=== PATIENT | male | born 1960 | race Caucasian/White ===

== ENCOUNTER 2020-08-18 09:16 | Inpatient (IN) | payer BC, SELFPAY ==
[2020-08-18] VITALS (8 sets, daily range): BP systolic 89–109; BP diastolic 46–62; PULSE 70–104; RESP 12–17; TEMP 35.4–36.6; O2SAT 98–100
--- NOTE | ~2020-08-18 | XR_ITS ---
EXAMINATION: XR foot LT min 3V DATE: 08/18/2020 10:21 INDICATION: Left foot pain. TECHNIQUE: 4 views of left foot were obtained. COMPARISON: None. FINDINGS: Pes planus is noted. No fracture. There is mild osteoarthritis of first metatarsophalangeal joint and some of the interphalangeal joints and midfoot joints. There is a suture anchor at fifth t arsometatarsal joint. There are enthesophytes at the posterior and plantar aspects of calcaneal tuber osity. IMPRESSION: 1. Pes planus. 2. Mild polyarticular osteoarthritis. Reviewed, dictated and finalized at location B. D EDUCATION DIRECTOR
--- NOTE | ~2020-08-18 | MR_ITS ---
EXAMINATION: MR foot LT wo/w con DATE: 08/19/2020 12:37 INDICATION: Left forefoot abscess TECHNIQUE: Magnetic resonance imaging (MRI) of the left fore/mid foot was performed without intraveno us contrast. Sequences included sagittal T1-weighted FSE, sagittal fluid sensitive FSE STIR, coronal PD-weighted FS FSE, coronal T1-weighted FSE, axial PD-weighted FS FSE, and axial PD-weighted FSE. COMPARISON: None FINDINGS: There is a large peripherally enhancing abscess in the superficial subcutaneous tissues over the dors um of the forefoot which extends at least 12 cm proximal to distal beginning distally but appears to be an open wound at the webspace between the second and third toes extensively proximal most margin o f imaging at the level of the cuneiforms. The abscess measures up to 10 cm medial to lateral and up t o 9 mm in maximal thickness. Distally at the base of the second and third toes there are contiguous geographic regions of nonenhan cing tissue with interspersed foci of T1 hyperintense fat with intervening retained fascial planes wh ich does not appear consistent with abscess and raises significant concern for necrotic soft tissue h istory of necrotizing fasciitis. The region of nonenhancing tissue extends beyond the plantar plate i nto the musculature and subcutaneous fat plantar to the distal diaphyses of the second-fourth metatar sals and plantar to the fifth proximal phalanx. There is significant enhancement and edema in the leticia rounding soft tissues consistent with cellulitis. No definitive gas identified within the soft tissue s. No fracture or osteomyelitis. Moderate osteoarthritis at the first metatarsophalangeal and mild os teoarthritis at multiple interphalangeal and tarsal metatarsal joints. IMPRESSION: 1. 12 x 10 x 9 mm peripherally enhancing subcutaneous abscess over the dorsum of the foot. 2. Region of nonenhancing soft tissue surrounding the base of the second and third proximal phalanges and extending into the soft tissues plantar to the distal second-fourth metatarsals which is concern ing for necrotizing fasciitis. Dr. Campa discussed these findings with Regine Deluna at 12:45 PM. 3. Mild to moderate polyarticular osteoarthritis in the forefoot. No evident osteomyelitis. Reviewed, dictated and finalized at location A. RN KEEPER IMPRESSION: 1. 12 x 10 x 9 mm peripherally enhancing subcutaneous abscess over the dorsum o f the foot. 2. Region of nonenhancing soft tissue surrounding the base of the second and th ird proximal phalanges and extending into the soft tissues plantar to the dista l second-fourth metatarsals which is concerning for necrotizing fasciitis. Dr. Campa discussed these findings with Regine Deluna at 12:45 PM. 3. Mild to moderate polyarticular osteoarthritis in the forefoot. No evident os teomyelitis.
--- NOTE | ~2020-08-18 | CT_ITS ---
EXAMINATION: CT LE LT w con DATE: 08/18/2020 22:48 INDICATION: Left foot infection. TECHNIQUE: Computed tomography (CT) of the left foot and ankle was performed without intravenous cont rast. Automated exposure control and iterative reconstruction technique were employed. The dose-lengt h product was 705.50 mGy-cm. COMPARISON: Left foot radiographs 08/18/2020 FINDINGS: Bone alignment is normal. No fracture. There is a suture anchor in base of fifth metatarsal . There is mild osteoarthritis of first metatarsophalangeal joint and many of the interphalangeal erin nts and midfoot joints. There is mild ankle joint osteoarthritis. There are enthesophytes at the post erior and plantar aspects of calcaneal tuberosity. There is widespread subcutaneous edema. IMPRESSION: 1. No evidence of osteomyelitis. 2. Mild polyarticular osteoarthritis. Reviewed, dictated and finalized at location D. LY LAWYER
[2020-08-18] MEDS: SODIUM CHLORIDE 0.9% IV 1,000 ML 999 ML IV CONT ×2 (09:30→10:57)
[2020-08-18 09:56] LABS: Hematocrit 41.5 % (42.0-52.0); Hemoglobin 14.6 g/dL (14.0-18.0); Immature Platelet Fraction Pct 5.4 % (0.9-11.2); Mean Corpuscular HGB Conc 35.2 g/dl (32-36); Mean Corpuscular Hemoglobin 35.4 pg (26-34); Mean Corpuscular Volume 100.5 fl (80-100); Mean Platelet Volume 10.4 fl (7.4-10.4); Platelet Count Result 109 k/mm3 (150-375); Red Blood Count 4.13 M/mm3 (4.6-6.20); White Blood Count 12.8 K/mm3 (4.5-10.0)
[2020-08-18 10:12] LABS: Albumin Level 3.2 g/dL (3.5-5.1); Alkaline Phosphatase 121 U/L (38-126); Anion Gap 9 mmol/L (8-16); Aspartate Amino Transferase 39 U/L (17-59); Bilirubin,Total 5.4 mg/dL (0.2-1.3); Blood Urea Nitrogen 24 mg/dL (9-20); Calcium 8.2 mg/dL (8.4-10.2); Carbon Dioxide 24 mmol/L (22-30); Chloride 90 mmol/L (98-107); Estimated Glomerular Filt Rate > 60; Glucose 103 mg/dL (75-110); Lactic Acid Reflex 5.4 mmol/L (0.7-2.1); Potassium 3.4 mmol/L (3.4-5.0); Sodium 123 mmol/L (137-145)
[2020-08-18 10:15] LABS: Band Neutrophils Percent 9 % (0-6); Lymphocytes Absolute Manual 0.38 K/mm3 (1.1-4.5); Monocytes Absolute Manual 0.25 K/mm3 (0.1-0.90); Monocytes Percent Manual 2 % (3-9); Neutrophils Absolute Manual 12.16 K/mm3 (1.3-6.7); Neutrophils Percent Manual 86 % (46-73); Platelet Estimate Adequate (Adequate); Total Cells Counted 100
[2020-08-18 10:23] LABS: Alanine Aminotransferase 21 U/L (4-50)
[2020-08-18 10:28] LABS: CRP 15.6 mg/dL (<1.0)
[2020-08-18 10:40] LABS: Erythrocyte Sedimentation Rate 28 mm/hr (0-20)
--- NOTE | 2020-08-18 11:24 | ED.GENADULT ---
HPI - General Adult General Chief complaint: Wound/Laceration Stated complaint: Left Foot Ulcer, PCP sent patient Time Seen by Provider: 08/18/20 09:23 History of Present Illness HPI narrative: Patient is a 60-year-old gentleman who presents the emergency department with chief complaint of wound to left foot. Patient was sent from his doctor's office after they have been managing a chronic wound to his left foot for some time. They have noticed that now his foot has become more reddened and the redness is tracking up his foot as well as he has areas of open draining to his toes. Patient reports he has history of liver disease and is cirrhotic. He reports he has been on antibiotics in the past for this without improvement. Related Data Home Medications Medication Instructions Recorded Confirmed aspirin 325 mg tablet 325 mg PO DAILY 08/19/19 03/01/20 furosemide 40 mg tablet 40 mg PO DAILY tablet 08/19/19 03/01/20 lactulose 10 gram/15 mL oral 5 ml PO DAILY ml 08/19/19 03/01/20 solution omeprazole 20 mg capsule,delayed 40 mg PO BID cap 08/19/19 03/01/20 release spironolactone 100 mg tablet 100 mg PO DAILY 08/19/19 03/01/20 thiamine HCl (vitamin B1) 250 mg 250 mg PO DAILY 08/19/19 03/01/20 tablet ciprofloxacin HCl 500 mg tablet 500 mg PO DAILY tablet 08/20/19 03/01/20 Allergies Allergy/AdvReac Type Severity Reaction Status Date / Time No Known Allergies Allergy Unknown Unverified 03/01/20 13:42 Review of Systems Review of Systems: Narrative: A 10 system review of systems was completed on the patient and is negative except for what is stated in the HPI. Nursing and ancillary documentation was reviewed. [facility] Past Medical History Medical History Alcohol abuse Alcoholic cirrhosis of liver with ascites Alcoholic cirrhosis of liver without ascites Atrial fibrillation with controlled ventricular rate Essential hypertension PAF (paroxysmal atrial fibrillation) Preop cardiovascular exam Surgical History Surgical History History of hernia repair History of surgery on wrist Family History Family History Mother Hypertension Family history of diabetes mellitus in first degree relative Diabetes mellitus Father Family history of pancreatic cancer Social History Social History Smoking status: Former smoker Alcohol intake: current Exam Narrative: Exam Narrative: GENERAL: Well-appearing, well-nourished, and in no acute distress. HEAD: Normocephalic, atraumatic. EYES: PERRLA and EOMI. ENT: Nares clear, no rhinorrhea or epistaxis. Mucous membranes moist. NECK: Supple. CHEST: Clear to auscultation. No respiratory distress. HEART: Regular rate and rhythm. No murmur heard. Normal peripheral pulses. ABDOMEN: Soft, nontender, nondistended, normal active bowel sounds. EXTREMITIES: Normal range of motion. No edema. Left foot there is erythema and swelling of the dorsum of the foot there is a wound in the third and fourth digits draining serosanguineous fluid. SKIN: Warm, dry, no rash. NEURO: No focal deficits. Alert and oriented x3. PSYCH: Normal mood and affect. Course Course Emergency Course: On initial evaluation fluid resuscitation was started on the patient he was also given a dose of vancomycin and Zosyn the patient's lactate was found to be elevated continuing resuscitation. Vital Signs Vital signs: Vital Signs Temperature 36.1 C L 08/18/20 10:35 Pulse Rate 70 08/18/20 10:35 Respiratory Rate 17 08/18/20 10:35 Blood Pressure 89/46 L 08/18/20 10:35 Pulse Oximetry 100 08/18/20 10:35 Temperature 36.1 C L 08/18/20 10:35 Pulse Rate 70 08/18/20 11:57 Respiratory Rate 15 08/18/20 11:57 Blood Pressure 92/54 L 08/18/20 11:57 Puls
[2020-08-18 12:08] LABS: Add Urine Microscopic? YES; Appearance Urine Clear (Clear); Bilirubin Urine Negative (Negative); Blood Urine Negative (Negative); Color Urine Yellow (Yellow); Glucose Urine UA Negative (Negative); Hyaline Casts Urine 20-29 /lpf; Ketones Urine Negative (Negative); Leukocyte Esterase Ur Negative LEU/UL (Negative); Mucus Urine Rare /lpf; Nitrate Urine Negative (Negative); Protein Urine Negative (Negative); Specific Grav Ur 1.013 (1.001-1.035); Squamous Epithelial Cell Urine Rare /hpf (Few); WBC Urine 0-3 /hpf
[2020-08-18 12:52] LABS: Reflex Lactic Acid Yes or No Add Lactic
[2020-08-18 13:29] LABS: Lactic Acid 1.6 mmol/L (0.7-2.1)
--- NOTE | 2020-08-18 13:30 | PM.IMHP ---
H&P: HPI History of Present Illness Date/Time: 08/18/20 13:30 Chief Complaint: Left foot wound. Narrative: This is a 60-year-old male with history of essential hypertension, paroxysmal atrial fibrillation, and alcoholic cirrhosis (patient longer drinking) who presented to the emergency department earlier today from his primary care provider's office for evaluation of a left foot wound. He has a chronic callus on his left foot which is being followed by local child and family services specialist. Several weeks ago ?after a long day on my feet? he noticed a large blister had developed near the callus and developed spreading erythema the following day. It got to the point where he could barely even put weight on his foot due to excruciating, sharp pain throughout the bottom of the foot which has began to extend up into the calf. The blister has since open and is draining serosanguineous fluid. He saw his child and family services specialist in follow-up this morning and was referred to the emergency department due to the development of infection. He has not been on antibiotics for this particular infection, but does take ciprofloxacin daily and has for the past 2 and half years after a hernia repair. In any regard, he reports intermittent numbness in the bottom of the left foot but with further questioning he has the same on the right foot and has been told that he likely has underlying neuropathy. Aside from the redness and bruising he has not noticed any color changes to the foot. The surrounding area has been hot to touch. Appetite has been decreased. He has not had fever, chills, or sweats. No nausea or vomiting. Review of Systems Review of Systems: Narrative: Twelve systems were reviewed with pertinent positives and negatives as per HPI. He denies fever, chills, and sweats. No sinus congestion, rhinorrhea, otalgia, or odynophagia. No known exposure to those positive for COVID-19. He denies chest pain shortness of breath. No nausea, vomiting, or diarrhea. No dysuria. No history of multidrug resistant organisms. Reports that he quit drinking alcohol about 2 years ago but did drink some over this summer 2019. No recent alcohol use. Previously on the liver transplant list but after he quit drinking his numbers drastically improved and he did not meet criteria for transplant thereafter. Except as documented, all other systems were reviewed and are negative. [facility] Past Medical History Medical History (Updated 08/18/20 @ 22:12 by Rosi Cheatham PA-C) Alcoholic cirrhosis of liver He has abstained from alcohol for at least 2 years as of July 2020. Essential hypertension Gastroesophageal reflux disease Paroxysmal atrial fibrillation Surgical History Surgical History (Updated 08/18/20 @ 13:59 by Rosi Cheatham PA-C) History of surgery on arm (~2012) ORIF right humerus fracture. History of surgery on wrist History of ventral hernia repair (~11/2013) Subsequent abdominal wall exploration with drainage of a seroma at the same site in 03/2014. Family History Family History Mother Hypertension Family history of diabetes mellitus in first degree relative Diabetes mellitus Father Family history of pancreatic cancer Social History Social History (Updated 08/18/20 @ 22:08 by Rosi Cheatham PA-C) Social History: The patient lives alone in [place]. Retired from [employer]. He has a longstanding history of alcohol abuse but has abstained from alcohol for nearly 2 years as of July 2020. A nonsmoker. No illicit substance use. He designates his daughter Shawna as his surrogate decision maker and wishes to be a full code. Smoking status: Never smoker Alcohol intake: former Substance use: never Spiritual care concerns: No Meds Home Medications and Allergies Home Medications Medication Instructions Recorded Confirmed Type furosemide 40 mg tablet 40 mg PO DAILY tablet 08/19/19
--- NOTE | 2020-08-18 14:36 | PC.NURSE ---
This patient, Rhett Garner, was admitted to IMU Room 214-01. Patient/family oriented to hospital policies and general routines including ID bracelet, bed and alarms, visiting hours, pain management, procedures, bathroom and other care routines, personal items, smoking policy, room service/diet, and visiting hours. Information on how to activate the Rapid Response Team has been discussed. Patient/Family are encouraged to report perceived risks to care and to ask questions if they do not understand what they are told or what they should do.
[2020-08-18] MEDS: SODIUM CHLORIDE 0.9% IV 1,000 ML 100 ML IV CONT (15:46)
[2020-08-18 15:52] LABS: INR 1.5; Prothrombin Time 19.1 Seconds (11.1-14.7)
[2020-08-18 15:53] LABS: Sodium 124 mmol/L (137-145)
[2020-08-18 17:00] LABS: Folic Acid 11.8 ng/mL (2.76->20)
[2020-08-18 20:10] LABS: Sodium 124 mmol/L (137-145)
[2020-08-18] MEDS: HYDROcodone/acetaminophen (*CRX) 5-325 MG TABLET 1 TAB PO (23:29)
[2020-08-18 23:46] LABS: Sodium Urine Random 13 meq/L
[2020-08-18 23:46] LABS: Sodium 124 mmol/L (137-145)
[2020-08-18 23:50] LABS: Creatinine Urine 85.6 mg/dL
[2020-08-19] VITALS (24 sets, daily range): BP systolic 90–117; BP diastolic 44–66; PULSE 66–95; RESP 10–20; TEMP 36–37.6; O2SAT 95–100; BMI 25.8
[2020-08-19] MEDS: SODIUM CHLORIDE 0.9% IV 1,000 ML 999 ML IV CONT (00:42)
[2020-08-19 04:10] LABS: Basophils Percent Auto 0.3 % (0.2-1.2); Eosinophils Percent Auto 0.1 % (0-4.4); Hematocrit 33.4 % (42.0-52.0); Hemoglobin 11.8 g/dL (14.0-18.0); Immature Granulocyte Absolute 0.13 K/mm3 (0.00-0.031); Immature Granulocyte Percent A 1.3 % (0-0.5); Lymphocytes Absolute Auto 0.26 K/mm3 (0.9-3.2); Lymphocytes Percent Auto 2.6 % (18.3-44.2); Mean Corpuscular HGB Conc 35.3 g/dl (32-36); Mean Corpuscular Hemoglobin 34.7 pg (26-34); Mean Corpuscular Volume 98.2 fl (80-100); Mean Platelet Volume 9.9 fl (7.4-10.4); Monocytes Absolute Auto 1.5 K/mm3 (0.1-0.6); Monocytes Percent Auto 14.3 % (2.6-8.5); Neutrophils Absolute Auto 8.3 K/mm3 (1.3-6.7); Neutrophils Percent Auto 81.4 % (45.5-73.1); Platelet Count Result 79 k/mm3 (150-375); Red Cell Distribution Width 12.9 % (11.5-14.5); White Blood Count 10.1 K/mm3 (4.5-10.0)
[2020-08-19 04:22] LABS: Alanine Aminotransferase 14 U/L (4-50); Albumin Level 2.1 g/dL (3.5-5.1); Alkaline Phosphatase 85 U/L (38-126); Anion Gap 2 mmol/L (8-16); Aspartate Amino Transferase 29 U/L (17-59); Bilirubin Direct 0.6 mg/dL (0-0.3); Bilirubin Indirect 1.3 mg/dL (0-1.1); Bilirubin,Total 2.9 mg/dL (0.2-1.3); Blood Urea Nitrogen 19 mg/dL (9-20); Calcium 7.1 mg/dL (8.4-10.2); Carbon Dioxide 25 mmol/L (22-30); Chloride 98 mmol/L (98-107); Estimated CRCL calculation 91 ml/min; Estimated Glomerular Filt Rate > 60; Glucose 100 mg/dL (75-110); Potassium 3.6 mmol/L (3.4-5.0); Sodium 125 mmol/L (137-145)
[2020-08-19] MEDS: SODIUM CHLORIDE 0.9% IV 1,000 ML 100 ML IV CONT (05:51)
[2020-08-19] MEDS: HYDROcodone/acetaminophen (*CRX) 5-325 MG TABLET 1 TAB PO (06:16)
[2020-08-19] MEDS: SODIUM CHLORIDE 0.9% IV 1,000 ML 500 ML IV CONT (06:57)
[2020-08-19 08:09] LABS: Sodium 126 mmol/L (137-145)
[2020-08-19] MEDS: LACTULOSE 20 GM/30 ML UDC 3.33333 GM PO (08:50)
[2020-08-19] MEDS: THIAMINE HCL 50 MG TABLET PO (08:51)
[2020-08-19] MEDS: THIAMINE HCL 100 MG TABLET 200 MG PO (08:51)
[2020-08-19] MEDS: PANTOPRAZOLE 40 MG TABLET PO (08:51)
--- NOTE | 2020-08-19 11:48 | PM.CNOR ---
Assessment and Plan Assessment and plan (1) Neuropathic ulcer of foot: Qualifiers: Laterality: left Non-pressure ulcer stage: with necrosis of muscle Qualified Code(s): L97.523 - Non-pressure chronic ulcer of other part of left foot with necrosis of muscle <Regine Maciel Deluna, [facility] - Last Filed: 08/19/20 12:58> Code(s): L97.509 - Non-pressure chronic ulcer of other part of unspecified foot with unspecified severity <Regine Maciel Deluna, INSTRUMENT ROOM TECHNICIAN - Last Filed: 08/19/20 12:58> Status: Acute <Regine Maciel Deluna, INSTRUMENT ROOM TECHNICIAN - Last Filed: 08/19/20 12:58> Assessment and Plan: History, exam and radiographs reviewed with the patient. CT scan of the lower extremity does not include the forefoot/area of immediate concern. We will obtain MRI of the left foot at this time for further evaluation and surgical planning purposes. Continue IV antibiotics per the hospitalist team. Left foot to be covered with dry gauze dressing, orders entered and nursing made aware. Elevate the left lower extremity on pillows. Nonweightbearing left lower extremity. Awaiting culture results of foot wound and blood cultures. Preliminary results both reveal Gram-positive cocci. Patient NPO at this time. We will determine surgical intervention pending MRI results. <Regine Deluna, INSTRUMENT ROOM TECHNICIAN - Last Filed: 08/19/20 12:58> (2) Left leg cellulitis: Code(s): L03.116 - Cellulitis of left lower limb <Regine Lawsmiky, [facility] - Last Filed: 08/19/20 12:58> Status: Acute <Regine Maciel Deluna, INSTRUMENT ROOM TECHNICIAN - Last Filed: 08/19/20 12:58> (3) Severe sepsis: Code(s): A41.9 - Sepsis, unspecified organism; R65.20 - Severe sepsis without septic shock <Regine Maciel Deluna, INSTRUMENT ROOM TECHNICIAN - Last Filed: 08/19/20 12:58> Status: Acute <Regine Maciel Deluna, INSTRUMENT ROOM TECHNICIAN - Last Filed: 08/19/20 12:58> Assessment and Plan: Preliminary blood cultures revealed gram positive cocci in clusters. Awaiting final cultures currently. Antibiotics per the hospitalist service in the interim, collaboration this AM via telephone. <KIRK ShahP - Last Filed: 08/19/20 12:58> (4) Cellulitis of foot, left: Code(s): L03.116 - Cellulitis of left lower limb <Regine Deluna, INSTRUMENT ROOM TECHNICIAN - Last Filed: 08/19/20 12:58> Status: Acute <KIRK ShahP - Last Filed: 08/19/20 12:58> Assessment and Plan: Continue IV antibiotics of vancomycin and Zosyn per the hospitalist service. <Regine Deluna, INSTRUMENT ROOM TECHNICIAN - Last Filed: 08/19/20 12:58> (5) Alcohol abuse: Code(s): F10.10 - Alcohol abuse, uncomplicated <Regine Deluna, INSTRUMENT ROOM TECHNICIAN - Last Filed: 08/19/20 12:58> Status: Acute <KIRK ShahP - Last Filed: 08/19/20 12:58> Assessment and Plan: Per patient, his most recent drink was approximately 2 weeks ago. Continue to monitor. <KIRK ShahP - Last Filed: 08/19/20 12:58> (6) Abscess of foot including toes: Qualifiers: Laterality: left Qualified Code(s): L02.612 - Cutaneous abscess of left foot <Regine Deluna, INSTRUMENT ROOM TECHNICIAN - Last Filed: 08/19/20 12:58> Code(s): L02.619 - Cutaneous abscess of unspecified foot <Regine Deluna, INSTRUMENT ROOM TECHNICIAN - Last Filed: 08/19/20 12:58> Status: Acute <Regine Deluna, INSTRUMENT ROOM TECHNICIAN - Last Filed: 08/19/20 12:58> Assessment and Plan: patient seen and examined 8:15 a.m. August 19, 2020. Medical record reviewed. History, physical exam reviewed with the patient. MRI reviewed which shows abscess of the dorsum of the left foot between the 2nd and 3rd toes. Still no evidence of osteomyelitis Or septic arthritis. Patient condition seems to be worsening despite intravenous antibiotics. Recommend debridement of the foot. Surgery discussed with patient including the risks, benefits and alternatives. Patient questions answered and he would like to proceed. Discussed possibility of amputation of 1 or more toes if determined to be nonviable at the time of surgical gaye
--- NOTE | 2020-08-19 14:13 | ECG_ITS ---
Measurements Intervals [place] Rate: 90 P: 48 NM: 172 QRS: -16 QRSD: 102 T: 47 QT: 365 QTc: 447 Interpretive Statements SINUS RHYTHM ATRIAL PREMATURE COMPLEX BASELINE ARTIFACT- I, II, III, AVL, AVF, V1-V3 BORDERLINE ECG Electronically Signed On 08-19-2020 15:00:34 VICE PRESIDENT COMPLIANCE by Jorge Limon D.O.
--- NOTE | 2020-08-19 14:57 | WPDINFPN2 ---
Progress Note: A&P Assessment and Plan (1) Cellulitis of foot, left: Code(s): L03.116 - Cellulitis of left lower limb Status: Acute Assessment and Plan: Cellulitis/abscess of L foot resulting in bacteremia REC Vanc and jordy, orthopedics to address the need for surgery Subjective Date/time seen: 08/19/20 14:57 Objective Data Vital Signs Vital Signs: Vital Signs - 24 hr 08/18/20 14:59 08/18/20 16:00 08/18/20 18:00 Temperature 35.4 C L 36.0 C L Pulse Rate 76 76 77 Respiratory Rate 12 12 Blood Pressure 99/62 L 99/62 L Pulse Oximetry 100 100 08/18/20 20:00 08/18/20 22:00 08/19/20 00:00 Temperature 36.6 C 37.5 C Pulse Rate 93 104 H 92 Respiratory Rate 16 14 Blood Pressure 109/58 L 96/46 L Pulse Oximetry 98 95 08/19/20 02:00 08/19/20 04:00 08/19/20 06:00 Temperature 36.6 C Pulse Rate 89 87 87 Respiratory Rate 15 Blood Pressure 96/48 L Pulse Oximetry 96 08/19/20 08:00 08/19/20 12:00 Temperature 36.4 C L 36.6 C Pulse Rate 83 86 Respiratory Rate 12 12 Blood Pressure 107/52 L 110/58 L Pulse Oximetry 98 100 Intake/Output Intake/Output: Intake & Output 08/16/20 08/17/20 08/18/20 08/19/20 23:59 23:59 23:59 23:59 Intake Total 2500 2800 Output Total 700 600 Balance 1800 2200 Meds/Results Medications: Active Medications Generic Name Dose Route Start Last Admin Trade Name Freq PRN Reason Stop Dose Admin Acetaminophen 650 mg 08/18/20 22:37 Acetaminophen 325 Mg Tablet PO Q6H PRN Mild Pain (1-3) or Fever Hydrocodone Bitart/Acetaminophen 1 tab 08/18/20 22:37 08/19/20 06:16 Hydrocodone/Acetaminophen (*Crx) 5-325 Mg Tablet PO 1 tab Q6H PRN Administration Pain Rated 4-6 Sodium Chloride 1,000 mls @ 100 mls/hr 08/18/20 12:10 08/19/20 05:51 Normal Saline Iv IV CONT 100 mls/hr .Q10H PAT Administration Vancomycin HCl 1,500 mg in 500 mls @ 333.333 mls/hr 08/19/20 08:00 08/19/20 10:54 Vancomycin 1,500 Mg/D5w 500 Ml IVPB Infused Q12H PAT Infusion Piperacillin/Tazobactam/Dextrose 3.375 gm in 50 mls @ 100 mls/hr 08/19/20 12:00 Zosyn 3.375 Gm/D5w 50ml Pm IVPB Q6H PAT Lactulose 3.85290 gm 08/19/20 09:00 08/19/20 08:50 Lactulose 20 Gm/30 Ml Udc PO 3.38504 gm QAM PAT Administration Morphine Sulfate 2 mg 08/18/20 22:37 Morphine Sulfate (*Crx) 2 Mg/Ml Inj IV PUSH Q4H PRN Pain Rated 7-10 Pantoprazole Sodium 40 mg 08/19/20 09:00 08/19/20 08:51 Pantoprazole 40 Mg Tablet PO 09/18/20 09:01 40 mg BID PAT Administration Thiamine HCl 200 mg 08/19/20 09:00 08/19/20 08:51 Thiamine Hcl 100 Mg Tablet PO 200 mg QAM PAT Administration Thiamine HCl 50 mg 08/19/20 09:00 08/19/20 08:51 Thiamine Hcl 50 Mg Tablet PO 50 mg QAM PAT Administration Radiology Results: ITS Impressions Foot X-Ray 08/18/20 10:25 IMPRESSION: 1. Pes planus. 2. Mild polyarticular osteoarthritis. Lower Extremity CT 08/19/20 08:12 IMPRESSION: 1. No evidence of osteomyelitis. 2. Mild polyarticular osteoarthritis. Foot MRI 08/19/20 12:46 IMPRESSION: 1. 12 x 10 x 9 mm peripherally enhancing subcutaneous abscess over the dorsum of the foot. 2. Region of nonenhancing soft tissue surrounding the base of the second and third proximal phalanges and extending into the soft tissues plantar to the distal second-fourth metatarsals which is concerning for necrotizing fasciitis. Dr. Campa discussed these findings with Regine Deluna at 12:45 PM. 3. Mild to moderate polyarticular osteoarthritis in the forefoot. No evident osteomyelitis. Labs Labs: Laboratory Results - last 24 hr 08/18/20 08/18/20 08/18/20 15:30 15:31 15:31 WBC RBC Hgb Hct MCV MCH MCHC RDW Plt Count MPV Immature Gran % (Auto) Neut % (Auto) Lymph % (Auto) [place] % (Auto) Eos % (Auto) Baso % (Auto) Lymph # (Auto) [place] # (Auto)
--- NOTE | 2020-08-19 15:19 | WPDHPUPDATE1 ---
History and Physical Update Update Date/Time: 08/19/20 15:19 History and Physical has been reviewed, including an updated exam of the patient. There are NO changes in the patient's condition. As per consult note, MRI reviewed and shows abscess of the left foot. Plan for debridement left foot with possible toe amputation. Risks, benefits, and alternatives have been discussed and questions answered. Patient agrees to proceed with procedure.
[2020-08-19 15:22] LABS: Sodium 123 mmol/L (137-145)
--- NOTE | 2020-08-19 16:36 | PM.IMPN ---
Progress Note: A&P Assessment and Plan (1) Abscess of foot including toes: Qualifiers: Laterality: left Qualified Code(s): L02.612 - Cutaneous abscess of left foot Code(s): L02.619 - Cutaneous abscess of unspecified foot Status: Acute Assessment and Plan: MRI reviewed Ortho consult appreciated Local care Vanc + Ancef Appreciate ID consult (2) Neuropathic ulcer of foot: Qualifiers: Laterality: left Non-pressure ulcer stage: with necrosis of muscle Qualified Code(s): L97.523 - Non-pressure chronic ulcer of other part of left foot with necrosis of muscle Code(s): L97.509 - Non-pressure chronic ulcer of other part of unspecified foot with unspecified severity Status: Acute Assessment and Plan: Local care Supportive care (3) Alcohol abuse: Code(s): F10.10 - Alcohol abuse, uncomplicated Status: Acute Assessment and Plan: Continue to monitor CIWA as needed (4) Left leg cellulitis: Code(s): L03.116 - Cellulitis of left lower limb Status: Acute Assessment and Plan: Vanc + Ancef. (5) Wound of left foot: Code(s): S91.302A - Unspecified open wound, left foot, initial encounter Status: Acute Assessment and Plan: Local care (6) Atrial fibrillation with controlled ventricular rate: Code(s): I48.91 - Unspecified atrial fibrillation Status: Acute Subjective Date/time seen: 08/19/20 16:36 Patient states that except for his foot he feels well. Review of Systems Review of Systems: Narrative: L foot swelling and pain Constitutional: Comments: no fevers, no chills. Cardiovascular: Comments: no chest pain, no pnd, no orhtopnea. Respiratory: Comments: no cough, no sob. Gastrointestinal: Comments: no n/v/abdominal pain. Musculoskeletal: Comments: L foot swelling. Integumentary/Breasts: Comments: Left foot redness, swelling, pain. Neurologic: Comments: no sensory motor deficit Exam Narrative: Exam Narrative: Lying in bed. Const: General: cooperative, comfortable, no acute distress, alert, awake, Physically active and other (Chronically ill looking.) Nutritional Appearance: thin Orientation/consciousness: patient oriented x3 HENMT: Head: normocephalic Face and sinus: normal facial exam Eyes: General: appearance normal, both eyes and all related structures Pupils: Equal, round and reactive pupils present EOM: EOMs intact bilaterally Neck: Neck: no lymphadenopathy, supple and no JVD Resp: Auscultation: clear to auscultation bilaterally Cardio: Jugular venous distension: no JVD Rate: regular rate Rhythm: regular rhythm GI: GI Palp: Yes Soft to palpation and Yes No hepatosplenomegaly present Skin: Wounds: wounds noted (L foot) Neuro: General: patient oriented x3 Cranial nerves: Yes CN's II-XII intact bilaterally and Yes Equal, round and reactive pupils present Cognition (Neuro): normal cognition Motor exam (neuro): 5/5 motor strength present throughout Extrem: General: pedal edema on the left (Dorsal edema ) Objective Data Vital Signs Vital Signs: Vital Signs - 24 hr 08/18/20 18:00 08/18/20 20:00 08/18/20 22:00 Temperature 97.8 F Pulse Rate 77 93 104 H Respiratory Rate 16 Blood Pressure 109/58 L Pulse Oximetry 98 08/19/20 00:00 08/19/20 02:00 08/19/20 04:00 Temperature 99.5 F 98 F Pulse Rate 92 89 87 Respiratory Rate 14 15 Blood Pressure 96/46 L 96/48 L Pulse Oximetry 95 96 08/19/20 06:00 08/19/20 08:00 08/19/20 10:00 Temperature 97.5 F L Pulse Rate 87 83 85 Respiratory Rate 12 Blood Pressure 107/52 L Pulse Oximetry 98 08/19/20 12:00 08/19/20 14:00 08/19/20 16:00 Temperature 97.9 F Pulse Rate 82 84 93 Respiratory Rate 12 Blood Pressure 110/58 L Pulse Oximetry 100 Intake/Output Intake/Output: Intake & Output 08/16/20 08/17/20 08/18/20 08/19/20 23:59 23:59 23:59 23:59 Intake Total 2500 2800 Out
--- NOTE | 2020-08-19 16:40 | PC.NURSE ---
Pt to surgery via stretcher, IV intact.
--- NOTE | 2020-08-19 16:55 | WPDANESEPPF ---
Anes - Initial Pre Proc Eval Procedure: Operation Date: 08/19/20 18:00 Proposed Procedures p Incision and Debridement Left Foot Ulcer, - Blair Negron MD s Possible Third Ray Amputation - Blair Negron MD Date/Time: 08/19/20 16:55 Surgeon: Glen Galicia MD Pre Op Diagnosis: left foot cellulitis Patient Data Age: 60 Gender: M Height: 6 ft 2 in Weight: 91.2 kg Last Vital Signs Temp 36.6 C 08/19/20 12:00 Pulse 93 08/19/20 16:00 Resp 12 08/19/20 12:00 BP 110/58 L 08/19/20 12:00 Pulse Ox 100 08/19/20 12:00 Allergies Allergy/AdvReac Type Severity Reaction Status Date / Time No Known Allergies Allergy Unknown Verified 08/18/20 14:53 Home Medications Medication Instructions Recorded Confirmed Type furosemide 40 mg tablet 40 mg PO DAILY tablet 08/19/19 08/18/20 History lactulose 10 gram/15 mL oral 5 ml PO DAILY ml 08/19/19 08/18/20 History solution omeprazole 20 mg capsule,delayed 40 mg PO BID cap 08/19/19 08/18/20 History release spironolactone 100 mg tablet 100 mg PO DAILY 08/19/19 08/18/20 History thiamine HCl (vitamin B1) 250 mg 250 mg PO DAILY 08/19/19 08/18/20 History tablet ciprofloxacin HCl 500 mg tablet 500 mg PO DAILY tablet 08/20/19 08/18/20 History metoprolol succinate 50 mg 50 mg PO DAILY #30 tablet 05/23/20 08/18/20 Rx tablet,extended release 24 hr Laboratory Tests 08/18/20 08/18/20 08/18/20 15:31 19:46 22:02 WBC RBC Hgb Hct MCV MCH MCHC RDW Plt Count MPV Immature Gran % (Auto) Neut % (Auto) Lymph % (Auto) [place] % (Auto) Eos % (Auto) Baso % (Auto) Lymph # (Auto) [place] # (Auto) Eos # (Auto) Baso # (Auto) Abs Immat Gran (auto) Absolute Neuts (auto) Absolute Nucleated RBC Nucleated RBC % Sodium 124 mmol/L L mmol/L (137-145) Potassium Chloride Carbon Dioxide Anion Gap BUN Creatinine Estim Creat Clear Calc Estimated GFR Glucose Calcium Total Bilirubin Direct Bilirubin Indirect Bilirubin AST ALT Alkaline Phosphatase Total Protein Albumin Vitamin B12 995.0 pg/mL H pg/mL (239-931) Folate 11.8 ng/mL ng/mL (2.76->20) Urine Osmolality Ur Random Sodium 13 meq/L meq/L Urine Creatinine 08/18/20 08/18/20 08/18/20 23:27 23:28 23:28 WBC RBC Hgb Hct MCV MCH MCHC RDW Plt Count MPV Immature Gran % (Auto) Neut % (Auto) Lymph % (Auto) [place] % (Auto) Eos % (Auto) Baso % (Auto) Lymph # (Auto) [place] # (Auto) Eos # (Auto) Baso # (Auto) Abs Immat Gran (auto) Absolute Neuts (auto) Absolute Nucleated RBC Nucleated RBC % Sodium 124 mmol/L L mmol/L (137-145) Potassium Chloride Carbon Dioxide Anion Gap BUN Creatinine Estim Creat Clear Calc Estimated GFR Glucose Calcium Total Bilirubin Direct Bilirubin Indirect Bilirubin AST ALT Alkaline Phosphatase Total Protein Albumin Vitamin B12 Folate Urine Osmolality Pending Ur Random
[2020-08-19] MEDS: SODIUM CHLORIDE 0.9% IV 500 ML 30 ML IV CONT (17:04)
[2020-08-19] MEDS: ceFAZolin 2 GM/D5W 50 ML 2 GM/50 ML BAG IVPB ×2 (17:05→23:16)
[2020-08-19] MEDS: BUPIVACAINE HCL 0.5% PF 30 ML VIAL INFILTRATE (19:13)
--- NOTE | 2020-08-19 19:30 | P.OP_ITS ---
Procedure Note - Detailed Date of procedure: 08/19/20 Pre-op diagnosis: left foot cellulitis Post-op diagnosis: other (Necrotizing fasciitis left foot) Procedure performed: Debridement of left diabetic foot ulcer, debridement necrotizing fasciitis left foot Description of procedure: Indications: Patient is a 60-year-old gentleman with bilateral lower extremity peripheral neuropathy and left plantar foot ulcer. MRI demonstrates abscess between the 2nd and 3rd toes as well as inflammation and edema in the fascia suspicious for necrotizing fasciitis. Patient presents for operative treatment. What was done: Patient identified in the preoperative holding. Informed consent given. Operative extremity marked. Patient received intravenous antibiotics. Patient brought to the operating room where underwent general anesthetic by anesthesia team. Positioned supine on operating room table. Time-out performed confirming the patient, site of the surgery and the plan. Left lower extremity prepped draped usual sterile surgical fashion using a Betadine prep solution. Local anesthetic done at the ankle level with 0.5% Marcaine plain. The small plantar ulcer at the 2nd metatarsal head level was probed and noted to have depth through the intermetatarsal space. Fifteen blade knife used to ellipse the ulcer and skin, subcutaneous tissue and muscle sharply debrided and excised. Wound thoroughly irrigated antibiotic solution. On the dorsum a wound which had developed in the 2nd wound webspace was extended proximally with a 15 blade knife to the talonavicular level. The skin had from the deeper tissue along the fascial plane. This extended over to the dorsomedial aspect of the 1st metatarsal and laterally to the dorsal lateral aspect of the 4th metatarsal. It did proceed down into the 2nd webspace as well as the 3rd webspace. Fifteen blade knife was used to debride devitalized tissue which contained contained mostly of fascia and the soft tissue adherent to the fascia. No bone or tendon or joint involvement noted. Fascia around 75% of the base of the 3rd toe was debrided. 50% of the 2nd toe in 25% of the 4th toe was involved. Wound thoroughly irrigated with antibiotic solution. Unable to penetrate any further medial, lateral or proximal along the fascial plane. Wound packed with Betadine soaked sterile gauze. Sterile dressing applied. The patient was then woken from anesthesia, extubated and taken to the recovery room in stable condition. All sponge, needle, instrument counts were correct at the end of the case. Implants: None Anesthesia: GLMA Surgeon: Blair Negron MD Software Sales: 1st certified medical technician assistant Estimated blood loss (mL): 25 Tourniquet time (min): 0 Drains: No Packing: Yes Pathology: other (G stain stat, aerobic and anaerobic culture) Complications: None Condition: stable Disposition: PACU
--- NOTE | 2020-08-19 19:33 | CONS_ITS ---
DATE OF CONSULTATION: 08/19/2020 REASON FOR CONSULTATION: Bacteremia. HISTORY OF PRESENT ILLNESS: The patient is a 60-year-old male with cirrhosis. His liver specialist apparently told him he needs to stay on the ciprofloxacin indefinitely and he takes 500 mg once daily. I presume that this is for an indication of SBP prevention. He is not on rifaximin. He reports several months of an ulcer over the plantar aspect of both feet, followed by Podiatry. Beginning 3 days before admission, he noted new onset of edema of the left foot and 2 days of increasing pain, swelling, and erythema. No fever, rigors or night sweats at home. No other recent antibiotics. He presented to the hospital yesterday, has been given vancomycin, Ancef, imipenem, and piperacillin at various times. Consultation requested. He denies any history of previous bloodstream infection. Has been on no immunosuppressants. HABITS: Alcohol to excess. Occasional marijuana. No tobacco. PRESENT MEDICATIONS: List reviewed. ALLERGIES: NONE KNOWN. PAST MEDICAL HISTORY: Alcoholic cirrhosis, hypertension, GERD, PAF. He has had plates and screws or pins placed in the right arm for a humerus fracture about 5 years ago. Also previous wrist surgery and ventral hernia repair. FAMILY HISTORY: Not pertinent to his present illness. SOCIAL HISTORY: He lives alone locally. Retired from [employer]. REVIEW OF SYSTEMS: Constitutional, GI, musculoskeletal, skin, respiratory otherwise negative. PHYSICAL EXAMINATION: GENERAL: This is a middle-aged male who appears older than his actual age. No acute distress. VITAL SIGNS: Since arrival yesterday afebrile, 110/58, 86, 12, 100% on room air. SKIN: Warm and dry. EENT: No icterus. The pupils are equal, round, and reactive to light. The oropharynx, oral mucosa normal. NECK: No masses or meningismus. LUNGS: Clear to auscultation. CARDIAC: Regular rate and rhythm. No murmurs or gallops. Pulses 1+. ABDOMEN: No evidence of ascites. No tenderness, mass, or organomegaly. EXTREMITIES: No clubbing, cyanosis, edema on the right nor in the upper extremities. On the left, he has erythema, edema of the entire left foot. Callus formation over the plantar aspect of both feet and warmth and tenderness over the distal right leg and distal left leg as well. LABORATORY DATA: Blood cultures 2/2 sets gram-positive cocci in clusters. Wound culture collected as a superficial swab shows moderate gram-positive cocci and a few white cells. Otherwise, his white count was 12.8, now 10.1, hemoglobin 11.8, platelets are 79,000 down from 109,000. Differential is reviewed. He has hyponatremia, albumin is 2.1. His bilirubin is 2.9 total, 1.3 indirect. His urinalysis, no evidence of infection. RADIOLOGY: Lower extremity CT showed osteoarthritis. Foot x-ray, same findings. Also pes planus. His foot MRI just completed shows a 12 cm abscess over the dorsum of the foot, nonenhancing soft tissue surrounding the 2nd and 3rd phalanges and possible necrotizing fasciitis. ASSESSMENT: 1. Foot cellulitis due to abscess, now resulting in bacteremia. Other causes of his bacteremia are unlikely. This could include coagulase-negative Staph, methicillin-resistant Staphylococcus aureus or oxacillin-sensitive Staphylococcus aureus. I doubt micrococcus or other gram-positive infections. 2. Alcoholism with immunocompromise. RECOMMENDATIONS: 1. Ancef and vancomycin. 2. Orthopedic Surgery following for any surgical intervention. 3. Length of antibiotics to be determined. Thank you very much for asking me to see him. HARINDER CROW M.D. [employer] :
[2020-08-19] MEDS: DOCUSATE SODIUM 100 MG CAPSULE PO (21:10)
[2020-08-19 21:17] LABS: Basophils Absolute Auto 0.1 K/mm3 (0.0-0.1); Basophils Percent Auto 0.5 % (0.2-1.2); Eosinophils Percent Auto 0.2 % (0-4.4); Hematocrit 36.8 % (42.0-52.0); Hemoglobin 12.9 g/dL (14.0-18.0); Immature Granulocyte Absolute 0.08 K/mm3 (0.00-0.031); Immature Granulocyte Percent A 0.9 % (0-0.5); Immature Platelet Fraction Pct 2.7 % (0.9-11.2); Lymphocytes Absolute Auto 0.25 K/mm3 (0.9-3.2); Lymphocytes Percent Auto 2.7 % (18.3-44.2); Mean Corpuscular HGB Conc 35.1 g/dl (32-36); Mean Corpuscular Volume 99.7 fl (80-100); Mean Platelet Volume 9.7 fl (7.4-10.4); Monocytes Absolute Auto 0.9 K/mm3 (0.1-0.6); Monocytes Percent Auto 9.8 % (2.6-8.5); Neutrophils Absolute Auto 8.1 K/mm3 (1.3-6.7); Neutrophils Percent Auto 85.9 % (45.5-73.1); Platelet Count Result 99 k/mm3 (150-375); Red Blood Count 3.69 M/mm3 (4.6-6.20); Red Cell Distribution Width 13.1 % (11.5-14.5); White Blood Count 9.4 K/mm3 (4.5-10.0)
[2020-08-19] MEDS: MORPHINE SULFATE (*CRX) 2 MG/ML INJ IV PUSH (21:18)
[2020-08-19 21:27] LABS: Anion Gap 4 mmol/L (8-16); Blood Urea Nitrogen 14 mg/dL (9-20); Calcium 7.7 mg/dL (8.4-10.2); Carbon Dioxide 24 mmol/L (22-30); Chloride 98 mmol/L (98-107); Estimated CRCL calculation 133 ml/min; Estimated Glomerular Filt Rate > 60; Glucose 106 mg/dL (75-110); Potassium 3.5 mmol/L (3.4-5.0); Sodium 126 mmol/L (137-145)
[2020-08-20] VITALS (10 sets, daily range): BP systolic 97–110; BP diastolic 56–67; PULSE 63–78; RESP 18–20; TEMP 35.7–36.2; O2SAT 98–100
[2020-08-20] MEDS: ceFAZolin 2 GM/D5W 50 ML 2 GM/50 ML BAG IVPB ×3 (06:31→22:03)
--- NOTE | 2020-08-20 07:40 | PM.PNORT ---
Progress Note: A&P Assessment and Plan (1) Necrotizing fasciitis of ankle and foot: Code(s): M72.6 - Necrotizing fasciitis Status: Acute Assessment and Plan: POD #1 Debridement left foot Dressing changed. Wound clean, no signs proximal extension of infection from wound. Cxs G+ cocci. Cont IV Abx until id'ed BID dressing changes. May move to med floor from Ortho view Subjective Subjective Date/Time Seen: 08/20/20 07:40 Pt awake, alert. Pain left foot overnight. Better now. Exam Const: General: comfortable and no acute distress Nutritional Appearance: well nourished Orientation/consciousness: patient oriented x3 Limitations: no limitations HENMT: Head: normocephalic and atraumatic Ears: external ears normal Face and sinus: face symmetric Mouth: Yes moist mucous membranes Eyes: General: appearance normal, both eyes and all related structures Eyelids: eyelids normal Conjunctivae: conjunctivae normal Sclera: sclerae normal Neck: Neck: supple and no JVD Resp: Effort & Inspection: normal respiratory effort Cardio: Jugular venous distension: no JVD Rate: regular rate Rhythm: regular rhythm GI: Inspection: non-distended GI Palp: Yes Soft to palpation and No Tenderness to palpation present (GI) Neuro: General: gait normal Cognition (Neuro): normal cognition Speech: normal speech Extrem: Left lower extremity: lower leg Details: erythema, tenderness and pitting edema Details: 2+, ankle (erythema ) Details: tenderness, swelling Details: diffusely, normal ROM and warmth and foot Details: tenderness (2nd/3rd Ray ), abnormal ROM of toe (2nd/3rd Ray ) Details: pain with active ROM Location: of the 2nd digit and of the 3rd digit, warmth, edema, ecchymosis, vascular exam (dopplered pedal pulse ) and motor-sensory exam (neuropathy ) two point discrimination abnormal and light-touch abnormal; abnormal capillary refill Other: Left foot dressing changed. Open wound clean. No signs of purulence. Tissue beefy red. swelling extending up the left leg- improved from yesterday. Minimal sensation to touch. Doppler pedal pulses. Unable to palpate pedal pulses. Erythema from forefoot to the midshaft of the proximal tibia-improved. Right foot with decreased sensation consistent with neuropathy. He also has a dried callus on the plantar aspect of the 2nd MTP joint which measures 0.2 x 0.2 x 0.0 cm. Psych: Mental Status: mental status grossly normal Affect: normal affect Objective Data Vital Signs Vital Signs: Vital Signs - 24 hr 08/19/20 08:00 08/19/20 10:00 08/19/20 12:00 Temperature 97.5 F L 97.9 F Pulse Rate 83 85 82 Respiratory Rate 12 12 Blood Pressure 107/52 L 110/58 L Pulse Oximetry 98 100 08/19/20 14:00 08/19/20 16:00 08/19/20 17:09 Temperature 99 F Pulse Rate 84 93 95 Respiratory Rate 18 Blood Pressure 109/59 L Pulse Oximetry 99 08/19/20 19:18 08/19/20 19:30 08/19/20 19:45 Temperature 99.6 F Pulse Rate 67 66 89 Respiratory Rate 10 L 18 17 Blood Pressure 90/49 L 95/56 L 111/44 L Pulse Oximetry 100 100 99 08/19/20 20:00 08/19/20 20:15 08/19/20 20:31 Temperature Pulse Rate 92 92 90 Respiratory Rate 20 20 19 Blood Pressure 114/66 109/65 113/62 Pulse Oximetry 99 98 99 08/19/20 20:36 08/19/20 20:51 08/19/20 20:55 Temperature 97.4 F L 97.6 F Pulse Rate 83 81 81 Respiratory Rate 20 20 20 Blood Pressure 117/56 L 113/57 L Pulse Oximetry 99 99 99 08/19/20 21:21 08/19/20 22:00 08/19/20 22:21 Temperature 97.3 F L 97.2 F L Pulse Rate 92 80 82 Respiratory Rate 20 20 Blood Pressure 105/58 L 107/60 Pulse Oximetry 99 99 08/19/20 23:19 08/19/20 23:25 08/20/20 00:00 Temperature 96.8 F L 96.8 F L Pulse Rate 74 74 74 Respiratory Rate 20 20 20 Blood Pressure 102/58 L 102/58 L Pulse Oximetry 100 100 100 08/20/20 02:00 08/20/20 04:00 08/20/20 06:00 Temperature 97.2 F L Pulse Rate 67 67 63 Respiratory Rate 20 Blood Pressure 110/56 L Pulse Oximet
[2020-08-20 08:17] LABS: Vancomycin Trough 12.4 ug/mL (10.0-20.0)
[2020-08-20] MEDS: MORPHINE SULFATE (*CRX) 2 MG/ML INJ IV PUSH ×2 (08:22→22:02)
[2020-08-20] MEDS: THIAMINE HCL 100 MG TABLET 200 MG PO (08:27)
[2020-08-20] MEDS: SOD HYPOCHLORITE 1/4 STRENGTH 473 ML 1 APPLIC TOPICAL ×2 (08:28→22:43)
[2020-08-20] MEDS: LACTULOSE 20 GM/30 ML UDC 3.33333 GM PO (08:28)
[2020-08-20] MEDS: METOPROLOL SUCCINATE EXT REL 50 MG TABCR PO (08:28)
[2020-08-20] MEDS: THIAMINE HCL 50 MG TABLET PO (08:28)
[2020-08-20] MEDS: SPIRONOLACTONE 50 MG TABLET 100 MG PO (08:28)
[2020-08-20] MEDS: PANTOPRAZOLE 40 MG TABLET PO ×2 (08:28→16:20)
[2020-08-20] MEDS: DOCUSATE SODIUM 100 MG CAPSULE PO ×2 (08:29→19:54)
[2020-08-20 08:43] LABS: Erythrocyte Sedimentation Rate 70 mm/hr (0-20)
[2020-08-20 09:22] LABS: CRP 16.9 mg/dL (<1.0)
--- NOTE | 2020-08-20 10:32 | WPDANESPN ---
Anes - Prog Note Post-Op Date/Time: 08/20/20 10:32 Cardiovascular status: normal Respiratory status: normal Airway patency: baseline Mental status: baseline Post-Op hydration status: normal Vital Signs: Last Vital Signs Temp 35.7 C L 08/20/20 08:00 Pulse 73 08/20/20 08:28 Resp 18 08/20/20 08:00 BP 106/61 08/20/20 08:00 Pulse Ox 100 08/20/20 08:00 Pain Score (VAS): 08/07 I/O: Intake & Output 08/19/20 08/20/20 08/20/20 23:59 07:59 15:59 Intake Total 600 50 Output Total 400 400 Balance 600 -350 -400 Laboratory Tests 08/19/20 20:52 08/19/20 20:52 08/19/20 08/19/20 08/19/20 15:07 20:52 20:52 WBC 9.4 RBC 3.69 L Hgb 12.9 L Hct 36.8 L MCV 99.7 MCH 35.0 H MCHC 35.1 RDW 13.1 Plt Count 99 L MPV 9.7 Immature Gran % (Auto) 0.9 H Neut % (Auto) 85.9 H Lymph % (Auto) 2.7 L [place] % (Auto) 9.8 H Eos % (Auto) 0.2 Baso % (Auto) 0.5 Lymph # (Auto) 0.25 L [place] # (Auto) 0.9 H Eos # (Auto) 0.0 Baso # (Auto) 0.1 Abs Immat Gran (auto) 0.08 H Absolute Neuts (auto) 8.1 H Absolute Nucleated RBC 0.0 Nucleated RBC % 0.0 % Immature Plt Fraction 2.7 ESR Sodium 123 L 126 L Potassium 3.5 Chloride 98 Carbon Dioxide 24 Anion Gap 4 L BUN 14 D Creatinine 0.60 L Estim Creat Clear Calc 133 Estimated GFR > 60 Glucose 106 Calcium 7.7 L C-Reactive Protein Vancomycin Trough 08/20/20 08/20/20 08/20/20 06:51 06:51 06:51 WBC RBC Hgb Hct MCV MCH MCHC RDW Plt Count MPV Immature Gran % (Auto) Neut % (Auto) Lymph % (Auto) [place] % (Auto) Eos % (Auto) Baso % (Auto) Lymph # (Auto) [place] # (Auto) Eos # (Auto) Baso # (Auto) Abs Immat Gran (auto) Absolute Neuts (auto) Absolute Nucleated RBC Nucleated RBC % % Immature Plt Fraction ESR 70 H Sodium Potassium Chloride Carbon Dioxide Anion Gap BUN Creatinine Estim Creat Clear Calc Estimated GFR Glucose Calcium C-Reactive Protein 16.9 H Vancomycin Trough 12.4 Microbiology 08/19/20 18:54 Toe Left Second Gram Stain - Final 08/18/20 23:28 Foot Left Wound Culture - Preliminary 08/18/20 09:38 Blood Blood Culture - Preliminary 08/18/20 10:01 Blood Blood Culture - Preliminary Post-procedural complaints: none Patient Feedback: Patient satisfied with anesthetic care.
--- NOTE | 2020-08-20 18:32 | PM.IMPN ---
Progress Note: A&P Assessment and Plan (1) Necrotizing fasciitis of ankle and foot: Code(s): M72.6 - Necrotizing fasciitis Status: Acute Assessment and Plan: S/p sharp debridement. Appreciate ortho note Cefazolin and Vanc Local care Follow Orhto recs (2) Abscess of foot including toes: Qualifiers: Laterality: left Qualified Code(s): L02.612 - Cutaneous abscess of left foot Code(s): L02.619 - Cutaneous abscess of unspecified foot Status: Acute (3) Neuropathic ulcer of foot: Qualifiers: Laterality: left Non-pressure ulcer stage: with necrosis of muscle Qualified Code(s): L97.523 - Non-pressure chronic ulcer of other part of left foot with necrosis of muscle Code(s): L97.509 - Non-pressure chronic ulcer of other part of unspecified foot with unspecified severity Status: Acute (4) Alcohol abuse: Code(s): F10.10 - Alcohol abuse, uncomplicated Status: Acute Assessment and Plan: Patient has been abstinent on/off Denies withdrawal in the past. (5) Left leg cellulitis: Code(s): L03.116 - Cellulitis of left lower limb Status: Acute (6) Atrial fibrillation with controlled ventricular rate: Code(s): I48.91 - Unspecified atrial fibrillation Status: Acute Assessment and Plan: Stable Continue to monitor. (7) Essential hypertension: Code(s): I10 - Essential (primary) hypertension Status: Acute Assessment and Plan: Stable Continue to monitor Continue home meds Subjective Date/time seen: 08/20/20 18:32 Patient states that has no complaints, feels fine. Review of Systems Review of Systems: Narrative: No new issues Constitutional: Comments: no fevers, no chills. Cardiovascular: Comments: no sob, no chest pain. Respiratory: Comments: no cough, no sputum production. Gastrointestinal: Comments: no n/v/abdominal pain. Musculoskeletal: Comments: L foot wound Exam Narrative: Exam Narrative: Patient is s/p sharp debridement of the L foot wound Const: General: comfortable, alert and awake Nutritional Appearance: thin Orientation/consciousness: patient oriented x3 HENMT: Head: normocephalic Face and sinus: normal facial exam Eyes: General: appearance normal, both eyes and all related structures Pupils: Equal, round and reactive pupils present EOM: EOMs intact bilaterally Neck: Neck: no lymphadenopathy, supple and no JVD Resp: Effort & Inspection: able to speak in complete sentences Auscultation: clear to auscultation bilaterally Cardio: Rate: regular rate Rhythm: regular rhythm GI: GI Palp: Yes Soft to palpation and Yes No hepatosplenomegaly present Skin: Wounds: wounds noted (L foot.) Neuro: General: patient oriented x3 and CN's II-XI intact bilaterally Cranial nerves: Yes CN's II-XII intact bilaterally and Yes Equal, round and reactive pupils present Cognition (Neuro): normal cognition Motor exam (neuro): 5/5 motor strength present throughout Extrem: General: pedal edema on the left 3+ Objective Data Vital Signs Vital Signs: Vital Signs - 24 hr 08/19/20 19:18 08/19/20 19:30 08/19/20 19:45 Temperature 99.6 F Pulse Rate 67 66 89 Respiratory Rate 10 L 18 17 Blood Pressure 90/49 L 95/56 L 111/44 L Pulse Oximetry 100 100 99 08/19/20 20:00 08/19/20 20:15 08/19/20 20:31 Temperature Pulse Rate 92 92 90 Respiratory Rate 20 20 19 Blood Pressure 114/66 109/65 113/62 Pulse Oximetry 99 98 99 08/19/20 20:36 08/19/20 20:51 08/19/20 20:55 Temperature 97.4 F L 97.6 F Pulse Rate 83 81 81 Respiratory Rate 20 20 20 Blood Pressure 117/56 L 113/57 L Pulse Oximetry 99 99 99 08/19/20 21:21 08/19/20 22:00 08/19/20 22:21 Temperature 97.3 F L 97.2 F L Pulse Rate 92 80 82 Respiratory Rate 20 20 Blood Pressure 105/58 L 107/60 Pulse Oximetry 99 99 08/19/20 23:19 08/19/20 23:25 08/20/20 00:00 Temperature 96.8 F L 96.8 F L Pulse Rate 74 74
[2020-08-21] VITALS (8 sets, daily range): BP systolic 97–114; BP diastolic 53–73; PULSE 61–80; RESP 16–20; TEMP 35.8–36.9; O2SAT 95–99
[2020-08-21 05:09] LABS: Osmolality, Urine 450 mOsm/kg (50-1200)
[2020-08-21] MEDS: ceFAZolin 2 GM/D5W 50 ML 2 GM/50 ML BAG IVPB ×3 (06:56→21:59)
[2020-08-21] MEDS: SPIRONOLACTONE 50 MG TABLET 100 MG PO (08:14)
[2020-08-21] MEDS: METOPROLOL SUCCINATE EXT REL 50 MG TABCR PO (08:14)
[2020-08-21] MEDS: LACTULOSE 20 GM/30 ML UDC 3.33333 GM PO (08:14)
[2020-08-21] MEDS: THIAMINE HCL 100 MG TABLET 200 MG PO (08:14)
[2020-08-21] MEDS: PANTOPRAZOLE 40 MG TABLET PO ×2 (08:14→17:21)
[2020-08-21] MEDS: THIAMINE HCL 50 MG TABLET PO (08:15)
[2020-08-21] MEDS: DOCUSATE SODIUM 100 MG CAPSULE PO ×2 (08:15→20:13)
--- NOTE | 2020-08-21 09:49 | PM.PNORT ---
Progress Note: A&P Assessment and Plan (1) Necrotizing fasciitis of ankle and foot: Code(s): M72.6 - Necrotizing fasciitis Status: Acute Assessment and Plan: POD #2 Debridement left foot Dressing changes BID with Dakins. Some early toe necrosis noted. Cxs: MRSA, continue IV antibiotics May move to med floor from Ortho view. will assess in a.m. at time of dressing change for definitive treatment and need for further surgery. Subjective Subjective Date/Time Seen: 08/21/20 09:50 Patient up in chair. Appears comfortable. Denies pain left foot. Exam Const: General: comfortable and no acute distress Nutritional Appearance: well nourished Orientation/consciousness: patient oriented x3 Limitations: no limitations HENMT: Head: normocephalic and atraumatic Ears: external ears normal Face and sinus: face symmetric Mouth: Yes moist mucous membranes Eyes: General: appearance normal, both eyes and all related structures Eyelids: eyelids normal Conjunctivae: conjunctivae normal Sclera: sclerae normal Neck: Neck: supple and no JVD Resp: Effort & Inspection: normal respiratory effort Cardio: Jugular venous distension: no JVD Rate: regular rate Rhythm: regular rhythm GI: Inspection: non-distended GI Palp: Yes Soft to palpation and No Tenderness to palpation present (GI) Neuro: General: gait normal Cognition (Neuro): normal cognition Speech: normal speech Extrem: Left lower extremity: lower leg Details: erythema, tenderness and pitting edema Details: 2+, ankle (erythema ) Details: tenderness, swelling Details: diffusely, normal ROM and warmth and foot Details: tenderness (2nd/3rd Ray ), abnormal ROM of toe (2nd/3rd Ray ) Details: pain with active ROM Location: of the 2nd digit and of the 3rd digit, warmth, edema, ecchymosis, vascular exam (dopplered pedal pulse ) and motor-sensory exam (neuropathy ) two point discrimination abnormal and light-touch abnormal; abnormal capillary refill Other: Left foot dressing in place. Decreased capillary refill 2nd and 3rd toe. Areas of early necrosis dorsum of the toes. Minimal sensation to touch. Doppler pedal pulses. Unable to palpate pedal pulses. Erythema from forefoot to the midshaft of the proximal tibia-improved. Right foot with decreased sensation consistent with neuropathy. He also has a dried callus on the plantar aspect of the 2nd MTP joint which measures 0.2 x 0.2 x 0.0 cm. Psych: Mental Status: mental status grossly normal Affect: normal affect Objective Data Vital Signs Vital Signs: Vital Signs - 24 hr 08/20/20 11:58 08/20/20 16:00 08/20/20 20:00 Temperature 96.9 F L 96.5 F L 97.2 F L Pulse Rate 73 74 68 Respiratory Rate 20 18 20 Blood Pressure 97/61 L 103/67 97/61 L Pulse Oximetry 98 100 99 08/20/20 23:48 08/21/20 00:00 08/21/20 04:00 Temperature 96.9 F L 97.5 F L Pulse Rate 63 63 70 Respiratory Rate 20 20 20 Blood Pressure 99/60 L 97/60 L Pulse Oximetry 99 99 99 08/21/20 08:00 08/21/20 08:14 08/21/20 08:18 Temperature 96.5 F L Pulse Rate 61 61 Respiratory Rate 18 Blood Pressure 98/56 L Pulse Oximetry 98 98 Intake/Output Intake/Output: Intake & Output 08/18/20 08/19/20 08/20/20 08/21/20 23:59 23:59 23:59 23:59 Intake Total 2500 3400 2350 550 Output Total 785 227 4577 1060 Balance 1800 2800 75 510 Meds/Results Medications: Active Medications Generic Name Dose Route Start Last Admin Trade Name Freq PRN Reason Stop Dose Admin Acetaminophen 650 mg 08/18/20 22:37 Acetaminophen 325 Mg Tablet PO Q6H PRN Mild Pain (1-3) or Fever Hydrocodone Bitart/Acetaminophen 1 tab 08/18/20 22:37 08/19/20 06:16 Hydrocodone/Acetaminophen (*Crx) 5-325 Mg Tablet PO 1 tab Q6H PRN Administration Pain Rated 4-6 Diazepam 5 mg 08/19/20 20:36 Diazepam (*Crx) 5 Mg Tablet PO Q8H PRN Muscle Spasm Docusate Sodium 100 mg 08/19/20 21:00 08/21/20 08:15 Docusate Sodium 100 M
--- NOTE | 2020-08-21 09:54 | PC.NURSE ---
This patient, Rhett Garner, was transferred to [facility] on 08/21/20 at 0954. Personal belongings sent with patient. Report given to Sherrie CANO. Appropriate documentation sent with patient.
--- NOTE | 2020-08-21 10:46 | PC.NURSE ---
This patient, Rhett Garner, was received from [[facility]] on 08/21/20 at 1000. Patient/family oriented to unit policies and routines
[2020-08-21] MEDS: MORPHINE SULFATE (*CRX) 2 MG/ML INJ IV PUSH ×3 (11:29→23:16)
[2020-08-21] MEDS: SOD HYPOCHLORITE 1/4 STRENGTH 473 ML 1 APPLIC TOPICAL ×2 (11:30→23:17)
--- NOTE | 2020-08-21 16:25 | PM.IMPN ---
Progress Note: A&P Assessment and Plan (1) Necrotizing fasciitis of ankle and foot: Code(s): M72.6 - Necrotizing fasciitis Status: Acute Assessment and Plan: S/p sharp debridement Local care Ortho following. (2) Abscess of foot including toes: Qualifiers: Laterality: left Qualified Code(s): L02.612 - Cutaneous abscess of left foot Code(s): L02.619 - Cutaneous abscess of unspecified foot Status: Acute Assessment and Plan: S/p I&D (3) Neuropathic ulcer of foot: Qualifiers: Laterality: left Non-pressure ulcer stage: with necrosis of muscle Qualified Code(s): L97.523 - Non-pressure chronic ulcer of other part of left foot with necrosis of muscle Code(s): L97.509 - Non-pressure chronic ulcer of other part of unspecified foot with unspecified severity Status: Acute Assessment and Plan: Local care. (4) Alcohol abuse: Code(s): F10.10 - Alcohol abuse, uncomplicated Status: Acute Assessment and Plan: CIWA as needed No signs of withdrawal. (5) Left leg cellulitis: Code(s): L03.116 - Cellulitis of left lower limb Status: Acute Assessment and Plan: Continue antibiotics. (6) Dehydration: Code(s): E86.0 - Dehydration Status: Acute Assessment and Plan: Resolved Tolerating po (7) Atrial fibrillation with controlled ventricular rate: Code(s): I48.91 - Unspecified atrial fibrillation Status: Acute Assessment and Plan: Stable Continue to monitor (8) Essential hypertension: Code(s): I10 - Essential (primary) hypertension Status: Acute Assessment and Plan: Stable Continue to monitor Subjective Date/time seen: 08/21/20 16:25 I feel well. Review of Systems Review of Systems: Narrative: No new issues overnight. Eyes: Comments: no fevers. Cardiovascular: Comments: no chest pain. Respiratory: Comments: no sob. Gastrointestinal: Comments: no n/v/abdominal pain. Musculoskeletal: Comments: L foot wound pain. Integumentary/Breasts: Comments: L foot wound. Neurologic: Comments: No sensory motor deficit. Exam Narrative: Exam Narrative: Lying in bed. Const: General: comfortable, no acute distress, alert, awake and Physically active Nutritional Appearance: thin Orientation/consciousness: patient oriented x3 HENMT: Head: normal to inspection and normocephalic Face and sinus: normal facial exam Neck: Neck: no lymphadenopathy, supple and no JVD Resp: Auscultation: clear to auscultation bilaterally Cardio: Rate: regular rate Rhythm: regular rhythm GI: GI Palp: Yes Soft to palpation and Yes No hepatosplenomegaly present Skin: Wounds: wounds noted (L foot dorsum wound s/p sharp debridement. Dressing in place.) Neuro: General: patient oriented x3 and CN's II-XI intact bilaterally Cranial nerves: Yes CN's II-XII intact bilaterally and Yes Equal, round and reactive pupils present Cognition (Neuro): normal cognition Speech: normal speech Motor exam (neuro): 5/5 motor strength present throughout Extrem: General: pedal edema on the left Objective Data Vital Signs Vital Signs: Vital Signs - 24 hr 08/20/20 20:00 08/20/20 23:48 08/21/20 00:00 Temperature 97.2 F L 96.9 F L Pulse Rate 68 63 63 Respiratory Rate 20 20 20 Blood Pressure 97/61 L 99/60 L Pulse Oximetry 99 99 99 08/21/20 04:00 08/21/20 08:00 08/21/20 08:14 Temperature 97.5 F L 96.5 F L Pulse Rate 70 61 61 Respiratory Rate 20 18 Blood Pressure 97/60 L 98/56 L Pulse Oximetry 99 98 08/21/20 08:18 Temperature Pulse Rate Respiratory Rate Blood Pressure Pulse Oximetry 98 Intake/Output Intake/Output: Intake & Output 08/18/20 08/19/20 08/20/20 08/21/20 23:59 23:59 23:59 23:59 Intake Total 2500 3400 2350 550 Output Total 575 608 7478 1060 Balance 1800 2800 -75 -510 Meds/Results Medications: Active Medications Generic Name Dose Rou
[2020-08-22] MEDS: ceFAZolin 2 GM/D5W 50 ML 2 GM/50 ML BAG IVPB (05:25)
[2020-08-22 06:00] VITALS: BP 92/50; PULSE 68; RESP 16; TEMP 36.6; O2SAT 94
[2020-08-22 06:27] LABS: Estimated CRCL calculation 133 ml/min; Estimated Glomerular Filt Rate > 60
--- NOTE | 2020-08-22 08:05 | PCOTNOTE ---
Awaiting orthopedic visit this A.M. to determine potential treatment course/surgery. Will complete OT treatment when appropriate.
[2020-08-22] MEDS: DOCUSATE SODIUM 100 MG CAPSULE PO ×2 (08:46→20:24)
[2020-08-22] MEDS: LACTULOSE 20 GM/30 ML UDC 3.33333 GM PO (08:46)
[2020-08-22 08:47] VITALS: PULSE 68
[2020-08-22] MEDS: METOPROLOL SUCCINATE EXT REL 50 MG TABCR PO (08:47)
[2020-08-22] MEDS: THIAMINE HCL 100 MG TABLET 200 MG PO (08:48)
[2020-08-22] MEDS: SPIRONOLACTONE 50 MG TABLET 100 MG PO (08:48)
[2020-08-22] MEDS: THIAMINE HCL 50 MG TABLET PO (08:48)
[2020-08-22] MEDS: PANTOPRAZOLE 40 MG TABLET PO ×2 (08:48→17:21)
[2020-08-22] MEDS: SOD HYPOCHLORITE 1/4 STRENGTH 473 ML 1 APPLIC TOPICAL (08:49)
[2020-08-22] MEDS: MORPHINE SULFATE (*CRX) 2 MG/ML INJ IV PUSH ×3 (08:54→20:29)
--- NOTE | 2020-08-22 11:23 | PM.PNORT ---
Progress Note: A&P Assessment and Plan (1) Necrotizing fasciitis of ankle and foot: Code(s): M72.6 - Necrotizing fasciitis Status: Acute Assessment and Plan: POD #3 debridement left foot Dressing changes BID with Dakins. Some early toe necrosis noted- Unchanged from yesterday. Cxs: MRSA, continue IV antibiotics, will require long-term antibiotic coverage dressing change with wound care team. Plan to start wound VAC dressing to improve granulation and control drainage. Will need further debridement and most likely grafting once stable from an infection standpoint. Continue to monitor toes for viability. Subjective Subjective Date/Time Seen: 08/22/20 11:23 Patient awake and alert. No new complaints. Left foot with minimal pain at rest. Pain with dressing changes but otherwise comfortable. Exam Const: General: comfortable and no acute distress Nutritional Appearance: well nourished Orientation/consciousness: patient oriented x3 Limitations: no limitations HENMT: Head: normocephalic and atraumatic Ears: external ears normal Face and sinus: face symmetric Mouth: Yes moist mucous membranes Eyes: General: appearance normal, both eyes and all related structures Eyelids: eyelids normal Conjunctivae: conjunctivae normal Sclera: sclerae normal Neck: Neck: supple and no JVD Resp: Effort & Inspection: normal respiratory effort Cardio: Jugular venous distension: no JVD Rate: regular rate Rhythm: regular rhythm GI: Inspection: non-distended GI Palp: Yes Soft to palpation and No Tenderness to palpation present (GI) Neuro: General: gait normal Cognition (Neuro): normal cognition Speech: normal speech Extrem: Left lower extremity: lower leg Details: erythema, tenderness and pitting edema Details: 2+, ankle (erythema ) Details: tenderness, swelling Details: diffusely, normal ROM and warmth and foot Details: tenderness (2nd/3rd Ray ), abnormal ROM of toe (2nd/3rd Ray ) Details: pain with active ROM Location: of the 2nd digit and of the 3rd digit, warmth, edema, ecchymosis, vascular exam (dopplered pedal pulse ) and motor-sensory exam (neuropathy ) two point discrimination abnormal and light-touch abnormal; abnormal capillary refill Other: Left foot dressing Changed. No new expansion of infection or purulence noted. Localized necrosis on the dorsum of the 2nd and 3rd toe proximal phalanx unchanged from yesterday. Good capillary refill in the toes. Minimal sensation to touch. Doppler pedal pulses. Unable to palpate pedal pulses. Erythema from forefoot to the midshaft of the proximal tibia-improved. Right foot with decreased sensation consistent with neuropathy. He also has a dried callus on the plantar aspect of the 2nd MTP joint which measures 0.2 x 0.2 x 0.0 cm. Psych: Mental Status: mental status grossly normal Affect: normal affect Objective Data Vital Signs Vital Signs: Vital Signs - 24 hr 08/21/20 14:00 08/21/20 20:00 08/21/20 22:00 Temperature 98.5 F 97.8 F Pulse Rate 80 80 70 Respiratory Rate 20 20 16 Blood Pressure 100/73 114/53 L Pulse Oximetry 98 98 95 08/22/20 06:00 08/22/20 08:47 Temperature 97.8 F Pulse Rate 68 68 Respiratory Rate 16 Blood Pressure 92/50 L Pulse Oximetry 94 Intake/Output Intake/Output: Intake & Output 08/19/20 08/20/20 08/21/20 08/22/20 23:59 23:59 23:59 23:59 Intake Total 3400 2350 1520 1740 Output Total 600 2425 1610 2700 Balance 2800 -75 -90 -960 Meds/Results Medications: Active Medications Generic Name Dose Route Start Last Admin Trade Name Freq PRN Reason Stop Dose Admin Acetaminophen 650 mg 08/18/20 22:37 Acetaminophen 325 Mg Tablet PO Q6H PRN Mild Pain (1-3) or Fever Hydrocodone Bitart/Acetaminophen 1 tab 08/18/20 22:37 08/19/20 06:16 Hydrocodone/Acetaminophen (*Crx) 5-325 Mg Tablet PO 1 tab Q6H PRN Administration Pain Rated 4-6 Diazepam 5 mg 08/19/20 20:36 Diazepam (*Crx) 5 Mg Tab
--- NOTE | 2020-08-22 11:50 | PCNFU ---
Nutrition Follow-Up Complete: Increased kcal/protein needs related to increased demands for healing as evidenced by left foot wound. Goal: Patient to consume 75% of meals/supplements or greater. Progressing towards goal. We will continue current goal. Pt current nutrition is Heart Healthy. Last recorded weight is 91.2 kg, same since admit. Bowel Motility:+BM reported 08/21 Labs Reviewed:Cr 0.6 Meds Noted:Vancomycin,Thiamine,[place], Lactulose, Protonix, Additional Notes: Nutrition follow up. Patient is eating 75-100% of a heart healthy diet. Diet supplements: Ensure compact BID providing an a additional 220 kcals and 9 gms protein. Agree with diet orders. POD #3 debridement left foot, possible more debridement in the future per MD notes. Monitoring: weight,labs, oral intake every 5 days.
[2020-08-22 14:00] VITALS: BP 100/56; PULSE 73; RESP 16; TEMP 36.4; O2SAT 99
--- NOTE | 2020-08-22 14:02 | WPDINFPN2 ---
Progress Note: A&P Assessment and Plan (1) Cellulitis of foot, left: Code(s): L03.116 - Cellulitis of left lower limb Status: Acute Assessment and Plan: 1. Cellulitis/abscess of L foot, POD # 3, drainage. 2. MRSA bacteremia with infection. L foot source. REC Vanc #5, through 09/15/20. PICC. He lives alone, but feels confident that he can manage 1-2 x per day IV infusions. He has someone close by that he can call on if immediate help required.. Ok discharge planning on that basis. Stop Ancef. Subjective Date/time seen: 08/22/20 14:02 Interval history: no diarrhea, no pain in foot Exam Narrative: Exam Narrative: afebrile Const: General: no acute distress Resp: Effort & Inspection: normal respiratory effort Auscultation: clear to auscultation bilaterally Cardio: Rate: regular rate Rhythm: regular rhythm Heart sounds: no murmurs GI: Inspection: non-distended GI Palp: Yes Soft to palpation and No Tenderness to palpation present (GI) Skin: General skin exam: normal color and no rashes or lesions noted Extrem: Other: foot dressed no proximal erythema Objective Data Vital Signs Vital Signs: Vital Signs - 24 hr 08/21/20 20:00 08/21/20 22:00 08/22/20 06:00 Temperature 36.6 C 36.6 C Pulse Rate 80 70 68 Respiratory Rate 20 16 16 Blood Pressure 114/53 L 92/50 L Pulse Oximetry 98 95 94 08/22/20 08:47 Temperature Pulse Rate 68 Respiratory Rate Blood Pressure Pulse Oximetry Intake/Output Intake/Output: Intake & Output 08/19/20 08/20/20 08/21/20 08/22/20 23:59 23:59 23:59 23:59 Intake Total 3400 2350 1520 1740 Output Total 600 2425 1610 2700 Balance 5065 -08 -90 -780 Meds/Results Medications: Active Medications Generic Name Dose Route Start Last Admin Trade Name Freq PRN Reason Stop Dose Admin Acetaminophen 650 mg 08/18/20 22:37 Acetaminophen 325 Mg Tablet PO Q6H PRN Mild Pain (1-3) or Fever Hydrocodone Bitart/Acetaminophen 1 tab 08/18/20 22:37 08/19/20 06:16 Hydrocodone/Acetaminophen (*Crx) 5-325 Mg Tablet PO 1 tab Q6H PRN Administration Pain Rated 4-6 Diazepam 5 mg 08/19/20 20:36 Diazepam (*Crx) 5 Mg Tablet PO Q8H PRN Muscle Spasm Docusate Sodium 100 mg 08/19/20 21:00 08/22/20 08:46 Docusate Sodium 100 Mg Capsule PO 100 mg Q12HR PAT Administration Vancomycin HCl 1,500 mg in 500 mls @ 333.333 mls/hr 08/19/20 08:00 08/22/20 09:34 Vancomycin 1,500 Mg/D5w 500 Ml IVPB Infused Q12H PAT Infusion Lactulose 3.16744 gm 08/19/20 09:00 08/22/20 08:46 Lactulose 20 Gm/30 Ml Udc PO 3.94541 gm QAM PAT Administration Magnesium Hydroxide 30 ml 08/19/20 20:36 Magnesium Hydroxide Susp 30 Ml Udc PO BID PRN Constipation Metoprolol Succinate 50 mg 08/20/20 09:00 08/22/20 08:47 Metoprolol Succinate Ext Rel 50 Mg Tabcr PO 50 mg DAILY [facility] Administration Morphine Sulfate 2 mg 08/18/20 22:37 08/22/20 08:54 Morphine Sulfate (*Crx) 2 Mg/Ml Inj IV PUSH 2 mg Q4H PRN Administration Pain Rated 7-10 Ondansetron HCl 4 mg 08/19/20 20:36 Ondansetron Inj 4 Mg/2 Ml Vial IV PUSH Q4H PRN Nausea And Vomiting Pantoprazole Sodium 40 mg 08/19/20 09:00 08/22/20 08:48 Pantoprazole 40 Mg Tablet PO 09/18/20 09:01 40 mg BID PAT Administration Sodium Hypochlorite 1 applic 08/20/20 09:00 08/22/20 08:49 Sod Hypochlorite 1/4 Strength 473 Ml TOPICAL 1 applic Q12HR PAT Administration Spironolactone 100 mg 08/20/20 09:00 08/22/20 08:48 Spironolactone 50 Mg Tablet PO 100 mg DAILY PAT Administration Thiamine HCl 200 mg 08/19/20 09:00 08/22/20 08:48 Thiamine Hcl 100 Mg Tablet PO 200 mg QAM PAT Administration Thiamine HCl 50 mg 08/19/20 09:00 08/22/20 08:48 Thiamine Hcl 50 Mg Tablet PO 50 mg QAM PAT Administration Radiology Results: ITS Impressions Foot X-Ray 08/18/20 10:25 IMPRESSION: 1. Pes planus. 2. Mild po
--- NOTE | 2020-08-22 14:50 | PM.IMPN ---
Progress Note: A&P Assessment and Plan (1) Necrotizing fasciitis of ankle and foot: Code(s): M72.6 - Necrotizing fasciitis Status: Acute Assessment and Plan: S/p sharp debridement Ortho following. (2) Left leg cellulitis: Code(s): L03.116 - Cellulitis of left lower limb Status: Acute Assessment and Plan: On Vancomycin Ancef has been discontinued (3) Wound of left foot: Code(s): S91.302A - Unspecified open wound, left foot, initial encounter Status: Acute Assessment and Plan: Local care Will need wound vac assisted antibiotics Will need PICC line (4) Abscess of foot including toes: Qualifiers: Laterality: left Qualified Code(s): L02.612 - Cutaneous abscess of left foot Code(s): L02.619 - Cutaneous abscess of unspecified foot Status: Acute Assessment and Plan: S/p sharp debridement (5) MRSA bacteremia: Code(s): R78.81 - Bacteremia; B95.62 - Methicillin resistant Staphylococcus aureus infection as the cause of diseases classified elsewhere Status: Acute Assessment and Plan: Will repeat blood cx Likely source is leg wound (6) Neuropathic ulcer of foot: Qualifiers: Laterality: left Non-pressure ulcer stage: with necrosis of muscle Qualified Code(s): L97.523 - Non-pressure chronic ulcer of other part of left foot with necrosis of muscle Code(s): L97.509 - Non-pressure chronic ulcer of other part of unspecified foot with unspecified severity Status: Acute Assessment and Plan: S/p sharp debridement (7) Essential hypertension: Code(s): I10 - Essential (primary) hypertension Status: Acute Assessment and Plan: Stable. (8) Alcohol abuse: Code(s): F10.10 - Alcohol abuse, uncomplicated Status: Acute Assessment and Plan: Follow up in the outpatient setting. (9) Atrial fibrillation with controlled ventricular rate: Code(s): I48.91 - Unspecified atrial fibrillation Status: Acute Assessment and Plan: Stable (10) EtOH dependence: Code(s): F10.20 - Alcohol dependence, uncomplicated Status: Acute Assessment and Plan: CIWA as needed Subjective Date/time seen: 08/22/20 14:50 I'm fine Review of Systems Review of Systems: Narrative: S/p L foot wound debridement. Constitutional: Comments: no fevers, no chills. Cardiovascular: Comments: no chest pain. Respiratory: Comments: no sob, no cough. Gastrointestinal: Comments: no n/v/abdominal pain. Musculoskeletal: Comments: L foot wound. Integumentary/Breasts: Comments: L foot cellulitis Neurologic: Comments: no focal sensory motor deficit. Exam Narrative: Exam Narrative: Lying in bed Const: General: no acute distress, alert, awake, Physically active and other (Chronically ill looking.) Nutritional Appearance: thin Orientation/consciousness: patient oriented x3 HENMT: Head: normal to inspection and normocephalic Face and sinus: normal facial exam Eyes: General: appearance normal, both eyes and all related structures Pupils: Equal, round and reactive pupils present EOM: EOMs intact bilaterally Neck: Neck: no lymphadenopathy, supple and no JVD Resp: Auscultation: clear to auscultation bilaterally Cardio: Jugular venous distension: no JVD Rate: regular rate Rhythm: regular rhythm GI: GI Palp: Yes Soft to palpation and Yes No hepatosplenomegaly present Skin: Rashes: no rashes Wounds: wounds noted (L foot wound) Neuro: General: patient oriented x3 Cranial nerves: Yes CN's II-XII intact bilaterally and Yes Equal, round and reactive pupils present Cognition (Neuro): normal cognition Speech: normal speech Gait exam (Neuro): Normal gait present Motor exam (neuro): 5/5 motor strength present throughout Extrem: General: other (LLE swelling.) Objective Data Vital Signs Vital Signs: Vital Signs - 24 hr 08/21/20 20:00 08/21/20 2
[2020-08-22 22:00] VITALS: BP 93/50; PULSE 75; RESP 18; TEMP 36.6; O2SAT 95
[2020-08-23 06:00] VITALS: BP 100/56; PULSE 72; RESP 18; TEMP 37; O2SAT 97
[2020-08-23 06:12] LABS: Basophils Absolute Auto 0.1 K/mm3 (0.0-0.1); Basophils Percent Auto 0.7 % (0.2-1.2); Eosinophils Absolute Auto 0.1 K/mm3 (0-0.3); Eosinophils Percent Auto 1.7 % (0-4.4); Hematocrit 33.2 % (42.0-52.0); Hemoglobin 11.4 g/dL (14.0-18.0); Immature Granulocyte Absolute 0.35 K/mm3 (0.00-0.031); Immature Granulocyte Percent A 4.9 % (0-0.5); Lymphocytes Absolute Auto 0.81 K/mm3 (0.9-3.2); Lymphocytes Percent Auto 11.3 % (18.3-44.2); Mean Corpuscular HGB Conc 34.3 g/dl (32-36); Mean Corpuscular Hemoglobin 34.9 pg (26-34); Mean Corpuscular Volume 101.5 fl (80-100); Mean Platelet Volume 9.4 fl (7.4-10.4); Monocytes Absolute Auto 0.8 K/mm3 (0.1-0.6); Monocytes Percent Auto 10.5 % (2.6-8.5); Neutrophils Absolute Auto 5.1 K/mm3 (1.3-6.7); Neutrophils Percent Auto 70.9 % (45.5-73.1); Platelet Count Result 90 k/mm3 (150-375); Red Blood Count 3.27 M/mm3 (4.6-6.20); Red Cell Distribution Width 13.1 % (11.5-14.5); White Blood Count 7.2 K/mm3 (4.5-10.0)
[2020-08-23 06:33] LABS: Anion Gap 1 mmol/L (8-16); Blood Urea Nitrogen 8 mg/dL (9-20); CRP 6.1 mg/dL (<1.0); Calcium 7.8 mg/dL (8.4-10.2); Carbon Dioxide 31 mmol/L (22-30); Chloride 96 mmol/L (98-107); Estimated CRCL calculation 156 ml/min; Estimated Glomerular Filt Rate > 60; Glucose 93 mg/dL (75-110); Potassium 3.7 mmol/L (3.4-5.0); Sodium 128 mmol/L (137-145)
[2020-08-23] MEDS: LACTULOSE 20 GM/30 ML UDC 3.33333 GM PO (08:13)
[2020-08-23] MEDS: SPIRONOLACTONE 50 MG TABLET 100 MG PO (08:14)
[2020-08-23 08:15] VITALS: PULSE 76
[2020-08-23] MEDS: METOPROLOL SUCCINATE EXT REL 50 MG TABCR PO (08:15)
[2020-08-23] MEDS: PANTOPRAZOLE 40 MG TABLET PO ×2 (08:15→17:19)
[2020-08-23] MEDS: THIAMINE HCL 100 MG TABLET 200 MG PO (08:15)
[2020-08-23] MEDS: THIAMINE HCL 50 MG TABLET PO (08:15)
[2020-08-23] MEDS: DOCUSATE SODIUM 100 MG CAPSULE PO ×2 (08:15→20:08)
[2020-08-23] MEDS: HYDROcodone/acetaminophen (*CRX) 5-325 MG TABLET 1 TAB PO ×2 (08:18→17:19)
[2020-08-23 10:00] LABS: Erythrocyte Sedimentation Rate 107 mm/hr (0-20)
--- NOTE | 2020-08-23 10:18 | PM.PNORT ---
Progress Note: A&P Assessment and Plan (1) Necrotizing fasciitis of ankle and foot: Code(s): M72.6 - Necrotizing fasciitis Status: Acute Assessment and Plan: POD #4 debridement left foot Wound VAC applied yesterday. Some moisture on the plantar aspect, wound VAC functioning well. Wound nurses consulted for further evaluation and need for possible early wound VAC change. Wound cultures with MRSA, continue IV antibiotics at discharge per ID. Will require PICC line, defer to hospitalist team. Continue wound VAC in the interim. Will need further surgical intervention with debridement and possible graft placement on pending control of infection. Risks of surgery including but not limited to neurovascular damage, wound complications, blood clot, pulmonary embolus, stroke, myocardial infarction, anesthetic risks up to and including were reviewed. Continued pain and possible dysfunction were explained. No guarantees were offered. The patient understands and wishes to proceed. Plan: Debridement and possible graft application of left foot ulcer and potential reapplication of wound graft by Dr. Negron. Subjective Subjective Date/Time Seen: 08/23/20 0945 Patient awake and alert. No new complaints. Wound VAC functioning well. Review of Systems Constitutional: Constitutional: Reports no additional constitutional complaints, Denies excessive sweating, Denies fever(s), Reports poor appetite and Denies weight gain Eyes: Eyes: Reports no additional eye complaints and Denies change in vision ENT: Reports system reviewed and no additional complaints, except as documented and Reports Normal hearing present Cardiovascular: Cardiovascular: Denies chest pain, Denies diaphoresis, Denies leg ulcers and Denies dyspnea on exertion Respiratory: Respiratory: Reports no additional respiratory complaints, Denies cough and Denies dyspnea on exertion Gastrointestinal: Gastrointestinal: Reports no additional gastrointestinal complaints, Denies abdominal pain, Denies constipation, Denies nausea and Denies vomiting Genitourinary: Genitourinary: Reports no additional male genitourinary complaints, Denies hematuria and Denies urinary frequency Musculoskeletal: Musculoskeletal: Reports no additional musculoskeletal complaints and Reports as per HPI Integumentary/Breasts: Skin/Breast: Reports as per HPI Neurologic: Reports Normal hearing present Psychiatric: Psychiatric: Reports no additional psychiatric complaints Endocrine: Endocrine: Reports no additional endocrine complaints, Denies change in body appearance, Denies excessive sweating, Denies polyphagia, Denies polydipsia and Denies polyuria Exam Const: General: comfortable and no acute distress Nutritional Appearance: well nourished Orientation/consciousness: patient oriented x3 Limitations: no limitations HENMT: Head: normocephalic and atraumatic Ears: external ears normal Face and sinus: face symmetric Mouth: Yes moist mucous membranes Eyes: General: appearance normal, both eyes and all related structures Eyelids: eyelids normal Conjunctivae: conjunctivae normal Sclera: sclerae normal Neck: Neck: supple and no JVD Resp: Effort & Inspection: normal respiratory effort Cardio: Jugular venous distension: no JVD Rate: regular rate Rhythm: regular rhythm GI: Inspection: non-distended GI Palp: Yes Soft to palpation and No Tenderness to palpation present (GI) Neuro: General: gait normal Cognition (Neuro): normal cognition Speech: normal speech Extrem: Left lower extremity: lower leg Details: erythema, tenderness and pitting edema Details: 2+, ankle (erythema ) Details: tenderness, swelling Details: diffusely, normal ROM and warmth and foot Details: tenderness (2nd/3rd Ray ), abnormal ROM of toe (2nd/3rd Ray ) Details: pain with active ROM Location: of the 2nd digit and of the 3rd digit, warmth, edema, ecchymosis, vascular exam (dopplered pedal pulse ) and
--- NOTE | 2020-08-23 12:00 | WPDINFPN2 ---
Progress Note: A&P Assessment and Plan (1) Cellulitis of foot, left: Code(s): L03.116 - Cellulitis of left lower limb Status: Acute Assessment and Plan: 1. Cellulitis/abscess of L foot, POD # 4, drainage. 2. MRSA bacteremia with infection. L foot source. REC Vanc #6, through 09/15/20. Await PICC. Subjective Date/time seen: 08/23/20 12:00 Interval history: no new complaints Exam Narrative: Exam Narrative: afebrile Skin: Other: erythema L saxena. Vac in place L foot. Looks comfortable Objective Data Vital Signs Vital Signs: Vital Signs - 24 hr 08/22/20 14:00 08/22/20 22:00 08/23/20 06:00 Temperature 36.4 C L 36.6 C 37.0 C Pulse Rate 73 75 72 Respiratory Rate 16 18 18 Blood Pressure 100/56 L 93/50 L 100/56 L Pulse Oximetry 99 95 97 08/23/20 08:15 Temperature Pulse Rate 76 Respiratory Rate Blood Pressure Pulse Oximetry Intake/Output Intake/Output: Intake & Output 08/20/20 08/21/20 08/22/20 08/23/20 23:59 23:59 23:59 23:59 Intake Total 2350 1520 3580 1100 Output Total 2425 1610 3200 1350 Balance -75 -90 380 -250 Meds/Results Medications: Active Medications Generic Name Dose Route Start Last Admin Trade Name Freq PRN Reason Stop Dose Admin Acetaminophen 650 mg 08/18/20 22:37 Acetaminophen 325 Mg Tablet PO Q6H PRN Mild Pain (1-3) or Fever Hydrocodone Bitart/Acetaminophen 1 tab 08/18/20 22:37 08/23/20 08:18 Hydrocodone/Acetaminophen (*Crx) 5-325 Mg Tablet PO 1 tab Q6H PRN Administration Pain Rated 4-6 Diazepam 5 mg 08/19/20 20:36 Diazepam (*Crx) 5 Mg Tablet PO Q8H PRN Muscle Spasm Docusate Sodium 100 mg 08/19/20 21:00 08/23/20 08:15 Docusate Sodium 100 Mg Capsule PO 100 mg Q12HR PAT Administration Vancomycin HCl 1,500 mg in 500 mls @ 333.333 mls/hr 08/19/20 08:00 08/23/20 09:47 Vancomycin 1,500 Mg/D5w 500 Ml IVPB Infused Q12H PAT Infusion Lactulose 3.29225 gm 08/19/20 09:00 08/23/20 08:13 Lactulose 20 Gm/30 Ml Udc PO 3.25066 gm QAM PAT Administration Magnesium Hydroxide 30 ml 08/19/20 20:36 Magnesium Hydroxide Susp 30 Ml Udc PO BID PRN Constipation Metoprolol Succinate 50 mg 08/20/20 09:00 08/23/20 08:15 Metoprolol Succinate Ext Rel 50 Mg Tabcr PO 50 mg DAILY PAT Administration Morphine Sulfate 2 mg 08/18/20 22:37 08/22/20 20:29 Morphine Sulfate (*Crx) 2 Mg/Ml Inj IV PUSH 2 mg Q4H PRN Administration Pain Rated 7-10 Ondansetron HCl 4 mg 08/19/20 20:36 Ondansetron Inj 4 Mg/2 Ml Vial IV PUSH Q4H PRN Nausea And Vomiting Pantoprazole Sodium 40 mg 08/19/20 09:00 08/23/20 08:15 Pantoprazole 40 Mg Tablet PO 09/18/20 09:01 40 mg BID PAT Administration Spironolactone 100 mg 08/20/20 09:00 08/23/20 08:14 Spironolactone 50 Mg Tablet PO 100 mg DAILY PAT Administration Thiamine HCl 200 mg 08/19/20 09:00 08/23/20 08:15 Thiamine Hcl 100 Mg Tablet PO 200 mg QAM PAT Administration Thiamine HCl 50 mg 08/19/20 09:00 08/23/20 08:15 Thiamine Hcl 50 Mg Tablet PO 50 mg QAM PAT Administration Radiology Results: ITS Impressions Foot X-Ray 08/18/20 10:25 IMPRESSION: 1. Pes planus. 2. Mild polyarticular osteoarthritis. Lower Extremity CT 08/19/20 08:12 IMPRESSION: 1. No evidence of osteomyelitis. 2. Mild polyarticular osteoarthritis. Foot MRI 08/19/20 12:46 IMPRESSION: 1. 12 x 10 x 9 mm peripherally enhancing subcutaneous abscess over the dorsum of the foot. 2. Region of nonenhancing soft tissue surrounding the base of the second and third proximal phalanges and extending into the soft tissues plantar to the distal second-fourth metatarsals which is concerning for necrotizing fasciitis. Dr. Campa discussed these findings with Regine Deluna at 12:45 PM. 3. Mild to moderate polyarticular osteoarthritis in the forefoot. No evident osteomyelitis. Labs Labs: Laborato
[2020-08-23] MEDS: MORPHINE SULFATE (*CRX) 2 MG/ML INJ IV PUSH (13:07)
[2020-08-23 14:00] VITALS: BP 96/56; PULSE 74; RESP 16; TEMP 36.2; O2SAT 98
--- NOTE | 2020-08-23 14:26 | PM.IMPN ---
Progress Note: A&P Assessment and Plan (1) Necrotizing fasciitis of ankle and foot: Code(s): M72.6 - Necrotizing fasciitis Status: Acute Assessment and Plan: S/p I and D Ortho following. (2) Left leg cellulitis: Code(s): L03.116 - Cellulitis of left lower limb Status: Acute Assessment and Plan: On Vancomycin (3) Wound of left foot: Code(s): S91.302A - Unspecified open wound, left foot, initial encounter Status: Acute Assessment and Plan: alf antibiotics Will need PICC line, hopeful dc stella Vac therapy in place (4) Abscess of foot including toes: Qualifiers: Laterality: left Qualified Code(s): L02.612 - Cutaneous abscess of left foot Code(s): L02.619 - Cutaneous abscess of unspecified foot Status: Acute Assessment and Plan: S/p Incision and drainage (5) MRSA bacteremia: Code(s): R78.81 - Bacteremia; B95.62 - Methicillin resistant Staphylococcus aureus infection as the cause of diseases classified elsewhere Status: Acute Assessment and Plan: In foot wound (6) Neuropathic ulcer of foot: Qualifiers: Laterality: left Non-pressure ulcer stage: with necrosis of muscle Qualified Code(s): L97.523 - Non-pressure chronic ulcer of other part of left foot with necrosis of muscle Code(s): L97.509 - Non-pressure chronic ulcer of other part of unspecified foot with unspecified severity Status: Acute Assessment and Plan: S/p incision and drainage (7) Essential hypertension: Code(s): I10 - Essential (primary) hypertension Status: Acute Assessment and Plan: Stable. (8) Alcohol abuse: Code(s): F10.10 - Alcohol abuse, uncomplicated Status: Acute Assessment and Plan: Follow up in the outpatient setting. (9) Atrial fibrillation with controlled ventricular rate: Code(s): I48.91 - Unspecified atrial fibrillation Status: Acute Assessment and Plan: Stable (10) EtOH dependence: Code(s): F10.20 - Alcohol dependence, uncomplicated Status: Acute Assessment and Plan: CIWA as needed Subjective Date/time seen: 08/23/20 14:26 Interval history: 60-year-old male with history of essential hypertension, paroxysmal atrial fibrillation, and alcoholic cirrhosis (patient longer drinking) who presented to the emergency department earlier today from his primary care provider's office for evaluation of a left foot wound. Pt has cellulitis of lower left limb, wound of left foot and MRSA bacteremia. Seen BY ID and wound team. Pt has vac therapy, started on iv vancomycin, picc line placement soon. Review of Systems Review of Systems: All systems reviewed & are unremarkable except as noted in HPI and below Exam Const: General: Physically active and other (Chronically ill looking.) Nutritional Appearance: thin Orientation/consciousness: patient oriented x3 Resp: Effort & Inspection: able to speak in complete sentences Auscultation: clear to auscultation bilaterally Cardio: Jugular venous distension: no JVD Rate: regular rate Rhythm: regular rhythm Skin: Rashes: no rashes Wounds: wounds noted (L foot wound) Neuro: General: patient oriented x3 and CN's II-XI intact bilaterally Cranial nerves: Yes CN's II-XII intact bilaterally and Yes Equal, round and reactive pupils present Cognition (Neuro): normal cognition Speech: normal speech Gait exam (Neuro): Normal gait present Motor exam (neuro): 5/5 motor strength present throughout Extrem: General: pedal edema on the left 3+ and other (LLE swelling.) Objective Data Vital Signs Vital Signs: Vital Signs - 24 hr 08/22/20 22:00 08/23/20 06:00 08/23/20 08:15 Temperature 36.6 C 37.0 C Pulse Rate 75 72 76 Respiratory Rate 18 18 Blood Pressure 93/50 L 100/56 L Pulse Oximetry 95 97 Intake/Output Intake/Output: Intake & Output 08/20/20 08/21/20
[2020-08-23 17:39] VITALS: O2SAT 96
[2020-08-23 20:00] VITALS: PULSE 74; RESP 16; O2SAT 96
[2020-08-23 21:24] VITALS: BP 101/60; PULSE 85; RESP 18; TEMP 36.2; O2SAT 96
[2020-08-24] MEDS: MORPHINE SULFATE (*CRX) 2 MG/ML INJ IV PUSH ×4 (05:31→20:42)
[2020-08-24 06:00] VITALS: BP 98/52; PULSE 65; RESP 18; TEMP 36.4; O2SAT 94
[2020-08-24 06:24] LABS: Hemoglobin 10.9 g/dL (14.0-18.0); Immature Platelet Fraction Pct 2.3 % (0.9-11.2); Mean Corpuscular HGB Conc 35.2 g/dl (32-36); Mean Corpuscular Hemoglobin 35.4 pg (26-34); Mean Corpuscular Volume 100.6 fl (80-100); Mean Platelet Volume 9.6 fl (7.4-10.4); Platelet Count Result 110 k/mm3 (150-375); Red Blood Count 3.08 M/mm3 (4.6-6.20); Red Cell Distribution Width 13.2 % (11.5-14.5); White Blood Count 5.6 K/mm3 (4.5-10.0)
[2020-08-24 06:47] LABS: Anion Gap 1 mmol/L (8-16); Blood Urea Nitrogen 7 mg/dL (9-20); Calcium 7.5 mg/dL (8.4-10.2); Carbon Dioxide 33 mmol/L (22-30); Chloride 94 mmol/L (98-107); Estimated CRCL calculation 156 ml/min; Estimated Glomerular Filt Rate > 60; Glucose 125 mg/dL (75-110); Potassium 3.7 mmol/L (3.4-5.0); Sodium 128 mmol/L (137-145)
--- NOTE | 2020-08-24 08:08 | PCOTNOTE ---
Attempted to see patient this am, however patient declined therapy at this time. Pt stated he already completed ADLs and was not ready to get up this am.
[2020-08-24] MEDS: LACTULOSE 20 GM/30 ML UDC 3.33333 GM PO (09:39)
[2020-08-24] MEDS: DOCUSATE SODIUM 100 MG CAPSULE PO ×2 (09:41→20:43)
[2020-08-24] MEDS: PANTOPRAZOLE 40 MG TABLET PO ×2 (09:41→16:27)
[2020-08-24] MEDS: THIAMINE HCL 50 MG TABLET PO (09:41)
[2020-08-24] MEDS: SPIRONOLACTONE 50 MG TABLET 100 MG PO (09:41)
[2020-08-24] MEDS: THIAMINE HCL 100 MG TABLET 200 MG PO (09:41)
[2020-08-24 09:42] VITALS: PULSE 75
[2020-08-24] MEDS: METOPROLOL SUCCINATE EXT REL 50 MG TABCR PO (09:42)
[2020-08-24 09:43] VITALS: BP 93/53; PULSE 75; RESP 16; O2SAT 93
[2020-08-24] MEDS: LIDOCAINE HCL 1% PF INJ 5 ML VIAL INFILTRATE (11:45)
--- NOTE | 2020-08-24 12:18 | PM.PNORT ---
Progress Note: A&P Assessment and Plan (1) Necrotizing fasciitis of ankle and foot: Code(s): M72.6 - Necrotizing fasciitis Status: Acute Assessment and Plan: POD #5 debridement left foot Wound VAC in place. Wound cultures with MRSA, continue IV antibiotics at discharge per ID. Will require PICC line, defer to hospitalist team. Continue wound VAC in the interim. Will need further surgical intervention with debridement and possible graft placement Tomorrow. Risks of surgery including but not limited to neurovascular damage, wound complications, blood clot, pulmonary embolus, stroke, myocardial infarction, anesthetic risks up to and including were reviewed. Continued pain and possible dysfunction were explained. No guarantees were offered. The patient understands and wishes to proceed. Plan: Debridement and possible graft application of left foot ulcer and potential reapplication of wound graft by Dr. Negron. Discussed nonoperative and operative treatment options with the patient. Risks and benefits of each as well as alternatives were reviewed. All of the patient's questions were answered. The risks of surgery reviewed including but not limited to: Neurovascular damage, wound complication, infection, blood clot, pulmonary embolus, stroke, myocardial infarction, and anesthetic risks up to and including . Continued pain and possible dysfunction were explained. Specific risks of the procedure including later recurrence of deformity. No guarantees were offered. If hardware used, discussed risk of failure/ breakage and possible need for removal. If complications occur, the patient understands the need for further treatment, possible further surgery. Patient verbalizes understanding and wishes to proceed. Subjective Subjective Date/Time Seen: 08/24/20 12:18 Patient awake and alert. No new complaints. Resting comfortably. Exam Const: General: comfortable and no acute distress Nutritional Appearance: well nourished Orientation/consciousness: patient oriented x3 Limitations: no limitations HENMT: Head: normocephalic and atraumatic Ears: external ears normal Face and sinus: face symmetric Mouth: Yes moist mucous membranes Eyes: General: appearance normal, both eyes and all related structures Eyelids: eyelids normal Conjunctivae: conjunctivae normal Sclera: sclerae normal Neck: Neck: supple and no JVD Resp: Effort & Inspection: normal respiratory effort Cardio: Jugular venous distension: no JVD Rate: regular rate Rhythm: regular rhythm GI: Inspection: non-distended GI Palp: Yes Soft to palpation and No Tenderness to palpation present (GI) Neuro: General: gait normal Cognition (Neuro): normal cognition Speech: normal speech Extrem: Left lower extremity: lower leg Details: erythema, tenderness and pitting edema Details: 2+, ankle (erythema ) Details: tenderness, swelling Details: diffusely, normal ROM and warmth and foot Details: tenderness (2nd/3rd Ray ), abnormal ROM of toe (2nd/3rd Ray ) Details: pain with active ROM Location: of the 2nd digit and of the 3rd digit, warmth, edema, ecchymosis, vascular exam (dopplered pedal pulse ) and motor-sensory exam (neuropathy ) two point discrimination abnormal and light-touch abnormal; abnormal capillary refill Other: Wound VAC dressing in place left foot. Swelling improved. Still with redness throughout the foot and ankle. No warmth. Good capillary refill in the toes. Minimal sensation to touch. Doppler pedal pulses. Unable to palpate pedal pulses. Erythema from forefoot to the midshaft of the proximal tibia-mildly improved. Right foot with decreased sensation consistent with neuropathy. Dried callus on the plantar aspect of the 2nd MTP joint with some drainage. Psych: Mental Status: mental status grossly normal Affect: normal affect Thought content: Yes Normal thought content present Objective Data Vital Signs Vital Signs: Vital Signs
--- NOTE | 2020-08-24 12:29 | WPDINFPN2 ---
Progress Note: A&P Assessment and Plan (1) Cellulitis of foot, left: Code(s): L03.116 - Cellulitis of left lower limb Status: Acute Assessment and Plan: 1. Cellulitis/abscess of L foot, POD # 5, drainage. Further OR tomorrow 2. MRSA bacteremia with infection. L foot source. REC Vanc #7, through 09/15/20. Paper orders completed. Subjective Date/time seen: 08/24/20 12:29 Interval history: no new complaints Exam Narrative: Exam Narrative: afebrile Const: General: no acute distress Skin: General skin exam: normal color and no rashes or lesions noted Other: new PICC LUE Objective Data Vital Signs Vital Signs: Vital Signs - 24 hr 08/23/20 14:00 08/23/20 17:39 08/23/20 20:00 Temperature 36.2 C L Pulse Rate 74 74 Respiratory Rate 16 16 Blood Pressure 96/56 L Pulse Oximetry 98 96 96 08/23/20 21:24 08/24/20 06:00 08/24/20 09:42 Temperature 36.2 C L 36.4 C L Pulse Rate 85 65 75 Respiratory Rate 18 18 Blood Pressure 101/60 98/52 L Pulse Oximetry 96 94 08/24/20 09:43 Temperature Pulse Rate 75 Respiratory Rate 16 Blood Pressure 93/53 L Pulse Oximetry 93 Intake/Output Intake/Output: Intake & Output 08/21/20 08/22/20 08/23/20 08/24/20 23:59 23:59 23:59 23:59 Intake Total 1520 3580 4040 850 Output Total 1610 3200 2950 2850 Balance -90 380 1090 -2000 Meds/Results Medications: Active Medications Generic Name Dose Route Start Last Admin Trade Name Freq PRN Reason Stop Dose Admin Acetaminophen 650 mg 08/18/20 22:37 Acetaminophen 325 Mg Tablet PO Q6H PRN Mild Pain (1-3) or Fever Hydrocodone Bitart/Acetaminophen 1 tab 08/18/20 22:37 08/23/20 17:19 Hydrocodone/Acetaminophen (*Crx) 5-325 Mg Tablet PO 1 tab Q6H PRN Administration Pain Rated 4-6 Diazepam 5 mg 08/19/20 20:36 Diazepam (*Crx) 5 Mg Tablet PO Q8H PRN Muscle Spasm Docusate Sodium 100 mg 08/19/20 21:00 08/24/20 09:41 Docusate Sodium 100 Mg Capsule PO 100 mg Q12HR PAT Administration Vancomycin HCl 1,500 mg in 500 mls @ 333.333 mls/hr 08/19/20 08:00 08/24/20 09:37 Vancomycin 1,500 Mg/D5w 500 Ml IVPB 333 mls/hr Q12H PAT Administration Lactulose 3.94105 gm 08/19/20 09:00 08/24/20 09:39 Lactulose 20 Gm/30 Ml Udc PO 3.92609 gm QAM PAT Administration Magnesium Hydroxide 30 ml 08/19/20 20:36 Magnesium Hydroxide Susp 30 Ml Udc PO BID PRN Constipation Metoprolol Succinate 50 mg 08/20/20 09:00 08/24/20 09:42 Metoprolol Succinate Ext Rel 50 Mg Tabcr PO 50 mg DAILY PAT Administration Morphine Sulfate 2 mg 08/18/20 22:37 08/24/20 10:01 Morphine Sulfate (*Crx) 2 Mg/Ml Inj IV PUSH 2 mg Q4H PRN Administration Pain Rated 7-10 Ondansetron HCl 4 mg 08/19/20 20:36 Ondansetron Inj 4 Mg/2 Ml Vial IV PUSH Q4H PRN Nausea And Vomiting Pantoprazole Sodium 40 mg 08/19/20 09:00 08/24/20 09:41 Pantoprazole 40 Mg Tablet PO 09/18/20 09:01 40 mg BID PAT Administration Spironolactone 100 mg 08/20/20 09:00 08/24/20 09:41 Spironolactone 50 Mg Tablet PO 100 mg DAILY [facility] Administration Thiamine HCl 200 mg 08/19/20 09:00 08/24/20 09:41 Thiamine Hcl 100 Mg Tablet PO 200 mg QAM [facility] Administration Thiamine HCl 50 mg 08/19/20 09:00 08/24/20 09:41 Thiamine Hcl 50 Mg Tablet PO 50 mg QAM [facility] Administration Radiology Results: ITS Impressions Foot X-Ray 08/18/20 10:25 IMPRESSION: 1. Pes planus. 2. Mild polyarticular osteoarthritis. Lower Extremity CT 08/19/20 08:12 IMPRESSION: 1. No evidence of osteomyelitis. 2. Mild polyarticular osteoarthritis. Foot MRI 08/19/20 12:46 IMPRESSION: 1. 12 x 10 x 9 mm peripherally enhancing subcutaneous abscess over the dorsum of the foot. 2. Region of nonenhancing soft tissue surrounding the base of the second and third proximal phalanges and extending into the soft tissues plantar to the distal second-four
--- NOTE | 2020-08-24 13:47 | WPDANESEPPF ---
Anes - Initial Pre Proc Eval Procedure: Operation Date: 08/19/20 18:00 Proposed Procedures p Incision and Debridement Left Foot Ulcer, - Blair Negron MD s Possible Third Ray Amputation - Blair Negron MD Operation Date: 08/25/20 12:30 Proposed Procedures p Left Foot Debridement,Possible Closure,Possible Wound Graft - Blair Negron MD Date/Time: 08/24/20 13:47 Surgeon: Glen Galicia MD Pre Op Diagnosis: left foot cellulitis Patient Data Age: 60 Gender: M Height: 1.88 m Weight: 91.2 kg Last Vital Signs Temp 36.4 C L 08/24/20 06:00 Pulse 75 08/24/20 09:43 Resp 16 08/24/20 09:43 BP 93/53 L 08/24/20 09:43 Pulse Ox 93 08/24/20 09:43 Allergies Allergy/AdvReac Type Severity Reaction Status Date / Time No Known Allergies Allergy Unknown Verified 08/18/20 14:53 Home Medications Medication Instructions Recorded Confirmed Type furosemide 40 mg tablet 40 mg PO DAILY tablet 08/19/19 08/18/20 History lactulose 10 gram/15 mL oral 5 ml PO DAILY ml 08/19/19 08/18/20 History solution omeprazole 20 mg capsule,delayed 40 mg PO BID cap 08/19/19 08/18/20 History release spironolactone 100 mg tablet 100 mg PO DAILY 08/19/19 08/18/20 History thiamine HCl (vitamin B1) 250 mg 250 mg PO DAILY 08/19/19 08/18/20 History tablet ciprofloxacin HCl 500 mg tablet 500 mg PO DAILY tablet 08/20/19 08/18/20 History metoprolol succinate 50 mg 50 mg PO DAILY #30 tablet 05/23/20 08/18/20 Rx tablet,extended release 24 hr Laboratory Tests 08/24/20 08/24/20 05:50 05:50 WBC 5.6 K/mm3 K/mm3 (4.5-10.0) RBC 3.08 M/mm3 L M/mm3 (4.6-6.20) Hgb 10.9 g/dL L g/dL (14.0-18.0) Hct 31.0 % L % (42.0-52.0) MCV 100.6 fl H fl (80-100) MCH 35.4 pg H pg (26-34) MCHC 35.2 g/dl g/dl (32-36) RDW 13.2 % % (11.5-14.5) Plt Count 110 k/mm3 L k/mm3 (150-375) MPV 9.6 fl fl (7.4-10.4) % Immature Plt Fraction 2.3 % % (0.9-11.2) Sodium 128 mmol/L L mmol/L (137-145) Potassium 3.7 mmol/L mmol/L (3.4-5.0) Chloride 94 mmol/L L mmol/L (98-107) Carbon Dioxide 33 mmol/L H mmol/L (22-30) Anion Gap 1 mmol/L L mmol/L (8-16) BUN 7 mg/dL L mg/dL (9-20) Creatinine 0.50 mg/dL L mg/dL (0.7-1.3) Estim Creat Clear Calc 156 ml/min ml/min Estimated GFR > 60 (59 - ) Glucose 125 mg/dL H mg/dL (75-110) Calcium 7.5 mg/dL L mg/dL (8.4-10.2) Patient hx anesthesia problems: none Family hx anesthesia problems: none [facility] Past Medical History Medical History (Updated 08/22/20 @ 15:16 by Glen Galicia MD) Abscess of foot including toes Alcoholic cirrhosis of liver He has abstained from alcohol for at least 2 years as of July 2020. Essential hypertension Gastroesophageal reflux disease Hyponatremia Necrotizing fasciitis of ankle and foot Paroxysmal atrial fibrillation Surgical History Surgical History History of surgery on arm (~2012) ORIF right humerus fracture. History of surgery on wrist History of ventral hernia repair (~11/2013) Subsequent abdominal wall exploration with drainage of a seroma at the same site in 03/2014. Family History Family History Mother Hypertension Family history of diabetes mellitus in first degree relative Diabetes mellitus Father Family history of pancreatic cancer Social History Social History Social History: The patient lives alone in [place]. Retired from [employer]. He has a longstanding history of alcohol abuse and reports on August 19, 2020 his most recent drink was 2 weeks ago. He also endorses marijuana use intermittently in a social setting. He designates his daughter Shawna as his surrogate nella
--- NOTE | 2020-08-24 13:48 | PM.IMPN ---
Progress Note: A&P Assessment and Plan (1) Necrotizing fasciitis of ankle and foot: Code(s): M72.6 - Necrotizing fasciitis Status: Acute Assessment and Plan: S/p I and D Ortho following. (2) Left leg cellulitis: Code(s): L03.116 - Cellulitis of left lower limb Status: Acute Assessment and Plan: On Vancomycin (3) Wound of left foot: Code(s): S91.302A - Unspecified open wound, left foot, initial encounter Status: Acute Assessment and Plan: long term care social worker antibiotics Will need PICC line, hopeful dc soon After debridement and possible graft placement (4) Abscess of foot including toes: Qualifiers: Laterality: left Qualified Code(s): L02.612 - Cutaneous abscess of left foot Code(s): L02.619 - Cutaneous abscess of unspecified foot Status: Acute Assessment and Plan: S/p Incision and drainage needs further debridement and possible graft placement (5) MRSA bacteremia: Code(s): R78.81 - Bacteremia; B95.62 - Methicillin resistant Staphylococcus aureus infection as the cause of diseases classified elsewhere Status: Acute Assessment and Plan: In foot wound (6) Neuropathic ulcer of foot: Qualifiers: Laterality: left Non-pressure ulcer stage: with necrosis of muscle Qualified Code(s): L97.523 - Non-pressure chronic ulcer of other part of left foot with necrosis of muscle Code(s): L97.509 - Non-pressure chronic ulcer of other part of unspecified foot with unspecified severity Status: Acute Assessment and Plan: S/p incision and drainage needs further debridement and possible graft placement (7) Essential hypertension: Code(s): I10 - Essential (primary) hypertension Status: Acute Assessment and Plan: Stable. (8) Alcohol abuse: Code(s): F10.10 - Alcohol abuse, uncomplicated Status: Acute Assessment and Plan: Follow up in the outpatient setting. (9) Atrial fibrillation with controlled ventricular rate: Code(s): I48.91 - Unspecified atrial fibrillation Status: Acute Assessment and Plan: Stable (10) EtOH dependence: Code(s): F10.20 - Alcohol dependence, uncomplicated Status: Acute Assessment and Plan: CIWA as needed Subjective Date/time seen: 08/24/20 13:49 Interval history: 60-year-old male with history of essential hypertension, paroxysmal atrial fibrillation, and alcoholic cirrhosis (patient longer drinking) who presented to the emergency department earlier today from his primary care provider's office for evaluation of a left foot wound. Pt has cellulitis of lower left limb, wound of left foot and MRSA bacteremia. Seen BY ID and wound team. Pt has vac therapy, started on iv vancomycin, picc line placement soon. Pt to have debridement and possible graft placement under orthopedics. Review of Systems Review of Systems: All systems reviewed & are unremarkable except as noted in HPI and below Exam Const: General: Physically active and other (Chronically ill looking.) Nutritional Appearance: thin Orientation/consciousness: patient oriented x3 Eyes: Pupils: Equal, round and reactive pupils present Resp: Effort & Inspection: able to speak in complete sentences Auscultation: clear to auscultation bilaterally Cardio: Jugular venous distension: no JVD Rate: regular rate Rhythm: regular rhythm Skin: Rashes: no rashes Wounds: wounds noted (L foot wound) Neuro: General: patient oriented x3 and CN's II-XI intact bilaterally Cranial nerves: Yes CN's II-XII intact bilaterally and Yes Equal, round and reactive pupils present Cognition (Neuro): normal cognition Speech: normal speech Gait exam (Neuro): Normal gait present Motor exam (neuro): 5/5 motor strength present throughout Extrem: General: pedal edema on the left 3+ and other (LLE swelling.) Objective Data Vital Signs Vital Signs: Vital Signs
[2020-08-24 14:00] VITALS: BP 102/51; PULSE 67; RESP 16; TEMP 36.7; O2SAT 99
[2020-08-24] MEDS: CENTRAL LINE FLUSH 10 ML IV PUSH ×2 (16:29→20:44)
[2020-08-24 22:00] VITALS: BP 102/51; PULSE 73; RESP 20; TEMP 36.3; O2SAT 97
[2020-08-25] VITALS (13 sets, daily range): BP systolic 91–129; BP diastolic 49–71; PULSE 59–77; RESP 14–20; TEMP 36.2–36.9; O2SAT 92–100
[2020-08-25] MEDS: MORPHINE SULFATE (*CRX) 2 MG/ML INJ IV PUSH ×3 (03:39→18:28)
[2020-08-25] MEDS: CENTRAL LINE FLUSH 10 ML IV PUSH ×3 (06:00→20:14)
[2020-08-25 06:21] LABS: Estimated CRCL calculation 133 ml/min; Estimated Glomerular Filt Rate > 60
--- NOTE | 2020-08-25 07:24 | WPDHPUPDATE1 ---
History and Physical Update Update Date/Time: 08/25/20 07:24 History and Physical has been reviewed, including an updated exam of the patient. There are NO changes in the patient's condition. Risks, benefits, and alternatives have been discussed and questions answered. Patient agrees to proceed with procedure.
[2020-08-25] MEDS: METOPROLOL SUCCINATE EXT REL 50 MG TABCR PO (08:30)
--- NOTE | 2020-08-25 10:05 | PC.NURSE ---
To OR per bed, IV antibiotic continues. Report given to - SBAR faxed to OR.
[2020-08-25] MEDS: LACTATED RINGERS 1,000 ML 30 ML IV CONT (11:21)
[2020-08-25] MEDS: BUPIVACAINE HCL 0.5% PF 30 ML VIAL INFILTRATE (12:26)
[2020-08-25] MEDS: VANCOMYCIN HCL 1,000 MG VIAL 1000 MG XX (13:10)
--- NOTE | 2020-08-25 13:26 | PCOTNOTE ---
Pt not seen this date due to having procedure.
--- NOTE | 2020-08-25 13:36 | PM.PROC ---
Procedure Note - Detailed Date of procedure: 08/25/20 Pre-op diagnosis: left foot cellulitis Left foot necrotizing fasciitis, abscess Post-op diagnosis: same Procedure performed: Debridement of left foot, debridement plantar foot abscess, application of graft 16 x 4 cm dorsum, 8 x 0.5 cm plantar Description of procedure: Indications: Patient is a 52-year-old gentleman with peripheral neuropathy and left foot necrotizing fasciitis infection with Staph aureus. Patient underwent initial debridement. He returns now for debridement and re-evaluation with possible closure or wound grafting. What was done: Patient identified in the preoperative holding. Informed consent given. Operative extremity marked. Patient received intravenous antibiotics. Patient brought to the operating room where underwent general anesthetic by anesthesia team. Positioned supine on operating room table. Time-out performed confirming the patient, site of the surgery and the plan. The wound VAC on the left foot was removed. Left foot prepped draped usual sterile surgical fashion using a Betadine prep solution. There is noted to be purulent drainage on the plantar aspect of the foot from the 2nd web space coming out of the plantar ulcer. Fifteen blade knife used to make a longitudinal skin incision from the ulcer proximal in the 2nd webspace. Collection of purulent fluid noted and evacuated. This was thoroughly irrigated. Soft tissue debrided with a rongeur and closed with 2 0 Prolene interrupted suture after application of vancomycin powder. Dorsum of the foot then addressed. Fifteen blade knife used to debride the skin subcutaneous tissue and muscle from the dorsum of the foot and the 2nd and 3rd toe. Devitalized tissue was sharply excised and passed off. The subcutaneous area medial lateral and proximal word debrided with a rongeur, a nonviable tissue excised and passed off. Wound then thoroughly irrigated with antibiotic solution. The final wound measured 16 cm in length by 4 cm in width by 1 cm depth at the intermetatarsal area. The wound was then covered with the Integra bilaminar skin allograft replacement and sutured in place with 3 Monocryl interrupted suture. Sterile dressing applied. The patient was then woken from anesthesia, extubated and taken to the recovery room in stable condition. All sponge, needle, instrument counts were correct at the end of the case. Anesthesia: GLMA Surgeon: Blair Negron MD [employer] Engineer: observation assistant Estimated blood loss (mL): 11 Drains: No Packing: No Pathology: none sent Complications: None Condition: stable Disposition: PACU Findings: Marie-incisional skin necrosis as well as necrosis dorsum of the 2nd and 3rd toe. Plantar aspect abscess in 2nd webspace with purulent drainage.
[2020-08-25] MEDS: fentaNYL CITRATE INJ (*CRX) 100 MCG/2 ML VIAL 25 MCG IV PUSH ×2 (13:52→13:55)
--- NOTE | 2020-08-25 14:10 | PC.NURSE ---
Returned from OR per bed. Report received from RN.
[2020-08-25] MEDS: LACTULOSE 20 GM/30 ML UDC 3.33333 GM PO (14:30)
[2020-08-25] MEDS: SPIRONOLACTONE 50 MG TABLET 100 MG PO (14:30)
[2020-08-25] MEDS: THIAMINE HCL 50 MG TABLET PO (14:31)
[2020-08-25] MEDS: THIAMINE HCL 100 MG TABLET 200 MG PO (14:31)
--- NOTE | 2020-08-25 15:10 | PM.IMPN ---
Progress Note: A&P Assessment and Plan (1) Necrotizing fasciitis of ankle and foot: Code(s): M72.6 - Necrotizing fasciitis Status: Acute Assessment and Plan: S/p I and D Ortho following. (2) Left leg cellulitis: Code(s): L03.116 - Cellulitis of left lower limb Status: Acute Assessment and Plan: On Vancomycin (3) Wound of left foot: Code(s): S91.302A - Unspecified open wound, left foot, initial encounter Status: Acute Assessment and Plan: nursing home antibiotics Will need PICC line, hopeful dc tomorrow Sp debridement and graft placement (4) Abscess of foot including toes: Qualifiers: Laterality: left Qualified Code(s): L02.612 - Cutaneous abscess of left foot Code(s): L02.619 - Cutaneous abscess of unspecified foot Status: Acute Assessment and Plan: S/p Incision and drainage needs further debridement and graft placement (5) MRSA bacteremia: Code(s): R78.81 - Bacteremia; B95.62 - Methicillin resistant Staphylococcus aureus infection as the cause of diseases classified elsewhere Status: Acute Assessment and Plan: In foot wound (6) Neuropathic ulcer of foot: Qualifiers: Laterality: left Non-pressure ulcer stage: with necrosis of muscle Qualified Code(s): L97.523 - Non-pressure chronic ulcer of other part of left foot with necrosis of muscle Code(s): L97.509 - Non-pressure chronic ulcer of other part of unspecified foot with unspecified severity Status: Acute Assessment and Plan: S/p incision and drainage needs further debridement and graft placement (7) Essential hypertension: Code(s): I10 - Essential (primary) hypertension Status: Acute Assessment and Plan: Stable. (8) Alcohol abuse: Code(s): F10.10 - Alcohol abuse, uncomplicated Status: Acute Assessment and Plan: Follow up in the outpatient setting. (9) Atrial fibrillation with controlled ventricular rate: Code(s): I48.91 - Unspecified atrial fibrillation Status: Acute Assessment and Plan: Stable (10) EtOH dependence: Code(s): F10.20 - Alcohol dependence, uncomplicated Status: Acute Assessment and Plan: CIWA as needed Subjective Date/time seen: 08/25/20 15:10 Interval history: 60-year-old male with history of essential hypertension, paroxysmal atrial fibrillation, and alcoholic cirrhosis (patient longer drinking) who presented to the emergency department earlier today from his primary care provider's office for evaluation of a left foot wound. Pt has cellulitis of lower left limb, wound of left foot and MRSA bacteremia. Seen BY ID and wound team. Pt has vac therapy, started on iv vancomycin, PICC inserted. Pt to have debridement and graft placement today. Hopeful Dc tomorrow. Review of Systems Review of Systems: All systems reviewed & are unremarkable except as noted in HPI and below Exam Const: General: Physically active and other (Chronically ill looking.) Nutritional Appearance: thin Orientation/consciousness: patient oriented x3 Eyes: Pupils: Equal, round and reactive pupils present Resp: Effort & Inspection: able to speak in complete sentences Auscultation: clear to auscultation bilaterally Cardio: Jugular venous distension: no JVD Rate: regular rate Rhythm: regular rhythm Skin: Rashes: no rashes Wounds: wounds noted (L foot wound) Neuro: General: patient oriented x3 and CN's II-XI intact bilaterally Cranial nerves: Yes CN's II-XII intact bilaterally and Yes Equal, round and reactive pupils present Cognition (Neuro): normal cognition Speech: normal speech Gait exam (Neuro): Normal gait present Motor exam (neuro): 5/5 motor strength present throughout Extrem: General: pedal edema on the left 3+ and other (LLE swelling.) Objective Data Vital Signs Vital Signs: Vital Signs - 24 hr 08/24/20 22:00 07/30
[2020-08-25] MEDS: PANTOPRAZOLE 40 MG TABLET PO (17:06)
[2020-08-25] MEDS: DOCUSATE SODIUM 100 MG CAPSULE PO (20:06)
[2020-08-26] VITALS: BP 124/97; PULSE 63; RESP 20; TEMP 36.4; O2SAT 94
[2020-08-26 04:00] VITALS: BP 90/51; PULSE 74; RESP 20; TEMP 36.8; O2SAT 94
[2020-08-26] MEDS: CENTRAL LINE FLUSH 10 ML IV PUSH ×2 (05:45→13:00)
[2020-08-26 08:00] VITALS: PULSE 75; RESP 20; O2SAT 94
[2020-08-26] MEDS: LACTULOSE 20 GM/30 ML UDC 3.33333 GM PO (08:28)
[2020-08-26] MEDS: DOCUSATE SODIUM 100 MG CAPSULE PO (08:29)
[2020-08-26 08:30] VITALS: PULSE 75
[2020-08-26] MEDS: METOPROLOL SUCCINATE EXT REL 50 MG TABCR PO (08:30)
[2020-08-26] MEDS: PANTOPRAZOLE 40 MG TABLET PO (08:30)
[2020-08-26] MEDS: SPIRONOLACTONE 50 MG TABLET 100 MG PO (08:30)
[2020-08-26] MEDS: THIAMINE HCL 100 MG TABLET 200 MG PO (08:30)
[2020-08-26] MEDS: THIAMINE HCL 50 MG TABLET PO (08:30)
[2020-08-26] MEDS: MORPHINE SULFATE (*CRX) 2 MG/ML INJ IV PUSH (08:36)
--- NOTE | 2020-08-26 09:18 | WPDANESPN ---
Anes - Prog Note Post-Op Date/Time: 08/26/20 09:18 Cardiovascular status: normal Respiratory status: normal Airway patency: baseline Mental status: baseline Post-Op hydration status: normal Vital Signs: Last Vital Signs Temp 36.8 C 08/26/20 04:00 Pulse 75 08/26/20 08:30 Resp 20 08/26/20 04:00 BP 90/51 L 08/26/20 04:00 Pulse Ox 94 08/26/20 04:00 Pain Score (VAS): 0 I/O: Intake & Output 08/25/20 08/26/20 08/26/20 23:59 07:59 15:59 Intake Total 1040 550 Output Total 200 1100 Balance 840 -550 Laboratory Tests 08/24/20 05:50 08/25/20 05:51 Microbiology 08/19/20 18:54 Toe Left Second Anaerobic Culture - Final 08/19/20 18:54 Toe Left Second Aerobic Culture - Final Methicillin Resis Staph Aureus Post-procedural complaints: none Patient Feedback: Patient satisfied with anesthetic care.
[2020-08-26 09:20] LABS: Basophils Absolute Auto 0.1 K/mm3 (0.0-0.1); Basophils Percent Auto 0.7 % (0.2-1.2); Eosinophils Absolute Auto 0.1 K/mm3 (0-0.3); Eosinophils Percent Auto 0.8 % (0-4.4); Hematocrit 31.6 % (42.0-52.0); Hemoglobin 10.8 g/dL (14.0-18.0); Immature Granulocyte Absolute 0.06 K/mm3 (0.00-0.031); Immature Granulocyte Percent A 0.8 % (0-0.5); Lymphocytes Absolute Auto 0.46 K/mm3 (0.9-3.2); Lymphocytes Percent Auto 6.5 % (18.3-44.2); Mean Corpuscular HGB Conc 34.2 g/dl (32-36); Mean Corpuscular Hemoglobin 34.4 pg (26-34); Mean Corpuscular Volume 100.6 fl (80-100); Monocytes Absolute Auto 0.6 K/mm3 (0.1-0.6); Monocytes Percent Auto 8.6 % (2.6-8.5); Neutrophils Absolute Auto 5.8 K/mm3 (1.3-6.7); Neutrophils Percent Auto 82.6 % (45.5-73.1); Platelet Count Result 96 k/mm3 (150-375); Red Blood Count 3.14 M/mm3 (4.6-6.20); Red Cell Distribution Width 13.3 % (11.5-14.5); White Blood Count 7.1 K/mm3 (4.5-10.0)
[2020-08-26 09:39] LABS: Anion Gap -1 mmol/L (8-16); Blood Urea Nitrogen 7 mg/dL (9-20); CRP 4.4 mg/dL (<1.0); Carbon Dioxide 31 mmol/L (22-30); Chloride 97 mmol/L (98-107); Estimated CRCL calculation 133 ml/min; Estimated Glomerular Filt Rate > 60; Glucose 156 mg/dL (75-110); Potassium 4.3 mmol/L (3.4-5.0); Sodium 127 mmol/L (137-145)
--- NOTE | 2020-08-26 11:12 | PM.PNORT ---
Progress Note: A&P Assessment and Plan (1) Necrotizing fasciitis of ankle and foot: Code(s): M72.6 - Necrotizing fasciitis Status: Acute Assessment and Plan: POD #6 debridement left foot POD #1 Status post 2nd debridement, debridement of abscess and graft placement. Dressing changed. Overall foot and leg appear improved. No new signs of infection or further spread. Erythema improved. Still with noted warmth of the foot and ankle. May be discharged home with dressing in place and postoperative shoe. No dressing changes until seen in wound clinic. Plan for follow-up in outpatient wound clinic August 29. IV antibiotics. Operative findings reviewed with patient. Full discussion of potential complications and failure of treatment necessitating further surgery or amputation. Patient verbalizes understanding. Subjective Subjective Date/Time Seen: 08/26/20 11:12 Patient awake and alert. States left foot feels better. No nausea or vomiting. Exam Const: General: comfortable and no acute distress Nutritional Appearance: well nourished Orientation/consciousness: patient oriented x3 Limitations: no limitations HENMT: Head: normocephalic and atraumatic Ears: external ears normal Face and sinus: face symmetric Mouth: Yes moist mucous membranes Eyes: General: appearance normal, both eyes and all related structures Eyelids: eyelids normal Conjunctivae: conjunctivae normal Sclera: sclerae normal Neck: Neck: supple and no JVD Resp: Effort & Inspection: normal respiratory effort Cardio: Jugular venous distension: no JVD Rate: regular rate Rhythm: regular rhythm GI: Inspection: non-distended GI Palp: Yes Soft to palpation and No Tenderness to palpation present (GI) Neuro: General: gait normal Cognition (Neuro): normal cognition Speech: normal speech Extrem: Left lower extremity: lower leg Details: erythema, tenderness and pitting edema Details: 2+, ankle (erythema ) Details: tenderness, swelling Details: diffusely, normal ROM and warmth and foot Details: tenderness (2nd/3rd Ray ), abnormal ROM of toe (2nd/3rd Ray ) Details: pain with active ROM Location: of the 2nd digit and of the 3rd digit, warmth, edema, ecchymosis, vascular exam (dopplered pedal pulse ) and motor-sensory exam (neuropathy ) two point discrimination abnormal and light-touch abnormal; abnormal capillary refill Other: Dressing left foot changed this morning. Graft on the dorsum of the foot intact. Incision on the plantar aspect clean and dry. No active purulent drainage or wound drainage. Decreased swelling through the foot ankle and leg. Decreased erythema foot ankle and leg. Negative Homans sign. warmth still present. Psych: Mental Status: mental status grossly normal Affect: normal affect Thought content: Yes Normal thought content present Objective Data Vital Signs Vital Signs: Vital Signs - 24 hr 08/25/20 13:16 08/25/20 13:30 08/25/20 13:45 Temperature 97.2 F L Pulse Rate 59 L 65 67 Respiratory Rate 14 14 16 Blood Pressure 129/71 102/62 102/59 L Pulse Oximetry 100 100 99 08/25/20 14:00 08/25/20 14:10 08/25/20 14:25 Temperature 97.6 F 97.6 F Pulse Rate 66 65 65 Respiratory Rate 16 18 18 Blood Pressure 95/66 L 91/56 L 92/54 L Pulse Oximetry 92 95 100 08/25/20 14:55 08/25/20 16:00 08/25/20 20:00 Temperature 97.6 F 98.1 F 98.5 F Pulse Rate 64 66 77 Respiratory Rate 18 16 20 Blood Pressure 98/62 L 96/58 L 91/49 L Pulse Oximetry 98 99 95 08/26/20 00:00 08/26/20 04:00 08/26/20 08:30 Temperature 97.6 F 98.3 F Pulse Rate 63 74 75 Respiratory Rate 20 20 Blood Pressure 124/97 H 90/51 L Pulse Oximetry 94 94 Intake/Output Intake/Output: Intake & Output 08/23/20 08/24/20 08/25/20 08/26/20 23:59 23:59 23:59 23:59 Intake Total 4040 3490 1840 550 Output Total 2950 3650 3100 1100 Balance 1090 -160 -1260 -550 Meds/Results Medications: Active Medications Generic Name Dose Route Start L
[2020-08-26 14:00] VITALS: BP 92/50; PULSE 78; RESP 16; TEMP 36.3; O2SAT 98
--- NOTE | 2020-08-26 14:31 | WPDINFPN2 ---
Progress Note: A&P Assessment and Plan (1) Cellulitis of foot, left: Code(s): L03.116 - Cellulitis of left lower limb Status: Acute Assessment and Plan: 1. Cellulitis/abscess of L foot, POD # 7 /1 2. MRSA bacteremia with infection. L foot source. REC Vanc #9, through 09/15/20. Paper orders completed. Ok dishcharge once all arranged, see me in office Subjective Date/time seen: 08/26/20 14:31 Interval history: no complaints Exam Narrative: Exam Narrative: afebrile Const: General: no acute distress Extrem: Other: L foot dressed, no proximal erythema nor warmth, PICC in place Objective Data Vital Signs Vital Signs: Vital Signs - 24 hr 08/25/20 14:55 08/25/20 16:00 08/25/20 20:00 Temperature 36.4 C 36.7 C 36.9 C Pulse Rate 64 66 77 Respiratory Rate 18 16 20 Blood Pressure 98/62 L 96/58 L 91/49 L Pulse Oximetry 98 99 95 08/26/20 00:00 08/26/20 04:00 08/26/20 08:00 Temperature 36.4 C 36.8 C Pulse Rate 63 74 75 Respiratory Rate 20 20 20 Blood Pressure 124/97 H 90/51 L Pulse Oximetry 94 94 94 08/26/20 08:30 Temperature Pulse Rate 75 Respiratory Rate Blood Pressure Pulse Oximetry Intake/Output Intake/Output: Intake & Output 08/23/20 08/24/20 08/25/20 08/26/20 23:59 23:59 23:59 23:59 Intake Total 4040 3490 1840 790 Output Total 2950 3650 3100 1100 Balance 1090 -160 -1260 -310 Meds/Results Medications: Active Medications Generic Name Dose Route Start Last Admin Trade Name Freq PRN Reason Stop Dose Admin Acetaminophen 650 mg 08/18/20 22:37 Acetaminophen 325 Mg Tablet PO Q6H PRN Mild Pain (1-3) or Fever Hydrocodone Bitart/Acetaminophen 1 tab 08/18/20 22:37 08/23/20 17:19 Hydrocodone/Acetaminophen (*Crx) 5-325 Mg Tablet PO 1 tab Q6H PRN Administration Pain Rated 4-6 Diazepam 5 mg 08/19/20 20:36 Diazepam (*Crx) 5 Mg Tablet PO Q8H PRN Muscle Spasm Docusate Sodium 100 mg 08/19/20 21:00 08/26/20 08:29 Docusate Sodium 100 Mg Capsule PO 100 mg Q12HR PAT Administration Vancomycin HCl 1,500 mg in 500 mls @ 333.333 mls/hr 08/19/20 08:00 08/26/20 08:37 Vancomycin 1,500 Mg/D5w 500 Ml IVPB 333 mls/hr Q12H PAT Administration Lactulose 3.89047 gm 08/19/20 09:00 08/26/20 08:28 Lactulose 20 Gm/30 Ml Udc PO 3.28304 gm QAM PAT Administration Magnesium Hydroxide 30 ml 08/19/20 20:36 Magnesium Hydroxide Susp 30 Ml Udc PO BID PRN Constipation Metoprolol Succinate 50 mg 08/20/20 09:00 08/26/20 08:30 Metoprolol Succinate Ext Rel 50 Mg Tabcr PO 50 mg DAILY PAT Administration Morphine Sulfate 2 mg 08/18/20 22:37 08/26/20 08:36 Morphine Sulfate (*Crx) 2 Mg/Ml Inj IV PUSH 2 mg Q4H PRN Administration Pain Rated 7-10 Ondansetron HCl 4 mg 08/19/20 20:36 Ondansetron Inj 4 Mg/2 Ml Vial IV PUSH Q4H PRN Nausea And Vomiting Pantoprazole Sodium 40 mg 08/19/20 09:00 08/26/20 08:30 Pantoprazole 40 Mg Tablet PO 09/18/20 09:01 40 mg BID PAT Administration Sodium Chloride 10 ml 08/24/20 14:00 08/26/20 13:00 Central Line Flush IV PUSH 10 ml Q8HR PAT Administration Sodium Chloride 10 ml 08/24/20 12:33 Central Line Flush IV PUSH PRN PRN with TPN bag changes Sodium Chloride 20 ml 08/24/20 12:33 Central Line Flush IV PUSH PRN PRN after blood draws Spironolactone 100 mg 08/20/20 09:00 08/26/20 08:30 Spironolactone 50 Mg Tablet PO 100 mg DAILY PAT Administration Thiamine HCl 200 mg 08/19/20 09:00 08/26/20 08:30 Thiamine Hcl 100 Mg Tablet PO 200 mg QAM PAT Administration Thiamine HCl 50 mg 08/19/20 09:00 08/26/20 08:30 Thiamine Hcl 50 Mg Tablet PO 50 mg QAM [facility] Administration Radiology Results: ITS Impressions Foot X-Ray 08/18/20 10:25 IMPRESSION: 1. Pes planus. 2. Mild polyarticular osteoarthritis. Lower Extremity CT 08/19/20 08:12 IMPRESSION: 1. No ev
--- NOTE | 2020-08-26 14:34 | PM.DS ---
DS: Admitting Diagnosis Admitting Diagnosis Admitting Diagnosis: Left foot wound DS: Discharge Diagnosis Discharge Diagnosis (1) Necrotizing fasciitis of ankle and foot: Code(s): M72.6 - Necrotizing fasciitis Status: Acute Assessment and Plan: S/p I and D sp further debridement of left foot, debridement plantar foot abscess, application of graft 16 x 4 cm dorsum, 8 x 0.5 cm plantar Ortho following. Pt to follow in orthopedic clinic and wound clinic (2) Left leg cellulitis: Code(s): L03.116 - Cellulitis of left lower limb Status: Acute Assessment and Plan: On Vancomycin until 09/15/2019 Seen by ID and orthopedics (3) Wound of left foot: Code(s): S91.302A - Unspecified open wound, left foot, initial encounter Status: Acute Assessment and Plan: [facility] antibiotics Pt has PICC line inserted Sp debridement and graft placement (4) Abscess of foot including toes: Qualifiers: Laterality: left Qualified Code(s): L02.612 - Cutaneous abscess of left foot Code(s): L02.619 - Cutaneous abscess of unspecified foot Status: Acute Assessment and Plan: S/p Incision and drainage had further debridement and graft placement (5) MRSA bacteremia: Code(s): R78.81 - Bacteremia; B95.62 - Methicillin resistant Staphylococcus aureus infection as the cause of diseases classified elsewhere Status: Acute Assessment and Plan: In foot wound on vancomycin ferry terminal agent, seen by ID (6) Neuropathic ulcer of foot: Qualifiers: Laterality: left Non-pressure ulcer stage: with necrosis of muscle Qualified Code(s): L97.523 - Non-pressure chronic ulcer of other part of left foot with necrosis of muscle Code(s): L97.509 - Non-pressure chronic ulcer of other part of unspecified foot with unspecified severity Status: Acute Assessment and Plan: S/p incision and drainage, sp further debridement and graft placement (7) Essential hypertension: Code(s): I10 - Essential (primary) hypertension Status: Acute Assessment and Plan: Stable. (8) Alcohol abuse: Code(s): F10.10 - Alcohol abuse, uncomplicated Status: Acute Assessment and Plan: Follow up in the outpatient setting. (9) Atrial fibrillation with controlled ventricular rate: Code(s): I48.91 - Unspecified atrial fibrillation Status: Acute Assessment and Plan: Stable (10) EtOH dependence: Code(s): F10.20 - Alcohol dependence, uncomplicated Status: Resolved Assessment and Plan: CIWA as needed initialy DS: Summary Hospital Course Hospital Course: 60-year-old male with history of essential hypertension, paroxysmal atrial fibrillation, and alcoholic cirrhosis (patient longer drinking) who presented to the emergency department earlier today from his primary care provider's office for evaluation of a left foot wound. Pt has cellulitis of lower left limb, wound of left foot and MRSA bacteremia. Seen BY ID and wound team. Pt started on iv vancomycin, PICC inserted. Pt had further debridement and graft placement yesterday, stable for discharge with follow up with orthopedics and wound clinic. Time Spent with Patient Time attestation: Total time spent providing and/or coordinating discharge services:40 minutes on day of discharge Exam Const: General: Physically active and other (Chronically ill looking.) Nutritional Appearance: thin Orientation/consciousness: patient oriented x3 HENMT: Head: normal to inspection and normocephalic Face and sinus: normal facial exam Eyes: General: appearance normal, both eyes and all related structures Pupils: Equal, round and reactive pupils present EOM: EOMs intact bilaterally Neck: Neck: no lymphadenopathy, supple and no JVD Resp: Effort & Inspection: able to speak in complete sentences Auscultation: clear to auscultation bilaterally Cardio:
== END 2020-08-26 16:00 | disposition home health service (06) | DRG 853 ==
LOC: ANHED 11:28 → ANHIMU 08-19 12:09 → ANH3MEDSUR 08-22 12:13 → ANHIMU 08-29 10:36
PROVIDERS: Nurse Practitioner Family; Orthopaedic Surgery; Physician Assistant; Admitting Provider Internal Medicine; Emergency Provider Emergency Medicine; PCP Internal Medicine; Visit Provider Family Medicine
PROC: 0KBW0ZZ Excision of Left Foot Muscle, Open Approach (ICD-10-PCS; principal; 2020-08-19 18:00)
DX: A41.02 Sepsis due to Methicillin resistant Staphylococcus aureus (principal); M72.6 Necrotizing fasciitis; L02.612 Cutaneous abscess of left foot; L03.116 Cellulitis of left lower limb; R65.20 Severe sepsis without septic shock; L97.523 Non-pressure chronic ulcer of other part of left foot with necrosis of muscle; I10 Essential (primary) hypertension; I48.91 Unspecified atrial fibrillation; F10.20 Alcohol dependence, uncomplicated; K70.30 Alcoholic cirrhosis of liver without ascites; I48.0 Paroxysmal atrial fibrillation; K21.9 Gastro-esophageal reflux disease without esophagitis; E86.0 Dehydration; E80.6 Other disorders of bilirubin metabolism; G62.9 Polyneuropathy, unspecified
CPT/HCPCS: 36415; 36569; 51701; 73630; 73701; 73720; 80048; 80053; 80076; 80202; 81001; 82565; 82570; 82607; 82746; 83605; 83735; 83930; 83935; 84295; 84300; 85025; 85027; 85055; 85610; 85652; 85730; 86140; 87040; 87070; 87075; 87077; 87147; 87186; 87205; 93005; 96361; 96365; 96375; 97110; 97116; 97161; 97166; 97530; 97535; 99285; A9270; A9577; C1751; C9363; J0690; J0743; J2250; J2270; J2405; J2543; J2704; J3010; J3370; J7030; J7040; J7120; Q9967

== ENCOUNTER 2020-08-30 11:34 | Outpatient (NON) | payer BC, SELFPAY ==
[2020-08-30 12:04] LABS: Basophils Absolute Auto 0.1 K/mm3 (0.0-0.1); Basophils Percent Auto 1.2 % (0.2-1.2); Eosinophils Absolute Auto 0.1 K/mm3 (0-0.3); Eosinophils Percent Auto 1.6 % (0-4.4); Hematocrit 32.5 % (42.0-52.0); Hemoglobin 11.1 g/dL (14.0-18.0); Immature Granulocyte Absolute 0.02 K/mm3 (0.00-0.031); Immature Granulocyte Percent A 0.3 % (0-0.5); Lymphocytes Absolute Auto 0.63 K/mm3 (0.9-3.2); Lymphocytes Percent Auto 9.2 % (18.3-44.2); Mean Corpuscular HGB Conc 34.2 g/dl (32-36); Mean Corpuscular Hemoglobin 34.6 pg (26-34); Mean Corpuscular Volume 101.2 fl (80-100); Mean Platelet Volume 8.9 fl (7.4-10.4); Monocytes Absolute Auto 0.8 K/mm3 (0.1-0.6); Monocytes Percent Auto 11.1 % (2.6-8.5); Neutrophils Absolute Auto 5.3 K/mm3 (1.3-6.7); Neutrophils Percent Auto 76.6 % (45.5-73.1); Platelet Count Result 136 k/mm3 (150-375); Red Blood Count 3.21 M/mm3 (4.6-6.20); Red Cell Distribution Width 13.4 % (11.5-14.5); White Blood Count 6.9 K/mm3 (4.5-10.0)
[2020-08-30 12:18] LABS: Anion Gap 3 mmol/L (8-16); Blood Urea Nitrogen 9 mg/dL (9-20); CRP 1.9 mg/dL (<1.0); Calcium 8.3 mg/dL (8.4-10.2); Carbon Dioxide 33 mmol/L (22-30); Chloride 97 mmol/L (98-107); Estimated Glomerular Filt Rate > 60; Glucose 87 mg/dL (75-110); Potassium 3.3 mmol/L (3.4-5.0); Sodium 133 mmol/L (137-145)
[2020-08-30 12:55] LABS: Vancomycin Trough 24.2 ug/mL (10.0-20.0)
== END 2020-08-30 11:35 ==
LOC: HOME HLTH 11:36
PROVIDERS: PCP Internal Medicine; Visit Provider Internal Medicine Infectious Disease
DX: L03.116 Cellulitis of left lower limb (principal); M72.6 Necrotizing fasciitis; S91.302D Unspecified open wound, left foot, subsequent encounter
CPT/HCPCS: 80048; 80202; 85025; 86140

== ENCOUNTER 2020-09-15 09:52 | Outpatient (RCR) | payer BC, SELFPAY ==
[2020-09-01 15:35] LABS: Basophils Absolute Auto 0.1 K/mm3 (0.0-0.1); Basophils Percent Auto 0.8 % (0.2-1.2); Eosinophils Absolute Auto 0.1 K/mm3 (0-0.3); Eosinophils Percent Auto 1.6 % (0-4.4); Hematocrit 27.9 % (42.0-52.0); Hemoglobin 9.4 g/dL (14.0-18.0); Immature Granulocyte Absolute 0.01 K/mm3 (0.00-0.031); Immature Granulocyte Percent A 0.2 % (0-0.5); Lymphocytes Absolute Auto 0.56 K/mm3 (0.9-3.2); Mean Corpuscular HGB Conc 33.7 g/dl (32-36); Mean Corpuscular Hemoglobin 34.1 pg (26-34); Mean Corpuscular Volume 101.1 fl (80-100); Mean Platelet Volume 10.1 fl (7.4-10.4); Monocytes Absolute Auto 0.8 K/mm3 (0.1-0.6); Monocytes Percent Auto 12.4 % (2.6-8.5); Neutrophils Absolute Auto 4.7 K/mm3 (1.3-6.7); Platelet Count Result 114 k/mm3 (150-375); Red Blood Count 2.76 M/mm3 (4.6-6.20); Red Cell Distribution Width 13.6 % (11.5-14.5); White Blood Count 6.2 K/mm3 (4.5-10.0)
[2020-09-01 16:01] LABS: CRP 1.7 mg/dL (<1.0)
[2020-09-01 16:16] LABS: Anion Gap 4 mmol/L (8-16); Blood Urea Nitrogen 11 mg/dL (9-20); Calcium 7.5 mg/dL (8.4-10.2); Carbon Dioxide 27 mmol/L (22-30); Chloride 101 mmol/L (98-107); Estimated Glomerular Filt Rate > 60; Glucose 104 mg/dL (75-110); Potassium 3.4 mmol/L (3.4-5.0); Sodium 132 mmol/L (137-145)
[2020-09-05 10:55] LABS: Hemoglobin 10.7 g/dL (14.0-18.0); Mean Corpuscular HGB Conc 34.5 g/dl (32-36); Mean Corpuscular Hemoglobin 34.7 pg (26-34); Mean Corpuscular Volume 100.6 fl (80-100); Mean Platelet Volume 9.4 fl (7.4-10.4); Platelet Count Result 94 k/mm3 (150-375); Red Blood Count 3.08 M/mm3 (4.6-6.20); Red Cell Distribution Width 13.8 % (11.5-14.5); White Blood Count 3.7 K/mm3 (4.5-10.0)
[2020-09-05 11:21] LABS: Anion Gap 3 mmol/L (8-16); Blood Urea Nitrogen 11 mg/dL (9-20); CRP 1.4 mg/dL (<1.0); Calcium 8.2 mg/dL (8.4-10.2); Carbon Dioxide 30 mmol/L (22-30); Chloride 98 mmol/L (98-107); Estimated Glomerular Filt Rate > 60; Glucose 108 mg/dL (75-110); Potassium 3.4 mmol/L (3.4-5.0); Sodium 131 mmol/L (137-145)
[2020-09-05 11:25] LABS: Vancomycin Trough 18.9 ug/mL (10.0-20.0)
[2020-09-08 11:45] LABS: Hematocrit 31.1 % (42.0-52.0); Hemoglobin 10.6 g/dL (14.0-18.0); Mean Corpuscular HGB Conc 34.1 g/dl (32-36); Mean Corpuscular Hemoglobin 34.5 pg (26-34); Mean Corpuscular Volume 101.3 fl (80-100); Mean Platelet Volume 9.8 fl (7.4-10.4); Platelet Count Result 88 k/mm3 (150-375); Red Blood Count 3.07 M/mm3 (4.6-6.20); White Blood Count 3.8 K/mm3 (4.5-10.0)
[2020-09-08 11:54] LABS: Eosinophils Absolute Manual 0.15 K/mm3 (0.02-0.5); Eosinophils Percent Manual 4 % (0-4); Lymphocytes Absolute Manual 0.38 K/mm3 (1.1-4.5); Monocytes Absolute Manual 0.49 K/mm3 (0.1-0.90); Monocytes Percent Manual 13 % (3-9); Neutrophils Percent Manual 73 % (46-73); Platelet Estimate Decreased (Adequate); Total Cells Counted 100
[2020-09-08 11:55] LABS: Anisocytosis 1+ (NORMAL); Microcytosis 1+ (NORMAL)
[2020-09-08 11:59] LABS: Anion Gap 1 mmol/L (8-16); Blood Urea Nitrogen 12 mg/dL (9-20); CRP 1.5 mg/dL (<1.0); Calcium 8.5 mg/dL (8.4-10.2); Carbon Dioxide 32 mmol/L (22-30); Chloride 101 mmol/L (98-107); Estimated Glomerular Filt Rate > 60; Glucose 98 mg/dL (75-110); Potassium 3.4 mmol/L (3.4-5.0); Sodium 134 mmol/L (137-145)
[2020-09-12 11:58] LABS: Basophils Percent Auto 0.8 % (0.2-1.2); Eosinophils Absolute Auto 0.2 K/mm3 (0-0.3); Eosinophils Percent Auto 3.8 % (0-4.4); Hematocrit 29.5 % (42.0-52.0); Hemoglobin 10.1 g/dL (14.0-18.0); Immature Granulocyte Absolute 0.01 K/mm3 (0.00-0.031); Immature Granulocyte Percent A 0.2 % (0-0.5); Lymphocytes Absolute Auto 0.48 K/mm3 (0.9-3.2); Lymphocytes Percent Auto 9.6 % (18.3-44.2); Mean Corpuscular HGB Conc 34.2 g/dl (32-36); Mean Corpuscular Hemoglobin 34.4 pg (26-34); Mean Corpuscular Volume 100.3 fl (80-100); Mean Platelet Volume 9.5 fl (7.4-10.4); Monocytes Absolute Auto 0.7 K/mm3 (0.1-0.6); Monocytes Percent Auto 14.5 % (2.6-8.5); Neutrophils Absolute Auto 3.5 K/mm3 (1.3-6.7); Neutrophils Percent Auto 71.1 % (45.5-73.1); Platelet Count Result 96 k/mm3 (150-375); Red Blood Count 2.94 M/mm3 (4.6-6.20)
[2020-09-12 12:12] LABS: Anion Gap 3 mmol/L (8-16); Blood Urea Nitrogen 16 mg/dL (9-20); CRP 2.8 mg/dL (<1.0); Calcium 8.6 mg/dL (8.4-10.2); Carbon Dioxide 27 mmol/L (22-30); Chloride 101 mmol/L (98-107); Estimated Glomerular Filt Rate > 60; Glucose 132 mg/dL (75-110); Sodium 131 mmol/L (137-145)
[2020-09-12 12:24] LABS: Vancomycin Trough 21.1 ug/mL (10.0-20.0)
[2020-09-15 10:08] LABS: Basophils Absolute Auto 0.1 K/mm3 (0.0-0.1); Basophils Percent Auto 1.8 % (0.2-1.2); Eosinophils Absolute Auto 0.2 K/mm3 (0-0.3); Hematocrit 30.1 % (42.0-52.0); Immature Granulocyte Absolute 0.01 K/mm3 (0.00-0.031); Immature Granulocyte Percent A 0.3 % (0-0.5); Lymphocytes Absolute Auto 0.44 K/mm3 (0.9-3.2); Mean Corpuscular HGB Conc 33.2 g/dl (32-36); Mean Corpuscular Hemoglobin 33.3 pg (26-34); Mean Corpuscular Volume 100.3 fl (80-100); Mean Platelet Volume 9.4 fl (7.4-10.4); Monocytes Absolute Auto 0.7 K/mm3 (0.1-0.6); Monocytes Percent Auto 17.3 % (2.6-8.5); Neutrophils Absolute Auto 2.6 K/mm3 (1.3-6.7); Neutrophils Percent Auto 64.6 % (45.5-73.1); Platelet Count Result 104 k/mm3 (150-375)
[2020-09-15 10:23] LABS: Anion Gap 5 mmol/L (8-16); Blood Urea Nitrogen 12 mg/dL (9-20); Calcium 8.3 mg/dL (8.4-10.2); Carbon Dioxide 26 mmol/L (22-30); Chloride 101 mmol/L (98-107); Estimated Glomerular Filt Rate > 60; Glucose 135 mg/dL (75-110); Potassium 3.3 mmol/L (3.4-5.0); Sodium 132 mmol/L (137-145)
== END 2020-11-30 23:59 | disposition home or self-care (01) ==
LOC: HOME HLTH 09:52
PROVIDERS: PCP Internal Medicine; Visit Provider Internal Medicine Infectious Disease
DX: M72.6 Necrotizing fasciitis (principal); L03.116 Cellulitis of left lower limb; S91.302D Unspecified open wound, left foot, subsequent encounter
CPT/HCPCS: 80048; 80202; 85025; 85027; 86140

== ENCOUNTER → 2020-09-16 02:42 | Outpatient (CLI) | payer BC, SELFPAY ==
[2020-09-16 21:58] LABS: SARS-CoV-2 RNA PCR Negative
== END ==
PROVIDERS: PCP Internal Medicine; Visit Provider Orthopaedic Surgery
DX: Z01.812 Encounter for preprocedural laboratory examination (principal); Z20.822 Contact with and (suspected) exposure to COVID-19
CPT/HCPCS: C9803; U0003; U0005

== ENCOUNTER 2020-09-19 01:14 | Day surgery (SDC) | payer BC, SELFPAY ==
[2020-09-15 13:05] VITALS: BMI 24.4
[2020-09-19] VITALS (10 sets, daily range): BP systolic 95–117; BP diastolic 59–73; PULSE 58–72; RESP 12–18; TEMP 36.1; O2SAT 97–100
--- NOTE | 2020-09-19 07:25 | WPDHPUPDATE1 ---
History and Physical Update Update Date/Time: 09/19/20 07:25 History and Physical has been reviewed, including an updated exam of the patient. There are NO changes in the patient's condition. Covid test negative. Risks, benefits, and alternatives have been discussed and questions answered. Patient agrees to proceed with procedure.
[2020-09-19] MEDS: ACETAMINOPHEN 500 MG TABLET 1000 MG PO (07:57)
[2020-09-19] MEDS: LACTATED RINGERS 1,000 ML 30 ML IV CONT (08:00)
[2020-09-19] MEDS: KETOROLAC 15 MG/ML VIAL (*BKC) IV PUSH (08:04)
--- NOTE | 2020-09-19 08:12 | WPDANESEPPF ---
Anes - Initial Pre Proc Eval Procedure: Operation Date: 09/19/20 09:30 Proposed Procedures p Left Foot Debridement, Application Of Graft - Blair Negron MD Date/Time: 09/19/20 08:12 Surgeon: Blair Negron MD Pre Op Diagnosis: Left Foot Necrotizing Fasciitis Patient Data Age: 60 Gender: M Height: 6 ft 2 in Weight: 86.2 kg Allergies Allergy/AdvReac Type Severity Reaction Status Date / Time No Known Allergies Allergy Unknown Verified 09/15/20 12:43 Home Medications Medication Instructions Recorded Confirmed Type furosemide 40 mg tablet 40 mg PO DAILY tablet 08/19/19 09/15/20 History lactulose 10 gram/15 mL oral 5 ml PO DAILY ml 08/19/19 09/15/20 History solution omeprazole 20 mg capsule,delayed 40 mg PO BID cap 08/19/19 09/15/20 History release spironolactone 100 mg tablet 100 mg PO DAILY 08/19/19 09/15/20 History thiamine HCl (vitamin B1) 250 mg 250 mg PO DAILY 08/19/19 09/15/20 History tablet metoprolol succinate 50 mg 50 mg PO DAILY #30 tablet 05/23/20 09/15/20 Rx tablet,extended release 24 hr hydrocodone 5 mg-acetaminophen 325 1 tablet PO Q6H PRN #20 tablet 09/07/20 09/15/20 Rx mg tablet Patient hx anesthesia problems: none Family hx anesthesia problems: none PMFSH Past Medical History Medical History Abscess of foot including toes Alcoholic cirrhosis of liver He has abstained from alcohol for at least 2 years as of July 2020. Essential hypertension Gastroesophageal reflux disease Hyponatremia Necrotizing fasciitis of ankle and foot Paroxysmal atrial fibrillation Surgical History Surgical History History of surgery on arm (~2012) ORIF right humerus fracture. History of surgery on wrist History of ventral hernia repair (~11/2013) Subsequent abdominal wall exploration with drainage of a seroma at the same site in 03/2014. Family History Family History Mother Hypertension Family history of diabetes mellitus in first degree relative Diabetes mellitus Father Family history of pancreatic cancer Social History Social History Social History: The patient lives alone in [place]. Retired from [employer]. He has a longstanding history of alcohol abuse and reports on August 19, 2020 his most recent drink was 2 weeks ago. He also endorses marijuana use intermittently in a social setting. He designates his daughter Shawna as his surrogate decision maker and wishes to be a full code. Smoking status: Never smoker Alcohol intake: former Alcohol use details: ALCOHOL ABUSE DRANK FOR 30-40 YEARS Substance use: current Substance use type: marijuana Other substance usage details: 08/15/20 Living arrangements: alone Gender identity (if verbalized by the patient): Male Spiritual care concerns: No Anes - Eval Final PreProcedure Day of Procedure 09/19/20 08:12 Patient weight: normal Heart: regular rate and rhythm Lungs: clear to auscultation Airway: Mallampati scale class 1 Neurological: other (alert) Last oral intake: >/= 8 hours ASA classification: IV Emergent: no Anesthetic plan: proceed Anesthesia type and monitoring: general and standard monitoring Informed Consent: The patient's anesthetic plan and its attendant risks and benefits were discussed with the patient/family/POA. Questions were solicited and answers provided to the satisfaction of the patient/family/POA.
--- NOTE | 2020-09-19 08:31 | SUR.PREOP ---
PT STATES HE HAS AN INCENTIVE SPIROMETER AT HOME. STATES HE REMEMBERS THE INSTRUCTIONS.
[2020-09-19] MEDS: ceFAZolin 2 GM/D5W 50 ML 2 GM/50 ML BAG IVPB (08:57)
--- NOTE | 2020-09-19 10:22 | P.OP_ITS ---
Procedure Note - Detailed Date of procedure: 09/19/20 Pre-op diagnosis: Left Foot Necrotizing Fasciitis Post-op diagnosis: same Procedure performed: Debridement left foot neuropathic ulcer 10 x 5 cm, application allograft and xenograft. Description of procedure: Indications: Patient is a 60-year-old gentleman with peripheral neuropathy and left foot necrotizing fasciitis infection with Staph aureus. Patient underwent initial debridement. He returns now for debridement and re-evaluation with wound grafting. What was done: Patient identified in the preoperative holding. Informed consent given. Operative extremity marked. Patient received intravenous antibiotics. Patient brought to the operating room where underwent general anesthetic by anesthesia team. Positioned supine on operating room table. Time-out performed confirming the patient, site of the surgery and the plan. Left foot prepped draped usual sterile surgical fashion using a Betadine prep solution. Dorsum of the foot then addressed. Fifteen blade knife used to debride the skin, subcutaneous tissue, and muscle from the dorsum of the foot and the 2nd and 3rd toe. Skin, subcutaneous tissue, muscle sharply excised and passed off. Devitalized tissue was sharply excised and passed off. The subcutaneous area medial lateral and proximal wound debrided with a rongeur, all nonviable tissue excised and passed off. Wound then thoroughly irrigated with antibiotic solution. The final wound measured 12 cm in length by 4 cm in width by 1 cm depth at the intermetatarsal area. The wound was then covered with the Integra 4 by 4 cm primatrix Ag xenograft replacement. Integra amnioexcell plus 2 x 2 cm and 6 x 8 cm utilized proximal and distal. Arthrex amnion cord 3 x 6 cm was then applied to the dorsum the mid portion of the wound and sutured into place with 3 0 Monocryl interrupted suture. Sterile dressing applied. The patient was then woken from anesthesia, extubated and taken to the recovery room in stable condition. All sponge, needle, instrument counts were correct at the end of the case. Anesthesia: GLMA Surgeon: Blair Negron MD Anesthesia: GLMA Surgeon: Blair Negron MD Light Rail Signal Technician: mail handler assistant Estimated blood loss (mL): 10 Tourniquet time (min): 0 Drains: No Packing: No Pathology: none sent Complications: None Condition: stable Disposition: PACU Findings: Ulcer dimensions 10 cm length by 5 cm with. Good incorporation and viability of the 2nd and 3rd toe. Undermining in the 2nd and 3rd webspace approximately 1 cm each. No purulence noted.
[2020-09-19] MEDS: fentaNYL CITRATE INJ (*CRX) 100 MCG/2 ML VIAL 25 MCG IV PUSH ×2 (10:26→10:32)
[2020-09-19] MEDS: oxyCODONE HCL (*CRX) 5 MG TAB IR PO (11:47)
== END 2020-09-19 12:00 | disposition home or self-care (01) ==
PROVIDERS: PCP Internal Medicine; Visit Provider Orthopaedic Surgery
PROC: (CPT 11043; principal; 2020-09-19 09:30)
DX: L98.493 Non-pressure chronic ulcer of skin of other sites with necrosis of muscle (principal); M72.6 Necrotizing fasciitis; I10 Essential (primary) hypertension; K21.9 Gastro-esophageal reflux disease without esophagitis; E87.1 Hypo-osmolality and hyponatremia; I48.0 Paroxysmal atrial fibrillation; K70.30 Alcoholic cirrhosis of liver without ascites; F12.90 Cannabis use, unspecified, uncomplicated
CPT/HCPCS: 11043; 15275; 15276; A9270; J0690; J1885; J2250; J2704; J3010; J7120; Q4110

== ENCOUNTER 2020-11-02 09:13 | Emergency (ER) | payer MEDICARE, SELFPAY ==
--- NOTE | ~2020-11-02 | US_ITS ---
EXAMINATION: US venous doppler [facility] EXAM DATE: 11/02/2020 10:10 INDICATION: Left leg swelling, tenderness, left foot wound. TECHNIQUE: Multiple grayscale, color flow and Doppler images of the left lower extremity deep venous system were obtained and reviewed. There is no prior study for comparison. FINDINGS: The left common femoral, femoral and profunda veins demonstrate normal color flow, respirat ory variation, augmentation and compressibility. Compressibility, color flow confirmed within the le ft popliteal, posterior tibial, peroneal, and greater saphenous veins. IMPRESSION: No left lower extremity deep venous thrombosis. Reviewed, dictated and finalized at location A.
[2020-11-02 09:31] VITALS: BP 105/78; PULSE 59; RESP 18; TEMP 36.6; O2SAT 100
[2020-11-02 11:25] VITALS: BP 114/78; PULSE 0; RESP 20; TEMP 36.7; O2SAT 100
--- NOTE | 2020-11-02 11:32 | ED.LOWEXIN ---
HPI - Extremity Injury (Lower) General Chief Complaint: Extremity Injury, Lower Stated Complaint: wound swelling, increased pain, sob Time Seen by Provider: 11/02/20 11:31 History of Present Illness HPI Narrative: Seen at wound clinic this morning for care of chronic left foot wound s/p debridement. He was noted to have worsening of the edema in the lower leg. He also told the wound nurse that he had some EUGENE. He says that this is fairly chronic and unchanged. He was sent here for further evaluation. It seems that the primary concern was possible DVT, although there is no note in the chart and when I called to the wound care clinic there was no answer. He denies any significant change in appearance of the skin. He does have moderate pain in the left lower leg. No CP, SOB, fever, fatigue. Related Data Home Medications Medication Instructions Recorded Confirmed lactulose 10 gram/15 mL oral 5 ml PO TID ml 08/19/19 10/25/20 solution omeprazole 20 mg capsule,delayed 40 mg PO BID cap 08/19/19 10/25/20 release spironolactone 100 mg tablet 100 mg PO DAILY 08/19/19 10/25/20 thiamine HCl (vitamin B1) 250 mg 250 mg PO DAILY 08/19/19 10/25/20 tablet lidocaine HCl [Lidocaine Viscous] 1 applic MUCOUS MEMBRANE BID PRN 10/10/20 10/25/20 nadolol 40 mg PO DAILY 10/10/20 10/25/20 ciprofloxacin HCl 500 mg tablet 500 mg PO Q12H 10/25/20 10/25/20 furosemide 40 mg tablet 40 mg PO BID tablet 10/25/20 10/25/20 Allergies Allergy/AdvReac Type Severity Reaction Status Date / Time No Known Allergies Allergy Unknown Verified 10/25/20 10:56 Review of Systems Review of Systems: All systems reviewed & are unremarkable except as noted in HPI and below Constitutional: Constitutional: Denies chills, Denies fatigue, Denies fever(s) and Denies weakness Eyes: Eyes: Reports no additional eye complaints ENT: Reports system reviewed and no additional complaints, except as documented Cardiovascular: Cardiovascular: Denies chest pain Respiratory: Respiratory: Reports dyspnea Gastrointestinal: Gastrointestinal: Denies abdominal pain, Denies nausea and Denies vomiting Musculoskeletal: Musculoskeletal: Denies back pain Neurologic: Reports system reviewed and no additional complaints, except as documented PMFSH Past Medical History Medical History Abscess of foot including toes Alcoholic cirrhosis of liver He has abstained from alcohol for at least 2 years as of July 2020. Essential hypertension Fall Gastroesophageal reflux disease Hyponatremia Left ankle pain Necrotizing fasciitis of ankle and foot Paroxysmal atrial fibrillation Surgical History Surgical History History of surgery on arm (~2012) ORIF right humerus fracture. History of surgery on wrist History of ventral hernia repair (~11/2013) Subsequent abdominal wall exploration with drainage of a seroma at the same site in 03/2014. Family History Family History Mother Hypertension Family history of diabetes mellitus in first degree relative Diabetes mellitus Father Family history of pancreatic cancer Social History Social History Social History: The patient lives alone in [place]. Retired from [employer]. He has a longstanding history of alcohol abuse and reports on August 19, 2020 his most recent drink was 2 weeks ago. He also endorses marijuana use intermittently in a social setting. He designates his daughter Shawna as his surrogate decision maker and wishes to be a full code. Smoking status: Never smoker Alcohol intake: former Substance use: current Substance use type: marijuana Other substance usage details: 08/15/20 Gender identity (if verbalized by the patient): Male Spiritual care concerns: No Exam Const:
--- NOTE | 2020-11-02 12:07 | ECG_ITS ---
Measurements Intervals [place] Rate: 44 P: 22 DC: 169 QRS: -5 QRSD: 101 T: 16 QT: 521 QTc: 448 Interpretive Statements SINUS BRADYCARDIA ABNORMAL ECG Electronically Signed On 11-02-2020 12:50:24 CDT by Jorge Limon D.O.
[2020-11-02 12:22] LABS: Basophils Absolute Auto 0.1 K/mm3 (0.0-0.1); Basophils Percent Auto 0.9 % (0.2-1.2); Eosinophils Absolute Auto 0.1 K/mm3 (0-0.3); Eosinophils Percent Auto 1.6 % (0-4.4); Hematocrit 30.8 % (42.0-52.0); Hemoglobin 10.4 g/dL (14.0-18.0); Immature Granulocyte Absolute 0.02 K/mm3 (0.00-0.031); Immature Granulocyte Percent A 0.4 % (0-0.5); Lymphocytes Absolute Auto 0.63 K/mm3 (0.9-3.2); Mean Corpuscular HGB Conc 33.8 g/dl (32-36); Mean Corpuscular Hemoglobin 32.9 pg (26-34); Mean Corpuscular Volume 97.5 fl (80-100); Mean Platelet Volume 8.6 fl (7.4-10.4); Monocytes Absolute Auto 0.7 K/mm3 (0.1-0.6); Neutrophils Absolute Auto 4.2 K/mm3 (1.3-6.7); Neutrophils Percent Auto 73.1 % (45.5-73.1); Platelet Count Result 98 k/mm3 (150-375); Red Blood Count 3.16 M/mm3 (4.6-6.20); Red Cell Distribution Width 14.1 % (11.5-14.5); White Blood Count 5.7 K/mm3 (4.5-10.0)
[2020-11-02 12:31] LABS: Partial Thromboplastin Time 36.3 SECONDS (22.3-36.8)
[2020-11-02 12:34] LABS: Alanine Aminotransferase 19 U/L (4-50); Albumin Level 3.1 g/dL (3.5-5.1); Alkaline Phosphatase 108 U/L (38-126); Anion Gap 5 mmol/L (8-16); Aspartate Amino Transferase 42 U/L (17-59); Bilirubin,Total 1.7 mg/dL (0.2-1.3); Blood Urea Nitrogen 15 mg/dL (9-20); Calcium 8.4 mg/dL (8.4-10.2); Carbon Dioxide 30 mmol/L (22-30); Chloride 96 mmol/L (98-107); Estimated CRCL calculation 65 ml/min; Estimated Glomerular Filt Rate 57; Glucose 107 mg/dL (75-110); Potassium 3.5 mmol/L (3.4-5.0); Sodium 131 mmol/L (137-145)
[2020-11-02 12:38] LABS: Prothrombin Time 16.1 Seconds (11.1-14.7)
[2020-11-02 12:39] LABS: INR 1.2
[2020-11-02 12:46] LABS: NT Pro B Type Natriuretic Pept 954 PG/ML (5-100); Troponin I < 0.012 ng/mL (0.000-0.034)
[2020-11-02 13:28] VITALS: BP 122/78; PULSE 56; RESP 18; O2SAT 97
[2020-11-02 14:23] VITALS: BP 127/64; PULSE 78; RESP 18; O2SAT 99
== END 2020-11-02 14:24 | disposition home or self-care (01) ==
PROVIDERS: Emergency Provider Emergency Medicine; PCP Internal Medicine
DX: R60.0 Localized edema (principal); R06.00 Dyspnea, unspecified; L98.8 Other specified disorders of the skin and subcutaneous tissue; I10 Essential (primary) hypertension; K21.9 Gastro-esophageal reflux disease without esophagitis; I48.0 Paroxysmal atrial fibrillation
CPT/HCPCS: 36415; 80053; 83880; 84484; 85025; 85610; 85730; 93005; 93971; 99212; 99284; G0463

== ENCOUNTER 2020-11-25 07:25 | Outpatient (RCR) | payer BC, MEDICARE, SELFPAY ==
--- NOTE | 2020-08-29 09:21 | PM.PNORT ---
Progress Note: A&P Assessment and Plan (1) Necrotizing fasciitis of ankle and foot: Code(s): M72.6 - Necrotizing fasciitis Status: Acute Assessment and Plan: POD #10 Debridement left foot POD #4 Status post 2nd debridement, debridement of abscess and graft placement. Dressing removed. Graft remains in place. 2nd/3rd ray with increased moisture on the plantar aspect. No purulence. Skin soft. No probing to bone. Plantar incision remains well-approximated. Lateral foot with erythema, some blistering. No fluctuance or signs of abscess. Distal leg with continued discoloration, unchanged from hospitalization. New dressing applied. Transfer to all skin surrounding graft and on the plantar aspect of the foot over incision line. 2x2 gauze between toes for moisture wicking as well. Xeroform gauze to the dorsal foot overlying the graft. Plan for dressing changes three times this week in the [facility] wound clinic due to excessive drainage and inability to case or wound VAC. Follow up with [facility] wound clinic nurses Saturday and orthopedic evaluation on Saturday. Patient educated on signs/symptoms of worsening infection to report to ED. Keep current dressing in place. Elevate foot on pillows. No weight bearing on the LLE. Continue IV antibiotics per ID. Continue home health for IV infusion. Subjective Subjective Date/Time Seen: 08/29/20 09:21 60 year old male presents to [facility] wound clinic for dressing change of the left foot today. Per patient report, no issues with IV antibiotics. His dressing remains in place from prior to his discharge from the hospital as ordered. Home health is coming out to help with IV antibiotics. He will be on antibiotics through 09/15. No new complaints. Denies fever, chills, night sweats, nausea, vomiting or diarrhea. Left Foot Debridement (08/19/20) Debridement/Graft Application (08/25/20) Review of Systems Constitutional: Constitutional: Reports no additional constitutional complaints, Denies excessive sweating and Denies fever(s) Eyes: Eyes: Reports no additional eye complaints and Denies change in vision ENT: Reports system reviewed and no additional complaints, except as documented and Reports Normal hearing present Cardiovascular: Cardiovascular: Denies chest pain, Denies diaphoresis, Denies leg ulcers and Denies dyspnea on exertion Respiratory: Respiratory: Reports no additional respiratory complaints, Denies cough and Denies dyspnea on exertion Gastrointestinal: Gastrointestinal: Reports no additional gastrointestinal complaints, Denies abdominal pain, Denies constipation, Denies nausea and Denies vomiting Genitourinary: Genitourinary: Reports no additional male genitourinary complaints, Denies hematuria and Denies urinary frequency Musculoskeletal: Musculoskeletal: Reports as per HPI Integumentary/Breasts: Skin/Breast: Reports as per HPI Neurologic: Reports Normal hearing present Psychiatric: Psychiatric: Reports no additional psychiatric complaints Endocrine: Endocrine: Reports no additional endocrine complaints, Denies change in body appearance, Denies excessive sweating, Denies polyphagia, Denies polydipsia and Denies polyuria Exam Const: General: comfortable and no acute distress Nutritional Appearance: well nourished Orientation/consciousness: patient oriented x3 Limitations: no limitations HENMT: Head: normocephalic and atraumatic Ears: external ears normal Face and sinus: face symmetric Mouth: Yes moist mucous membranes Eyes: General: appearance normal, both eyes and all related structures Eyelids: eyelids normal Conjunctivae: conjunctivae normal Sclera: sclerae normal Neck: Neck: supple and no JVD Resp: Effort & Inspection: normal respiratory effort Cardio: Jugular venous distension: no JVD Rate: regular rate Rhythm: regular rhythm GI: Inspection: non-distended GI Palp: Yes Soft to palpation and No Tenderness to palpation present (GI) Neuro: General: gait normal Cogn
[2020-08-29 13:42] VITALS: BMI 25.8
--- NOTE | 2020-09-02 09:49 | PM.PNORT ---
Progress Note: A&P Assessment and Plan (1) Necrotizing fasciitis of ankle and foot: Code(s): M72.6 - Necrotizing fasciitis Status: Acute Assessment and Plan: POD #14 Debridement left foot POD #8 Status post 2nd debridement, debridement of abscess and graft placement. Dressing removed. Graft remains in place. 2nd/3rd ray with increased moisture on the plantar aspect. No purulence. Skin soft. No probing to bone. Plantar incision remains well-approximated. Lateral foot with erythema, some blistering. No fluctuance or signs of abscess. Distal leg with continued discoloration, unchanged from hospitalization. New dressing applied. Transfer to all skin surrounding graft and on the plantar aspect of the foot over incision line. 2x2 gauze between toes for moisture wicking as well. Xeroform gauze to the dorsal foot overlying the graft. Plan for dressing changes three times this week in the [facility] wound clinic due to excessive drainage and inability to cast or wound VAC. Follow up with [facility] wound clinic nurses Saturday, Saturday and orthopedic evaluation on Saturday. Patient educated on signs/symptoms of worsening infection to report to ED. Keep current dressing in place. Elevate foot on pillows. No weight bearing on the LLE. Continue IV antibiotics per ID. Continue home health for IV infusion. Subjective Subjective Date/Time Seen: 09/02/20 09:49 postoperative visit [facility]. No new complaints. No fever or chills. No problems with antibiotics. Exam Const: General: comfortable and no acute distress Nutritional Appearance: well nourished Orientation/consciousness: patient oriented x3 Limitations: no limitations HENMT: Head: normocephalic and atraumatic Ears: external ears normal Face and sinus: face symmetric Mouth: Yes moist mucous membranes Eyes: General: appearance normal, both eyes and all related structures Eyelids: eyelids normal Conjunctivae: conjunctivae normal Sclera: sclerae normal Neck: Neck: supple and no JVD Resp: Effort & Inspection: normal respiratory effort Cardio: Jugular venous distension: no JVD Rate: regular rate Rhythm: regular rhythm GI: Inspection: non-distended GI Palp: Yes Soft to palpation and No Tenderness to palpation present (GI) Neuro: General: gait normal Cognition (Neuro): normal cognition Speech: normal speech Extrem: Left lower extremity: lower leg Details: erythema, tenderness and pitting edema Details: 2+, ankle (erythema ) Details: tenderness, swelling Details: diffusely, normal ROM and warmth and foot Details: tenderness (2nd/3rd Ray ), abnormal ROM of toe (2nd/3rd Ray ) Details: pain with active ROM Location: of the 2nd digit and of the 3rd digit, warmth, edema, ecchymosis, vascular exam (dopplered pedal pulse ) and motor-sensory exam (neuropathy ) two point discrimination abnormal and light-touch abnormal; abnormal capillary refill Other: Dressing left foot changed. Graft on the dorsum of the foot intact. Incision on the plantar aspect clean and dry. No active purulent drainage or wound drainage. Decreased swelling through the foot ankle and leg. Decreased erythema foot ankle and leg. Negative Homans sign. warmth still present. Erythema resolves with elevation. Psych: Mental Status: mental status grossly normal Affect: normal affect Thought content: Yes Normal thought content present Objective Data Meds/Results Medications: Active Medications Generic Name Dose Route Start Last Admin Trade Name Freq PRN Reason Stop Dose Admin Wound Care/Dressing Products 1 patch 08/29/20 13:55 Mepilex Transfer Drsg 6x8 TOPICAL 11/27/20 23:59 PRN PRN Wound Care
--- NOTE | 2020-09-05 14:48 | PM.PNORT ---
Progress Note: A&P Assessment and Plan (1) Necrotizing fasciitis of ankle and foot: Code(s): M72.6 - Necrotizing fasciitis Status: Acute Assessment and Plan: POD #17 Debridement left foot POD #11 Status post 2nd debridement, debridement of abscess and graft placement. Dressing removed. Graft remains in place. 2nd/3rd ray with improvement in moisture on the plantar aspect. No purulence. Skin soft. No probing to bone. Plantar incision remains well-approximated. Lateral foot with erythema, some blistering, improves with elevation. No fluctuance or signs of abscess. Distal leg with continued discoloration, unchanged from hospitalization. New dressing applied. Transfer to all skin surrounding graft and on the plantar aspect of the foot over incision line. 2x2 gauze between toes for moisture wicking as well. Xeroform gauze to the dorsal foot overlying the graft. Plan for dressing changes three times this week in the [facility] wound clinic due to excessive drainage and inability to cast or wound VAC. Follow up with [facility] wound clinic on Saturday and orthopedic evaluation on Saturday. Patient educated on signs/symptoms of worsening infection to report to ED. Keep current dressing in place. Elevate foot on pillows. No weight bearing on the LLE. Continue IV antibiotics per ID. Continue home health for IV infusion. Subjective Subjective Date/Time Seen: 09/05/20 14:48 Patient follows up in [place] wound clinic today for re-evaluation of the left foot wound. He denies fever, chills, night sweats, nausea vomiting or diarrhea. He continues IV antibiotics under the direction of Dr. wallis. He has a PICC line in place. Review of Systems Constitutional: Constitutional: Reports no additional constitutional complaints, Denies excessive sweating and Denies fever(s) Eyes: Eyes: Reports no additional eye complaints and Denies change in vision ENT: Reports system reviewed and no additional complaints, except as documented and Reports Normal hearing present Cardiovascular: Cardiovascular: Denies chest pain, Denies diaphoresis, Denies leg ulcers and Denies dyspnea on exertion Respiratory: Respiratory: Reports no additional respiratory complaints, Denies cough and Denies dyspnea on exertion Gastrointestinal: Gastrointestinal: Reports no additional gastrointestinal complaints, Denies abdominal pain, Denies constipation, Denies nausea and Denies vomiting Genitourinary: Genitourinary: Reports no additional male genitourinary complaints, Denies hematuria and Denies urinary frequency Musculoskeletal: Musculoskeletal: Reports as per HPI Integumentary/Breasts: Skin/Breast: Reports as per HPI Neurologic: Reports Normal hearing present Psychiatric: Psychiatric: Reports no additional psychiatric complaints Endocrine: Endocrine: Reports no additional endocrine complaints, Denies change in body appearance, Denies excessive sweating, Denies polyphagia, Denies polydipsia and Denies polyuria Exam Const: General: comfortable and no acute distress Nutritional Appearance: well nourished Orientation/consciousness: patient oriented x3 Limitations: no limitations HENMT: Head: normocephalic and atraumatic Ears: external ears normal Face and sinus: face symmetric Mouth: Yes moist mucous membranes Eyes: General: appearance normal, both eyes and all related structures Eyelids: eyelids normal Conjunctivae: conjunctivae normal Sclera: sclerae normal Neck: Neck: supple and no JVD Resp: Effort & Inspection: normal respiratory effort Cardio: Jugular venous distension: no JVD Rate: regular rate Rhythm: regular rhythm GI: Inspection: non-distended GI Palp: Yes Soft to palpation and No Tenderness to palpation present (GI) Neuro: General: gait normal Cognition (Neuro): normal cognition Speech: normal speech Extrem: Left lower extremity: lower leg Details: erythema, tenderness and pitting edema Details: 2+, ankle (erythema ) Details: tenderness, swe
--- NOTE | 2020-09-09 08:54 | PM.PNORT ---
Progress Note: A&P Assessment and Plan (1) Necrotizing fasciitis of ankle and foot: Code(s): M72.6 - Necrotizing fasciitis Status: Acute Assessment and Plan: 3 weeks status post 1st debridement of left foot 2 weeks, 1 day status post 2nd debridement of left foot, Debridement of abscess and graft application. Dressing removed today in the wound clinic. Graft remains in place on the dorsal forefoot to midfoot. Graft in the interspace between the 2nd and 3rd ray removed. Improvement in appearance of the 2nd and 3rd ray however still with concern for 3rd ray viability. No purulence. Skin is soft and no probing to bone. Plantar incision remains well approximated, no active drainage. Lateral hindfoot with improvement in erythema and blistering. Erythema completely resolved with elevation. No signs of active abscess. Transfer to all skin surrounding graft and on the plantar aspect of the foot over incision line. 2x2 gauze between toes for moisture wicking as well. Xeroform gauze to the dorsal foot overlying the graft. patient follow-up on Saturday for re-evaluation wound dressing change. Patient may benefit from return to operating room for repeat graft application expedite healing process of dorsal wound bed. Still with concern for viability of the 3rd ray of the left foot, patient verbalized understanding. Plan for definitive treatment planning next week after re-evaluation Subjective Subjective Date/Time Seen: 09/09/20 08:54 The patient follows up in [place] wound clinic for re-evaluation of left dorsal foot necrotizing fasciitis wound. He is now 2 weeks, 1 day status post 2nd debridement in graft application of the left foot. He continues IV antibiotics under the direction of Dr. wallis. He has a PICC line in place currently. He has been following in clinic for dressing changes 3 times a week. He denies fever, chills, night sweats, nausea, vomiting or diarrhea. He reports improvement in pain in the left foot. No new complaints. Review of Systems Constitutional: Constitutional: Reports no additional constitutional complaints, Denies excessive sweating and Denies fever(s) Eyes: Eyes: Reports no additional eye complaints and Denies change in vision ENT: Reports system reviewed and no additional complaints, except as documented and Reports Normal hearing present Cardiovascular: Cardiovascular: Denies chest pain, Denies diaphoresis, Denies leg ulcers and Denies dyspnea on exertion Respiratory: Respiratory: Reports no additional respiratory complaints, Denies cough and Denies dyspnea on exertion Gastrointestinal: Gastrointestinal: Reports no additional gastrointestinal complaints, Denies abdominal pain, Denies constipation, Denies nausea and Denies vomiting Genitourinary: Genitourinary: Reports no additional male genitourinary complaints, Denies hematuria and Denies urinary frequency Musculoskeletal: Musculoskeletal: Reports as per HPI Integumentary/Breasts: Skin/Breast: Reports as per HPI Neurologic: Reports Normal hearing present Psychiatric: Psychiatric: Reports no additional psychiatric complaints Endocrine: Endocrine: Reports no additional endocrine complaints, Denies change in body appearance, Denies excessive sweating, Denies polyphagia, Denies polydipsia and Denies polyuria Exam Const: General: comfortable and no acute distress Nutritional Appearance: well nourished Orientation/consciousness: patient oriented x3 Limitations: no limitations HENMT: Head: normocephalic and atraumatic Ears: external ears normal Face and sinus: face symmetric Mouth: Yes moist mucous membranes Eyes: General: appearance normal, both eyes and all related structures Eyelids: eyelids normal Conjunctivae: conjunctivae normal Sclera: sclerae normal Neck: Neck: supple and no JVD Resp: Effort & Inspection: normal respiratory effort Cardio: Jugular venous distension: no JVD Rate: regular rate Rhythm: regular
--- NOTE | 2020-09-13 08:04 | PCWOUND ---
WOCN NOTE appointment cancelled today due to Dr Negron's office being closed. Rescheduled for Saturday09/14/20 at 0830.
--- NOTE | 2020-09-14 11:14 | PM.PNORT ---
Progress Note: A&P Assessment and Plan (1) Necrotizing fasciitis of ankle and foot: Code(s): M72.6 - Necrotizing fasciitis Status: Acute Assessment and Plan: 4 weeks status post 1st debridement of left foot 3 weeks status post 2nd debridement of left foot, Debridement of abscess and graft application. Graft removed from the dorsal forefoot today. Sutures removed. Plantar sutures removed as well in the plantar incision remains well approximated, no protein in the the skin surface. No purulence. No malodor. Second and 3rd ray with tissue loss noted. No necrosis. No malodor. Erythema and swelling to the ankle and forefoot improved. No signs of an active abscess. Silver gel applied to the dorsal wound and covered with Mepitel ones. ABD pads applied as well as roll gauze. Discussed further nonoperative and operative treatment options with the patient. Patient would benefit from return to operating room I&D and repeat graft application to improve healing. The patients questions were answered. The patient desires operative treatment. Risks of surgery including but not limited to neurovascular damage, wound complications, blood clot, pulmonary embolus, stroke, myocardial infarction, anesthetic risks up to and including were reviewed. Continued pain and possible dysfunction were explained. No guarantees were offered. The patient understands and wishes to proceed. Plan: Debridement of left foot and application of graft by Dr. Negron Patient to return to you the [place] wound clinic on Saturday for dressing change. Will begin surgery scheduling process. Subjective Subjective Date/Time Seen: 09/14/20 11:14 60-year-old male follows up in the wound clinic today for re-evaluation of left dorsal foot necrotizing fasciitis wound. The patient is now 3 weeks status post 2nd debridement and graft application of the left foot. He continues IV antibiotics under the direction of Dr. wallis. He has a PICC line in place currently. He has been falling in the [facility] for dressing changes 3 times weekly. He denies fever, chills, night sweats, nausea, vomiting or diarrhea. He denies pain in the left foot today. No new complaints. Review of Systems Constitutional: Constitutional: Reports no additional constitutional complaints, Denies excessive sweating and Denies fever(s) Eyes: Eyes: Reports no additional eye complaints and Denies change in vision ENT: Reports system reviewed and no additional complaints, except as documented and Reports Normal hearing present Cardiovascular: Cardiovascular: Denies chest pain, Denies diaphoresis, Denies leg ulcers and Denies dyspnea on exertion Respiratory: Respiratory: Reports no additional respiratory complaints, Denies cough and Denies dyspnea on exertion Gastrointestinal: Gastrointestinal: Reports no additional gastrointestinal complaints, Denies abdominal pain, Denies constipation, Denies nausea and Denies vomiting Genitourinary: Genitourinary: Reports no additional male genitourinary complaints, Denies hematuria and Denies urinary frequency Musculoskeletal: Musculoskeletal: Reports as per HPI Integumentary/Breasts: Skin/Breast: Reports as per HPI Neurologic: Reports Normal hearing present Psychiatric: Psychiatric: Reports no additional psychiatric complaints Endocrine: Endocrine: Reports no additional endocrine complaints, Denies change in body appearance, Denies excessive sweating, Denies polyphagia, Denies polydipsia and Denies polyuria Exam Const: General: comfortable and no acute distress Nutritional Appearance: well nourished Orientation/consciousness: patient oriented x3 Limitations: no limitations HENMT: Head: normocephalic and atraumatic Ears: external ears normal Face and sinus: face symmetric Mouth: Yes moist mucous membranes Eyes: General: appearance normal, both eyes and all related structures Eyelids: eyelids normal Conjunctivae: conjunctivae no
--- NOTE | 2020-09-16 08:53 | PM.PNORT ---
Progress Note: A&P Assessment and Plan (1) Necrotizing fasciitis of ankle and foot: Code(s): M72.6 - Necrotizing fasciitis Status: Acute Assessment and Plan: 4 weeks status post 1st debridement of left foot 3 weeks status post 2nd debridement of left foot, Debridement of abscess and graft application. devitalized skin and subcutaneous tissue around the left foot and left foot wound. Treatment options reviewed. This was debrided today without difficulty down to the subcutaneous level. We have him scheduled for application of graft in the operating after debridement September 19. Silver gel applied to the dorsal wound and covered with Mepitel ones. ABD pads applied as well as roll gauze. Discussed further nonoperative and operative treatment options with the patient. Patient would benefit from return to operating room I&D and repeat graft application to improve healing. The patients questions were answered. The patient desires operative treatment. Risks of surgery including but not limited to neurovascular damage, wound complications, blood clot, pulmonary embolus, stroke, myocardial infarction, anesthetic risks up to and including were reviewed. Continued pain and possible dysfunction were explained. No guarantees were offered. The patient understands and wishes to proceed. Plan: Debridement of left foot and application of graft by Dr. Negron Patient to return to you the [place] wound clinic on Thursday 09/21 for dressing change. (2) Neuropathic ulcer of foot: Qualifiers: Laterality: right Non-pressure ulcer stage: with fat layer exposed Qualified Code(s): L97.512 - Non-pressure chronic ulcer of other part of right foot with fat layer exposed Code(s): L97.509 - Non-pressure chronic ulcer of other part of unspecified foot with unspecified severity Status: Acute Assessment and Plan: Neuropathic ulcer right foot under the 2nd metatarsal head. No signs of infection. Debrided today with 15 blade knife. Discussed options of excision of exostosis versus non operative treatment with custom inserts. Were going to pad with mepitel at this time. continue observation until able to obtain inserts. Subjective Subjective Date/Time Seen: 09/16/20 08:53 Patient returns to [facility] outpatient wound clinic follow-up foot new complaint diabetic foot ulcer right foot. Patient on intravenous antibiotics. Has continued with dressing changes 3 times a week tear at the wound clinic. No changes left foot his report. Some pain us and skin changes on plantar aspect of the right foot over the past month. Exam Const: General: comfortable and no acute distress Nutritional Appearance: well nourished Orientation/consciousness: patient oriented x3 Limitations: no limitations HENMT: Head: normocephalic and atraumatic Ears: external ears normal Face and sinus: face symmetric Mouth: Yes moist mucous membranes Eyes: General: appearance normal, both eyes and all related structures Eyelids: eyelids normal Conjunctivae: conjunctivae normal Sclera: sclerae normal Neck: Neck: supple and no JVD Resp: Effort & Inspection: normal respiratory effort Cardio: Jugular venous distension: no JVD Rate: regular rate Rhythm: regular rhythm GI: Inspection: non-distended GI Palp: Yes Soft to palpation and No Tenderness to palpation present (GI) Neuro: General: gait normal Cognition (Neuro): normal cognition Speech: normal speech Extrem: Left lower extremity: lower leg Details: erythema, tenderness and pitting edema Details: 2+, ankle (erythema ) Details: tenderness, swelling Details: diffusely, normal ROM and warmth and foot Details: tenderness (2nd/3rd Ray ), abnormal ROM of toe (2nd/3rd Ray ) Details: pain with active ROM Location: of the 2nd digit and of the 3rd digit, warmth, edema, ecchymosis, vascular exam (dopplered pedal pulse ) and motor-sensory exam (neuropathy ) two point discriminatio
--- NOTE | 2020-09-16 09:08 | PM.PROC ---
Procedure Note - Detailed Date of procedure: 09/16/20 Pre-op diagnosis: neuropathic ulcer left foot Neuropathic ulcer right foot Post-op diagnosis: same Procedure performed: excisional debridement down to subcutaneous layer left and right foot. Left foot 2 x 2 cm. Right foot 1.5 x 1.5 cm. Description of procedure: Patient identified and informed consent given. Left and right foot sterilized with alcohol prep solution. Fifteen blade knife used to sharply excise devitalized tissue from the left and right foot ulcer areas. Viable tissue left in place. Skin and subcutaneous tissue layers debrided. Bleeding controlled with local pressure. Sterile dressing applied. Patient tolerated without incident. Anesthesia: none Surgeon: Blair Negron MD Manager Of Learning: JAVAN Deluna Estimated blood loss (mL): 1 Drains: No Packing: Yes Pathology: none sent Complications: None Condition: stable Disposition: other ( Home with home health)
--- NOTE | 2020-09-23 08:50 | PM.PNORT ---
Progress Note: A&P Assessment and Plan (1) Necrotizing fasciitis of ankle and foot: Code(s): M72.6 - Necrotizing fasciitis Status: Acute Assessment and Plan: Four days status post debridement of left foot with application of graft. Dressing changed today. Graft appears to be taking well. Toes appear viable. No signs of infection. New sterile dressing applied. Continue with offloading with postop shoe weight-bearing on the heel only. Continue planned for Saturday dressing change here in the wound clinic. (2) Neuropathic ulcer of foot: Qualifiers: Laterality: right Non-pressure ulcer stage: with fat layer exposed Qualified Code(s): L97.512 - Non-pressure chronic ulcer of other part of right foot with fat layer exposed Code(s): L97.509 - Non-pressure chronic ulcer of other part of unspecified foot with unspecified severity Status: Acute Subjective Subjective Date/Time Seen: 09/23/20 08:50 patient returns [facility] outpatient wound clinic. Status post debridement and application graft left foot. No interval complaints. Exam Const: General: comfortable and no acute distress Nutritional Appearance: well nourished Orientation/consciousness: patient oriented x3 Limitations: no limitations HENMT: Head: normocephalic and atraumatic Ears: external ears normal Face and sinus: face symmetric Mouth: Yes moist mucous membranes Eyes: General: appearance normal, both eyes and all related structures Eyelids: eyelids normal Conjunctivae: conjunctivae normal Sclera: sclerae normal Neck: Neck: supple and no JVD Resp: Effort & Inspection: normal respiratory effort Cardio: Jugular venous distension: no JVD Rate: regular rate Rhythm: regular rhythm GI: Inspection: non-distended GI Palp: Yes Soft to palpation and No Tenderness to palpation present (GI) Neuro: General: gait normal Cognition (Neuro): normal cognition Speech: normal speech Extrem: Left lower extremity: lower leg Details: erythema, tenderness and pitting edema Details: 2+, ankle (erythema ) Details: tenderness, swelling Details: diffusely, normal ROM and warmth and foot Details: tenderness (2nd/3rd Ray ), abnormal ROM of toe (2nd/3rd Ray ) Details: pain with active ROM Location: of the 2nd digit and of the 3rd digit, warmth, edema, ecchymosis, vascular exam (dopplered pedal pulse ) and motor-sensory exam (neuropathy ) two point discrimination abnormal and light-touch abnormal; abnormal capillary refill Other: Dressing on the left dorsal foot changed today. wound bed with graft like appearance in place. No drainage noted. Decreased swelling throughout the foot and ankle and no notable erythema. Negative Homans sign. Wound length 12 cm, width 4 cm. 1 cm probing in the 2nd and 3rd Webspace . Improved. Improved viability 2nd, 3rd and 4th toe with good capillary refill. Psych: Mental Status: mental status grossly normal Affect: normal affect Thought content: Yes Normal thought content present Objective Data Meds/Results Medications: Active Medications Generic Name Dose Route Start Last Admin Trade Name Freq PRN Reason Stop Dose Admin Silver Nitrate 1 applic 09/14/20 12:50 Silvergel (Elta) 45 Ml TOPICAL 12/12/20 23:55 PRN PRN Wound Care Wound Care/Dressing Products 1 patch 08/29/20 13:55 Mepilex Transfer Drsg 6x8 TOPICAL 11/27/20 23:59 PRN PRN Wound Care Wound Care/Dressing Products 1 each 09/16/20 12:03 Foam Bandage (Mepilex 4x4) Bandage TOPICAL 12/14/20 23:59 PRN PRN Wound Care
--- NOTE | 2020-09-23 08:55 | PM.PNORT ---
Progress Note: A&P Assessment and Plan (1) Necrotizing fasciitis of ankle and foot: Code(s): M72.6 - Necrotizing fasciitis Status: Acute Assessment and Plan: 2 days status post debridement of left foot with application of graft. Dressing changed today. Graft appears to be taking well. Toes appear viable. No signs of infection. New sterile dressing applied. Continue with offloading with postop shoe weight-bearing on the heel only. follow-up in 2 days for dressing change and decision on casting left foot. Continue plan for Saturday dressing change here in the wound clinic. (2) Neuropathic ulcer of foot: Qualifiers: Laterality: right Non-pressure ulcer stage: with fat layer exposed Qualified Code(s): L97.512 - Non-pressure chronic ulcer of other part of right foot with fat layer exposed Code(s): L97.509 - Non-pressure chronic ulcer of other part of unspecified foot with unspecified severity Status: Acute Subjective Subjective Date/Time Seen: 09/21/20 08:15 Postoperative visit left foot. Status post debridement and graft application 2 days ago. No interval complaints. Patient states doing well. Has splint in place. Exam Const: General: comfortable and no acute distress Nutritional Appearance: well nourished Orientation/consciousness: patient oriented x3 Limitations: no limitations HENMT: Head: normocephalic and atraumatic Ears: external ears normal Face and sinus: face symmetric Mouth: Yes moist mucous membranes Eyes: General: appearance normal, both eyes and all related structures Eyelids: eyelids normal Conjunctivae: conjunctivae normal Sclera: sclerae normal Neck: Neck: supple and no JVD Resp: Effort & Inspection: normal respiratory effort Cardio: Jugular venous distension: no JVD Rate: regular rate Rhythm: regular rhythm GI: Inspection: non-distended GI Palp: Yes Soft to palpation and No Tenderness to palpation present (GI) Neuro: General: gait normal Cognition (Neuro): normal cognition Speech: normal speech Extrem: Left lower extremity: lower leg Details: erythema, tenderness and pitting edema Details: 2+, ankle (erythema ) Details: tenderness, swelling Details: diffusely, normal ROM and warmth and foot Details: tenderness (2nd/3rd Ray ), abnormal ROM of toe (2nd/3rd Ray ) Details: pain with active ROM Location: of the 2nd digit and of the 3rd digit, warmth, edema, ecchymosis, vascular exam (dopplered pedal pulse ) and motor-sensory exam (neuropathy ) two point discrimination abnormal and light-touch abnormal; abnormal capillary refill Other: Left foot splint removed. Mepilex 1 removed.. wound bed with graft like appearance in place. Mild drainage noted. Decreased swelling throughout the foot and ankle and no notable erythema. Negative Homans sign. Wound length 12 cm, width 4 cm. 1 cm probing in the 2nd and 3rd Webspace . Improved. Improved viability 2nd, 3rd and 4th toe with good capillary refill. Psych: Mental Status: mental status grossly normal Affect: normal affect Thought content: Yes Normal thought content present Objective Data Meds/Results Medications: Active Medications Generic Name Dose Route Start Last Admin Trade Name Freq PRN Reason Stop Dose Admin Silver Nitrate 1 applic 09/14/20 12:50 Silvergel (Elta) 45 Ml TOPICAL 12/12/20 23:55 PRN PRN Wound Care Wound Care/Dressing Products 1 patch 08/29/20 13:55 Mepilex Transfer Drsg 6x8 TOPICAL 11/27/20 23:59 PRN PRN Wound Care Wound Care/Dressing Products 1 each 09/16/20 12:03 Foam Bandage (Mepilex 4x4) Bandage TOPICAL 12/14/20 23:59 PRN PRN Wound Care
--- NOTE | 2020-09-30 08:40 | PM.PNORT ---
Progress Note: A&P Assessment and Plan (1) Necrotizing fasciitis of ankle and foot: Code(s): M72.6 - Necrotizing fasciitis Status: Acute Assessment and Plan: 11 days status post debridement of left foot with application of graft. Dressing changed today. Graft appears to be taking well. Toes appear viable. No signs of infection. New sterile dressing applied. Continue with offloading with postop shoe weight-bearing on the heel only. follow-up in Wound clinic 3 times per week for dressing change.. Continue plan for Saturday dressing change here in the wound clinic. Patient has EGD scheduled in 1 week. Pain medication refill to be used as needed. Discussed weaning off with patient. Finish out oral antibiotics as scheduled. No new antibiotics unless indicated at that time. (2) Neuropathic ulcer of foot: Qualifiers: Laterality: right Non-pressure ulcer stage: with fat layer exposed Qualified Code(s): L97.512 - Non-pressure chronic ulcer of other part of right foot with fat layer exposed Code(s): L97.509 - Non-pressure chronic ulcer of other part of unspecified foot with unspecified severity Status: Acute (3) Atrial fibrillation with controlled ventricular rate: Code(s): I48.91 - Unspecified atrial fibrillation Status: Acute Assessment and Plan: Decreased blood flow to the toes and diminished pulses bilaterally. Recommend NAY/TBI to evaluate for lower extremity arterial blood flow. Subjective Subjective Date/Time Seen: 09/30/20 08:40 Follow-up [facility] wound clinic for left foot necrotizing fasciitis. Eleven days status post debridement with application graft. Patient reports no interval complaints. He is on oral antibiotics. Exam Const: General: comfortable and no acute distress Nutritional Appearance: well nourished Orientation/consciousness: patient oriented x3 Limitations: no limitations HENMT: Head: normocephalic and atraumatic Ears: external ears normal Face and sinus: face symmetric Mouth: Yes moist mucous membranes Eyes: General: appearance normal, both eyes and all related structures Eyelids: eyelids normal Conjunctivae: conjunctivae normal Sclera: sclerae normal Neck: Neck: supple and no JVD Resp: Effort & Inspection: normal respiratory effort Cardio: Jugular venous distension: no JVD Rate: regular rate Rhythm: regular rhythm GI: Inspection: non-distended GI Palp: Yes Soft to palpation and No Tenderness to palpation present (GI) Neuro: General: gait normal Cognition (Neuro): normal cognition Speech: normal speech Extrem: Left lower extremity: lower leg Details: erythema, tenderness and pitting edema Details: 2+, ankle (erythema ) Details: tenderness, swelling Details: diffusely, normal ROM and warmth and foot Details: tenderness (2nd/3rd Ray ), abnormal ROM of toe (2nd/3rd Ray ) Details: pain with active ROM Location: of the 2nd digit and of the 3rd digit, warmth, edema, ecchymosis, vascular exam (dopplered pedal pulse ) and motor-sensory exam (neuropathy ) two point discrimination abnormal and light-touch abnormal; abnormal capillary refill Other: Left foot splint removed. Mepilex 1 removed. Wound bed with graft in place, Incorporating nicely. No drainage noted. Decreased swelling throughout the foot and ankle, erythema improved. Negative Homans sign. Wound length 14 cm, width 4.5 cm. 2nd and 3rd Webspace improved healing with no depth. Improved viability 2nd, 3rd and 4th toe with good capillary refill. Psych: Mental Status: mental status grossly normal Affect: normal affect Thought content: Yes Normal thought content present Objective Data Meds/Results Medications: Active Medications Generic Name Dose Route Start Last Admin Trade Name Freq PRN Reason Stop Dose Admin Silver Nitrate 1 applic 09/14/20 12:50 Silvergel (Elta) 45 Ml TOPICAL 12/12/20 23:55 PRN PRN Wound Care Wound Care/Ced
--- NOTE | 2020-10-14 12:54 | PM.PNORT ---
Progress Note: A&P Assessment and Plan (1) Fall: Qualifiers: Encounter type: initial encounter Qualified Code(s): W19.XXXA - Unspecified fall, initial encounter Code(s): W19.XXXA - Unspecified fall, initial encounter Status: Acute Assessment and Plan: patient had an acute fall outside of the hospital today under the car port. He fell over his rolling scooter and has an abrasion on the left forehead, left elbow and left medial ankle. Discussed importance of safe with his rolling scooter in the future. All wounds were dressed today with silver gel and covered. Patient denies loss of consciousness. He denies joint pain. He has good range of motion of the elbow and of the ankle without pain. We will obtain radiographs of the left ankle in our outpatient clinic to insure no fracture is evident. (2) Necrotizing fasciitis of ankle and foot: Code(s): M72.6 - Necrotizing fasciitis Status: Acute Assessment and Plan: Patient is 3 weeks, 4 days status post debridement of left foot with application of graft. Dressing changed today. Wound with improvement in dimensions. Toes all appear viable at this time. New dressing placed. Wound dressed with silver gel, Marlen, Mepitel 1 in x-rays are. ABD and gauze roll then applied. Patient to continue with dressing changes 3 times weekly in the wound clinic. We will re-evaluate patient in approximately 1 week. Recommended continuation of nonweightbearing of the left lower extremity. Discussed safety precautions with knee scooter. (3) Neuropathic ulcer of foot: Qualifiers: Laterality: right Non-pressure ulcer stage: with fat layer exposed Qualified Code(s): L97.512 - Non-pressure chronic ulcer of other part of right foot with fat layer exposed Code(s): L97.509 - Non-pressure chronic ulcer of other part of unspecified foot with unspecified severity Status: Acute (4) Atrial fibrillation with controlled ventricular rate: Code(s): I48.91 - Unspecified atrial fibrillation Status: Acute Assessment and Plan: Decreased blood flow to the toes and diminished pulses bilaterally. Recommend NAY/TBI to evaluate for lower extremity arterial blood flow. (5) Left ankle pain: Qualifiers: Chronicity: acute Qualified Code(s): M25.572 - Pain in left ankle and joints of left foot Code(s): M25.572 - Pain in left ankle and joints of left foot Status: Inactive Assessment and Plan: Patient reports mild left ankle pain status post fall. Radiographs obtained in outpatient orthopedic clinic reveal no evidence of fracture, dislocation or acute abnormalities. Patient does have a medial ankle abrasion status post fall which was dressed with silver dome cover dry. Will continue to monitor. Reviewed signs and symptoms of worsening pain to report to the emergency room immediately. Patient verbalized understanding agrees with plan of care. Subjective Subjective Date/Time Seen: 10/14/20 12:54 60-year-old male follows up at the [facility] wound clinic for left foot necrotizing fasciitis. The patient is now 3 weeks, 4 days status post debridement with graft application. No new complaints however patient did have a fall under the car port on the way into the hospital this morning. He fell over his knee scooter and caused an abrasion to his head and inner ankle. He denies loss of consciousness. He denies ankle pain with inversion, eversion, dorsiflexion and plantar flexion. He is able to bear weight on the left lower extremity without pain. He denies no left elbow pain despite abrasion on the lateral aspect of the elbow as well. Review of Systems Constitutional: Constitutional: Reports no additional constitutional complaints, Denies excessive sweating and Denies fever(s) Eyes: Eyes: Reports no additional eye complaints and Denies change in vision ENT: Reports system reviewed and no additional complain
--- NOTE | 2020-10-17 08:03 | PCWOUND ---
Wocn NOte Patient called to cancel appointment for today due to emergency with daughter.
--- NOTE | 2020-10-21 12:02 | PM.IMHP ---
H&P: HPI History of Present Illness Date/Time: 10/21/20 12:02 follow-up visit [facility] outpatient in clinic left foot necrotizing fasciitis 3 months from original debridement 5 weeks application graft. Patient with intermittent swelling noted. He had follow-up with his hepatology physicians. Ultrasound show cirrhosis but new masses. They were concerned about his fluid. They restarted his diuretics placed Cipro Chief Complaint: Left foot necrotizing fasciitis Review of Systems Constitutional: Constitutional: Reports no additional constitutional complaints, Denies excessive sweating and Denies fever(s) Eyes: Eyes: Reports no additional eye complaints and Denies change in vision ENT: Reports system reviewed and no additional complaints, except as documented and Reports Normal hearing present Cardiovascular: Cardiovascular: Denies chest pain, Denies diaphoresis, Denies leg ulcers and Denies dyspnea on exertion Respiratory: Respiratory: Reports no additional respiratory complaints, Denies cough and Denies dyspnea on exertion Gastrointestinal: Gastrointestinal: Reports no additional gastrointestinal complaints, Denies abdominal pain, Denies constipation, Denies nausea and Denies vomiting Genitourinary: Genitourinary: Reports no additional male genitourinary complaints, Denies hematuria and Denies urinary frequency Musculoskeletal: Musculoskeletal: Reports as per HPI Integumentary/Breasts: Skin/Breast: Reports as per HPI Neurologic: Reports Normal hearing present Psychiatric: Psychiatric: Reports no additional psychiatric complaints Endocrine: Endocrine: Reports no additional endocrine complaints, Denies change in body appearance, Denies excessive sweating, Denies polyphagia, Denies polydipsia and Denies polyuria PMFSH Past Medical History Medical History Abscess of foot including toes Alcoholic cirrhosis of liver He has abstained from alcohol for at least 2 years as of July 2020. Essential hypertension Fall Gastroesophageal reflux disease Hyponatremia Left ankle pain Necrotizing fasciitis of ankle and foot Paroxysmal atrial fibrillation Surgical History Surgical History History of surgery on arm (~2012) ORIF right humerus fracture. History of surgery on wrist History of ventral hernia repair (~11/2013) Subsequent abdominal wall exploration with drainage of a seroma at the same site in 03/2014. Family History Family History Mother Hypertension Family history of diabetes mellitus in first degree relative Diabetes mellitus Father Family history of pancreatic cancer Social History Social History Social History: The patient lives alone in [place]. Retired from [employer]. He has a longstanding history of alcohol abuse and reports on August 19, 2020 his most recent drink was 2 weeks ago. He also endorses marijuana use intermittently in a social setting. He designates his daughter Shawna as his surrogate decision maker and wishes to be a full code. Smoking status: Never smoker Alcohol intake: former Substance use: current Substance use type: marijuana Other substance usage details: 08/15/20 Gender identity (if verbalized by the patient): Male Spiritual care concerns: No Meds Home Medications and Allergies Home Medications Medication Instructions Recorded Confirmed Type furosemide 40 mg tablet 40 mg PO DAILY tablet 08/19/19 10/19/20 History lactulose 10 gram/15 mL oral 5 ml PO TID ml 08/19/19 10/10/20 History solution omeprazole 20 mg capsule,delayed 40 mg PO BID cap 08/19/19 09/19/20 History release spironolactone 100 mg tablet 100 mg PO DAILY 08/19/19 10/19/20 History thiamine HCl (vitamin B1) 250 mg 250 mg PO DAILY 08/19/19 09/19/20 Histor
--- NOTE | 2020-10-28 10:41 | PM.PNORT ---
Progress Note: A&P Assessment and Plan (1) Necrotizing fasciitis of ankle and foot: Code(s): M72.6 - Necrotizing fasciitis Status: Acute Assessment and Plan: Patient follows up in [facility] wound clinic today 9 weeks, 1 day status post I&D of left foot necrotizing fasciitis and 5 weeks, 4 days status post graft application. Patient within prove min and lower extremity edema over the last 1 week. No signs of acute infection. Wound with continued improvement in dimensions. Wound redressed today. Silver gel and Marlen applied to dorsal forefoot wound covered with Mepitel One and an ABD pad. Antifungal surrounding. Medial ankle wound dressed with silver gel and Marlen and a Mepilex foam for pressure offloading. Patient to continue protected weight-bearing with a postop shoe. Patient follow-up in 1 week for re-evaluation. He will continue with dressing changes by the wound Clinic 3 times per week. (2) Abscess of foot including toes: Qualifiers: Laterality: left Qualified Code(s): L02.612 - Cutaneous abscess of left foot Code(s): L02.619 - Cutaneous abscess of unspecified foot Status: Acute (3) Neuropathic ulcer of foot: Qualifiers: Laterality: right Non-pressure ulcer stage: with fat layer exposed Qualified Code(s): L97.512 - Non-pressure chronic ulcer of other part of right foot with fat layer exposed Code(s): L97.509 - Non-pressure chronic ulcer of other part of unspecified foot with unspecified severity Status: Acute Subjective Subjective Date/Time Seen: 10/28/20 10:41 Interval history: Patient presents in [facility] wound clinic today 9 weeks, 1 day status post debridement of necrotizing fasciitis in 5 weeks, 4 days status post application of graft. Patient denies fever, chills, night sweats, nausea, vomiting or diarrhea. Pain well controlled. Patient is noticing marked improvement in lower extremity edema. He has been restarted on diuretics. No new concerns. Review of Systems Constitutional: Constitutional: Reports no additional constitutional complaints, Denies excessive sweating and Denies fever(s) Eyes: Eyes: Reports no additional eye complaints and Denies change in vision ENT: Reports system reviewed and no additional complaints, except as documented and Reports Normal hearing present Cardiovascular: Cardiovascular: Denies chest pain, Denies diaphoresis, Denies leg ulcers and Denies dyspnea on exertion Respiratory: Respiratory: Reports no additional respiratory complaints, Denies cough and Denies dyspnea on exertion Gastrointestinal: Gastrointestinal: Reports no additional gastrointestinal complaints, Denies abdominal pain, Denies constipation, Denies nausea and Denies vomiting Genitourinary: Genitourinary: Reports no additional male genitourinary complaints, Denies hematuria and Denies urinary frequency Musculoskeletal: Musculoskeletal: Reports as per HPI Integumentary/Breasts: Skin/Breast: Reports as per HPI Neurologic: Reports Normal hearing present Psychiatric: Psychiatric: Reports no additional psychiatric complaints Endocrine: Endocrine: Reports no additional endocrine complaints, Denies change in body appearance, Denies excessive sweating, Denies polyphagia, Denies polydipsia and Denies polyuria Exam Const: General: comfortable and no acute distress Nutritional Appearance: well nourished Orientation/consciousness: patient oriented x3 Limitations: no limitations HENMT: Head: normocephalic and atraumatic Ears: external ears normal Face and sinus: face symmetric Mouth: Yes moist mucous membranes Eyes: General: appearance normal, both eyes and all related structures Eyelids: eyelids normal Conjunctivae: conjunctivae normal Sclera: sclerae normal Neck: Neck: supple and no JVD Resp: Effort & Inspection: normal respiratory effort Cardio: Jugular venous distension: no JVD Rate: regular rate Rhythm: regular rhythm GI: Inspecti
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
--- NOTE | 2020-11-18 08:15 | PM.IMHP ---
H&P: HPI History of Present Illness Date/Time: 11/18/20 08:15 Chief Complaint: Left foot necrotizing fasciitis Narrative: returns for re-evaluation [facility] outpatient wound clinic. Two months status post application of graft. Three months status post original debridement. No interim complaints. We switched from the mepitel one to transfer at last visit. Review of Systems Constitutional: Constitutional: Reports no additional constitutional complaints, Denies excessive sweating and Denies fever(s) Eyes: Eyes: Reports no additional eye complaints and Denies change in vision ENT: Reports system reviewed and no additional complaints, except as documented and Reports Normal hearing present Cardiovascular: Cardiovascular: Denies chest pain, Denies diaphoresis, Denies leg ulcers and Denies dyspnea on exertion Respiratory: Respiratory: Reports no additional respiratory complaints, Denies cough and Denies dyspnea on exertion Gastrointestinal: Gastrointestinal: Reports no additional gastrointestinal complaints, Denies abdominal pain, Denies constipation, Denies nausea and Denies vomiting Genitourinary: Genitourinary: Reports no additional male genitourinary complaints, Denies hematuria and Denies urinary frequency Musculoskeletal: Musculoskeletal: Reports as per HPI Integumentary/Breasts: Skin/Breast: Reports as per HPI Neurologic: Reports Normal hearing present Psychiatric: Psychiatric: Reports no additional psychiatric complaints Endocrine: Endocrine: Reports no additional endocrine complaints, Denies change in body appearance, Denies excessive sweating, Denies polyphagia, Denies polydipsia and Denies polyuria [facility] Past Medical History Medical History Abscess of foot including toes Alcoholic cirrhosis of liver He has abstained from alcohol for at least 2 years as of July 2020. Essential hypertension Fall Gastroesophageal reflux disease Hyponatremia Left ankle pain Necrotizing fasciitis of ankle and foot Paroxysmal atrial fibrillation Surgical History Surgical History History of surgery on arm (~2012) ORIF right humerus fracture. History of surgery on wrist History of ventral hernia repair (~11/2013) Subsequent abdominal wall exploration with drainage of a seroma at the same site in 03/2014. Family History Family History Mother Hypertension Family history of diabetes mellitus in first degree relative Diabetes mellitus Father Family history of pancreatic cancer Social History Social History Social History: The patient lives alone in [place]. Retired from [employer]. He has a longstanding history of alcohol abuse and reports on August 19, 2020 his most recent drink was 2 weeks ago. He also endorses marijuana use intermittently in a social setting. He designates his daughter Shawna as his surrogate decision maker and wishes to be a full code. Smoking status: Never smoker Alcohol intake: former Substance use: current Substance use type: marijuana Other substance usage details: 08/15/20 Gender identity (if verbalized by the patient): Male Spiritual care concerns: No Meds Home Medications and Allergies Home Medications Medication Instructions Recorded Confirmed Type lactulose 10 gram/15 mL oral 5 ml PO TID ml 08/19/19 10/25/20 History solution omeprazole 20 mg capsule,delayed 40 mg PO BID cap 08/19/19 10/25/20 History release spironolactone 100 mg tablet 100 mg PO DAILY 08/19/19 10/25/20 History thiamine HCl (vitamin B1) 250 mg 250 mg PO DAILY 08/19/19 10/25/20 History tablet lidocaine HCl [Lidocaine Viscous] 1 applic MUCOUS MEMBRANE BID PRN 10/10/20 10/25/20 History nadolol 40 mg PO DAILY 10/10/20 10/25/20 History ciprofloxacin HCl 500
--- NOTE | 2020-11-25 08:59 | PM.IMHP ---
H&P: HPI History of Present Illness Date/Time: 11/25/20 08:59 60 year old male returns for re-evaluation to the [facility] outpatient wound clinic. Two months status post application of graft. Three months status post original debridement. No interim complaints. Patient has been performing daily dressing changes at home independently without problems. He denies fever, chills, night sweats, nausea, vomiting or diarrhea. Chief Complaint: Left foot wound. Review of Systems Constitutional: Constitutional: Reports no additional constitutional complaints, Denies excessive sweating and Denies fever(s) Eyes: Eyes: Reports no additional eye complaints and Denies change in vision ENT: Reports system reviewed and no additional complaints, except as documented and Reports Normal hearing present Cardiovascular: Cardiovascular: Denies chest pain, Denies diaphoresis, Denies leg ulcers and Denies dyspnea on exertion Respiratory: Respiratory: Reports no additional respiratory complaints, Denies cough and Denies dyspnea on exertion Gastrointestinal: Gastrointestinal: Reports no additional gastrointestinal complaints, Denies abdominal pain, Denies constipation, Denies nausea and Denies vomiting Genitourinary: Genitourinary: Reports no additional male genitourinary complaints, Denies hematuria and Denies urinary frequency Musculoskeletal: Musculoskeletal: Reports as per HPI Integumentary/Breasts: Skin/Breast: Reports as per HPI Neurologic: Reports Normal hearing present Psychiatric: Psychiatric: Reports no additional psychiatric complaints Endocrine: Endocrine: Reports no additional endocrine complaints, Denies change in body appearance, Denies excessive sweating, Denies polyphagia, Denies polydipsia and Denies polyuria PMFSH Past Medical History Medical History Abscess of foot including toes Alcoholic cirrhosis of liver He has abstained from alcohol for at least 2 years as of July 2020. Essential hypertension Fall Gastroesophageal reflux disease Hyponatremia Left ankle pain Necrotizing fasciitis of ankle and foot Paroxysmal atrial fibrillation Surgical History Surgical History History of surgery on arm (~2012) ORIF right humerus fracture. History of surgery on wrist History of ventral hernia repair (~11/2013) Subsequent abdominal wall exploration with drainage of a seroma at the same site in 03/2014. Family History Family History Mother Hypertension Family history of diabetes mellitus in first degree relative Diabetes mellitus Father Family history of pancreatic cancer Social History Social History (Updated 11/25/20 @ 09:01 by JAVAN Shah) Social History: The patient lives alone in [place]. Retired from [employer]. He has a longstanding history of alcohol abuse. He also endorses marijuana use intermittently in a social setting. He designates his daughter Shawna as his surrogate decision maker and wishes to be a full code. Smoking status: Never smoker Alcohol intake: former Substance use: current Substance use type: marijuana Other substance usage details: 08/15/20 Gender identity (if verbalized by the patient): Male Spiritual care concerns: No Meds Home Medications and Allergies Home Medications Medication Instructions Recorded Confirmed Type lactulose 10 gram/15 mL oral 5 ml PO TID ml 08/19/19 10/25/20 History solution omeprazole 20 mg capsule,delayed 40 mg PO BID cap 08/19/19 10/25/20 History release spironolactone 100 mg tablet 100 mg PO DAILY 08/19/19 10/25/20 History thiamine HCl (vitamin B1) 250 mg 250 mg PO DAILY 08/19/19 10/25/20 History tablet lidocaine HCl [Lidocaine Viscous] 1 applic MUCOUS MEMBRANE BID PRN 10/10/20 10/25/20 History nadolol 40 mg PO DAILY 10/10/20 10/25/20 History
== END 2020-11-27 23:59 | disposition home or self-care (01) ==
LOC: ANHWOC 07:25
PROVIDERS: Family Provider Internal Medicine; PCP Internal Medicine; Referring Provider Orthopaedic Surgery; Visit Provider Nurse Practitioner Family
DX: L97.529 Non-pressure chronic ulcer of other part of left foot with unspecified severity (principal)
CPT/HCPCS: 11042; 99212; 99213; A9270; G0463

== ENCOUNTER → 2020-12-05 02:20 | Outpatient (CLI) | payer MEDICARE, SELFPAY ==
[2020-12-05 19:19] LABS: SARS-CoV-2 RNA PCR Negative
== END ==
PROVIDERS: PCP Internal Medicine; Visit Provider Orthopaedic Surgery
DX: Z01.812 Encounter for preprocedural laboratory examination (principal); Z20.822 Contact with and (suspected) exposure to COVID-19
CPT/HCPCS: C9803; U0003; U0005

== ENCOUNTER 2020-12-08 00:48 | Day surgery (SDC) | payer MEDICARE, SELFPAY ==
[2020-12-05 10:21] VITALS: BMI 23.7
[2020-12-08] VITALS (7 sets, daily range): BP systolic 89–120; BP diastolic 61–85; PULSE 50–60; RESP 10–18; TEMP 36–36.2; O2SAT 99–100; BMI 23.8
--- NOTE | 2020-12-08 07:21 | WPDHPUPDATE1 ---
History and Physical Update Update Date/Time: 12/08/20 07:21 History and Physical has been reviewed, including an updated exam of the patient. There are NO changes in the patient's condition. Covid test negative. Risks, benefits, and alternatives have been discussed and questions answered. Patient agrees to proceed with procedure.
[2020-12-08] MEDS: LACTATED RINGERS 1,000 ML 30 ML IV CONT (07:42)
[2020-12-08] MEDS: ACETAMINOPHEN 500 MG TABLET 1000 MG PO (07:43)
[2020-12-08] MEDS: KETOROLAC 15 MG/ML VIAL (*BKC) IV PUSH (07:43)
[2020-12-08 07:52] LABS: Sodium 135 mmol/L (137-145)
--- NOTE | 2020-12-08 07:55 | WPDANESEPPF ---
Anes - Initial Pre Proc Eval Procedure: Operation Date: 12/08/20 08:30 Proposed Procedures p Left Foot Dorsal Necrotizing Fasciitis Wound Debridement with Graft Application - Blair Negron MD Date/Time: 12/08/20 07:55 Surgeon: Blair Negron MD Pre Op Diagnosis: left foot dorsal wound,s/p fascitis Patient Data Age: 60 Gender: M Height: 6 ft 2 in Weight: 84.1 kg Last Vital Signs Temp 96.8 F L 12/08/20 07:49 Pulse 60 12/08/20 07:49 Resp 18 12/08/20 07:49 BP 89/61 L 12/08/20 07:49 Pulse Ox 100 12/08/20 07:49 Allergies Allergy/AdvReac Type Severity Reaction Status Date / Time No Known Allergies Allergy Unknown Verified 12/08/20 07:23 Home Medications Medication Instructions Recorded Confirmed Type lactulose 10 gram/15 mL oral 5 ml PO DAILY ml 08/19/19 12/08/20 History solution omeprazole 20 mg capsule,delayed 40 mg PO BID cap 08/19/19 12/08/20 History release spironolactone 100 mg tablet 100 mg PO DAILY 08/19/19 12/08/20 History thiamine HCl (vitamin B1) 250 mg 250 mg PO DAILY 08/19/19 12/08/20 History tablet nadolol 40 mg PO DAILY 10/10/20 12/08/20 History furosemide 40 mg tablet 40 mg PO BID tablet 10/25/20 12/08/20 History ciprofloxacin HCl 500 mg tablet 500 mg PO Q12H #10 tablet 12/02/20 12/08/20 Rx oxycodone 5 mg capsule 5 mg PO Q8H PRN #20 cap 12/02/20 12/08/20 Rx Laboratory Tests 12/08/20 07:41 Sodium 135 mmol/L L mmol/L (137-145) Patient hx anesthesia problems: none Family hx anesthesia problems: none PMFSH Past Medical History Medical History Abscess of foot including toes Alcoholic cirrhosis of liver He has abstained from alcohol for at least 2 years as of July 2020. Essential hypertension Fall Gastroesophageal reflux disease Hyponatremia Left ankle pain Necrotizing fasciitis of ankle and foot Paroxysmal atrial fibrillation Surgical History Surgical History History of surgery on arm (~2012) ORIF right humerus fracture. History of surgery on wrist History of ventral hernia repair (~11/2013) Subsequent abdominal wall exploration with drainage of a seroma at the same site in 03/2014. Family History Family History Mother Hypertension Family history of diabetes mellitus in first degree relative Diabetes mellitus Father Family history of pancreatic cancer Social History Social History Social History: The patient lives alone in [place]. Retired from [employer]. He has a longstanding history of alcohol abuse. He also endorses marijuana use intermittently in a social setting. He designates his daughter Shawna as his surrogate decision maker and wishes to be a full code. Smoking status: Never smoker Alcohol intake: former Alcohol use details: QUIT EXCESSIVE ALCOHOL 03/2018, QUIT ALL TOGETHER ABOUT 6 WEEKS AGO. Substance use: current Substance use type: marijuana Other substance usage details: SMOKE, EDIBLE Last use: 11/14/20 Living arrangements: alone Gender identity (if verbalized by the patient): Male Spiritual care concerns: No Anes - Eval Final PreProcedure Day of Procedure 12/08/20 07:55 Patient weight: normal Heart: regular rate and rhythm Lungs: clear to auscultation Airway: Mallampati scale class II Neurological: alert and oriented Last oral intake: >/= 8 hours ASA classification: IV Emergent: no Anesthetic plan: proceed Anesthesia type and monitoring: general LMA and standard monitoring Informed Consent: The patient's anesthetic plan and its attendant risks and benefits were discussed with the patient/family/POA. Questions were solicited and answers provided to the satisfaction of the patient/family/POA.
--- NOTE | 2020-12-08 07:57 | SUR.PREOP ---
0710; DR SOTO STATES DO NOT SHAVE LT FOOT AND LEAVE DRESSING INTACT.
--- NOTE | 2020-12-08 08:13 | SUR.PREOP ---
DR CHURCH NOTIFIED OF LOW BP.
[2020-12-08] MEDS: ceFAZolin 2 GM/D5W 50 ML 2 GM/50 ML BAG IVPB (08:17)
[2020-12-08] MEDS: BUPIVACAINE HCL 0.5% PF 30 ML VIAL INFILTRATE (08:59)
[2020-12-08] MEDS: VANCOMYCIN HCL 1,000 MG VIAL 1000 MG TOPICAL (09:00)
--- NOTE | 2020-12-08 09:36 | P.OP_ITS ---
Procedure Note - Detailed Date of procedure: 12/08/20 Pre-op diagnosis: left foot dorsal wound,s/p fascitis Post-op diagnosis: same Procedure performed: Excisional debridement of left foot ulcer including muscle with application of graft, wound measures 11.2 x 2.5 cm Description of procedure: Indications: Patient is a 60-year-old gentleman with diabetes, neuropathy and cirrhosis who is status post necrotizing fasciitis of the left dorsal foot. Patient with poor wound healing. Presents now for debridement with graft application. What was done: Patient identified in the preoperative holding. Informed consent given. Operative extremity marked. Patient received intravenous antibiotics. Patient brought to the operating room where underwent general anesthetic by anesthesia team. Positioned supine on operating room table. Time-out performed confirming the patient, site of the surgery and the plan. Left foot prepped draped usual sterile surgical fashion using a Betadine prep solution. The previous ankle ulcer was noted to be well healed at this time. No further debridement was necessary for the ankle. The left foot was then addressed. Fifteen blade knife used to sharply excise devitalized tissue from the wound including skin, subcutaneous tissue and muscle. Nonviable tissue excised and passed off. Good viable tissue left in place. Wound thoroughly irrigated antibiotic solution. Graft application then performed. 3 cc of amniotic allograft suspension injected into the wound and surrounding tissue. 500 mg of micro matrix granulated is in a graft then applied to the wound bed. This was then covered with the Integra bilayer allograft which was sutured into place with 3 0 Monocryl interrupted suture. Sterile dressing applied. The patient was then woken from anesthesia, extubated and taken to the recovery room in stable condition. All sponge, needle, instrument counts were correct at the end of the case. Implants: Amnion matrix 3 cc amniotic allograft suspension, micro matrix 500 mg xenograft, 5.5 cm Integra bilayer xenograft. Anesthesia: GLMA Surgeon: Blair Negron MD Planer Feeder: pharmacy sales assistant Estimated blood loss (mL): 5 Tourniquet time (min): 0 Drains: No Packing: No Pathology: none sent Complications: None Condition: stable Disposition: PACU Findings: Left dorsal foot wound measures 11.2 cm length by 2.5 cm width by 0.2 cm depth
[2020-12-08] MEDS: fentaNYL CITRATE INJ (*CRX) 100 MCG/2 ML VIAL 25 MCG IV PUSH ×4 (09:58→10:06)
== END 2020-12-08 11:06 | disposition home or self-care (01) ==
PROVIDERS: Anesthesiology; PCP Internal Medicine; Visit Provider Orthopaedic Surgery
PROC: (CPT 11043; principal; 2020-12-08 08:30)
DX: E11.621 Type 2 diabetes mellitus with foot ulcer (principal); L97.512 Non-pressure chronic ulcer of other part of right foot with fat layer exposed; K70.30 Alcoholic cirrhosis of liver without ascites; I10 Essential (primary) hypertension; K21.9 Gastro-esophageal reflux disease without esophagitis; I48.0 Paroxysmal atrial fibrillation; Z79.02 Long term (current) use of antithrombotics/antiplatelets; Z79.891 Long term (current) use of opiate analgesic; F12.90 Cannabis use, unspecified, uncomplicated
CPT/HCPCS: 11043; 11046; 15275; 15276; 36415; 84295; A9270; C9803; J0690; J1885; J2405; J2704; J3010; J3370; J7120; Q4139; U0003; U0005

== ENCOUNTER → 2020-12-31 01:45 | Outpatient (CLI) | payer MEDICARE, SELFPAY ==
[2020-12-31 19:37] LABS: SARS-CoV-2 RNA PCR Negative
== END ==
PROVIDERS: PCP Internal Medicine; Visit Provider Orthopaedic Surgery
DX: Z01.812 Encounter for preprocedural laboratory examination (principal); Z20.822 Contact with and (suspected) exposure to COVID-19
CPT/HCPCS: C9803; U0003; U0005

== ENCOUNTER 2021-01-02 01:52 | Day surgery (SDC) | payer MEDICARE, SELFPAY ==
[2020-12-30 10:35] VITALS: BMI 23.8
[2021-01-02] VITALS (9 sets, daily range): BP systolic 90–129; BP diastolic 52–80; PULSE 56–69; RESP 10–20; TEMP 36.3–36.7; O2SAT 100
[2021-01-02] MEDS: ACETAMINOPHEN 500 MG TABLET 1000 MG PO (12:10)
[2021-01-02] MEDS: LACTATED RINGERS 1,000 ML 30 ML IV CONT ×2 (12:19→14:38)
--- NOTE | 2021-01-02 12:25 | WPDANESEPPF ---
Anes - Initial Pre Proc Eval Procedure: Operation Date: 01/02/21 13:30 Proposed Procedures p Debridement Left Foot Ulcer, - Blair Negron MD s Possible Second and Third Toe Ray Amputation - Blair Negron MD Date/Time: 01/02/21 12:25 Surgeon: Blair Negron MD Pre Op Diagnosis: necrotizing fasciitis left foot Patient Data Age: 60 Gender: M Height: 6 ft 2 in Weight: 79 kg Last Vital Signs Temp 97.4 F L 01/02/21 12:22 Pulse 59 L 01/02/21 12:22 BP 90/54 L 01/02/21 12:22 Pulse Ox 100 01/02/21 12:22 Allergies Allergy/AdvReac Type Severity Reaction Status Date / Time No Known Allergies Allergy Unknown Verified 01/02/21 11:57 Home Medications Medication Instructions Recorded Confirmed Type lactulose 10 gram/15 mL oral 5 ml PO DAILY ml 08/19/19 01/02/21 History solution omeprazole 20 mg capsule,delayed 40 mg PO BID cap 08/19/19 01/02/21 History release spironolactone 100 mg tablet 100 mg PO DAILY 08/19/19 01/02/21 History thiamine HCl (vitamin B1) 250 mg 250 mg PO DAILY 08/19/19 01/02/21 History tablet nadolol 40 mg PO DAILY 10/10/20 01/02/21 History furosemide 40 mg tablet 40 mg PO BID tablet 10/25/20 01/02/21 History ciprofloxacin HCl 500 mg tablet 500 mg PO Q12H #10 tablet 12/02/20 01/02/21 Rx oxycodone 5 mg capsule 5 mg PO Q8H PRN #20 cap 12/27/20 01/02/21 Rx Patient hx anesthesia problems: none Family hx anesthesia problems: none PMFSH Past Medical History Medical History Abscess of foot including toes Alcoholic cirrhosis of liver He has abstained from alcohol for at least 2 years as of July 2020. Essential hypertension Fall Gastroesophageal reflux disease Hyponatremia Left ankle pain Necrotizing fasciitis of ankle and foot Paroxysmal atrial fibrillation Surgical History Surgical History History of surgery on arm (~2012) ORIF right humerus fracture. History of surgery on wrist History of ventral hernia repair (~11/2013) Subsequent abdominal wall exploration with drainage of a seroma at the same site in 03/2014. Family History Family History Mother Hypertension Family history of diabetes mellitus in first degree relative Diabetes mellitus Father Family history of pancreatic cancer Social History Social History Social History: The patient lives alone in [place]. Retired from [employer]. He has a longstanding history of alcohol abuse. He also endorses marijuana use intermittently in a social setting. He designates his daughter Shawna as his surrogate decision maker and wishes to be a full code. Smoking status: Never smoker Alcohol intake: former Alcohol use details: QUIT EXCESSIVE ALCOHOL 03/2018, QUIT ALL ALCOHOL ABOUT END September Substance use: current Substance use type: marijuana Other substance usage details: SMOKE, EDIBLE Last use: 11/30/20 Living arrangements: alone Spiritual care concerns: No Anes - Eval Final PreProcedure Day of Procedure 01/02/21 12:25 Patient weight: normal Heart: regular rate and rhythm Lungs: clear to auscultation Airway: Mallampati scale class II Neurological: alert and oriented Last oral intake: >/= 8 hours ASA classification: IV Emergent: no Anesthetic plan: proceed Anesthesia type and monitoring: general LMA and standard monitoring Informed Consent: The patient's anesthetic plan and its attendant risks and benefits were discussed with the patient/family/POA. Questions were solicited and answers provided to the satisfaction of the patient/family/POA.
[2021-01-02] MEDS: KETOROLAC 15 MG/ML VIAL (*BKC) IV PUSH (13:09)
--- NOTE | 2021-01-02 13:18 | WPDHPUPDATE1 ---
History and Physical Update Update Date/Time: 01/02/21 13:18 History and Physical has been reviewed, including an updated exam of the patient. There are NO changes in the patient's condition. Covid test negative. Risks, benefits, and alternatives have been discussed and questions answered. Patient agrees to proceed with procedure.
[2021-01-02] MEDS: ceFAZolin 2 GM/D5W 50 ML 2 GM/50 ML BAG IVPB (13:24)
[2021-01-02] MEDS: BUPIVACAINE HCL 0.5% PF 30 ML VIAL INFILTRATE (13:51)
--- NOTE | 2021-01-02 14:55 | W.PM.PROC2 ---
Procedure Note - Detailed Date of Procedure 01/02/21 Pre-op Diagnosis necrotizing fasciitis left foot Gangrene left 2nd and 3rd toe with diabetic foot ulcer Post-op Diagnosis same Procedure Performed amputation left 2nd and 3rd toe, debridement diabetic foot ulcer 8 x 3 cm, application of synthetic skin graft 5 x 5 cm. Surgeon Blair Negron MD [employer] 1st seismic survey assistant Anesthesia general Indications 60-year-old gentleman with peripheral neuropathy and liver failure with previous necrotizing fasciitis of the left foot. Has undergone several debridements and graft applications. Now with gangrene of the 2nd and 3rd toe of the left foot as well as persistent neuropathic ulcer. Presents for operative treatment. Findings Exposed proximal phalanx and proximal interphalangeal joint of the 2nd and 3rd toe with gangrene. Description of Procedure What was done: Patient identified in the preoperative holding. Informed consent given. Operative extremity marked. Patient received intravenous antibiotics. Patient brought to the operating room where underwent general anesthetic by anesthesia team. Positioned supine on operating room table. Time-out performed confirming the patient, site of the surgery and the plan. Left foot prepped draped usual sterile surgical fashion using a Betadine prep solution. Second and 3rd toes were examined and there was noted to be exposed proximal phalanx bone and proximal interphalangeal joint with necrosis of the bone and the distal aspect of both 2nd and 3rd toes. Neuropathic ulcer from the previous necrotizing fasciitis on the dorsum of the left foot measured 8 x 3 cm with 1 mm depth. The toes were not felt to be salvageable. There is moderate edema and swelling of the lower leg and foot compared to the right side. No evidence of infection. Esmarch bandage was secured at the leg as a tourniquet. Fifteen blade knife used to ellipse out the plantar skin from the 2nd toe. We then transected the metatarsophalangeal joint soft tissue and ligaments and removed the 2nd toe. Cartilage surface from the metatarsal was removed. Plantar condyle was removed. Wound was thoroughly irrigated antibiotic solution. The plantar skin was then brought up and closed over the distal aspect of the wound with 3 O nylon interrupted suture. Fifteen blade knife used to ellipse out the plantar skin from the 3rd toe. We then transected the metatarsophalangeal joint soft tissue and ligaments and removed the 3rd toe. Cartilage surface from the metatarsal was removed. Plantar condyle was removed. Wound was thoroughly irrigated antibiotic solution. The plantar skin was then brought up and closed over the distal aspect of the wound with 3 O nylon interrupted suture. Fifteen blade knife he used to debride the skin, subcutaneous tissue and muscle from the neuropathic ulcer. Any devitalized or nonviable tissue was sharply excised and passed off. Wound thoroughly irrigated antibiotic solution. Micronized skin and soft tissue replacement was then prepared on the back table using sailing. This was then applied to the wound bed. This was covered with the bilayer wound matrix synthetic skin graft, 5 x 5 cm which was sutured into place with 3 0 Monocryl interrupted suture. Sterile dressing applied. The patient was then woken from anesthesia, extubated and taken to the recovery room in stable condition. All sponge, needle, instrument counts were correct at the end of the case. Implants Integra meshed bilayer wound matrix 5 cm x 5 cm, powder skin and soft tissue replacement. Estimated Blood Loss -5.0 Tourniquet Time 40 Drains No Packing No Pathology yes ( Second and 3rd toe specimen) Complications None Condition stable Disposition PACU
--- NOTE | 2021-01-02 15:08 | SUR.PHASEI ---
O2 removed at 1505.
[2021-01-02] MEDS: oxyCODONE HCL (*CRX) 5 MG TAB IR PO (16:24)
== END 2021-01-02 16:45 | disposition home or self-care (01) ==
PROVIDERS: PCP Internal Medicine; Visit Provider Orthopaedic Surgery
PROC: (CPT 28820; principal; 2021-01-02 13:30)
PROC: (CPT 28820; 2021-01-02 13:30)
DX: M72.6 Necrotizing fasciitis (principal); E11.52 Type 2 diabetes mellitus with diabetic peripheral angiopathy with gangrene; L03.032 Cellulitis of left toe; E11.69 Type 2 diabetes mellitus with other specified complication; M86.172 Other acute osteomyelitis, left ankle and foot; E11.621 Type 2 diabetes mellitus with foot ulcer; E11.42 Type 2 diabetes mellitus with diabetic polyneuropathy; I10 Essential (primary) hypertension; K21.9 Gastro-esophageal reflux disease without esophagitis; E87.1 Hypo-osmolality and hyponatremia; F12.90 Cannabis use, unspecified, uncomplicated; I48.0 Paroxysmal atrial fibrillation; K70.30 Alcoholic cirrhosis of liver without ascites
CPT/HCPCS: 28820 ×2; 15275; 15004; 88305; 88311; A9270; C9803; J0690; J1100; J1885; J2250; J2370; J2405; J2704; J3010; J7120; U0003; U0005

== ENCOUNTER 2021-02-02 02:02 | Day surgery (SDC) | payer MEDICARE, SELFPAY ==
[2021-02-01 08:16] VITALS: BMI 22.4
--- NOTE | 2021-02-01 10:29 | WPDANESEPPF ---
Anes - Initial Pre Proc Eval Procedure: Operation Date: 02/02/21 12:00 Proposed Procedures p Debridement Left Foot, Application of Graft - Blair Negron MD Date/Time: 02/01/21 10:29 Surgeon: Blair Negron MD Pre Op Diagnosis: left foot necrotizing facsiitis Patient Data Age: 60 Gender: M Height: 1.88 m Weight: 79 kg Allergies Allergy/AdvReac Type Severity Reaction Status Date / Time No Known Allergies Allergy Unknown Verified 02/02/21 10:52 Home Medications Medication Instructions Recorded Confirmed Type lactulose 10 gram/15 mL oral 5 ml PO DAILY ml 08/19/19 02/01/21 History solution omeprazole 20 mg capsule,delayed 40 mg PO BID cap 08/19/19 02/01/21 History release spironolactone 100 mg tablet 100 mg PO DAILY 08/19/19 02/01/21 History thiamine HCl (vitamin B1) 250 mg 250 mg PO DAILY 08/19/19 02/01/21 History tablet nadolol 40 mg PO DAILY 10/10/20 02/02/21 History furosemide 40 mg tablet 40 mg PO BID tablet 10/25/20 02/01/21 History ciprofloxacin HCl 500 mg tablet 500 mg PO Q12H #10 tablet 12/02/20 02/02/21 Rx gabapentin 600 mg PO HS 01/24/21 02/01/21 History gabapentin 300 mg PO BID #20 cap 02/02/21 Rx oxycodone 5 mg PO Q8H PRN #20 cap 02/02/21 Rx Patient hx anesthesia problems: none Family hx anesthesia problems: none PMFSH Past Medical History Medical History Abscess of foot including toes Alcoholic cirrhosis of liver He has abstained from alcohol for at least 2 years as of July 2020. Essential hypertension Fall Gastroesophageal reflux disease Hyponatremia Left ankle pain Necrotizing fasciitis of ankle and foot Paroxysmal atrial fibrillation Surgical History Surgical History History of surgery on arm (~2012) ORIF right humerus fracture. History of surgery on wrist History of ventral hernia repair (~11/2013) Subsequent abdominal wall exploration with drainage of a seroma at the same site in 03/2014. Family History Family History Mother Hypertension Family history of diabetes mellitus in first degree relative Diabetes mellitus Father Family history of pancreatic cancer Social History Social History Social History: The patient lives alone in [place]. Retired from [employer]. He has a longstanding history of alcohol abuse. He also endorses marijuana use intermittently in a social setting. He designates his daughter Shawna as his surrogate decision maker and wishes to be a full code. Smoking status: Never smoker Alcohol intake: former Drinks per week: 1 Alcohol use details: QUIT EXCESSIVE ETOH 2018 Substance use: current Substance use type: marijuana Other substance usage details: EDIBLES, SMOKES MARIJUANA Last use: 12/27/20 Gender identity (if verbalized by the patient): Male Spiritual care concerns: No Anes - Eval Final PreProcedure Day of Procedure 02/01/21 10:29 Patient weight: normal Heart: regular rate and rhythm Lungs: clear to auscultation and normal air movement Airway: Mallampati scale class II Neurological: alert and oriented Last oral intake: >/= 8 hours ASA classification: IV Emergent: no Anesthetic plan: proceed Anesthesia type and monitoring: general LMA and standard monitoring Informed Consent: The patient's anesthetic plan and its attendant risks and benefits were discussed with the patient/family/POA. Questions were solicited and answers provided to the satisfaction of the patient/family/POA.
--- NOTE | 2021-02-01 16:12 | PM.IMHP ---
H&P: HPI History of Present Illness Date/Time: 02/01/21 16:12 Chief Complaint: left foot necrotizing fasciitis, neuropathy Narrative: 60-year-old gentleman with a history of necrotizing fasciitis of the left foot treated with previous debridements and graft application. Underwent amputation of the 2nd and 3rd toe. Now with loose skin flap which has become necrotic over the distal aspect of the foot as well as nonhealing ulcer. Presents for operative treatment. Review of Systems Constitutional: Constitutional: Reports no additional constitutional complaints, Denies excessive sweating and Denies fever(s) Eyes: Eyes: Reports no additional eye complaints and Denies change in vision ENT: Reports system reviewed and no additional complaints, except as documented and Reports Normal hearing present Cardiovascular: Cardiovascular: Denies chest pain, Denies diaphoresis, Denies leg ulcers and Denies dyspnea on exertion Respiratory: Respiratory: Reports no additional respiratory complaints, Denies cough and Denies dyspnea on exertion Gastrointestinal: Gastrointestinal: Reports no additional gastrointestinal complaints, Denies abdominal pain, Denies constipation, Denies nausea and Denies vomiting Genitourinary: Genitourinary: Reports no additional male genitourinary complaints, Denies hematuria and Denies urinary frequency Musculoskeletal: Musculoskeletal: Reports as per HPI Integumentary/Breasts: Skin/Breast: Reports as per HPI Neurologic: Reports Normal hearing present Psychiatric: Psychiatric: Reports no additional psychiatric complaints Endocrine: Endocrine: Reports no additional endocrine complaints, Denies change in body appearance, Denies excessive sweating, Denies polyphagia, Denies polydipsia and Denies polyuria PMFSH Past Medical History Medical History Abscess of foot including toes Alcoholic cirrhosis of liver He has abstained from alcohol for at least 2 years as of July 2020. Essential hypertension Fall Gastroesophageal reflux disease Hyponatremia Left ankle pain Necrotizing fasciitis of ankle and foot Paroxysmal atrial fibrillation Surgical History Surgical History History of surgery on arm (~2012) ORIF right humerus fracture. History of surgery on wrist History of ventral hernia repair (~11/2013) Subsequent abdominal wall exploration with drainage of a seroma at the same site in 03/2014. Family History Family History Mother Hypertension Family history of diabetes mellitus in first degree relative Diabetes mellitus Father Family history of pancreatic cancer Social History Social History Social History: The patient lives alone in [place]. Retired from [employer]. He has a longstanding history of alcohol abuse. He also endorses marijuana use intermittently in a social setting. He designates his daughter Shawna as his surrogate decision maker and wishes to be a full code. Smoking status: Never smoker Alcohol intake: former Drinks per week: 1 Alcohol use details: QUIT EXCESSIVE ETOH 2017 Substance use: current Substance use type: marijuana Other substance usage details: EDIBLES, SMOKES MARIJUANA Last use: 12/27/20 Living arrangements: alone Gender identity (if verbalized by the patient): Male Sexual Orientation (if Verbalized by the Patient): Straight or Heterosexual Spiritual care concerns: No Meds Home Medications and Allergies Home Medications Medication Instructions Recorded Confirmed Type lactulose 10 gram/15 mL oral 5 ml PO DAILY ml 08/19/19 02/01/21 History solution omeprazole 20 mg capsule,delayed 40 mg PO BID cap 08/19/19 02/01/21 History release spironolactone 100 mg tablet 100 mg PO DAILY 08/19/19 02/01/21 History thi
[2021-02-02] VITALS (9 sets, daily range): BP systolic 94–143; BP diastolic 58–73; PULSE 46–60; RESP 10–16; TEMP 36.2–36.6; O2SAT 99–100
--- NOTE | 2021-02-02 06:59 | WPDHPUPDATE1 ---
History and Physical Update Update Date/Time: 02/02/21 06:59 History and Physical has been reviewed, including an updated exam of the patient. There are NO changes in the patient's condition. Risks, benefits, and alternatives have been discussed and questions answered. Patient agrees to proceed with procedure.
[2021-02-02] MEDS: LACTATED RINGERS 1,000 ML 30 ML IV CONT (10:35)
[2021-02-02] MEDS: KETOROLAC 15 MG/ML VIAL (*BKC) IV PUSH (10:36)
[2021-02-02] MEDS: ACETAMINOPHEN 500 MG TABLET 1000 MG PO (10:36)
[2021-02-02 11:03] LABS: Anion Gap 5 mmol/L (8-16); Blood Urea Nitrogen 13 mg/dL (9-20); Calcium 8.7 mg/dL (8.4-10.2); Carbon Dioxide 26 mmol/L (22-30); Chloride 102 mmol/L (98-107); Estimated CRCL calculation 76 ml/min; Estimated Glomerular Filt Rate > 60; Glucose 102 mg/dL (75-110); INR 1.4; Potassium 3.8 mmol/L (3.4-5.0); Sodium 133 mmol/L (137-145)
[2021-02-02 11:04] LABS: Partial Thromboplastin Time 38.3 SECONDS (22.3-36.8)
[2021-02-02] MEDS: ceFAZolin 2 GM/D5W 50 ML 2 GM/50 ML BAG IVPB (11:34)
[2021-02-02] MEDS: BUPIVACAINE HCL 0.5% PF 30 ML VIAL INFILTRATE (12:30)
--- NOTE | 2021-02-02 13:04 | W.PM.PROC2 ---
Procedure Note - Detailed Date of Procedure 02/02/21 Pre-op Diagnosis left foot necrotizing facsiitis Post-op Diagnosis same Procedure Performed Excisional debridement left foot ulcer, application of synthetic skin graft Surgeon Blair Negron MD Skin Therapist 1st assist Anesthesia general Indications 60-year-old gentleman with hepatic failure developed necrotizing fasciitis of the left foot. Has had multiple debridements in graft applications. He now has soft tissue which is devitalized and nonviable. He has an open wound which requires assistance with healing with synthetic skin graft. Findings 9 cm x 2.5 cm x 0.7 cm wound dorsum left foot Description of Procedure What was done: Patient identified in the preoperative holding. Informed consent given. Operative extremity marked. Patient received intravenous antibiotics. Patient brought to the operating room where underwent general anesthetic by anesthesia team. Positioned supine on operating room table. Time-out performed confirming the patient, site of the surgery and the plan. left foot prepped draped usual sterile surgical fashion using a Betadine prep solution. There is a piece of nonviable tissue 2 x 2 cm on the distal aspect of the ulcer dorsum left foot. The nonviable portion of this was sharply excised with a 15 blade knife. Fifteen blade knife used to sharply excise and passed off nonviable tissue from the wound left foot. Skin, subcutaneous tissue, muscle was debrided, excised and passed off. Final wound dimensions 9 x 2.5 cm with 0.7 cm depth at the distal aspect. 2 cm diameter ulcer at the end of the hallux also debrided with a rongeur skin and subcutaneous tissue. Wounds thoroughly irrigated with solution. Portion of the distal wound was able to be closed with 3 O nylon interrupted suture. The remaining open wound was had covered with graft. 3 x 3 cm amniotic allograft applied to the wound. 500 mg of micro matrix xenograft was reconstituted on the back table and then applied to the wound in a paced form. Wound was then covered with the by layer xenograft which was sutured into place with 4 O Monocryl interrupted suture. Sterile dressing applied. The patient was then woken from anesthesia, extubated and taken to the recovery room in stable condition. All sponge, needle, instrument counts were correct at the end of the case. Implants amniotic cell plus 3 x 3 cm tissue ID [id number] expiration date December 23, 2024. Micro matrix particulate 500 mg lot [id number] expiration July 28, 2022. Integra bilayer wound matrix 5 x 5 cm xenograft lot [id number] June 27, 2022 Estimated Blood Loss 5 Tourniquet Time 0 Drains No Packing Yes Pathology none sent Complications None Condition stable Disposition PACU
--- NOTE | 2021-02-02 15:30 | SUR.PHASEII ---
RN called Dr. Negron to clarify the dosing for gabapentin. All home meds are to be continued without changes.
== END 2021-02-02 15:05 | disposition home or self-care (01) ==
PROVIDERS: Anesthesiology; PCP Internal Medicine; Visit Provider Orthopaedic Surgery
PROC: (CPT 15275; principal; 2021-02-02 12:00)
DX: M72.6 Necrotizing fasciitis (principal); L97.529 Non-pressure chronic ulcer of other part of left foot with unspecified severity; K70.30 Alcoholic cirrhosis of liver without ascites; I10 Essential (primary) hypertension; K21.9 Gastro-esophageal reflux disease without esophagitis; I48.0 Paroxysmal atrial fibrillation; F10.21 Alcohol dependence, in remission; Z79.891 Long term (current) use of opiate analgesic; F12.90 Cannabis use, unspecified, uncomplicated
CPT/HCPCS: 15275; 15004; 36415; 80048; 85610; 85730; A9270; C9363; J0690; J1885; J2250; J3010; J7120; Q4137

== ENCOUNTER 2021-02-28 07:09 | Outpatient (RCR) | payer MEDICARE, SELFPAY ==
[2020-11-28 00:03] VITALS: BMI 25.8
--- NOTE | 2020-12-02 08:46 | PM.IMHP ---
H&P: HPI History of Present Illness Date/Time: 12/02/20 08:46 Chief Complaint: left foot necrotizing fasciitis Narrative: patient returns for follow-up [facility] orthopedic outpatient wound clinic. Complains of increased pain, redness and swelling left foot. Deny fever or chills, nausea or vomiting. Review of Systems Constitutional: Constitutional: Reports no additional constitutional complaints, Denies excessive sweating and Denies fever(s) Eyes: Eyes: Reports no additional eye complaints and Denies change in vision ENT: Reports system reviewed and no additional complaints, except as documented and Reports Normal hearing present Cardiovascular: Cardiovascular: Denies chest pain, Denies diaphoresis, Denies leg ulcers and Denies dyspnea on exertion Respiratory: Respiratory: Reports no additional respiratory complaints, Denies cough and Denies dyspnea on exertion Gastrointestinal: Gastrointestinal: Reports no additional gastrointestinal complaints, Denies abdominal pain, Denies constipation, Denies nausea and Denies vomiting Genitourinary: Genitourinary: Reports no additional male genitourinary complaints, Denies hematuria and Denies urinary frequency Musculoskeletal: Musculoskeletal: Reports as per HPI Integumentary/Breasts: Skin/Breast: Reports as per HPI Neurologic: Reports Normal hearing present Psychiatric: Psychiatric: Reports no additional psychiatric complaints Endocrine: Endocrine: Reports no additional endocrine complaints, Denies change in body appearance, Denies excessive sweating, Denies polyphagia, Denies polydipsia and Denies polyuria PMF Past Medical History Medical History Abscess of foot including toes Alcoholic cirrhosis of liver He has abstained from alcohol for at least 2 years as of July 2020. Essential hypertension Fall Gastroesophageal reflux disease Hyponatremia Left ankle pain Necrotizing fasciitis of ankle and foot Paroxysmal atrial fibrillation Surgical History Surgical History History of surgery on arm (~2012) ORIF right humerus fracture. History of surgery on wrist History of ventral hernia repair (~11/2013) Subsequent abdominal wall exploration with drainage of a seroma at the same site in 03/2014. Family History Family History Mother Hypertension Family history of diabetes mellitus in first degree relative Diabetes mellitus Father Family history of pancreatic cancer Social History Social History Social History: The patient lives alone in [place]. Retired from [employer]. He has a longstanding history of alcohol abuse. He also endorses marijuana use intermittently in a social setting. He designates his daughter Shawna as his surrogate decision maker and wishes to be a full code. Smoking status: Never smoker Alcohol intake: former Substance use: current Substance use type: marijuana Other substance usage details: 08/15/20 Gender identity (if verbalized by the patient): Male Spiritual care concerns: No Meds Home Medications and Allergies Home Medications Medication Instructions Recorded Confirmed Type lactulose 10 gram/15 mL oral 5 ml PO TID ml 08/19/19 10/25/20 History solution omeprazole 20 mg capsule,delayed 40 mg PO BID cap 08/19/19 10/25/20 History release spironolactone 100 mg tablet 100 mg PO DAILY 08/19/19 10/25/20 History thiamine HCl (vitamin B1) 250 mg 250 mg PO DAILY 08/19/19 10/25/20 History tablet lidocaine HCl [Lidocaine Viscous] 1 applic MUCOUS MEMBRANE BID PRN 10/10/20 10/25/20 History nadolol 40 mg PO DAILY 10/10/20 10/25/20 History ciprofloxacin HCl 500 mg tablet 500 mg PO Q12H 10/25/20 10/25/20 History furosemide 40 mg tablet 40 mg PO BID tablet 10/25/20 10/25/20 History oxycodo
--- NOTE | 2020-12-13 08:39 | PM.PNORT ---
Progress Note: A&P Assessment and Plan (1) Necrotizing fasciitis of ankle and foot: Code(s): M72.6 - Necrotizing fasciitis Status: Acute Assessment and Plan: Patient presents [place] wound clinic 5 days status post debridement and graft application the left forefoot and midfoot ulceration. Graft in place. Sutures intact. Graft incorporating well. No signs of infection at this time. Recommended continuation of dressing changes twice weekly. Method tell 1 applied over graft for graft protection, ABD pad and Kerlix and Coban applied. Patient to follow-up since Saturday for dressing change. Patient to maintain nonweightbearing status of the left lower extremity. Recommended elevation for swelling control. Follow up Saturday. Subjective Subjective Date/Time Seen: 12/13/20 08:39 60-year-old male follows up today and [place] wound clinic 5 days status post debridement and graft application to the left dorsal midfoot and forefoot wound. Patient denies fever, chills, night sweats, nausea, vomiting or diarrhea. He has had no complications status post surgical intervention. His dressing has remained in place since that day. Review of Systems Constitutional: Constitutional: Reports no additional constitutional complaints, Denies excessive sweating and Denies fever(s) Eyes: Eyes: Reports no additional eye complaints and Denies change in vision ENT: Reports system reviewed and no additional complaints, except as documented and Reports Normal hearing present Cardiovascular: Cardiovascular: Denies chest pain, Denies diaphoresis, Denies leg ulcers and Denies dyspnea on exertion Respiratory: Respiratory: Reports no additional respiratory complaints, Denies cough and Denies dyspnea on exertion Gastrointestinal: Gastrointestinal: Reports no additional gastrointestinal complaints, Denies abdominal pain, Denies constipation, Denies nausea and Denies vomiting Genitourinary: Genitourinary: Reports no additional male genitourinary complaints, Denies hematuria and Denies urinary frequency Musculoskeletal: Musculoskeletal: Reports as per HPI Integumentary/Breasts: Skin/Breast: Reports as per HPI Neurologic: Reports Normal hearing present Psychiatric: Psychiatric: Reports no additional psychiatric complaints Endocrine: Endocrine: Reports no additional endocrine complaints, Denies change in body appearance, Denies excessive sweating, Denies polyphagia, Denies polydipsia and Denies polyuria Exam Const: General: comfortable and no acute distress Nutritional Appearance: well nourished Orientation/consciousness: patient oriented x3 Limitations: no limitations HENMT: Head: normocephalic and atraumatic Ears: external ears normal Face and sinus: face symmetric Mouth: Yes moist mucous membranes Eyes: General: appearance normal, both eyes and all related structures Eyelids: eyelids normal Conjunctivae: conjunctivae normal Sclera: sclerae normal Neck: Neck: supple and no JVD Resp: Effort & Inspection: normal respiratory effort Cardio: Jugular venous distension: no JVD Rate: regular rate Rhythm: regular rhythm GI: Inspection: non-distended GI Palp: Yes Soft to palpation and No Tenderness to palpation present (GI) Neuro: General: gait normal Cognition (Neuro): normal cognition Speech: normal speech Extrem: Left lower extremity: lower leg, ankle (erythema ) and foot Other: Left foot dressing removed. Wound remains covered with graft. Graft incorporating well. Surrounding tissue without redness, warmth or swelling. No tenderness. No signs of active infection at this time. Good capillary refill. Psych: Mental Status: mental status grossly normal Affect: normal affect Thought content: Yes Normal thought content present Objective Data Meds/Results Medications: Active Medications Generic Name Dose Route Start Last Admin Trade Name Freq PRN Reason Stop Dose Admin Silver Nitrate 1 applic 12/02/20 12:22
--- NOTE | 2020-12-16 09:18 | PM.PNORT ---
Progress Note: A&P Assessment and Plan (1) Necrotizing fasciitis of ankle and foot: Code(s): M72.6 - Necrotizing fasciitis <JAVAN Shah - Last Filed: 12/16/20 09:22> Status: Acute <RegineJAVAN Mclean - Last Filed: 12/16/20 09:22> Assessment and Plan: Patient presents [place] wound clinic 1 week, 1 day status post debridement and graft application the left forefoot and midfoot ulceration. Graft in place. Sutures intact. Graft incorporating well. No signs of infection at this time. Surrounding tissue with maceration consistent with yeast. Initiation of antifungal powder in addition to daily dressing changes. Recommended continuation of dressing changes twice weekly. Mepitel ONE applied over graft for graft protection, ABD pad and Kerlix and Coban applied. Patient to follow-up on Saturday for dressing change. Patient to maintain nonweightbearing of the left lower extremity. Recommended elevation for swelling control. <JAVAN Shah - Last Filed: 12/16/20 09:22> Subjective Subjective Date/Time Seen: 12/16/20 09:18 60-year-old male follows up today and [place] wound clinic 1 week, 1 day status post debridement and graft application to the left dorsal midfoot and forefoot wound. Patient denies fever, chills, night sweats, nausea, vomiting or diarrhea. He has had no complications status post surgical intervention. <JAVAN Shah - Last Filed: 12/16/20 09:22> Review of Systems Constitutional: Constitutional: Reports no additional constitutional complaints, Denies excessive sweating and Denies fever(s) <JAVAN Shah - Last Filed: 12/16/20 09:22> Eyes: Eyes: Reports no additional eye complaints and Denies change in vision <JAVAN Shah - Last Filed: 12/16/20 09:22> ENT: Reports system reviewed and no additional complaints, except as documented and Reports Normal hearing present <JAVAN Shah - Last Filed: 12/16/20 09:22> Cardiovascular: Cardiovascular: Denies chest pain, Denies diaphoresis, Denies leg ulcers and Denies dyspnea on exertion <Regine Deluna [facility] Last Filed: 12/16/20 09:22> Respiratory: Respiratory: Reports no additional respiratory complaints, Denies cough and Denies dyspnea on exertion <Regine Deluna [facility] Last Filed: 12/16/20 09:22> Gastrointestinal: Gastrointestinal: Reports no additional gastrointestinal complaints, Denies abdominal pain, Denies constipation, Denies nausea and Denies vomiting <Regine Deluna [facility] - Last Filed: 12/16/20 09:22> Genitourinary: Genitourinary: Reports no additional male genitourinary complaints, Denies hematuria and Denies urinary frequency <Regine Deluna [facility] Last Filed: 12/16/20 09:22> Musculoskeletal: Musculoskeletal: Reports as per HPI <Regine Deluna [facility] - Last Filed: 12/16/20 09:22> Integumentary/Breasts: Skin/Breast: Reports as per HPI <Regine Deluna [facility] Last Filed: 12/16/20 09:22> Neurologic: Reports Normal hearing present <Regine Deluna [facility] Last Filed: 12/16/20 09:22> Psychiatric: Psychiatric: Reports no additional psychiatric complaints <Regine Deluna [facility] Last Filed: 12/16/20 09:22> Endocrine: Endocrine: Reports no additional endocrine complaints, Denies change in body appearance, Denies excessive sweating, Denies polyphagia, Denies polydipsia and Denies polyuria <Regine Deluna [facility] Last Filed: 12/16/20 09:22> Exam Const: General: comfortable and no acute distress <Regine Deluna [facility] - Last Filed: 12/16/20 09:22> Nutritional Appearance: well nourished <Regine Deluna [facility] Last Filed: 12/16/20 09:22> Orientation/consciousness: patient oriented x3 <Regine Deluna [facility] Last Filed: 12/16/20 09:22> Limitations: no limitations <Regine Deluna [facility] - Last Filed: 12/16/20 09:22> HENMT: Head: normocephalic and atraumatic <JAVAN Shah - Last Filed: 12/16/20 09:22> Ears: external ears normal <JAVAN Shah - Last Filed: 12/16/20 09:22>
--- NOTE | 2020-12-20 08:52 | PM.IMHP ---
H&P: HPI History of Present Illness Date/Time: 12/20/20 08:52 Chief Complaint: left foot ulcer Narrative: Patient is 1 week, 5 days status post debridement and graft application to the left dorsal foot wound status post left foot necrotizing fasciitis which was 3 months ago. The patient denies fever, chills, night sweats, nausea, vomiting or diarrhea. He has been presenting to the Wound Clinic 2 times weekly for dressing changes. Graft remains in place at this time. Review of Systems Constitutional: Constitutional: Reports no additional constitutional complaints, Denies excessive sweating and Denies fever(s) Eyes: Eyes: Reports no additional eye complaints and Denies change in vision ENT: Reports system reviewed and no additional complaints, except as documented and Reports Normal hearing present Cardiovascular: Cardiovascular: Denies chest pain, Denies diaphoresis, Denies leg ulcers and Denies dyspnea on exertion Respiratory: Respiratory: Reports no additional respiratory complaints, Denies cough and Denies dyspnea on exertion Gastrointestinal: Gastrointestinal: Reports no additional gastrointestinal complaints, Denies abdominal pain, Denies constipation, Denies nausea and Denies vomiting Genitourinary: Genitourinary: Reports no additional male genitourinary complaints, Denies hematuria and Denies urinary frequency Musculoskeletal: Musculoskeletal: Reports as per HPI Integumentary/Breasts: Skin/Breast: Reports as per HPI Neurologic: Reports Normal hearing present Psychiatric: Psychiatric: Reports no additional psychiatric complaints Endocrine: Endocrine: Reports no additional endocrine complaints, Denies change in body appearance, Denies excessive sweating, Denies polyphagia, Denies polydipsia and Denies polyuria [facility] Past Medical History Medical History Abscess of foot including toes Alcoholic cirrhosis of liver He has abstained from alcohol for at least 2 years as of July 2020. Essential hypertension Fall Gastroesophageal reflux disease Hyponatremia Left ankle pain Necrotizing fasciitis of ankle and foot Paroxysmal atrial fibrillation Surgical History Surgical History History of surgery on arm (~2012) ORIF right humerus fracture. History of surgery on wrist History of ventral hernia repair (~11/2013) Subsequent abdominal wall exploration with drainage of a seroma at the same site in 03/2014. Family History Family History Mother Hypertension Family history of diabetes mellitus in first degree relative Diabetes mellitus Father Family history of pancreatic cancer Social History Social History Social History: The patient lives alone in [place]. Retired from [employer]. He has a longstanding history of alcohol abuse. He also endorses marijuana use intermittently in a social setting. He designates his daughter Shawna as his surrogate decision maker and wishes to be a full code. Smoking status: Never smoker Alcohol intake: former Substance use: current Substance use type: marijuana Other substance usage details: SMOKE, EDIBLE Last use: 11/14/20 Gender identity (if verbalized by the patient): Male Spiritual care concerns: No Meds Home Medications and Allergies Home Medications Medication Instructions Recorded Confirmed Type lactulose 10 gram/15 mL oral 5 ml PO DAILY ml 08/19/19 12/08/20 History solution omeprazole 20 mg capsule,delayed 40 mg PO BID cap 08/19/19 12/08/20 History release spironolactone 100 mg tablet 100 mg PO DAILY 08/19/19 12/08/20 History thiamine HCl (vitamin B1) 250 mg 250 mg PO DAILY 08/19/19 12/08/20 History tablet nadolol 40 mg PO DAILY 10/10/20 12/08/20 History furosemide 40 mg tablet 40 mg PO BID tablet 10/25/2011/26
--- NOTE | 2020-12-23 08:49 | PM.IMHP ---
H&P: HPI History of Present Illness Date/Time: 12/23/20 08:49 Patient is 2 weeks, 1 day status post debridement and graft application to the left dorsal foot wound status post left foot necrotizing fasciitis which was 3 months ago. The patient denies fever, chills, night sweats, nausea, vomiting or diarrhea. He has been presenting to the Wound Clinic 2 times weekly for dressing changes. Mild increase in drainage over the last 2 days. Chief Complaint: right dorsal foot ulcer s/p necrotizing fasciitis. Review of Systems Constitutional: Constitutional: Reports no additional constitutional complaints, Denies excessive sweating and Denies fever(s) Eyes: Eyes: Reports no additional eye complaints and Denies change in vision ENT: Reports system reviewed and no additional complaints, except as documented and Reports Normal hearing present Cardiovascular: Cardiovascular: Denies chest pain, Denies diaphoresis, Denies leg ulcers and Denies dyspnea on exertion Respiratory: Respiratory: Reports no additional respiratory complaints, Denies cough and Denies dyspnea on exertion Gastrointestinal: Gastrointestinal: Reports no additional gastrointestinal complaints, Denies abdominal pain, Denies constipation, Denies nausea and Denies vomiting Genitourinary: Genitourinary: Reports no additional male genitourinary complaints, Denies hematuria and Denies urinary frequency Musculoskeletal: Musculoskeletal: Reports as per HPI Integumentary/Breasts: Skin/Breast: Reports as per HPI Neurologic: Reports Normal hearing present Psychiatric: Psychiatric: Reports no additional psychiatric complaints Endocrine: Endocrine: Reports no additional endocrine complaints, Denies change in body appearance, Denies excessive sweating, Denies polyphagia, Denies polydipsia and Denies polyuria [facility] Past Medical History Medical History Abscess of foot including toes Alcoholic cirrhosis of liver He has abstained from alcohol for at least 2 years as of July 2020. Essential hypertension Fall Gastroesophageal reflux disease Hyponatremia Left ankle pain Necrotizing fasciitis of ankle and foot Paroxysmal atrial fibrillation Surgical History Surgical History History of surgery on arm (~2012) ORIF right humerus fracture. History of surgery on wrist History of ventral hernia repair (~11/2013) Subsequent abdominal wall exploration with drainage of a seroma at the same site in 03/2014. Family History Family History Mother Hypertension Family history of diabetes mellitus in first degree relative Diabetes mellitus Father Family history of pancreatic cancer Social History Social History Social History: The patient lives alone in [place]. Retired from [employer]. He has a longstanding history of alcohol abuse. He also endorses marijuana use intermittently in a social setting. He designates his daughter Shawna as his surrogate decision maker and wishes to be a full code. Smoking status: Never smoker Alcohol intake: former Substance use: current Substance use type: marijuana Other substance usage details: SMOKE, EDIBLE Last use: 11/14/20 Gender identity (if verbalized by the patient): Male Spiritual care concerns: No Meds Home Medications and Allergies Home Medications Medication Instructions Recorded Confirmed Type lactulose 10 gram/15 mL oral 5 ml PO DAILY ml 08/19/19 12/08/20 History solution omeprazole 20 mg capsule,delayed 40 mg PO BID cap 08/19/19 12/08/20 History release spironolactone 100 mg tablet 100 mg PO DAILY 08/19/19 12/08/20 History thiamine HCl (vitamin B1) 250 mg 250 mg PO DAILY 08/19/19 12/08/20 History tablet nadolol 40 mg PO DAILY 10/10/20 12/08/20 History furosemide 40 mg table
--- NOTE | 2020-12-30 12:25 | PM.IMHP ---
H&P: HPI History of Present Illness Date/Time: 12/30/20 12:25 Chief Complaint: Left foot wound status post necrotizing fasciitis Narrative: Patient is 3 weeks, 1 day status post debridement and graft application to the left dorsal foot wound status post left foot necrotizing fasciitis which was 3 months ago. The patient denies fever, chills, night sweats, nausea, vomiting or diarrhea. He has been presenting to the Wound Clinic 2 times weekly for dressing changes. he reports maybe having hit his 2nd toe on something. He notes increased necrotic tissue. Review of Systems Constitutional: Constitutional: Reports no additional constitutional complaints, Denies excessive sweating and Denies fever(s) Eyes: Eyes: Reports no additional eye complaints and Denies change in vision ENT: Reports system reviewed and no additional complaints, except as documented and Reports Normal hearing present Cardiovascular: Cardiovascular: Denies chest pain, Denies diaphoresis, Denies leg ulcers and Denies dyspnea on exertion Respiratory: Respiratory: Reports no additional respiratory complaints, Denies cough and Denies dyspnea on exertion Gastrointestinal: Gastrointestinal: Reports no additional gastrointestinal complaints, Denies abdominal pain, Denies constipation, Denies nausea and Denies vomiting Genitourinary: Genitourinary: Reports no additional male genitourinary complaints, Denies hematuria and Denies urinary frequency Musculoskeletal: Musculoskeletal: Reports as per HPI Integumentary/Breasts: Skin/Breast: Reports as per HPI Neurologic: Reports Normal hearing present Psychiatric: Psychiatric: Reports no additional psychiatric complaints Endocrine: Endocrine: Reports no additional endocrine complaints, Denies change in body appearance, Denies excessive sweating, Denies polyphagia, Denies polydipsia and Denies polyuria [facility] Past Medical History Medical History Abscess of foot including toes Alcoholic cirrhosis of liver He has abstained from alcohol for at least 2 years as of July 2020. Essential hypertension Fall Gastroesophageal reflux disease Hyponatremia Left ankle pain Necrotizing fasciitis of ankle and foot Paroxysmal atrial fibrillation Surgical History Surgical History History of surgery on arm (~2012) ORIF right humerus fracture. History of surgery on wrist History of ventral hernia repair (~11/2013) Subsequent abdominal wall exploration with drainage of a seroma at the same site in 03/2014. Family History Family History Mother Hypertension Family history of diabetes mellitus in first degree relative Diabetes mellitus Father Family history of pancreatic cancer Social History Social History Social History: The patient lives alone in [place]. Retired from [employer]. He has a longstanding history of alcohol abuse. He also endorses marijuana use intermittently in a social setting. He designates his daughter Shawna as his surrogate decision maker and wishes to be a full code. Smoking status: Never smoker Alcohol intake: former Substance use: current Substance use type: marijuana Other substance usage details: SMOKE, EDIBLE Last use: 11/30/20 Spiritual care concerns: No Meds Home Medications and Allergies Home Medications Medication Instructions Recorded Confirmed Type lactulose 10 gram/15 mL oral 5 ml PO DAILY ml 08/19/19 12/30/20 History solution omeprazole 20 mg capsule,delayed 40 mg PO BID cap 08/19/19 12/30/20 History release spironolactone 100 mg tablet 100 mg PO DAILY 08/19/19 12/30/20 History thiamine HCl (vitamin B1) 250 mg 250 mg PO DAILY 08/19/19 12/30/20 History tablet nadolol 40 mg PO DAILY 10/10/20 12/30/20 History furosemide 40 mg tablet 40
--- NOTE | 2021-01-06 08:57 | PM.PNORT ---
Progress Note: A&P Assessment and Plan (1) Necrotizing fasciitis of ankle and foot: Code(s): M72.6 - Necrotizing fasciitis Status: Acute Assessment and Plan: POD 4: 2nd/3rd ray amp, debridement neuropathic foot ulcer and graft application Dressing changed today. No signs of acute infection. Continue oral antibiotics. New dressing applied. Silver gel over incision line at site of 2nd/3rd ray amp, cover with transfer. Mepitel ONE over graft. Cover all with gauze, ABD pad, kerlex, coband. Will change dressing on Saturday in [facility] wound clinic. Continue NWB LLE. Scoot/post op shoe. Monitor for symptoms of infection, reviewed today. Follow up Saturday. Subjective Subjective Date/Time Seen: 01/06/21 08:57 Post Op day: 4 Interval history: 4 days s/p 2nd/3rd Ray amputation and debridement of neuropathic foot ulcer and graft application. No new complaints. Continued on oral antibiotics, no complications. No fever, chills, night sweats, nausea, vomiting or diarrhea. Graft in place, incorporating well. Review of Systems Constitutional: Constitutional: Reports no additional constitutional complaints, Denies excessive sweating and Denies fever(s) Eyes: Eyes: Reports no additional eye complaints and Denies change in vision ENT: Reports system reviewed and no additional complaints, except as documented and Reports Normal hearing present Cardiovascular: Cardiovascular: Denies chest pain, Denies diaphoresis, Denies leg ulcers and Denies dyspnea on exertion Respiratory: Respiratory: Reports no additional respiratory complaints, Denies cough and Denies dyspnea on exertion Gastrointestinal: Gastrointestinal: Reports no additional gastrointestinal complaints, Denies abdominal pain, Denies constipation, Denies nausea and Denies vomiting Genitourinary: Genitourinary: Reports no additional male genitourinary complaints, Denies hematuria and Denies urinary frequency Musculoskeletal: Musculoskeletal: Reports as per HPI Integumentary/Breasts: Skin/Breast: Reports as per HPI Neurologic: Reports Normal hearing present Psychiatric: Psychiatric: Reports no additional psychiatric complaints Endocrine: Endocrine: Reports no additional endocrine complaints, Denies change in body appearance, Denies excessive sweating, Denies polyphagia, Denies polydipsia and Denies polyuria Exam Const: General: comfortable and no acute distress Nutritional Appearance: well nourished Orientation/consciousness: patient oriented x3 Limitations: no limitations HENMT: Head: normocephalic and atraumatic Ears: external ears normal Face and sinus: face symmetric Mouth: Yes moist mucous membranes Eyes: General: appearance normal, both eyes and all related structures Eyelids: eyelids normal Conjunctivae: conjunctivae normal Sclera: sclerae normal Neck: Neck: supple and no JVD Resp: Effort & Inspection: normal respiratory effort Cardio: Jugular venous distension: no JVD Rate: regular rate Rhythm: regular rhythm GI: Inspection: non-distended GI Palp: Yes Soft to palpation and No Tenderness to palpation present (GI) Neuro: General: gait normal Cognition (Neuro): normal cognition Speech: normal speech Extrem: Left lower extremity: lower leg Details: pitting edema Details: 1+, ankle ( ) Details: normal to inspection and pitting edema Details: 1+; no tenderness, no ecchymosis and no crepitus and foot ( Dorsal foot wound, see below) Details: abnormal ROM of toe Details: pain with active ROM Location: of the 2nd digit, of the 3rd digit and of the 4th digit, vascular exam Details: dorsalis pedis pulse present and motor-sensory exam two point discrimination abnormal and light-touch abnormal 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 Incision well approximated. Graft on the dorsal wound incorporating well. Surrounding tissue without redness, warmth or swelling. Mild malodor consistent with graft and old/dried blood. Psych: Mental Status: mental status grossly normal Affe
--- NOTE | 2021-01-10 09:26 | PM.PNORT ---
Progress Note: A&P Assessment and Plan (1) Necrotizing fasciitis of ankle and foot: Code(s): M72.6 - Necrotizing fasciitis Status: Acute Assessment and Plan: 1 week. 1 day s/p 2nd/3rd ray amp, debridement neuropathic foot ulcer and graft application Dressing changed today. Graft covering no longer in place, removed. No signs of acute infection. Continue oral antibiotics. New dressing applied. Silver gel over incision line at site of 2nd/3rd ray amp, cover with transfer. Mepitel ONE over graft. Surrounging tissue with antifungal powder. Cover all with gauze, ABD pad, kerlex, coband. Patient to begin daily dressing changes but keep Mepitel ONE in place. Continue NWB LLE. Scooter/post op shoe. Monitor for symptoms of infection, reviewed today. Follow up Saturday. Subjective Subjective Date/Time Seen: 01/10/21 09:26 Interval history: 60-year-old male presents today 1 week 1 day status post amputation of the 2nd 3rd ray from the left foot, debridement of diabetic foot ulcer and graft application. The patient denies fever, chills, night sweats, nausea, vomiting or diarrhea. His dressing remains in place status post evaluation last week. He does note increased phantom pain and pain at night. No other new concerns. Review of Systems Constitutional: Constitutional: Reports no additional constitutional complaints, Denies excessive sweating and Denies fever(s) Eyes: Eyes: Reports no additional eye complaints and Denies change in vision ENT: Reports system reviewed and no additional complaints, except as documented and Reports Normal hearing present Cardiovascular: Cardiovascular: Denies chest pain, Denies diaphoresis, Denies leg ulcers and Denies dyspnea on exertion Respiratory: Respiratory: Reports no additional respiratory complaints, Denies cough and Denies dyspnea on exertion Gastrointestinal: Gastrointestinal: Reports no additional gastrointestinal complaints, Denies abdominal pain, Denies constipation, Denies nausea and Denies vomiting Genitourinary: Genitourinary: Reports no additional male genitourinary complaints, Denies hematuria and Denies urinary frequency Musculoskeletal: Musculoskeletal: Reports as per HPI Integumentary/Breasts: Skin/Breast: Reports as per HPI Neurologic: Reports Normal hearing present Psychiatric: Psychiatric: Reports no additional psychiatric complaints Endocrine: Endocrine: Reports no additional endocrine complaints, Denies change in body appearance, Denies excessive sweating, Denies polyphagia, Denies polydipsia and Denies polyuria Exam Const: General: comfortable and no acute distress Nutritional Appearance: well nourished Orientation/consciousness: patient oriented x3 Limitations: no limitations HENMT: Head: normocephalic and atraumatic Ears: external ears normal Face and sinus: face symmetric Mouth: Yes moist mucous membranes Eyes: General: appearance normal, both eyes and all related structures Eyelids: eyelids normal Conjunctivae: conjunctivae normal Sclera: sclerae normal Neck: Neck: supple and no JVD Resp: Effort & Inspection: normal respiratory effort Cardio: Jugular venous distension: no JVD Rate: regular rate Rhythm: regular rhythm GI: Inspection: non-distended GI Palp: Yes Soft to palpation and No Tenderness to palpation present (GI) Neuro: General: gait normal Cognition (Neuro): normal cognition Speech: normal speech Extrem: Left lower extremity: lower leg Details: pitting edema Details: 1+, ankle ( ) Details: normal to inspection and pitting edema Details: 1+; no tenderness, no ecchymosis and no crepitus and foot ( Dorsal foot wound, see below) Details: abnormal ROM of toe Details: pain with active ROM Location: of the 2nd digit, of the 3rd digit and of the 4th digit, vascular exam Details: dorsalis pedis pulse present and motor-sensory exam two point discrimination abnormal and light-touch abnormal 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 Incision well approxim
--- NOTE | 2021-01-13 08:44 | PM.PNORT ---
Progress Note: A&P Assessment and Plan (1) Necrotizing fasciitis of ankle and foot: Code(s): M72.6 - Necrotizing fasciitis Status: Acute Assessment and Plan: 1 week, 4 days s/p 2nd/3rd ray amp, debridement neuropathic foot ulcer and graft application Dressing changed today. No signs of acute infection. Continue oral antibiotics. New dressing applied. Silver gel, Marlen over incision line at site of 2nd/3rd ray amp, cover with transfer. Surrounding tissue with antifungal powder. Cover all with gauze, ABD pad, kerlex, coband. Patient may wash now. Daily dressing changes. Continue NWB LLE. Scooter/post op shoe. Monitor for symptoms of infection, reviewed today. Follow up next week. Subjective Subjective Date/Time Seen: 01/13/21 08:44 60-year-old male presents today 1 week 4 days status post amputation of the 2nd, 3rd ray from the left foot, debridement of diabetic foot ulcer and graft application. The patient denies fever, chills, night sweats, nausea, vomiting or diarrhea. His dressing remains in place status post evaluation earlier this week- Mepitel ONE has not been removed per orders. Improvement in pain. No other new concerns. Review of Systems Constitutional: Constitutional: Reports no additional constitutional complaints, Denies excessive sweating and Denies fever(s) Eyes: Eyes: Reports no additional eye complaints and Denies change in vision ENT: Reports system reviewed and no additional complaints, except as documented and Reports Normal hearing present Cardiovascular: Cardiovascular: Denies chest pain, Denies diaphoresis, Denies leg ulcers and Denies dyspnea on exertion Respiratory: Respiratory: Reports no additional respiratory complaints, Denies cough and Denies dyspnea on exertion Gastrointestinal: Gastrointestinal: Reports no additional gastrointestinal complaints, Denies abdominal pain, Denies constipation, Denies nausea and Denies vomiting Genitourinary: Genitourinary: Reports no additional male genitourinary complaints, Denies hematuria and Denies urinary frequency Musculoskeletal: Musculoskeletal: Reports as per HPI Integumentary/Breasts: Skin/Breast: Reports as per HPI Neurologic: Reports Normal hearing present Psychiatric: Psychiatric: Reports no additional psychiatric complaints Endocrine: Endocrine: Reports no additional endocrine complaints, Denies change in body appearance, Denies excessive sweating, Denies polyphagia, Denies polydipsia and Denies polyuria Exam Const: General: comfortable and no acute distress Nutritional Appearance: well nourished Orientation/consciousness: patient oriented x3 Limitations: no limitations HENMT: Head: normocephalic and atraumatic Ears: external ears normal Face and sinus: face symmetric Mouth: Yes moist mucous membranes Eyes: General: appearance normal, both eyes and all related structures Eyelids: eyelids normal Conjunctivae: conjunctivae normal Sclera: sclerae normal Neck: Neck: supple and no JVD Resp: Effort & Inspection: normal respiratory effort Cardio: Jugular venous distension: no JVD Rate: regular rate Rhythm: regular rhythm GI: Inspection: non-distended GI Palp: Yes Soft to palpation and No Tenderness to palpation present (GI) Neuro: General: gait normal Cognition (Neuro): normal cognition Speech: normal speech Extrem: Left lower extremity: lower leg Details: pitting edema Details: 1+, ankle ( ) Details: normal to inspection and pitting edema Details: 1+; no tenderness, no ecchymosis and no crepitus and foot ( Dorsal foot wound, see below) Details: abnormal ROM of toe Details: pain with active ROM Location: of the 2nd digit, of the 3rd digit and of the 4th digit, vascular exam Details: dorsalis pedis pulse present and motor-sensory exam two point discrimination abnormal and light-touch abnormal 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 Incision well approximated. Graft on the dorsal wound incorporating well, graft covering no longer in
--- NOTE | 2021-01-17 09:07 | PM.PNORT ---
Progress Note: A&P Assessment and Plan (1) Necrotizing fasciitis of ankle and foot: Code(s): M72.6 - Necrotizing fasciitis Status: Acute Assessment and Plan: 2 weeks, 1 day s/p 2nd/3rd ray amp, debridement neuropathic foot ulcer and graft application Dressing changed today. No signs of acute infection. Continue oral antibiotics. New dressing applied. Silver gel, Marlen over incision line at site of 2nd/3rd ray amp, cover with transfer. Surrounding tissue with antifungal powder. Cover all with gauze, ABD pad, kerlex, coband. Daily dressing changes, wash foot. Continue NWB LLE. Scooter/post op shoe. Monitor for symptoms of infection, reviewed today. Follow up next week. Subjective Subjective Date/Time Seen: 01/17/21 09:07 Interval history: 60-year-old male presents today 2 weeks 1 day status post amputation of the 2nd, 3rd ray from the left foot, debridement of diabetic foot ulcer and graft application. The patient denies fever, chills, night sweats, nausea, vomiting or diarrhea. Improvement in pain with initiation of Gabapentin by PCP. No new concerns. Review of Systems Constitutional: Constitutional: Reports no additional constitutional complaints, Denies excessive sweating and Denies fever(s) Eyes: Eyes: Reports no additional eye complaints and Denies change in vision ENT: Reports system reviewed and no additional complaints, except as documented and Reports Normal hearing present Cardiovascular: Cardiovascular: Denies chest pain, Denies diaphoresis, Denies leg ulcers and Denies dyspnea on exertion Respiratory: Respiratory: Reports no additional respiratory complaints, Denies cough and Denies dyspnea on exertion Gastrointestinal: Gastrointestinal: Reports no additional gastrointestinal complaints, Denies abdominal pain, Denies constipation, Denies nausea and Denies vomiting Genitourinary: Genitourinary: Reports no additional male genitourinary complaints, Denies hematuria and Denies urinary frequency Musculoskeletal: Musculoskeletal: Reports as per HPI Integumentary/Breasts: Skin/Breast: Reports as per HPI Neurologic: Reports Normal hearing present Psychiatric: Psychiatric: Reports no additional psychiatric complaints Endocrine: Endocrine: Reports no additional endocrine complaints, Denies change in body appearance, Denies excessive sweating, Denies polyphagia, Denies polydipsia and Denies polyuria Exam Const: General: comfortable and no acute distress Nutritional Appearance: well nourished Orientation/consciousness: patient oriented x3 Limitations: no limitations HENMT: Head: normocephalic and atraumatic Ears: external ears normal Face and sinus: face symmetric Mouth: Yes moist mucous membranes Eyes: General: appearance normal, both eyes and all related structures Eyelids: eyelids normal Conjunctivae: conjunctivae normal Sclera: sclerae normal Neck: Neck: supple and no JVD Resp: Effort & Inspection: normal respiratory effort Cardio: Jugular venous distension: no JVD Rate: regular rate Rhythm: regular rhythm GI: Inspection: non-distended GI Palp: Yes Soft to palpation and No Tenderness to palpation present (GI) Neuro: General: gait normal Cognition (Neuro): normal cognition Speech: normal speech Extrem: Left lower extremity: lower leg Details: pitting edema Details: 1+, ankle ( ) Details: normal to inspection and pitting edema Details: 1+; no tenderness, no ecchymosis and no crepitus and foot ( Dorsal foot wound, see below) Details: abnormal ROM of toe Details: pain with active ROM Location: of the 2nd digit, of the 3rd digit and of the 4th digit, vascular exam Details: dorsalis pedis pulse present and motor-sensory exam two point discrimination abnormal and light-touch abnormal 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 Incision well approximated. Sutures removed last week. Graft on the dorsal wound incorporating well, improvement in dimensions. Remaining ulcer measures 8.5x2.6x1.5 cm, 100% red/pink
--- NOTE | 2021-01-24 08:42 | PM.PNORT ---
Progress Note: A&P Assessment and Plan (1) Necrotizing fasciitis of ankle and foot: Code(s): M72.6 - Necrotizing fasciitis Status: Acute Assessment and Plan: 3 weeks, 1 day s/p 2nd/3rd ray amp, debridement neuropathic foot ulcer and graft application Dressing change today. Left lower extremity with increased swelling. Mild erythema which is 100% relieved with elevation. Wound measurements are 8.5 x 2.8 x 1.9 cm. New ulcer over the distal aspect of the hallux measures 1.8 x 1.2 x 0.1 cm. Serous drainage noted. No malodor. Patient is chronically on oral antibiotics. Continue daily dressing changes with antifungal powder to the surrounding tissue, silver gel to the wound bed, covered with gauze, ABD pad, Kerlix and a Coband. Daily dressing changes. Continue nonweightbearing left lower extremity. Scooter and postop shoe. Reinforce need for elevation. Monitor for symptoms of infection, reviewed today. Discussed signs and symptoms of worsening infection and require more immediate intervention in the emergency room. Follow up 1 week. Subjective Subjective Date/Time Seen: 01/24/21 08:42 Interval history: 60-year-old male presents today 3 weeks 1 day status post amputation of the 2nd, 3rd ray from the left foot, debridement of diabetic foot ulcer and graft application. The patient denies fever, chills, night sweats, nausea, vomiting or diarrhea. Improvement in pain with initiation of Gabapentin by PCP. Increased per patient. No new concerns. Review of Systems Constitutional: Constitutional: Reports no additional constitutional complaints, Denies excessive sweating and Denies fever(s) Eyes: Eyes: Reports no additional eye complaints and Denies change in vision ENT: Reports system reviewed and no additional complaints, except as documented and Reports Normal hearing present Cardiovascular: Cardiovascular: Denies chest pain, Denies diaphoresis, Denies leg ulcers and Denies dyspnea on exertion Respiratory: Respiratory: Reports no additional respiratory complaints, Denies cough and Denies dyspnea on exertion Gastrointestinal: Gastrointestinal: Reports no additional gastrointestinal complaints, Denies abdominal pain, Denies constipation, Denies nausea and Denies vomiting Genitourinary: Genitourinary: Reports no additional male genitourinary complaints, Denies hematuria and Denies urinary frequency Musculoskeletal: Musculoskeletal: Reports as per HPI Integumentary/Breasts: Skin/Breast: Reports as per HPI Neurologic: Reports Normal hearing present Psychiatric: Psychiatric: Reports no additional psychiatric complaints Endocrine: Endocrine: Reports no additional endocrine complaints, Denies change in body appearance, Denies excessive sweating, Denies polyphagia, Denies polydipsia and Denies polyuria Exam Const: General: comfortable and no acute distress Nutritional Appearance: well nourished Orientation/consciousness: patient oriented x3 Limitations: no limitations HENMT: Head: normocephalic and atraumatic Ears: external ears normal Face and sinus: face symmetric Mouth: Yes moist mucous membranes Eyes: General: appearance normal, both eyes and all related structures Eyelids: eyelids normal Conjunctivae: conjunctivae normal Sclera: sclerae normal Neck: Neck: supple and no JVD Resp: Effort & Inspection: normal respiratory effort Cardio: Jugular venous distension: no JVD Rate: regular rate Rhythm: regular rhythm GI: Inspection: non-distended GI Palp: Yes Soft to palpation and No Tenderness to palpation present (GI) Neuro: General: gait normal Cognition (Neuro): normal cognition Speech: normal speech Extrem: Left lower extremity: lower leg Details: pitting edema Details: 1+, ankle ( ) Details: normal to inspection and pitting edema Details: 1+; no tenderness, no ecchymosis and no crepitus and foot ( Dorsal foot wound, see below) Details: abnormal ROM of toe Details: pain with active ROM Location: of t
--- NOTE | 2021-01-31 08:35 | PM.PNORT ---
Progress Note: A&P Assessment and Plan (1) Necrotizing fasciitis of ankle and foot: Code(s): M72.6 - Necrotizing fasciitis Status: Acute Assessment and Plan: 4 weeks, 1 day s/p 2nd/3rd ray amp, debridement neuropathic foot ulcer and graft application Dressing change today. Left lower extremity with improvement in swelling. Mild erythema which is 100% relieved with elevation. Dorsal forefoot wound measures are 10.0x3.0x1.5 cm. New ulcer over the distal aspect of the hallux measures 1.2x1.4x0.1 cm. Serous drainage noted. No malodor. Patient does have a flap overlying the wound bed at the site of the 2nd/3rd ray which does not seem to be incorporating into the wound bed. Patient may benefit from return to OR for excision of skin flap and graft application. Will review with attending MD, Dr. Negron. Patient is chronically on oral antibiotics. Continue daily dressing changes with antifungal powder to the surrounding tissue, silver gel to the wound bed, covered with gauze, ABD pad, Kerlix and a Coband. Daily dressing changes. Continue nonweightbearing left lower extremity. Scooter and fracture boot. Reinforce need for elevation. Monitor for symptoms of infection, reviewed today. Discussed signs and symptoms of worsening infection and require more immediate intervention in the emergency room. Follow up 1 week. Subjective Subjective Date/Time Seen: 01/31/21 08:35 Interval history: 60-year-old male presents today 4 weeks 1 day status post amputation of the 2nd, 3rd ray from the left foot, debridement of diabetic foot ulcer and graft application. The patient denies fever, chills, night sweats, nausea, vomiting or diarrhea. Improvement in pain with initiation of Gabapentin by PCP. Increased per patient. No new concerns. Review of Systems Constitutional: Constitutional: Reports no additional constitutional complaints, Denies excessive sweating and Denies fever(s) Eyes: Eyes: Reports no additional eye complaints and Denies change in vision ENT: Reports system reviewed and no additional complaints, except as documented and Reports Normal hearing present Cardiovascular: Cardiovascular: Denies chest pain, Denies diaphoresis, Denies leg ulcers and Denies dyspnea on exertion Respiratory: Respiratory: Reports no additional respiratory complaints, Denies cough and Denies dyspnea on exertion Gastrointestinal: Gastrointestinal: Reports no additional gastrointestinal complaints, Denies abdominal pain, Denies constipation, Denies nausea and Denies vomiting Genitourinary: Genitourinary: Reports no additional male genitourinary complaints, Denies hematuria and Denies urinary frequency Musculoskeletal: Musculoskeletal: Reports as per HPI Integumentary/Breasts: Skin/Breast: Reports as per HPI Neurologic: Reports Normal hearing present Psychiatric: Psychiatric: Reports no additional psychiatric complaints Endocrine: Endocrine: Reports no additional endocrine complaints, Denies change in body appearance, Denies excessive sweating, Denies polyphagia, Denies polydipsia and Denies polyuria Exam Const: General: comfortable and no acute distress Nutritional Appearance: well nourished Orientation/consciousness: patient oriented x3 Limitations: no limitations HENMT: Head: normocephalic and atraumatic Ears: external ears normal Face and sinus: face symmetric Mouth: Yes moist mucous membranes Eyes: General: appearance normal, both eyes and all related structures Eyelids: eyelids normal Conjunctivae: conjunctivae normal Sclera: sclerae normal Neck: Neck: supple and no JVD Resp: Effort & Inspection: normal respiratory effort Cardio: Jugular venous distension: no JVD Rate: regular rate Rhythm: regular rhythm GI: Inspection: non-distended GI Palp: Yes Soft to palpation and No Tenderness to palpation present (GI) Neuro: General: gait normal Cognition (Neuro): normal cognition Speech: normal speech Extrem: Left lower ex
--- NOTE | 2021-02-07 08:40 | PM.PNORT ---
Progress Note: A&P Assessment and Plan (1) Necrotizing fasciitis of ankle and foot: Code(s): M72.6 - Necrotizing fasciitis Status: Acute Assessment and Plan: 5 days s/p debride and graft application. Graft incorporating. Dressing changed. Fx boot. Edema control. F/U 3 days for dressing changes. Subjective Subjective Date/Time Seen: 02/07/21 08:40 Post Op day: 5 Principal diagnosis: LT foot nec fasc Interval history: Lt foot debridement and graft. 1st f/u visit. No c/o. Exam Const: General: comfortable and no acute distress Nutritional Appearance: well nourished Orientation/consciousness: patient oriented x3 Limitations: no limitations HENMT: Head: normocephalic and atraumatic Ears: external ears normal Face and sinus: face symmetric Mouth: Yes moist mucous membranes Eyes: General: appearance normal, both eyes and all related structures Eyelids: eyelids normal Conjunctivae: conjunctivae normal Sclera: sclerae normal Neck: Neck: supple and no JVD Resp: Effort & Inspection: normal respiratory effort Cardio: Jugular venous distension: no JVD Rate: regular rate Rhythm: regular rhythm GI: Inspection: non-distended GI Palp: Yes Soft to palpation and No Tenderness to palpation present (GI) Neuro: General: gait normal Cognition (Neuro): normal cognition Speech: normal speech Extrem: Left lower extremity: lower leg Details: pitting edema Details: 1+, ankle ( ) Details: normal to inspection and pitting edema Details: 1+; no tenderness, no ecchymosis and no crepitus and foot ( Dorsal foot wound, see below) Details: abnormal ROM of toe Details: pain with active ROM Location: of the 2nd digit, of the 3rd digit and of the 4th digit, vascular exam Details: dorsalis pedis pulse present and motor-sensory exam two point discrimination abnormal and light-touch abnormal 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 Dorsal foot ulcer measures 8.0x3.0x0.2 cm, 100% red/pink wound bed. ulcer on the distal aspect of the hallux measures 1.2x1.4x0.1 cm. No signs of infection. Moderate swelling. Mild erythema which is 100% relieved with elevation. Graft in place. Swelling/ erythema improved. No purulence. No malodor. Serous drainage. Psych: Mental Status: mental status grossly normal Affect: normal affect Thought content: Yes Normal thought content present Objective Data Meds/Results Medications: Active Medications Generic Name Dose Route Start Last Admin Trade Name Freq PRN Reason Stop Dose Admin Silver Nitrate 1 applic 12/02/20 12:22 Silvergel (Elta) 45 Ml TOPICAL 03/04/21 23:59 PRN PRN Wound Care Tolnaftate 1 applic 12/02/20 12:22 Tolnaftate 1% Powder 45 Gm Btl TOPICAL 03/04/21 23:59 PRN PRN Wound Care Wound Care/Dressing Products 1 patch 12/02/20 12:23 Mepilex Transfer Drsg 6x8 TOPICAL 03/04/21 23:59 PRN PRN Wound Care Wound Care/Dressing Products 1 each 12/02/20 12:23 Foam Bandage (Mepilex 4x4) Bandage TOPICAL 03/04/21 23:59 PRN PRN Wound Care
--- NOTE | 2021-02-10 09:17 | PM.PNORT ---
Progress Note: A&P Assessment and Plan (1) Necrotizing fasciitis of ankle and foot: Code(s): M72.6 - Necrotizing fasciitis Status: Acute Assessment and Plan: Eight days status post debridement of left foot with application of graft. Graft itself appears to be incorporating well. He does have some more swelling in the foot which may be related to increased activity and having the foot down. We discussed edema control as well as activity modifications in keeping the foot elevated. Pain medication refilled. New dressing applied. Keep dressing in place until follow-up visit in 4 days. Subjective Subjective Date/Time Seen: 02/10/21 09:17 Post Op day: 8 Principal diagnosis: Left foot necrotizing fasciitis Interval history: 1 week status post left foot debridement and application of graft. Patient states little bit more pain and swelling over the past couple days. He has been more active and has had the foot in a more dependent position. Exam Const: General: comfortable and no acute distress Nutritional Appearance: well nourished Orientation/consciousness: patient oriented x3 Limitations: no limitations HENMT: Head: normocephalic and atraumatic Ears: external ears normal Face and sinus: face symmetric Mouth: Yes moist mucous membranes Eyes: General: appearance normal, both eyes and all related structures Eyelids: eyelids normal Conjunctivae: conjunctivae normal Sclera: sclerae normal Neck: Neck: supple and no JVD Resp: Effort & Inspection: normal respiratory effort Cardio: Jugular venous distension: no JVD Rate: regular rate Rhythm: regular rhythm GI: Inspection: non-distended GI Palp: Yes Soft to palpation and No Tenderness to palpation present (GI) Neuro: General: gait normal Cognition (Neuro): normal cognition Speech: normal speech Extrem: Left lower extremity: lower leg Details: pitting edema Details: 1+, ankle ( ) Details: normal to inspection and pitting edema Details: 1+; no tenderness, no ecchymosis and no crepitus and foot ( Dorsal foot wound, see below) Details: abnormal ROM of toe Details: pain with active ROM Location: of the 2nd digit, of the 3rd digit and of the 4th digit, vascular exam Details: dorsalis pedis pulse present and motor-sensory exam two point discrimination abnormal and light-touch abnormal 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 Dorsal foot ulcer measures 8.2x3.0x0.2 cm, 100% red/pink wound bed. ulcer on the distal aspect of the hallux measures 0.9x0.6x0.2 cm. No signs of infection. Moderate swelling. Mild erythema which is 100% relieved with elevation. Graft in place. Swelling/ erythema improved. No purulence. No malodor. Serous drainage. Psych: Mental Status: mental status grossly normal Affect: normal affect Thought content: Yes Normal thought content present Objective Data Meds/Results Medications: Active Medications Generic Name Dose Route Start Last Admin Trade Name Freq PRN Reason Stop Dose Admin Silver Nitrate 1 applic 12/02/20 12:22 Silvergel (Elta) 45 Ml TOPICAL 03/04/21 23:59 PRN PRN Wound Care Tolnaftate 1 applic 12/02/20 12:22 Tolnaftate 1% Powder 45 Gm Btl TOPICAL 03/04/21 23:59 PRN PRN Wound Care Wound Care/Dressing Products 1 patch 12/02/20 12:23 Mepilex Transfer Drsg 6x8 TOPICAL 03/04/21 23:59 PRN PRN Wound Care Wound Care/Dressing Products 1 each 12/02/20 12:23 Foam Bandage (Mepilex 4x4) Bandage TOPICAL 03/04/21 23:59 PRN PRN Wound Care
--- NOTE | 2021-02-14 12:33 | PM.PNORT ---
Progress Note: A&P Assessment and Plan (1) Necrotizing fasciitis of ankle and foot: Code(s): M72.6 - Necrotizing fasciitis Status: Acute Assessment and Plan: 60-year-old male follows up today [facility] today 2 weeks status post graft application to the left dorsal foot wound. Patient reports having spent some time outside over the weekend. He does have increased drainage to the left foot and malodorous dressing. Upon removal of dressing, maggots were found on the wound bed. Wound bed was thoroughly cleansed. Graft covering was removed. Underlying skin was macerated due to abundance of moisture and drainage. Remaining sutures removed. Swelling noted. No purulence, no necrotic tissue. patient to begin dressing changes b.i.d.. Recommend antifungal powder to the entire dorsum of the foot as well as silver gel and transfer. Patient to continue his oral antibiotics. Patient to continue fracture boot and nonweightbearing in the left lower extremity. Recommend elevation. Patient to follow up on Saturday for re-evaluation of wound bed. We will re-evaluate patient on Saturday of next week. Subjective Subjective Date/Time Seen: 02/14/21 12:33 Patient follows up in the [facility] 2 weeks status post debridement and graft application of the left diabetic foot ulcer. Patient notes increased in drainage of the left foot. he also notes followed her coming from the wound bed. He reports having spent some time outside over the last several days. Review of Systems Constitutional: Constitutional: Reports no additional constitutional complaints, Denies excessive sweating and Denies fever(s) Eyes: Eyes: Reports no additional eye complaints and Denies change in vision ENT: Reports system reviewed and no additional complaints, except as documented and Reports Normal hearing present Cardiovascular: Cardiovascular: Denies chest pain, Denies diaphoresis, Denies leg ulcers and Denies dyspnea on exertion Respiratory: Respiratory: Reports no additional respiratory complaints, Denies cough and Denies dyspnea on exertion Gastrointestinal: Gastrointestinal: Reports no additional gastrointestinal complaints, Denies abdominal pain, Denies constipation, Denies nausea and Denies vomiting Genitourinary: Genitourinary: Reports no additional male genitourinary complaints, Denies hematuria and Denies urinary frequency Musculoskeletal: Musculoskeletal: Reports as per HPI Integumentary/Breasts: Skin/Breast: Reports as per HPI Neurologic: Reports Normal hearing present Psychiatric: Psychiatric: Reports no additional psychiatric complaints Endocrine: Endocrine: Reports no additional endocrine complaints, Denies change in body appearance, Denies excessive sweating, Denies polyphagia, Denies polydipsia and Denies polyuria Exam Const: General: comfortable and no acute distress Nutritional Appearance: well nourished Orientation/consciousness: patient oriented x3 Limitations: no limitations HENMT: Head: normocephalic and atraumatic Ears: external ears normal Face and sinus: face symmetric Mouth: Yes moist mucous membranes Eyes: General: appearance normal, both eyes and all related structures Eyelids: eyelids normal Conjunctivae: conjunctivae normal Sclera: sclerae normal Neck: Neck: supple and no JVD Resp: Effort & Inspection: normal respiratory effort Cardio: Jugular venous distension: no JVD Rate: regular rate Rhythm: regular rhythm GI: Inspection: non-distended GI Palp: Yes Soft to palpation and No Tenderness to palpation present (GI) Neuro: General: gait normal Cognition (Neuro): normal cognition Speech: normal speech Extrem: Left lower extremity: lower leg Details: pitting edema Details: 1+, ankle ( ) Details: normal to inspection and pitting edema Details: 1+; no tenderness, no ecchymosis and no crepitus and foot ( Dorsal foot wound, see below) Details: abnormal ROM of toe Details: pain with active ROM
--- NOTE | 2021-02-17 09:08 | PM.IMHP ---
H&P: HPI History of Present Illness Date/Time: 02/17/21 09:08 Chief Complaint: Left foot wound with necrotizing fasciitis. Narrative: Patient presents to [facility] outpatient wound clinic for follow-up of left foot. He has been doing dressing changes daily in the interim. He notes no new complaints. He has seen an improvement in the swelling and redness. Review of Systems Constitutional: Constitutional: Reports no additional constitutional complaints, Denies excessive sweating and Denies fever(s) Eyes: Eyes: Reports no additional eye complaints and Denies change in vision ENT: Reports system reviewed and no additional complaints, except as documented and Reports Normal hearing present Cardiovascular: Cardiovascular: Denies chest pain, Denies diaphoresis, Denies leg ulcers and Denies dyspnea on exertion Respiratory: Respiratory: Reports no additional respiratory complaints, Denies cough and Denies dyspnea on exertion Gastrointestinal: Gastrointestinal: Reports no additional gastrointestinal complaints, Denies abdominal pain, Denies constipation, Denies nausea and Denies vomiting Genitourinary: Genitourinary: Reports no additional male genitourinary complaints, Denies hematuria and Denies urinary frequency Musculoskeletal: Musculoskeletal: Reports as per HPI Integumentary/Breasts: Skin/Breast: Reports as per HPI Neurologic: Reports Normal hearing present Psychiatric: Psychiatric: Reports no additional psychiatric complaints Endocrine: Endocrine: Reports no additional endocrine complaints, Denies change in body appearance, Denies excessive sweating, Denies polyphagia, Denies polydipsia and Denies polyuria [facility] Past Medical History Medical History Abscess of foot including toes Alcoholic cirrhosis of liver He has abstained from alcohol for at least 2 years as of July 2020. Essential hypertension Fall Gastroesophageal reflux disease Hyponatremia Left ankle pain Necrotizing fasciitis of ankle and foot Paroxysmal atrial fibrillation Surgical History Surgical History History of surgery on arm (~2012) ORIF right humerus fracture. History of surgery on wrist History of ventral hernia repair (~11/2013) Subsequent abdominal wall exploration with drainage of a seroma at the same site in 03/2014. Family History Family History Mother Hypertension Family history of diabetes mellitus in first degree relative Diabetes mellitus Father Family history of pancreatic cancer Social History Social History Social History: The patient lives alone in [place]. Retired from [employer]. He has a longstanding history of alcohol abuse. He also endorses marijuana use intermittently in a social setting. He designates his daughter Shawna as his surrogate decision maker and wishes to be a full code. Smoking status: Never smoker Alcohol intake: former Drinks per week: 1 Alcohol use details: QUIT EXCESSIVE ETOH 2017 Substance use: current Substance use type: marijuana Other substance usage details: EDIBLES, SMOKES MARIJUANA Last use: 12/27/20 Gender identity (if verbalized by the patient): Male Spiritual care concerns: No Meds Home Medications and Allergies Home Medications Medication Instructions Recorded Confirmed Type lactulose 10 gram/15 mL oral 5 ml PO DAILY ml 08/19/19 02/01/21 History solution omeprazole 20 mg capsule,delayed 40 mg PO BID cap 08/19/19 02/01/21 History release spironolactone 100 mg tablet 100 mg PO DAILY 08/19/19 02/01/21 History thiamine HCl (vitamin B1) 250 mg 250 mg PO DAILY 08/19/19 02/01/21 History tablet nadolol 40 mg PO DAILY 10/10/20 02/02/21 History furosemide 40 mg tablet 40 mg PO BID tablet 10/25/20 02/01/21 History ci
--- NOTE | 2021-02-21 08:45 | PM.PNORT ---
Progress Note: A&P Assessment and Plan (1) Necrotizing fasciitis of ankle and foot: Code(s): M72.6 - Necrotizing fasciitis Status: Acute Assessment and Plan: 2 weeks, 5 days status post debridement application graft left foot. Clinical course complicated by insect infestation noted 1 week ago. Patient increased dressing changes to BID. Improvement in wound bed noted. No new concerns. No necrosis or malodor today. No purulence. Continue with daily dressing changes. Encouraged washing/showering. Continue PWB with fracture boot. Follow up Saturday. Reviewed signs/symptoms of infection to report to ED immediately. (2) Neuropathic ulcer of foot: Qualifiers: Laterality: right Non-pressure ulcer stage: with fat layer exposed Qualified Code(s): L97.512 - Non-pressure chronic ulcer of other part of right foot with fat layer exposed Code(s): L97.509 - Non-pressure chronic ulcer of other part of unspecified foot with unspecified severity Status: Acute Subjective Subjective Date/Time Seen: 02/21/21 08:45 Interval history: Patient follows up in the [facility] 2 weeks, 5 days status post debridement and graft application of the left diabetic foot ulcer. Patient has increased dressing changes to BID. No new concerns. Notes improvement in wound bed. Review of Systems Constitutional: Constitutional: Reports no additional constitutional complaints, Denies excessive sweating and Denies fever(s) Eyes: Eyes: Reports no additional eye complaints and Denies change in vision ENT: Reports system reviewed and no additional complaints, except as documented and Reports Normal hearing present Cardiovascular: Cardiovascular: Denies chest pain, Denies diaphoresis, Denies leg ulcers and Denies dyspnea on exertion Respiratory: Respiratory: Reports no additional respiratory complaints, Denies cough and Denies dyspnea on exertion Gastrointestinal: Gastrointestinal: Reports no additional gastrointestinal complaints, Denies abdominal pain, Denies constipation, Denies nausea and Denies vomiting Genitourinary: Genitourinary: Reports no additional male genitourinary complaints, Denies hematuria and Denies urinary frequency Musculoskeletal: Musculoskeletal: Reports as per HPI Integumentary/Breasts: Skin/Breast: Reports as per HPI Neurologic: Reports Normal hearing present Psychiatric: Psychiatric: Reports no additional psychiatric complaints Endocrine: Endocrine: Reports no additional endocrine complaints, Denies change in body appearance, Denies excessive sweating, Denies polyphagia, Denies polydipsia and Denies polyuria Exam Const: General: comfortable and no acute distress Nutritional Appearance: well nourished Orientation/consciousness: patient oriented x3 Limitations: no limitations HENMT: Head: normocephalic and atraumatic Ears: external ears normal Face and sinus: face symmetric Mouth: Yes moist mucous membranes Eyes: General: appearance normal, both eyes and all related structures Eyelids: eyelids normal Conjunctivae: conjunctivae normal Sclera: sclerae normal Neck: Neck: supple and no JVD Resp: Effort & Inspection: normal respiratory effort Cardio: Jugular venous distension: no JVD Rate: regular rate Rhythm: regular rhythm GI: Inspection: non-distended GI Palp: Yes Soft to palpation and No Tenderness to palpation present (GI) Neuro: General: gait normal Cognition (Neuro): normal cognition Speech: normal speech Extrem: Left lower extremity: lower leg Details: pitting edema Details: 1+, ankle ( ) Details: normal to inspection and pitting edema Details: 1+; no tenderness, no ecchymosis and no crepitus and foot ( Dorsal foot wound, see below) Details: abnormal ROM of toe Details: pain with active ROM Location: of the 2nd digit, of the 3rd digit and of the 4th digit, vascular exam Details: dorsalis pedis pulse present and motor-sensory exam two point discrimination abnormal and light-touch
--- NOTE | 2021-02-28 09:19 | PM.PNORT ---
Progress Note: A&P Assessment and Plan (1) Necrotizing fasciitis of ankle and foot: Code(s): M72.6 - Necrotizing fasciitis Status: Acute Assessment and Plan: 3 weeks, 5 days status post debridement application graft left foot. Clinical course complicated by insect infestation noted 2 weeks ago. Patient now with dressing changes 1 time per day. Improvement in wound bed noted. No new concerns. Wound measures 9.5x3.0x0.3cm. No necrosis or malodor today. No purulence. Continue with daily dressing changes. Encouraged washing/showering. Continue PWB with fracture boot. Follow up in 1 week for reevaluation. May consider repeat grafting in future to expedite wound healing process. Reviewed signs/symptoms of infection to report to ED immediately. (2) Neuropathic ulcer of foot: Qualifiers: Laterality: right Non-pressure ulcer stage: with fat layer exposed Qualified Code(s): L97.512 - Non-pressure chronic ulcer of other part of right foot with fat layer exposed Code(s): L97.509 - Non-pressure chronic ulcer of other part of unspecified foot with unspecified severity Status: Acute Subjective Subjective Date/Time Seen: 02/28/21 09:19 Patient follows up in the [place] wound clinic 3 weeks, 5 days status post debridement and graft application of the left diabetic foot ulcer. He has been performing daily dressing changes. No new concerns. Notes improvement in wound bed. Review of Systems Constitutional: Constitutional: Reports no additional constitutional complaints, Denies excessive sweating and Denies fever(s) Eyes: Eyes: Reports no additional eye complaints and Denies change in vision ENT: Reports system reviewed and no additional complaints, except as documented and Reports Normal hearing present Cardiovascular: Cardiovascular: Denies chest pain, Denies diaphoresis, Denies leg ulcers and Denies dyspnea on exertion Respiratory: Respiratory: Reports no additional respiratory complaints, Denies cough and Denies dyspnea on exertion Gastrointestinal: Gastrointestinal: Reports no additional gastrointestinal complaints, Denies abdominal pain, Denies constipation, Denies nausea and Denies vomiting Genitourinary: Genitourinary: Reports no additional male genitourinary complaints, Denies hematuria and Denies urinary frequency Musculoskeletal: Musculoskeletal: Reports as per HPI Integumentary/Breasts: Skin/Breast: Reports as per HPI Neurologic: Reports Normal hearing present Psychiatric: Psychiatric: Reports no additional psychiatric complaints Endocrine: Endocrine: Reports no additional endocrine complaints, Denies change in body appearance, Denies excessive sweating, Denies polyphagia, Denies polydipsia and Denies polyuria Exam Const: General: comfortable and no acute distress Nutritional Appearance: well nourished Orientation/consciousness: patient oriented x3 Limitations: no limitations HENMT: Head: normocephalic and atraumatic Ears: external ears normal Face and sinus: face symmetric Mouth: Yes moist mucous membranes Eyes: General: appearance normal, both eyes and all related structures Eyelids: eyelids normal Conjunctivae: conjunctivae normal Sclera: sclerae normal Neck: Neck: supple and no JVD Resp: Effort & Inspection: normal respiratory effort Cardio: Jugular venous distension: no JVD Rate: regular rate Rhythm: regular rhythm GI: Inspection: non-distended GI Palp: Yes Soft to palpation and No Tenderness to palpation present (GI) Neuro: General: gait normal Cognition (Neuro): normal cognition Speech: normal speech Extrem: Left lower extremity: lower leg Details: pitting edema Details: 1+, ankle ( ) Details: normal to inspection and pitting edema Details: 1+; no tenderness, no ecchymosis and no crepitus and foot ( Dorsal foot wound, see below) Details: abnormal ROM of toe Details: pain with active ROM Location: of the 2nd digit, of the 3rd digit and of the 4th digit, vascular e
== END 2021-03-02 23:59 | disposition home or self-care (01) ==
LOC: ANHWOC 07:09
PROVIDERS: Family Provider Internal Medicine; PCP Internal Medicine; Referring Provider Orthopaedic Surgery; Visit Provider Nurse Practitioner Family
DX: L97.529 Non-pressure chronic ulcer of other part of left foot with unspecified severity (principal)
CPT/HCPCS: 99212; 99213; A9270; G0463; L2116

== ENCOUNTER 2021-05-30 07:19 | Outpatient (RCR) | payer MEDICARE, SELFPAY ==
[2021-03-03 00:03] VITALS: BMI 25.8
--- NOTE | 2021-03-07 08:28 | PM.PNORT ---
Progress Note: A&P Assessment and Plan (1) Necrotizing fasciitis of ankle and foot: Code(s): M72.6 - Necrotizing fasciitis Status: Acute Assessment and Plan: 4 weeks, 5 days status post debridement application graft left foot. Clinical course complicated by insect infestation noted 3 weeks ago. Patient now with dressing changes 1 time per day. Improvement in wound bed noted. No new concerns. Wound measures 9.5x3.0x0.3cm. No necrosis or malodor today. No purulence. Wound shows good granulation. No signs of infection. Continue with daily dressing changes. Encouraged washing/showering. Continue PWB with fracture boot. Follow up in 1 week for reevaluation With wound care team. follow-up in 2 weeks for re-evaluation with orthopedic team. May consider repeat grafting in future to expedite wound healing process. Reviewed signs/symptoms of infection to report to ED immediately. 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 Patient states he has been working on edema control in the interim. No new complaints. Review of Systems Constitutional: Constitutional: Reports no additional constitutional complaints, Denies excessive sweating and Denies fever(s) Eyes: Eyes: Reports no additional eye complaints and Denies change in vision ENT: Reports system reviewed and no additional complaints, except as documented and Reports Normal hearing present Cardiovascular: Cardiovascular: Denies chest pain, Denies diaphoresis, Denies leg ulcers and Denies dyspnea on exertion Respiratory: Respiratory: Reports no additional respiratory complaints, Denies cough and Denies dyspnea on exertion Gastrointestinal: Gastrointestinal: Reports no additional gastrointestinal complaints, Denies abdominal pain, Denies constipation, Denies nausea and Denies vomiting Genitourinary: Genitourinary: Reports no additional male genitourinary complaints, Denies hematuria and Denies urinary frequency Musculoskeletal: Musculoskeletal: Reports as per HPI Integumentary/Breasts: Skin/Breast: Reports as per HPI Neurologic: Reports Normal hearing present Psychiatric: Psychiatric: Reports no additional psychiatric complaints Endocrine: Endocrine: Reports no additional endocrine complaints, Denies change in body appearance, Denies excessive sweating, Denies polyphagia, Denies polydipsia and Denies polyuria Exam Const: General: comfortable and no acute distress Nutritional Appearance: well nourished Orientation/consciousness: patient oriented x3 Limitations: no limitations HENMT: Head: normocephalic and atraumatic Ears: external ears normal Face and sinus: face symmetric Mouth: Yes moist mucous membranes Eyes: General: appearance normal, both eyes and all related structures Eyelids: eyelids normal Conjunctivae: conjunctivae normal Sclera: sclerae normal Neck: Neck: supple and no JVD Resp: Effort & Inspection: normal respiratory effort Cardio: Jugular venous distension: no JVD Rate: regular rate Rhythm: regular rhythm GI: Inspection: non-distended GI Palp: Yes Soft to palpation and No Tenderness to palpation present (GI) Neuro: General: gait normal Cognition (Neuro): normal cognition Speech: normal speech Extrem: Left lower extremity: lower leg Details: pitting edema Details: 1+, ankle ( ) Details: normal to inspection and pitting edema Details: 1+; no tenderness, no ecchymosis and no cr
--- NOTE | 2021-03-21 08:28 | PM.PNORT ---
Progress Note: A&P Assessment and Plan (1) Necrotizing fasciitis of ankle and foot: Code(s): M72.6 - Necrotizing fasciitis Status: Acute Assessment and Plan: 6 weeks, 5 days status post debridement application graft left foot. Clinical course complicated by insect infestation noted several weeks ago. Patient now with dressing changes 1 time per day. Improvement in wound bed noted. No new concerns. Wound measures 9..5x2.8x0.3 cm. No necrosis or malodor today. No purulence. Wound shows good granulation. No signs of infection. Continue with daily dressing changes. Encouraged washing/showering. Continue PWB with fracture boot. Follow up in 1 week for reevaluation. Reviewed signs/symptoms of infection to report to ED immediately. (2) Neuropathic ulcer of foot: Qualifiers: Laterality: right Non-pressure ulcer stage: with fat layer exposed Qualified Code(s): L97.512 - Non-pressure chronic ulcer of other part of right foot with fat layer exposed Code(s): L97.509 - Non-pressure chronic ulcer of other part of unspecified foot with unspecified severity Status: Acute Subjective Subjective Date/Time Seen: 03/21/21 08:28 Interval history: Patient returns to [facility] outpatient wound clinic for re-evaluation of left foot necrotizing fasciitis. He is now 11 weeks, 1 day s/p 2nd/3rd ray amp and 6 weeks, 5 days s/p debridement and graft application. No new complaints. Review of Systems Constitutional: Constitutional: Reports no additional constitutional complaints, Denies excessive sweating and Denies fever(s) Eyes: Eyes: Reports no additional eye complaints and Denies change in vision ENT: Reports system reviewed and no additional complaints, except as documented and Reports Normal hearing present Cardiovascular: Cardiovascular: Denies chest pain, Denies diaphoresis, Denies leg ulcers and Denies dyspnea on exertion Respiratory: Respiratory: Reports no additional respiratory complaints, Denies cough and Denies dyspnea on exertion Gastrointestinal: Gastrointestinal: Reports no additional gastrointestinal complaints, Denies abdominal pain, Denies constipation, Denies nausea and Denies vomiting Genitourinary: Genitourinary: Reports no additional male genitourinary complaints, Denies hematuria and Denies urinary frequency Musculoskeletal: Musculoskeletal: Reports as per HPI Integumentary/Breasts: Skin/Breast: Reports as per HPI Neurologic: Reports Normal hearing present Psychiatric: Psychiatric: Reports no additional psychiatric complaints Endocrine: Endocrine: Reports no additional endocrine complaints, Denies change in body appearance, Denies excessive sweating, Denies polyphagia, Denies polydipsia and Denies polyuria Exam Const: General: comfortable and no acute distress Nutritional Appearance: well nourished Orientation/consciousness: patient oriented x3 Limitations: no limitations HENMT: Head: normocephalic and atraumatic Ears: external ears normal Face and sinus: face symmetric Mouth: Yes moist mucous membranes Eyes: General: appearance normal, both eyes and all related structures Eyelids: eyelids normal Conjunctivae: conjunctivae normal Sclera: sclerae normal Neck: Neck: supple and no JVD Resp: Effort & Inspection: normal respiratory effort Cardio: Jugular venous distension: no JVD Rate: regular rate Rhythm: regular rhythm GI: Inspection: non-distended GI Palp: Yes Soft to palpation and No Tenderness to palpation present (GI) Neuro: General: gait normal Cognition (Neuro): normal cognition Speech: normal speech Extrem: Left lower extremity: lower leg Details: pitting edema Details: 1+, ankle ( ) Details: normal to inspection and pitting edema Details: 1+; no tenderness, no ecchymosis and no crepitus and foot ( Dorsal foot wound, see below) Details: abnormal ROM of toe Details: pain with active ROM Location: of the 2nd digit, of the 3rd digit and of the 4th digit, v
--- NOTE | 2021-04-04 09:36 | PM.IMHP ---
H&P: HPI History of Present Illness Date/Time: 04/04/21 09:36 Chief Complaint: Left foot wound Narrative: 60-year-old male returns [facility] outpatient wound clinic for re-evaluation of left foot necrotizing fasciitis. He is 13 weeks status post 2nd 3rd ray amputation and 8 weeks, 5 days status post debridement in graft application of the left dorsal foot. No new complaints at this time. Patient does report a fall on 03/22 which resulted in a left pre patella knee wound. No fever, chills, night sweats, nausea, vomiting or diarrhea. No pain with ambulation. No difficulty with flexion extension of the left knee. Review of Systems Constitutional: Constitutional: Reports no additional constitutional complaints, Denies excessive sweating and Denies fever(s) Eyes: Eyes: Reports no additional eye complaints and Denies change in vision ENT: Reports system reviewed and no additional complaints, except as documented and Reports Normal hearing present Cardiovascular: Cardiovascular: Denies chest pain, Denies diaphoresis, Denies leg ulcers and Denies dyspnea on exertion Respiratory: Respiratory: Reports no additional respiratory complaints, Denies cough and Denies dyspnea on exertion Gastrointestinal: Gastrointestinal: Reports no additional gastrointestinal complaints, Denies abdominal pain, Denies constipation, Denies nausea and Denies vomiting Genitourinary: Genitourinary: Reports no additional male genitourinary complaints, Denies hematuria and Denies urinary frequency Musculoskeletal: Musculoskeletal: Reports as per HPI Integumentary/Breasts: Skin/Breast: Reports as per HPI Neurologic: Reports Normal hearing present Psychiatric: Psychiatric: Reports no additional psychiatric complaints Endocrine: Endocrine: Reports no additional endocrine complaints, Denies change in body appearance, Denies excessive sweating, Denies polyphagia, Denies polydipsia and Denies polyuria [facility] Past Medical History Medical History (Updated 04/04/21 @ 09:44 by JAVAN Shah) Abrasion, knee Abscess of foot including toes Alcoholic cirrhosis of liver He has abstained from alcohol for at least 2 years as of July 2020. Essential hypertension Fall Gastroesophageal reflux disease Hyponatremia Left ankle pain Necrotizing fasciitis of ankle and foot Paroxysmal atrial fibrillation Surgical History Surgical History History of surgery on arm (~2012) ORIF right humerus fracture. History of surgery on wrist History of ventral hernia repair (~11/2013) Subsequent abdominal wall exploration with drainage of a seroma at the same site in 03/2014. Family History Family History Mother Hypertension Family history of diabetes mellitus in first degree relative Diabetes mellitus Father Family history of pancreatic cancer Social History Social History Social History: The patient lives alone in [place]. Retired from [employer]. He has a longstanding history of alcohol abuse. He also endorses marijuana use intermittently in a social setting. He designates his daughter Shawna as his surrogate decision maker and wishes to be a full code. Smoking status: Never smoker Alcohol intake: former Drinks per week: 1 Alcohol use details: QUIT EXCESSIVE ETOH 2017 Substance use: current Substance use type: marijuana Other substance usage details: EDIBLES, SMOKES MARIJUANA Last use: 12/27/20 Gender identity (if verbalized by the patient): Male Sexual Orientation (if Verbalized by the Patient): Straight or Heterosexual Spiritual care concerns: No Meds Home Medications and Allergies Home Medications Medication Instructions Recorded Confirmed Type lactulose 10 gram/15 mL oral 5 ml PO DAILY ml 08/19/19 03/07/21 History solution omeprazole 20 mg caps
--- NOTE | 2021-04-11 08:50 | PM.IMHP ---
H&P: HPI History of Present Illness Date/Time: 04/11/21 08:50 Chief Complaint: Left foot necrotizing fasciitis, left knee abrasion Narrative: 52-year-old gentleman returns to the [facility] for re-evaluation of the left foot and left knee. Silver gel and Marlen to the left foot daily. He has noted mild fluctuations and swelling but no drainage. Left knee with increased swelling and redness over the anterior and inferior aspects just below the abrasion. He is applying silver gel and a Band-Aid daily. He states there is no drainage. Review of Systems Constitutional: Constitutional: Reports no additional constitutional complaints, Denies excessive sweating and Denies fever(s) Eyes: Eyes: Reports no additional eye complaints and Denies change in vision ENT: Reports system reviewed and no additional complaints, except as documented and Reports Normal hearing present Cardiovascular: Cardiovascular: Denies chest pain, Denies diaphoresis, Denies leg ulcers and Denies dyspnea on exertion Respiratory: Respiratory: Reports no additional respiratory complaints, Denies cough and Denies dyspnea on exertion Gastrointestinal: Gastrointestinal: Reports no additional gastrointestinal complaints, Denies abdominal pain, Denies constipation, Denies nausea and Denies vomiting Genitourinary: Genitourinary: Reports no additional male genitourinary complaints, Denies hematuria and Denies urinary frequency Musculoskeletal: Musculoskeletal: Reports as per HPI Integumentary/Breasts: Skin/Breast: Reports as per HPI Neurologic: Reports Normal hearing present Psychiatric: Psychiatric: Reports no additional psychiatric complaints Endocrine: Endocrine: Reports no additional endocrine complaints, Denies change in body appearance, Denies excessive sweating, Denies polyphagia, Denies polydipsia and Denies polyuria [facility] Past Medical History Medical History Abrasion, knee Abscess of foot including toes Alcoholic cirrhosis of liver He has abstained from alcohol for at least 2 years as of July 2020. Essential hypertension Fall Gastroesophageal reflux disease Hyponatremia Left ankle pain Necrotizing fasciitis of ankle and foot Paroxysmal atrial fibrillation Surgical History Surgical History History of surgery on arm (~2012) ORIF right humerus fracture. History of surgery on wrist History of ventral hernia repair (~11/2013) Subsequent abdominal wall exploration with drainage of a seroma at the same site in 03/2014. Family History Family History Mother Hypertension Family history of diabetes mellitus in first degree relative Diabetes mellitus Father Family history of pancreatic cancer Social History Social History Social History: The patient lives alone in [place]. Retired from [employer]. He has a longstanding history of alcohol abuse. He also endorses marijuana use intermittently in a social setting. He designates his daughter Shawna as his surrogate decision maker and wishes to be a full code. Smoking status: Never smoker Alcohol intake: former Drinks per week: 1 Alcohol use details: QUIT EXCESSIVE ETOH 2017 Substance use: current Substance use type: marijuana Other substance usage details: EDIBLES, SMOKES MARIJUANA Last use: 12/27/20 Gender identity (if verbalized by the patient): Male Sexual Orientation (if Verbalized by the Patient): Straight or Heterosexual Spiritual care concerns: No Meds Home Medications and Allergies Home Medications Medication Instructions Recorded Confirmed Type lactulose 10 gram/15 mL oral 5 ml PO DAILY ml 08/19/19 03/07/21 History solution omeprazole 20 mg capsule,delayed 40 mg PO BID cap 08/19/19 03/07/21 History
--- NOTE | 2021-04-18 08:55 | PM.IMHP ---
H&P: HPI History of Present Illness Date/Time: 04/18/21 08:55 Chief Complaint: Chronic left dorsal foot ulcer Narrative: 52-year-old gentleman returns to the [facility] for re-evaluation of the left foot and left knee. Silver gel and Marlne to the left foot daily. He has noted mild improvement in swelling and less drainage. Left knee with decreased in swelling and redness over the anterior and inferior aspects as previously noted below the abrasion. He is applying silver gel and a Band-Aid daily. Review of Systems Constitutional: Constitutional: Reports no additional constitutional complaints, Denies excessive sweating and Denies fever(s) Eyes: Eyes: Reports no additional eye complaints and Denies change in vision ENT: Reports system reviewed and no additional complaints, except as documented and Reports Normal hearing present Cardiovascular: Cardiovascular: Denies chest pain, Denies diaphoresis, Denies leg ulcers and Denies dyspnea on exertion Respiratory: Respiratory: Reports no additional respiratory complaints, Denies cough and Denies dyspnea on exertion Gastrointestinal: Gastrointestinal: Reports no additional gastrointestinal complaints, Denies abdominal pain, Denies constipation, Denies nausea and Denies vomiting Genitourinary: Genitourinary: Reports no additional male genitourinary complaints, Denies hematuria and Denies urinary frequency Musculoskeletal: Musculoskeletal: Reports as per HPI Integumentary/Breasts: Skin/Breast: Reports as per HPI Neurologic: Reports Normal hearing present Psychiatric: Psychiatric: Reports no additional psychiatric complaints Endocrine: Endocrine: Reports no additional endocrine complaints, Denies change in body appearance, Denies excessive sweating, Denies polyphagia, Denies polydipsia and Denies polyuria [facility] Past Medical History Medical History Abrasion, knee Abscess of foot including toes Alcoholic cirrhosis of liver He has abstained from alcohol for at least 2 years as of July 2020. Essential hypertension Fall Gastroesophageal reflux disease Hyponatremia Left ankle pain Necrotizing fasciitis of ankle and foot Paroxysmal atrial fibrillation Surgical History Surgical History History of surgery on arm (~2012) ORIF right humerus fracture. History of surgery on wrist History of ventral hernia repair (~11/2013) Subsequent abdominal wall exploration with drainage of a seroma at the same site in 03/2014. Family History Family History Mother Hypertension Family history of diabetes mellitus in first degree relative Diabetes mellitus Father Family history of pancreatic cancer Social History Social History Social History: The patient lives alone in [place]. Retired from [employer]. He has a longstanding history of alcohol abuse. He also endorses marijuana use intermittently in a social setting. He designates his daughter Shawna as his surrogate decision maker and wishes to be a full code. Smoking status: Never smoker Alcohol intake: former Drinks per week: 1 Alcohol use details: QUIT EXCESSIVE ETOH 2018 Substance use: current Substance use type: marijuana Other substance usage details: EDIBLES, SMOKES MARIJUANA Last use: 12/27/20 Gender identity (if verbalized by the patient): Male Sexual Orientation (if Verbalized by the Patient): Straight or Heterosexual Spiritual care concerns: No Meds Home Medications and Allergies Home Medications Medication Instructions Recorded Confirmed Type lactulose 10 gram/15 mL oral 5 ml PO DAILY ml 08/19/19 03/07/21 History solution omeprazole 20 mg capsule,delayed 40 mg PO BID cap 08/19/19 03/07/21 History release spironolactone 100 mg tabl
--- NOTE | 2021-05-02 08:57 | PM.IMHP ---
H&P: HPI History of Present Illness Date/Time: 05/02/21 08:57 Chief Complaint: Left knee and left foot wounds Narrative: 60-year-old gentleman returns to the [facility] for re-evaluation of the left foot and left knee wounds. Silver gel and Marlen to the left foot daily. He has noted continued improvement in swelling and less drainage. Left knee without swelling, erythema. He is applying silver gel and a Band-Aid daily. Review of Systems Constitutional: Constitutional: Reports no additional constitutional complaints, Denies excessive sweating and Denies fever(s) Eyes: Eyes: Reports no additional eye complaints and Denies change in vision ENT: Reports system reviewed and no additional complaints, except as documented and Reports Normal hearing present Cardiovascular: Cardiovascular: Denies chest pain, Denies diaphoresis, Denies leg ulcers and Denies dyspnea on exertion Respiratory: Respiratory: Reports no additional respiratory complaints, Denies cough and Denies dyspnea on exertion Gastrointestinal: Gastrointestinal: Reports no additional gastrointestinal complaints, Denies abdominal pain, Denies constipation, Denies nausea and Denies vomiting Genitourinary: Genitourinary: Reports no additional male genitourinary complaints, Denies hematuria and Denies urinary frequency Musculoskeletal: Musculoskeletal: Reports as per HPI Integumentary/Breasts: Skin/Breast: Reports as per HPI Neurologic: Reports Normal hearing present Psychiatric: Psychiatric: Reports no additional psychiatric complaints Endocrine: Endocrine: Reports no additional endocrine complaints, Denies change in body appearance, Denies excessive sweating, Denies polyphagia, Denies polydipsia and Denies polyuria [facility] Past Medical History Medical History Abrasion, knee Abscess of foot including toes Alcoholic cirrhosis of liver He has abstained from alcohol for at least 2 years as of July 2020. Essential hypertension Fall Gastroesophageal reflux disease Hyponatremia Left ankle pain Necrotizing fasciitis of ankle and foot Paroxysmal atrial fibrillation Surgical History Surgical History History of surgery on arm (~2012) ORIF right humerus fracture. History of surgery on wrist History of ventral hernia repair (~11/2013) Subsequent abdominal wall exploration with drainage of a seroma at the same site in 03/2014. Family History Family History Mother Hypertension Family history of diabetes mellitus in first degree relative Diabetes mellitus Father Family history of pancreatic cancer Social History Social History Social History: The patient lives alone in [place]. Retired from [employer]. He has a longstanding history of alcohol abuse. He also endorses marijuana use intermittently in a social setting. He designates his daughter Shawna as his surrogate decision maker and wishes to be a full code. Smoking status: Never smoker Alcohol intake: former Drinks per week: 1 Alcohol use details: QUIT EXCESSIVE ETOH 2017 Substance use: current Substance use type: marijuana Other substance usage details: EDIBLES, SMOKES MARIJUANA Last use: 12/27/20 Gender identity (if verbalized by the patient): Male Sexual Orientation (if Verbalized by the Patient): Straight or Heterosexual Spiritual care concerns: No Meds Home Medications and Allergies Home Medications Medication Instructions Recorded Confirmed Type omeprazole 20 mg capsule,delayed 40 mg PO BID cap 08/19/19 04/25/21 History release spironolactone 100 mg tablet 100 mg PO DAILY 08/19/19 04/25/21 History thiamine HCl (vitamin B1) 250 mg 250 mg PO DAILY 08/19/19 04/25/21 History tablet nadolol 40 mg PO DAILY 10/10/20 09
--- NOTE | 2021-05-09 09:47 | PM.IMHP ---
H&P: HPI History of Present Illness Date/Time: 05/09/21 09:47 Chief Complaint: Left diabetic foot ulcer /necrotizing fasciitis. Left knee wound Narrative: return for re-evaluation at the [facility]. Patient notes no interim problems. No drainage from the knee. He has been doing dressing changes for the foot. Three months status post debridement , application of graft of left foot. Review of Systems Constitutional: Constitutional: Reports no additional constitutional complaints, Denies excessive sweating and Denies fever(s) Eyes: Eyes: Reports no additional eye complaints and Denies change in vision ENT: Reports system reviewed and no additional complaints, except as documented and Reports Normal hearing present Cardiovascular: Cardiovascular: Denies chest pain, Denies diaphoresis, Denies leg ulcers and Denies dyspnea on exertion Respiratory: Respiratory: Reports no additional respiratory complaints, Denies cough and Denies dyspnea on exertion Gastrointestinal: Gastrointestinal: Reports no additional gastrointestinal complaints, Denies abdominal pain, Denies constipation, Denies nausea and Denies vomiting Genitourinary: Genitourinary: Reports no additional male genitourinary complaints, Denies hematuria and Denies urinary frequency Musculoskeletal: Musculoskeletal: Reports as per HPI Integumentary/Breasts: Skin/Breast: Reports as per HPI Neurologic: Reports Normal hearing present Psychiatric: Psychiatric: Reports no additional psychiatric complaints Endocrine: Endocrine: Reports no additional endocrine complaints, Denies change in body appearance, Denies excessive sweating, Denies polyphagia, Denies polydipsia and Denies polyuria [facility] Past Medical History Medical History Abrasion, knee Abscess of foot including toes Alcoholic cirrhosis of liver He has abstained from alcohol for at least 2 years as of July 2020. Essential hypertension Fall Gastroesophageal reflux disease Hyponatremia Left ankle pain Necrotizing fasciitis of ankle and foot Paroxysmal atrial fibrillation Surgical History Surgical History History of surgery on arm (~2012) ORIF right humerus fracture. History of surgery on wrist History of ventral hernia repair (~11/2013) Subsequent abdominal wall exploration with drainage of a seroma at the same site in 03/2014. Family History Family History Mother Hypertension Family history of diabetes mellitus in first degree relative Diabetes mellitus Father Family history of pancreatic cancer Social History Social History Social History: The patient lives alone in [place]. Retired from [employer]. He has a longstanding history of alcohol abuse. He also endorses marijuana use intermittently in a social setting. He designates his daughter Shawna as his surrogate decision maker and wishes to be a full code. Smoking status: Never smoker Alcohol intake: former Drinks per week: 1 Alcohol use details: QUIT EXCESSIVE ETOH 2017 Substance use: current Substance use type: marijuana Other substance usage details: EDIBLES, SMOKES MARIJUANA Last use: 12/27/20 Gender identity (if verbalized by the patient): Male Sexual Orientation (if Verbalized by the Patient): Straight or Heterosexual Spiritual care concerns: No Meds Home Medications and Allergies Home Medications Medication Instructions Recorded Confirmed Type omeprazole 20 mg capsule,delayed 40 mg PO BID cap 08/19/19 04/25/21 History release spironolactone 100 mg tablet 100 mg PO DAILY 08/19/19 04/25/21 History thiamine HCl (vitamin B1) 250 mg 250 mg PO DAILY 08/19/19 04/25/21 History tablet nadolol 40 mg PO DAILY 10/10/20 04/25/21 History gabapentin 600
--- NOTE | 2021-05-23 08:41 | PM.IMHP ---
H&P: HPI History of Present Illness Date/Time: 05/23/21 08:41 Chief Complaint: Left Foot Wound Narrative: 60 year old male presents today for re-evaluation of his left dorsal foot wound at the [facility]. No new complaints. Knee wound continues to be well healed. Tolerating daily dressing changes at home without concern. Review of Systems Constitutional: Constitutional: Reports no additional constitutional complaints, Denies excessive sweating and Denies fever(s) Eyes: Eyes: Reports no additional eye complaints and Denies change in vision ENT: Reports system reviewed and no additional complaints, except as documented and Reports Normal hearing present Cardiovascular: Cardiovascular: Denies chest pain, Denies diaphoresis, Denies leg ulcers and Denies dyspnea on exertion Respiratory: Respiratory: Reports no additional respiratory complaints, Denies cough and Denies dyspnea on exertion Gastrointestinal: Gastrointestinal: Reports no additional gastrointestinal complaints, Denies abdominal pain, Denies constipation, Denies nausea and Denies vomiting Genitourinary: Genitourinary: Reports no additional male genitourinary complaints, Denies hematuria and Denies urinary frequency Musculoskeletal: Musculoskeletal: Reports as per HPI Integumentary/Breasts: Skin/Breast: Reports as per HPI Neurologic: Reports Normal hearing present Psychiatric: Psychiatric: Reports no additional psychiatric complaints Endocrine: Endocrine: Reports no additional endocrine complaints, Denies change in body appearance, Denies excessive sweating, Denies polyphagia, Denies polydipsia and Denies polyuria [facility] Past Medical History Medical History Abrasion, knee Abscess of foot including toes Alcoholic cirrhosis of liver He has abstained from alcohol for at least 2 years as of July 2020. Essential hypertension Fall Gastroesophageal reflux disease Hyponatremia Left ankle pain Necrotizing fasciitis of ankle and foot Paroxysmal atrial fibrillation Surgical History Surgical History History of surgery on arm (~2012) ORIF right humerus fracture. History of surgery on wrist History of ventral hernia repair (~11/2013) Subsequent abdominal wall exploration with drainage of a seroma at the same site in 03/2014. Family History Family History Mother Hypertension Family history of diabetes mellitus in first degree relative Diabetes mellitus Father Family history of pancreatic cancer Social History Social History Social History: The patient lives alone in [place]. Retired from [employer]. He has a longstanding history of alcohol abuse. He also endorses marijuana use intermittently in a social setting. He designates his daughter Shawna as his surrogate decision maker and wishes to be a full code. Smoking status: Never smoker Alcohol intake: former Drinks per week: 1 Alcohol use details: QUIT EXCESSIVE ETOH 2017 Substance use: current Substance use type: marijuana Other substance usage details: EDIBLES, SMOKES MARIJUANA Last use: 12/27/20 Gender identity (if verbalized by the patient): Male Sexual Orientation (if Verbalized by the Patient): Straight or Heterosexual Spiritual care concerns: No Meds Home Medications and Allergies Home Medications Medication Instructions Recorded Confirmed Type omeprazole 20 mg capsule,delayed 40 mg PO BID cap 08/19/19 04/25/21 History release spironolactone 100 mg tablet 100 mg PO DAILY 08/19/19 04/25/21 History thiamine HCl (vitamin B1) 250 mg 250 mg PO DAILY 08/19/19 04/25/21 History tablet nadolol 40 mg PO DAILY 10/10/20 04/25/21 History gabapentin 600 mg PO TID 01/24/21 04/25/21 History oxycodone 5 mg capsule 5 mg PO
== END 2021-06-05 23:59 | disposition home or self-care (01) ==
LOC: ANHWOC 07:19
PROVIDERS: Family Provider Internal Medicine; PCP Internal Medicine; Referring Provider Orthopaedic Surgery; Visit Provider Nurse Practitioner Family
DX: L97.529 Non-pressure chronic ulcer of other part of left foot with unspecified severity (principal)
CPT/HCPCS: 99212; 99213; G0463

== ENCOUNTER 2021-07-25 07:22 | Outpatient (RCR) | payer MEDICARE, SELFPAY ==
[2021-06-06 00:13] VITALS: BMI 25.8
--- NOTE | 2021-06-06 08:37 | PM.IMHP ---
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 He is now 5 months s/p amputation of the 2nd/3rd ray and 4 months s/p debridement and graft application. He continues with daily dressing changes and follows in the wound clinic weekly with orthopedic evaluations every 2 weeks. He has shown improvement in lower extremity edema over the last several weeks. Denies new complaints today. Review of Systems Constitutional: Constitutional: Reports no additional constitutional complaints, Denies excessive sweating and Denies fever(s) Eyes: Eyes: Reports no additional eye complaints and Denies change in vision ENT: Reports system reviewed and no additional complaints, except as documented and Reports Normal hearing present Cardiovascular: Cardiovascular: Denies chest pain, Denies diaphoresis, Denies leg ulcers and Denies dyspnea on exertion Respiratory: Respiratory: Reports no additional respiratory complaints, Denies cough and Denies dyspnea on exertion Gastrointestinal: Gastrointestinal: Reports no additional gastrointestinal complaints, Denies abdominal pain, Denies constipation, Denies nausea and Denies vomiting Genitourinary: Genitourinary: Reports no additional male genitourinary complaints, Denies hematuria and Denies urinary frequency Musculoskeletal: Musculoskeletal: Reports as per HPI Integumentary/Breasts: Skin/Breast: Reports as per HPI Neurologic: Reports Normal hearing present Psychiatric: Psychiatric: Reports no additional psychiatric complaints Endocrine: Endocrine: Reports no additional endocrine complaints, Denies change in body appearance, Denies excessive sweating, Denies polyphagia, Denies polydipsia and Denies polyuria [facility] Past Medical History Medical History Abrasion, knee Abscess of foot including toes Alcoholic cirrhosis of liver He has abstained from alcohol for at least 2 years as of July 2020. Essential hypertension Fall Gastroesophageal reflux disease Hyponatremia Left ankle pain Necrotizing fasciitis of ankle and foot Paroxysmal atrial fibrillation Surgical History Surgical History History of surgery on arm (~2012) ORIF right humerus fracture. History of surgery on wrist History of ventral hernia repair (~11/2013) Subsequent abdominal wall exploration with drainage of a seroma at the same site in 03/2014. Family History Family History Mother Hypertension Family history of diabetes mellitus in first degree relative Diabetes mellitus Father Family history of pancreatic cancer Social History Social History Social History: The patient lives alone in [place]. Retired from [employer]. He has a longstanding history of alcohol abuse. He also endorses marijuana use intermittently in a social setting. He designates his daughter Shawna as his surrogate decision maker and wishes to be a full code. Smoking status: Never smoker Alcohol intake: former Drinks per week: 1 Alcohol use details: QUIT EXCESSIVE ETOH 2017 Substance use: current Substance use type: marijuana Other substance usage details: EDIBLES, SMOKES MARIJUANA Last use: 12/27/20 Gender identity (if verbalized by the patient): Male Sexual Orientation (if Verbalized by the Patient): Straight or Heterosexual Spiritual care concerns: No Meds Home Medications and Allergies Home Medications Medication Instructions Recorded Confirmed Type omeprazole 20 mg capsule,delayed 40 mg PO BID cap 08/19/19 04/25/21 History release spironolactone 100 mg tablet 100 mg
--- NOTE | 2021-06-20 08:31 | PM.IMHP ---
H&P: HPI History of Present Illness Date/Time: 06/20/21 08:31 Chief Complaint: left foot wound status post necrotizing fasciitis. Narrative: 60 year old male presents to [facility] wound clinic for reevaluation of the left dorsal foot wound. He is now 5 months s/p amputation of the 2nd/3rd ray and 4 months s/p debridement and graft application. He continues with daily dressing changes and follows in the wound clinic weekly with orthopedic evaluations every 2 weeks. No new complaints at this time Review of Systems Constitutional: Constitutional: Reports no additional constitutional complaints, Denies excessive sweating and Denies fever(s) Eyes: Eyes: Reports no additional eye complaints and Denies change in vision ENT: Reports system reviewed and no additional complaints, except as documented and Reports Normal hearing present Cardiovascular: Cardiovascular: Denies chest pain, Denies diaphoresis, Denies leg ulcers and Denies dyspnea on exertion Respiratory: Respiratory: Reports no additional respiratory complaints, Denies cough and Denies dyspnea on exertion Gastrointestinal: Gastrointestinal: Reports no additional gastrointestinal complaints, Denies abdominal pain, Denies constipation, Denies nausea and Denies vomiting Genitourinary: Genitourinary: Reports no additional male genitourinary complaints, Denies hematuria and Denies urinary frequency Musculoskeletal: Musculoskeletal: Reports as per HPI Integumentary/Breasts: Skin/Breast: Reports as per HPI Neurologic: Reports Normal hearing present Psychiatric: Psychiatric: Reports no additional psychiatric complaints Endocrine: Endocrine: Reports no additional endocrine complaints, Denies change in body appearance, Denies excessive sweating, Denies polyphagia, Denies polydipsia and Denies polyuria [facility] Past Medical History Medical History Abrasion, knee Abscess of foot including toes Alcoholic cirrhosis of liver He has abstained from alcohol for at least 2 years as of July 2020. Essential hypertension Fall Gastroesophageal reflux disease Hyponatremia Left ankle pain Necrotizing fasciitis of ankle and foot Paroxysmal atrial fibrillation Surgical History Surgical History History of surgery on arm (~2012) ORIF right humerus fracture. History of surgery on wrist History of ventral hernia repair (~11/2013) Subsequent abdominal wall exploration with drainage of a seroma at the same site in 03/2014. Family History Family History Mother Hypertension Family history of diabetes mellitus in first degree relative Diabetes mellitus Father Family history of pancreatic cancer Social History Social History Social History: The patient lives alone in [place]. Retired from [employer]. He has a longstanding history of alcohol abuse. He also endorses marijuana use intermittently in a social setting. He designates his daughter Shawna as his surrogate decision maker and wishes to be a full code. Smoking status: Never smoker Alcohol intake: former Drinks per week: 1 Alcohol use details: QUIT EXCESSIVE ETOH 2017 Substance use: current Substance use type: marijuana Other substance usage details: EDIBLES, SMOKES MARIJUANA Last use: 12/27/20 Gender identity (if verbalized by the patient): Male Sexual Orientation (if Verbalized by the Patient): Straight or Heterosexual Spiritual care concerns: No Meds Home Medications and Allergies Home Medications Medication Instructions Recorded Confirmed Type omeprazole 20 mg capsule,delayed 40 mg PO BID cap 08/19/19 04/25/21 History release spironolactone 100 mg tablet 100 mg PO DAILY 08/19/19 04/25/21 History thiamine HCl (vitamin B1) 250 mg 250 mg PO DAILY 08/19/19 04/25/21 History tablet
--- NOTE | 2021-07-11 08:43 | PM.IMHP ---
H&P: HPI History of Present Illness Date/Time: 07/11/21 08:43 Chief Complaint: left foot necrotizing fasciitis ulcer Narrative: returns for re-evaluation [facility]. Continues with silver gel and Marlen dressing changes. No interval complaints. Review of Systems Constitutional: Constitutional: Reports no additional constitutional complaints, Denies excessive sweating and Denies fever(s) Eyes: Eyes: Reports no additional eye complaints and Denies change in vision ENT: Reports system reviewed and no additional complaints, except as documented and Reports Normal hearing present Cardiovascular: Cardiovascular: Denies chest pain, Denies diaphoresis, Denies leg ulcers and Denies dyspnea on exertion Respiratory: Respiratory: Reports no additional respiratory complaints, Denies cough and Denies dyspnea on exertion Gastrointestinal: Gastrointestinal: Reports no additional gastrointestinal complaints, Denies abdominal pain, Denies constipation, Denies nausea and Denies vomiting Genitourinary: Genitourinary: Reports no additional male genitourinary complaints, Denies hematuria and Denies urinary frequency Musculoskeletal: Musculoskeletal: Reports as per HPI Integumentary/Breasts: Skin/Breast: Reports as per HPI Neurologic: Reports Normal hearing present Psychiatric: Psychiatric: Reports no additional psychiatric complaints Endocrine: Endocrine: Reports no additional endocrine complaints, Denies change in body appearance, Denies excessive sweating, Denies polyphagia, Denies polydipsia and Denies polyuria PMF Past Medical History Medical History Abrasion, knee Abscess of foot including toes Alcoholic cirrhosis of liver He has abstained from alcohol for at least 2 years as of July 2020. Essential hypertension Fall Gastroesophageal reflux disease Hyponatremia Left ankle pain Necrotizing fasciitis of ankle and foot Paroxysmal atrial fibrillation Surgical History Surgical History History of surgery on arm (~2012) ORIF right humerus fracture. History of surgery on wrist History of ventral hernia repair (~11/2013) Subsequent abdominal wall exploration with drainage of a seroma at the same site in 03/2014. Family History Family History Mother Hypertension Family history of diabetes mellitus in first degree relative Diabetes mellitus Father Family history of pancreatic cancer Social History Social History Social History: The patient lives alone in [place]. Retired from [employer]. He has a longstanding history of alcohol abuse. He also endorses marijuana use intermittently in a social setting. He designates his daughter Shawna as his surrogate decision maker and wishes to be a full code. Smoking status: Never smoker Alcohol intake: former Drinks per week: 1 Alcohol use details: QUIT EXCESSIVE ETOH 2017 Substance use: current Substance use type: marijuana Other substance usage details: EDIBLES, SMOKES MARIJUANA Last use: 12/27/20 Gender identity (if verbalized by the patient): Male Sexual Orientation (if Verbalized by the Patient): Straight or Heterosexual Spiritual care concerns: No Meds Home Medications and Allergies Home Medications Medication Instructions Recorded Confirmed Type omeprazole 20 mg capsule,delayed 40 mg PO BID cap 08/19/19 04/25/21 History release spironolactone 100 mg tablet 100 mg PO DAILY 08/19/19 04/25/21 History thiamine HCl (vitamin B1) 250 mg 250 mg PO DAILY 08/19/19 04/25/21 History tablet nadolol 40 mg PO DAILY 10/10/20 04/25/21 History gabapentin 600 mg PO TID 01/24/21 04/25/21 History oxycodone 5 mg capsule 5 mg PO Q8H PRN #20 cap 02/24/21 04/25/21 Rx cyclobenzaprine 5 mg PO TID PRN
--- NOTE | 2021-07-25 08:35 | PM.IMHP ---
H&P: HPI History of Present Illness Date/Time: 07/25/21 08:35 Chief Complaint: left foot wound Narrative: patient is 6 months status post amputation of the 2nd and 3rd ray and 5 months status post debridement and graft application. He returns to the [place] wound clinic today for re-evaluation of the left dorsal foot wound. No new concerns today. Denies signs or symptoms of infection. Tolerating custom orthotics and shoes well. Review of Systems Constitutional: Constitutional: Reports no additional constitutional complaints, Denies excessive sweating and Denies fever(s) Eyes: Eyes: Reports no additional eye complaints and Denies change in vision ENT: Reports system reviewed and no additional complaints, except as documented and Reports Normal hearing present Cardiovascular: Cardiovascular: Denies chest pain, Denies diaphoresis, Denies leg ulcers and Denies dyspnea on exertion Respiratory: Respiratory: Reports no additional respiratory complaints, Denies cough and Denies dyspnea on exertion Gastrointestinal: Gastrointestinal: Reports no additional gastrointestinal complaints, Denies abdominal pain, Denies constipation, Denies nausea and Denies vomiting Genitourinary: Genitourinary: Reports no additional male genitourinary complaints, Denies hematuria and Denies urinary frequency Musculoskeletal: Musculoskeletal: Reports as per HPI Integumentary/Breasts: Skin/Breast: Reports as per HPI Neurologic: Reports Normal hearing present Psychiatric: Psychiatric: Reports no additional psychiatric complaints Endocrine: Endocrine: Reports no additional endocrine complaints, Denies change in body appearance, Denies excessive sweating, Denies polyphagia, Denies polydipsia and Denies polyuria [facility] Past Medical History Medical History Abrasion, knee Abscess of foot including toes Alcoholic cirrhosis of liver He has abstained from alcohol for at least 2 years as of July 2020. Essential hypertension Fall Gastroesophageal reflux disease Hyponatremia Left ankle pain Necrotizing fasciitis of ankle and foot Paroxysmal atrial fibrillation Surgical History Surgical History History of surgery on arm (~2012) ORIF right humerus fracture. History of surgery on wrist History of ventral hernia repair (~11/2013) Subsequent abdominal wall exploration with drainage of a seroma at the same site in 03/2014. Family History Family History Mother Hypertension Family history of diabetes mellitus in first degree relative Diabetes mellitus Father Family history of pancreatic cancer Social History Social History Social History: The patient lives alone in [place]. Retired from [employer]. He has a longstanding history of alcohol abuse. He also endorses marijuana use intermittently in a social setting. He designates his daughter Shawna as his surrogate decision maker and wishes to be a full code. Smoking status: Never smoker Alcohol intake: former Drinks per week: 1 Alcohol use details: QUIT EXCESSIVE ETOH 2017 Substance use: current Substance use type: marijuana Other substance usage details: EDIBLES, SMOKES MARIJUANA Last use: 12/27/20 Gender identity (if verbalized by the patient): Male Sexual Orientation (if Verbalized by the Patient): Straight or Heterosexual Spiritual care concerns: No Meds Home Medications and Allergies Home Medications Medication Instructions Recorded Confirmed Type omeprazole 20 mg capsule,delayed 40 mg PO BID cap 08/19/19 04/25/21 History release spironolactone 100 mg tablet 100 mg PO DAILY 08/19/19 04/25/21 History thiamine HCl (vitamin B1) 250 mg 250 mg PO DAILY 08/19/19 04/25/21 History tablet nadolol 40 mg PO DAILY 10/10/20 04/25/21 History ga
== END 2021-08-21 08:11 | disposition home or self-care (01) ==
LOC: ANHWOC 07:22
PROVIDERS: Family Provider Internal Medicine; PCP Internal Medicine; Visit Provider Nurse Practitioner Family
DX: L97.529 Non-pressure chronic ulcer of other part of left foot with unspecified severity (principal)
CPT/HCPCS: 99212; A9270; G0463; L2116

== ENCOUNTER 2021-12-07 13:19 | Emergency (ER) | payer OTHER, SELFPAY ==
--- NOTE | ~2021-12-07 | XR_ITS ---
EXAMINATION: [id number] INDICATION: Left rib pain, initial encounter TECHNIQUE: A frontal view of the chest and 3 views of the left ribs were obtained. COMPARISON: None. FINDINGS: There are acute fractures of the left fourth through eighth ribs. There appears to be overl dorian soft tissue swelling in the left chest wall. The lungs are free of acute opacities. There is no pleural effusion or pneumothorax. The cardiomediastinal silhouette is normal. Partially imaged orthop edic hardware is noted in the right humeral head. IMPRESSION: 1. Acute fractures of the left fourth through eighth ribs. 2. No acute cardiopulmonary abnormality. Reviewed, dictated and finalized at location A.
--- NOTE | ~2021-12-07 | XR_ITS ---
EXAMINATION: XR ankle LT min 3V, XR foot LT min 3V DATE: 12/07/2021 14:02 INDICATION: Left foot and ankle pain post fall TECHNIQUE: 1. Anteroposterior, mortise, additional oblique and lateral view of the left ankle were obtained. 2. Dorsoplantar, two oblique and lateral views of the left foot were obtained. COMPARISON: None. FINDINGS: Amputation of the left second and third toes at the level of the metatarsophalangeal joint. Bone alig nment is otherwise normal. Suture anchor at the lateral base of the fifth metatarsal. No fracture. Po lyarticular osteoarthritis, moderate at the medial naviculocuneiform articulation and mild at many ad ditional joints throughout the left foot. Moderate-sized plantar calcaneal spur and small Achilles ca lcaneal spur. Diffuse soft tissue swelling about the distal lower leg and hindfoot, both medially and laterally. IMPRESSION: 1. Mild to moderate polyarticular osteoarthritis in the left foot. No acute osseous abnormality at th e left foot or ankle. 2. Postoperative change including amputation of the left second and third toes and placement of a sut ure anchor at the base of the fifth metatarsal. Reviewed, dictated and finalized at location A. IMPRESSION: 1. Mild to moderate polyarticular osteoarthritis in the left foot. No acute oss eous abnormality at the left foot or ankle. 2. Postoperative change including amputation of the left second and third toes and placement of a suture anchor at the base of the fifth metatarsal.
--- NOTE | ~2021-12-07 | XR_ITS ---
EXAMINATION: XR foot RT min 3V DATE: 12/07/2021 14:02 INDICATION: Right foot pain post fall TECHNIQUE: Dorsoplantar, two oblique and lateral views of the right foot were obtained. COMPARISON: None. FINDINGS: Nondisplaced extra articular fracture at the distal necks of the right second and third metatarsals. Alignment remains near anatomic. No other fractures identified. Mild polyarticular osteoarthritis at the first metatarsophalangeal and multiple tarsometatarsal and interphalangeal joints. Suggestion of subarticular cystic change at the head of the first metatarsal. Small Achilles calcaneal and moderate -sized plantar calcaneal spurs. Mild soft tissue swelling at the dorsum of the distal forefoot. IMPRESSION: 1. Nondisplaced extra articular fracture at the distal necks of the right second and third metatarsal s. Reviewed, dictated and finalized at location A. IMPRESSION: 1. Nondisplaced extra articular fracture at the distal necks of the right secon d and third metatarsals.
[2021-12-07 13:24] VITALS: BP 137/89; PULSE 70; RESP 18; TEMP 36.9; O2SAT 98
--- NOTE | 2021-12-07 15:19 | ECG_ITS ---
Measurements Intervals [place] Rate: 57 P: 39 VT: 187 QRS: 2 QRSD: 103 T: 12 QT: 460 QTc: 450 Interpretive Statements SINUS BRADYCARDIA ATRIAL PREMATURE COMPLEXES INCOMPLETE RIGHT BUNDLE BRANCH BLOCK BASELINE ARTIFACT- I, III, AVL, V2 BORDERLINE ECG Electronically Signed On 12-07-2021 16:06:31 CDT by Jorge Limon D.O.
[2021-12-07 15:30] VITALS: BP 134/80; PULSE 80; RESP 16; TEMP 36.9; O2SAT 97
[2021-12-07 15:35] LABS: Basophils Percent Auto 0.4 % (0.2-1.2); Eosinophils Percent Auto 0.8 % (0-4.4); Hematocrit 34.7 % (42.0-52.0); Hemoglobin 11.5 g/dL (14.0-18.0); Immature Granulocyte Absolute 0.01 K/mm3 (0.00-0.031); Immature Granulocyte Percent A 0.2 % (0-0.5); Lymphocytes Absolute Auto 0.37 K/mm3 (0.9-3.2); Lymphocytes Percent Auto 7.5 % (18.3-44.2); Mean Corpuscular HGB Conc 33.1 g/dl (32-36); Mean Corpuscular Hemoglobin 31.9 pg (26-34); Mean Corpuscular Volume 96.1 fl (80-100); Monocytes Absolute Auto 0.7 K/mm3 (0.1-0.6); Monocytes Percent Auto 14.4 % (2.6-8.5); Neutrophils Absolute Auto 3.8 K/mm3 (1.3-6.7); Neutrophils Percent Auto 76.7 % (45.5-73.1); Platelet Count Result 76 k/mm3 (150-375); Red Blood Count 3.61 M/mm3 (4.6-6.20); White Blood Count 4.9 K/mm3 (4.5-10.0)
[2021-12-07 15:46] LABS: Alanine Aminotransferase 16 U/L (6-50); Albumin Level 3.7 g/dL (3.5-5.1); Alkaline Phosphatase 128 U/L (38-126); Anion Gap 8 mmol/L (8-16); Aspartate Amino Transferase 46 U/L (17-59); Bilirubin,Total 4.8 mg/dL (0.2-1.3); Blood Urea Nitrogen 17 mg/dL (9-20); Calcium 8.6 mg/dL (8.4-10.2); Carbon Dioxide 28 mmol/L (22-30); Chloride 96 mmol/L (98-107); Estimated CRCL calculation 52 ml/min; Estimated Glomerular Filt Rate 44; Glucose 101 mg/dL (65-110); Potassium 3.8 mmol/L (3.4-5.0); Sodium 132 mmol/L (137-145)
--- NOTE | 2021-12-07 16:23 | ED.FALL ---
HPI - Fall General Chief Complaint: Fall Stated Complaint: fall Time Seen by Provider: 12/07/21 15:27 Source: patient Limitations: no limitations History of Present Illness HPI Narrative: 61-year-old male presents with bilateral foot pain and left rib pain since last night. Patient states he was getting out of his car in his garage and tripped and fell landing on his left ribs last night. Patient sustained a left forearm laceration. Patient denies hitting head or LOC. Patient states he just went inside and went to bed. Patient woke up with increased pain today. Patient denies any other times. MD complaint: fall Onset (ago): day(s) (Last night) Fall from: standing Fall witnessed: no Place fall occurred: home Loss of consciousness: none Prolonged down time: no Symptoms prior to fall: none Context: tripped/slipped Location of injury - extremities: Left: elbow and Right: foot Associated symptoms (after fall): denies Related Data Home Medications Medication Instructions Recorded Confirmed omeprazole 20 mg capsule,delayed 40 mg PO BID cap 08/19/19 10/24/21 release thiamine HCl (vitamin B1) 250 mg 250 mg PO DAILY 08/19/19 10/24/21 tablet meloxicam 15 mg PO DAILY 03/21/21 10/24/21 ciprofloxacin HCl 500 mg tablet 500 mg PO DAILY tablet 08/09/21 10/24/21 furosemide 40 mg tablet 20 mg PO DAILY tablet 08/09/21 10/24/21 nadolol 20 mg tablet 20 mg PO DAILY tablet 08/09/21 10/24/21 spironolactone 100 mg tablet 50 mg PO DAILY tablet 08/09/21 10/24/21 Allergies Allergy/AdvReac Type Severity Reaction Status Date / Time No Known Allergies Allergy Unknown Verified 12/07/21 13:28 Review of Systems Review of Systems: All systems reviewed & are unremarkable except as noted in HPI and below Eyes: Eyes: Reports no additional eye complaints ENT: Reports system reviewed and no additional complaints, except as documented Cardiovascular: Cardiovascular: Reports no additional cardiovascular complaints Respiratory: Respiratory: Reports no additional respiratory complaints Gastrointestinal: Gastrointestinal: Reports no additional gastrointestinal complaints Genitourinary: Genitourinary: Reports no additional male genitourinary complaints Musculoskeletal: Comments: Bilateral foot pain and left rib pain Integumentary/Breasts: Comments: Left elbow laceration Neurologic: Reports system reviewed and no additional complaints, except as documented Psychiatric: Psychiatric: Reports no additional psychiatric complaints Endocrine: Endocrine: Reports no additional endocrine complaints Hematologic/Lymphatic: Hematologic/Lymphatic: Reports no additional hematologic/lymphatic complaints Allergic/Immunologic: Allergic/Immunologic: Reports no additional allergic/immunologic complaints COUNTS INCLUDE 234 BEDS AT THE [facility] Past Medical History Medical History Abrasion, knee Abscess of foot including toes Alcoholic cirrhosis of liver He has abstained from alcohol for at least 2 years as of July 2020. Cirrhosis Essential hypertension Fall Gastroesophageal reflux disease Hyponatremia Left ankle pain Necrotizing fasciitis of ankle and foot Neuropathy Paroxysmal atrial fibrillation Surgical History Surgical History History of surgery on arm (~2012) ORIF right humerus fracture. History of surgery on wrist History of ventral hernia repair (~11/2013) Subsequent abdominal wall exploration with drainage of a seroma at the same site in 03/2014. Family History Family History Mother Hypertension Family history of diabetes mellitus in first degree relative Diabetes mellitus Father Family history of pancreatic cancer Social History Social History Social History: The patient lives alone in [place]. Retired from [employer].
[2021-12-07 16:30] VITALS: BP 128/80; PULSE 78; RESP 16; TEMP 37; O2SAT 96
[2021-12-07] MEDS: LIDOCAINE HCL 1% LOCAL INJ 20 ML VIAL 10 ML INFILTRATE (16:37)
[2021-12-07 18:11] VITALS: BP 132/80; PULSE 70; RESP 16; TEMP 37; O2SAT 98
== END 2021-12-07 18:13 | disposition home or self-care (01) ==
PROVIDERS: Emergency Medicine; Emergency Provider Nurse Practitioner Family; PCP Physician Assistant
DX: S22.42XA Multiple fractures of ribs, left side, initial encounter for closed fracture (principal); S92.324A Nondisplaced fracture of second metatarsal bone, right foot, initial encounter for closed fracture; S92.334A Nondisplaced fracture of third metatarsal bone, right foot, initial encounter for closed fracture; S51.012A Laceration without foreign body of left elbow, initial encounter; W01.0XXA Fall on same level from slipping, tripping and stumbling without subsequent striking against object, initial encounter; Y92.008 Other place in unspecified non-institutional (private) residence as the place of occurrence of the external cause
CPT/HCPCS: 12004; 36415; 71101; 73610; 73630; 80053; 85025; 93005; 99284

== ENCOUNTER 2022-03-16 07:15 | Outpatient (RCR) | payer OTHER, SELFPAY ==
[2021-12-20 09:13] VITALS: BMI 26.0
--- NOTE | 2022-02-13 09:17 | PM.CNOR ---
Assessment and Plan Assessment and plan (1) Foot ulcer, left: Qualifiers: Non-pressure ulcer stage: unspecified non-pressure ulcer stage Qualified Code(s): L97.529 - Non-pressure chronic ulcer of other part of left foot with unspecified severity Code(s): L97.529 - Non-pressure chronic ulcer of other part of left foot with unspecified severity Status: Acute Assessment and Plan: Updated history, physical exam and radiographs reviewed with the patient. Interval changes reviewed. Ulcer plantar left hallux x2 months. Recent radiographs negative. Some improvement with total contact casting but difficulty due to drainage. Discussed the condition, nature, etiology and course of natural history with the patient. Treatment options including surgical and nonoperative treatment were reviewed. Risks and benefits of each as well as alternatives reviewed. The patient's questions were answered. Conservative treatment ice, compression and elevation. Switched to gentamicin ointment with Marlen and daily dressing changes. Fracture Boot for offloading. Follow-up with wound clinic in 1 week. Follow up with Orthopedics in wound clinic in 2 weeks. May need to restart total contact casting if drainage improved. Discussed surgical treatment for failed conservative treatment. (2) Wound of left foot: Code(s): S91.302A - Unspecified open wound, left foot, initial encounter Status: Acute History of Present Illness HPI Consult date: 02/13/22 Requesting physician: Mau Simms DO Chief complaint: L97.529 non-pressure ulcer left foot Narrative: Patient known previously for necrotizing fasciitis of the left foot. Had an injury approximately 2 months ago home. Sustained right foot fractures left elbow laceration and a abrasion to the left hallux. Hallux wound with difficulty healing. We have been asked to see him in the wound clinic here at [facility] for evaluation and treatment he was in a total contact cast for 2 weeks. He has been a postoperative dressing changes for past week Review of Systems Review of Systems: All systems reviewed & are unremarkable except as noted in HPI and below Eyes: Eyes: Reports no additional eye complaints ENT: Reports system reviewed and no additional complaints, except as documented Cardiovascular: Cardiovascular: Reports no additional cardiovascular complaints Respiratory: Respiratory: Reports no additional respiratory complaints Gastrointestinal: Gastrointestinal: Reports no additional gastrointestinal complaints Genitourinary: Genitourinary: Reports no additional male genitourinary complaints Musculoskeletal: Comments: Bilateral foot pain and left rib pain Integumentary/Breasts: Comments: Left elbow laceration Neurologic: Reports system reviewed and no additional complaints, except as documented Psychiatric: Psychiatric: Reports no additional psychiatric complaints Endocrine: Endocrine: Reports no additional endocrine complaints Hematologic/Lymphatic: Hematologic/Lymphatic: Reports no additional hematologic/lymphatic complaints Allergic/Immunologic: Allergic/Immunologic: Reports no additional allergic/immunologic complaints PMFSH Past Medical History Medical History Abrasion, knee Abscess of foot including toes Alcoholic cirrhosis of liver He has abstained from alcohol for at least 2 years as of July 2020. Cirrhosis Essential hypertension Fall Gastroesophageal reflux disease Hyponatremia Left ankle pain Necrotizing fasciitis of ankle and foot Neuropathy Paroxysmal atrial fibrillation Surgical History Surgical History History of surgery on arm (~2012) ORIF right humerus fracture. History of surgery on wrist History of ventral hernia repair (~11/2013) Subsequent abdominal wall exploration with drainage of a seroma at the [facility]
--- NOTE | 2022-02-27 08:55 | PM.IMHP ---
H&P: HPI History of Present Illness Date/Time: 02/27/22 08:55 Chief Complaint: left foot wound Narrative: Patient follows up in [place] wound clinic today for re-evaluation of left hallux wound. The patient is 6 months status post amputation of the 2nd and 3rd ray and 5 months status post debridement and graft application. No new concerns. Review of Systems Review of Systems: All systems reviewed & are unremarkable except as noted in HPI and below Eyes: Eyes: Reports no additional eye complaints ENT: Reports system reviewed and no additional complaints, except as documented Cardiovascular: Cardiovascular: Reports no additional cardiovascular complaints Respiratory: Respiratory: Reports no additional respiratory complaints Gastrointestinal: Gastrointestinal: Reports no additional gastrointestinal complaints Genitourinary: Genitourinary: Reports no additional male genitourinary complaints Neurologic: Reports system reviewed and no additional complaints, except as documented Psychiatric: Psychiatric: Reports no additional psychiatric complaints Endocrine: Endocrine: Reports no additional endocrine complaints Hematologic/Lymphatic: Hematologic/Lymphatic: Reports no additional hematologic/lymphatic complaints Allergic/Immunologic: Allergic/Immunologic: Reports no additional allergic/immunologic complaints [facility] Past Medical History Medical History Abrasion, knee Abscess of foot including toes Alcoholic cirrhosis of liver He has abstained from alcohol for at least 2 years as of July 2020. Cirrhosis Essential hypertension Fall Gastroesophageal reflux disease Hyponatremia Left ankle pain Necrotizing fasciitis of ankle and foot Neuropathy Paroxysmal atrial fibrillation Surgical History Surgical History History of surgery on arm (~2012) ORIF right humerus fracture. History of surgery on wrist History of ventral hernia repair (~11/2013) Subsequent abdominal wall exploration with drainage of a seroma at the same site in 03/2014. Family History Family History Mother Hypertension Family history of diabetes mellitus in first degree relative Diabetes mellitus Father Family history of pancreatic cancer Social History Social History Social History: The patient lives alone in [place]. Retired from [employer]. He has a longstanding history of alcohol abuse. He also endorses marijuana use intermittently in a social setting. He designates his daughter Shawna as his surrogate decision maker and wishes to be a full code. Smoking status: Never smoker Alcohol intake: former Drinks per week: 1 Alcohol use details: QUIT EXCESSIVE ETOH 2017 Substance use: current Substance use type: marijuana Other substance usage details: EDIBLES, SMOKES MARIJUANA Last use: 12/27/20 Gender identity (if verbalized by the patient): Male Sexual Orientation (if Verbalized by the Patient): Straight or Heterosexual Spiritual care concerns: No Meds Home Medications and Allergies Home Medications Medication Instructions Recorded Confirmed Type omeprazole 20 mg capsule,delayed 40 mg PO BID 08/19/19 02/14/22 History release thiamine HCl (vitamin B1) 250 mg 250 mg PO DAILY 08/19/19 02/14/22 History tablet meloxicam 15 mg tablet 15 mg PO DAILY 03/21/21 02/14/22 History ciprofloxacin HCl 500 mg tablet 500 mg PO DAILY 08/09/21 02/14/22 History furosemide 40 mg tablet 20 mg PO DAILY 08/09/21 02/14/22 History nadolol 20 mg tablet 20 mg PO DAILY 08/09/21 02/14/22 History spironolactone 100 mg tablet 50 mg PO DAILY 08/09/21 02/14/22 History gabapentin 600 mg tablet 600 mg PO TID #270 tabs 09/25/21 02/14/22 Rx cephalexin 500 mg tablet 500 mg PO Q12H 12/20/21 02/14/22 History hydrocodone 5 mg-
--- NOTE | ~2022-03-16 | XR_ITS ---
XR toe 1st LT min 2V DATE: 02/09/2022 09:36 INDICATION: Left first toe ulcer osteomyelitis TECHNIQUE: 3V COMPARISON: 12/07/2021 left foot FINDINGS: There is amputation of the second and third digits. No fracture or dislocation, periosteal reaction or bone destruction of the first digit is evident. First and second metatarsal artery calcifications are noted, suggesting diabetes. Osteoarthritis is noted at the tarsal, tarsometatarsal area and interphalangeal joint of the great to e. IMPRESSION: No radiographic evidence of ostial myelitis of the first digit Reviewed, dictated and finalized at location A.
--- NOTE | 2022-03-16 13:21 | PM.PNORT ---
Progress Note: A&P Assessment and Plan (1) Foot ulcer, left: Qualifiers: Non-pressure ulcer stage: unspecified non-pressure ulcer stage Qualified Code(s): L97.529 - Non-pressure chronic ulcer of other part of left foot with unspecified severity Code(s): L97.529 - Non-pressure chronic ulcer of other part of left foot with unspecified severity Status: Acute Assessment and Plan: Ulcer on the plantar aspect of the left hallux measures 1.5 x 1.8 x 0.5 cm. Mild serous drainage noted. Mild improvement in dimensions. Plan to continue gentamicin daily with Marlen and add Mepilex foam. Continue fracture boot for offloading. patient requires debridement at this time. Performed today without difficulty. Follow up in 2 weeks for re-evaluation. (2) Wound of left foot: Code(s): S91.302A - Unspecified open wound, left foot, initial encounter Status: Acute Subjective Subjective Date/Time Seen: 03/16/22 13:21 Interval history: Patient returns for follow-up [facility] for left hallux plantar ulceration/ Alcoholic neuropathic foot. Patient doing dressing changes with foam. Reports no interim complaints. Using fracture boot for ambulation. Review of Systems Review of Systems: All systems reviewed & are unremarkable except as noted in HPI and below Eyes: Eyes: Reports no additional eye complaints ENT: Reports system reviewed and no additional complaints, except as documented Cardiovascular: Cardiovascular: Reports no additional cardiovascular complaints Respiratory: Respiratory: Reports no additional respiratory complaints Gastrointestinal: Gastrointestinal: Reports no additional gastrointestinal complaints Genitourinary: Genitourinary: Reports no additional male genitourinary complaints Neurologic: Reports system reviewed and no additional complaints, except as documented and Denies confusion Psychiatric: Psychiatric: Reports no additional psychiatric complaints and Denies confusion Endocrine: Endocrine: Reports no additional endocrine complaints Hematologic/Lymphatic: Hematologic/Lymphatic: Reports no additional hematologic/lymphatic complaints Allergic/Immunologic: Allergic/Immunologic: Reports no additional allergic/immunologic complaints Exam Const: General: No confusion Orientation/consciousness: No confusion HENMT: Head: normal to inspection, normocephalic and atraumatic Eyes: Conjunctivae: conjunctivae normal Sclera: sclerae normal Neck: Neck: supple and nontender Chest: Chest palpation & inspection: normal inspection of the chest Resp: Effort & Inspection: normal respiratory effort and no audible wheezes Cardio: Rate: regular rate Rhythm: regular rhythm : General: Yes deferred Skin: General skin exam: no rashes or lesions noted Neuro: General: No confusion Extrem: General: capillary refill normal Right upper extremity: normal to inspection Left upper extremity: normal to inspection Right lower extremity: normal to inspection, hip/thigh Details: normal to inspection, knee Details: normal to inspection and knee ligament exam normal, lower leg Details: pitting edema Details: 2+ and foot Details: vascular exam Details: dorsalis pedis pulse present and normal capillary refill and motor-sensory exam Details: light-touch abnormal Location: in all toes Left lower extremity: hip/thigh Details: normal to inspection, knee Details: normal to inspection and knee ligament exam normal Details: anterior drawer test normal, valgus stress test normal, varus stress test normal and Justin's test normal, ankle (no calf tenderness) Details: normal to inspection, pitting edema Details: pitting and 2+ and normal ROM and foot Details: normal capillary refill, toes with normal ROM, vascular exam Details: dorsalis pedis pulse present and normal capillary refill and motor-sensory exam light-touch abnormal in all toes Other: Full-thickness skin ulceratio
== END 2022-03-20 23:59 | disposition home or self-care (01) ==
LOC: ANHWOC 07:15
PROVIDERS: PCP Physician Assistant; Referring Provider Nurse Practitioner Family; Visit Provider Orthopaedic Surgery
DX: L97.529 Non-pressure chronic ulcer of other part of left foot with unspecified severity (principal); S91.302D Unspecified open wound, left foot, subsequent encounter
CPT/HCPCS: 11042; 29445; 73660; 99212; 99213; A9270; G0463; L2116

== ENCOUNTER 2022-04-12 09:04 | Outpatient (CLI) | payer OTHER, SELFPAY ==
--- NOTE | 2022-04-12 11:00 | NEURO_ITS ---
Impression: # Complains of numbness of lower extremities. # No electrical responses obtained from motor or sensory nerves. # Needle/EMG exam abnormal with decreased motor unit potentials in all muscles more pronounced distally than proximally but no fibs or myotonia noted. # Findings compatible with severe neuropathy. Nerve Conduction Studies Anti Sensory Summary Table Stim Site NR Peak (ms) P-T Amp (?V) Site1 Site2 Delta-P (ms) Dist (cm) Sandeep (m/s) Left Sup Fibular Anti Sensory (Ant Lat Mall) NO RESPONSE 14 cm NR 14 cm Ant Lat Mall 16.0 Right Sup Fibular Anti Sensory (Ant Lat Mall) NO RESPONSE 14 cm NR 14 cm Ant Lat Mall 16.0 Left Sural Anti Sensory (Lat Mall) NO RESPONSE Calf NR Calf Lat Mall 16.0 Right Sural Anti Sensory (Lat Mall) NO RESPONSE Calf NR Calf Lat Mall 16.0 Motor Summary Table Stim Site NR Onset (ms) O-P Amp (mV) Site1 Site2 Delta-0 (ms) Dist (cm) Sandeep (m/s) Left Peroneal Motor (Vastus Med) NO RESPONSE Ankle NR Popit NR Right Peroneal Motor (Vastus Med) NO RESPONSE Ankle NR Popit NR Left Tibial Motor (Abd Shea Brev) NO RESPONSE Ankle NR Knee NR Right Tibial Motor (Abd Shea Brev) NO RESPONSE Ankle NR Knee NR F Wave Studies NR F-Lat (ms) L-R F-Lat (ms) Left Peroneal (Mrkrs) (EDB) NO RESPONSE NR Right Peroneal (Mrkrs) (EDB) NO RESPONSE NR Left Tibial (Mrkrs) (Abd Hallucis) NO RESPONSE NR Right Tibial (Mrkrs) (Abd Hallucis) NO RESPONSE NR EMG Side Muscle Nerve Root Ins Act Fibs Amp Dur Recrt Comment Right AntTibialis Dp Br Fibular L4-5 Nml Nml Nml Nml Reduced Right Gastroc Tibial S1-2 Nml Nml Nml Nml Reduced Right Fibularis Long Sup Br Fibular L5-S1 Nml Nml Nml Nml Reduced Right Flex Dig Long Tibial L5-S2 Nml Nml Nml Nml Reduced Right Ext Dig Brev Dp Br Fibular L5, S1 Nml Nml Nml Nml Reduced Left AntTibialis Dp Br Fibular L4-5 Nml Nml Nml Nml Reduced Left Gastroc Tibial S1-2 Nml Nml Nml Nml Reduced Left Fibularis Long Sup Br Fibular L5-S1 Nml Nml Nml Nml Reduced Left Flex Dig Long Tibial L5-S2 Nml Nml Nml Nml Reduced Left Ext Dig Brev Dp Br Fibular L5, S1 Nml Nml Nml Nml Reduced MTDD
== END 2022-04-12 09:05 | disposition home or self-care (01) ==
PROVIDERS: PCP Physician Assistant; Visit Provider Physician Assistant
DX: R20.0 Anesthesia of skin (principal); R94.131 Abnormal electromyogram [EMG]
CPT/HCPCS: 95886; 95910

== ENCOUNTER 2022-06-26 07:24 | Outpatient (RCR) | payer OTHER, SELFPAY ==
[2022-03-21 00:05] VITALS: BMI 26.0
--- NOTE | 2022-04-03 09:20 | PM.IMHP ---
H&P: HPI History of Present Illness Date/Time: 04/03/22 09:20 Chief Complaint: Left foot wound Narrative: Patient follows up in [facility] today for re-evaluation of left hallux wound. The patient is 6 months status post amputation of the 2nd and 3rd ray and 5 months status post debridement and graft application. No new concerns. Review of Systems Review of Systems: All systems reviewed & are unremarkable except as noted in HPI and below Eyes: Eyes: Reports no additional eye complaints ENT: Reports system reviewed and no additional complaints, except as documented Cardiovascular: Cardiovascular: Reports no additional cardiovascular complaints Respiratory: Respiratory: Reports no additional respiratory complaints Gastrointestinal: Gastrointestinal: Reports no additional gastrointestinal complaints Genitourinary: Genitourinary: Reports no additional male genitourinary complaints Neurologic: Reports system reviewed and no additional complaints, except as documented and Denies confusion Psychiatric: Psychiatric: Reports no additional psychiatric complaints and Denies confusion Endocrine: Endocrine: Reports no additional endocrine complaints Hematologic/Lymphatic: Hematologic/Lymphatic: Reports no additional hematologic/lymphatic complaints Allergic/Immunologic: Allergic/Immunologic: Reports no additional allergic/immunologic complaints [facility] Past Medical History Medical History Abrasion, knee Abscess of foot including toes Alcoholic cirrhosis of liver He has abstained from alcohol for at least 2 years as of July 2020. Cirrhosis Essential hypertension Fall Gastroesophageal reflux disease Hyponatremia Left ankle pain Necrotizing fasciitis of ankle and foot Neuropathy Paroxysmal atrial fibrillation Surgical History Surgical History History of surgery on arm (~2012) ORIF right humerus fracture. History of surgery on wrist History of ventral hernia repair (~11/2013) Subsequent abdominal wall exploration with drainage of a seroma at the same site in 03/2014. Family History Family History Mother Hypertension Family history of diabetes mellitus in first degree relative Diabetes mellitus Father Family history of pancreatic cancer Social History Social History Social History: The patient lives alone in [place]. Retired from [employer]. He has a longstanding history of alcohol abuse. He also endorses marijuana use intermittently in a social setting. He designates his daughter Shawna as his surrogate decision maker and wishes to be a full code. Smoking status: Never smoker Alcohol intake: former Drinks per week: 1 Alcohol use details: QUIT EXCESSIVE ETOH 2017 Substance use: current Substance use type: marijuana Other substance usage details: EDIBLES, SMOKES MARIJUANA Last use: 12/27/20 Gender identity (if verbalized by the patient): Male Sexual Orientation (if Verbalized by the Patient): Straight or Heterosexual Spiritual care concerns: No Meds Home Medications and Allergies Home Medications Medication Instructions Recorded Confirmed Type omeprazole 20 mg capsule,delayed 40 mg PO BID 08/19/19 02/14/22 History release thiamine HCl (vitamin B1) 250 mg 250 mg PO DAILY 08/19/19 02/14/22 History tablet ciprofloxacin HCl 500 mg tablet 500 mg PO DAILY 08/09/21 02/14/22 History furosemide 40 mg tablet 20 mg PO DAILY 08/09/21 02/14/22 History nadolol 20 mg tablet 20 mg PO DAILY 08/09/21 02/14/22 History spironolactone 100 mg tablet 50 mg PO DAILY 08/09/21 02/14/22 History cephalexin 500 mg tablet 500 mg PO Q12H 12/20/21 02/14/22 History hydrocodone 5 mg-acetaminophen 325 1 tablet PO Q8H PRN Pain 12/20/21 02/14/22 History mg tablet sildena
--- NOTE | 2022-04-17 08:42 | PM.IMHP ---
H&P: HPI History of Present Illness Date/Time: 04/17/22 08:42 Chief Complaint: Left foot wound Narrative: Patient follows up in [facility] today for re-evaluation of left hallux wound. The patient is 6 months status post amputation of the 2nd and 3rd ray and 5 months status post debridement and graft application. No new concerns. Review of Systems Review of Systems: All systems reviewed & are unremarkable except as noted in HPI and below Eyes: Eyes: Reports no additional eye complaints ENT: Reports system reviewed and no additional complaints, except as documented Cardiovascular: Cardiovascular: Reports no additional cardiovascular complaints Respiratory: Respiratory: Reports no additional respiratory complaints Gastrointestinal: Gastrointestinal: Reports no additional gastrointestinal complaints Genitourinary: Genitourinary: Reports no additional male genitourinary complaints Neurologic: Reports system reviewed and no additional complaints, except as documented and Denies confusion Psychiatric: Psychiatric: Reports no additional psychiatric complaints and Denies confusion Endocrine: Endocrine: Reports no additional endocrine complaints Hematologic/Lymphatic: Hematologic/Lymphatic: Reports no additional hematologic/lymphatic complaints Allergic/Immunologic: Allergic/Immunologic: Reports no additional allergic/immunologic complaints [facility] Past Medical History Medical History Abrasion, knee Abscess of foot including toes Alcoholic cirrhosis of liver He has abstained from alcohol for at least 2 years as of July 2020. Cirrhosis Essential hypertension Fall Gastroesophageal reflux disease Hyponatremia Left ankle pain Necrotizing fasciitis of ankle and foot Neuropathy Paroxysmal atrial fibrillation Surgical History Surgical History History of surgery on arm (~2012) ORIF right humerus fracture. History of surgery on wrist History of ventral hernia repair (~11/2013) Subsequent abdominal wall exploration with drainage of a seroma at the same site in 03/2014. Family History Family History Mother Hypertension Family history of diabetes mellitus in first degree relative Diabetes mellitus Father Family history of pancreatic cancer Social History Social History Social History: The patient lives alone in [place]. Retired from [employer]. He has a longstanding history of alcohol abuse. He also endorses marijuana use intermittently in a social setting. He designates his daughter Shawna as his surrogate decision maker and wishes to be a full code. Smoking status: Never smoker Alcohol intake: former Drinks per week: 1 Alcohol use details: QUIT EXCESSIVE ETOH 2017 Substance use: current Substance use type: marijuana Other substance usage details: EDIBLES, SMOKES MARIJUANA Last use: 12/27/20 Gender identity (if verbalized by the patient): Male Sexual Orientation (if Verbalized by the Patient): Straight or Heterosexual Spiritual care concerns: No Meds Home Medications and Allergies Home Medications Medication Instructions Recorded Confirmed Type omeprazole 20 mg capsule,delayed 40 mg PO BID 08/19/19 02/14/22 History release thiamine HCl (vitamin B1) 250 mg 250 mg PO DAILY 08/19/19 02/14/22 History tablet ciprofloxacin HCl 500 mg tablet 500 mg PO DAILY 08/09/21 02/14/22 History furosemide 40 mg tablet 20 mg PO DAILY 08/09/21 02/14/22 History nadolol 20 mg tablet 20 mg PO DAILY 08/09/21 02/14/22 History spironolactone 100 mg tablet 50 mg PO DAILY 08/09/21 02/14/22 History cephalexin 500 mg tablet 500 mg PO Q12H 12/20/21 02/14/22 History hydrocodone 5 mg-acetaminophen 325 1 tablet PO Q8H PRN Pain 12/20/21 02/14/22 History mg tablet sildena
--- NOTE | 2022-04-24 09:07 | PM.IMHP ---
H&P: HPI History of Present Illness Date/Time: 04/24/22 09:07 Chief Complaint: Left foot wound Narrative: Patient follows up in [facility] today for re-evaluation of left hallux wound. The patient is 6 months status post amputation of the 2nd and 3rd ray and 5 months status post debridement and graft application. No new concerns. Review of Systems Review of Systems: All systems reviewed & are unremarkable except as noted in HPI and below Eyes: Eyes: Reports no additional eye complaints ENT: Reports system reviewed and no additional complaints, except as documented Cardiovascular: Cardiovascular: Reports no additional cardiovascular complaints Respiratory: Respiratory: Reports no additional respiratory complaints Gastrointestinal: Gastrointestinal: Reports no additional gastrointestinal complaints Genitourinary: Genitourinary: Reports no additional male genitourinary complaints Neurologic: Reports system reviewed and no additional complaints, except as documented and Denies confusion Psychiatric: Psychiatric: Reports no additional psychiatric complaints and Denies confusion Endocrine: Endocrine: Reports no additional endocrine complaints Hematologic/Lymphatic: Hematologic/Lymphatic: Reports no additional hematologic/lymphatic complaints Allergic/Immunologic: Allergic/Immunologic: Reports no additional allergic/immunologic complaints [facility] Past Medical History Medical History Abrasion, knee Abscess of foot including toes Alcoholic cirrhosis of liver He has abstained from alcohol for at least 2 years as of July 2020. Cirrhosis Essential hypertension Fall Gastroesophageal reflux disease Hyponatremia Left ankle pain Necrotizing fasciitis of ankle and foot Neuropathy Paroxysmal atrial fibrillation Surgical History Surgical History History of surgery on arm (~2012) ORIF right humerus fracture. History of surgery on wrist History of ventral hernia repair (~11/2013) Subsequent abdominal wall exploration with drainage of a seroma at the same site in 03/2014. Family History Family History Mother Hypertension Family history of diabetes mellitus in first degree relative Diabetes mellitus Father Family history of pancreatic cancer Social History Social History Social History: The patient lives alone in [place]. Retired from [employer]. He has a longstanding history of alcohol abuse. He also endorses marijuana use intermittently in a social setting. He designates his daughter Shawna as his surrogate decision maker and wishes to be a full code. Smoking status: Never smoker Alcohol intake: former Drinks per week: 1 Alcohol use details: QUIT EXCESSIVE ETOH 2017 Substance use: current Substance use type: marijuana Other substance usage details: EDIBLES, SMOKES MARIJUANA Last use: 12/27/20 Gender identity (if verbalized by the patient): Male Sexual Orientation (if Verbalized by the Patient): Straight or Heterosexual Spiritual care concerns: No Meds Home Medications and Allergies Home Medications Medication Instructions Recorded Confirmed Type omeprazole 20 mg capsule,delayed 40 mg PO BID 08/19/19 02/14/22 History release thiamine HCl (vitamin B1) 250 mg 250 mg PO DAILY 08/19/19 02/14/22 History tablet ciprofloxacin HCl 500 mg tablet 500 mg PO DAILY 08/09/21 02/14/22 History furosemide 40 mg tablet 20 mg PO DAILY 08/09/21 02/14/22 History nadolol 20 mg tablet 20 mg PO DAILY 08/09/21 02/14/22 History spironolactone 100 mg tablet 50 mg PO DAILY 08/09/21 02/14/22 History cephalexin 500 mg tablet 500 mg PO Q12H 12/20/21 02/14/22 History hydrocodone 5 mg-acetaminophen 325 1 tablet PO Q8H PRN Pain 12/20/21 02/14/22 History mg tablet sildena
--- NOTE | 2022-05-01 08:52 | PM.IMHP ---
H&P: HPI History of Present Illness Date/Time: 05/01/22 08:52 Chief Complaint: Left foot wound Narrative: Patient follows up in [facility] today for re-evaluation of left hallux wound. The patient is 6 months status post amputation of the 2nd and 3rd ray and 5 months status post debridement and graft application. No new concerns. Tolerating TCC well. Review of Systems Review of Systems: All systems reviewed & are unremarkable except as noted in HPI and below Eyes: Eyes: Reports no additional eye complaints ENT: Reports system reviewed and no additional complaints, except as documented Cardiovascular: Cardiovascular: Reports no additional cardiovascular complaints Respiratory: Respiratory: Reports no additional respiratory complaints Gastrointestinal: Gastrointestinal: Reports no additional gastrointestinal complaints Genitourinary: Genitourinary: Reports no additional male genitourinary complaints Neurologic: Reports system reviewed and no additional complaints, except as documented and Denies confusion Psychiatric: Psychiatric: Reports no additional psychiatric complaints and Denies confusion Endocrine: Endocrine: Reports no additional endocrine complaints Hematologic/Lymphatic: Hematologic/Lymphatic: Reports no additional hematologic/lymphatic complaints Allergic/Immunologic: Allergic/Immunologic: Reports no additional allergic/immunologic complaints [facility] Past Medical History Medical History Abrasion, knee Abscess of foot including toes Alcoholic cirrhosis of liver He has abstained from alcohol for at least 2 years as of July 2020. Cirrhosis Essential hypertension Fall Gastroesophageal reflux disease Hyponatremia Left ankle pain Necrotizing fasciitis of ankle and foot Neuropathy Paroxysmal atrial fibrillation Surgical History Surgical History History of surgery on arm (~2012) ORIF right humerus fracture. History of surgery on wrist History of ventral hernia repair (~11/2013) Subsequent abdominal wall exploration with drainage of a seroma at the same site in 03/2014. Family History Family History Mother Hypertension Family history of diabetes mellitus in first degree relative Diabetes mellitus Father Family history of pancreatic cancer Social History Social History Social History: The patient lives alone in [place]. Retired from [employer]. He has a longstanding history of alcohol abuse. He also endorses marijuana use intermittently in a social setting. He designates his daughter Shawna as his surrogate decision maker and wishes to be a full code. Smoking status: Never smoker Alcohol intake: former Drinks per week: 1 Alcohol use details: QUIT EXCESSIVE ETOH 2018 Substance use: current Substance use type: marijuana Other substance usage details: EDIBLES, SMOKES MARIJUANA Last use: 12/27/20 Gender identity (if verbalized by the patient): Male Sexual Orientation (if Verbalized by the Patient): Straight or Heterosexual Spiritual care concerns: No Meds Home Medications and Allergies Home Medications Medication Instructions Recorded Confirmed Type omeprazole 20 mg capsule,delayed 40 mg PO BID 08/19/19 02/14/22 History release thiamine HCl (vitamin B1) 250 mg 250 mg PO DAILY 08/19/19 02/14/22 History tablet ciprofloxacin HCl 500 mg tablet 500 mg PO DAILY 08/09/21 02/14/22 History furosemide 40 mg tablet 20 mg PO DAILY 08/09/21 02/14/22 History nadolol 20 mg tablet 20 mg PO DAILY 08/09/21 02/14/22 History spironolactone 100 mg tablet 50 mg PO DAILY 08/09/21 02/14/22 History cephalexin 500 mg tablet 500 mg PO Q12H 12/20/21 02/14/22 History hydrocodone 5 mg-acetaminophen 325 1 tablet PO Q8H PRN Pain 12/20/21 02/14/22 History
--- NOTE | 2022-05-08 09:00 | PM.IMHP ---
H&P: HPI History of Present Illness Date/Time: 05/08/22 09:00 Chief Complaint: Left foot wound Narrative: Patient follows up in [facility] today for re-evaluation of left hallux wound. The patient is 6 months status post amputation of the 2nd and 3rd ray and 5 months status post debridement and graft application. No new concerns. Tolerating TCC well. Review of Systems Review of Systems: All systems reviewed & are unremarkable except as noted in HPI and below Eyes: Eyes: Reports no additional eye complaints ENT: Reports system reviewed and no additional complaints, except as documented Cardiovascular: Cardiovascular: Reports no additional cardiovascular complaints Respiratory: Respiratory: Reports no additional respiratory complaints Gastrointestinal: Gastrointestinal: Reports no additional gastrointestinal complaints Genitourinary: Genitourinary: Reports no additional male genitourinary complaints Neurologic: Reports system reviewed and no additional complaints, except as documented and Denies confusion Psychiatric: Psychiatric: Reports no additional psychiatric complaints and Denies confusion Endocrine: Endocrine: Reports no additional endocrine complaints Hematologic/Lymphatic: Hematologic/Lymphatic: Reports no additional hematologic/lymphatic complaints Allergic/Immunologic: Allergic/Immunologic: Reports no additional allergic/immunologic complaints [facility] Past Medical History Medical History Abrasion, knee Abscess of foot including toes Alcoholic cirrhosis of liver He has abstained from alcohol for at least 2 years as of July 2020. Cirrhosis Essential hypertension Fall Gastroesophageal reflux disease Hyponatremia Left ankle pain Necrotizing fasciitis of ankle and foot Neuropathy Paroxysmal atrial fibrillation Surgical History Surgical History History of surgery on arm (~2012) ORIF right humerus fracture. History of surgery on wrist History of ventral hernia repair (~11/2013) Subsequent abdominal wall exploration with drainage of a seroma at the same site in 03/2014. Family History Family History Mother Hypertension Family history of diabetes mellitus in first degree relative Diabetes mellitus Father Family history of pancreatic cancer Social History Social History Social History: The patient lives alone in [place]. Retired from [employer]. He has a longstanding history of alcohol abuse. He also endorses marijuana use intermittently in a social setting. He designates his daughter Shawna as his surrogate decision maker and wishes to be a full code. Smoking status: Never smoker Alcohol intake: former Drinks per week: 1 Alcohol use details: QUIT EXCESSIVE ETOH 2018 Substance use: current Substance use type: marijuana Other substance usage details: EDIBLES, SMOKES MARIJUANA Last use: 12/27/20 Gender identity (if verbalized by the patient): Male Sexual Orientation (if Verbalized by the Patient): Straight or Heterosexual Spiritual care concerns: No Meds Home Medications and Allergies Home Medications Medication Instructions Recorded Confirmed Type omeprazole 20 mg capsule,delayed 40 mg PO BID 08/19/19 02/14/22 History release thiamine HCl (vitamin B1) 250 mg 250 mg PO DAILY 08/19/19 02/14/22 History tablet ciprofloxacin HCl 500 mg tablet 500 mg PO DAILY 08/09/21 02/14/22 History furosemide 40 mg tablet 20 mg PO DAILY 08/09/21 02/14/22 History nadolol 20 mg tablet 20 mg PO DAILY 08/09/21 02/14/22 History spironolactone 100 mg tablet 50 mg PO DAILY 08/09/21 02/14/22 History cephalexin 500 mg tablet 500 mg PO Q12H 12/20/21 02/14/22 History hydrocodone 5 mg-acetaminophen 325 1 tablet PO Q8H PRN Pain 12/20/21 02/14/22 History
--- NOTE | 2022-05-18 09:08 | PCWOUND ---
wocn note Patient did not show up for appointment
--- NOTE | 2022-05-22 08:40 | PM.IMHP ---
H&P: HPI History of Present Illness Date/Time: 05/22/22 08:40 Chief Complaint: Left foot wound Narrative: Patient follows up in [facility] today for re-evaluation of left hallux wound. The patient is 7 months status post amputation of the 2nd and 3rd ray and 5 months status post debridement and graft application. No new concerns. Tolerating TCC well. Review of Systems Review of Systems: All systems reviewed & are unremarkable except as noted in HPI and below Eyes: Eyes: Reports no additional eye complaints ENT: Reports system reviewed and no additional complaints, except as documented Cardiovascular: Cardiovascular: Reports no additional cardiovascular complaints Respiratory: Respiratory: Reports no additional respiratory complaints Gastrointestinal: Gastrointestinal: Reports no additional gastrointestinal complaints Genitourinary: Genitourinary: Reports no additional male genitourinary complaints Neurologic: Reports system reviewed and no additional complaints, except as documented and Denies confusion Psychiatric: Psychiatric: Reports no additional psychiatric complaints and Denies confusion Endocrine: Endocrine: Reports no additional endocrine complaints Hematologic/Lymphatic: Hematologic/Lymphatic: Reports no additional hematologic/lymphatic complaints Allergic/Immunologic: Allergic/Immunologic: Reports no additional allergic/immunologic complaints [facility] Past Medical History Medical History Abrasion, knee Abscess of foot including toes Alcoholic cirrhosis of liver He has abstained from alcohol for at least 2 years as of July 2020. Cirrhosis Essential hypertension Fall Gastroesophageal reflux disease Hyponatremia Left ankle pain Necrotizing fasciitis of ankle and foot Neuropathy Paroxysmal atrial fibrillation Surgical History Surgical History History of surgery on arm (~2012) ORIF right humerus fracture. History of surgery on wrist History of ventral hernia repair (~11/2013) Subsequent abdominal wall exploration with drainage of a seroma at the same site in 03/2014. Family History Family History Mother Hypertension Family history of diabetes mellitus in first degree relative Diabetes mellitus Father Family history of pancreatic cancer Social History Social History Social History: The patient lives alone in [place]. Retired from [employer]. He has a longstanding history of alcohol abuse. He also endorses marijuana use intermittently in a social setting. He designates his daughter Shawna as his surrogate decision maker and wishes to be a full code. Smoking status: Never smoker Alcohol intake: former Drinks per week: 1 Alcohol use details: QUIT EXCESSIVE ETOH 2018 Substance use: current Substance use type: marijuana Other substance usage details: EDIBLES, SMOKES MARIJUANA Last use: 12/27/20 Gender identity (if verbalized by the patient): Male Sexual Orientation (if Verbalized by the Patient): Straight or Heterosexual Spiritual care concerns: No Meds Home Medications and Allergies Home Medications Medication Instructions Recorded Confirmed Type omeprazole 20 mg capsule,delayed 40 mg PO BID 08/19/19 02/14/22 History release thiamine HCl (vitamin B1) 250 mg 250 mg PO DAILY 08/19/19 02/14/22 History tablet ciprofloxacin HCl 500 mg tablet 500 mg PO DAILY 08/09/21 02/14/22 History furosemide 40 mg tablet 20 mg PO DAILY 08/09/21 02/14/22 History nadolol 20 mg tablet 20 mg PO DAILY 08/09/21 02/14/22 History spironolactone 100 mg tablet 50 mg PO DAILY 08/09/21 02/14/22 History cephalexin 500 mg tablet 500 mg PO Q12H 12/20/21 02/14/22 History hydrocodone 5 mg-acetaminophen 325 1 tablet PO Q8H PRN Pain 12/20/21 02/14/22 History
--- NOTE | 2022-05-29 08:44 | PM.PNORT ---
Subjective Subjective Date/Time Seen: 05/29/22 08:44 Objective Data Meds/Results Medications: Active Medications Generic Name Dose Route Start Last Admin Trade Name Freq PRN Reason Stop Dose Admin Gentamicin Sulfate 1 applic 04/03/22 08:52 Gentamicin Sulfate 0.1% Oint 15 Gm Tube TOPICAL 07/03/22 23:55 PRN PRN Wound Care Wound Care/Dressing Products 1 each 04/03/22 08:51 Foam Bandage (Mepilex 4x4) Bandage TOPICAL 07/03/22 23:55 PRN PRN Wound Care
--- NOTE | 2022-05-29 09:01 | PM.IMHP ---
H&P: HPI History of Present Illness Date/Time: 05/29/22 09:01 Chief Complaint: Left foot wound Narrative: Patient follows up in [facility] today for re-evaluation of left hallux wound. The patient is 7 months status post amputation of the 2nd and 3rd ray and 5 months status post debridement and graft application. No new concerns. Transitioned back into his regular shoes independently. Review of Systems Review of Systems: All systems reviewed & are unremarkable except as noted in HPI and below Eyes: Eyes: Reports no additional eye complaints ENT: Reports system reviewed and no additional complaints, except as documented Cardiovascular: Cardiovascular: Reports no additional cardiovascular complaints Respiratory: Respiratory: Reports no additional respiratory complaints Gastrointestinal: Gastrointestinal: Reports no additional gastrointestinal complaints Genitourinary: Genitourinary: Reports no additional male genitourinary complaints Neurologic: Reports system reviewed and no additional complaints, except as documented and Denies confusion Psychiatric: Psychiatric: Reports no additional psychiatric complaints and Denies confusion Endocrine: Endocrine: Reports no additional endocrine complaints Hematologic/Lymphatic: Hematologic/Lymphatic: Reports no additional hematologic/lymphatic complaints Allergic/Immunologic: Allergic/Immunologic: Reports no additional allergic/immunologic complaints [facility] Past Medical History Medical History Abrasion, knee Abscess of foot including toes Alcoholic cirrhosis of liver He has abstained from alcohol for at least 2 years as of July 2020. Cirrhosis Essential hypertension Fall Gastroesophageal reflux disease Hyponatremia Left ankle pain Necrotizing fasciitis of ankle and foot Neuropathy Paroxysmal atrial fibrillation Surgical History Surgical History History of surgery on arm (~2012) ORIF right humerus fracture. History of surgery on wrist History of ventral hernia repair (~11/2013) Subsequent abdominal wall exploration with drainage of a seroma at the same site in 03/2014. Family History Family History Mother Hypertension Family history of diabetes mellitus in first degree relative Diabetes mellitus Father Family history of pancreatic cancer Social History Social History Social History: The patient lives alone in [place]. Retired from [employer]. He has a longstanding history of alcohol abuse. He also endorses marijuana use intermittently in a social setting. He designates his daughter Shawna as his surrogate decision maker and wishes to be a full code. Smoking status: Never smoker Alcohol intake: former Drinks per week: 1 Alcohol use details: QUIT EXCESSIVE ETOH 2017 Substance use: current Substance use type: marijuana Other substance usage details: EDIBLES, SMOKES MARIJUANA Last use: 12/27/20 Gender identity (if verbalized by the patient): Male Sexual Orientation (if Verbalized by the Patient): Straight or Heterosexual Spiritual care concerns: No Meds Home Medications and Allergies Home Medications Medication Instructions Recorded Confirmed Type omeprazole 20 mg capsule,delayed 40 mg PO BID 08/19/19 02/14/22 History release thiamine HCl (vitamin B1) 250 mg 250 mg PO DAILY 08/19/19 02/14/22 History tablet ciprofloxacin HCl 500 mg tablet 500 mg PO DAILY 08/09/21 02/14/22 History furosemide 40 mg tablet 20 mg PO DAILY 08/09/21 02/14/22 History nadolol 20 mg tablet 20 mg PO DAILY 08/09/21 02/14/22 History spironolactone 100 mg tablet 50 mg PO DAILY 08/09/21 02/14/22 History cephalexin 500 mg tablet 500 mg PO Q12H 12/20/21 02/14/22 History hydrocodone 5 mg-acetaminophen 325 1 tablet PO Q8H
--- NOTE | 2022-06-05 09:48 | PM.PNORT ---
Subjective Subjective Date/Time Seen: 06/05/22 09:48 Objective Data Meds/Results Medications: Active Medications Generic Name Dose Route Start Last Admin Trade Name Freq PRN Reason Stop Dose Admin Gentamicin Sulfate 1 applic 04/03/22 08:52 Gentamicin Sulfate 0.1% Oint 15 Gm Tube TOPICAL 07/03/22 23:55 PRN PRN Wound Care Wound Care/Dressing Products 1 each 04/03/22 08:51 Foam Bandage (Mepilex 4x4) Bandage TOPICAL 07/03/22 23:55 PRN PRN Wound Care
--- NOTE | 2022-06-05 10:18 | PM.IMHP ---
H&P: HPI History of Present Illness Date/Time: 06/05/22 10:18 Chief Complaint: Left foot wound Narrative: Patient follows up in [place] wound clinic today for re-evaluation of left hallux wound. The patient is 7 months status post amputation of the 2nd and 3rd ray and 5 months status post debridement and graft application. No new concerns. Transitioned back into his regular shoes independently. Review of Systems Review of Systems: All systems reviewed & are unremarkable except as noted in HPI and below Eyes: Eyes: Reports no additional eye complaints ENT: Reports system reviewed and no additional complaints, except as documented Cardiovascular: Cardiovascular: Reports no additional cardiovascular complaints Respiratory: Respiratory: Reports no additional respiratory complaints Gastrointestinal: Gastrointestinal: Reports no additional gastrointestinal complaints Genitourinary: Genitourinary: Reports no additional male genitourinary complaints Neurologic: Reports system reviewed and no additional complaints, except as documented and Denies confusion Psychiatric: Psychiatric: Reports no additional psychiatric complaints and Denies confusion Endocrine: Endocrine: Reports no additional endocrine complaints Hematologic/Lymphatic: Hematologic/Lymphatic: Reports no additional hematologic/lymphatic complaints Allergic/Immunologic: Allergic/Immunologic: Reports no additional allergic/immunologic complaints [facility] Past Medical History Medical History Abrasion, knee Abscess of foot including toes Alcoholic cirrhosis of liver He has abstained from alcohol for at least 2 years as of July 2020. Cirrhosis Essential hypertension Fall Gastroesophageal reflux disease Hyponatremia Left ankle pain Necrotizing fasciitis of ankle and foot Neuropathy Paroxysmal atrial fibrillation Surgical History Surgical History History of surgery on arm (~2012) ORIF right humerus fracture. History of surgery on wrist History of ventral hernia repair (~11/2013) Subsequent abdominal wall exploration with drainage of a seroma at the same site in 03/2014. Family History Family History Mother Hypertension Family history of diabetes mellitus in first degree relative Diabetes mellitus Father Family history of pancreatic cancer Social History Social History Social History: The patient lives alone in [place]. Retired from [employer]. He has a longstanding history of alcohol abuse. He also endorses marijuana use intermittently in a social setting. He designates his daughter Shawna as his surrogate decision maker and wishes to be a full code. Smoking status: Never smoker Alcohol intake: former Drinks per week: 1 Alcohol use details: QUIT EXCESSIVE ETOH 2017 Substance use: current Substance use type: marijuana Other substance usage details: EDIBLES, SMOKES MARIJUANA Last use: 12/27/20 Gender identity (if verbalized by the patient): Male Sexual Orientation (if Verbalized by the Patient): Straight or Heterosexual Spiritual care concerns: No Meds Home Medications and Allergies Home Medications Medication Instructions Recorded Confirmed Type omeprazole 20 mg capsule,delayed 40 mg PO BID 08/19/19 02/14/22 History release thiamine HCl (vitamin B1) 250 mg 250 mg PO DAILY 08/19/19 02/14/22 History tablet ciprofloxacin HCl 500 mg tablet 500 mg PO DAILY 08/09/21 02/14/22 History furosemide 40 mg tablet 20 mg PO DAILY 08/09/21 02/14/22 History nadolol 20 mg tablet 20 mg PO DAILY 08/09/21 02/14/22 History spironolactone 100 mg tablet 50 mg PO DAILY 08/09/21 02/14/22 History cephalexin 500 mg tablet 500 mg PO Q12H 12/20/21 02/14/22 History hydrocodone 5 mg-acetaminophen 325 1 tablet PO Q8H
--- NOTE | 2022-06-12 09:20 | PM.IMHP ---
H&P: HPI History of Present Illness Date/Time: 06/12/22 09:20 Chief Complaint: Left foot wound Narrative: Patient follows up in [place] wound clinic today for re-evaluation of left hallux wound. Reports recent fatigue and forgetfulness. No signs of infection. Review of Systems Review of Systems: All systems reviewed & are unremarkable except as noted in HPI and below Eyes: Eyes: Reports no additional eye complaints ENT: Reports system reviewed and no additional complaints, except as documented Cardiovascular: Cardiovascular: Reports no additional cardiovascular complaints Respiratory: Respiratory: Reports no additional respiratory complaints Gastrointestinal: Gastrointestinal: Reports no additional gastrointestinal complaints Genitourinary: Genitourinary: Reports no additional male genitourinary complaints Neurologic: Reports system reviewed and no additional complaints, except as documented and Denies confusion Psychiatric: Psychiatric: Reports no additional psychiatric complaints and Denies confusion Endocrine: Endocrine: Reports no additional endocrine complaints Hematologic/Lymphatic: Hematologic/Lymphatic: Reports no additional hematologic/lymphatic complaints Allergic/Immunologic: Allergic/Immunologic: Reports no additional allergic/immunologic complaints [facility] Past Medical History Medical History Abrasion, knee Abscess of foot including toes Alcoholic cirrhosis of liver He has abstained from alcohol for at least 2 years as of July 2020. Cirrhosis Essential hypertension Fall Gastroesophageal reflux disease Hyponatremia Left ankle pain Necrotizing fasciitis of ankle and foot Neuropathy Paroxysmal atrial fibrillation Surgical History Surgical History History of surgery on arm (~2012) ORIF right humerus fracture. History of surgery on wrist History of ventral hernia repair (~11/2013) Subsequent abdominal wall exploration with drainage of a seroma at the same site in 03/2014. Family History Family History Mother Hypertension Family history of diabetes mellitus in first degree relative Diabetes mellitus Father Family history of pancreatic cancer Social History Social History Social History: The patient lives alone in [place]. Retired from [employer]. He has a longstanding history of alcohol abuse. He also endorses marijuana use intermittently in a social setting. He designates his daughter Shawna as his surrogate decision maker and wishes to be a full code. Smoking status: Never smoker Alcohol intake: former Drinks per week: 1 Alcohol use details: QUIT EXCESSIVE ETOH 2017 Substance use: current Substance use type: marijuana Other substance usage details: EDIBLES, SMOKES MARIJUANA Last use: 12/27/20 Gender identity (if verbalized by the patient): Male Sexual Orientation (if Verbalized by the Patient): Straight or Heterosexual Spiritual care concerns: No Meds Home Medications and Allergies Home Medications Medication Instructions Recorded Confirmed Type omeprazole 20 mg capsule,delayed 40 mg PO BID 08/19/19 02/14/22 History release thiamine HCl (vitamin B1) 250 mg 250 mg PO DAILY 08/19/19 02/14/22 History tablet ciprofloxacin HCl 500 mg tablet 500 mg PO DAILY 08/09/21 02/14/22 History furosemide 40 mg tablet 20 mg PO DAILY 08/09/21 02/14/22 History nadolol 20 mg tablet 20 mg PO DAILY 08/09/21 02/14/22 History spironolactone 100 mg tablet 50 mg PO DAILY 08/09/21 02/14/22 History cephalexin 500 mg tablet 500 mg PO Q12H 12/20/21 02/14/22 History hydrocodone 5 mg-acetaminophen 325 1 tablet PO Q8H PRN Pain 12/20/21 02/14/22 History mg tablet sildenafil 100 mg tablet 100 mg PO DAILY PRN sexual 02/13/22 02/13/22 Rx activity #8 ta
--- NOTE | 2022-06-19 09:00 | PM.IMHP ---
H&P: HPI History of Present Illness Date/Time: 06/19/22 09:00 Chief Complaint: Left foot wound Narrative: Patient follows up in [facility] wound clinic today for re-evaluation of left hallux wound. No new complaints. Review of Systems Review of Systems: All systems reviewed & are unremarkable except as noted in HPI and below Eyes: Eyes: Reports no additional eye complaints ENT: Reports system reviewed and no additional complaints, except as documented Cardiovascular: Cardiovascular: Reports no additional cardiovascular complaints Respiratory: Respiratory: Reports no additional respiratory complaints Gastrointestinal: Gastrointestinal: Reports no additional gastrointestinal complaints Genitourinary: Genitourinary: Reports no additional male genitourinary complaints Neurologic: Reports system reviewed and no additional complaints, except as documented and Denies confusion Psychiatric: Psychiatric: Reports no additional psychiatric complaints and Denies confusion Endocrine: Endocrine: Reports no additional endocrine complaints Hematologic/Lymphatic: Hematologic/Lymphatic: Reports no additional hematologic/lymphatic complaints Allergic/Immunologic: Allergic/Immunologic: Reports no additional allergic/immunologic complaints [facility] Past Medical History Medical History Abrasion, knee Abscess of foot including toes Alcoholic cirrhosis of liver He has abstained from alcohol for at least 2 years as of July 2020. Cirrhosis Essential hypertension Fall Gastroesophageal reflux disease Hyponatremia Left ankle pain Necrotizing fasciitis of ankle and foot Neuropathy Paroxysmal atrial fibrillation Surgical History Surgical History History of surgery on arm (~2012) ORIF right humerus fracture. History of surgery on wrist History of ventral hernia repair (~11/2013) Subsequent abdominal wall exploration with drainage of a seroma at the same site in 03/2014. Family History Family History Mother Hypertension Family history of diabetes mellitus in first degree relative Diabetes mellitus Father Family history of pancreatic cancer Social History Social History Social History: The patient lives alone in [place]. Retired from [employer]. He has a longstanding history of alcohol abuse. He also endorses marijuana use intermittently in a social setting. He designates his daughter Shawna as his surrogate decision maker and wishes to be a full code. Smoking status: Never smoker Alcohol intake: former Drinks per week: 1 Alcohol use details: QUIT EXCESSIVE ETOH 2017 Substance use: current Substance use type: marijuana Other substance usage details: EDIBLES, SMOKES MARIJUANA Last use: 12/27/20 Gender identity (if verbalized by the patient): Male Sexual Orientation (if Verbalized by the Patient): Straight or Heterosexual Spiritual care concerns: No Meds Home Medications and Allergies Home Medications Medication Instructions Recorded Confirmed Type omeprazole 20 mg capsule,delayed 40 mg PO BID 08/19/19 02/14/22 History release thiamine HCl (vitamin B1) 250 mg 250 mg PO DAILY 08/19/19 02/14/22 History tablet ciprofloxacin HCl 500 mg tablet 500 mg PO DAILY 08/09/21 02/14/22 History furosemide 40 mg tablet 20 mg PO DAILY 08/09/21 02/14/22 History nadolol 20 mg tablet 20 mg PO DAILY 08/09/21 02/14/22 History spironolactone 100 mg tablet 50 mg PO DAILY 08/09/21 02/14/22 History cephalexin 500 mg tablet 500 mg PO Q12H 12/20/21 02/14/22 History hydrocodone 5 mg-acetaminophen 325 1 tablet PO Q8H PRN Pain 12/20/21 02/14/22 History mg tablet sildenafil 100 mg tablet 100 mg PO DAILY PRN sexual 02/13/22 02/13/22 Rx activity #8 tabs meloxicam 15 mg tablet 15 mg PO DAILY
--- NOTE | 2022-06-26 09:03 | PM.IMHP ---
H&P: HPI History of Present Illness Date/Time: 06/26/22 09:03 Chief Complaint: Left foot wound Narrative: Patient follows up in [facility] clinic today for re-evaluation of left hallux wound. No new complaints. Ready for cast application for expedited healing today. No concerns for new infection. Review of Systems Review of Systems: All systems reviewed & are unremarkable except as noted in HPI and below Eyes: Eyes: Reports no additional eye complaints ENT: Reports system reviewed and no additional complaints, except as documented Cardiovascular: Cardiovascular: Reports no additional cardiovascular complaints Respiratory: Respiratory: Reports no additional respiratory complaints Gastrointestinal: Gastrointestinal: Reports no additional gastrointestinal complaints Genitourinary: Genitourinary: Reports no additional male genitourinary complaints Neurologic: Reports system reviewed and no additional complaints, except as documented and Denies confusion Psychiatric: Psychiatric: Reports no additional psychiatric complaints and Denies confusion Endocrine: Endocrine: Reports no additional endocrine complaints Hematologic/Lymphatic: Hematologic/Lymphatic: Reports no additional hematologic/lymphatic complaints Allergic/Immunologic: Allergic/Immunologic: Reports no additional allergic/immunologic complaints [facility] Past Medical History Medical History Abrasion, knee Abscess of foot including toes Alcoholic cirrhosis of liver He has abstained from alcohol for at least 2 years as of July 2020. Cirrhosis Essential hypertension Fall Gastroesophageal reflux disease Hyponatremia Left ankle pain Necrotizing fasciitis of ankle and foot Neuropathy Paroxysmal atrial fibrillation Surgical History Surgical History History of surgery on arm (~2012) ORIF right humerus fracture. History of surgery on wrist History of ventral hernia repair (~11/2013) Subsequent abdominal wall exploration with drainage of a seroma at the same site in 03/2014. Family History Family History Mother Hypertension Family history of diabetes mellitus in first degree relative Diabetes mellitus Father Family history of pancreatic cancer Social History Social History Social History: The patient lives alone in [place]. Retired from [employer]. He has a longstanding history of alcohol abuse. He also endorses marijuana use intermittently in a social setting. He designates his daughter Shawna as his surrogate decision maker and wishes to be a full code. Smoking status: Never smoker Alcohol intake: former Drinks per week: 1 Alcohol use details: QUIT EXCESSIVE ETOH 2017 Substance use: current Substance use type: marijuana Other substance usage details: EDIBLES, SMOKES MARIJUANA Last use: 12/27/20 Gender identity (if verbalized by the patient): Male Sexual Orientation (if Verbalized by the Patient): Straight or Heterosexual Spiritual care concerns: No Meds Home Medications and Allergies Home Medications Medication Instructions Recorded Confirmed Type omeprazole 20 mg capsule,delayed 40 mg PO BID 08/19/19 02/14/22 History release thiamine HCl (vitamin B1) 250 mg 250 mg PO DAILY 08/19/19 02/14/22 History tablet ciprofloxacin HCl 500 mg tablet 500 mg PO DAILY 08/09/21 02/14/22 History furosemide 40 mg tablet 20 mg PO DAILY 08/09/21 02/14/22 History nadolol 20 mg tablet 20 mg PO DAILY 08/09/21 02/14/22 History spironolactone 100 mg tablet 50 mg PO DAILY 08/09/21 02/14/22 History cephalexin 500 mg tablet 500 mg PO Q12H 12/20/21 02/14/22 History hydrocodone 5 mg-acetaminophen 325 1 tablet PO Q8H PRN Pain 12/20/21 02/14/22 History mg tablet sildenafil 100 mg tablet 100 mg PO DAILY PRN se
== END 2022-07-02 23:59 | disposition home or self-care (01) ==
LOC: ANHWOC 07:24
PROVIDERS: PCP Physician Assistant; Referring Provider Nurse Practitioner Family; Visit Provider Orthopaedic Surgery
DX: L97.529 Non-pressure chronic ulcer of other part of left foot with unspecified severity (principal); S91.302D Unspecified open wound, left foot, subsequent encounter
CPT/HCPCS: 11042; 29445; 99213; A9270; G0463

== ENCOUNTER 2022-09-25 08:37 | Outpatient (RCR) | payer OTHER, SELFPAY ==
[2022-07-03 00:05] VITALS: BMI 26.0
--- NOTE | 2022-07-03 08:32 | PM.IMHP ---
H&P: HPI History of Present Illness Date/Time: 07/03/22 08:32 Chief Complaint: Left foot wound Narrative: Patient follows up in [place] wound clinic today for re-evaluation of left hallux wound. No new complaints. No complaints of difficulties with the TCC. Review of Systems Review of Systems: All systems reviewed & are unremarkable except as noted in HPI and below Eyes: Eyes: Reports no additional eye complaints ENT: Reports system reviewed and no additional complaints, except as documented Cardiovascular: Cardiovascular: Reports no additional cardiovascular complaints Respiratory: Respiratory: Reports no additional respiratory complaints Gastrointestinal: Gastrointestinal: Reports no additional gastrointestinal complaints Genitourinary: Genitourinary: Reports no additional male genitourinary complaints Neurologic: Reports system reviewed and no additional complaints, except as documented and Denies confusion Psychiatric: Psychiatric: Reports no additional psychiatric complaints and Denies confusion Endocrine: Endocrine: Reports no additional endocrine complaints Hematologic/Lymphatic: Hematologic/Lymphatic: Reports no additional hematologic/lymphatic complaints Allergic/Immunologic: Allergic/Immunologic: Reports no additional allergic/immunologic complaints [facility] Past Medical History Medical History Abrasion, knee Abscess of foot including toes Alcoholic cirrhosis of liver He has abstained from alcohol for at least 2 years as of July 2020. Cirrhosis Essential hypertension Fall Gastroesophageal reflux disease Hyponatremia Left ankle pain Necrotizing fasciitis of ankle and foot Neuropathy Paroxysmal atrial fibrillation Surgical History Surgical History History of surgery on arm (~2012) ORIF right humerus fracture. History of surgery on wrist History of ventral hernia repair (~11/2013) Subsequent abdominal wall exploration with drainage of a seroma at the same site in 03/2014. Family History Family History Mother Hypertension Family history of diabetes mellitus in first degree relative Diabetes mellitus Father Family history of pancreatic cancer Social History Social History Social History: The patient lives alone in [place]. Retired from [employer]. He has a longstanding history of alcohol abuse. He also endorses marijuana use intermittently in a social setting. He designates his daughter Shawna as his surrogate decision maker and wishes to be a full code. Smoking status: Never smoker Alcohol intake: former Drinks per week: 1 Alcohol use details: QUIT EXCESSIVE ETOH 2017 Substance use: current Substance use type: marijuana Other substance usage details: EDIBLES, SMOKES MARIJUANA Last use: 12/27/20 Gender identity (if verbalized by the patient): Male Sexual Orientation (if Verbalized by the Patient): Straight or Heterosexual Spiritual care concerns: No Meds Home Medications and Allergies Home Medications Medication Instructions Recorded Confirmed Type omeprazole 20 mg capsule,delayed 40 mg PO BID 08/19/19 02/14/22 History release thiamine HCl (vitamin B1) 250 mg 250 mg PO DAILY 08/19/19 02/14/22 History tablet ciprofloxacin HCl 500 mg tablet 500 mg PO DAILY 08/09/21 02/14/22 History furosemide 40 mg tablet 20 mg PO DAILY 08/09/21 02/14/22 History nadolol 20 mg tablet 20 mg PO DAILY 08/09/21 02/14/22 History spironolactone 100 mg tablet 50 mg PO DAILY 08/09/21 02/14/22 History cephalexin 500 mg tablet 500 mg PO Q12H 12/20/21 02/14/22 History hydrocodone 5 mg-acetaminophen 325 1 tablet PO Q8H PRN Pain 12/20/21 02/14/22 History mg tablet sildenafil 100 mg tablet 100 mg PO DAILY PRN sexual 02/13/22 02/13/22 Rx activity #8 tabs
--- NOTE | 2022-07-10 08:52 | PM.IMHP ---
H&P: HPI History of Present Illness Date/Time: 07/10/22 08:52 Chief Complaint: Left foot wound Narrative: Patient follows up in [place] wound clinic today for re-evaluation of left hallux wound. No new complaints. No complaints of difficulties with the TCC. Review of Systems Review of Systems: All systems reviewed & are unremarkable except as noted in HPI and below Eyes: Eyes: Reports no additional eye complaints ENT: Reports system reviewed and no additional complaints, except as documented Cardiovascular: Cardiovascular: Reports no additional cardiovascular complaints Respiratory: Respiratory: Reports no additional respiratory complaints Gastrointestinal: Gastrointestinal: Reports no additional gastrointestinal complaints Genitourinary: Genitourinary: Reports no additional male genitourinary complaints Neurologic: Reports system reviewed and no additional complaints, except as documented and Denies confusion Psychiatric: Psychiatric: Reports no additional psychiatric complaints and Denies confusion Endocrine: Endocrine: Reports no additional endocrine complaints Hematologic/Lymphatic: Hematologic/Lymphatic: Reports no additional hematologic/lymphatic complaints Allergic/Immunologic: Allergic/Immunologic: Reports no additional allergic/immunologic complaints [facility] Past Medical History Medical History Abrasion, knee Abscess of foot including toes Alcoholic cirrhosis of liver He has abstained from alcohol for at least 2 years as of July 2020. Cirrhosis Essential hypertension Fall Gastroesophageal reflux disease Hyponatremia Left ankle pain Necrotizing fasciitis of ankle and foot Neuropathy Paroxysmal atrial fibrillation Surgical History Surgical History History of surgery on arm (~2012) ORIF right humerus fracture. History of surgery on wrist History of ventral hernia repair (~11/2013) Subsequent abdominal wall exploration with drainage of a seroma at the same site in 03/2014. Family History Family History Mother Hypertension Family history of diabetes mellitus in first degree relative Diabetes mellitus Father Family history of pancreatic cancer Social History Social History Social History: The patient lives alone in [place]. Retired from [employer]. He has a longstanding history of alcohol abuse. He also endorses marijuana use intermittently in a social setting. He designates his daughter Shawna as his surrogate decision maker and wishes to be a full code. Smoking status: Never smoker Alcohol intake: former Drinks per week: 1 Alcohol use details: QUIT EXCESSIVE ETOH 2017 Substance use: current Substance use type: marijuana Other substance usage details: EDIBLES, SMOKES MARIJUANA Last use: 12/27/20 Gender identity (if verbalized by the patient): Male Sexual Orientation (if Verbalized by the Patient): Straight or Heterosexual Spiritual care concerns: No Meds Home Medications and Allergies Home Medications Medication Instructions Recorded Confirmed Type omeprazole 20 mg capsule,delayed 40 mg PO BID 08/19/19 02/14/22 History release thiamine HCl (vitamin B1) 250 mg 250 mg PO DAILY 08/19/19 02/14/22 History tablet ciprofloxacin HCl 500 mg tablet 500 mg PO DAILY 08/09/21 02/14/22 History furosemide 40 mg tablet 20 mg PO DAILY 08/09/21 02/14/22 History nadolol 20 mg tablet 20 mg PO DAILY 08/09/21 02/14/22 History spironolactone 100 mg tablet 50 mg PO DAILY 08/09/21 02/14/22 History cephalexin 500 mg tablet 500 mg PO Q12H 12/20/21 02/14/22 History hydrocodone 5 mg-acetaminophen 325 1 tablet PO Q8H PRN Pain 12/20/21 02/14/22 History mg tablet sildenafil 100 mg tablet 100 mg PO DAILY PRN sexual 02/13/22 02/13/22 Rx activity #8 tabs
--- NOTE | 2022-07-17 08:31 | PM.IMHP ---
H&P: HPI History of Present Illness Date/Time: 07/17/22 08:31 Chief Complaint: Left foot wound Narrative: Patient follows up in [place] wound clinic today for re-evaluation of left hallux wound. No new complaints. No complaints of difficulties with the TCC. Review of Systems Review of Systems: All systems reviewed & are unremarkable except as noted in HPI and below Eyes: Eyes: Reports no additional eye complaints ENT: Reports system reviewed and no additional complaints, except as documented Cardiovascular: Cardiovascular: Reports no additional cardiovascular complaints Respiratory: Respiratory: Reports no additional respiratory complaints Gastrointestinal: Gastrointestinal: Reports no additional gastrointestinal complaints Genitourinary: Genitourinary: Reports no additional male genitourinary complaints Neurologic: Reports system reviewed and no additional complaints, except as documented and Denies confusion Psychiatric: Psychiatric: Reports no additional psychiatric complaints and Denies confusion Endocrine: Endocrine: Reports no additional endocrine complaints Hematologic/Lymphatic: Hematologic/Lymphatic: Reports no additional hematologic/lymphatic complaints Allergic/Immunologic: Allergic/Immunologic: Reports no additional allergic/immunologic complaints [facility] Past Medical History Medical History Abrasion, knee Abscess of foot including toes Alcoholic cirrhosis of liver He has abstained from alcohol for at least 2 years as of July 2020. Cirrhosis Essential hypertension Fall Gastroesophageal reflux disease Hyponatremia Left ankle pain Necrotizing fasciitis of ankle and foot Neuropathy Paroxysmal atrial fibrillation Surgical History Surgical History History of surgery on arm (~2012) ORIF right humerus fracture. History of surgery on wrist History of ventral hernia repair (~11/2013) Subsequent abdominal wall exploration with drainage of a seroma at the same site in 03/2014. Family History Family History Mother Hypertension Family history of diabetes mellitus in first degree relative Diabetes mellitus Father Family history of pancreatic cancer Social History Social History Social History: The patient lives alone in [place]. Retired from [employer]. He has a longstanding history of alcohol abuse. He also endorses marijuana use intermittently in a social setting. He designates his daughter Shawna as his surrogate decision maker and wishes to be a full code. Smoking status: Never smoker Alcohol intake: former Drinks per week: 1 Alcohol use details: QUIT EXCESSIVE ETOH 2017 Substance use: current Substance use type: marijuana Other substance usage details: EDIBLES, SMOKES MARIJUANA Last use: 12/27/20 Gender identity (if verbalized by the patient): Male Sexual Orientation (if Verbalized by the Patient): Straight or Heterosexual Spiritual care concerns: No Meds Home Medications and Allergies Home Medications Medication Instructions Recorded Confirmed Type omeprazole 20 mg capsule,delayed 40 mg PO BID 08/19/19 02/14/22 History release thiamine HCl (vitamin B1) 250 mg 250 mg PO DAILY 08/19/19 02/14/22 History tablet ciprofloxacin HCl 500 mg tablet 500 mg PO DAILY 08/09/21 02/14/22 History furosemide 40 mg tablet 20 mg PO DAILY 08/09/21 02/14/22 History nadolol 20 mg tablet 20 mg PO DAILY 08/09/21 02/14/22 History spironolactone 100 mg tablet 50 mg PO DAILY 08/09/21 02/14/22 History cephalexin 500 mg tablet 500 mg PO Q12H 12/20/21 02/14/22 History hydrocodone 5 mg-acetaminophen 325 1 tablet PO Q8H PRN Pain 12/20/21 02/14/22 History mg tablet sildenafil 100 mg tablet 100 mg PO DAILY PRN sexual 02/13/22 02/13/22 Rx activity #8
--- NOTE | 2022-08-07 09:03 | PM.IMHP ---
H&P: [facility] History of Present Illness Date/Time: 08/07/22 09:03 Chief Complaint: Left foot wound Narrative: Patient follows up in [place] wound clinic today for re-evaluation of left hallux wound. Wound reopened after stopping TCC. No signs of infection. Review of Systems Review of Systems: All systems reviewed & are unremarkable except as noted in HPI and below Eyes: Eyes: Reports no additional eye complaints ENT: Reports system reviewed and no additional complaints, except as documented Cardiovascular: Cardiovascular: Reports no additional cardiovascular complaints Respiratory: Respiratory: Reports no additional respiratory complaints Gastrointestinal: Gastrointestinal: Reports no additional gastrointestinal complaints Genitourinary: Genitourinary: Reports no additional male genitourinary complaints Neurologic: Reports system reviewed and no additional complaints, except as documented and Denies confusion Psychiatric: Psychiatric: Reports no additional psychiatric complaints and Denies confusion Endocrine: Endocrine: Reports no additional endocrine complaints Hematologic/Lymphatic: Hematologic/Lymphatic: Reports no additional hematologic/lymphatic complaints Allergic/Immunologic: Allergic/Immunologic: Reports no additional allergic/immunologic complaints [facility] Past Medical History Medical History Abrasion, knee Abscess of foot including toes Alcoholic cirrhosis of liver He has abstained from alcohol for at least 2 years as of July 2020. Cirrhosis Essential hypertension Fall Gastroesophageal reflux disease Hyponatremia Left ankle pain Necrotizing fasciitis of ankle and foot Neuropathy Paroxysmal atrial fibrillation Surgical History Surgical History History of surgery on arm (~2012) ORIF right humerus fracture. History of surgery on wrist History of ventral hernia repair (~11/2013) Subsequent abdominal wall exploration with drainage of a seroma at the same site in 03/2014. Family History Family History Mother Hypertension Family history of diabetes mellitus in first degree relative Diabetes mellitus Father Family history of pancreatic cancer Social History Social History Social History: The patient lives alone in [place]. Retired from [employer]. He has a longstanding history of alcohol abuse. He also endorses marijuana use intermittently in a social setting. He designates his daughter Shawna as his surrogate decision maker and wishes to be a full code. Smoking status: Never smoker Alcohol intake: former Drinks per week: 1 Alcohol use details: QUIT EXCESSIVE ETOH 2017 Substance use: current Substance use type: marijuana Other substance usage details: EDIBLES, SMOKES MARIJUANA Last use: 12/27/20 Gender identity (if verbalized by the patient): Male Sexual Orientation (if Verbalized by the Patient): Straight or Heterosexual Spiritual care concerns: No Meds Home Medications and Allergies Home Medications Medication Instructions Recorded Confirmed Type omeprazole 20 mg capsule,delayed 40 mg PO BID 08/19/19 08/03/22 History release thiamine HCl (vitamin B1) 250 mg 250 mg PO DAILY 08/19/19 08/03/22 History tablet ciprofloxacin HCl 500 mg tablet 500 mg PO DAILY 08/09/21 08/03/22 History furosemide 40 mg tablet 20 mg PO DAILY 08/09/21 08/03/22 History nadolol 20 mg tablet 20 mg PO DAILY 08/09/21 08/03/22 History spironolactone 100 mg tablet 50 mg PO DAILY 08/09/21 08/03/22 History sildenafil 100 mg tablet 100 mg PO DAILY PRN sexual 02/13/22 08/03/22 Rx activity #8 tabs meloxicam 15 mg tablet 15 mg PO DAILY #90 tabs 03/05/22 08/03/22 Rx gabapentin 600 mg tablet 600 mg PO TID #270 tabs 04/03/22 08/03/22 Rx cyclobenzaprine 5
--- NOTE | 2022-08-14 09:02 | PM.IMHP ---
H&P: HPI History of Present Illness Date/Time: 08/14/22 09:02 Chief Complaint: Left hallux ulcer Narrative: returns for follow-up [facility] for left plantar hallux ulcer. Patient had been in cast with improvement and healing of ulcer. Since out of the cast has had reopening of the ulcer. Using foam to protect. No other complaints. Review of Systems Review of Systems: All systems reviewed & are unremarkable except as noted in HPI and below Eyes: Eyes: Reports no additional eye complaints ENT: Reports system reviewed and no additional complaints, except as documented Cardiovascular: Cardiovascular: Reports no additional cardiovascular complaints Respiratory: Respiratory: Reports no additional respiratory complaints Gastrointestinal: Gastrointestinal: Reports no additional gastrointestinal complaints Genitourinary: Genitourinary: Reports no additional male genitourinary complaints Neurologic: Reports system reviewed and no additional complaints, except as documented and Denies confusion Psychiatric: Psychiatric: Reports no additional psychiatric complaints and Denies confusion Endocrine: Endocrine: Reports no additional endocrine complaints Hematologic/Lymphatic: Hematologic/Lymphatic: Reports no additional hematologic/lymphatic complaints Allergic/Immunologic: Allergic/Immunologic: Reports no additional allergic/immunologic complaints [facility] Past Medical History Medical History Abrasion, knee Abscess of foot including toes Alcoholic cirrhosis of liver He has abstained from alcohol for at least 2 years as of July 2020. Cirrhosis Essential hypertension Fall Gastroesophageal reflux disease Hyponatremia Left ankle pain Necrotizing fasciitis of ankle and foot Neuropathy Paroxysmal atrial fibrillation Surgical History Surgical History History of surgery on arm (~2012) ORIF right humerus fracture. History of surgery on wrist History of ventral hernia repair (~11/2013) Subsequent abdominal wall exploration with drainage of a seroma at the same site in 03/2014. Family History Family History Mother Hypertension Family history of diabetes mellitus in first degree relative Diabetes mellitus Father Family history of pancreatic cancer Social History Social History Social History: The patient lives alone in [place]. Retired from [employer]. He has a longstanding history of alcohol abuse. He also endorses marijuana use intermittently in a social setting. He designates his daughter Shawna as his surrogate decision maker and wishes to be a full code. Smoking status: Never smoker Alcohol intake: former Drinks per week: 1 Alcohol use details: QUIT EXCESSIVE ETOH 2017 Substance use: current Substance use type: marijuana Other substance usage details: EDIBLES, SMOKES MARIJUANA Last use: 12/27/20 Gender identity (if verbalized by the patient): Male Sexual Orientation (if Verbalized by the Patient): Straight or Heterosexual Spiritual care concerns: No Meds Home Medications and Allergies Home Medications Medication Instructions Recorded Confirmed Type omeprazole 20 mg capsule,delayed 40 mg PO BID 08/19/19 08/03/22 History release thiamine HCl (vitamin B1) 250 mg 250 mg PO DAILY 08/19/19 08/03/22 History tablet ciprofloxacin HCl 500 mg tablet 500 mg PO DAILY 08/09/21 08/03/22 History furosemide 40 mg tablet 20 mg PO DAILY 08/09/21 08/03/22 History nadolol 20 mg tablet 20 mg PO DAILY 08/09/21 08/03/22 History spironolactone 100 mg tablet 50 mg PO DAILY 08/09/21 08/03/22 History sildenafil 100 mg tablet 100 mg PO DAILY PRN sexual 02/13/22 08/03/22 Rx activity #8 tabs meloxicam 15 mg tablet 15 mg PO DAILY #90 tabs 08
--- NOTE | 2022-08-21 09:01 | PM.IMHP ---
H&P: HPI History of Present Illness Date/Time: 08/21/22 09:01 Chief Complaint: Left Foot Wound Narrative: Patient returns for follow-up [facility] for left plantar hallux ulcer. No new concerns. Awaiting orthotic modifications by [facility]. Review of Systems Review of Systems: All systems reviewed & are unremarkable except as noted in HPI and below Eyes: Eyes: Reports no additional eye complaints ENT: Reports system reviewed and no additional complaints, except as documented Cardiovascular: Cardiovascular: Reports no additional cardiovascular complaints Respiratory: Respiratory: Reports no additional respiratory complaints Gastrointestinal: Gastrointestinal: Reports no additional gastrointestinal complaints Genitourinary: Genitourinary: Reports no additional male genitourinary complaints Neurologic: Reports system reviewed and no additional complaints, except as documented and Denies confusion Psychiatric: Psychiatric: Reports no additional psychiatric complaints and Denies confusion Endocrine: Endocrine: Reports no additional endocrine complaints Hematologic/Lymphatic: Hematologic/Lymphatic: Reports no additional hematologic/lymphatic complaints Allergic/Immunologic: Allergic/Immunologic: Reports no additional allergic/immunologic complaints [facility] Past Medical History Medical History Abrasion, knee Abscess of foot including toes Alcoholic cirrhosis of liver He has abstained from alcohol for at least 2 years as of July 2020. Cirrhosis Essential hypertension Fall Gastroesophageal reflux disease Hyponatremia Left ankle pain Necrotizing fasciitis of ankle and foot Neuropathy Paroxysmal atrial fibrillation Surgical History Surgical History History of surgery on arm (~2012) ORIF right humerus fracture. History of surgery on wrist History of ventral hernia repair (~11/2013) Subsequent abdominal wall exploration with drainage of a seroma at the same site in 03/2014. Family History Family History Mother Hypertension Family history of diabetes mellitus in first degree relative Diabetes mellitus Father Family history of pancreatic cancer Social History Social History Social History: The patient lives alone in [place]. Retired from [employer]. He has a longstanding history of alcohol abuse. He also endorses marijuana use intermittently in a social setting. He designates his daughter Shawna as his surrogate decision maker and wishes to be a full code. Smoking status: Never smoker Alcohol intake: former Drinks per week: 1 Alcohol use details: QUIT EXCESSIVE ETOH 2017 Substance use: current Substance use type: marijuana Other substance usage details: EDIBLES, SMOKES MARIJUANA Last use: 12/27/20 Living arrangements: alone Occupation/Education: retired Gender identity (if verbalized by the patient): Male Sexual Orientation (if Verbalized by the Patient): Straight or Heterosexual Spiritual care concerns: No Meds Home Medications and Allergies Home Medications Medication Instructions Recorded Confirmed Type omeprazole 20 mg capsule,delayed 40 mg PO BID 08/19/19 08/03/22 History release thiamine HCl (vitamin B1) 250 mg 250 mg PO DAILY 08/19/19 08/03/22 History tablet ciprofloxacin HCl 500 mg tablet 500 mg PO DAILY 08/09/21 08/03/22 History furosemide 40 mg tablet 20 mg PO DAILY 08/09/21 08/03/22 History nadolol 20 mg tablet 20 mg PO DAILY 08/09/21 08/03/22 History spironolactone 100 mg tablet 50 mg PO DAILY 08/09/21 08/03/22 History sildenafil 100 mg tablet 100 mg PO DAILY PRN sexual 02/13/22 08/03/22 Rx activity #8 tabs meloxicam 15 mg tablet 15 mg PO DAILY #90 tabs 03/05/22 08/03/22 Rx gabapentin 600 mg tablet 6
--- NOTE | 2022-09-04 09:15 | PM.IMHP ---
H&P: HPI History of Present Illness Date/Time: 09/04/22 09:15 Chief Complaint: Left Foot Wound Narrative: Patient returns for follow-up [facility] for left plantar hallux ulcer. Concerns regarding new ulcer. Awaiting orthotic modifications by [facility]. Plan for modifications today. Review of Systems Review of Systems: All systems reviewed & are unremarkable except as noted in HPI and below Eyes: Eyes: Reports no additional eye complaints ENT: Reports system reviewed and no additional complaints, except as documented Cardiovascular: Cardiovascular: Reports no additional cardiovascular complaints Respiratory: Respiratory: Reports no additional respiratory complaints Gastrointestinal: Gastrointestinal: Reports no additional gastrointestinal complaints Genitourinary: Genitourinary: Reports no additional male genitourinary complaints Neurologic: Reports system reviewed and no additional complaints, except as documented and Denies confusion Psychiatric: Psychiatric: Reports no additional psychiatric complaints and Denies confusion Endocrine: Endocrine: Reports no additional endocrine complaints Hematologic/Lymphatic: Hematologic/Lymphatic: Reports no additional hematologic/lymphatic complaints Allergic/Immunologic: Allergic/Immunologic: Reports no additional allergic/immunologic complaints [facility] Past Medical History Medical History Abrasion, knee Abscess of foot including toes Alcoholic cirrhosis of liver He has abstained from alcohol for at least 2 years as of July 2020. Cirrhosis Essential hypertension Fall Gastroesophageal reflux disease Hyponatremia Left ankle pain Necrotizing fasciitis of ankle and foot Neuropathy Paroxysmal atrial fibrillation Surgical History Surgical History History of surgery on arm (~2012) ORIF right humerus fracture. History of surgery on wrist History of ventral hernia repair (~11/2013) Subsequent abdominal wall exploration with drainage of a seroma at the same site in 03/2014. Family History Family History Mother Hypertension Family history of diabetes mellitus in first degree relative Diabetes mellitus Father Family history of pancreatic cancer Social History Social History Social History: The patient lives alone in [place]. Retired from [email or web address]. He has a longstanding history of alcohol abuse. He also endorses marijuana use intermittently in a social setting. He designates his daughter Shawna as his surrogate decision maker and wishes to be a full code. Smoking status: Never smoker Alcohol intake: former Drinks per week: 1 Alcohol use details: QUIT EXCESSIVE ETOH 2017 Substance use: current Substance use type: marijuana Other substance usage details: EDIBLES, SMOKES MARIJUANA Last use: 12/27/20 Lack of Transportation: No Lack of Food: Never True Current Housing: I Have Housing Concerned About Future Housing: No Difficulty Paying Gas/Electric Bills: No Difficulty Paying for Meds: No Currently Unemployed: No Education: High School Diploma/GED Difficulty w/ Childcare or Family Care: No Living arrangements: alone Occupation/Education: retired Gender identity (if verbalized by the patient): Male Sexual Orientation (if Verbalized by the Patient): Straight or Heterosexual Spiritual care concerns: No Meds Home Medications and Allergies Home Medications Medication Instructions Recorded Confirmed Type omeprazole 20 mg capsule,delayed 40 mg PO BID 08/19/19 08/31/22 History release thiamine HCl (vitamin B1) 250 mg 250 mg PO DAILY 08/19/19 08/31/22 History tablet ciprofloxacin HCl 500 mg tablet 500 mg PO DAILY 08/09/21 08/31/22 History nadolol 20 mg tablet 20 mg P
--- NOTE | 2022-09-11 09:09 | PM.IMHP ---
H&P: HPI History of Present Illness Date/Time: 09/11/22 09:09 Chief Complaint: Left Foot Wound Narrative: Patient returns for follow-up [facility] for left plantar hallux ulcer. TCC applied by the [facility] wound nurses last week s/p fitting for custom orthotics. Review of Systems Review of Systems: All systems reviewed & are unremarkable except as noted in HPI and below Eyes: Eyes: Reports no additional eye complaints ENT: Reports system reviewed and no additional complaints, except as documented Cardiovascular: Cardiovascular: Reports no additional cardiovascular complaints Respiratory: Respiratory: Reports no additional respiratory complaints Gastrointestinal: Gastrointestinal: Reports no additional gastrointestinal complaints Genitourinary: Genitourinary: Reports no additional male genitourinary complaints Neurologic: Reports system reviewed and no additional complaints, except as documented and Denies confusion Psychiatric: Psychiatric: Reports no additional psychiatric complaints and Denies confusion Endocrine: Endocrine: Reports no additional endocrine complaints Hematologic/Lymphatic: Hematologic/Lymphatic: Reports no additional hematologic/lymphatic complaints Allergic/Immunologic: Allergic/Immunologic: Reports no additional allergic/immunologic complaints [facility] Past Medical History Medical History Abrasion, knee Abscess of foot including toes Alcoholic cirrhosis of liver He has abstained from alcohol for at least 2 years as of July 2020. Cirrhosis Essential hypertension Fall Gastroesophageal reflux disease Hyponatremia Left ankle pain Necrotizing fasciitis of ankle and foot Neuropathy Paroxysmal atrial fibrillation Surgical History Surgical History History of surgery on arm (~2012) ORIF right humerus fracture. History of surgery on wrist History of ventral hernia repair (~11/2013) Subsequent abdominal wall exploration with drainage of a seroma at the same site in 03/2014. Family History Family History Mother Hypertension Family history of diabetes mellitus in first degree relative Diabetes mellitus Father Family history of pancreatic cancer Social History Social History Social History: The patient lives alone in [place]. Retired from [email or web address]. He has a longstanding history of alcohol abuse. He also endorses marijuana use intermittently in a social setting. He designates his daughter Shawna as his surrogate decision maker and wishes to be a full code. Smoking status: Never smoker Alcohol intake: former Drinks per week: 1 Alcohol use details: QUIT EXCESSIVE ETOH 2017 Substance use: current Substance use type: marijuana Other substance usage details: EDIBLES, SMOKES MARIJUANA Last use: 12/27/20 Lack of Transportation: No Lack of Food: Never True Current Housing: I Have Housing Concerned About Future Housing: No Difficulty Paying Gas/Electric Bills: No Difficulty Paying for Meds: No Currently Unemployed: No Education: High School Diploma/GED Difficulty w/ Childcare or Family Care: No Living arrangements: alone Occupation/Education: retired Gender identity (if verbalized by the patient): Male Sexual Orientation (if Verbalized by the Patient): Straight or Heterosexual Spiritual care concerns: No Meds Home Medications and Allergies Home Medications Medication Instructions Recorded Confirmed Type omeprazole 20 mg capsule,delayed 40 mg PO BID 08/19/19 08/31/22 History release thiamine HCl (vitamin B1) 250 mg 250 mg PO DAILY 08/19/19 08/31/22 History tablet ciprofloxacin HCl 500 mg tablet 500 mg PO DAILY 08/09/21 08/31/22 History nadolol 20 mg tablet 20 mg PO DAILY 08/09/21
--- NOTE | 2022-09-18 09:05 | PM.IMHP ---
H&P: HPI History of Present Illness Date/Time: 09/18/22 09:05 Chief Complaint: Left Foot Wound Narrative: Patient returns for follow-up [facility] for left plantar hallux ulcer and left 4th met head ulcer. TCC applied last week. No new concerns today. Review of Systems Review of Systems: All systems reviewed & are unremarkable except as noted in HPI and below Eyes: Eyes: Reports no additional eye complaints ENT: Reports system reviewed and no additional complaints, except as documented Cardiovascular: Cardiovascular: Reports no additional cardiovascular complaints Respiratory: Respiratory: Reports no additional respiratory complaints Gastrointestinal: Gastrointestinal: Reports no additional gastrointestinal complaints Genitourinary: Genitourinary: Reports no additional male genitourinary complaints Neurologic: Reports system reviewed and no additional complaints, except as documented and Denies confusion Psychiatric: Psychiatric: Reports no additional psychiatric complaints and Denies confusion Endocrine: Endocrine: Reports no additional endocrine complaints Hematologic/Lymphatic: Hematologic/Lymphatic: Reports no additional hematologic/lymphatic complaints Allergic/Immunologic: Allergic/Immunologic: Reports no additional allergic/immunologic complaints [facility] Past Medical History Medical History Abrasion, knee Abscess of foot including toes Alcoholic cirrhosis of liver He has abstained from alcohol for at least 2 years as of July 2020. Cirrhosis Essential hypertension Fall Gastroesophageal reflux disease Hyponatremia Left ankle pain Necrotizing fasciitis of ankle and foot Neuropathy Paroxysmal atrial fibrillation Surgical History Surgical History History of surgery on arm (~2012) ORIF right humerus fracture. History of surgery on wrist History of ventral hernia repair (~11/2013) Subsequent abdominal wall exploration with drainage of a seroma at the same site in 03/2014. Family History Family History Mother Hypertension Family history of diabetes mellitus in first degree relative Diabetes mellitus Father Family history of pancreatic cancer Social History Social History Social History: The patient lives alone in [place]. Retired from [employer]. He has a longstanding history of alcohol abuse. He also endorses marijuana use intermittently in a social setting. He designates his daughter Shawna as his surrogate decision maker and wishes to be a full code. Smoking status: Never smoker Alcohol intake: former Drinks per week: 1 Alcohol use details: QUIT EXCESSIVE ETOH 2017 Substance use: current Substance use type: marijuana Other substance usage details: EDIBLES, SMOKES MARIJUANA Last use: 12/27/20 Lack of Transportation: No Lack of Food: Never True Current Housing: I Have Housing Concerned About Future Housing: No Difficulty Paying Gas/Electric Bills: No Difficulty Paying for Meds: No Currently Unemployed: No Education: High School Diploma/GED Difficulty w/ Childcare or Family Care: No Living arrangements: alone Occupation/Education: retired Gender identity (if verbalized by the patient): Male Sexual Orientation (if Verbalized by the Patient): Straight or Heterosexual Spiritual care concerns: No Meds Home Medications and Allergies Home Medications Medication Instructions Recorded Confirmed Type omeprazole 20 mg capsule,delayed 40 mg PO BID 08/19/19 08/31/22 History release thiamine HCl (vitamin B1) 250 mg 250 mg PO DAILY 08/19/19 08/31/22 History tablet ciprofloxacin HCl 500 mg tablet 500 mg PO DAILY 08/09/21 08/31/22 History nadolol 20 mg tablet 20 mg PO DAILY 08/09/21 08/31/22
--- NOTE | 2022-09-25 08:59 | PM.IMHP ---
H&P: HPI History of Present Illness Date/Time: 09/25/22 08:59 Chief Complaint: Left Foot Wound Narrative: Patient returns for follow-up [facility] for left plantar hallux ulcer and left 4th met head ulcer. No new concerns today. Patient has scheduled orthotic appt next Saturday after wound clinic appt to receive his new orthotics. Review of Systems Review of Systems: All systems reviewed & are unremarkable except as noted in HPI and below Eyes: Eyes: Reports no additional eye complaints ENT: Reports system reviewed and no additional complaints, except as documented Cardiovascular: Cardiovascular: Reports no additional cardiovascular complaints Respiratory: Respiratory: Reports no additional respiratory complaints Gastrointestinal: Gastrointestinal: Reports no additional gastrointestinal complaints Genitourinary: Genitourinary: Reports no additional male genitourinary complaints Neurologic: Reports system reviewed and no additional complaints, except as documented and Denies confusion Psychiatric: Psychiatric: Reports no additional psychiatric complaints and Denies confusion Endocrine: Endocrine: Reports no additional endocrine complaints Hematologic/Lymphatic: Hematologic/Lymphatic: Reports no additional hematologic/lymphatic complaints Allergic/Immunologic: Allergic/Immunologic: Reports no additional allergic/immunologic complaints [facility] Past Medical History Medical History Abrasion, knee Abscess of foot including toes Alcoholic cirrhosis of liver He has abstained from alcohol for at least 2 years as of July 2020. Cirrhosis Essential hypertension Fall Gastroesophageal reflux disease Hyponatremia Left ankle pain Necrotizing fasciitis of ankle and foot Neuropathy Paroxysmal atrial fibrillation Surgical History Surgical History History of surgery on arm (~2012) ORIF right humerus fracture. History of surgery on wrist History of ventral hernia repair (~11/2013) Subsequent abdominal wall exploration with drainage of a seroma at the same site in 03/2014. Family History Family History Mother Hypertension Family history of diabetes mellitus in first degree relative Diabetes mellitus Father Family history of pancreatic cancer Social History Social History Social History: The patient lives alone in [place]. Retired from [employer]. He has a longstanding history of alcohol abuse. He also endorses marijuana use intermittently in a social setting. He designates his daughter Shawna as his surrogate decision maker and wishes to be a full code. Smoking status: Never smoker Alcohol intake: former Drinks per week: 1 Alcohol use details: QUIT EXCESSIVE ETOH 2018 Substance use: current Substance use type: marijuana Other substance usage details: EDIBLES, SMOKES MARIJUANA Last use: 12/27/20 Lack of Transportation: No Lack of Food: Never True Current Housing: I Have Housing Concerned About Future Housing: No Difficulty Paying Gas/Electric Bills: No Difficulty Paying for Meds: No Currently Unemployed: No Education: High School Diploma/GED Difficulty w/ Childcare or Family Care: No Living arrangements: alone Occupation/Education: retired Gender identity (if verbalized by the patient): Male Sexual Orientation (if Verbalized by the Patient): Straight or Heterosexual Spiritual care concerns: No Meds Home Medications and Allergies Home Medications Medication Instructions Recorded Confirmed Type omeprazole 20 mg capsule,delayed 40 mg PO BID 08/19/19 08/31/22 History release thiamine HCl (vitamin B1) 250 mg 250 mg PO DAILY 08/19/19 08/31/22 History tablet ciprofloxacin HCl 500 mg tablet 500 mg PO DAILY
== END 2022-10-01 23:59 | disposition home or self-care (01) ==
LOC: ANHWOC 08:37
PROVIDERS: PCP Physician Assistant; Referring Provider Nurse Practitioner Family; Visit Provider Orthopaedic Surgery
DX: L97.529 Non-pressure chronic ulcer of other part of left foot with unspecified severity (principal); S91.302D Unspecified open wound, left foot, subsequent encounter
CPT/HCPCS: 29445; 99212; 99213; G0463; L2116

== ENCOUNTER 2022-12-25 07:24 | Outpatient (RCR) | payer OTHER, SELFPAY ==
[2022-10-02 00:04] VITALS: BMI 26.0
--- NOTE | 2022-10-02 08:42 | PM.IMHP ---
H&P: HPI History of Present Illness Date/Time: 10/02/22 08:42 Chief Complaint: Left Foot Wound Narrative: Patient returns for follow-up [facility] for left plantar hallux ulcer and left 4th met head ulcer. No new concerns today. Patient has scheduled orthotic appt next Saturday after wound clinic appt to receive his new orthotics. Review of Systems Review of Systems: All systems reviewed & are unremarkable except as noted in HPI and below Eyes: Eyes: Reports no additional eye complaints ENT: Reports system reviewed and no additional complaints, except as documented Cardiovascular: Cardiovascular: Reports no additional cardiovascular complaints Respiratory: Respiratory: Reports no additional respiratory complaints Gastrointestinal: Gastrointestinal: Reports no additional gastrointestinal complaints Genitourinary: Genitourinary: Reports no additional male genitourinary complaints Neurologic: Reports system reviewed and no additional complaints, except as documented and Denies confusion Psychiatric: Psychiatric: Reports no additional psychiatric complaints and Denies confusion Endocrine: Endocrine: Reports no additional endocrine complaints Hematologic/Lymphatic: Hematologic/Lymphatic: Reports no additional hematologic/lymphatic complaints Allergic/Immunologic: Allergic/Immunologic: Reports no additional allergic/immunologic complaints [facility] Past Medical History Medical History Abrasion, knee Abscess of foot including toes Alcoholic cirrhosis of liver He has abstained from alcohol for at least 2 years as of July 2020. Cirrhosis Essential hypertension Fall Gastroesophageal reflux disease Hyponatremia Left ankle pain Necrotizing fasciitis of ankle and foot Neuropathy Paroxysmal atrial fibrillation Surgical History Surgical History History of surgery on arm (~2012) ORIF right humerus fracture. History of surgery on wrist History of ventral hernia repair (~11/2013) Subsequent abdominal wall exploration with drainage of a seroma at the same site in 03/2014. Family History Family History Mother Hypertension Family history of diabetes mellitus in first degree relative Diabetes mellitus Father Family history of pancreatic cancer Social History Social History Social History: The patient lives alone in [place]. Retired from [employer]. He has a longstanding history of alcohol abuse. He also endorses marijuana use intermittently in a social setting. He designates his daughter Shawna as his surrogate decision maker and wishes to be a full code. Smoking status: Never smoker Alcohol intake: former Drinks per week: 1 Alcohol use details: QUIT EXCESSIVE ETOH 2018 Substance use: current Substance use type: marijuana Other substance usage details: EDIBLES, SMOKES MARIJUANA Last use: 12/27/20 Lack of Transportation: No Lack of Food: Never True Current Housing: I Have Housing Concerned About Future Housing: No Difficulty Paying Gas/Electric Bills: No Difficulty Paying for Meds: No Currently Unemployed: No Education: High School Diploma/GED Difficulty w/ Childcare or Family Care: No Living arrangements: alone Occupation/Education: retired Gender identity (if verbalized by the patient): Male Sexual Orientation (if Verbalized by the Patient): Straight or Heterosexual Spiritual care concerns: No Meds Home Medications and Allergies Home Medications Medication Instructions Recorded Confirmed Type omeprazole 20 mg capsule,delayed 40 mg PO BID 08/19/19 08/31/22 History release thiamine HCl (vitamin B1) 250 mg 250 mg PO DAILY 08/19/19 08/31/22 History tablet ciprofloxacin HCl 500 mg tablet 500 mg PO DAILY
--- NOTE | 2022-10-09 08:25 | PM.IMHP ---
H&P: HPI History of Present Illness Date/Time: 10/09/22 08:25 Chief Complaint: Left Foot Wound Narrative: Patient returns for follow-up [facility] for left plantar hallux ulcer and left 4th met head ulcer. No new concerns today. Patient had his TCC reapplied last week s/p orthotic fitting last week. Review of Systems Review of Systems: All systems reviewed & are unremarkable except as noted in HPI and below Eyes: Eyes: Reports no additional eye complaints ENT: Reports system reviewed and no additional complaints, except as documented Cardiovascular: Cardiovascular: Reports no additional cardiovascular complaints Respiratory: Respiratory: Reports no additional respiratory complaints Gastrointestinal: Gastrointestinal: Reports no additional gastrointestinal complaints Genitourinary: Genitourinary: Reports no additional male genitourinary complaints Neurologic: Reports system reviewed and no additional complaints, except as documented and Denies confusion Psychiatric: Psychiatric: Reports no additional psychiatric complaints and Denies confusion Endocrine: Endocrine: Reports no additional endocrine complaints Hematologic/Lymphatic: Hematologic/Lymphatic: Reports no additional hematologic/lymphatic complaints Allergic/Immunologic: Allergic/Immunologic: Reports no additional allergic/immunologic complaints [facility] Past Medical History Medical History Abrasion, knee Abscess of foot including toes Alcoholic cirrhosis of liver He has abstained from alcohol for at least 2 years as of July 2020. Cirrhosis Essential hypertension Fall Gastroesophageal reflux disease Hyponatremia Left ankle pain Necrotizing fasciitis of ankle and foot Neuropathy Paroxysmal atrial fibrillation Surgical History Surgical History History of surgery on arm (~2012) ORIF right humerus fracture. History of surgery on wrist History of ventral hernia repair (~11/2013) Subsequent abdominal wall exploration with drainage of a seroma at the same site in 03/2014. Family History Family History Mother Hypertension Family history of diabetes mellitus in first degree relative Diabetes mellitus Father Family history of pancreatic cancer Social History Social History Social History: The patient lives alone in [place]. Retired from [employer]. He has a longstanding history of alcohol abuse. He also endorses marijuana use intermittently in a social setting. He designates his daughter Shawna as his surrogate decision maker and wishes to be a full code. Smoking status: Never smoker Alcohol intake: former Drinks per week: 1 Alcohol use details: QUIT EXCESSIVE ETOH 2017 Substance use: current Substance use type: marijuana Other substance usage details: EDIBLES, SMOKES MARIJUANA Last use: 12/27/20 Lack of Transportation: No Lack of Food: Never True Current Housing: I Have Housing Concerned About Future Housing: No Difficulty Paying Gas/Electric Bills: No Difficulty Paying for Meds: No Currently Unemployed: No Education: High School Diploma/GED Difficulty w/ Childcare or Family Care: No Living arrangements: alone Occupation/Education: retired Gender identity (if verbalized by the patient): Male Sexual Orientation (if Verbalized by the Patient): Straight or Heterosexual Spiritual care concerns: No Meds Home Medications and Allergies Home Medications Medication Instructions Recorded Confirmed Type omeprazole 20 mg capsule,delayed 40 mg PO BID 08/19/19 08/31/22 History release thiamine HCl (vitamin B1) 250 mg 250 mg PO DAILY 08/19/19 08/31/22 History tablet ciprofloxacin HCl 500 mg tablet 500 mg PO DAILY 08/09/21 08/31/22 History malena
--- NOTE | 2022-10-16 09:08 | PM.IMHP ---
H&P: HPI History of Present Illness Date/Time: 10/16/22 09:08 Chief Complaint: Left Foot Wound Narrative: Patient returns for follow-up [facility] for left plantar hallux ulcer and left 4th met head ulcer. No new concerns today. Patient had his TCC reapplied last week. Review of Systems Review of Systems: All systems reviewed & are unremarkable except as noted in HPI and below Eyes: Eyes: Reports no additional eye complaints ENT: Reports system reviewed and no additional complaints, except as documented Cardiovascular: Cardiovascular: Reports no additional cardiovascular complaints Respiratory: Respiratory: Reports no additional respiratory complaints Gastrointestinal: Gastrointestinal: Reports no additional gastrointestinal complaints Genitourinary: Genitourinary: Reports no additional male genitourinary complaints Neurologic: Reports system reviewed and no additional complaints, except as documented and Denies confusion Psychiatric: Psychiatric: Reports no additional psychiatric complaints and Denies confusion Endocrine: Endocrine: Reports no additional endocrine complaints Hematologic/Lymphatic: Hematologic/Lymphatic: Reports no additional hematologic/lymphatic complaints Allergic/Immunologic: Allergic/Immunologic: Reports no additional allergic/immunologic complaints [facility] Past Medical History Medical History Abrasion, knee Abscess of foot including toes Alcoholic cirrhosis of liver He has abstained from alcohol for at least 2 years as of July 2020. Cirrhosis Essential hypertension Fall Gastroesophageal reflux disease Hyponatremia Left ankle pain Necrotizing fasciitis of ankle and foot Neuropathy Paroxysmal atrial fibrillation Surgical History Surgical History History of surgery on arm (~2012) ORIF right humerus fracture. History of surgery on wrist History of ventral hernia repair (~11/2013) Subsequent abdominal wall exploration with drainage of a seroma at the same site in 03/2014. Family History Family History Mother Hypertension Family history of diabetes mellitus in first degree relative Diabetes mellitus Father Family history of pancreatic cancer Social History Social History Social History: The patient lives alone in [place]. Retired from [employer]. He has a longstanding history of alcohol abuse. He also endorses marijuana use intermittently in a social setting. He designates his daughter Shawna as his surrogate decision maker and wishes to be a full code. Smoking status: Never smoker Alcohol intake: former Drinks per week: 1 Alcohol use details: QUIT EXCESSIVE ETOH 2017 Substance use: current Substance use type: marijuana Other substance usage details: EDIBLES, SMOKES MARIJUANA Last use: 12/27/20 Lack of Transportation: No Lack of Food: Never True Current Housing: I Have Housing Concerned About Future Housing: No Difficulty Paying Gas/Electric Bills: No Difficulty Paying for Meds: No Currently Unemployed: No Education: High School Diploma/GED Difficulty w/ Childcare or Family Care: No Living arrangements: alone Occupation/Education: retired Gender identity (if verbalized by the patient): Male Sexual Orientation (if Verbalized by the Patient): Straight or Heterosexual Spiritual care concerns: No Meds Home Medications and Allergies Home Medications Medication Instructions Recorded Confirmed Type omeprazole 20 mg capsule,delayed 40 mg PO BID 08/19/19 08/31/22 History release thiamine HCl (vitamin B1) 250 mg 250 mg PO DAILY 08/19/19 08/31/22 History tablet ciprofloxacin HCl 500 mg tablet 500 mg PO DAILY 08/09/21 08/31/22 History nadolol 20 mg tablet 20 mg PO DAILY
--- NOTE | 2022-10-30 08:35 | PM.IMHP ---
H&P: HPI History of Present Illness Date/Time: 10/30/22 08:35 Chief Complaint: Left Foot Wound Narrative: Patient returns for follow-up [facility] for left plantar hallux ulcer and left 4th met head ulcer. No new concerns today. Patient had his orthotics modified once again by [facility]PERATOR. Review of Systems Review of Systems: All systems reviewed & are unremarkable except as noted in HPI and below Eyes: Eyes: Reports no additional eye complaints ENT: Reports system reviewed and no additional complaints, except as documented Cardiovascular: Cardiovascular: Reports no additional cardiovascular complaints Respiratory: Respiratory: Reports no additional respiratory complaints Gastrointestinal: Gastrointestinal: Reports no additional gastrointestinal complaints Genitourinary: Genitourinary: Reports no additional male genitourinary complaints Neurologic: Reports system reviewed and no additional complaints, except as documented and Denies confusion Psychiatric: Psychiatric: Reports no additional psychiatric complaints and Denies confusion Endocrine: Endocrine: Reports no additional endocrine complaints Hematologic/Lymphatic: Hematologic/Lymphatic: Reports no additional hematologic/lymphatic complaints Allergic/Immunologic: Allergic/Immunologic: Reports no additional allergic/immunologic complaints [facility] Past Medical History Medical History Abrasion, knee Abscess of foot including toes Alcoholic cirrhosis of liver He has abstained from alcohol for at least 2 years as of July 2020. Cirrhosis Essential hypertension Fall Gastroesophageal reflux disease Hyponatremia Left ankle pain Necrotizing fasciitis of ankle and foot Neuropathy Paroxysmal atrial fibrillation Surgical History Surgical History History of surgery on arm (~2012) ORIF right humerus fracture. History of surgery on wrist History of ventral hernia repair (~11/2013) Subsequent abdominal wall exploration with drainage of a seroma at the same site in 03/2014. Family History Family History Mother Hypertension Family history of diabetes mellitus in first degree relative Diabetes mellitus Father Family history of pancreatic cancer Social History Social History Social History: The patient lives alone in [place]. Retired from [employer]. He has a longstanding history of alcohol abuse. He also endorses marijuana use intermittently in a social setting. He designates his daughter Shawna as his surrogate decision maker and wishes to be a full code. Smoking status: Never smoker Alcohol intake: former Drinks per week: 1 Alcohol use details: QUIT EXCESSIVE ETOH 2017 Substance use: current Substance use type: marijuana Other substance usage details: EDIBLES, SMOKES MARIJUANA Last use: 12/27/20 Lack of Transportation: No Lack of Food: Never True Current Housing: I Have Housing Concerned About Future Housing: No Difficulty Paying Gas/Electric Bills: No Difficulty Paying for Meds: No Currently Unemployed: No Education: High School Diploma/GED Difficulty w/ Childcare or Family Care: No Living arrangements: alone Occupation/Education: retired Gender identity (if verbalized by the patient): Male Sexual Orientation (if Verbalized by the Patient): Straight or Heterosexual Spiritual care concerns: No Meds Home Medications and Allergies Home Medications Medication Instructions Recorded Confirmed Type omeprazole 20 mg capsule,delayed 40 mg PO BID 08/19/19 08/31/22 History release thiamine HCl (vitamin B1) 250 mg 250 mg PO DAILY 08/19/19 08/31/22 History tablet ciprofloxacin HCl 500 mg tablet 500 mg PO DAILY 08/09/21 08/31/22 History nadolol 20 mg tablet 20
--- NOTE | 2022-11-27 08:38 | PM.IMHP ---
H&P: [facility] History of Present Illness Date/Time: 11/27/22 08:38 Chief Complaint: Left Hallux Ulcer Review of Systems Review of Systems: All systems reviewed & are unremarkable except as noted in HPI and below Eyes: Eyes: Reports no additional eye complaints ENT: Reports system reviewed and no additional complaints, except as documented Cardiovascular: Cardiovascular: Reports no additional cardiovascular complaints Respiratory: Respiratory: Reports no additional respiratory complaints Gastrointestinal: Gastrointestinal: Reports no additional gastrointestinal complaints Genitourinary: Genitourinary: Reports no additional male genitourinary complaints Neurologic: Reports system reviewed and no additional complaints, except as documented and Denies confusion Psychiatric: Psychiatric: Reports no additional psychiatric complaints and Denies confusion Endocrine: Endocrine: Reports no additional endocrine complaints Hematologic/Lymphatic: Hematologic/Lymphatic: Reports no additional hematologic/lymphatic complaints Allergic/Immunologic: Allergic/Immunologic: Reports no additional allergic/immunologic complaints [facility] Past Medical History Medical History Abrasion, knee Abscess of foot including toes Alcoholic cirrhosis of liver He has abstained from alcohol for at least 2 years as of July 2020. Cirrhosis Essential hypertension Fall Gastroesophageal reflux disease Hyponatremia Left ankle pain Necrotizing fasciitis of ankle and foot Neuropathy Paroxysmal atrial fibrillation Surgical History Surgical History History of surgery on arm (~2012) ORIF right humerus fracture. History of surgery on wrist History of ventral hernia repair (~11/2013) Subsequent abdominal wall exploration with drainage of a seroma at the same site in 03/2014. Family History Family History Mother Hypertension Family history of diabetes mellitus in first degree relative Diabetes mellitus Father Family history of pancreatic cancer Social History Social History Social History: The patient lives alone in [place]. Retired from [employer]. He has a longstanding history of alcohol abuse. He also endorses marijuana use intermittently in a social setting. He designates his daughter Shawna as his surrogate decision maker and wishes to be a full code. Smoking status: Never smoker Alcohol intake: former Drinks per week: 1 Alcohol use details: QUIT EXCESSIVE ETOH 2018 Substance use: current Substance use type: marijuana Other substance usage details: EDIBLES, SMOKES MARIJUANA Last use: 12/27/20 Lack of Transportation: No Lack of Food: Never True Current Housing: I Have Housing Concerned About Future Housing: No Difficulty Paying Gas/Electric Bills: No Difficulty Paying for Meds: No Currently Unemployed: No Education: High School Diploma/GED Difficulty w/ Childcare or Family Care: No Living arrangements: alone Occupation/Education: retired Gender identity (if verbalized by the patient): Male Sexual Orientation (if Verbalized by the Patient): Straight or Heterosexual Spiritual care concerns: No Meds Home Medications and Allergies Home Medications Medication Instructions Recorded Confirmed Type omeprazole 20 mg capsule,delayed 40 mg PO BID 08/19/19 08/31/22 History release thiamine HCl (vitamin B1) 250 mg 250 mg PO DAILY 08/19/19 08/31/22 History tablet ciprofloxacin HCl 500 mg tablet 500 mg PO DAILY 08/09/21 08/31/22 History nadolol 20 mg tablet 20 mg PO DAILY 08/09/21 08/31/22 History sildenafil 100 mg tablet 100 mg PO DAILY PRN sexual 02/13/22 08/31/22 Rx activity #8 tabs meloxicam 15 mg tablet 15 mg PO DAILY #90 tabs 08/28/22 08/31/22 Rx furosemide 40 mg
--- NOTE | 2022-12-18 08:41 | PM.IMHP ---
H&P: HPI History of Present Illness Date/Time: 12/18/22 08:41 Chief Complaint: Left Hallux Ulcer Narrative: 62 year old male returns to the [facility] wound clinic today for reevaluation due to recurrent left hallux ulcer. He was last seen on 11/27/22 at which point his wound was closed and he transitioned to custom orthotics/depth shoes. He reports an opening of the wound over the last couple of weeks. No fever, chills, night sweats, nausea, vomiting or diarrhea. Review of Systems Review of Systems: All systems reviewed & are unremarkable except as noted in HPI and below Eyes: Eyes: Reports no additional eye complaints ENT: Reports system reviewed and no additional complaints, except as documented Cardiovascular: Cardiovascular: Reports no additional cardiovascular complaints Respiratory: Respiratory: Reports no additional respiratory complaints Gastrointestinal: Gastrointestinal: Reports no additional gastrointestinal complaints Genitourinary: Genitourinary: Reports no additional male genitourinary complaints Neurologic: Reports system reviewed and no additional complaints, except as documented and Denies confusion Psychiatric: Psychiatric: Reports no additional psychiatric complaints and Denies confusion Endocrine: Endocrine: Reports no additional endocrine complaints Hematologic/Lymphatic: Hematologic/Lymphatic: Reports no additional hematologic/lymphatic complaints Allergic/Immunologic: Allergic/Immunologic: Reports no additional allergic/immunologic complaints [facility] Past Medical History Medical History Abrasion, knee Abscess of foot including toes Alcoholic cirrhosis of liver He has abstained from alcohol for at least 2 years as of July 2020. Cirrhosis Essential hypertension Fall Gastroesophageal reflux disease Hyponatremia Left ankle pain Necrotizing fasciitis of ankle and foot Neuropathy Paroxysmal atrial fibrillation Surgical History Surgical History History of surgery on arm (~2012) ORIF right humerus fracture. History of surgery on wrist History of ventral hernia repair (~11/2013) Subsequent abdominal wall exploration with drainage of a seroma at the same site in 03/2014. Family History Family History Mother Hypertension Family history of diabetes mellitus in first degree relative Diabetes mellitus Father Family history of pancreatic cancer Social History Social History Social History: The patient lives alone in [place]. Retired from [employer]. He has a longstanding history of alcohol abuse. He also endorses marijuana use intermittently in a social setting. He designates his daughter Shawna as his surrogate decision maker and wishes to be a full code. Smoking status: Never smoker Alcohol intake: former Drinks per week: 1 Alcohol use details: QUIT EXCESSIVE ETOH 2017 Substance use: current Substance use type: marijuana Other substance usage details: EDIBLES, SMOKES MARIJUANA Last use: 12/27/20 Lack of Transportation: No Lack of Food: Never True Current Housing: I Have Housing Concerned About Future Housing: No Difficulty Paying Gas/Electric Bills: No Difficulty Paying for Meds: No Currently Unemployed: No Education: High School Diploma/GED Difficulty w/ Childcare or Family Care: No Living arrangements: alone Occupation/Education: retired Gender identity (if verbalized by the patient): Male Sexual Orientation (if Verbalized by the Patient): Straight or Heterosexual Spiritual care concerns: No Meds Home Medications and Allergies Home Medications Medication Instructions Recorded Confirmed Type omeprazole 20 mg capsule,delayed 40 mg PO BID 08/19/19 08/31/22 History release thiamine HCl (vitamin B1) 250 mg 250 mg
--- NOTE | 2022-12-25 09:41 | PM.IMHP ---
H&P: HPI History of Present Illness Date/Time: 12/25/22 09:41 Chief Complaint: Left Hallux Ulcer Narrative: 62 year old male returns to the [facility] wound clinic today for reevaluation due to recurrent left hallux ulcer. The patient was seen last week and started on daily dressing changes once again with silver gel and silver foam. He was sent to the outpatient orthopedic clinic where he had radiographs obtained of the left lower extremity foot and ankle. Radiographs at that time reveal no evidence of fracture, dislocation or acute abnormalities. Degenerative changes at the ankle noted as well as internal rotation of the distal phalanx of the hallux which could be causing pressure on the medial aspect of the hallux. Patient reports increasing lower extremity edema as well as distention of his abdomen. He has a history of liver failure. He has had ascites in the past and had his abdomen tapped. He also notes intermittent dizziness. Review of Systems Review of Systems: All systems reviewed & are unremarkable except as noted in HPI and below PMFSH Past Medical History Medical History (Updated 12/25/22 @ 12:59 by JAVAN Shah) Abrasion, knee Abscess of foot including toes Alcoholic cirrhosis of liver He has abstained from alcohol for at least 2 years as of July 2020. Cirrhosis Essential hypertension Fall Gastroesophageal reflux disease Hyponatremia Left ankle pain Necrotizing fasciitis of ankle and foot Neuropathy Paroxysmal atrial fibrillation Surgical History Surgical History History of surgery on arm (~2012) ORIF right humerus fracture. History of surgery on wrist History of ventral hernia repair (~11/2013) Subsequent abdominal wall exploration with drainage of a seroma at the same site in 03/2014. Family History Family History Mother Hypertension Family history of diabetes mellitus in first degree relative Diabetes mellitus Father Family history of pancreatic cancer Social History Social History Social History: The patient lives alone in [place]. Retired from [employer]. He has a longstanding history of alcohol abuse. He also endorses marijuana use intermittently in a social setting. He designates his daughter Shawna as his surrogate decision maker and wishes to be a full code. Smoking status: Never smoker Alcohol intake: former Drinks per week: 1 Alcohol use details: QUIT EXCESSIVE ETOH 2017 Substance use: current Substance use type: marijuana Other substance usage details: EDIBLES, SMOKES MARIJUANA Last use: 12/27/20 Lack of Transportation: No Lack of Food: Never True Current Housing: I Have Housing Concerned About Future Housing: No Difficulty Paying Gas/Electric Bills: No Difficulty Paying for Meds: No Currently Unemployed: No Education: High School Diploma/GED Difficulty w/ Childcare or Family Care: No Living arrangements: alone Occupation/Education: retired Gender identity (if verbalized by the patient): Male Sexual Orientation (if Verbalized by the Patient): Straight or Heterosexual Spiritual care concerns: No Meds Home Medications and Allergies Home Medications Medication Instructions Recorded Confirmed Type omeprazole 20 mg capsule,delayed 40 mg PO BID 08/19/19 08/31/22 History release thiamine HCl (vitamin B1) 250 mg 250 mg PO DAILY 08/19/19 08/31/22 History tablet ciprofloxacin HCl 500 mg tablet 500 mg PO DAILY 08/09/21 08/31/22 History nadolol 20 mg tablet 20 mg PO DAILY 08/09/21 08/31/22 History sildenafil 100 mg tablet 100 mg PO DAILY PRN sexual 02/13/22 08/31/22 Rx activity #8 tabs meloxicam 15 mg tablet 15 mg PO DAILY #90 tabs 08/28/22 08/31/22 Rx furosemide 40 mg tablet 40 mg PO DAILY 08/29/22 08/31/22 History spironolactone 100 mg tablet 100 mg
== END 2022-12-31 23:59 | disposition home or self-care (01) ==
LOC: ANHWOC 07:24
PROVIDERS: PCP Physician Assistant; Referring Provider Nurse Practitioner Family; Visit Provider Nurse Practitioner Family
DX: L97.529 Non-pressure chronic ulcer of other part of left foot with unspecified severity (principal); S91.302D Unspecified open wound, left foot, subsequent encounter
CPT/HCPCS: 11042; 29445; 99213; 99214; G0463; L2116

== ENCOUNTER 2022-12-26 13:37 | Outpatient (CLI) | payer OTHER, SELFPAY ==
--- NOTE | ~2022-12-26 | US_ITS ---
Duplex Sonography of the left extremity: Indication: Swelling, thrombosis Findings: Sagittal and transverse B-mode images as well as color-flow imaging were performed on the l eft femoral and popliteal veins. B-mode examination was done without and with compression in the tra nsverse plane. There is good visualization of the common femoral, proximal profunda femoral, superfi cial femoral, greater saphenous, and popliteal veins. Normal flow was seen on color-flow imaging. No rmal compressibility was demonstrated. Left posterior tibial and peroneal veins are also patent. Impression: No evidence of deep vein thrombosis involving the left lower extremity. Reviewed, dictated and finalized at location M. Impression: No evidence of deep vein thrombosis involving the left lower extremity.
== END 2022-12-26 13:38 | disposition home or self-care (01) ==
PROVIDERS: PCP Physician Assistant; Visit Provider Nurse Practitioner Family
DX: M79.89 Other specified soft tissue disorders (principal); M79.662 Pain in left lower leg
CPT/HCPCS: 93971

== ENCOUNTER 2023-01-30 08:53 | Outpatient (CLI) | payer OTHER, SELFPAY ==
--- NOTE | 2023-01-30 09:03 | ECG_ITS ---
Measurements Intervals [place] Rate: 64 P: 23 DC: 185 QRS: -17 QRSD: 105 T: 11 QT: 433 QTc: 450 Interpretive Statements SINUS RHYTHM NORMAL ECG COMPARED TO ECG 12/07/2021 15:27:58 SINUS RHYTHM NOW PRESENT Electronically Signed On 01-30-2023 9:49:51 CDT by Jorge Limon D.O.
[2023-01-30 09:30] LABS: Anion Gap 4 mmol/L (8-16); Blood Urea Nitrogen 14 mg/dL (9-20); Calcium 8.7 mg/dL (8.4-10.2); Carbon Dioxide 31 mmol/L (22-30); Chloride 102 mmol/L (98-107); Estimated Glomerular Filt Rate 48; Glucose 104 mg/dL (65-110); Potassium 4.3 mmol/L (3.4-5.0); Sodium 137 mmol/L (137-145)
[2023-01-30 09:49] LABS: INR 1.2
[2023-01-30 09:50] LABS: Partial Thromboplastin Time 36.1 SECONDS (22.3-36.8)
== END 2023-01-30 08:54 | disposition home or self-care (01) ==
PROVIDERS: Anesthesiology; PCP Physician Assistant; Visit Provider Orthopaedic Surgery
DX: K70.30 Alcoholic cirrhosis of liver without ascites (principal); I10 Essential (primary) hypertension; Z01.818 Encounter for other preprocedural examination
CPT/HCPCS: 36415; 80048; 85610; 85730; 93005

== ENCOUNTER 2023-02-04 00:49 | Day surgery (SDC) | payer OTHER, SELFPAY ==
[2023-01-25 15:11] VITALS: BMI 28.9
--- NOTE | 2023-01-25 15:21 | PC.NURSE ---
Report to the Outpatient Waiting Room, entrance under the green pavilion located off [facility], at time 6:00 on date 02/04/23. Planned Procedure Time: 7:30. Time changes happen often and if your time is changed the preop area will call you the afternoon before. - You and your visitor will be asked to self-screen and do not enter if you have any COVID symptoms. - A mask is optional within the hospital at this time. Patients may have clear liquids (water, carbonated beverages, clear teas, apple juice) until 3 hours prior to surgery (4:30) with a maximum of 20 ounces. - No food from midnight until time of surgery Take the following medications with a SIP of water the morning of surgery: CIPRO, GABAPENTIN, NADOLOL DO NOT STOP ANY OF YOUR OTHER PRESCRIPTION MEDICATIONS PRIOR TO SURGERY ?EXCEPT THE FOLLOWING Medications to discontinue per physician: VITAMINS/SUPPLEMENTS Date to take last dose: 01/31/23 Please no make-up, nail irish, hairspray, perfume, deodorant, or body powder the day of surgery. No jewelry (including any body piercings) or valuables the day of surgery, leave them at home. Please take a shower or bath the night before, or the morning of, surgery with an antibacterial soap. Wear comfortable, loose fitting clothing. - Jewelry must be removed prior to entering the operating room. Rings and piercings that are not removed may be cut off. - The hospital will not accept responsibility for valuables. - Please leave all valuables, including medications, at home the day of surgery. If you are going home after surgery, a licensed goat driver must drive you home. - NO public transportation without another adult if you receive anesthesia. - We recommend that an adult stay with you for 24 hours following discharge. - We also recommend that you do not drive, make important decision, drink alcoholic beverages, or take any drugs that were not prescribed by your health care provider for at least 24 hours after your discharge time. Follow any additional instructions given to you from your surgeon. If you or anyone in your household have experienced Covid symptoms in the past week, please notify your surgeon or the nurse liaison at the phone number below for possible testing. Telephone instructions given to PT - OWEN HAYNES and asked if any additional questions and then verbalized understanding. Patient advised to call surgeon office or pre surgery nurse liaison [phone] if any additional questions.
[2023-02-04] VITALS (9 sets, daily range): BP systolic 98–130; BP diastolic 58–81; PULSE 59–80; RESP 10–16; TEMP 36.2–36.3; O2SAT 94–100
--- NOTE | ~2023-02-04 | XR_ITS ---
EXAMINATION: XR surgery orthopedic DATE: 02/04/2023 08:58 INDICATION: Left hallux valgus correction TECHNIQUE: 3 fluoroscopic images of the forefoot were obtained during procedure performed by Dr. Devon greene. Radiologist was not present for the imaging or procedure. The amount of fluoroscopy time used du ring this procedure was 0.2 minutes. COMPARISON: 12/18/2022 FINDINGS: Bunionectomy at the medial head of the first metatarsal. Realignment osteotomy at the base of the fir st proximal phalanx which is fixed with a compression screw and medial sided staple. There is reducti on in the degree of prior hallux valgus. Small amount of expected soft tissue gas at the operative be d. 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 Mild osteoarthritis at the visualized metatarsophalangeal and interphalangeal joints. IMPRESSION: 1. Fluoroscopy utilized during bunionectomy and realignment osteotomy at the base of the first proxim al phalanx. See procedure note for further detail. Reviewed, dictated and finalized at location A. IMPRESSION: 1. Fluoroscopy utilized during bunionectomy and realignment osteotomy at the ba se of the first proximal phalanx. See procedure note for further detail.
[2023-02-04] MEDS: LACTATED RINGERS 1,000 ML 30 ML IV CONT (06:39)
[2023-02-04] MEDS: ACETAMINOPHEN 500 MG TABLET 1000 MG PO (06:40)
[2023-02-04] MEDS: KETOROLAC 15 MG/ML VIAL (*BKC) IV PUSH (06:43)
--- NOTE | 2023-02-04 07:07 | WPDANESEPPF ---
Anes - Initial Pre Proc Eval Procedure: Operation Date: 02/04/23 07:30 Proposed Procedures p Left Hallux Valgus Correction, Excision Metatarsal Exostosis, Debridement of Foot Ulcer - Blair Negron MD Date/Time: 02/04/23 07:07 Surgeon: Blair Negron MD Pre Op Diagnosis: lft hallux valgus, diabetic foot ulcer, exostosis Patient Data Age: 62 Gender: M Height: 1.88 m Weight: 104.4 kg Last Vital Signs Temp 97.3 F L 02/04/23 06:02 Pulse 66 02/04/23 06:02 Resp 16 02/04/23 06:02 BP 98/61 L 02/04/23 06:02 Pulse Ox 98 02/04/23 06:02 O2 Del Method Room Air 02/04/23 06:02 Allergies Allergy/AdvReac Type Severity Reaction Status Date / Time No Known Allergies Allergy Unknown Verified 02/04/23 06:23 Home Medications Medication Instructions Recorded Confirmed Type omeprazole 20 mg capsule,delayed 40 mg PO BID 08/19/19 02/04/23 History release thiamine HCl (vitamin B1) 250 mg 250 mg PO DAILY 08/19/19 02/04/23 History tablet ciprofloxacin HCl 500 mg tablet 500 mg PO DAILY 08/09/21 02/04/23 History nadolol 20 mg tablet 20 mg PO DAILY 08/09/21 02/04/23 History furosemide 40 mg tablet 40 mg PO DAILY 08/29/22 02/04/23 History spironolactone 100 mg tablet 100 mg PO DAILY 08/29/22 02/04/23 History gabapentin 600 mg tablet 600 mg PO TID #270 tabs 10/02/22 02/04/23 Rx cyclobenzaprine 5 mg tablet 5 mg PO QHS PRN Muscle Spasm #30 12/28/22 02/04/23 Rx tabs Laboratory Tests 02/04/23 06:16 PT Pending INR Pending Patient hx anesthesia problems: none Family hx anesthesia problems: none Results Review: All pre-operative results and documents have been reviewed as part of the pre-operative evaluation. [facility] Past Medical History Medical History (Updated 01/15/23 @ 13:24 by Blair Negron MD) Abrasion, knee Abscess of foot including toes Acquired hallux valgus of left foot Alcoholic cirrhosis of liver He has abstained from alcohol for at least 2 years as of July 2020. Cirrhosis Essential hypertension Exostosis of left foot Fall Gastroesophageal reflux disease Hyponatremia Left ankle pain Left leg swelling Necrotizing fasciitis of ankle and foot Neuropathy Pain in left lower leg Paroxysmal atrial fibrillation Surgical History Surgical History History of surgery on arm (~2012) ORIF right humerus fracture. History of surgery on wrist History of ventral hernia repair (~11/2013) Subsequent abdominal wall exploration with drainage of a seroma at the same site in 03/2014. Family History Family History Mother Hypertension Family history of diabetes mellitus in first degree relative Diabetes mellitus Father Family history of pancreatic cancer Social History Social History Social History: The patient lives alone in [place]. Retired from [employer]. He has a longstanding history of alcohol abuse. He also endorses marijuana use intermittently in a social setting. He designates his daughter Shawna as his surrogate decision maker and wishes to be a full code. Smoking status: Never smoker Alcohol intake: former Drinks per week: 1 Alcohol use details: NO ALCOHOL IN 2 MONTHS Substance use: current Substance use type: marijuana Other substance usage details: EDIBLES, SMOKES MARIJUANA Last use: 12/27/20 Lack of Transportation: No Lack of Food: Never True Current Housing: I Have Housing Concerned About Future Housing: No Difficulty Paying Gas/Electric Bills: No Difficulty Paying for Meds: No Currently Unemployed: No Education: High School Diploma/GED Difficulty w/ Childcare or Family Care: No Living arrangements: alone Occupation/Education: retired Gender identity (if verbalized by the patient): Male Sexual Orientation (if Verbalized by the Elisa
--- NOTE | 2023-02-04 07:15 | WPDHPUPDATE1 ---
History and Physical Update Update Date/Time: 02/04/23 07:15 History and Physical has been reviewed, including an updated exam of the patient. There are NO changes in the patient's condition. Risks, benefits, and alternatives have been discussed and questions answered. Patient agrees to proceed with procedure.
--- NOTE | 2023-02-04 07:22 | PM.IMHP ---
H&P: HPI History of Present Illness Date/Time: 02/04/23 07:22 Chief Complaint: Left foot hallux valgus, left hallux ulcer left foot exostosis. Narrative: 62-year-old gentleman with peripheral neuropathy persistent left hallux ulcer with deformity. Unrelieved with wound care. Presents for operative treatment. Review of Systems Review of Systems: All systems reviewed & are unremarkable except as noted in HPI and below Eyes: Eyes: Reports no additional eye complaints ENT: Reports system reviewed and no additional complaints, except as documented Cardiovascular: Cardiovascular: Reports no additional cardiovascular complaints Respiratory: Respiratory: Reports no additional respiratory complaints Gastrointestinal: Gastrointestinal: Reports no additional gastrointestinal complaints Genitourinary: Genitourinary: Reports no additional male genitourinary complaints Neurologic: Reports system reviewed and no additional complaints, except as documented and Denies confusion Psychiatric: Psychiatric: Reports no additional psychiatric complaints and Denies confusion Endocrine: Endocrine: Reports no additional endocrine complaints Hematologic/Lymphatic: Hematologic/Lymphatic: Reports no additional hematologic/lymphatic complaints Allergic/Immunologic: Allergic/Immunologic: Reports no additional allergic/immunologic complaints [facility] Past Medical History Medical History Abrasion, knee Abscess of foot including toes Acquired hallux valgus of left foot Alcoholic cirrhosis of liver He has abstained from alcohol for at least 2 years as of July 2020. Cirrhosis Essential hypertension Exostosis of left foot Fall Gastroesophageal reflux disease Hyponatremia Left ankle pain Left leg swelling Necrotizing fasciitis of ankle and foot Neuropathy Pain in left lower leg Paroxysmal atrial fibrillation Surgical History Surgical History History of surgery on arm (~2012) ORIF right humerus fracture. History of surgery on wrist History of ventral hernia repair (~11/2013) Subsequent abdominal wall exploration with drainage of a seroma at the same site in 03/2014. Family History Family History Mother Hypertension Family history of diabetes mellitus in first degree relative Diabetes mellitus Father Family history of pancreatic cancer Social History Social History Social History: The patient lives alone in [place]. Retired from [employer]. He has a longstanding history of alcohol abuse. He also endorses marijuana use intermittently in a social setting. He designates his daughter Shawna as his surrogate decision maker and wishes to be a full code. Smoking status: Never smoker Alcohol intake: former Drinks per week: 1 Alcohol use details: NO ALCOHOL IN 2 MONTHS Substance use: current Substance use type: marijuana Other substance usage details: EDIBLES, SMOKES MARIJUANA Last use: 12/27/20 Lack of Transportation: No Lack of Food: Never True Current Housing: I Have Housing Concerned About Future Housing: No Difficulty Paying Gas/Electric Bills: No Difficulty Paying for Meds: No Currently Unemployed: No Education: High School Diploma/GED Difficulty w/ Childcare or Family Care: No Living arrangements: alone Occupation/Education: retired Gender identity (if verbalized by the patient): Male Sexual Orientation (if Verbalized by the Patient): Straight or Heterosexual Spiritual care concerns: No Meds Home Medications and Allergies Home Medications Medication Instructions Recorded Confirmed Type omeprazole 20 mg capsule,delayed 40 mg PO BID 08/19/19 02/04/23 History release thiamine HCl (vitamin B1) 250 mg 250 mg PO DAILY 08/19/19 02/04/23 History tablet
[2023-02-04 07:25] LABS: INR 1.2; Prothrombin Time 16.1 Seconds (11.1-14.7)
[2023-02-04] MEDS: ceFAZolin 2 GM/D5W 50 ML 2 GM/50 ML BAG IVPB (07:25)
[2023-02-04] MEDS: BUPivacaine HCL 0.5% 10 ML AMP 20 ML INFILTRATE (07:52)
[2023-02-04] MEDS: fentaNYL CITRATE INJ (*CRX) 100 MCG/2 ML VIAL 25 MCG IV PUSH ×2 (09:24→09:27)
--- NOTE | 2023-02-04 09:24 | W.PM.PROC2 ---
Procedure Note - Detailed Date of Procedure 02/04/23 Pre-op Diagnosis lft hallux valgus, neuropathic foot ulcer, exostosis Post-op Diagnosis Same Procedure Performed Left hallux valgus correction with proximal phalangeal osteotomy, excision left 4th metatarsal exostosis, excisional debridement left foot ulcer Surgeon Blair Negron MD Mechanical Manufacturing Technician 1st assistant press operator offset Anesthesia General Indications 62-year-old with peripheral neuropathy previous history left foot infections, osteomyelitis and amputation of toes. Has a nonhealing ulcer of the hallux with deformity. Also plantar callus 4th metatarsal head. At risk for infection and further loss of tissue. Presents for operative treatment. Findings 3 cm ulcer plantar hallux to the muscle layer. Adequate blood flow to the tissues. Description of Procedure After informed consent was given, the operative extremity was marked in the preoperative holding area. The patient received intravenous antibiotics. The patient was brought to the operating room where they underwent a general anesthetic by the anesthesia team. The patient was positioned supine on the operating room table. A time-out was performed confirming the patient, site of the surgery, and the plan for surgery. The left lower extremity was then prepped and draped in the usual sterile surgical fashion using Betadine skin solution. Foot and ankle were exsanguinated and a calf tourniquet was inflated to 225 mmHg pressure. A longitudinal incision was then made along the medial border of the 1st ray centered over the medial eminence with a #15 blade knife. Hemostasis was controlled with electric cautery. The dorsal and plantar sensory nerves were identified and retracted bluntly. A medial capsulotomy was then performed. This was reflected off the medial eminence. The joint was inspected for evaluation of degenerative changes. A lateral release was then performed through the joint with a #15 blade knife. The medial eminence was then resected with a sagittal saw in line with the medial border of the foot. The wound was then thoroughly irrigated with antibiotic solution. The capsule was repaired through a drill hole in the distal 1st metatarsal with 0 Vicryl interrupted suture. The dorsal limb of the capsule was repaired with 00 Vicryl interrupted suture. Subcutaneous tissue was repaired with 000 Monocryl interrupted suture and the skin approximated with 0000 nylon running suture. Local anesthetic with 0.5% Marcaine plain was injected in the soft tissue. Clinically and fluoroscopically there was still hallux valgus present. Proximal phalanx osteotomy was indicated. Medial incision made along the proximal phalanx with 15 blade knife. Hemostasis controlled electrocautery. Dissection down to the medial aspect of the proximal phalanx. Retractors placed. Sagittal saw used to make a medial closing wedge osteotomy transversely across the proximal phalanx. We also perform rotation through the osteotomy to correct pronation. Image intensification confirmed placement of the osteotomy. Fixation was achieved with the Arthrex 11 millimeter x 10 millimeter staple. cannulated 2.5 mm headless screw used for additional fixation. Good stability and fixation were noted. Image intensification confirmed final alignment of the osteotomy and placement of the hardware. Overall alignment of the 1st ray was verified. Wound was thoroughly irrigated with solution. Soft tissue closed with 000 Monocryl interrupted suture. Skin approximately 4 O nylon running suture. 4Th metatarsal exostosis then addressed. Dorsal longitudinal incision made over the 4th metatarsophalangeal joint 15 blade knife. Hemostasis controlled electrocautery. Dorsal capsulotomy performed. Soft tissue release of the metatarsal head. Rongeur then used to remove the plantar exostosis from the 4th metatarsal head. Wound irrigated. Joint reduced and capsule closed with 3-0 Monocryl interrupted suture. Ski
[2023-02-04] MEDS: oxyCODONE HCL (*CRX) 5 MG TAB IR PO (10:05)
== END 2023-02-04 11:10 | disposition home or self-care (01) ==
PROVIDERS: Anesthesiology; PCP Physician Assistant; Visit Provider Orthopaedic Surgery
PROC: (CPT 28299; principal; 2023-02-04 07:30)
DX: M20.12 Hallux valgus (acquired), left foot (principal); L97.529 Non-pressure chronic ulcer of other part of left foot with unspecified severity; M89.8X7 Other specified disorders of bone, ankle and foot; G62.9 Polyneuropathy, unspecified; I10 Essential (primary) hypertension; I48.0 Paroxysmal atrial fibrillation; K70.30 Alcoholic cirrhosis of liver without ascites; K21.9 Gastro-esophageal reflux disease without esophagitis; F12.90 Cannabis use, unspecified, uncomplicated; E80.6 Other disorders of bilirubin metabolism
CPT/HCPCS: 28310; 28104; 11043; 36415; 80048; 85610; 85730; 93005; 99199; A9270; J0690; J1100; J1170; J1885; J2250; J2371; J2405; J2704; J3010; J7120

== ENCOUNTER 2023-02-15 08:24 | Inpatient (IN) | payer OTHER, SELFPAY ==
[2023-02-15] VITALS (25 sets, daily range): BP systolic 103–130; BP diastolic 62–89; PULSE 60–81; RESP 12–22; TEMP 36.2–36.9; O2SAT 95–100; BMI 27.7
--- NOTE | ~2023-02-15 | XR_ITS ---
EXAMINATION: XR foot LT min 3V DATE: 02/15/2023 09:37 INDICATION: Left foot pain. TECHNIQUE: 4 views of left foot were obtained. COMPARISON: Left foot radiographs 12/18/2022, 05/29/22, 12/07/21 FINDINGS: There is amputation of the second and third rays at the metatarsophalangeal joints. There a re chronic erosions of the heads of the second and third metatarsals, stable from 12/07/21. There are changes of resection of a portion of the head of fourth metatarsal. Hallux valgus is noted. There are changes of resection of medial aspect of head of first metatarsal. There is an osteotomy of first pr oximal phalanx with fixation with staple and screw. There is mild to moderate midfoot osteoarthritis. There is mild osteoarthritis of some of the interphalangeal joints. There are enthesophytes at the p osterior and plantar aspects of calcaneal tuberosity. There is a suture anchor in cuboid. There is so ft tissue swelling of the great toe. IMPRESSION: 1. No specific evidence of acute osteomyelitis. Reviewed, dictated and finalized at location A.
--- NOTE | ~2023-02-15 | XR_ITS ---
EXAMINATION: XR tibia fibula LT 2V DATE: 02/15/2023 09:37 INDICATION: Left lower leg pain. TECHNIQUE: 2 views of left tibia and fibula on 4 radiographs were obtained. COMPARISON: None. FINDINGS: Bone alignment is normal. No fracture. There is mild left knee osteoarthritis. No knee join t effusion. There is moderate midfoot osteoarthritis. There is ankle soft tissue swelling. IMPRESSION: 1. Polyarticular osteoarthritis. Reviewed, dictated and finalized at location A.
--- NOTE | ~2023-02-15 | XR_ITS ---
EXAMINATION: XR surgery orthopedic DATE: 02/18/2023 11:17 INDICATION: Left foot transmetatarsal amputation TECHNIQUE: 3 fluoroscopic images of the left forefoot were obtained during procedure performed by Dr. Negron. Radiologist was not present for the imaging or procedure. The amount of fluoroscopy time us ed during this procedure was 0.1 minutes. COMPARISON: 02/15/2023 FINDINGS: Transmetatarsal osteotomies of the first-fifth metatarsal at the level of the distal diaphyses. No fr actures identified of the remaining bones. Mild osteoarthritis at the tarsal metatarsal joints. IMPRESSION: 1. Fluoroscopy utilized during distal transmetatarsal amputations of the left first second fifth meta tarsals. See procedure note for further detail. Reviewed, dictated and finalized at location A. IMPRESSION: 1. Fluoroscopy utilized during distal transmetatarsal amputations of the left f irst second fifth metatarsals. See procedure note for further detail.
--- NOTE | 2023-02-15 09:46 | ED.GENADULT ---
HPI - General Adult General Chief complaint: Extremity Injury, Lower Stated complaint: Post surgery left foot pain and drainage Time Seen by Provider: 02/15/23 08:58 Source: patient Mode of arrival: ambulatory Limitations: no limitations History of Present Illness HPI narrative: This is a 62-year-old male who presents to the ED with chief complaint of left foot pain and drainage x5 days. He is postop day 11 from left hallux valgus surgery with Dr. Negron. Patient reports that for the past few days the drainage has increased and pain has increased. Pain is not controlled by oxycodone. He reports he has some pain in the foot and ankle as well. Denies fevers, chills, nausea, vomiting. He states that he has been doing his dressing changes daily. Related Data Home Medications Medication Instructions Recorded Confirmed omeprazole 20 mg capsule,delayed 40 mg PO BID 08/19/19 02/15/23 release thiamine HCl (vitamin B1) 250 mg 250 mg PO DAILY 08/19/19 02/15/23 tablet ciprofloxacin HCl 500 mg tablet 500 mg PO 1700 08/09/21 02/15/23 nadolol 20 mg tablet 40 mg PO DAILY 08/09/21 02/15/23 furosemide 40 mg tablet 40 mg PO DAILY 08/29/22 02/15/23 spironolactone 100 mg tablet 100 mg PO DAILY 08/29/22 02/15/23 Allergies Allergy/AdvReac Type Severity Reaction Status Date / Time No Known Allergies Allergy Unknown Verified 02/15/23 09:00 [facility] Past Medical History Medical History Abrasion, knee Abscess of foot including toes Acquired hallux valgus of left foot Alcoholic cirrhosis of liver He has abstained from alcohol for at least 2 years as of July 2020. Cirrhosis Essential hypertension Exostosis of left foot Fall Gastroesophageal reflux disease Hyponatremia Left ankle pain Left leg swelling Necrotizing fasciitis of ankle and foot Neuropathy Pain in left lower leg Paroxysmal atrial fibrillation Surgical History Surgical History History of surgery on arm (~2012) ORIF right humerus fracture. History of surgery on wrist History of ventral hernia repair (~11/2013) Subsequent abdominal wall exploration with drainage of a seroma at the same site in 03/2014. Family History Family History Mother Hypertension Family history of diabetes mellitus in first degree relative Diabetes mellitus Father Family history of pancreatic cancer Social History Social History Social History: The patient lives alone in [place]. Retired from [employer]. He has a longstanding history of alcohol abuse. He also endorses marijuana use intermittently in a social setting. He designates his daughter Shawna as his surrogate decision maker and wishes to be a full code. Smoking status: Never smoker Alcohol intake: current Drinks per week: 5 Alcohol use details: NO ALCOHOL IN 2 MONTHS Substance use: current Substance use type: marijuana Other substance usage details: EDIBLES, SMOKES MARIJUANA Last use: 02/14/23 Lack of Transportation: No Lack of Food: Never True Current Housing: I Have Housing Concerned About Future Housing: No Difficulty Paying Gas/Electric Bills: No Difficulty Paying for Meds: No Currently Unemployed: No Education: High School Diploma/GED Difficulty w/ Childcare or Family Care: No Living arrangements: alone Occupation/Education: retired Gender identity (if verbalized by the patient): Male Sexual Orientation (if Verbalized by the Patient): Straight or Heterosexual Spiritual care concerns: No Exam Narrative: GENERAL: Well-appearing, well-nourished, and in no acute distress. HEAD: Normocephalic, atraumatic. EYES: PERRLA and EOMI. ENT: Nares clear, no rhinorrhea or epistaxis. Mucous membranes moist. Oropharynx without tonsillar hypertrophy exudate or o
[2023-02-15] MEDS: HYDROmorphone HCL INJ (*CRX) 1 MG/ML SYR 0.5 MG IV PUSH (09:49)
[2023-02-15] MEDS: SODIUM CHLORIDE 0.9% IV 1,000 ML 999 ML IV CONT (09:50)
[2023-02-15 10:06] LABS: Basophils Percent Auto 0.4 % (0.2-1.2); Eosinophils Percent Auto 0.3 % (0-4.4); Hematocrit 36.1 % (42.0-52.0); Hemoglobin 11.9 g/dL (14.0-18.0); Immature Granulocyte Absolute 0.03 K/mm3 (0.00-0.031); Immature Granulocyte Percent A 0.4 % (0-0.5); Lymphocytes Absolute Auto 0.58 K/mm3 (0.9-3.2); Lymphocytes Percent Auto 7.6 % (18.3-44.2); Mean Corpuscular Hemoglobin 30.2 pg (26-34); Mean Corpuscular Volume 91.6 fl (80-100); Mean Platelet Volume 9.5 fl (7.4-10.4); Monocytes Percent Auto 13.6 % (2.6-8.5); Neutrophils Absolute Auto 5.9 K/mm3 (1.3-6.7); Neutrophils Percent Auto 77.7 % (45.5-73.1); Platelet Count Result 133 k/mm3 (150-375); Red Blood Count 3.94 M/mm3 (4.6-6.20); Red Cell Distribution Width 15.6 % (11.5-14.5); White Blood Count 7.6 K/mm3 (4.5-10.0)
[2023-02-15 10:17] LABS: Alanine Aminotransferase 22 U/L (6-50); Albumin Level 3.7 g/dL (3.5-5.1); Alkaline Phosphatase 144 U/L (38-126); Anion Gap 8 mmol/L (8-16); Aspartate Amino Transferase 40 U/L (17-59); Blood Urea Nitrogen 14 mg/dL (9-20); Calcium 8.4 mg/dL (8.4-10.2); Carbon Dioxide 29 mmol/L (22-30); Chloride 93 mmol/L (98-107); Estimated CRCL calculation 52 ml/min; Estimated Glomerular Filt Rate 44; Glucose 123 mg/dL (65-110); Potassium 3.7 mmol/L (3.4-5.0); Sodium 130 mmol/L (137-145)
[2023-02-15 10:24] LABS: Appearance Urine Clear (Clear); Bacteria Urine None Seen /hpf; Bilirubin Urine Negative (Negative); Blood Urine 1+ (Negative); Color Urine Yellow (Yellow); Glucose Urine UA Negative (Negative); Ketones Urine Negative (Negative); Leukocyte Esterase Ur Negative LEU/UL (Negative); Nitrate Urine Negative (Negative); Non Pathogenic Casts 0-2; Protein Urine Negative (Negative); Specific Grav Ur 1.007 (1.001-1.035); Squamous Epithelial Cell Urine None seen /hpf (Few); WBC Urine 0-5 /hpf; pH Urine 7.5 (5.0-9.0)
[2023-02-15 10:27] LABS: Add Urine Microscopic? YES
[2023-02-15 10:47] LABS: CRP 11.1 mg/dL (<1.0)
[2023-02-15 11:11] LABS: Erythrocyte Sedimentation Rate 109 mm/hr (0-20)
[2023-02-15] MEDS: CEFEPIME 2 GM/NS 50 ML 2 GM/50 ML BAG IVPB (11:35)
[2023-02-15 11:58] LABS: Lactic Acid Reflex 1.3 mmol/L (0.7-2.0)
--- NOTE | 2023-02-15 12:27 | PM.CNOR ---
Assessment and Plan Assessment and plan (1) Post op infection: Qualifiers: Encounter type: initial encounter Postoperative infection type: deep incisional surgical site Qualified Code(s): T81.42XA - Infection following a procedure, deep incisional surgical site, initial encounter Code(s): T81.40XA - Infection following a procedure, unspecified, initial encounter Status: Acute Assessment and Plan: 11 days status post left forefoot reconstruction. Patient presented to the emergency room with 2-3 days of increasing swelling, pain and purulent drainage from the incisions. Patient seen and examined. Agree with admit and IV antibiotics with broad-spectrum coverage. Cultures done in the emergency room. Will follow results. Edema control. Wound care consult for recommendations for dressings to absorb drainage and antibacterial. Discussed with patient depending on response to antibiotics may require operative debridement verses further surgery. (2) Acquired hallux valgus of left foot: Code(s): M20.12 - Hallux valgus (acquired), left foot Status: Acute (3) Alcoholic cirrhosis of liver: Qualifiers: Ascites presence: with ascites Qualified Code(s): K70.31 - Alcoholic cirrhosis of liver with ascites Code(s): K70.30 - Alcoholic cirrhosis of liver without ascites Status: Acute (4) Foot ulcer, left: Qualifiers: Non-pressure ulcer stage: unspecified non-pressure ulcer stage Qualified Code(s): L97.529 - Non-pressure chronic ulcer of other part of left foot with unspecified severity Code(s): L97.529 - Non-pressure chronic ulcer of other part of left foot with unspecified severity Status: Acute (5) Abscess of foot including toes: Qualifiers: Laterality: left Qualified Code(s): L02.612 - Cutaneous abscess of left foot Code(s): L02.619 - Cutaneous abscess of unspecified foot Status: Acute History of Present Illness HPI Consult date: 02/15/23 Requesting physician: Lane Carroll PA-C Chief complaint: Cellulitis/ Post Op Infection Narrative: Patient known to the Orthopedic Service for left foot surgery. Previous necrotizing fasciitis of the left foot which resulted in amputation at the 2nd and 3rd toes. More recently, 11 days status post hallux reconstruction and removal of exostosis from the left forefoot. Presented to the emergency room today increased swelling, pain and drainage from the incision sites. Patient did not notice any fever, chills or other systemic complaints. Does complain of increased swelling to the left leg and foot and increased pain unrelieved with oxycodone. Review of Systems Review of Systems: All systems reviewed & are unremarkable except as noted in HPI and below Eyes: Eyes: Reports no additional eye complaints ENT: Reports system reviewed and no additional complaints, except as documented Cardiovascular: Cardiovascular: Reports no additional cardiovascular complaints Respiratory: Respiratory: Reports no additional respiratory complaints Gastrointestinal: Gastrointestinal: Reports no additional gastrointestinal complaints Genitourinary: Genitourinary: Reports no additional male genitourinary complaints Neurologic: Reports system reviewed and no additional complaints, except as documented and Denies confusion Psychiatric: Psychiatric: Reports no additional psychiatric complaints and Denies confusion Endocrine: Endocrine: Reports no additional endocrine complaints Hematologic/Lymphatic: Hematologic/Lymphatic: Reports no additional hematologic/lymphatic complaints Allergic/Immunologic: Allergic/Immunologic: Reports no additional allergic/immunologic complaints PMFSH Past Medical History Medical History Abrasion, knee Abscess of foot including toes Acquired hallux valgus of left foot Alcoholic cirrhosis of liver He has abstained from alco
[2023-02-15] MEDS: VANCOMYCIN 1,250 MG/NS 250 ML 1,250 MG/250 ML BAG 166.67 MG IVPB ×2 (12:34→15:02)
[2023-02-15] MEDS: SODIUM CHLORIDE 0.9% IV 1,000 ML 125 ML IV CONT ×2 (12:35→21:05)
[2023-02-15] MEDS: ONDANSETRON INJ 4 MG/2 ML VIAL IV PUSH (12:38)
[2023-02-15] MEDS: MORPHINE SULFATE (*CRX) 4 MG/ML INJ IV PUSH ×3 (12:38→23:11)
--- NOTE | 2023-02-15 13:22 | ADMGEN ---
This patient, Rhett Garner, was admitted to Medical Room 249-01. Patient/family oriented to hospital policies and general routines including ID bracelet, bed and alarms, visiting hours, pain management, procedures, bathroom and other care routines, personal items, smoking policy, room service/diet, and visiting hours. Information on how to activate the Rapid Response Team has been discussed. Patient/Family are encouraged to report perceived risks to care and to ask questions if they do not understand what they are told or what they should do.
--- NOTE | 2023-02-15 13:59 | PM.IMHP ---
H&P: HPI History of Present Illness Date/Time: 02/15/23 14:15 Chief Complaint: Swelling and drainage from recent operative site on left foot. Narrative: This is a 62-year-old male with history of MRSA infection, hypertension, paroxysmal atrial fibrillation, chronic kidney disease, gastroesophageal reflux disease, and alcoholic cirrhosis of liver (abstained from alcohol since July 2020) who presented to the emergency department via private vehicle for evaluation of swelling and drainage from recent operative site on left foot. He has a history of previous necrotizing fasciitis of the left foot resulting in amputation of the 2nd and 3rd toes and 11 days ago he underwent hallux reconstruction and removal of exostosis from the left forefoot. The last 3 days he has had increasing pain and swelling in the foot and ankle and he now has drainage coming from the incision site. He denies fever, chills, sweats, nausea, and vomiting. Review of Systems Review of Systems: Twelve systems were reviewed and are negative except for as per HPI. [facility] Past Medical History Medical History (Updated 02/15/23 @ 23:28 by Rosi Cheatham PA-C) Alcoholic cirrhosis of liver He has abstained from alcohol since July 2020. Chronic anemia Chronic hyponatremia Chronic kidney disease, stage 3 Essential hypertension Gastroesophageal reflux disease Necrotizing fasciitis of ankle and foot Neuropathy Paroxysmal atrial fibrillation Thrombocytopenia Surgical History Surgical History (Updated 02/15/23 @ 14:08 by Rosi Cheatham PA-C) Amputation of toe of left foot History of surgery on arm (2012) ORIF right humerus fracture. History of surgery on wrist History of ventral hernia repair (11/2013) Subsequent abdominal wall exploration with drainage of a seroma at the same site in 03/2014. Family History Family History Mother Hypertension Family history of diabetes mellitus in first degree relative Diabetes mellitus Father Family history of pancreatic cancer Social History Social History (Updated 02/15/23 @ 23:25 by Rosi Cheatham PA-C) Social History: Surrogate medical decision maker: Shawna Garner, daughter. Code status: Full code. Smoking status: Never smoker Alcohol intake: current Drinks per week: 5 Alcohol use details: History of heavy alcohol use, now rare alcohol use in moderation. Substance use: current Substance use type: marijuana Other substance usage details: EDIBLES, SMOKES MARIJUANA Last use: 02/14/23 Lack of Transportation: No Lack of Food: Never True Current Housing: I Have Housing Concerned About Future Housing: No Difficulty Paying Gas/Electric Bills: No Difficulty Paying for Meds: No Currently Unemployed: No Education: High School Diploma/GED Difficulty w/ Childcare or Family Care: No Living arrangements: alone Additional living arrangements comments: Lives alone in [place]. Occupation/Education: retired Additional occupation/education comments: [employer]. Spiritual care concerns: No Meds Home Medications and Allergies Home Medications Medication Instructions Recorded Confirmed Type omeprazole 20 mg capsule,delayed 40 mg PO BID 08/19/19 02/15/23 History release thiamine HCl (vitamin B1) 250 mg 250 mg PO DAILY 08/19/19 02/15/23 History tablet ciprofloxacin HCl 500 mg tablet 500 mg PO 1700 08/09/21 02/15/23 History nadolol 20 mg tablet 40 mg PO DAILY 08/09/21 02/15/23 History furosemide 40 mg tablet 40 mg PO DAILY 08/29/22 02/15/23 History spironolactone 100 mg tablet 100 mg PO DAILY 08/29/22 02/15/23 History gabapentin 600 mg tablet 600 mg PO TID #270 tabs 10/02/22 02/15/23 Rx cyclobenzaprine 5 mg tablet 5 mg PO QHS PRN Muscle Spasm #30 12/28/22 02/15/23 Rx tabs Allergies Allergy/AdvReac Type Severity Reaction Status Date / Time No Known Allergies Allergy Unknown
[2023-02-15] MEDS: SILVERGEL (ELTA) 45 ML 1 APPLIC TOPICAL (15:03)
[2023-02-15] MEDS: PANTOPRAZOLE 40 MG TABLET PO (16:24)
[2023-02-15] MEDS: GABAPENTIN 300 MG CAPSULE 600 MG PO (16:24)
[2023-02-16] MEDS: CEFEPIME 2 GM/NS 50 ML 2 GM/50 ML BAG IVPB ×3 (00:16→23:18)
[2023-02-16 05:08] VITALS: BP 114/65; PULSE 68; RESP 20; TEMP 36.6; O2SAT 100
[2023-02-16 05:41] LABS: Hematocrit 35.5 % (42.0-52.0); Hemoglobin 11.5 g/dL (14.0-18.0); Mean Corpuscular HGB Conc 32.4 g/dl (32-36); Mean Corpuscular Hemoglobin 30.2 pg (26-34); Mean Corpuscular Volume 93.2 fl (80-100); Platelet Count Result 105 k/mm3 (150-375); Red Blood Count 3.81 M/mm3 (4.6-6.20); Red Cell Distribution Width 15.9 % (11.5-14.5); White Blood Count 5.5 K/mm3 (4.5-10.0)
[2023-02-16 05:54] LABS: Alanine Aminotransferase 18 U/L (6-50); Albumin Level 3.2 g/dL (3.5-5.1); Alkaline Phosphatase 115 U/L (38-126); Anion Gap 9 mmol/L (8-16); Aspartate Amino Transferase 32 U/L (17-59); Bilirubin,Total 3.5 mg/dL (0.2-1.3); Blood Urea Nitrogen 15 mg/dL (9-20); Calcium 7.5 mg/dL (8.4-10.2); Carbon Dioxide 22 mmol/L (22-30); Chloride 100 mmol/L (98-107); Estimated CRCL calculation 78 ml/min; Estimated Glomerular Filt Rate > 60; Glucose 96 mg/dL (65-110); Potassium 3.4 mmol/L (3.4-5.0); Sodium 131 mmol/L (137-145)
[2023-02-16] MEDS: GABAPENTIN 300 MG CAPSULE 600 MG PO ×3 (09:02→17:34)
[2023-02-16] MEDS: FUROSEMIDE 40 MG TABLET PO (09:02)
[2023-02-16 09:03] VITALS: PULSE 78
[2023-02-16] MEDS: nadoloL 20 MG TABLET 40 MG PO (09:03)
[2023-02-16] MEDS: PANTOPRAZOLE 40 MG TABLET PO ×2 (09:05→17:34)
[2023-02-16] MEDS: THIAMINE HCL 100 MG TABLET 200 MG PO (09:05)
[2023-02-16] MEDS: SPIRONOLACTONE 50 MG TABLET 100 MG PO (09:05)
[2023-02-16] MEDS: MORPHINE SULFATE (*CRX) 2 MG/ML INJ IV PUSH (09:14)
[2023-02-16] MEDS: SILVERGEL (ELTA) 45 ML 1 APPLIC TOPICAL (12:40)
[2023-02-16 14:00] VITALS: BP 116/66; PULSE 70; RESP 16; TEMP 36.6; O2SAT 98
--- NOTE | 2023-02-16 14:48 | WPDPN ---
Progress Note: A&P Assessment and Plan (1) Post op infection: Qualifiers: Encounter type: initial encounter Postoperative infection type: deep incisional surgical site Qualified Code(s): T81.42XA - Infection following a procedure, deep incisional surgical site, initial encounter Code(s): T81.40XA - Infection following a procedure, unspecified, initial encounter Status: Acute (2) Chronic kidney disease, stage 3: Code(s): N18.30 - Chronic kidney disease, stage 3 unspecified Status: Acute (3) Chronic anemia: Code(s): D64.9 - Anemia, unspecified Status: Acute (4) Thrombocytopenia: Code(s): D69.6 - Thrombocytopenia, unspecified Status: Acute (5) Chronic hyponatremia: Code(s): E87.1 - Hypo-osmolality and hyponatremia Status: Acute (6) Alcoholic cirrhosis of liver: Qualifiers: Ascites presence: with ascites Qualified Code(s): K70.31 - Alcoholic cirrhosis of liver with ascites Code(s): K70.30 - Alcoholic cirrhosis of liver without ascites Status: Acute Plan The patient presented to the emergency department today for evaluation of redness, swelling, and drainage at the site of a recent left foot operation as per HPI. Labs, imaging, EKG, and all reports were personally reviewed. He has been started on vancomycin given history of MRSA, pending wound culture. Dr. Negron was consulted and he recommends wound care consult and close monitoring as he may require operative debridement or further surgery. Analgesics are available as needed. He has chronic thrombocytopenia and anemia, likely related to his chronic diseases, and his numbers look stable. He also has chronic hyponatremia which is stable. Total bilirubin is a bit elevated though he has chronic cirrhosis and this appears unchanged from previous labs. Abdominal exam is benign without evidence of ascites or acute decompensation. His home medications will be reviewed and resumed as appropriate. 02/16/2023 interval history: patient with surgical wound s/p amputation of 2nd and 3rd Lt toes 11 days, was seen by his surgeon recommended conservative management with IV abx, and if there is no improvement, may need surgical debriedment or surgical intervention, patient stats pain is little better, will continue to monitor and further recommendation to follow, Subjective Date/time seen: 02/16/23 14:48 Interval history: Swelling and drainage from recent operative site on left foot. HPI-Narrative: This is a 62-year-old male with history of MRSA infection, hypertension, paroxysmal atrial fibrillation, chronic kidney disease, gastroesophageal reflux disease, and alcoholic cirrhosis of liver (abstained from alcohol since July 2020) who presented to the emergency department via private vehicle for evaluation of swelling and drainage from recent operative site on left foot. He has a history of previous necrotizing fasciitis of the left foot resulting in amputation of the 2nd and 3rd toes and 11 days ago he underwent hallux reconstruction and removal of exostosis from the left forefoot. The last 3 days he has had increasing pain and swelling in the foot and ankle and he now has drainage coming from the incision site. He denies fever, chills, sweats, nausea, and vomiting. 02/16/2023 interval history: patient with surgical wound s/p amputation of 2nd and 3rd Lt toes 11 days, was seen by his surgeon recommended conservative management with IV abx, and if there is no improvement, may need surgical debriedment or surgical intervention, patient stats pain is little better, will continue to monitor and further recommendation to follow, Review of Systems Review of Systems: Twelve systems were reviewed and are negative except for as per HPI. Exam Narrative: Patient is comfortable, NAD HEENT: eyes are clear and none icteric LUNGS: Normal respiratory effort ABD: Distended Lower extremities: n
[2023-02-16] MEDS: HYDROcodone/acetaminophen (*CRX) 5-325 MG TABLET 1 TAB PO (17:41)
[2023-02-16 22:00] VITALS: BP 102/62; PULSE 63; RESP 18; TEMP 36.5; O2SAT 98
[2023-02-17 02:21] LABS: Hematocrit 33.5 % (42.0-52.0); Hemoglobin 10.8 g/dL (14.0-18.0); Mean Corpuscular HGB Conc 32.2 g/dl (32-36); Mean Corpuscular Volume 93.1 fl (80-100); Mean Platelet Volume 9.4 fl (7.4-10.4); Platelet Count Result 112 k/mm3 (150-375); Red Cell Distribution Width 15.7 % (11.5-14.5); White Blood Count 5.6 K/mm3 (4.5-10.0)
[2023-02-17 02:35] LABS: Anion Gap 8 mmol/L (8-16); Blood Urea Nitrogen 16 mg/dL (9-20); Calcium 8.1 mg/dL (8.4-10.2); Carbon Dioxide 25 mmol/L (22-30); Chloride 98 mmol/L (98-107); Estimated CRCL calculation 72 ml/min; Estimated Glomerular Filt Rate 56; Glucose 126 mg/dL (65-110); Magnesium 2.1 mg/dL (1.6-2.3); Potassium 3.3 mmol/L (3.4-5.0); Sodium 131 mmol/L (137-145)
[2023-02-17 03:21] LABS: Vancomycin Trough 16.3 ug/mL (10.0-20.0)
[2023-02-17 06:00] VITALS: BP 105/66; PULSE 67; RESP 18; TEMP 36.6; O2SAT 99
--- NOTE | 2023-02-17 08:21 | PM.PNORT ---
Progress Note: A&P Assessment and Plan (1) Post op infection: Qualifiers: Encounter type: subsequent encounter Postoperative infection type: deep incisional surgical site Qualified Code(s): T81.42XD - Infection following a procedure, deep incisional surgical site, subsequent encounter Code(s): T81.40XA - Infection following a procedure, unspecified, initial encounter Status: Acute Assessment and Plan: 2 weeks status post left foot surgery. Now with postoperative wound infection, cultures showing Staph aureus. Swelling, erythema and drainage slightly improved. Discussed with patient. Treatment options reviewed including operative and non operative treatment. Recommend debridement of left foot wounds. Questions answered. Discussed nonoperative and operative treatment options with the patient. Risks and benefits of each as well as alternatives were reviewed. All of the patient's questions were answered. The risks of surgery reviewed including but not limited to: Neurovascular damage, wound complication, infection, blood clot, pulmonary embolus, stroke, myocardial infarction, and anesthetic risks up to and including . Continued pain and possible dysfunction were explained. Specific risks of the procedure including later recurrence of deformity. No guarantees were offered. If hardware used, discussed risk of failure/ breakage and possible need for removal. If complications occur, the patient understands the need for further treatment, possible further surgery. Patient verbalizes understanding and wishes to proceed. PLAN: Left foot excisional debridement, possible amputation toes. Continue with IV antibiotics. Await culture sensitivities. (2) Abscess of foot including toes: Qualifiers: Laterality: left Qualified Code(s): L02.612 - Cutaneous abscess of left foot Code(s): L02.619 - Cutaneous abscess of unspecified foot Status: Acute Subjective Subjective Date/Time Seen: 02/17/23 08:21 Principal diagnosis: Left foot postoperative wound infection Interval history: patient awake and alert. States pain a little bit better. Still sensitive to touch. Exam Const: General: well developed, alert and awake; No confusion Orientation/consciousness: No confusion Neck: Neck: supple and nontender Chest: Chest palpation & inspection: normal inspection of the chest Resp: Effort & Inspection: normal respiratory effort and no audible wheezes Cardio: Rate: regular rate Rhythm: regular rhythm Neuro: General: No confusion Extrem: General: capillary refill normal Right upper extremity: normal to inspection Left upper extremity: normal to inspection Right lower extremity: normal to inspection, hip/thigh Details: normal to inspection, knee Details: normal to inspection and knee ligament exam normal, lower leg Details: pitting edema Details: 2+ and ecchymosis, ankle Details: normal ROM and ecchymosis (improved ) and foot Details: toes with normal ROM, ecchymosis (improved ), vascular exam Details: dorsalis pedis pulse present and normal capillary refill and motor-sensory exam Details: light-touch abnormal Location: in all toes Left lower extremity: hip/thigh Details: normal to inspection, knee Details: normal to inspection and knee ligament exam normal Details: anterior drawer test normal, valgus stress test normal, varus stress test normal and Justin's test normal, lower leg Details: no localized swelling, ankle (no calf tenderness) Details: normal to inspection and normal ROM; no tenderness and no swelling and foot Details: normal capillary refill, tenderness, toes with normal ROM, vascular exam Details: dorsalis pedis pulse present and normal capillary refill and motor-sensory exam light-touch abnormal in all toes Other: Ulcer on the plantar aspect of the left hallux. Ulcer on the plantar aspect of the 4th MTP joint closed. Left foot medial hallux incision with puru
[2023-02-17] MEDS: FUROSEMIDE 40 MG TABLET PO (09:26)
[2023-02-17 09:28] VITALS: PULSE 67
[2023-02-17] MEDS: PANTOPRAZOLE 40 MG TABLET PO ×2 (09:28→17:23)
[2023-02-17] MEDS: GABAPENTIN 300 MG CAPSULE 600 MG PO ×3 (09:28→17:23)
[2023-02-17] MEDS: nadoloL 20 MG TABLET 40 MG PO (09:28)
[2023-02-17] MEDS: HYDROcodone/acetaminophen (*CRX) 5-325 MG TABLET 1 TAB PO ×2 (09:29→17:23)
[2023-02-17] MEDS: THIAMINE HCL 100 MG TABLET 200 MG PO (09:29)
[2023-02-17] MEDS: SPIRONOLACTONE 50 MG TABLET 100 MG PO (09:29)
[2023-02-17] MEDS: SILVERGEL (ELTA) 45 ML 1 APPLIC TOPICAL (09:30)
[2023-02-17] MEDS: POTASSIUM CHLORIDE 20 MEQ ER TABLET PO (10:10)
--- NOTE | 2023-02-17 11:39 | WPDPN ---
Progress Note: A&P Assessment and Plan (1) Post op infection: Qualifiers: Encounter type: subsequent encounter Postoperative infection type: deep incisional surgical site Qualified Code(s): T81.42XD - Infection following a procedure, deep incisional surgical site, subsequent encounter Code(s): T81.40XA - Infection following a procedure, unspecified, initial encounter Status: Acute (2) Chronic kidney disease, stage 3: Code(s): N18.30 - Chronic kidney disease, stage 3 unspecified Status: Acute (3) Chronic anemia: Code(s): D64.9 - Anemia, unspecified Status: Acute (4) Thrombocytopenia: Code(s): D69.6 - Thrombocytopenia, unspecified Status: Acute (5) Chronic hyponatremia: Code(s): E87.1 - Hypo-osmolality and hyponatremia Status: Acute (6) Alcoholic cirrhosis of liver: Qualifiers: Ascites presence: with ascites Qualified Code(s): K70.31 - Alcoholic cirrhosis of liver with ascites Code(s): K70.30 - Alcoholic cirrhosis of liver without ascites Status: Acute Plan The patient presented to the emergency department today for evaluation of redness, swelling, and drainage at the site of a recent left foot operation as per HPI. Labs, imaging, EKG, and all reports were personally reviewed. He has been started on vancomycin given history of MRSA, pending wound culture. Dr. Negron was consulted and he recommends wound care consult and close monitoring as he may require operative debridement or further surgery. Analgesics are available as needed. He has chronic thrombocytopenia and anemia, likely related to his chronic diseases, and his numbers look stable. He also has chronic hyponatremia which is stable. Total bilirubin is a bit elevated though he has chronic cirrhosis and this appears unchanged from previous labs. Abdominal exam is benign without evidence of ascites or acute decompensation. His home medications will be reviewed and resumed as appropriate. 02/17/2023 interval history: patient with surgical wound s/p amputation of 2nd and 3rd Lt toes 11 days, on 02/16 was seen by his surgeon recommended conservative management with IV abx, and if there is no improvement, today surgeon recommended need for surgical debriedment or surgical intervention, and patient is agreeable, possibly tomorrow, patient stats pain is little better, will continue to monitor and further recommendation to follow, Subjective Date/time seen: 02/17/23 11:39 Interval history: The patient presented to the emergency department today for evaluation of redness, swelling, and drainage at the site of a recent left foot operation as per HPI. Labs, imaging, EKG, and all reports were personally reviewed. He has been started on vancomycin given history of MRSA, pending wound culture. Dr. Negron was consulted and he recommends wound care consult and close monitoring as he may require operative debridement or further surgery. Analgesics are available as needed. He has chronic thrombocytopenia and anemia, likely related to his chronic diseases, and his numbers look stable. He also has chronic hyponatremia which is stable. Total bilirubin is a bit elevated though he has chronic cirrhosis and this appears unchanged from previous labs. Abdominal exam is benign without evidence of ascites or acute decompensation. His home medications will be reviewed and resumed as appropriate. 02/17/2023 interval history: patient with surgical wound s/p amputation of 2nd and 3rd Lt toes 11 days, on 02/16 was seen by his surgeon recommended conservative management with IV abx, and if there is no improvement, today surgeon recommended need for surgical debriedment or surgical intervention, and patient is agreeable, possibly tomorrow, patient stats pain is little better, will continue to monitor and further recommendation to follow, Review of Systems Review of Systems: Twelve systems were reviewed and are negative
[2023-02-17] MEDS: CEFEPIME 2 GM/NS 50 ML 2 GM/50 ML BAG IVPB ×2 (12:40→23:10)
[2023-02-17 14:14] VITALS: BP 122/74; PULSE 64; RESP 18; TEMP 36.4; O2SAT 100
[2023-02-17] MEDS: MORPHINE SULFATE (*CRX) 2 MG/ML INJ IV PUSH (20:14)
[2023-02-17 20:35] VITALS: BP 137/71; PULSE 62; RESP 18; TEMP 36.5; O2SAT 100
[2023-02-18] VITALS (14 sets, daily range): BP systolic 99–132; BP diastolic 56–77; PULSE 56–105; RESP 12–20; TEMP 35.7–36.8; O2SAT 95–100
[2023-02-18] MEDS: MORPHINE SULFATE (*CRX) 2 MG/ML INJ IV PUSH ×4 (03:18→23:08)
[2023-02-18 05:25] LABS: Hematocrit 33.6 % (42.0-52.0); Hemoglobin 11.1 g/dL (14.0-18.0); Mean Corpuscular Hemoglobin 30.2 pg (26-34); Mean Corpuscular Volume 91.6 fl (80-100); Platelet Count Result 119 k/mm3 (150-375); Red Blood Count 3.67 M/mm3 (4.6-6.20); Red Cell Distribution Width 15.7 % (11.5-14.5); White Blood Count 5.4 K/mm3 (4.5-10.0)
[2023-02-18 05:39] LABS: Anion Gap 8 mmol/L (8-16); Blood Urea Nitrogen 14 mg/dL (9-20); Calcium 8.3 mg/dL (8.4-10.2); Carbon Dioxide 28 mmol/L (22-30); Chloride 96 mmol/L (98-107); Estimated CRCL calculation 79 ml/min; Estimated Glomerular Filt Rate > 60; Glucose 110 mg/dL (65-110); Potassium 3.1 mmol/L (3.4-5.0); Sodium 132 mmol/L (137-145)
--- NOTE | 2023-02-18 07:32 | WPDHPUPDATE1 ---
History and Physical Update Update Date/Time: 02/18/23 07:32 History and Physical has been reviewed, including an updated exam of the patient. There are NO changes in the patient's condition. Risks, benefits, and alternatives have been discussed and questions answered. Patient agrees to proceed with procedure.
--- NOTE | 2023-02-18 10:19 | WPDANESEPPF ---
Anes - Initial Pre Proc Eval Procedure: Operation Date: 02/18/23 10:15 Proposed Procedures p Left Foot Debridement, Possible Transmetatarsal Amputation Left Foot - Blair Negron MD Date/Time: 02/18/23 10:19 Surgeon: Rohan Huynh MD Pre Op Diagnosis: Cellulitis/ Post Op Infection Patient Data Age: 62 Gender: M Height: 1.88 m Weight: 115.2 kg Last Vital Signs Temp 36.8 C 02/18/23 06:00 Pulse 64 02/18/23 06:00 Resp 20 02/18/23 06:00 BP 99/56 L 02/18/23 06:00 Pulse Ox 98 02/18/23 06:00 O2 Del Method Room Air 02/15/23 21:05 Allergies Allergy/AdvReac Type Severity Reaction Status Date / Time No Known Allergies Allergy Unknown Verified 02/18/23 10:10 Home Medications Medication Instructions Recorded Confirmed Type omeprazole 20 mg capsule,delayed 40 mg PO BID 08/19/19 02/15/23 History release thiamine HCl (vitamin B1) 250 mg 250 mg PO DAILY 08/19/19 02/15/23 History tablet ciprofloxacin HCl 500 mg tablet 500 mg PO 1700 08/09/21 02/15/23 History nadolol 20 mg tablet 40 mg PO DAILY 08/09/21 02/15/23 History furosemide 40 mg tablet 40 mg PO DAILY 08/29/22 02/15/23 History spironolactone 100 mg tablet 100 mg PO DAILY 08/29/22 02/15/23 History gabapentin 600 mg tablet 600 mg PO TID #270 tabs 10/02/22 02/15/23 Rx cyclobenzaprine 5 mg tablet 5 mg PO QHS PRN Muscle Spasm #30 12/28/22 02/15/23 Rx tabs Laboratory Tests 02/18/23 05:05 WBC 5.4 K/mm3 (4.5-10.0) RBC 3.67 L M/mm3 (4.6-6.20) Hgb 11.1 L g/dL (14.0-18.0) Hct 33.6 L % (42.0-52.0) MCV 91.6 fl (80-100) MCH 30.2 pg (26-34) MCHC 33.0 g/dl (32-36) RDW 15.7 H % (11.5-14.5) Plt Count 119 L k/mm3 (150-375) MPV 9.0 fl (7.4-10.4) Sodium 132 L mmol/L (137-145) Potassium 3.1 L mmol/L (3.4-5.0) Chloride 96 L mmol/L (98-107) Carbon Dioxide 28 mmol/L (22-30) Anion Gap 8 mmol/L (8-16) BUN 14 mg/dL (9-20) Creatinine 1.20 mg/dL (0.7-1.3) Estim Creat Clear Calc 79 ml/min Estimated GFR > 60 (59 - ) Glucose 110 mg/dL (65-110) Calcium 8.3 L mg/dL (8.4-10.2) Magnesium 2.0 mg/dL (1.6-2.3) Patient hx anesthesia problems: none Family hx anesthesia problems: none Results Review: All pre-operative results and documents have been reviewed as part of the pre-operative evaluation. [facility] Past Medical History Medical History Alcoholic cirrhosis of liver He has abstained from alcohol since July 2020. Chronic anemia Chronic hyponatremia Chronic kidney disease, stage 3 Essential hypertension Gastroesophageal reflux disease Necrotizing fasciitis of ankle and foot Neuropathy Paroxysmal atrial fibrillation Thrombocytopenia Surgical History Surgical History Amputation of toe of left foot History of surgery on arm (2012) ORIF right humerus fracture. History of surgery on wrist History of ventral hernia repair (11/2013) Subsequent abdominal wall exploration with drainage of a seroma at the same site in 03/2014. Family History Family History Mother Hypertension Family history of diabetes mellitus in first degree relative Diabetes mellitus Father Family history of pancreatic cancer Social History Social History Social History: Surrogate medical decision maker: Shawna Garner, daughter. Code status: Full code. Smoking status: Never smoker Alcohol intake: current Drinks per week: 5 Alcohol use details: History of heavy alcohol use, now rare alcohol use in moderation. Substance use: current Substance use type: marijuana Other substance usage details: EDIBLES, SMOKES MARIJUANA Last use: 02/14/23 Lack of Transportation: No Lack of Food: Never True Cu
[2023-02-18] MEDS: BUPivacaine HCL 0.5% 10 ML AMP 20 ML INFILTRATE (10:59)
[2023-02-18] MEDS: LACTATED RINGERS 1,000 ML 30 ML IV CONT (11:41)
[2023-02-18] MEDS: fentaNYL CITRATE INJ (*CRX) 100 MCG/2 ML VIAL 25 MCG IV PUSH ×4 (12:13→12:19)
--- NOTE | 2023-02-18 12:32 | W.PM.PROC2 ---
Procedure Note - Detailed Date of Procedure 02/18/23 Pre-op Diagnosis Cellulitis/ Post Op Infection Post-op Diagnosis Same Procedure Performed left foot transmetatarsal amputation Surgeon Blair Negron MD [employer] Anesthesia General Indications 62-year-old gentleman with liver failure and peripheral neuropathy who is 2 weeks status post left forefoot surgery. This was complicated by wound infection with Staph aureus. He has lost correction of the hallux alignment and now has significant deformity along with the infection. Treatment options were reviewed. He has opted for amputation. Findings Deep wound infection of the medial left foot as well as the dorsum. Incompetence of the medial capsule of the hallux with recurrence of hallux valgus deformity. Loss of alignment of the osteotomy of the hallux with failure of hardware. Description of Procedure Patient identified in the preoperative holding. Informed consent given. Operative extremity marked. Patient received intravenous antibiotics. Patient brought to the operating room where underwent general anesthetic by anesthesia team. Positioned supine on operating room table. Time-out performed confirming the patient, site of the surgery and the plan. Left foot prepped and draped usual sterile surgical fashion using a Betadine prep solution. The foot was exsanguinated and a calf tourniquet inflated to 225 mmHg. The findings were noted with deep wound infection times to the left foot as well as loss of correction and incompetence of the medial capsule of the hallux. Patient indicated for transmetatarsal amputation. 15 blade knife used to make an elliptical wound at the base of the toes. Hemostasis controlled electrocautery. With soft tissue protected a sagittal saw was used to transect through the neck of the metatarsal of each toe. The toes were then removed as 1 unit and passed off as specimen. Wound was thoroughly irrigated with solution. Any rough bone ends were smoothed with a rongeur. The tourniquet was then released and bleeding points were coagulated. Closure was then performed in layers with 2 Vicryl interrupted suture for the fascia and 3 0 nylon and 2 0 Prolene for the skin. Sterile dressing applied. The patient was then woken from anesthesia, extubated and taken to the recovery room in stable condition. All sponge, needle, instrument counts were correct at the end of the case. Estimated Blood Loss -30.0 Tourniquet Time 21 Urine Output 450 Drains No Packing No Pathology Yes ( Transmetatarsal amputation) Complications None Condition Stable Disposition PACU [facility] Billing Surgery - Charge Forward: Surgery Billing ([id number])
[2023-02-18] MEDS: CEFEPIME 2 GM/NS 50 ML 2 GM/50 ML BAG IVPB ×2 (13:19→23:05)
[2023-02-18] MEDS: oxyCODONE HCL (*CRX) 5 MG TAB IR PO (13:19)
[2023-02-18] MEDS: GABAPENTIN 300 MG CAPSULE 600 MG PO ×2 (13:19→16:59)
--- NOTE | 2023-02-18 14:50 | WPDPN ---
Progress Note: A&P Assessment and Plan (1) Post op infection: Qualifiers: Encounter type: subsequent encounter Postoperative infection type: deep incisional surgical site Qualified Code(s): T81.42XD - Infection following a procedure, deep incisional surgical site, subsequent encounter Code(s): T81.40XA - Infection following a procedure, unspecified, initial encounter Status: Acute (2) Chronic kidney disease, stage 3: Code(s): N18.30 - Chronic kidney disease, stage 3 unspecified Status: Acute (3) Chronic anemia: Code(s): D64.9 - Anemia, unspecified Status: Acute (4) Thrombocytopenia: Code(s): D69.6 - Thrombocytopenia, unspecified Status: Acute (5) Chronic hyponatremia: Code(s): E87.1 - Hypo-osmolality and hyponatremia Status: Acute (6) Alcoholic cirrhosis of liver: Qualifiers: Ascites presence: with ascites Qualified Code(s): K70.31 - Alcoholic cirrhosis of liver with ascites Code(s): K70.30 - Alcoholic cirrhosis of liver without ascites Status: Acute Plan The patient presented to the emergency department today for evaluation of redness, swelling, and drainage at the site of a recent left foot operation as per HPI. Labs, imaging, EKG, and all reports were personally reviewed. He has been started on vancomycin given history of MRSA, pending wound culture. Dr. Negron was consulted and he recommends wound care consult and close monitoring as he may require operative debridement or further surgery. Analgesics are available as needed. He has chronic thrombocytopenia and anemia, likely related to his chronic diseases, and his numbers look stable. He also has chronic hyponatremia which is stable. Total bilirubin is a bit elevated though he has chronic cirrhosis and this appears unchanged from previous labs. Abdominal exam is benign without evidence of ascites or acute decompensation. His home medications will be reviewed and resumed as appropriate. 02/18/2023 interval history: patient with surgical wound s/p amputation of 2nd and 3rd Lt toes 11 days, on 02/16 was seen by his surgeon recommended conservative management with IV abx, and if there is no improvement, 0n 02/17 surgeon recommended need for surgical debriedment or surgical intervention, and patient is agreeable, today patient was taken to OR and left foot transmetatarsal amputation, patient stats pain is little better, Patient will need PT and will benefit from rehab, will continue to monitor and further recommendation to follow, Subjective Date/time seen: 02/18/23 14:50 Interval history: The patient presented to the emergency department today for evaluation of redness, swelling, and drainage at the site of a recent left foot operation as per HPI. Labs, imaging, EKG, and all reports were personally reviewed. He has been started on vancomycin given history of MRSA, pending wound culture. Dr. Negron was consulted and he recommends wound care consult and close monitoring as he may require operative debridement or further surgery. Analgesics are available as needed. He has chronic thrombocytopenia and anemia, likely related to his chronic diseases, and his numbers look stable. He also has chronic hyponatremia which is stable. Total bilirubin is a bit elevated though he has chronic cirrhosis and this appears unchanged from previous labs. Abdominal exam is benign without evidence of ascites or acute decompensation. His home medications will be reviewed and resumed as appropriate. 02/18/2023 interval history: patient with surgical wound s/p amputation of 2nd and 3rd Lt toes 11 days, on 02/16 was seen by his surgeon recommended conservative management with IV abx, and if there is no improvement, 0n 02/17 surgeon recommended need for surgical debriedment or surgical intervention, and patient is agreeable, today patient was taken to OR and left foot transmetatarsal amputation, patient stats pain is little
--- NOTE | 2023-02-18 15:07 | PC.NURSE ---
1500 dose of Vancomycin given in surgery 02/18
[2023-02-18] MEDS: PANTOPRAZOLE 40 MG TABLET PO (16:59)
[2023-02-18] MEDS: SENNA/DOCUSATE SODIUM TABLET 2 TAB PO (16:59)
[2023-02-18] MEDS: oxyCODONE HCL (*CRX) 5 MG TAB IR 10 MG PO (20:23)
[2023-02-19] VITALS (7 sets, daily range): BP systolic 104–150; BP diastolic 58–80; PULSE 66–77; RESP 16–18; TEMP 35.6–36.8; O2SAT 97–99
[2023-02-19 05:37] LABS: Hematocrit 33.1 % (42.0-52.0); Hemoglobin 10.7 g/dL (14.0-18.0); Mean Corpuscular HGB Conc 32.3 g/dl (32-36); Mean Corpuscular Volume 92.7 fl (80-100); Mean Platelet Volume 9.3 fl (7.4-10.4); Platelet Count Result 103 k/mm3 (150-375); Red Blood Count 3.57 M/mm3 (4.6-6.20); White Blood Count 8.9 K/mm3 (4.5-10.0)
[2023-02-19 05:46] LABS: Anion Gap 6 mmol/L (8-16); Blood Urea Nitrogen 14 mg/dL (9-20); Calcium 8.6 mg/dL (8.4-10.2); Carbon Dioxide 29 mmol/L (22-30); Chloride 97 mmol/L (98-107); Estimated CRCL calculation 84 ml/min; Estimated Glomerular Filt Rate > 60; Glucose 152 mg/dL (65-110); Magnesium 2.1 mg/dL (1.6-2.3); Potassium 3.8 mmol/L (3.4-5.0); Sodium 132 mmol/L (137-145)
[2023-02-19] MEDS: SPIRONOLACTONE 50 MG TABLET 100 MG PO (08:06)
[2023-02-19] MEDS: PANTOPRAZOLE 40 MG TABLET PO ×2 (08:06→16:41)
[2023-02-19] MEDS: SENNA/DOCUSATE SODIUM TABLET 2 TAB PO ×2 (08:06→16:42)
[2023-02-19] MEDS: THIAMINE HCL 100 MG TABLET 200 MG PO (08:06)
[2023-02-19] MEDS: FUROSEMIDE 40 MG TABLET PO (08:06)
[2023-02-19] MEDS: nadoloL 20 MG TABLET 40 MG PO (08:06)
[2023-02-19] MEDS: polyethylene glycoL 3350 17 GM POWD.PACK PO (08:07)
--- NOTE | 2023-02-19 08:08 | PM.PNORT ---
Progress Note: A&P Assessment and Plan (1) Post op infection: Qualifiers: Encounter type: subsequent encounter Postoperative infection type: deep incisional surgical site Qualified Code(s): T81.42XD - Infection following a procedure, deep incisional surgical site, subsequent encounter Code(s): T81.40XA - Infection following a procedure, unspecified, initial encounter Status: Acute Assessment and Plan: Postoperative day 1 left transmetatarsal amputation. Operative findings and treatment reviewed with the patient. Questions answered. Dressing changed. May start daily dressing changes. non weight-bearing restrictions. Await culture sensitivities. Subjective Subjective Date/Time Seen: 02/19/23 08:08 Post Op day: 1 Principal diagnosis: Left foot infection Interval history: patient awake and alert. Pain controlled. Exam Const: General: healthy appearing; No in distress or confusion Orientation/consciousness: patient oriented x3 and No confusion HENMT: Head: normal to inspection, normocephalic and atraumatic Eyes: Conjunctivae: conjunctivae normal Sclera: sclerae normal Resp: Effort & Inspection: normal respiratory effort and no audible wheezes Neuro: General: patient oriented x3 and No confusion Extrem: Other: Left foot dressing changed. Incision clean dry and intact. Sanguinous drainage noted on the dressing but no active drainage at this time. Swelling improved. Negative Homans sign. Psych: Affect: normal affect Objective Data Vital Signs Vital Signs: Vital Signs - 24 hr 02/18/23 10:18 02/18/23 11:41 02/18/23 11:45 Temperature 98.1 F 97 F L Pulse Rate 66 59 L 59 L Respiratory Rate 16 12 12 Blood Pressure 102/62 122/65 114/66 Pulse Oximetry 100 100 100 Oxygen Delivery Room Air Simple Face Mask Simple Face Mask Oxygen Flow Rate 10 8 02/18/23 12:00 02/18/23 12:15 02/18/23 12:30 Temperature Pulse Rate 56 L 57 L 60 Respiratory Rate 12 12 15 Blood Pressure 102/63 111/72 106/68 Pulse Oximetry 100 95 99 Oxygen Delivery Room Air Room Air Room Air Oxygen Flow Rate 02/18/23 12:34 02/18/23 12:49 02/18/23 13:43 Temperature 97 F L 97.1 F L 97.1 F L Pulse Rate 105 H 67 69 Respiratory Rate 12 14 14 Blood Pressure 132/68 103/75 112/66 Pulse Oximetry 100 97 99 Oxygen Delivery Oxygen Flow Rate 02/18/23 14:45 02/18/23 18:48 02/18/23 20:10 Temperature 97.1 F L 97 F L 96.2 F L Pulse Rate 62 66 74 Respiratory Rate 16 16 18 Blood Pressure 116/77 116/71 104/67 Pulse Oximetry 100 100 97 Oxygen Delivery Oxygen Flow Rate 02/18/23 20:13 02/19/23 00:05 02/19/23 05:22 Temperature 96.2 F L 96.3 F L 96.0 F L Pulse Rate 74 77 66 Respiratory Rate 18 18 18 Blood Pressure 104/67 110/58 L 104/64 Pulse Oximetry 97 98 97 Oxygen Delivery Oxygen Flow Rate 02/19/23 05:25 Temperature 96.0 F L Pulse Rate 66 Respiratory Rate 18 Blood Pressure 104/67 Pulse Oximetry 97 Oxygen Delivery Oxygen Flow Rate Intake/Output Intake/Output: Intake & Output 02/16/23 02/17/23 02/18/23 02/19/23 23:59 23:59 23:59 23:59 Intake Total 1970 3095 540 490 Output Total 450 450 Balance 1520 3095 90 490 Meds/Results Medications: Active Medications Generic Name Dose Route Start Last Admin Trade Name Freq PRN Reason Stop Dose Admin Cyclobenzaprine HCl 5 mg 02/15/23 14:13 Cyclobenzaprine Hcl 5 Mg Tablet PO QHS PRN Muscle Spasm Furosemide 40 mg 02/16/23 09:00 02/18/23 09:20 Furosemide 40 Mg Tablet PO Not Given DAILY PAT Gabapentin 600 mg 02/15/23 17:00 02/18/23 16:59 Gabapentin 300 Mg Capsule PO 600 mg TID PAT Administration Cefepime HCl 2 gm in 50 mls @ 100 mls/hr 02/16/23 00:00 02/18/23 23:35 Maxipime 2 Gm/Ns 50 Ml IVPB Infused Q12H PAT Infusion Vancomycin HCl 1,500 mg in 500 mls @ 250 mls/hr 02/16/23 09:00 02/18/23 15:07 Vancomycin 1,500 Mg/D5w 500 Ml IVPB Not Given
[2023-02-19] MEDS: MORPHINE SULFATE (*CRX) 2 MG/ML INJ IV PUSH ×4 (08:14→20:52)
[2023-02-19] MEDS: GABAPENTIN 300 MG CAPSULE 600 MG PO ×3 (09:31→16:41)
--- NOTE | 2023-02-19 11:46 | WPDPN ---
Progress Note: A&P Assessment and Plan (1) Post op infection: Qualifiers: Encounter type: subsequent encounter Postoperative infection type: deep incisional surgical site Qualified Code(s): T81.42XD - Infection following a procedure, deep incisional surgical site, subsequent encounter Code(s): T81.40XA - Infection following a procedure, unspecified, initial encounter Status: Acute (2) Chronic kidney disease, stage 3: Code(s): N18.30 - Chronic kidney disease, stage 3 unspecified Status: Acute (3) Chronic anemia: Code(s): D64.9 - Anemia, unspecified Status: Acute (4) Thrombocytopenia: Code(s): D69.6 - Thrombocytopenia, unspecified Status: Acute (5) Chronic hyponatremia: Code(s): E87.1 - Hypo-osmolality and hyponatremia Status: Acute (6) Alcoholic cirrhosis of liver: Qualifiers: Ascites presence: with ascites Qualified Code(s): K70.31 - Alcoholic cirrhosis of liver with ascites Code(s): K70.30 - Alcoholic cirrhosis of liver without ascites Status: Acute Plan The patient presented to the emergency department today for evaluation of redness, swelling, and drainage at the site of a recent left foot operation as per HPI. Labs, imaging, EKG, and all reports were personally reviewed. He has been started on vancomycin given history of MRSA, pending wound culture. Dr. Negron was consulted and he recommends wound care consult and close monitoring as he may require operative debridement or further surgery. Analgesics are available as needed. He has chronic thrombocytopenia and anemia, likely related to his chronic diseases, and his numbers look stable. He also has chronic hyponatremia which is stable. Total bilirubin is a bit elevated though he has chronic cirrhosis and this appears unchanged from previous labs. Abdominal exam is benign without evidence of ascites or acute decompensation. His home medications will be reviewed and resumed as appropriate. 02/19/2023 interval history:?patient with surgical wound s/p amputation of 2nd and 3rd Lt toes 11 days, on 02/16 was seen by his surgeon recommended conservative management with IV abx, and if there is no improvement, 0n 02/17? surgeon recommended need for? surgical debriedment or surgical intervention, and patient is agreeable, on 02/18 patient was taken to OR and had left foot transmetatarsal amputation, POD #1,wound culture is growing staph, being treated with Cefepime and vancomycin, pending identification and sensitive, patient stats pain is little better, Patient will need PT and will benefit from rehab, will continue to monitor and further recommendation to follow, Subjective Date/time seen: 02/19/23 11:46 Interval history: 02/19/2023 interval history:?patient with surgical wound s/p amputation of 2nd and 3rd Lt toes 11 days, on 02/16 was seen by his surgeon recommended conservative management with IV abx, and if there is no improvement, 0n 02/17? surgeon recommended need for? surgical debriedment or surgical intervention, and patient is agreeable, on 02/18 patient was taken to OR and had left foot transmetatarsal amputation, POD #1,wound culture is growing staph, being treated with Cefepime and vancomycin, pending identification and sensitive, patient stats pain is little better, Patient will need PT and will benefit from rehab, will continue to monitor and further recommendation to follow, Review of Systems Review of Systems: Twelve systems were reviewed and are negative except for as per HPI. Exam Narrative: Patient is comfortable, NAD HEENT: eyes are clear and none icteric LUNGS: Normal respiratory effort ABD: Distended Lower extremities: no edema SKIN: nonjaundiced, left foot s/p amputation of 2nd and 3rd toes erythema induration along distal metacarpal, no drainage Neuro: grossly intact. Objective Data Vital Signs Vital Signs: Vital Signs - 24 hr 02/18/23 12:00
[2023-02-19] MEDS: CEFEPIME 2 GM/NS 50 ML 2 GM/50 ML BAG IVPB (12:17)
[2023-02-20] MEDS: MORPHINE SULFATE (*CRX) 2 MG/ML INJ IV PUSH (00:19)
[2023-02-20] MEDS: CEFEPIME 2 GM/NS 50 ML 2 GM/50 ML BAG IVPB ×2 (00:19→12:19)
[2023-02-20 02:00] LABS: Hematocrit 30.4 % (42.0-52.0); Immature Platelet Fraction Pct 2.1 % (0.9-11.2); Mean Corpuscular HGB Conc 32.9 g/dl (32-36); Mean Corpuscular Hemoglobin 30.5 pg (26-34); Mean Corpuscular Volume 92.7 fl (80-100); Mean Platelet Volume 9.3 fl (7.4-10.4); Platelet Count Result 109 k/mm3 (150-375); Red Blood Count 3.28 M/mm3 (4.6-6.20); Red Cell Distribution Width 15.7 % (11.5-14.5)
[2023-02-20 02:11] LABS: Anion Gap 3 mmol/L (8-16); Blood Urea Nitrogen 16 mg/dL (9-20); Calcium 8.2 mg/dL (8.4-10.2); Carbon Dioxide 31 mmol/L (22-30); Chloride 99 mmol/L (98-107); Estimated CRCL calculation 84 ml/min; Estimated Glomerular Filt Rate > 60; Glucose 120 mg/dL (65-110); Magnesium 2.2 mg/dL (1.6-2.3); Potassium 3.7 mmol/L (3.4-5.0); Sodium 133 mmol/L (137-145)
[2023-02-20 02:35] LABS: Vancomycin Trough 18.6 ug/mL (10.0-20.0)
[2023-02-20 04:51] VITALS: BP 110/57; PULSE 60; RESP 20; TEMP 35.9; O2SAT 96
[2023-02-20 08:00] VITALS: PULSE 80; RESP 20; O2SAT 96
[2023-02-20 08:23] VITALS: PULSE 80
[2023-02-20] MEDS: GABAPENTIN 300 MG CAPSULE 600 MG PO ×2 (08:23→12:19)
[2023-02-20] MEDS: SENNA/DOCUSATE SODIUM TABLET 2 TAB PO (08:23)
[2023-02-20] MEDS: FUROSEMIDE 40 MG TABLET PO (08:23)
[2023-02-20] MEDS: THIAMINE HCL 100 MG TABLET 200 MG PO (08:23)
[2023-02-20] MEDS: nadoloL 20 MG TABLET 40 MG PO (08:23)
[2023-02-20] MEDS: PANTOPRAZOLE 40 MG TABLET PO (08:23)
[2023-02-20] MEDS: SPIRONOLACTONE 50 MG TABLET 100 MG PO (08:24)
[2023-02-20 13:58] VITALS: BP 106/61; PULSE 65; RESP 18; TEMP 36.5; O2SAT 100
--- NOTE | 2023-02-20 14:14 | PM.PNORT ---
Progress Note: A&P Assessment and Plan (1) Post op infection: Qualifiers: Encounter type: subsequent encounter Postoperative infection type: deep incisional surgical site Qualified Code(s): T81.42XD - Infection following a procedure, deep incisional surgical site, subsequent encounter Code(s): T81.40XA - Infection following a procedure, unspecified, initial encounter Status: Acute Assessment and Plan: Postoperative day 2 left transmetatarsal amputation. Operative findings and treatment reviewed with the patient. Questions answered. Dressing changed. May start daily dressing changes. non weight-bearing restrictions unable to be complied with. Foot with fracture boot. May place partial weight on the heel. culture sensitivities show MRSA. blood cultures remain negative. Subjective Subjective Date/Time Seen: 02/20/23 14:14 Post Op day: 2 Principal diagnosis: Left foot infection Interval history: Patient awake and alert. Pain controlled. working with therapy. Exam Const: General: healthy appearing, well developed, alert and awake; No in distress or confusion Orientation/consciousness: patient oriented x3 and No confusion HENMT: Head: normal to inspection, normocephalic and atraumatic Eyes: Conjunctivae: conjunctivae normal Sclera: sclerae normal Neck: Neck: supple and nontender Chest: Chest palpation & inspection: normal inspection of the chest Resp: Effort & Inspection: normal respiratory effort and no audible wheezes Cardio: Rate: regular rate Rhythm: regular rhythm Neuro: General: patient oriented x3 and No confusion Extrem: General: capillary refill normal Right upper extremity: normal to inspection Left upper extremity: normal to inspection Right lower extremity: normal to inspection, hip/thigh Details: normal to inspection, knee Details: normal to inspection and knee ligament exam normal, lower leg Details: pitting edema Details: 2+ and ecchymosis, ankle Details: normal ROM and ecchymosis (improved ) and foot Details: toes with normal ROM, ecchymosis (improved ), vascular exam Details: dorsalis pedis pulse present and normal capillary refill and motor-sensory exam Details: light-touch abnormal Location: in all toes Left lower extremity: hip/thigh Details: normal to inspection, knee Details: normal to inspection and knee ligament exam normal Details: anterior drawer test normal, valgus stress test normal, varus stress test normal and Justin's test normal, lower leg Details: no localized swelling, ankle (no calf tenderness) Details: normal to inspection and normal ROM; no tenderness and no swelling and foot Details: normal capillary refill, tenderness, toes with normal ROM, vascular exam Details: dorsalis pedis pulse present and normal capillary refill and motor-sensory exam light-touch abnormal in all toes Other: Left foot dressing changed. Incision clean dry and intact. Sanguinous drainage noted on the dressing but no active drainage. Swelling Left foot. Negative Homans sign. Objective Data Vital Signs Vital Signs: Vital Signs - 24 hr 02/19/23 19:51 02/19/23 20:00 02/20/23 04:51 Temperature 97.1 F L 96.6 F L Pulse Rate 69 69 60 Respiratory Rate 18 18 20 Blood Pressure 122/63 110/57 L Pulse Oximetry 99 99 96 Oxygen Delivery Room Air 02/20/23 08:23 02/20/23 08:00 02/20/23 13:58 Temperature 97.7 F Pulse Rate 80 80 65 Respiratory Rate 20 18 Blood Pressure 106/61 Pulse Oximetry 96 100 Oxygen Delivery Room Air Intake/Output Intake/Output: Intake & Output 02/17/23 02/18/23 02/19/23 02/20/23 23:59 23:59 23:59 23:59 Intake Total 3095 540 2960 1420 Output Total 450 Balance 3095 90 2960 1420 Meds/Results Medications: Active Medications Generic Name Dose Route Start Last Admin Trade Name Freq PRN Reason Stop Dose Admin Cyclobenzaprine HCl 5 mg 02/15/23 14:13 Cyclobenzaprine Hcl 5 Mg Tablet PO QHS PRN Mus
--- NOTE | 2023-02-20 15:31 | PM.DS ---
DS: Admitting Diagnosis Discharge Date 02/20/2023 Admitting Diagnosis Swelling and drainage from recent operative site on left foot. DS: Discharge Diagnosis Discharge Diagnosis (1) Post op infection: Qualifiers: Encounter type: subsequent encounter Postoperative infection type: deep incisional surgical site Qualified Code(s): T81.42XD - Infection following a procedure, deep incisional surgical site, subsequent encounter Code(s): T81.40XA - Infection following a procedure, unspecified, initial encounter Status: Acute (2) Chronic kidney disease, stage 3: Code(s): N18.30 - Chronic kidney disease, stage 3 unspecified Status: Acute (3) Chronic anemia: Code(s): D64.9 - Anemia, unspecified Status: Acute (4) Thrombocytopenia: Code(s): D69.6 - Thrombocytopenia, unspecified Status: Acute (5) Chronic hyponatremia: Code(s): E87.1 - Hypo-osmolality and hyponatremia Status: Acute (6) Alcoholic cirrhosis of liver: Qualifiers: Ascites presence: with ascites Qualified Code(s): K70.31 - Alcoholic cirrhosis of liver with ascites Code(s): K70.30 - Alcoholic cirrhosis of liver without ascites Status: Acute Plan The patient presented to the emergency department today for evaluation of redness, swelling, and drainage at the site of a recent left foot operation as per HPI. Labs, imaging, EKG, and all reports were personally reviewed. He has been started on vancomycin given history of MRSA, pending wound culture. Dr. Negron was consulted and he recommends wound care consult and close monitoring as he may require operative debridement or further surgery. Analgesics are available as needed. He has chronic thrombocytopenia and anemia, likely related to his chronic diseases, and his numbers look stable. He also has chronic hyponatremia which is stable. Total bilirubin is a bit elevated though he has chronic cirrhosis and this appears unchanged from previous labs. Abdominal exam is benign without evidence of ascites or acute decompensation. His home medications will be reviewed and resumed as appropriate. 02/19/2023 interval history:?patient with surgical wound s/p amputation of 2nd and 3rd Lt toes 11 days, on 02/16 was seen by his surgeon recommended conservative management with IV abx, and if there is no improvement, 0n 02/17? surgeon recommended need for? surgical debriedment or surgical intervention, and patient is agreeable, on 02/18 patient was taken to OR and had left foot transmetatarsal amputation, POD #1,wound culture is growing staph, being treated with Cefepime and vancomycin, pending identification and sensitive, patient stats pain is little better, Patient will need PT and will benefit from rehab, will continue to monitor and further recommendation to follow, DS: Summary Hospital Course Reason for hospitalization: Chief Complaint: Swelling and drainage from recent operative site on left foot. Narrative: This is a 62-year-old male with history of MRSA infection, hypertension, paroxysmal atrial fibrillation, chronic kidney disease, gastroesophageal reflux disease, and alcoholic cirrhosis of liver (abstained from alcohol since July 2020) who presented to the emergency department via private vehicle for evaluation of swelling and drainage from recent operative site on left foot. He has a history of previous necrotizing fasciitis of the left foot resulting in amputation of the 2nd and 3rd toes and 11 days ago he underwent hallux reconstruction and removal of exostosis from the left forefoot. The last 3 days he has had increasing pain and swelling in the foot and ankle and he now has drainage coming from the incision site. He denies fever, chills, sweats, nausea, and vomiting. Hospital Course: ?patient with surgical wound s/p amputation of 2nd and 3rd Lt toes 11 days, on 02/16 was seen by his surgeon recommended conservative management with IV abx, and if there is
== END 2023-02-20 17:25 | disposition home or self-care (01) | DRG 857 ==
LOC: ANHED 11:26 → ANH3MEDSUR 12:09 → ANH2MED 12:40
PROVIDERS: Orthopaedic Surgery; Physician Assistant; Admitting Provider Internal Medicine; Emergency Provider Physician Assistant; PCP Physician Assistant; Visit Provider Family Medicine
PROC: 0Y6N0Z9 Detachment at Left Foot, Partial 1st Ray, Open Approach (ICD-10-PCS; CPT 28805; principal; 2023-02-18 10:15)
DX: T81.42XA Infection following a procedure, deep incisional surgical site, initial encounter (principal); E87.1 Hypo-osmolality and hyponatremia; L02.612 Cutaneous abscess of left foot; B95.61 Methicillin susceptible Staphylococcus aureus infection as the cause of diseases classified elsewhere; M20.12 Hallux valgus (acquired), left foot; L97.529 Non-pressure chronic ulcer of other part of left foot with unspecified severity; I12.9 Hypertensive chronic kidney disease with stage 1 through stage 4 chronic kidney disease, or unspecified chronic kidney disease; N18.30 Chronic kidney disease, stage 3 unspecified; D69.6 Thrombocytopenia, unspecified; K70.31 Alcoholic cirrhosis of liver with ascites; D63.8 Anemia in other chronic diseases classified elsewhere; K21.9 Gastro-esophageal reflux disease without esophagitis; I48.0 Paroxysmal atrial fibrillation; G62.9 Polyneuropathy, unspecified; E66.9 Obesity, unspecified; Z68.30 Body mass index [BMI] 30.0-30.9, adult
CPT/HCPCS: 36415; 73590; 73630; 80048; 80053; 80202; 81001; 83605; 83735; 85025; 85027; 85055; 85652; 86140; 87040; 87070; 87147; 87181; 87186; 87205; 88305; 88311; 96361; 96365; 96366; 96375; 97116; 97161; 97165; 97535; 99199; 99285; A9270; G0378; J0692; J1100; J1170; J2250; J2270; J2371; J2405; J2704; J3010; J3370; J7030; J7120

== ENCOUNTER 2023-03-26 07:16 | Outpatient (RCR) | payer OTHER, SELFPAY ==
[2023-01-01 00:04] VITALS: BMI 26.0
--- NOTE | 2023-01-01 08:39 | P.PNOP_ITS ---
Subjective Subjective Date/Time Seen: 01/01/23 08:39
--- NOTE | 2023-01-01 08:39 | PM.PNORT ---
Subjective Subjective Date/Time Seen: 01/01/23 08:39
--- NOTE | 2023-01-01 09:08 | PM.IMHP ---
H&P: HPI History of Present Illness Date/Time: 01/01/23 09:08 Chief Complaint: Left Hallux Ulcer Narrative: 62 year old male returns to the [facility] wound clinic today for reevaluation due to recurrent left hallux ulcer. Patient has been started on daily dressing changes once again with silver gel and silver foam. Patient was instructed to go to [facility] ER last week due to concerns of worsening liver failure. He contacted his liver specialist after his [facility] wound clinic appt who sent him for labs. He was not admitted to the hospital or evaluated in the ED. He was instructed to follow up with them as an outpatient as well as a kidney doctor. We do not have these labs for review today, will request. We contacted the patient the day following his appointment to check on him at which point we ordered a LLE doppler for further evaluation of his ankle swelling. LLE Doppler negative. Patient follows up today for reevaluation. Review of Systems Review of Systems: All systems reviewed & are unremarkable except as noted in HPI and below PMFSH Past Medical History Medical History Abrasion, knee Abscess of foot including toes Alcoholic cirrhosis of liver He has abstained from alcohol for at least 2 years as of July 2020. Cirrhosis Essential hypertension Fall Gastroesophageal reflux disease Hyponatremia Left ankle pain Left leg swelling Necrotizing fasciitis of ankle and foot Neuropathy Pain in left lower leg Paroxysmal atrial fibrillation Surgical History Surgical History History of surgery on arm (~2012) ORIF right humerus fracture. History of surgery on wrist History of ventral hernia repair (~11/2013) Subsequent abdominal wall exploration with drainage of a seroma at the same site in 03/2014. Family History Family History Mother Hypertension Family history of diabetes mellitus in first degree relative Diabetes mellitus Father Family history of pancreatic cancer Social History Social History Social History: The patient lives alone in [place]. Retired from [employer]. He has a longstanding history of alcohol abuse. He also endorses marijuana use intermittently in a social setting. He designates his daughter Shawna as his surrogate decision maker and wishes to be a full code. Smoking status: Never smoker Alcohol intake: former Drinks per week: 1 Alcohol use details: QUIT EXCESSIVE ETOH 2017 Substance use: current Substance use type: marijuana Other substance usage details: EDIBLES, SMOKES MARIJUANA Last use: 12/27/20 Lack of Transportation: No Lack of Food: Never True Current Housing: I Have Housing Concerned About Future Housing: No Difficulty Paying Gas/Electric Bills: No Difficulty Paying for Meds: No Currently Unemployed: No Education: High School Diploma/GED Difficulty w/ Childcare or Family Care: No Living arrangements: alone Occupation/Education: retired Gender identity (if verbalized by the patient): Male Sexual Orientation (if Verbalized by the Patient): Straight or Heterosexual Spiritual care concerns: No Meds Home Medications and Allergies Home Medications Medication Instructions Recorded Confirmed Type omeprazole 20 mg capsule,delayed 40 mg PO BID 08/19/19 08/31/22 History release thiamine HCl (vitamin B1) 250 mg 250 mg PO DAILY 08/19/19 08/31/22 History tablet ciprofloxacin HCl 500 mg tablet 500 mg PO DAILY 08/09/21 08/31/22 History nadolol 20 mg tablet 20 mg PO DAILY 08/09/21 08/31/22 History sildenafil 100 mg tablet 100 mg PO DAILY PRN sexual 02/13/22 08/31/22 Rx activity #8 tabs meloxicam 15 mg tablet 15 mg PO DAILY #90 tabs 08/28/22 08/31/22 Rx furosemide 40 mg tablet 40 mg PO DAILY 08/29/22 08/31/22 History spironolactone
--- NOTE | 2023-01-15 13:22 | PM.IMHP ---
H&P: HPI History of Present Illness Date/Time: 01/15/23 13:22 Chief Complaint: Left Hallux Ulcer Narrative: 62 year old male returns to the [facility] wound clinic today for reevaluation due to recurrent left hallux ulcer. Patient has been started on daily dressing changes once again with silver gel and silver foam. LLE doppler for further evaluation of his ankle swelling. LLE Doppler negative. Patient follows up today for reevaluation. States no new complaints. Denies fever or chills. Review of Systems Review of Systems: All systems reviewed & are unremarkable except as noted in HPI and below Neurologic: Denies confusion Psychiatric: Psychiatric: Denies confusion [facility] Past Medical History Medical History (Updated 01/15/23 @ 13:24 by Blair Negron MD) Abrasion, knee Abscess of foot including toes Acquired hallux valgus of left foot Alcoholic cirrhosis of liver He has abstained from alcohol for at least 2 years as of July 2020. Cirrhosis Essential hypertension Exostosis of left foot Fall Gastroesophageal reflux disease Hyponatremia Left ankle pain Left leg swelling Necrotizing fasciitis of ankle and foot Neuropathy Pain in left lower leg Paroxysmal atrial fibrillation Surgical History Surgical History History of surgery on arm (~2012) ORIF right humerus fracture. History of surgery on wrist History of ventral hernia repair (~11/2013) Subsequent abdominal wall exploration with drainage of a seroma at the same site in 03/2014. Family History Family History Mother Hypertension Family history of diabetes mellitus in first degree relative Diabetes mellitus Father Family history of pancreatic cancer Social History Social History Social History: The patient lives alone in [place]. Retired from [employer]. He has a longstanding history of alcohol abuse. He also endorses marijuana use intermittently in a social setting. He designates his daughter Shawna as his surrogate decision maker and wishes to be a full code. Smoking status: Never smoker Alcohol intake: former Drinks per week: 1 Alcohol use details: QUIT EXCESSIVE ETOH 2017 Substance use: current Substance use type: marijuana Other substance usage details: EDIBLES, SMOKES MARIJUANA Last use: 12/27/20 Lack of Transportation: No Lack of Food: Never True Current Housing: I Have Housing Concerned About Future Housing: No Difficulty Paying Gas/Electric Bills: No Difficulty Paying for Meds: No Currently Unemployed: No Education: High School Diploma/GED Difficulty w/ Childcare or Family Care: No Living arrangements: alone Occupation/Education: retired Gender identity (if verbalized by the patient): Male Sexual Orientation (if Verbalized by the Patient): Straight or Heterosexual Spiritual care concerns: No Meds Home Medications and Allergies Home Medications Medication Instructions Recorded Confirmed Type omeprazole 20 mg capsule,delayed 40 mg PO BID 08/19/19 08/31/22 History release thiamine HCl (vitamin B1) 250 mg 250 mg PO DAILY 08/19/19 08/31/22 History tablet ciprofloxacin HCl 500 mg tablet 500 mg PO DAILY 08/09/21 08/31/22 History nadolol 20 mg tablet 20 mg PO DAILY 08/09/21 08/31/22 History sildenafil 100 mg tablet 100 mg PO DAILY PRN sexual 02/13/22 08/31/22 Rx activity #8 tabs meloxicam 15 mg tablet 15 mg PO DAILY #90 tabs 08/28/22 08/31/22 Rx furosemide 40 mg tablet 40 mg PO DAILY 08/29/22 08/31/22 History spironolactone 100 mg tablet 100 mg PO DAILY 08/29/22 08/31/22 History gabapentin 600 mg tablet 600 mg PO TID #270 tabs 10/02/22 Rx cyclobenzaprine 5 mg tablet 5 mg PO QHS PRN Muscle Spasm #30 12/28/22 Rx tabs Allergies Allergy/AdvReac Type Severity Reaction Status Date / Time No Known Allergies Al
--- NOTE | 2023-01-15 13:26 | P.OP_ITS ---
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 Devitalized tissue noted. Indicated for debridement. Findings ulcer 2 cm total in length with 6 mm with and 5 mm depth. lateral foot 8 mm diameter Description of Procedure After informed consent the left foot was prepped with a alcohol prep solution. 15 blade knife used to sharply excise skin, subcutaneous tissue and muscle from the plantar aspect of the foot And hallux. Devitalized tissue sharply excised and passed off. Bleeding controlled with pressure. Irrigated after debridement. Sterile dressing applied. Estimated Blood Loss 2 Tourniquet Time 0 Drains No Packing Yes Pathology None sent Complications None Condition Stable Disposition Other G Billing Surgery - Charge Forward: Surgery Billing ([id number]- Left)
--- NOTE | 2023-02-08 09:00 | PM.PNORT ---
Progress Note: A&P Assessment and Plan (1) Acquired hallux valgus of left foot: Code(s): M20.12 - Hallux valgus (acquired), left foot Status: Acute Assessment and Plan: Postoperative day 4. Cast removed. Start dressing changes with Mepilex foam. Fracture boot for protected weight-bearing. May wash. Work on edema control with elevation and compression. Follow-up in 2 weeks for re-evaluation. (2) Exostosis of left foot: Code(s): M89.8X7 - Other specified disorders of bone, ankle and foot Status: Acute Subjective Subjective Date/Time Seen: 02/08/23 09:00 Post Op day: 4 ( Left hallux and forefoot reconstruction) Principal diagnosis: neuropathic ulcer Interval history: 4 days status post left hallux and forefoot surgery. Total contact cast. Denies any new complaints. Exam Const: General: well developed, alert and awake; No confusion Orientation/consciousness: No confusion Neck: Neck: supple and nontender Chest: Chest palpation & inspection: normal inspection of the chest Resp: Effort & Inspection: normal respiratory effort and no audible wheezes Cardio: Rate: regular rate Rhythm: regular rhythm Neuro: General: No confusion Extrem: General: capillary refill normal Right upper extremity: normal to inspection Left upper extremity: normal to inspection Right lower extremity: normal to inspection, hip/thigh Details: normal to inspection, knee Details: normal to inspection and knee ligament exam normal, lower leg Details: pitting edema Details: 2+ and ecchymosis, ankle Details: normal ROM and ecchymosis (improved ) and foot Details: toes with normal ROM, ecchymosis (improved ), vascular exam Details: dorsalis pedis pulse present and normal capillary refill and motor-sensory exam Details: light-touch abnormal Location: in all toes Left lower extremity: hip/thigh Details: normal to inspection, knee Details: normal to inspection and knee ligament exam normal Details: anterior drawer test normal, valgus stress test normal, varus stress test normal and Justin's test normal, lower leg Details: no localized swelling, ankle (no calf tenderness) Details: normal to inspection and normal ROM; no tenderness and no swelling and foot Details: normal capillary refill, tenderness, toes with normal ROM, vascular exam Details: dorsalis pedis pulse present and normal capillary refill and motor-sensory exam light-touch abnormal in all toes Other: Cast removed. Ulcer on the plantar aspect of the left hallux Measures 1.0x0.4x0.2 cm, 100% red/pink wound bed. No malodor. No signs of infection. Ulcer on the plantar aspect of the 4th MTP joint closed. Incision on the hallux clean dry and intact. Incision over the dorsum of the forefoot clean dry and intact. Small abrasion on the posterior upper thigh where the cast rubbed with the knee flexed. No signs of infection. Psych: Affect: normal affect Objective Data Meds/Results Medications: Active Medications Generic Name Dose Route Start Last Admin Trade Name Freq PRN Reason Stop Dose Admin Silver 1 each 01/01/23 12:55 Silver Foam Band (Mepilex Ag 4x4) Bandage TOPICAL 04/03/23 23:55 PRN PRN Wound Care [facility] Follow-up Billing Hospital Follow-up Hospital Follow-up: [id number] Post-op Follow Up
--- NOTE | 2023-02-15 07:59 | PCWOUND ---
[facility] called [facility] at 0741 this morning. Patient states his post-op wound to left foot is very swollen and there is increased drainage coming from his incisions. Per conversation with technical data analyst, patient was instructed to go to the ED to be assessed. Patient verbalized understanding and agreeable. Called Dr. Negron's office to inform them. Dr. Negron not in the building. Made them aware that patient was instructed to go to ED.
--- NOTE | 2023-03-12 09:01 | PM.PNORT ---
Progress Note: A&P Assessment and Plan (1) Status post transmetatarsal amputation of left foot: Code(s): Z89.432 - Acquired absence of left foot Status: Acute Assessment and Plan: 3 weeks left foot transmetatarsal amputation. Sutures removed today. No signs of infection. He has completed his course of antibiotics. Continue with daily dressing change with transfer. Continue hand washing until next week then may start to shower. Continue fracture boot for offloading. Follow up with wound clinic in 1 week, Orthopedic Clinic in 4 weeks. Subjective Subjective Date/Time Seen: 03/12/23 09:01 Post Op day: 22 days Principal diagnosis: Left transmetatarsal amputation Interval history: 3 weeks status post left transmetatarsal amputation. Daily dressing changes with transfer. No interim complaints. Exam Extrem: Right lower extremity: normal to inspection, hip/thigh Details: normal to inspection, knee Details: normal to inspection and knee ligament exam normal, lower leg Details: pitting edema Details: 2+ and ecchymosis, ankle Details: normal ROM and ecchymosis (improved ) and foot Details: toes with normal ROM, ecchymosis (improved ), vascular exam Details: dorsalis pedis pulse present and normal capillary refill and motor-sensory exam Details: light-touch abnormal Location: in all toes Left lower extremity: hip/thigh Details: normal to inspection, knee Details: normal to inspection and knee ligament exam normal Details: anterior drawer test normal, valgus stress test normal, varus stress test normal and Justin's test normal, lower leg Details: no localized swelling, ankle (no calf tenderness) Details: normal to inspection and normal ROM; no tenderness and no swelling and foot Details: normal capillary refill, tenderness, toes with normal ROM, vascular exam Details: dorsalis pedis pulse present and normal capillary refill and motor-sensory exam light-touch abnormal in all toes Other: Left foot dressing removed. some drainage from the incision noted. Sutures intact. Wound measures 13X1X0.5cm Ulcer on the plantar aspect of the 4th MTP joint closed. swelling of the foot but overall swelling of the leg improved. No erythema. Objective Data Meds/Results Medications: Active Medications Generic Name Dose Route Start Last Admin Trade Name Freq PRN Reason Stop Dose Admin Silver 1 each 01/01/23 12:55 Silver Foam Band (Mepilex Ag 4x4) Bandage TOPICAL 04/03/23 23:55 PRN PRN Wound Care [facility] Follow-up Hospital Follow-up: [id number] Post-op Follow Up
== END 2023-04-01 23:59 | disposition home or self-care (01) ==
LOC: ANHWOC 07:16
PROVIDERS: PCP Physician Assistant; Referring Provider Nurse Practitioner Family; Visit Provider Orthopaedic Surgery
DX: L97.529 Non-pressure chronic ulcer of other part of left foot with unspecified severity (principal); S91.302D Unspecified open wound, left foot, subsequent encounter
CPT/HCPCS: 99213; G0463; L2116

== ENCOUNTER 2023-06-04 07:15 | Outpatient (RCR) | payer OTHER, SELFPAY ==
[2023-04-02 00:03] VITALS: BMI 26.0
--- NOTE | 2023-04-16 08:42 | PM.PNORT ---
Progress Note: A&P Assessment and Plan (1) Status post transmetatarsal amputation of left foot: Code(s): Z89.432 - Acquired absence of left foot Status: Acute Assessment and Plan: 8 weeks left foot transmetatarsal amputation. Wound significantly improved. Small central area with good granulation remains. Continue with daily dressing changes. Continue with offloading. Follow up with wound clinic weekly. Follow up with Orthopedics in 1 month. Subjective Subjective Date/Time Seen: 04/16/23 08:42 Post Op day: 8 weeks Principal diagnosis: left transmetatarsal amputation Interval history: 2 months status post left transmetatarsal amputation with wound dehiscence. Continue dressing changes. No interim complaints. Exam Extrem: Right lower extremity: normal to inspection, hip/thigh Details: normal to inspection, knee Details: normal to inspection and knee ligament exam normal, lower leg Details: pitting edema Details: 2+ and ecchymosis, ankle Details: normal ROM and ecchymosis (improved ) and foot Details: toes with normal ROM, ecchymosis (improved ), vascular exam Details: dorsalis pedis pulse present and normal capillary refill and motor-sensory exam Details: light-touch abnormal Location: in all toes Left lower extremity: hip/thigh Details: normal to inspection, knee Details: normal to inspection and knee ligament exam normal Details: anterior drawer test normal, valgus stress test normal, varus stress test normal and Justin's test normal, lower leg Details: no localized swelling, ankle (no calf tenderness) Details: normal to inspection and normal ROM; no tenderness and no swelling and foot Details: normal capillary refill, tenderness, toes with normal ROM, vascular exam Details: dorsalis pedis pulse present and normal capillary refill and motor-sensory exam light-touch abnormal in all toes Other: Left foot dressing removed. Wound improved. Small open area in the central measures 1 by 0.2 x 0.2 cm. No active drainage or erythema. Objective Data Meds/Results Medications: Active Medications Generic Name Dose Route Start Last Admin Trade Name Freq PRN Reason Stop Dose Admin Clotrimazole 1 applic 04/09/23 09:08 Betamethasone/Clotrimazole Cr 15 Gm Tube TOPICAL 07/09/23 23:55 PRN PRN Wound Care Silver Nitrate 1 applic 04/02/23 13:58 Silvergel (Elta) 45 Ml TOPICAL 07/02/23 23:55 PRN PRN Wound Care Wound Care/Dressing Products 1 patch 04/02/23 13:59 Mepilex Transfer Drsg 6x8 TOPICAL 07/02/23 23:55 PRN PRN Wound Care
--- NOTE | 2023-04-23 09:06 | P.PNOP_ITS ---
Progress Note: A&P Assessment and Plan (1) Status post transmetatarsal amputation of left foot: Code(s): Z89.432 - Acquired absence of left foot Status: Acute Assessment and Plan: 9 weeks s/p left foot transmetatarsal amputation. Wound significantly improved. Small central area with good granulation remains. Continue with daily dressing changes. Continue with offloading. Follow up with wound clinic weekly. Follow up in 2 weeks. Patient requires custom fabricated orthosis. The patient is unable to be fit with a pre fabricated orthosis. Patient's condition is expected duration of greater than 1 year. Due to the patients orthopedic status with bone and soft tissue deformity, weakness, neurologic involvement custom fabricating is necessary to prevent tissue injury. The patient requires a custom orthosis for the above condition. Prescription to [facility] given today. Subjective Subjective Date/Time Seen: 04/23/23 09:06 Post Op day: 9 weeks Principal diagnosis: left transmetatarsal amputation Interval history: 2 months status post left transmetatarsal amputation with wound dehiscence. Continue dressing changes. No interim complaints. Review of Systems Review of Systems: All systems reviewed & are unremarkable except as noted in HPI and below Neurologic: Denies confusion Psychiatric: Psychiatric: Denies confusion Exam Extrem: Right lower extremity: normal to inspection, hip/thigh Details: normal to inspection, knee Details: normal to inspection and knee ligament exam normal, lower leg Details: pitting edema Details: 2+ and ecchymosis, ankle Details: normal ROM and ecchymosis (improved ) and foot Details: toes with normal ROM, ecchymosis (improved ), vascular exam Details: dorsalis pedis pulse present and normal capillary refill and motor-sensory exam Details: light-touch abnormal Location: in all toes Left lower extremity: hip/thigh Details: normal to inspection, knee Details: normal to inspection and knee ligament exam normal Details: anterior drawer test normal, valgus stress test normal, varus stress test normal and Justin's test normal, lower leg Details: no localized swelling, ankle (no calf tenderness) Details: normal to inspection and normal ROM; no tenderness and no swelling and foot Details: normal capillary refill, tenderness, toes with normal ROM, vascular exam Details: dorsalis pedis pulse present and normal capillary refill and motor-sensory exam light-touch abnormal in all toes Other: Left foot dressing removed. Wound improved. Small open area in the central measures 0.3x1.8x0.2cm cm. No active drainage or erythema. Objective Data Meds/Results Medications: Active Medications Generic Name Dose Route Start Last Admin Trade Name Freq PRN Reason Stop Dose Admin Clotrimazole 1 applic 04/09/23 09:08 Betamethasone/Clotrimazole Cr 15 Gm Tube TOPICAL 07/09/23 23:55 PRN PRN Wound Care Silver Nitrate 1 applic 04/02/23 13:58 Silvergel (Elta) 45 Ml TOPICAL 07/02/23 23:55 PRN PRN Wound Care Wound Care/Dressing Products 1 patch 04/02/23 13:59 Mepilex Transfer Drsg 6x8 TOPICAL 07/02/23 23:55 PRN PRN Wound Care
--- NOTE | 2023-05-07 09:16 | P.PNOP_ITS ---
Progress Note: A&P Assessment and Plan (1) Status post transmetatarsal amputation of left foot: Code(s): Z89.432 - Acquired absence of left foot Status: Acute Assessment and Plan: 11 weeks s/p left foot transmetatarsal amputation. Wound closed. Maceration on the dorsum of the midfoot, continue Lotrisone. Awaiting custom inserts. Fabrication to begin Saturday. Follow up in 1 month. Subjective Subjective Date/Time Seen: 05/07/23 09:16 Post Op day: 11 weeks Principal diagnosis: left transmetatarsal amputation Interval history: 11 weeks status post left transmetatarsal amputation with wound dehiscence. Con tinue dressing changes. No interim complaints. Review of Systems Review of Systems: All systems reviewed & are unremarkable except as noted in HPI and below Neurologic: Denies confusion Psychiatric: Psychiatric: Denies confusion Exam Extrem: Right lower extremity: normal to inspection, hip/thigh Details: normal to inspection, knee Details: normal to inspection and knee ligament exam normal, lower leg Details: pitting edema Details: 2+ and ecchymosis, ankle Details: normal ROM and ecchymosis (improved ) and foot Details: toes with normal ROM, ecchymosis (improved ), vascular exam Details: dorsalis pedis pulse present and normal capillary refill and motor-sensory exam Details: light-touch abnormal Location: in all toes Left lower extremity: hip/thigh Details: normal to inspection, knee Details: normal to inspection and knee ligament exam normal Details: anterior drawer test normal, valgus stress test normal, varus stress test normal and Justin's test normal, lower leg Details: no localized swelling, ankle (no calf tenderness) Details: normal to inspection and normal ROM; no tenderness and no swelling and foot Details: normal capillary refill, tenderness, toes with normal ROM, vascular exam Details: dorsalis pedis pulse present and normal capillary refill and motor-sensory exam light-touch abnormal in all toes Other: Left foot dressing removed. Wound closed. No signs of infection. Maceration on the dorsum of the midfoot consistent with yeast. Objective Data Meds/Results Medications: Active Medications Generic Name Dose Route Start Last Admin Trade Name Freq PRN Reason Stop Dose Admin Clotrimazole 1 applic 04/09/23 09:08 Betamethasone/Clotrimazole Cr 15 Gm Tube TOPICAL 07/09/23 23:55 PRN PRN Wound Care Silver Nitrate 1 applic 04/02/23 13:58 Silvergel (Elta) 45 Ml TOPICAL 07/02/23 23:55 PRN PRN Wound Care Wound Care/Dressing Products 1 patch 04/02/23 13:59 Mepilex Transfer Drsg 6x8 TOPICAL 07/02/23 23:55 PRN PRN Wound Care
--- NOTE | 2023-06-04 08:46 | PM.IMHP ---
H&P: HPI History of Present Illness Date/Time: 06/04/23 08:46 Chief Complaint: Left TMA Narrative: 62-year-old male returns to the [facility] wound clinic today for re-evaluation of left TMA wound. Patient is 3 months status post left TMA. He denies fever, chills, night sweats, nausea, vomiting or diarrhea. No new concerns. Awaiting a shoe filler for the TMA at this time. He is supposed to pick this up on Saturday from [facility]. Review of Systems Review of Systems: All systems reviewed & are unremarkable except as noted in HPI and below PMFSH Past Medical History Medical History Alcoholic cirrhosis of liver He has abstained from alcohol since July 2020. Chronic anemia Chronic hyponatremia Chronic kidney disease, stage 3 Essential hypertension Gastroesophageal reflux disease Necrotizing fasciitis of ankle and foot Neuropathy Paroxysmal atrial fibrillation Thrombocytopenia Surgical History Surgical History Amputation of toe of left foot History of surgery on arm (2012) ORIF right humerus fracture. History of surgery on wrist History of ventral hernia repair (11/2013) Subsequent abdominal wall exploration with drainage of a seroma at the same site in 03/2014. Status post transmetatarsal amputation of left foot Family History Family History Mother Hypertension Family history of diabetes mellitus in first degree relative Diabetes mellitus Father Family history of pancreatic cancer Social History Social History Social History: Surrogate medical decision maker: Shawna Garner, daughter. Code status: Full code. Smoking status: Never smoker Alcohol intake: current Drinks per week: 5 Alcohol use details: History of heavy alcohol use, now rare alcohol use in moderation. Substance use: current Substance use type: marijuana Other substance usage details: EDIBLES, SMOKES MARIJUANA Last use: 02/14/23 Lack of Transportation: No Lack of Food: Never True Current Housing: I Have Housing Concerned About Future Housing: No Difficulty Paying Gas/Electric Bills: No Difficulty Paying for Meds: No Currently Unemployed: No Education: High School Diploma/GED Difficulty w/ Childcare or Family Care: No Living arrangements: alone Additional living arrangements comments: Lives alone in [place]. Occupation/Education: retired Additional occupation/education comments: [employer]. Spiritual care concerns: No Meds Home Medications and Allergies Home Medications Medication Instructions Recorded Confirmed Type omeprazole 20 mg capsule,delayed 40 mg PO BID 08/19/19 02/27/23 History release thiamine HCl (vitamin B1) 250 mg 250 mg PO DAILY 08/19/19 02/27/23 History tablet nadolol 20 mg tablet 40 mg PO DAILY 08/09/21 02/27/23 History furosemide 40 mg tablet 40 mg PO DAILY 08/29/22 02/27/23 History spironolactone 100 mg tablet 100 mg PO DAILY 08/29/22 02/27/23 History amoxicillin 500 mg-potassium 1 tablet PO Q8H #33 tabs 02/20/23 02/27/23 Rx clavulanate 125 mg tablet (Augmentin) doxycycline hyclate 100 mg tablet 100 mg PO Q12HR #23 tabs 02/20/23 02/27/23 Rx polyethylene glycol 3350 17 gram 17 g PO QAM #14 ea 02/20/23 02/27/23 Rx oral powder packet (Miralax) sennosides 8.6 mg-docusate sodium 2 tab PO BID #60 tabs 02/20/23 02/27/23 Rx 50 mg tablet (Senokot-S) oxycodone 5 mg tablet 5 mg PO Q6H PRN pain #28 tabs 02/21/23 02/27/23 Rx gabapentin 600 mg tablet 600 mg PO TID #270 tabs 05/17/23 Rx cyclobenzaprine 5 mg tablet 5 mg PO QHS PRN Muscle Spasm #30 06/03/23 Rx tabs Allergies Allergy/AdvReac Type Severity Reaction Status Date / Time No Known Allergies Allergy Unknown Verified 02/26/23 11:36 Exam Extrem: Right lower
== END 2023-07-01 23:59 | disposition home or self-care (01) ==
LOC: ANHWOC 07:15
PROVIDERS: PCP Physician Assistant; Referring Provider Nurse Practitioner Family; Visit Provider Nurse Practitioner Family
DX: L97.529 Non-pressure chronic ulcer of other part of left foot with unspecified severity (principal); S91.302D Unspecified open wound, left foot, subsequent encounter
CPT/HCPCS: 99212; 99213; A9270; G0463

== ENCOUNTER 2024-02-14 14:34 | Outpatient (CLI) | payer OTHER, SELFPAY ==
--- NOTE | ~2024-02-14 | XR_ITS ---
XR foot RT min 3V 02/14/2024 15:10 Indication: Callus. Ulcer lateral aspect of the foot. Procedure: 4 views right foot Comparison: 12/07/2021 Findings: Moderate osteoarthritis of the first MTP joint. Lisfranc joint intact. Osteopenia. No fract ure or traumatic malalignment. There is soft tissue swelling lateral to the mid and hindfoot. No acut e fracture. There are degenerative calcaneal enthesophytes. Impression: 1: No acute fracture. Reviewed, dictated and finalized at location B. Impression: 1: No acute fracture.
== END 2024-02-14 14:35 | disposition home or self-care (01) ==
PROVIDERS: PCP Physician Assistant; Visit Provider Nurse Practitioner
DX: M79.671 Pain in right foot (principal)
CPT/HCPCS: 73630

== ENCOUNTER 2024-10-10 15:13 | Emergency (ER) | payer OTHER, SELFPAY ==
--- NOTE | ~2024-10-10 | XR_ITS ---
EXAM: XR hand LT min 3V DATE: 10/10/2024 16:33 HISTORY: FALL, HAND INJURY . COMPARISON: 07/30/2007. FINDINGS: Normal mineralization. Mildly displaced comminuted fracture of the proximal aspect of the left fifth proximal phalanx, with slight posterior angulation and minimal impaction, with intra-artic ular extension. No lytic or blastic lesion. Mild scattered degenerative change. Chondrocalcinosis. Celestin ture anchors in the distal pole of the left scaphoid. No erosion or periosteal change. Soft tissue sw elling over the fracture. IMPRESSION: Minimally displaced, mildly impacted and angulated, intra-articular fracture of the proxi mal aspect of left fifth proximal phalanx. Reviewed, dictated and finalized at location K. IMPRESSION: Minimally displaced, mildly impacted and angulated, intra-articular fracture of the proximal aspect of left fifth proximal phalanx.
--- OUTSIDE RECORDS SUMMARY | 2024-10-10 15:15 | XMS_ITS | Referral Summary ---
Author Organization [facility] Address [address] [address] Care Team Providers Care Hims Clerk Name Role Phone Jt Collins APRN-[facility] Unavailable [phone] Barron Adan MD Primary Care Provider [phone] Source Comments [facility],non-owned Affiliates and Associated Physician Practices is amultiple site organization consisting of ambulatory clinics and hospital sitesin [place], [place], [place] and [place]. This disclosure is being madepursuant to the Care Everywhere program and may not contain all information available regarding this patient. Last updated 18.[facility] Encounters Date Type Department Care Team Description 09/30/2024 9:30 AM CARTON STAMPER - 09/30/2024 11:59 PM [facility] Hospital Encounter [facility] OT [address] [place] [address] Florian Barlow MD Pisciotto, Erica D, OT Discharge Disposition: Home or Self Care 09/16/2024 9:15 AM CARTON STAMPER - 09/16/2024 11:59 PM [facility] Hospital Encounter [facility] OT [address] [place] [address] Florian Barlow MD Pisciotto, Erica D, OT Discharge Disposition: Home or Self Care 08/31/2024 4:00 PM CARTON STAMPER - 08/31/2024 11:59 PM CARTON STAMPER Hospital Encounter [facility] OT [address] [place] [phone] Florian Barlow MD Pisciotto, Erica D, OT Discharge Disposition: Home or Self Care 08/31/2024 2:17 PM CARTON STAMPER - 08/31/2024 3:59 PM CARTON STAMPER Hospital Encounter [facility] DIAGNOSTIC RAD OP [address] [place] [phone] Florian Barlow MD Discharge Disposition: Home or Self Care 08/31/2024 Travel 08/31/2024 Orders Only [facility] - General Surgery [address] [place] [phone] Floiran Barlow MD Laceration of left index finger without foreign body without damage to nail, subsequent encounter ; Left hand pain 08/31/2024 2:00 PM CARTON STAMPER Office Visit [facility] - Plastic Surgery [address] [place] [phone] Devon Payne MD Mailey, Brian A, MD Closed dislocation finger, proximal interphalangeal joint, traumatic (Primary Dx); Laceration of left index finger without foreign body without damage to nail, subsequent encounter 08/21/2024 Telephone [facility] - Internal Medicine [address] [facility] [place] [address] Mariel Alcocer Referral Consult Request 08/20/2024 Patient Outreach [facility] - Care Coordination [address] [place] [address] Melba Monsalve, FREEZER PERSON [facility] Follow-up 08/20/2024 Patient Outreach [facility] [place] [facility] - Care Coordination [address] [place] [address] Rama London, FREEZER PERSON [facility] Follow-up 08/20/2024 Telephone [facility] - Internal Medicine [address] [phone] Devon Payne MD Appointment; Reminder Call 08/19/2024 Travel 08/19/2024 1:36 PM CARTON STAMPER - 08/19/2024 6:04 PM [facility] Emergency [facility] EMERGENCY DEPARTMENT [address] [place] [address] Laceration of left index finger without foreign body without damage to nail, initial encounter (Primary Dx); Pain of left hand; Dislocation of finger, initial encounter; Open nondisplaced fracture of middle phalanx of left index finger, initial encounter Discharge Disposition: Home or Self Care from Last 3 Months Allergies No known active allergies Medications * Be aware that medications may not be up to date on this document. Alwaysverify current medications with the patient. Medication Sig Dispensed Refills Start Date End Date Status cyclobenzaprine (FLEXERIL) 5 MG tablet nightly as needed 05/01/2021 Active thiamine (Vitamin B-1) 250 MG tablet Take 1 (one) tablet by mouth once daily Active omeprazole (PriLOSEC) 20 MG capsuleIndications: Alcoholic cirrhosis of liver with ascites (HCC) TAKE 1 CAPSULE BY MOUTH TWICE A DAY BREAKFAST AND DINNER 180 capsule 7 07/08/2023 Active ciprofloxacin (Cipro) 500 MG tabletIndications:S BP (spontaneous bacterial peritonitis) (HCC) TAKE 1 TABLET BY MOUTH EVERY DAY 90 tablet 3 12/09/2023 Active spironolactone (Aldactone) 50 MG tabletIndications:A lcoholic cirrhosis of liver without ascites (HCC) TAKE 2 TABLETS BY MOUTH ONCE DAILY 180 tablet 3 02/07/2024 Active furosemide (Lasix) 20 MG tabletIndications:A lcoholic cirrhosis of liver without ascites (HCC) TAKE 2 TABLETS BY MOUTH ONCE DAILY 180 tablet 3 02/07/2024 Active nadolol (Corgard) 40 MG tablet TAKE 1 TABLET BY MOUTH EVERY DAY 90 tablet 3 03/23/2024 Active HYDROcodone-acetami nophen (Naper) 5-325 MG tabletIndications:P ain of left hand Take 1 (one) tablet by mouth every 6 hours as needed for Pain 12 tablet 08/19/2024 Active gabapentin (Neurontin) 600 MG tablet Take 1.5 (one and one-half) tablets by mouth 3 times daily 135 tablet 08/31/2024 Active Active Problems Problem Noted Date Diagnosed Date Laceration of left index fin armando without foreign body without damage to nail 08/19/2024 Pre-transplant evaluation for liver transplant 0 10/24/2018 Overview (12/02/2018): Images from the original note were not included. Rhett Garner 58y : 62 Dx: ETOH MELD: 11 (12/01/18) Referring: Horacio (last seen on 10/28/18) Txp Surg: Daysi & Dr. Awad (last seen on 12/01/18) Hx: 58M with ETOH cirrhosis complicated by large volume ascites and hepatic encephalopathy controlled with lactulose. Also has esophageal varices that were banded. Last MELD a week ago was 16. Had recent admission x 2 in 08/2018 for SBO unrelated to his known recurrent umbilical hernia. Presented to clinic 10/14/18 for regular follow-up but had small amount leakage of ascites from umbilical hernia which is fully reducible. Denies fever/chills. Tolerating diet and passing BM/flatus. Last ETOH was 03/2018. Completed relapse prevention, forms to [facility]. Possible TIPS candidate He has been diagnosed with alcoholic cirrhosis for 4 years when he developed ascites. He has an extensive h/o alcohol abuse and He was instructed to stop consuming alcohol but he refused over the last 4 years. He was seen at both the GI and hepatology clinic here at [facility]. He was recently at a local ER where he was sent for an emergent paracentesis due to leaking umbilcus. He never had HE, he had EGD showing esophageal varices. Viral Hepatitis B/C were both negative. Today patient comes back after he completely quit Alcohol for 4 1/2 month, and actually started counseling and relapse prevention for alcohol abuse. He also has been recommended to go for follow up on monthly basis which is what he is planning to do. I had started him on Lasix and aldactone, and stopped his benazepril , and he checks his bp daily, and has been running in 100-130's, also his weight has dropped from 247 to 193 with significant improvement of his ascites. No HE, or LL edema or Jaundice. His energy levels are better now. 10/14/2018 18:05 10/18/2018 10:43 10/22/2018 08:21 ABO Rh A POS A POS A POS 10/22/2018 05:59 Iron 32 (L) Transferrin 120 (L) Transferrin Saturation % 21 10/22/2018 05:59 Total Cholesterol (NMR) 69 Triglycerides 66 HDL 15 (L) LDL Calculated 41 10/22/2018 05:59 Hemoglobin A1c 4.4 Estimated Average Glucose 80 10/07/2018 09:45 10/22/2018 05:59 Alpha-Fetoprotein Tumor Marker 3.250 PSA Free <0.10 03/14/2015 10:30 Nylqp-6-Kownvzujcmo 162 10/22/2018 06:01 DELPHINE Negative 03/14/2015 10:30 Ceruloplasmin 31 08/18/2018 08:50 10/07/2018 09:45 Alcohol Ethyl None Detected Interpretation Ethanol None Detected 09/08/2018 11:34 Hepatitis C Antibody Non-reactive 10/22/2018 05:59 Treponema pallidum Antibody Non-reactive Cytomegalovirus Antibody IgG <0.60 Farzad-Bennett Virus Early Antigen Antibody <9.0 Measles (Rubeola) Antibody IgG >300.0 Varicella zoster Virus Antibody IgG 3858 Toxoplasma gondii Antibody IgG Quantitative <3.0 CXR: (10/22/18) There is a small left pleural effusion, new. The right lung is clear. There is no focal consolidation or pneumothorax. The cardiomediastinal silhouette is normal. The visible bony thorax is intact. Small left pleural effusion. Pano: (10/22/18) Multiple teeth are missing. There are multiple dental restorations. There is no periodontal disease or periapical abscess. The mandible and temporomandibular joints are intact. There is no evidence of periodontal disease or periapical abscess. DEXA: (11/10/18) CT abd w/ contrast: (09/16/18) 1. Dilated loops of small bowel in the midabdomen with a point of transition in the right lower quadrant with fecalization is indicative of a high-grade obstruction, nearly identical in appearance to 09/08/2018. Moderate volume ascites is unchanged No evidence of pneumoperitoneum or pneumatosis. 2. Large paraumbilical hernia containing loculated ascites and a portion of a single loop of small bowel without evidence of strangulation, minimally decreased from the previous exam. 3. Hepatic cirrhosis with sequela of portal hypertension including moderate volume ascites, splenomegaly, and numerous perigastric and paraesophageal varices. MRI abd: (09/22/18) 1. No arterially-enhancing hepatic lesions concerning for hepatocellular carcinoma. 2. Hepatic cirrhosis with sequela of portal hypertension including large volume ascites, splenomegaly, and numerous upper abdominal varices. DSE: (11/04/18) TTE Echo w/ bubble study: (10/24/18) EGD: (10/03/18) Colonoscopy: (01/25/2015) 1) Non-thrombosed external and internal hemorrhoids. 2) One 3 mm polyp in the transverse colon. Resected and retrieved. 3) One 3 mm polyp in the sigmoid colon. Resected and retrieved. Clip was placed over polypectomy site given mild oozing. 4) One column of non-bleeding rectal varices. Pathology: (01/25/15) SW: (11/01/18) Clinical Social Work Impression: It is the impression of this social and political studies professor that Rhett Garner has several positive factors for Liver transplant candidacy including knowledge of illness, sufficient insurance coverage, stable financial situation for post transplant needs, no concerns regarding current substance abuse, adequate support system, and appropriate discharge plan. Plan: mesh worker to provide supportive services as needed. Patient appears to be a reasonable candidate for transplant from a psychosocial perspective, pending: -Random ETOH/nicotine/drug screens until time of transplant. -Patient must complete 8 weeks of documented relapse prevention with monthly attendance until time of transplant. Psychiatric Consult Recommended: No Transplant [facility] Director: Hilary Yoder LMSW PT: (11/04/18) Assessment: Pt with postural dysfunction and decreased endurance, decreased overall strength but is not a fall risk as per ABC scale. Pt would benefit from home walking and HEP, which he was able to demonstrate independence with both. DC pt from PT due to goals met, and pt independent with HEP and walking program. Problems include: see clinical diagnosis above Short Term Goals: MET Independent with home exercise program ABC: Activities Specific Balance Confidence Scale: 100/100% (higher score= increased confidence) Cut off Score indicates increased fall risk : MS: < 63.92 fallers PD: < 69 % fallers General < 67% fallers Plan: Discharge pt from PT due to goals met, and pt independent with walking and HEP program. Teresa Echeverria, PT RD: (11/04/18) BMI= 24.18, normal weight. Pt is considered to be a good candidate for a Liver Transplant from a Nutrition standpoint. Pt has lost a significant amount of weight 28% in past year. As of recent, pt has not lost wt., wt. has stabilized. Will f/u with pt per [place] Nutrition Frailty Free score of 2. Does the patient have acute hepatitis or are they being tube fed?: No (11/10/18 1000) Does the patient have fluid overload? i.e. ascites or peripheral edema: No (11/10/18 1000) BMI kg/m2?: Greater than 20 (11/10/18 1000) Unplanned weight loss in past 3-6 months?: Greater than 10% (11/10/18999) Is the patient acutely ill and has there not been or is there not likely to be any nutritional intake for more than 5 days?: Yes (Eating more since paracentesis & stopped drinking 04/17/18 ) (11/10/18 1000) Liver Frailty Nutritional Assessment Score: 2 (11/10/18999) For Reference: 0 = Low Risk 1 = Moderate Risk 2-7 = High Risk Recommendations/Interventions: 1. Encouraged pt to use exercises and bands from PT for strength. 2. Reinforced Low Sodium diet, HBV PRO at meals and HS (1-1.5 g/kg PRO/d, 85 - 130 grams of PRO/d) STILL NEEDS: Ventral hernia, recurrent 10/14/2018 Hepatic encephalopathy 09/10/2018 Overview (09/10/2018): New confusion/asterixis when admitted 09/09/18 with partial SBO. Ascites 09/10/2018 Overview (12/01/2018): MELD-Na score: 11 at 12/01/2018 12:56 PM MELD score: 11 at 12/01/2018 12:56 PM Calculated from: Serum Creatinine: 1.0 mg/dL at 12/01/2018 12:56 PM Serum Sodium: 136 mmol/L at 12/01/2018 12:56 PM Total Bilirubin: 1.7 mg/dL at 12/01/2018 12:56 PM INR(ratio): 1.3 at 12/01/2018 12:56 PM Age: 58 years Abdominal pain, right upper quadrant 09/08/2018 Liver lesion 09/05/2018 HTN (hypertension) 04/23/2018 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 Overview (09/10/2018): Overview: Possible short segment not biopsied Esophageal varices 08/29/2015 Overview (09/10/2018): Overview: Small in December 2014 Tubular adenoma of colon 08/29/2015 Overview (09/10/2018): Overview: 2x small in 2014, repeat recommended in 2019 Umbilical hernia 08/29/2015 Overview (09/10/2018): Overview: Repaired before and recurred Alcoholic cirrhosis 01/03/2015 Alcoholic cirrhosis of liver with ascites Secondary esophageal varices without bleeding Resolved Problems Problem Noted Date Diagnosed Date Resolved Date Small bowel obstruction 09/16/201809/26 Encounter for nasogastric (NG) tube placement 09/16/19 19 10/07/2020 Partial intestinal obstruction 10/07/2020 Immunizations Name Administration Dates Next Due COVID - 19, HISTORIC VACCINE 05/06/2024 Covid Pfizer primary monoval ent 12+ yr 0.3mL Purple cap 10/18/2020,09/27/2020 INFLUENZA VACCINE, CELL CULT URE, TRIV. (FLUCELVAX TRIVALENT; 6MO+), 0.5 ML (CCIIV3) 05/06/2024 TDAP (7yrs+) 08/19/2024 Social History Tobacco Use Types Packs/Day Years Used Date Smoking Tobacco: Former Cigarettes 0.3 1 0 01/03/1989 - 01/03/1990 Smokeless Tobacco: Never Tobacco Cessation:Counseling Given: Not Answered Comments:Tried smoking in high school Alcohol Use Standard Drinks/Week Comments Yes 5 (1 standard drink = 0.6 oz pur e alcohol) 2 WEEKS AGO PHQ-2 Answer Date Recorded Patient Health Questionnaire-2 Score 0 08/20/2024 Sex and Gender Information Value Date Recorded Sex Assigned at Male 12/13/2020 8:55 PM CDT Gender Identity Male 12/13/2020 8:55 PM CDT Sexual Orientation Straight 12/13/2020 8: 55 PM CDT Last Filed Vital Signs Vital Sign Reading Time Taken Comments Blood Pressure 104/67 08/31/2024 2:36 PM CARTON STAMPER Pulse 87 08/31/2024 2:36 PM CARTON STAMPER Temperature 36.2 C (97.2 F) 08/31/2024 2:36 PM CARTON STAMPER Respiratory Rate 18 08/19/2024 5:58 PM CARTON STAMPER Oxygen Saturation 96% 08/31/2024 2:36 PM CARTON STAMPER Inhaled Oxygen Concentration - - Weight 118.9 kg (262 lb 3.2 oz) 08/31/2024 2:36 PM CARTON STAMPER Height 188 cm (6' 2 ) 08/31/2024 2:36 PM CARTON STAMPER Body Mass Index 33.66 08/31/2024 2:36 PM CARTON STAMPER Functional Status Functional Status Response Date of Assess ment Is person deaf or have serious hearing difficult y? No 10/20/2018 Is person blind or have serious difficulty seein g? No 10/20/2018 Does person have serious dif ficulty walking/climbing stairs? No 10/20/2018 Does person have difficulty dressing/bathing? No 10/20/2018 Does person have difficulty doing errands alone? No 10/20/2018 Cognitive Status Response Date of Assessm ent Does person have difficulty concentrating/remembering/making decisions? No 10/20/2018 Plan of Treatment Upcoming Encounters Date Type Department Care Team (Late st Contact Info) Description 10/15/2024 9:30 AM CDT Appointment [facility] OT [address] [place] [address] Estee Jordan, OT 12/07/2024 11:00 AM CDT Appointment [facility] [address] [place] [address] Deloris Ferris, PBX INSTALLER-SHOE LACER [address] [facility] [address] [place] [address] 12/07/2024 12:00 PM CDT Appointment [facility] LAB OP DRAW STATION [address] [place] [address] Deloris Ferris, PBX INSTALLER-SHOE LACER [address] [facility] [address] [place] [address] 12/07/2024 2:00 PM CDT Office Visit [facility] - GI [address] [place] [phone] Deloris Ferris, PBX INSTALLER-SHOE LACER [address] [place] [address] [address] [place] [address] 12/15/2024 3:00 PM CDT Office Visit [facility] Medical [facility] - Internal Medicine [address] [place] [address] [address] [place] [phone] Devon Payne MD [address] [place] [address] [place] [phone] 01/21/2025 10:00 AM CDT Office Visit [facility] - Nephrology [address] [place] [phone] Teofilo Weinstein MD [address] [place] [address] [address] DIV OF NEPHROLOGY [place], [place] [phone] Goals Goal Patient Goal Type Associated Problems Recent Progress Patient-Stated? Author Medication Management General On track( 024 9:47 AM CDT) Gisel Begum, RN Note: Expected end date: Ongoing Interventions: Take all medications as prescribed Let your doctor know right away about any changes in your medications Make sure to request a refill of your medication at least one week prior to your last dose Procedures Procedure Name Priority Date/Time Associated Diagnosis Comments XR HAND LEFT 3VW OR MORE Routine 08/31/2024 2:25 PM CARTON STAMPER Laceration of left index finger without foreign body without damage to nail, subsequent encounter Left hand pain CBC W AUTO DIFFERENTIAL STAT 08/19/2024 4:28 PM CARTON STAMPER XR HAND LEFT 3VW OR MORE STAT 08/19/2024 8:19 AM CARTON STAMPER Pain of left hand COMPREHENSIVE METABOLIC PANEL Routine 06/08/2024 1:33 PM CARTON STAMPER Alcoholic cirrhosis of liver with ascites (HCC) LIPID PROFILE Routine 09/12/2023 2:34 PM CARTON STAMPER Alcoholic cirrhosis, unspecified whether ascites present (HCC) Special screening for malignant neoplasm of prostate Fatigue, unspecified type Hyperglycemia ENDOSCOPY, COLON, DIAGNOSTIC Routine 11/28/2018 1:53 PM CDT HEPATITIS C AB SCREEN RFLX NAAT QUANT STAT 09/08/2018 11:34 AM CARTON STAMPER HIV-1 HIV-2 ANTIGEN/ANTIBODY STAT 09/08/2018 11:34 AM CARTON STAMPER from Last 3 Months or Most Recently Relevant to Health Maintenance Results * XR Hand Left 3Vw or More (08/31/2024 2:25 PM CARTON STAMPER) Only the most recent of2 resultswithin the time period is included. Anatomical Region Laterality Modality Wrist / Hand Digital Radiogra phy 09/01/2024 2:32 PM CARTON STAMPER Impressions 09/01/2024 2:35 PM CARTON STAMPER IMPRESSION: Satisfactory interval reduction of the dislocation at the level of the second PIP joint with the second proximal phalanx and middle phalanx appearing anatomically aligned on the present study. No obvious abnormal soft tissue gas seen on the present study. > Interpreting Provider: Dino Ozuna MD on 09/01/2024 2:35 PM Narrative 09/01/2024 2:35 PM CARTON STAMPER PROCEDURE: XR HAND LEFT 3VW OR MORE DATE/TIME OF EXAM: 08/31/2024 2:25 PM CLINICAL INFORMATION: None relevant/not provided if blank. Indication: S61.211D: Laceration of left index finger without foreign body without damage to nail, subsequent encounter M79.642: Left hand pain Additional History: COMPARISON: 3 view left hand study dated 08/19/2024 FINDINGS: Nonstandard PA as well as oblique and lateral views of the left hand were obtained. A dorsally placed stabilization splint obscures bone and soft tissue detail. The previously visualized dorsal dislocation of the second finger localizing to the PIP joint has been reduced with the osseous structures appear to be anatomically aligned on each of the 3 projections. No other significant bone or joint space abnormality of concern of the left hand proper identified. Two surgical anchors seen within the mid scaphoid bone presumably from a prior scaphoid repair. Procedure Note Dino Ozuna MD - 09/01/2024 PROCEDURE: XR HAND LEFT 3VW OR MORE DATE/TIME OF EXAM: 08/31/2024 2:25 PM CLINICAL INFORMATION: None relevant/not provided if blank. Indication: S61.211D: Laceration of left index finger without foreignbody without damage to nail, subsequent encounter M79.642: Left hand pain Additional History: COMPARISON: 3 view left hand study dated 08/19/2024 FINDINGS: Nonstandard PA as well as oblique and lateral views of theleft hand were obtained. A dorsally placed stabilization splint obscures bone and soft tissue detail. The previously visualized dorsal dislocation ofthe second finger localizing to the PIP joint has been reduced with theosseous structures appear to be anatomically aligned on each of the 3projections. No other significant bone or joint space abnormality of concern of theleft hand proper identified. Two surgical anchors seen within the mid scaphoid bone presumably from a prior scaphoid repair. IMPRESSION: Satisfactory interval reduction of the dislocation at thelevel of the second PIP joint with the second proximal phalanx and middlephalanx appearing anatomically aligned on the present study. No obvious abnormal soft tissue gas seen on the present study. > Interpreting Provider: Dino Ozuna MD on 09/01/2024 2:35 PM Florian Barlow MD DIAGNOSTIC IMAGING O RDERABLES * (ABNORMAL) CBC W AUTO DIFFERENTIAL (08/19/2024 4:28 PM CARTON STAMPER) WBC 3.2(L) 4.0 - 10.7 x10E9/L 08/19/2024 5:13 PM CARTON STAMPER [facility] RBC Count 3.88(L) 4.30 - 5.80 x10E12/L 08/19/2024 5:13 PM CARTON STAMPER [facility] Hemoglobin 11.5(L) 13.3 - 17.5 g/dL 08/19/2024 5:13 PM [facility] Hematocrit 35.6(L) 38.7 - 51.1 % 08/19/2024 5:13 PM [facility] MCV 91.8 80.0 - 98.0 fL 08/19/2024 5:13 PM [facility] MCH 29.6 26.7 - 33.6 pg 08/19/2024 5:13 PM [facility] MCHC 32.3 31.7 - 36.3 g/dL 08/19/2024 5:13 PM [facility] RDW-CV 16.6(H) 11.3 - 14.8 % 08/19/2024 5:13 PM [facility] Platelet Count 41(L) 150 - 420 x10E9/L 08/19/2024 5:13 PM [facility] MPV 12.2(H) 7.8 - 11.4 fL 08/19/2024 5:13 PM [facility] Neutrophil % 56.5 41.0 - 74.0 % 08/19/2024 5:13 PM [facility] Lymphocyte % 25.9 17.0 - 47.0 % 08/19/2024 5:13 PM [facility] Monocyte % 13.2(H) 3.0 - 11.0 % 08/19/2024 5:13 PM [facility] Eosinophil % 2.8 0.0 - 7.0 % 08/19/2024 5:13 PM [facility] Basophil % 1.3 0.0 - 1.6 % 08/19/2024 5:13 PM [facility] Immature Granulocytes % 0.3 0.0 - 1.0 % 08/19/2024 5:13 PM [facility] Neutrophil Absolute 1.79 1.60 - 7.50 x10E9/L 08/19/2024 5:13 PM [facility] Lymphocyte Absolute 0.82(L) 1.00 - 4.40 x10E9/L 08/19/2024 5:13 PM [facility] Monocyte Absolute 0.42 0.15 - 1.00 x10E9/L 08/19/2024 5:13 PM [facility] Eosinophil Absolute 0.09 0.00 - 0.60 x10E9/L 08/19/2024 5:13 PM [facility] Basophil Absolute 0.04 0.00 - 0.13 x10E9/L 08/19/2024 5:13 PM [facility] Blood BLOOD SPECIMEN / Unknown Venipuncture / Unknown 08/19/2024 4:28 PM CARTON STAMPER 08/19/2024 4:38 PM CARTON STAMPER Ashly Joy PA-C LAB - HEMATOL OGY ORDERABLES [facility] [address] [place] [address], [facility] [phone] * (ABNORMAL) COMPREHENSIVE METABOLIC PANEL (06/08/2024 1:33 PM CARTON STAMPER) BUN 23 7 - 26 mg/dL 06/08/2024 2:25 PM [facility] Creatinine 1.42(H) 0.71 - 1.16 mg/dL 06/08/2024 2:25 PM [facility] Sodium 138 136 - 145 mmol/L 06/08/2024 2:25 PM [facility] Potassium 4.3 3.5 - 4.5 mmol/L 06/08/2024 2:25 PM [facility] Chloride 106 98 - 107 mmol/L 06/08/2024 2:25 PM [facility] CO2 24 22 - 29 mmol/L 06/08/2024 2:25 PM [facility] Glucose 96 70 - 99 mg/dL 06/08/2024 2:25 PM [facility] Calcium 9.5 8.4 - 10.2 mg/dL 06/08/2024 2:25 PM [facility] Protein Total 7.6 6.0 - 8.3 g/dL 06/08/2024 2:25 PM [facility] Albumin 3.2(L) 3.4 - 5.0 g/dL 06/08/2024 2:25 PM [facility] Bilirubin Total 2.0(H) 0.2 - 1.2 mg/dL 06/08/2024 2:25 PM [facility] Alkaline Phosphatase 106 40 - 150 U/L 06/08/2024 2:25 PM [facility] ALT 25 5 - 55 U/L 06/08/2024 2:25 PM [facility] AST 42(H) 5 - 34 U/L 06/08/2024 2:25 PM [facility] Anion Gap 8 6 - 16 06/08/2024 2:25 PM [facility] BUN/Creatinine Ratio 16 7 - 23 06/08/2024 2:25 PM [facility] Osmolality Calculated 290 275 - 295 mOsm/kg 06/08/2024 2:25 PM [facility] Albumin/Globulin Ratio 0.7(L) 1.1 - 2.3 06/08/2024 2:25 PM [facility] eGFR by CKD-EPI 56(L) >=90 mL/min/1.7 3 m2 06/08/2024 2:25 PM [facility] Blood BLOOD SPECIMEN / Unknown Lab Venipuncture / Unknown 06/08/2024 1:33 PM [facility] 06/08/2024 1:49 PM [facility] Deloris Ferris PBX [employer] LAB - CHEMI STRY ORDERABLES [facility] [address] [place] [id number], [facility] [phone] * LIPID PROFILE (09/12/2023 2:34 PM [facility]) Cholesterol Total 160 <200 mg/dL 09/12/2023 3:19 PM [facility] HDL 59 >40 mg/dL 09/12/2023 3:19 PM [facility] Comment: ATP III Classification of HDL Cholesterol: <40 mg/dL: Considered a major risk factor. >60 mg/dL: Considered a negative risk factor. LDL Calculated 89 <100 mg/dL 09/12/2023 3:19 PM [facility] Comment: ATP III Classification of LDL Cholesterol: <100 mg/dL: Optimal 100 - 129 mg/dL: Near Optimal/Above Optimal 130 - 159 mg/dL: Borderline High 160 - 189 mg/dL: High >190 mg/dL: Very High Triglycerides 60 <150 mg/dL 09/12/2023 3:19 PM [facility] Comment: ATP III Classification of Triglycerides: <150 mg/dL: Normal 150 - 199 mg/dL: Borderline High 200 - 400 mg/dL: High >500 mg/dL: Very High Blood BLOOD SPECIMEN / Unknown Lab Venipuncture / Unknown 09/12/2023 2:34 PM [facility] 09/12/2023 2:50 PM [facility] Perfecto Contreras PA-C LAB - MARRIAGE AND FAMILY COUNSELOR RY ORDERABLES [facility] [address] [place] [address], [facility] [phone] * ENDOSCOPY, COLON, DIAGNOSTIC (11/28/2018 1:53 PM CDT) Report Endoscopy POC Endoscopy Department Report _ Patient Name: Rhett Garner Procedure Date: 11/28/2018 1:53 PM Date of : 1960 Classification: Outpatient Gender: Male Ethnicity: Not or Race: White _ Providers: Julio Cesar Leonard Referring MD: Procedure: Colonoscopy Indications: Screening for colorectal malignant neoplasm Medications: Monitored Anesthesia Care, Glucagon 0.6 mg IV Description of Procedure: After I obtained informed consent, the scope was passed under direct vision. Throughout the procedure, the patient's blood pressure, pulse, and oxygen saturations were monitored continuously. The [id number] was introduced through the anus and advanced to the terminal ileum, with identification of the appendiceal orifice and IC valve. The colonoscopy was performed without difficulty. The patient tolerated the procedure well. The quality of the bowel preparation was good. Findings: External and internal hemorrhoids were found during retroflexion. The hemorrhoids were small. Estimated Blood Loss: Estimated blood loss: none. Complications: No immediate complications. Estimated blood loss: None. Impression: - No specimens collected. Recommendation: - Discharge patient to home (with escort). - Repeat colonoscopy in 10 years for screening purposes. - Return to my office as previously scheduled. Attending Participation: I personally performed the entire procedure. Procedure Code(s): --- Professional --- G0121, Colorectal cancer screening; colonoscopy on individual not meeting criteria for high risk Diagnosis Code(s): --- Professional --- Z12.11, Encounter for screening for malignant neoplasm of colon CPT copyright 2016 [employer]. All rights reserved. The codes documented in this report are preliminary and upon physician coder review may be revised to meet current compliance requirements. Julio Cesar Leonard, 11/28/2018 2:31:42 PM Note Initiated On: 11/28/2018 1:53 PM Number of Addenda: 0 [facility] [address] [place] [address] [facility] 11/28/2018 1:53 PM CDT Julio Cesar Leonard MD GI PROCEDURE O RDERABLES [facility] * HIV-1 HIV-2 ANTIGEN/ANTIBODY (09/08/2018 11:34 AM [facility]) HIV Antigen/Antibod y 1 & 2 Non-reacti ve Non-react titus 09/08/2018 12:17 PM [facility] Comment: Neither HIV-1 p24 Antigen nor HIV-1/HIV-2 Antibodies are detected. Blood BLOOD SPECIMEN / Unknown Venipuncture / Unknown 09/08/2018 11:34 AM [facility] 09/08/2018 11:37 AM [facility] Maureen Wilcox MD LAB - HEMATOLOGY [facility] [address] [phone] * HEPATITIS C AB SCREEN RFLX NAAT QUANT (09/08/2018 11:34 AM [facility]) Hepatitis C Antibody Non-react titus Non-reac tive 09/08/2018 12:17 PM [facility] Comment: Hepatitis C Antibody screen indicates no serologic evidence of past or current infection with Hepatitis C Virus. Patients with unexplained liver disease who are immunocompromised or suspected of having acute Hepatitis C infection may benefit from Nucleic Acid Test (CRYSTAL) for Hepatitis C Viral RNA to confirm Hepatitis C status. Blood BLOOD SPECIMEN / Unknown Venipuncture / Unknown 09/08/2018 11:34 AM [facility] 09/08/2018 11:37 AM [facility] Maureen Wilcox MD LAB - CHEMISTRY [facility] [address] [phone] from Last 3 Months or Most Recently Relevant to Health Maintenance Advance Directives * Full Code (Latest Code Status on File) Date Activated Date Inactivated Comments 10/14/2018 11:51 PM 10/24/2018 4:44 PM * Full Code Date Activated Date Inactivated Comments 10/14/2018 6:03 PM 10/14/2018 11:51 PM * Full Code Date Activated Date Inactivated Comments 09/16/2018 12:28 PM 09/19/2018 3:41 PM * Full Code Date Activated Date Inactivated Comments 09/09/2018 4:13 AM 09/13/2018 7:07 PM Care Teams Hims Clerk Relationship Specialty Start Date End Date Barron Adan MD [address] [place] [address] PCP - General Internal Medicine 08/31/24 Jt Collins, PBX [employer] [address] [place] [address] Nurse Practitioner 06/03/24
--- OUTSIDE RECORDS SUMMARY | 2024-10-10 15:16 | XMS_ITS | Clinical Summary ---
Author Organization [facility] Address [address] [place] [address] Care Team Providers Care Technical Support Analyst Name Role Phone Jt Collins APRN-ACADEMY EDUCATION DIRECTOR Unavailable [phone] Barron Adan MD Primary Care Provider [phone] [facility],non-owned Affiliates and Associated Physician Practices is amultiple site organization consisting of ambulatory clinics and hospital sitesin [place], [place], [place] and [place]. This disclosure is being madepursuant to the Care Everywhere program and may not contain all information available regarding this patient. Last updated 18.[facility] Allergies No known active allergies Medications * [...] 90 tablet 3 03/23/2024 Active HYDROcodone-acetami nophen (Heiskell) 5-325 MG tabletIndications:P ain of left hand [...] the GI and hepatology clinic here at [facility]. He was recently at a local ER [...] Marker 3.250 PSA Free <0.10 03/14/2015 10:30 [id number] 162 10/22/2018 06:01 DELPHINE Negative 03/14/2015 10:30 [...] It is the impression of this social media strategist that Rhett Baconzane has several positive factors for Liver transplant candidacy including knowledge of illness, sufficient insurance coverage, stable financial situation for post transplant needs, no concerns regarding current substance abuse, adequate support system, and appropriate discharge plan. Plan: sill worker to provide supportive services as needed. Patient appears to be a reasonable candidate for transplant from a psychosocial perspective, pending: -Random ETOH/nicotine/drug screens until time of transplant. -Patient must complete 8 weeks of documented relapse prevention with monthly attendance until time of transplant. Psychiatric Consult Recommended: No Transplant Senior Engineering Specialist: Hilary Yoder LMSW PT: (11/04/18) Assessment: Pt [...] pt independent with walking and HEP program. Tersea Echeverria, PT RD: (11/04/18) BMI= 24.18, normal weight. Pt is considered to be a good candidate for a Liver Transplant from a Nutrition standpoint. Pt has lost a significant amount of weight 28% in past year. As of recent, pt has not lost wt., wt. has stabilized. Will f/u with pt per [place] Nutrition Frailty Free score of 2. Does the patient have acute hepatitis or are they being tube fed?: No (11/10/18999) Does the patient have fluid overload? i.e. ascites or peripheral edema: No (11/10/18999) BMI kg/m2?: Greater than 20 (11/10/18999) Unplanned weight loss in past 3-6 months?: [...] 09/16/19 19 10/07/2020 Partial intestinal obstruction 10/07/2020 Encounters Date Type Department Care Team Description 09/30/2024 9:30 AM MASONRY CONTRACTOR - 09/30/2024 11:59 PM MASONRY CONTRACTOR Hospital Encounter [facility] OT [address] [place] [address] Florian Barlow MD Pisciotto, Erica D, OT Discharge Disposition: Home or Self Care 09/16/2024 9:15 AM MASONRY CONTRACTOR - 09/16/2024 11:59 PM MASONRY CONTRACTOR Hospital Encounter [facility] OT [address] [place] [address] Florian Barlow MD Pisciotto, Erica D, OT Discharge Disposition: Home or Self Care 08/31/2024 4:00 PM MASONRY CONTRACTOR - 08/31/2024 11:59 PM MASONRY CONTRACTOR Hospital Encounter [facility] OT [address] [place] [address] Florian Barlow MD Pisciotto, Erica D, OT Discharge Disposition: Home or Self Care 08/31/2024 2:17 PM MASONRY CONTRACTOR - 08/31/2024 3:59 PM MASONRY CONTRACTOR Hospital Encounter [facility] DIAGNOSTIC RAD OP [address] [place] [address] Florian Barlow MD Discharge Disposition: Home or Self Care 08/31/2024 2:00 PM MASONRY CONTRACTOR Office Visit [facility] - Plastic Surgery [address] [place] [address], [place] [address] Devon Payne MD Mailey, Brian A, MD Closed dislocation finger, proximal interphalangeal joint, traumatic (Primary Dx); Laceration of left index finger without foreign body without damage to nail, subsequent encounter 08/31/2024 Travel 08/31/2024 Orders Only [facility] - General Surgery [address] [place] [address], [place] [address] Florian Barlow MD Laceration of left index finger without foreign body without damage to nail, subsequent encounter ; Left hand pain 08/21/2024 Telephone [facility] - Internal Medicine [address] [facility] [address] [facility] [place] [address] [place] [address] Mariel Alcocer Referral Consult Request 08/20/2024 Patient Outreach [facility] - Care Coordination [address] [place] [phone] Melba Monsalve RN ER Follow-up 08/20/2024 Patient Outreach [facility] - Care Coordination [address] [place] [address] Rama London RN ER Follow-up 08/20/2024 Telephone [facility] - Internal Medicine [address] [facility] [address] [place] [phone] Devon Payne MD Appointment; Reminder Call 08/19/2024 1:36 PM MASONRY CONTRACTOR - 08/19/2024 6:04 PM [facility] Emergency [facility] EMERGENCY DEPARTMENT [address] [place] [address] Laceration of left index finger without foreign body without damage to nail, initial encounter (Primary Dx); Pain of left hand; Dislocation of finger, initial encounter; Open nondisplaced fracture of middle phalanx of left index finger, initial encounter Discharge Disposition: Home or Self Care 08/19/2024 Travel from Last 3 Months Immunizations Name Administration Dates Next Due COVID - 19, HISTORIC VACCINE 05/06/2024 Covid Pfizer primary monoval ent 12+ yr 0.3mL Purple cap 10/18/2020,09/27/2020 INFLUENZA VACCINE, CELL CULT URE, TRIV. (FLUCELVAX TRIVALENT; 6MO+), 0.5 ML (CCIIV3) 05/06/2024 TDAP (7yrs+) 08/19/2024 Family History Medical History Relation Name Comments CAD (Coronary Artery Disease) Brother 1 CAD (Coronary Artery Disease) Brother 2 Diabetes - Type 2 Brother 3 Cancer Father Status: d Diabetes Mother Status: Alive Hypertension Mother Relation Name Status Comments Brother 1 Brother 2 Brother 3 Father (Age 77) Mother Alive Social History Tobacco Use Types Packs/Day Years [...] Comments Blood Pressure 104/67 08/31/2024 2:36 PM MASONRY CONTRACTOR Pulse 87 08/31/2024 2:36 PM MASONRY CONTRACTOR Temperature 36.2 C (97.2 F) 08/31/2024 2:36 PM MASONRY CONTRACTOR Respiratory Rate 18 08/19/2024 5:58 PM MASONRY CONTRACTOR Oxygen Saturation 96% 08/31/2024 2:36 PM MASONRY CONTRACTOR Inhaled Oxygen Concentration - - Weight 118.9 kg (262 lb 3.2 oz) 08/31/2024 2:36 PM MASONRY CONTRACTOR Height 188 cm (6' 2 ) 08/31/2024 2:36 PM MASONRY CONTRACTOR Body Mass Index 33.66 08/31/2024 2:36 PM MASONRY CONTRACTOR Plan of Treatment Upcoming Encounters Date Type Department Care Team (Late st Contact Info) Description 10/15/2024 9:[address] [facility] OT [address] [place] [phone] Estee Jordan, OT 12/07/2024 11:00 AM CDT Appointment [facility] [address] [place] [phone] Deloris Ferris, RESEARCH/PROGRAM DIRECTOR-ACADEMY EDUCATION DIRECTOR [address] [place] [address] [place] [address] 12/07/2024 12:[address] [facility] OP DRAW STATION [address] [place] [address] Deloris Ferris, RESEARCH/PROGRAM DIRECTOR-ACADEMY EDUCATION DIRECTOR [address] [place] [address] [place] [address] 12/07/2024 2:00 PM CDT Office Visit [facility] - GI [address] [place] [address], [place] [phone] Deloris Ferris, RESEARCH/PROGRAM DIRECTOR-ACADEMY EDUCATION DIRECTOR [address] [place] [address] [address] [place] [address] 12/15/2024 3:00 PM CDT Office Visit [facility] - Internal Medicine [address] [facility] [address] [place] [phone] [place] [address] [place] [address] [address] [place] [address] 01/21/2025 10:00 AM CDT Office Visit [facility] - Nephrology [address] [place] [address], [place] [address] Teofilo Weinstein MD [address] [place] [address] [address] DIV OF NEPHROLOGY [place], [place] [phone] Health Maintenance Due Date Last Done Comments COLOGUARD (AGES 45-75) - COLON CA SCREENING 1960 CT COLONOGRAPHY - COLON CA SCREENING 1960 FIT - COLON CA SCREENING 1960 FLEX SIG - COLON CA SCREENING 1960 MEDICARE AWV 12 MONTHS 1960 PNEUMOCOCCAL VACCINE 50+ (1 of 2 - PCV) 1981 ZOSTER VACCINE (1 of 2) 2012 HEPATITIS B VACCINE (1 of 3 - Risk 3-dose series) 2022 Respiratory Syncytial Virus (RSV) Vaccine Pt: or over 60 yrs (1 - Risk 60-74 years 1-dose series) 2022 COVID-19 VACCINE ( season) 2024 06/24/2022, 10/18/2020, 09/27/2020 SCREENING FOR DIABETES 06/08/2027 , 09/12/2023, 09/12/2023, Additional history exists LIPID TESTING 09/12/2028 09/12/2023, 09/2022, 05/02/2021, Additional history exists COLON MONITORING 11/28/2028 11/28/2018, 11/28/2018 COLONOSCOPY - COLON CA SCREENING 11/28/2028 11/28/2018, 11/28/2018 Colorectal Cancer Screening 11/28/2028 DTAP/TDAP/TD VACCINES (2 - Td or Tdap) 08/19/2034 08/19/2024 HEPATITIS C SCREENING Completed 09/08/2018, 015 HIV SCREENING Completed 09/08/2018 INFLUENZA VACCINE Completed 05/06/2024, , 06/24/2022 DEPRESSION SCREENING Completed 08/20/2024 HIB VACCINE Aged Out No longer eligi ble based on patient's age to complete this topic HPV VACCINE Aged Out No longer eligi ble based on patient's age to complete this topic MENINGOCOCCAL (Group B) VACCINE SHARED DECISION-MAKING Aged Out No longer eligible based on patient's age to complete this topic MENINGOCOCCAL GROUPS A/C/Y/W VACCINE Aged Out No longer eligible based on patient's age to complete this topic Goals Goal Patient Goal Type Associated Problems [...] 3VW OR MORE Routine 08/31/2024 2:25 PM MASONRY CONTRACTOR Laceration of left index finger without foreign body without damage to nail, subsequent encounter Left hand pain CBC W AUTO DIFFERENTIAL STAT 08/19/2024 4:28 PM MASONRY CONTRACTOR XR HAND LEFT 3VW OR MORE STAT 08/19/2024 8:19 AM MASONRY CONTRACTOR Pain of left hand COMPREHENSIVE METABOLIC PANEL Routine 06/08/2024 1:33 PM MASONRY CONTRACTOR Alcoholic cirrhosis of liver with ascites (HCC) LIPID PROFILE Routine 09/12/2023 2:34 PM MASONRY CONTRACTOR Alcoholic cirrhosis, unspecified whether ascites present (HCC) Special screening for malignant neoplasm of prostate Fatigue, unspecified type Hyperglycemia ENDOSCOPY, COLON, DIAGNOSTIC Routine 11/28/2018 1:53 PM CDT HEPATITIS C AB SCREEN RFLX NAAT QUANT STAT 09/08/2018 11:34 AM MASONRY CONTRACTOR HIV-1 HIV-2 ANTIGEN/ANTIBODY STAT 09/08/2018 11:34 AM MASONRY CONTRACTOR from Last 3 Months or Most Recently Relevant to Health Maintenance Results * XR Hand Left 3Vw or More (08/31/2024 2:25 PM MASONRY CONTRACTOR) Only the most recent of2 resultswithin the time period is included. Anatomical Region Laterality Modality Wrist / Hand Digital Radiogra phy 09/01/2024 2:32 PM MASONRY CONTRACTOR Impressions 09/01/2024 2:35 PM MASONRY CONTRACTOR IMPRESSION: Satisfactory interval reduction of the dislocation at the level of the second PIP joint with the second proximal phalanx and middle phalanx appearing anatomically aligned on the present study. No obvious abnormal soft tissue gas seen on the present study. > Interpreting Provider: Dino Ozuna MD on 09/01/2024 2:35 PM Narrative 09/01/2024 2:35 PM MASONRY CONTRACTOR PROCEDURE: XR HAND LEFT 3VW OR MORE [...] CBC W AUTO DIFFERENTIAL (08/19/2024 4:28 PM MASONRY CONTRACTOR) WBC 3.2(L) 4.0 - 10.7 x10E9/L 08/19/2024 5:13 PM [facility] RBC Count 3.88(L) 4.30 - 5.80 x10E12/L 08/19/2024 5:13 PM [facility] Hemoglobin 11.5(L) 13.3 - 17.5 g/dL 08/19/2024 5:13 PM [facility] Hematocrit 35.6(L) 38.7 - 51.1 % 08/19/2024 5:13 PM [facility] MCV 91.8 80.0 - 98.0 fL 08/19/2024 5:13 PM [facility] MCH 29.6 26.7 - 33.6 pg 08/19/2024 5:13 PM [facility] MCHC 32.3 31.7 - 36.3 g/dL 08/19/2024 5:13 PM [facility] RDW-CV 16.6(H) 11.3 - 14.8 % 08/19/2024 5:13 PM [facility] Platelet Count 41(L) 150 - 420 x10E9/L 08/19/2024 5:13 PM [facility] MPV 12.2(H) 7.8 - 11.4 fL 08/19/2024 5:13 PM [facility] Neutrophil % 56.5 41.0 - 74.0 % 08/19/2024 5:13 PM [facility] Lymphocyte % 25.9 17.0 - 47.0 % 08/19/2024 5:13 PM [facility] Monocyte % 13.2(H) 3.0 - 11.0 % 08/19/2024 5:13 PM [facility] Eosinophil % 2.8 0.0 - 7.0 % 08/19/2024 5:13 PM [facility] Basophil % 1.3 0.0 - 1.6 % 08/19/2024 5:13 PM [facility] Immature Granulocytes % 0.3 0.0 - 1.0 % 08/19/2024 5:13 PM [facility] Neutrophil Absolute 1.79 1.60 - 7.50 x10E9/L 08/19/2024 5:13 PM [facility] Lymphocyte Absolute 0.82(L) 1.00 - 4.40 x10E9/L 08/19/2024 5:13 PM [facility] Monocyte Absolute 0.42 0.15 - 1.00 x10E9/L 08/19/2024 5:13 PM [facility] Eosinophil Absolute 0.09 0.00 - 0.60 x10E9/L 08/19/2024 5:13 PM [facility] Basophil Absolute 0.04 0.00 - 0.13 x10E9/L 08/19/2024 5:13 PM [facility] Blood BLOOD SPECIMEN / Unknown Venipuncture / Unknown 08/19/2024 4:28 PM MASONRY CONTRACTOR 08/19/2024 4:38 PM MASONRY CONTRACTOR Ashly Joy PA-C LAB - HEMATOL OGY ORDERABLES [facility] [address] [place] [address], [facility] [phone] * (ABNORMAL) COMPREHENSIVE METABOLIC PANEL (06/08/2024 1:33 PM MASONRY CONTRACTOR) BUN 23 7 - 26 mg/dL 06/08/2024 2:25 PM [facility] Creatinine 1.42(H) 0.71 - 1.16 mg/dL 06/08/2024 2:25 PM [facility] Sodium 138 136 - 145 mmol/L 06/08/2024 2:25 PM [facility] Potassium 4.3 3.5 - 4.5 mmol/L 06/08/2024 2:25 PM [facility] Chloride 106 98 - 107 mmol/L 06/08/2024 2:25 PM [facility] CO2 24 22 - 29 mmol/L 06/08/2024 2:25 PM [facility] Glucose 96 70 - 99 mg/dL 06/08/2024 2:25 PM [facility] Calcium 9.5 8.4 - 10.2 mg/dL 06/08/2024 2:25 PM [facility] Protein Total 7.6 6.0 - 8.3 g/dL 06/08/2024 2:25 PM [facility] Albumin 3.2(L) 3.4 - 5.0 g/dL 06/08/2024 2:25 PM [facility] Bilirubin Total 2.0(H) 0.2 - 1.2 mg/dL 06/08/2024 2:25 PM [facility] Alkaline Phosphatase 106 40 - 150 U/L 06/08/2024 2:25 PM [facility] ALT 25 5 - 55 U/L 06/08/2024 2:25 PM [facility] AST 42(H) 5 - 34 U/L 06/08/2024 2:25 PM [facility] Anion Gap 8 6 - 16 06/08/2024 2:25 PM [facility] BUN/Creatinine Ratio 16 7 - 23 06/08/2024 2:25 PM [facility] Osmolality Calculated 290 275 - 295 mOsm/kg 06/08/2024 2:25 PM [facility] Albumin/Globulin Ratio 0.7(L) 1.1 - 2.3 06/08/2024 2:25 PM [facility] eGFR by CKD-EPI 56(L) >=90 mL/min/1.7 3 m2 06/08/2024 2:25 PM [facility] Blood BLOOD SPECIMEN / Unknown Lab Venipuncture / Unknown 06/08/2024 1:33 PM MASONRY CONTRACTOR 06/08/2024 1:49 PM [facility] Deloris Ferris RESEARCH/PROGRAM DIRECTOR-ACADEMY EDUCATION DIRECTOR LAB - CHEMI STRY ORDERABLES [facility] [address] [place] [address], [facility] [phone] * LIPID PROFILE (09/12/2023 2:34 PM MASONRY CONTRACTOR) Cholesterol Total 160 <200 mg/dL 09/12/2023 3:19 PM [facility] HDL 59 >40 mg/dL 09/12/2023 3:19 PM [facility] Comment: ATP III Classification of HDL Cholesterol: <40 mg/dL: Considered a major risk factor. >60 mg/dL: Considered a negative risk factor. LDL Calculated 89 <100 mg/dL 09/12/2023 3:19 PM [facility] Comment: ATP III Classification of LDL Cholesterol: <100 mg/dL: Optimal 100 - 129 mg/dL: Near Optimal/Above Optimal 130 - 159 mg/dL: Borderline High 160 - 189 mg/dL: High >190 mg/dL: Very High Triglycerides 60 <150 mg/dL 09/12/2023 3:19 PM [facility] Comment: ATP III Classification of Triglycerides: <150 mg/dL: Normal 150 - 199 mg/dL: Borderline High 200 - 400 mg/dL: High >500 mg/dL: Very High Blood BLOOD SPECIMEN / Unknown Lab Venipuncture / Unknown 09/12/2023 2:34 PM MASONRY CONTRACTOR 09/12/2023 2:50 PM MASONRY CONTRACTOR Perfecto Contreras PA-C LAB - CAFETERIA ATTENDANT RY ORDERABLES [place] [id number] [place] [address], [facility] [phone] * ENDOSCOPY, COLON, DIAGNOSTIC (11/28/2018 1:53 PM CDT) Report Endoscopy POC Endoscopy Department Report _ Patient Name: Rhett Garner Procedure Date: 11/28/2018 1:53 PM Date of : 1960 Classification: Outpatient Gender: Male Ethnicity: Not or Race: White _ Providers: Julio Cesar Rodriguez MD: Procedure: Colonoscopy Indications: Screening for colorectal malignant neoplasm Medications: Monitored Anesthesia Care, Glucagon 0.6 mg IV Description of Procedure: After I obtained informed consent, the scope was passed under direct vision. Throughout the procedure, the patient's blood pressure, pulse, and oxygen saturations were monitored continuously. The [id number] was introduced through the anus and advanced [...] malignant neoplasm of colon CPT copyright 2016 [employer]. All rights reserved. The codes documented in this report are preliminary and upon money market clerk review may be revised to meet current compliance requirements. Julio Cesar Leonard, 11/28/2018 2:31:42 PM Note Initiated On: 11/28/2018 1:53 PM Number of Addenda: [address] 11/28/2018 1:53 PM CDT Julio Cesar Leonard MD GI PROCEDURE O RDERABLES Performing Organization Address [facility] de Phone Number [facility] * HIV-1 HIV-2 ANTIGEN/ANTIBODY (09/08/2018 11:34 AM MASONRY CONTRACTOR) HIV Antigen/Antibod y 1 & 2 Non-reacti ve Non-react titus 09/08/2018 12:17 PM MASONRY CONTRACTOR [facility] Comment: Neither HIV-1 p24 Antigen nor HIV-1/HIV-2 Antibodies are detected. Blood BLOOD SPECIMEN / Unknown Venipuncture / Unknown 09/08/2018 11:34 AM MASONRY CONTRACTOR 09/08/2018 11:37 AM MASONRY CONTRACTOR Maureen Wilcox MD LAB - HEMATOLOGY ORD ERABLES Performing Organization Address [facility] [place] [place] [address], [place] [phone] * HEPATITIS C AB SCREEN RFLX NAAT QUANT (09/08/2018 11:34 AM MASONRY CONTRACTOR) Hepatitis C Antibody Non-react titus Non-reac tive 09/08/2018 12:[address] [facility] Comment: Hepatitis C Antibody screen indicates no serologic evidence of past or current infection with Hepatitis C Virus. Patients with unexplained liver disease who are immunocompromised or suspected of having acute Hepatitis C infection may benefit from Nucleic Acid Test (CRYSTAL) for Hepatitis C Viral RNA to confirm Hepatitis C status. Blood BLOOD SPECIMEN / Unknown Venipuncture / Unknown 09/08/2018 11:34 AM MASONRY CONTRACTOR 09/08/2018 11:37 AM MASONRY CONTRACTOR Maureen Wilcox MD LAB - CHEMISTRY [facility]IN[facility] Organization Address City/State/ZIP Co de Phone Number [facility] [address] [phone] from Last 3 Months or Most Recently [...] 4:13 AM 09/13/2018 7:07 PM Care Teams Technical Support Analyst Relationship Specialty Start Date End Date Barron Adan MD [address] [place] [address] PCP - General Internal Medicine 08/31/24 Jt Collins, [employer]INT[place]-ACADEMY EDUCATION DIRECTOR [address] [place] [address] Nurse Practitioner 06/03/24
--- OUTSIDE RECORDS SUMMARY | 2024-10-10 15:16 | XMS_ITS | Patient Health Summary ---
Author Organization [facility] Address [address] [place] [address] Care Team Providers Care Financial Aid Name Role Phone Jt Collins APRN-CHIEF JUVENILE PROBATION OFFICER Unavailable [phone] Barron Adan MD Primary Care Provider [phone] Note from [facility],non-owned Affiliates and Associated Physician Practices is amultiple site organization consisting of ambulatory clinics and hospital sitesin [place], [place], [place] and [place]. This disclosure is being madepursuant to the Care Everywhere program and may not contain all information available regarding this patient. Last updated 18.[facility] Allergies No known active allergies Medications * Be aware that medications may not be up to date on this document. Alwaysverify current medications with the patient. * cyclobenzaprine (FLEXERIL) 5 MG tablet(Started 05/01/2021) nightly as needed * thiamine (Vitamin B-1) 250 MG tablet Take 1 (one) tablet by mouth once daily * omeprazole (PriLOSEC) 20 MG capsule(Started 07/08/2023) TAKE 1 CAPSULE BY MOUTH TWICE A DAY BREAKFAST AND DINNER 7 refills by 07/07/2024 * ciprofloxacin (Cipro) 500 MG tablet(Started 12/09/2023) TAKE 1 TABLET BY MOUTH EVERY DAY 3 refills by 12/08/2024 * spironolactone (Aldactone) 50 MG tablet(Started 02/07/2024) TAKE 2 TABLETS BY MOUTH ONCE DAILY 3 refills by 02/06/2025 * furosemide (Lasix) 20 MG tablet(Started 02/07/2024) TAKE 2 TABLETS BY MOUTH ONCE DAILY 3 refills by 02/06/2025 * nadolol (Corgard) 40 MG tablet(Started 03/23/2024) TAKE 1 TABLET BY MOUTH EVERY DAY 3 refills by 03/23/2025 * HYDROcodone-acetaminophen ([place]ord) 5-325 MG tablet(Started 08/19/2024) Take 1 (one) tablet by mouth every 6 hours as needed for Pain * gabapentin (Neurontin) 600 MG tablet(Started 08/31/2024) Take 1.5 (one and one-half) tablets by mouth 3 times daily Active Problems Problem Noted Date Diagnosed Date Laceration of left index fin armadno without foreign body without damage to nail 08/19/2024 Pre-transplant evaluation for liver transplant 0 10/24/2018 Ventral hernia, recurrent 10/14/2018 Hepatic encephalopathy 09/10/2018 Ascites 09/10/2018 Abdominal pain, right upper quadrant 09/08/2018 Liver lesion 09/05/2018 HTN (hypertension) 04/23/2018 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 Esophageal varices 08/29/2015 Tubular adenoma of colon 08/29/2015 Umbilical hernia 08/29/2015 Alcoholic cirrhosis 01/03/2015 Alcoholic cirrhosis of liver with ascites Secondary esophageal varices without bleeding Resolved Problems Problem Noted Date Diagnosed Date Resolved Date Small bowel obstruction 09/16/201809/26 Encounter for nasogastric (NG) tube placement 09/16/19 19 10/07/2020 Partial intestinal obstruction 10/07/2020 Immunizations * COVID - 19, HISTORIC VACCINE(Given 05/06/2024) * Covid Pfizer primary monovalent 12+ yr 0.3mL Purple cap(Given 10/18/2020, 09/27/2020) * INFLUENZA VACCINE, CELL CULTURE, TRIV. (FLUCELVAX TRIVALENT; 6MO+), 0.5 ML (CCIIV3)(Given 05/06/2024) * TDAP (7yrs+)(Given 08/19/2024) Social History Tobacco Use Types Packs/Day Years [...] Comments Blood Pressure 104/67 08/31/2024 2:36 PM HOSPITALIST PHYSICIAN Pulse 87 08/31/2024 2:36 PM HOSPITALIST PHYSICIAN Temperature 36.2 C (97.2 F) 08/31/2024 2:36 PM HOSPITALIST PHYSICIAN Respiratory Rate 18 08/19/2024 5:58 PM HOSPITALIST PHYSICIAN Oxygen Saturation 96% 08/31/2024 2:36 PM HOSPITALIST PHYSICIAN Inhaled Oxygen Concentration - - Weight 118.9 kg (262 lb 3.2 oz) 08/31/2024 2:36 PM HOSPITALIST PHYSICIAN Height 188 cm (6' 2 ) 08/31/2024 2:36 PM HOSPITALIST PHYSICIAN Body Mass Index 33.66 08/31/2024 2:36 PM HOSPITALIST PHYSICIAN Procedures * XR HAND LEFT 3VW OR MORE(Performed 08/31/2024) Performed for Laceration of left index finger without foreign body without damage to nail, subsequent encounter, Left hand pain * CBC W AUTO DIFFERENTIAL(Performed 08/19/2024) * XR HAND LEFT 3VW OR MORE(Performed 08/19/2024) Performed for Pain of left hand * PT-INR SLH(Performed 06/08/2024) Performed for Alcoholic cirrhosis of liver with ascites (HCC) * ALPHA FETOPROTEIN BLOOD TUMOR MARKER(Performed 06/08/2024) Performed for Alcoholic cirrhosis of liver with ascites (HCC) * COMPREHENSIVE METABOLIC PANEL(Performed 06/08/2024) Performed for Alcoholic cirrhosis of liver with ascites (HCC) * CBC W AUTO DIFFERENTIAL(Performed 06/08/2024) Performed for Alcoholic cirrhosis of liver with ascites (HCC) * US ABDOMEN LIMITED(Performed 06/08/2024) Performed for Alcoholic cirrhosis of liver with ascites (HCC) * PT-INR SLH(Performed 09/12/2023) Performed for Alcoholic cirrhosis of liver with ascites (HCC) * ALPHA FETOPROTEIN BLOOD TUMOR MARKER(Performed 09/12/2023) Performed for Alcoholic cirrhosis of liver with ascites (HCC) * COMPREHENSIVE METABOLIC PANEL(Performed 09/12/2023) Performed for Alcoholic cirrhosis of liver with ascites (HCC) * CBC W AUTO DIFFERENTIAL(Performed 09/12/2023) Performed for Alcoholic cirrhosis of liver with ascites (HCC) * LIPID PROFILE(Performed 09/12/2023) Performed for Alcoholic cirrhosis, unspecified whether ascites present (HCC), Special screening formalignant neoplasm of prostate, Fatigue, unspecified type, Hyperglycemia * HEMOGLOBIN A1C(Performed 09/12/2023) Performed for Alcoholic cirrhosis, unspecified whether ascites present (HCC), Special screening formalignant neoplasm of prostate, Fatigue, unspecified type, Hyperglycemia * FOLATE(Performed 09/12/2023) Performed for Alcoholic cirrhosis, unspecified whether ascites present (HCC), Special screening formalignant neoplasm of prostate, Fatigue, unspecified type, Hyperglycemia * VITAMIN B12(Performed 09/12/2023) Performed for Alcoholic cirrhosis, unspecified whether ascites present (HCC), Special screening formalignant neoplasm of prostate, Fatigue, unspecified type, Hyperglycemia * TSH(Performed 09/12/2023) Performed for Alcoholic cirrhosis, unspecified whether ascites present (HCC), Special screening formalignant neoplasm of prostate, Fatigue, unspecified type, Hyperglycemia * PROSTATE SPECIFIC ANTIGEN SCREEN(Performed 09/12/2023) Performed for Alcoholic cirrhosis, unspecified whether ascites present (HCC), Special screening formalignant neoplasm of prostate, Fatigue, unspecified type, Hyperglycemia * US ABDOMEN LIMITED(Performed 09/12/2023) Performed for Alcoholic cirrhosis of liver with ascites (HCC) * US ABDOMEN LIMITED(Performed 01/31/2023) Performed for Alcoholic cirrhosis of liver with ascites (HCC) * PHOSPHORUS BLOOD(Performed 01/31/2023) Performed for Alcoholic cirrhosis of liver with ascites (HCC), Stage 3a chronic kidney disease (HCC), Hypertension, unspecified type * PTH INTACT W/O CALCIUM(Performed 01/31/2023) Performed for Alcoholic cirrhosis of liver with ascites (HCC), Stage 3a chronic kidney disease (HCC), Hypertension, unspecified type * VITAMIN D 25-HYDROXY(Performed 01/31/2023) Performed for Alcoholic cirrhosis of liver with ascites (HCC), Stage 3a chronic kidney disease (HCC), Hypertension, unspecified type * PT-INR SLH(Performed 01/31/2023) Performed for Alcoholic cirrhosis of liver with ascites (HCC) * ALPHA FETOPROTEIN BLOOD TUMOR MARKER(Performed 01/31/2023) Performed for Alcoholic cirrhosis of liver with ascites (HCC) * COMPREHENSIVE METABOLIC PANEL(Performed 01/31/2023) Performed for Alcoholic cirrhosis of liver with ascites (HCC) * CBC W AUTO DIFFERENTIAL(Performed 01/31/2023) Performed for Alcoholic cirrhosis of liver with ascites (HCC) * URINALYSIS REFLEX TO MICROSCOPIC NO CULTURE(Performed 01/31/2023) Performed for Alcoholic cirrhosis of liver with ascites (HCC), Stage 3a chronic kidney disease (HCC), Hypertension, unspecified type * PT-INR SLH(Performed 12/26/2022) Performed for Alcoholic cirrhosis of liver with ascites (HCC) * COMPREHENSIVE METABOLIC PANEL(Performed 12/26/2022) Performed for Alcoholic cirrhosis of liver with ascites (HCC) * CBC W AUTO DIFFERENTIAL(Performed 12/26/2022) Performed for Alcoholic cirrhosis of liver with ascites (HCC) * COMPREHENSIVE METABOLIC PANEL(Performed 09/18/2022) Performed for Alcoholic cirrhosis of liver with ascites (HCC) * CBC W AUTO DIFFERENTIAL(Performed 09/18/2022) Performed for Alcoholic cirrhosis of liver with ascites (HCC) * PT-INR SLH(Performed 09/18/2022) Performed for Alcoholic cirrhosis of liver with ascites (HCC) * MRI ABDOMEN WWO CONTRAST(Performed 09/01/2022) Performed for Alcoholic cirrhosis of liver with ascites (HCC) * VITAMIN B12(Performed 08/31/2022) Performed for Overweight, Other fatigue * BASIC METABOLIC PANEL (CALCIUM TOTAL)(Performed 08/31/2022) Performed for Alcoholic cirrhosis of liver with ascites (HCC) * TSH REFLEX FREE T4(Performed 08/31/2022) Performed for Overweight, Other fatigue * FOLATE(Performed 08/31/2022) Performed for Overweight, Other fatigue * LIPID PROFILE(Performed 08/31/2022) Performed for Overweight, Other fatigue * PT-INR SLH(Performed 08/21/2022) Performed for Alcoholic cirrhosis of liver with ascites (HCC) * PHOSPHATIDYLETHANOL (PETH)(Performed 08/21/2022) Performed for Alcoholic cirrhosis of liver with ascites (HCC) * COMPREHENSIVE METABOLIC PANEL(Performed 08/21/2022) Performed for Alcoholic cirrhosis of liver with ascites (HCC) * CBC W AUTO DIFFERENTIAL(Performed 08/21/2022) Performed for Alcoholic cirrhosis of liver with ascites (HCC) * US ABDOMEN LIMITED(Performed 08/02/2022) Performed for Alcoholic cirrhosis of liver with ascites (HCC) * ALPHA FETOPROTEIN BLOOD TUMOR MARKER(Performed 08/02/2022) Performed for Alcoholic cirrhosis of liver with ascites (HCC) * COMPREHENSIVE METABOLIC PANEL(Performed 08/02/2022) Performed for Alcoholic cirrhosis of liver with ascites (HCC) * CBC W AUTO DIFFERENTIAL(Performed 08/02/2022) Performed for Alcoholic cirrhosis of liver with ascites (HCC) * PT-INR SLH(Performed 08/02/2022) Performed for Alcoholic cirrhosis of liver with ascites (HCC) * ALPHA FETOPROTEIN BLOOD TUMOR MARKER(Performed 11/28/2021) Performed for Alcoholic cirrhosis of liver with ascites (HCC) * CBC W AUTO DIFFERENTIAL(Performed 11/28/2021) Performed for Alcoholic cirrhosis of liver with ascites (HCC) * COMPREHENSIVE METABOLIC PANEL(Performed 11/28/2021) Performed for Alcoholic cirrhosis of liver with ascites (HCC) * US ABDOMEN LIMITED(Performed 11/28/2021) Performed for Alcoholic cirrhosis of liver with ascites (HCC) * US ABDOMEN LIMITED(Performed 05/15/2021) Performed for Alcoholic cirrhosis of liver with ascites (HCC) * PT-INR SLH(Performed 05/15/2021) Performed for Alcoholic cirrhosis of liver with ascites (HCC) * ALPHA FETOPROTEIN BLOOD TUMOR MARKER(Performed 05/15/2021) Performed for Alcoholic cirrhosis of liver with ascites (HCC) * COMPREHENSIVE METABOLIC PANEL(Performed 05/15/2021) Performed for Alcoholic cirrhosis of liver with ascites (HCC) * CBC W AUTO DIFFERENTIAL(Performed 05/15/2021) Performed for Alcoholic cirrhosis of liver with ascites (HCC) * LIPID PROFILE(Performed 05/02/2021) Performed for Alcoholic cirrhosis of liver with ascites (HCC) * PT-INR SLH(Performed 05/02/2021) Performed for Alcoholic cirrhosis of liver with ascites (HCC) * ALPHA FETOPROTEIN BLOOD TUMOR MARKER(Performed 05/02/2021) Performed for Alcoholic cirrhosis of liver with ascites (HCC) * COMPREHENSIVE METABOLIC PANEL(Performed 05/02/2021) Performed for Alcoholic cirrhosis of liver with ascites (HCC) * CBC W AUTO DIFFERENTIAL(Performed 05/02/2021) Performed for Alcoholic cirrhosis of liver with ascites (HCC) * UT ED EGD FLEX TRANSORAL DX(Performed 11/25/2020) Performed for Esophageal varices without bleeding, unspecified esophageal varices type (HCC) * EGD(Performed 11/25/2020) * COMPREHENSIVE METABOLIC PANEL(Performed 10/14/2020) Performed for Alcoholic cirrhosis of liver with ascites (HCC) * US ABDOMEN LIMITED(Performed 10/14/2020) Performed for Alcoholic cirrhosis of liver with ascites (HCC) * PATHOLOGY TISSUE(Performed 10/07/2020) Performed for Alcoholic cirrhosis of liver with ascites (HCC), Secondary esophageal varices withoutbleeding (HCC) * UT ED EGD FLEX TRANSORAL DX(Performed 10/07/2020) Performed for Alcoholic cirrhosis of liver with ascites (HCC), Secondary esophageal varices withoutbleeding (HCC) * EGD(Performed 10/07/2020) * PT-INR SLH(Performed 10/04/2020) Performed for Alcoholic cirrhosis of liver with ascites (HCC) * ALPHA FETOPROTEIN BLOOD TUMOR MARKER(Performed 10/04/2020) Performed for Alcoholic cirrhosis of liver with ascites (HCC) * COMPREHENSIVE METABOLIC PANEL(Performed 10/04/2020) Performed for Alcoholic cirrhosis of liver with ascites (HCC) * CBC W AUTO DIFFERENTIAL(Performed 10/04/2020) Performed for Alcoholic cirrhosis of liver with ascites (HCC) * ALPHA FETOPROTEIN BLOOD TUMOR MARKER(Performed 04/12/2020) Performed for Alcoholic cirrhosis of liver with ascites (HCC), Secondary esophageal varices withoutbleeding (HCC), Ascites due to alcoholic cirrhosis (HCC) * PT-INR SLH(Performed 04/12/2020) Performed for Alcoholic cirrhosis of liver with ascites (HCC), Secondary esophageal varices withoutbleeding (HCC), Ascites due to alcoholic cirrhosis (HCC) * COMPREHENSIVE METABOLIC PANEL(Performed 04/12/2020) Performed for Alcoholic cirrhosis of liver with ascites (HCC), Secondary esophageal varices withoutbleeding (HCC), Ascites due to alcoholic cirrhosis (HCC) * CBC W AUTO DIFFERENTIAL(Performed 04/12/2020) Performed for Alcoholic cirrhosis of liver with ascites (HCC), Secondary esophageal varices withoutbleeding (HCC), Ascites due to alcoholic cirrhosis (HCC) * CARDIAC EKG ORDER(Performed 03/18/2020) * US ABDOMEN LIMITED(Performed 03/02/2020) Performed for Alcoholic cirrhosis of liver with ascites (HCC) * PT-INR SLH(Performed 03/03/2019) Performed for Alcoholic cirrhosis of liver with ascites (HCC) * COMPREHENSIVE METABOLIC PANEL(Performed 03/03/2019) Performed for Alcoholic cirrhosis of liver with ascites (HCC) * CBC W AUTO DIFFERENTIAL(Performed 03/03/2019) Performed for Alcoholic cirrhosis of liver with ascites (HCC) * US ABDOMEN LIMITED(Performed 03/03/2019) Performed for Alcoholic cirrhosis of liver with ascites (HCC) * LAB MISC TEST(Performed 12/01/2018) Performed for Other partial intestinal obstruction (HCC), Encounter for nasogastric (NG) tube placement * URINE DRUG SCREEN IMMUNOASSAY(Performed 12/01/2018) Performed for Pre-transplant evaluation for liver transplant, History of alcohol abuse, Alcoholic cirrhosis, unspecified whether ascites present (HCC) * RHORO-8-[id number] BLOOD(Performed 12/01/2018) Performed for Pre-transplant evaluation for liver transplant, History of alcohol abuse, Alcoholic cirrhosis, unspecified whether ascites present (HCC) * NICOTINE + METABOLITES BLOOD(Performed 12/01/2018) Performed for Pre-transplant evaluation for liver transplant, History of alcohol abuse, Alcoholic cirrhosis, unspecified whether ascites present (HCC) * ALCOHOL ETHYL BLOOD(Performed 12/01/2018) Performed for Pre-transplant evaluation for liver transplant, History of alcohol abuse, Alcoholic cirrhosis, unspecified whether ascites present (HCC) * PT-INR SLH(Performed 12/01/2018) Performed for Pre-transplant evaluation for liver transplant, History of alcohol abuse, Alcoholic cirrhosis, unspecified whether ascites present (HCC) * COMPREHENSIVE METABOLIC PANEL(Performed 12/01/2018) Performed for Pre-transplant evaluation for liver transplant, History of alcohol abuse, Alcoholic cirrhosis, unspecified whether ascites present (HCC) * ENDOSCOPY, COLON, DIAGNOSTIC(Performed 11/28/2018) * ESOPHAGOGASTRODUODENOSCOPY (EGD) DIAGNOSTIC(Performed 11/28/2018) Performed for Pre-transplant evaluation for liver transplant, History of alcohol abuse, Secondary esophageal varices with bleeding (HCC) * COLONOSCOPY DIAGNOSTIC(Performed 11/28/2018) Performed for Pre-transplant evaluation for liver transplant, History of alcohol abuse, Secondary esophageal varices with bleeding (HCC) * EGD(Performed 11/28/2018) Performed for Alcoholic cirrhosis of liver with ascites (HCC), Secondary esophageal varices withoutbleeding (HCC) * PT-INR SLH(Performed 11/26/2018) Performed for Alcoholic cirrhosis of liver with ascites (HCC) * COMPREHENSIVE METABOLIC PANEL(Performed 11/26/2018) Performed for Alcoholic cirrhosis of liver with ascites (HCC) * CBC W AUTO DIFFERENTIAL(Performed 11/26/2018) Performed for Alcoholic cirrhosis of liver with ascites (HCC) * CARDIAC EKG ORDER(Performed 11/11/2018) * DEXA BONE DENSITY AXIAL SKELETON(Performed 11/10/2018) Performed for Pre-transplant evaluation for liver transplant, History of alcohol abuse * CARDIAC EKG ORDER(Performed 11/05/2018) * ECHO STRESS COLOR FLOW AND DOPPLER(Performed 11/04/2018) Performed for Pre-transplant evaluation for liver transplant, History of alcohol abuse * URINE DRUG SCREEN IMMUNOASSAY(Performed 11/04/2018) Performed for Pre-transplant evaluation for liver transplant, History of alcohol abuse * QUANTIFERON-TB GOLD PLUS 4-TUBE(Performed 11/04/2018) Performed for Pre-transplant evaluation for liver transplant, History of alcohol abuse * MITOCHONDRIAL ANTIBODY SCREEN(Performed 11/04/2018) Performed for Pre-transplant evaluation for liver transplant, History of alcohol abuse * SMOOTH MUSCLE ANTIBODY(Performed 11/04/2018) Performed for Pre-transplant evaluation for liver transplant, History of alcohol abuse * ALCOHOL ETHYL BLOOD(Performed 11/04/2018) Performed for Alcoholic cirrhosis of liver with ascites (HCC) * COMPREHENSIVE METABOLIC PANEL(Performed 11/04/2018) Performed for Alcoholic cirrhosis of liver with ascites (HCC) * CBC W AUTO DIFFERENTIAL(Performed 11/04/2018) Performed for Alcoholic cirrhosis of liver with ascites (HCC) * NICOTINE + METABOLITES BLOOD(Performed 11/04/2018) Performed for Pre-transplant evaluation for liver transplant, History of alcohol abuse * HEPATITIS B SURFACE ANTIBODY(Performed 11/04/2018) Performed for Pre-transplant evaluation for liver transplant, History of alcohol abuse * HEPATITIS B CORE ANTIBODY TOTAL(Performed 11/04/2018) Performed for Pre-transplant evaluation for liver transplant, History of alcohol abuse * HEPATITIS B SURFACE ANTIGEN W RFLX CONFIRMATION(Performed 11/04/2018) Performed for Pre-transplant evaluation for liver transplant, History of alcohol abuse * HEPATITIS A ANTIBODY(Performed 11/04/2018) Performed for Pre-transplant evaluation for liver transplant, History of alcohol abuse * ALPHA FETOPROTEIN BLOOD TUMOR MARKER(Performed 11/04/2018) Performed for Liver lesion * PT-INR SLH(Performed 11/04/2018) Performed for Alcoholic cirrhosis of liver without ascites (HCC) * ENDOTRACHEAL TUBE NOTE(Performed 10/29/2018) * LAB RESULTS ORDER(Performed 10/27/2018) * APHERESIS/TRANSFUSION ORDER(Performed 10/27/2018) * ECHO COMPLETE W BUBBLE STUDY(Performed 10/24/2018) Performed for Alcoholic cirrhosis of liver with ascites (HCC) * DIFFERENTIAL MANUAL(Performed 10/24/2018) Performed for Alcoholic cirrhosis of liver with ascites (HCC) * BASIC METABOLIC PANEL (CALCIUM TOTAL)(Performed 10/24/2018) * PHOSPHORUS BLOOD(Performed 10/24/2018) * MAGNESIUM BLOOD(Performed 10/24/2018) * PT-INR SLH(Performed 10/24/2018) Performed for Alcoholic cirrhosis of liver with ascites (HCC) * HEPATIC FUNCTION PANEL(Performed 10/24/2018) Performed for Alcoholic cirrhosis of liver with ascites (HCC) * CBC W AUTO DIFFERENTIAL(Performed 10/24/2018) Performed for Alcoholic cirrhosis of liver with ascites (HCC) * LAB MISC TEST (NOT BLOOD)(Performed 10/23/2018) * PT-INR SLH(Performed 10/23/2018) Performed for Alcoholic cirrhosis of liver with ascites (HCC) * CBC W AUTO DIFFERENTIAL(Performed 10/23/2018) Performed for Alcoholic cirrhosis of liver with ascites (HCC) * BASIC METABOLIC PANEL (CALCIUM TOTAL)(Performed 10/23/2018) * PHOSPHORUS BLOOD(Performed 10/23/2018) * MAGNESIUM BLOOD(Performed 10/23/2018) * HEPATIC FUNCTION PANEL(Performed 10/23/2018) Performed for Alcoholic cirrhosis of liver with ascites (HCC) * XR PANOREX(Performed 10/22/2018) Performed for Alcoholic cirrhosis of liver with ascites (HCC) * XR CHEST 2VW(Performed 10/22/2018) Performed for Alcoholic cirrhosis of liver with ascites (HCC) * PREPARE RBC LEUKOREDUCED UNIT(Performed 10/22/2018) * TYPE + SCREEN PANEL(Performed 10/22/2018) * STRONGYLOIDES ANTIBODY IGG(Performed 10/22/2018) * FARZAD-BENNETT VIRUS AB TO EARLY AG IGG(Performed 10/22/2018) * DELPHINE BLOOD SCREEN W/REFLEX TITER(Performed 10/22/2018) * DIFFERENTIAL MANUAL(Performed 10/22/2018) Performed for Alcoholic cirrhosis of liver with ascites (HCC) * TOXOPLASMA GONDII ANTIBODY IGG(Performed 10/22/2018) * VARICELLA ZOSTER ANTIBODY IGG(Performed 10/22/2018) * RUBEOLA ANTIBODY IGG(Performed 10/22/2018) * PSA FREE(Performed 10/22/2018) * NICOTINE + METABOLITES BLOOD(Performed 10/22/2018) * SYPHILIS ANTIBODY CASCADING REFLEX(Performed 10/22/2018) * CYTOMEGALOVIRUS ANTIBODY IGG BLOOD(Performed 10/22/2018) * SMOOTH MUSCLE ANTIBODY(Performed 10/22/2018) * TRANSFERRIN(Performed 10/22/2018) * IRON BLOOD(Performed 10/22/2018) * HEMOGLOBIN A1C(Performed 10/22/2018) * LIPID PROFILE(Performed 10/22/2018) * PHOSPHORUS BLOOD(Performed 10/22/2018) * MAGNESIUM BLOOD(Performed 10/22/2018) * PT-INR SLH(Performed 10/22/2018) Performed for Alcoholic cirrhosis of liver with ascites (HCC) * HEPATIC FUNCTION PANEL(Performed 10/22/2018) Performed for Alcoholic cirrhosis of liver with ascites (HCC) * CBC W AUTO DIFFERENTIAL(Performed 10/22/2018) Performed for Alcoholic cirrhosis of liver with ascites (HCC) * BASIC METABOLIC PANEL (CALCIUM TOTAL)(Performed 10/22/2018) * BASIC METABOLIC PANEL (CALCIUM TOTAL)(Performed 10/21/2018) * CBC W/O DIFFERENTIAL(Performed 10/21/2018) * PHOSPHORUS BLOOD(Performed 10/21/2018) * MAGNESIUM BLOOD(Performed 10/21/2018) * PT-INR SLH(Performed 10/21/2018) Performed for Alcoholic cirrhosis of liver with ascites (HCC) * HEPATIC FUNCTION PANEL(Performed 10/21/2018) Performed for Alcoholic cirrhosis of liver with ascites (HCC) * CBC W AUTO DIFFERENTIAL(Performed 10/21/2018) Performed for Alcoholic cirrhosis of liver with ascites (HCC) * BASIC METABOLIC PANEL (CALCIUM TOTAL)(Performed 10/21/2018) * BASIC METABOLIC PANEL (CALCIUM TOTAL)(Performed 10/20/2018) * CBC W/O DIFFERENTIAL(Performed 10/20/2018) * PT EVAL AND TREAT(Performed 10/20/2018) * OT EVAL AND TREAT(Performed 10/20/2018) * XR ABDOMEN KUB PORTABLE(Performed 10/20/2018) Performed for Alcoholic cirrhosis of liver with ascites (HCC) * PT-INR SLH(Performed 10/20/2018) Performed for Alcoholic cirrhosis of liver with ascites (HCC) * HEPATIC FUNCTION PANEL(Performed 10/20/2018) Performed for Alcoholic cirrhosis of liver with ascites (HCC) * CBC W AUTO DIFFERENTIAL(Performed 10/20/2018) Performed for Alcoholic cirrhosis of liver with ascites (HCC) * XR CHEST 1VW PORTABLE(Performed 10/20/2018) Performed for Ventral hernia, recurrent * BASIC METABOLIC PANEL (CALCIUM TOTAL)(Performed 10/20/2018) * CBC W/O DIFFERENTIAL(Performed 10/19/2018) * BASIC METABOLIC PANEL (CALCIUM TOTAL)(Performed 10/19/2018) * BASIC METABOLIC PANEL (CALCIUM TOTAL)(Performed 10/19/2018) * XR ABDOMEN KUB PORTABLE(Performed 10/19/2018) Performed for Ventral hernia, recurrent * XR ABDOMEN KUB PORTABLE(Performed 10/19/2018) Performed for Vomiting without nausea, intractability of vomiting not specified, unspecified vomiting type * PT-INR SLH(Performed 10/19/2018) Performed for Alcoholic cirrhosis of liver with ascites (HCC) * HEPATIC FUNCTION PANEL(Performed 10/19/2018) Performed for Alcoholic cirrhosis of liver with ascites (HCC) * CBC W AUTO DIFFERENTIAL(Performed 10/19/2018) Performed for Alcoholic cirrhosis of liver with ascites (HCC) * BASIC METABOLIC PANEL (CALCIUM TOTAL)(Performed 10/19/2018) * ENDOTRACHEAL TUBE NOTE(Performed 10/18/2018) * BASIC METABOLIC PANEL (CALCIUM TOTAL)(Performed 10/18/2018) * CULTURE FLUID+GRAM STAIN(Performed 10/18/2018) Performed for Ventral hernia, recurrent * CULTURE ANAEROBE(Performed 10/18/2018) * LAPAROTOMY EXPLORATORY(Performed 10/18/2018) Performed for Deferred diagnosis on axis I * PREPARE RBC LEUKOREDUCED UNIT(Performed 10/18/2018) Performed for Alcoholic cirrhosis of liver with ascites (HCC) * TYPE + SCREEN PANEL(Performed 10/18/2018) * BASIC METABOLIC PANEL (CALCIUM TOTAL)(Performed 10/18/2018) * PT-INR [facility](Performed 10/18/2018) Performed for Alcoholic cirrhosis of liver with ascites (HCC) * HEPATIC FUNCTION PANEL(Performed 10/18/2018) Performed for Alcoholic cirrhosis of liver with ascites (HCC) * CBC W AUTO DIFFERENTIAL(Performed 10/18/2018) Performed for Alcoholic cirrhosis of liver with ascites (HCC) * BASIC METABOLIC PANEL (CALCIUM TOTAL)(Performed 10/17/2018) * BASIC METABOLIC PANEL (CALCIUM TOTAL)(Performed 10/17/2018) * CREATININE URINE RANDOM(Performed 10/17/2018) * SODIUM URINE RANDOM(Performed 10/17/2018) * OSMOLALITY URINE(Performed 10/17/2018) * BASIC METABOLIC PANEL (CALCIUM TOTAL)(Performed 10/17/2018) * OSMOLALITY BLOOD(Performed 10/17/2018) * DIFFERENTIAL MANUAL(Performed 10/17/2018) Performed for Alcoholic cirrhosis of liver with ascites (HCC) * PT-INR [facility](Performed 10/17/2018) Performed for Alcoholic cirrhosis of liver with ascites (HCC) * HEPATIC FUNCTION PANEL(Performed 10/17/2018) Performed for Alcoholic cirrhosis of liver with ascites (HCC) * BASIC METABOLIC PANEL (CALCIUM TOTAL)(Performed 10/17/2018) Performed for Alcoholic cirrhosis of liver with ascites (HCC) * CBC W AUTO DIFFERENTIAL(Performed 10/17/2018) Performed for Alcoholic cirrhosis of liver with ascites (HCC) * XR ABDOMEN KUB(Performed 10/16/2018) Performed for Ventral hernia, recurrent * XR ABDOMEN KUB(Performed 10/16/2018) Performed for Ventral hernia, recurrent * PT EVAL AND TREAT(Performed 10/16/2018) * OT EVAL AND TREAT(Performed 10/16/2018) * PT-INR [facility](Performed 10/16/2018) Performed for Alcoholic cirrhosis of liver with ascites (HCC) * HEPATIC FUNCTION PANEL(Performed 10/16/2018) Performed for Alcoholic cirrhosis of liver with ascites (HCC) * BASIC METABOLIC PANEL (CALCIUM TOTAL)(Performed 10/16/2018) Performed for Alcoholic cirrhosis of liver with ascites (HCC) * CBC W AUTO DIFFERENTIAL(Performed 10/16/2018) Performed for Alcoholic cirrhosis of liver with ascites (HCC) * CULTURE FLUID+GRAM STAIN(Performed 10/15/2018) Performed for Alcoholic cirrhosis of liver with ascites (HCC) * PATHOLOGY TISSUE(Performed 10/15/2018) Performed for Umbilical hernia without obstruction and without gangrene * CULTURE ANAEROBE(Performed 10/15/2018) Performed for Alcoholic cirrhosis of liver with ascites (HCC) * REPAIR UMBILICAL HERNIA(Performed 10/15/2018) Performed for Umbilical hernia without obstruction and without gangrene * DIFFERENTIAL MANUAL FLUID(Performed 10/15/2018) Performed for Alcoholic cirrhosis of liver with ascites (HCC) * CELL COUNT W DIFFERENTIAL FLUID(Performed 10/15/2018) Performed for Alcoholic cirrhosis of liver with ascites (HCC) * CULTURE FLUID+GRAM STAIN(Performed 10/15/2018) Performed for Alcoholic cirrhosis of liver with ascites (HCC) * CULTURE ANAEROBE(Performed 10/15/2018) Performed for Alcoholic cirrhosis of liver with ascites (HCC) * URINALYSIS REFLEX TO MICROSCOPIC NO CULTURE(Performed 10/15/2018) Performed for Ventral hernia, recurrent * CULTURE URINE(Performed 10/15/2018) Performed for Ventral hernia, recurrent * LACTIC ACID BLOOD(Performed 10/15/2018) Performed for Ventral hernia, recurrent * PHOSPHORUS BLOOD(Performed 10/15/2018) Performed for Ventral hernia, recurrent * MAGNESIUM BLOOD(Performed 10/15/2018) Performed for Ventral hernia, recurrent * COMPREHENSIVE METABOLIC PANEL(Performed 10/15/2018) Performed for Ventral hernia, recurrent * CULTURE BLOOD(Performed 10/15/2018) Performed for Ventral hernia, recurrent * CULTURE BLOOD(Performed 10/15/2018) Performed for Ventral hernia, recurrent * PTT [facility](Performed 10/15/2018) Performed for Ventral hernia, recurrent * PT-INR [facility](Performed 10/15/2018) Performed for Ventral hernia, recurrent * CBC W AUTO DIFFERENTIAL(Performed 10/15/2018) Performed for Ventral hernia, recurrent * PT-INR [facility](Performed 10/14/2018) * TYPE + SCREEN PANEL(Performed 10/14/2018) * COMPREHENSIVE METABOLIC PANEL(Performed 10/14/2018) * CBC W AUTO DIFFERENTIAL(Performed 10/14/2018) * PT-INR [facility](Performed 10/07/2018) Performed for Alcoholic cirrhosis of liver with ascites (HCC) * ALCOHOL ETHYL BLOOD(Performed 10/07/2018) Performed for Alcoholic cirrhosis of liver with ascites (HCC) * COMPREHENSIVE METABOLIC PANEL(Performed 10/07/2018) Performed for Alcoholic cirrhosis of liver with ascites (HCC) * CBC W AUTO DIFFERENTIAL(Performed 10/07/2018) Performed for Alcoholic cirrhosis of liver with ascites (HCC) * ALPHA FETOPROTEIN BLOOD TUMOR MARKER(Performed 10/07/2018) Performed for Alcoholic cirrhosis of liver with ascites (HCC) * ESOPHAGOGASTRODUODENOSCOPY (EGD) DIAGNOSTIC(Performed 10/03/2018) Performed for Alcoholic cirrhosis of liver with ascites (HCC) * EGD(Performed 10/03/2018) * MRI ABDOMEN WWO CONTRAST(Performed 09/22/2018) Performed for Alcoholic cirrhosis of liver without ascites (HCC) * GLUCOSE - POINT OF CARE(Performed 09/19/2018) * GLUCOSE - POINT OF CARE(Performed 09/19/2018) * GLUCOSE - POINT OF CARE(Performed 09/19/2018) * PHOSPHORUS BLOOD(Performed 09/19/2018) * MAGNESIUM BLOOD(Performed 09/19/2018) * COMPREHENSIVE METABOLIC PANEL(Performed 09/19/2018) * CBC W AUTO DIFFERENTIAL(Performed 09/19/2018) * GLUCOSE - POINT OF CARE(Performed 09/18/2018) * GLUCOSE - POINT OF CARE(Performed 09/18/2018) * GLUCOSE - POINT OF CARE(Performed 09/18/2018) * GLUCOSE - POINT OF CARE(Performed 09/18/2018) * GLUCOSE - POINT OF CARE(Performed 09/18/2018) * GLUCOSE - POINT OF CARE(Performed 09/18/2018) * PTT [facility](Performed 09/17/2018) * PT-INR [facility](Performed 09/17/2018) * MAGNESIUM BLOOD(Performed 09/17/2018) * COMPREHENSIVE METABOLIC PANEL(Performed 09/17/2018) * CBC W AUTO DIFFERENTIAL(Performed 09/17/2018) * GLUCOSE - POINT OF CARE(Performed 09/17/2018) * GLUCOSE - POINT OF CARE(Performed 09/17/2018) * FL UGI W SM BOWEL FOLLOW THRU(Performed 09/17/2018) Performed for Small bowel obstruction (HCC) * GLUCOSE - POINT OF CARE(Performed 09/17/2018) * CARDIAC EKG ORDER(Performed 09/17/2018) * GLUCOSE - POINT OF CARE(Performed 09/17/2018) * GLUCOSE - POINT OF CARE(Performed 09/17/2018) * XR ABDOMEN KUB PORTABLE(Performed 09/16/2018) Performed for Encounter for nasogastric (NG) tube placement * CT ABDOMEN PELVIS W CONTRAST(Performed 09/16/2018) Performed for Small bowel obstruction (HCC) * PT-INR [facility](Performed 09/16/2018) * URINALYSIS W/MICROSCOPIC NO CULTURE(Performed 09/16/2018) * XR ABDOMEN KUB PORTABLE(Performed 09/16/2018) Performed for Encounter for nasogastric (NG) tube placement * XR ABD OBSTRUCTION SERIES 2VW(Performed 09/16/2018) Performed for Abdominal pain, generalized, Vomiting without nausea, intractability of vomiting not specified, unspecified vomiting type * LIPASE BLOOD(Performed 09/16/2018) * LACTIC ACID BLOOD(Performed 09/16/2018) * AMMONIA(Performed 09/16/2018) * COMPREHENSIVE METABOLIC PANEL(Performed 09/16/2018) * CBC W AUTO DIFFERENTIAL(Performed 09/16/2018) * ED PARACENTESIS(Performed 09/16/2018) * MAGNESIUM BLOOD(Performed 09/13/2018) * COMPREHENSIVE METABOLIC PANEL(Performed 09/13/2018) * CBC W/O DIFFERENTIAL(Performed 09/13/2018) * MAGNESIUM BLOOD(Performed 09/12/2018) * COMPREHENSIVE METABOLIC PANEL(Performed 09/12/2018) * CBC W/O DIFFERENTIAL(Performed 09/12/2018) * XR ABDOMEN KUB PORTABLE(Performed 09/11/2018) Performed for Partial intestinal obstruction, unspecified cause (HCC) * MAGNESIUM BLOOD(Performed 09/11/2018) * COMPREHENSIVE METABOLIC PANEL(Performed 09/11/2018) * CBC W/O DIFFERENTIAL(Performed 09/11/2018) * XR ABDOMEN KUB(Performed 09/10/2018) Performed for Partial intestinal obstruction, unspecified cause (HCC) * URINALYSIS REFLEX TO MICROSCOPIC NO CULTURE(Performed 09/10/2018) * CULTURE URINE(Performed 09/10/2018) * CULTURE BLOOD(Performed 09/10/2018) * CULTURE BLOOD(Performed 09/10/2018) * BILIRUBIN DIRECT(Performed 09/10/2018) * AMMONIA(Performed 09/10/2018) * EKG 12-LEAD(Performed 09/10/2018) Performed for Tachycardia * XR CHEST 1VW PORTABLE(Performed 09/10/2018) Performed for Tachycardia * XR ABDOMEN KUB(Performed 09/10/2018) Performed for Partial intestinal obstruction, unspecified cause (HCC) * PT EVAL AND TREAT(Performed 09/10/2018) * CBC W AUTO DIFFERENTIAL(Performed 09/10/2018) * BASIC METABOLIC PANEL (CALCIUM TOTAL)(Performed 09/10/2018) * PHOSPHORUS BLOOD(Performed 09/09/2018) * MAGNESIUM BLOOD(Performed 09/09/2018) * PT-INR [facility](Performed 09/09/2018) * BASIC METABOLIC PANEL (CALCIUM TOTAL)(Performed 09/09/2018) * CBC W AUTO DIFFERENTIAL(Performed 09/09/2018) * LACTIC ACID BLOOD(Performed 09/08/2018) * DIFFERENTIAL MANUAL FLUID(Performed 09/08/2018) * LDH BODY FLUID(Performed 09/08/2018) * PROTEIN BODY FLUID(Performed 09/08/2018) * GLUCOSE BODY FLUID(Performed 09/08/2018) * CELL COUNT W DIFFERENTIAL FLUID(Performed 09/08/2018) * CULTURE FLUID+GRAM STAIN(Performed 09/08/2018) * URINALYSIS W/MICROSCOPIC NO CULTURE(Performed 09/08/2018) * PT-INR [facility](Performed 09/08/2018) * LACTIC ACID BLOOD(Performed 09/08/2018) * TROPONIN I(Performed 09/08/2018) * LIPASE BLOOD(Performed 09/08/2018) * CT ABDOMEN PELVIS W CONTRAST(Performed 09/08/2018) Performed for Abdominal pain, right upper quadrant * XR CHEST 2VW(Performed 09/08/2018) Performed for Abdominal pain, right upper quadrant * HEPATITIS C AB SCREEN RFLX NAAT QUANT(Performed 09/08/2018) * HIV-1 HIV-2 ANTIGEN/ANTIBODY(Performed 09/08/2018) * COMPREHENSIVE METABOLIC PANEL(Performed 09/08/2018) * CBC W AUTO DIFFERENTIAL(Performed 09/08/2018) * US ABDOMEN LIMITED(Performed 09/04/2018) Performed for Alcoholic cirrhosis of liver with ascites (HCC) * PT-INR(Performed 08/18/2018) * CBC W AUTO DIFFERENTIAL(Performed 08/18/2018) * ALCOHOL ETHYL BLOOD(Performed 08/18/2018) * COMPREHENSIVE METABOLIC PANEL(Performed 08/18/2018) * US ABDOMEN LIMITED(Performed 03/04/2017) * EKG 12-LEAD(Performed 03/04/2017) * COMPREHENSIVE METABOLIC PANEL(Performed 02/21/2017) * PT-INR [facility](Performed 02/21/2017) * VITAMIN D 25-HYDROXY D2+D3(Performed 02/21/2017) * FOLATE RBC(Performed 02/21/2017) * VITAMIN B12(Performed 02/21/2017) * CBC W AUTO DIFFERENTIAL(Performed 02/21/2017) * IMIKZ-2-FZXZKHQEDQT BLOOD PHENOTYPING PANEL(Performed 03/14/2015) * MITOCHONDRIAL ANTIBODY SCREEN(Performed 03/14/2015) * RMESI-9-OVQCKBOVKNT BLOOD(Performed 03/14/2015) * CERULOPLASMIN(Performed 03/14/2015) * HEPATITIS C ANTIBODY(Performed 03/14/2015) * HEPATITIS B SURFACE ANTIGEN W RFLX CONFIRMATION(Performed 03/14/2015) * HEPATITIS B SURFACE ANTIBODY(Performed 03/14/2015) * HEPATITIS B CORE ANTIBODY TOTAL(Performed 03/14/2015) * HEPATITIS A ANTIBODY(Performed 03/14/2015) * FERRITIN(Performed 03/14/2015) * PLATELET ESTIMATION(Performed 03/14/2015) * CBC W AUTO DIFFERENTIAL(Performed 03/14/2015) * COMPREHENSIVE METABOLIC PANEL(Performed 03/14/2015) * PT-INR [facility](Performed 03/14/2015) * CBC W AUTO DIFFERENTIAL(Performed 02/17/2015) * COMPREHENSIVE METABOLIC PANEL(Performed 02/17/2015) * PT-INR [facility](Performed 02/17/2015) * PATHOLOGY TISSUE(Performed 01/25/2015) * CT ABDOMEN MULTI PHASE W CONT(Performed 01/24/2015) * CREATININE BLOOD - POCT (IP) [facility](Performed 01/24/2015) Results * XR Hand Left 3Vw or More (08/31/2024 2:25 PM HOSPITALIST PHYSICIAN) Only the most recent of2 resultswithin the time period is included. Anatomical Region Laterality Modality Wrist / Hand Digital Radiogra phy 09/01/2024 2:32 PM HOSPITALIST PHYSICIAN Impressions 09/01/2024 2:35 PM HOSPITALIST PHYSICIAN IMPRESSION: Satisfactory interval reduction of the dislocation at the level of the second PIP joint with the second proximal phalanx and middle phalanx appearing anatomically aligned on the present study. No obvious abnormal soft tissue gas seen on the present study. > Interpreting Provider: Bladimir Ozuna MD on 09/01/2024 2:35 PM Narrative 09/01/2024 2:35 PM HOSPITALIST PHYSICIAN PROCEDURE: XR HAND LEFT 3VW OR MORE [...] from a prior scaphoid repair. Procedure Note Bladimir Ozuna MD - 09/01/2024 PROCEDURE: XR HAND [...] on the present study. > Interpreting Provider: Bladimir Ozuna MD on 09/01/2024 2:35 PM Florian Barlow MD DIAGNOSTIC IMAGING O RDERABLES * (ABNORMAL) CBC W AUTO DIFFERENTIAL (08/19/2024 4:28 PM HOSPITALIST PHYSICIAN) Only the most recent of38 resultswithin the time period is included. WBC 3.2(L) 4.0 - 10.7 x10E9/L 08/19/2024 5:13 PM HOSPITALIST PHYSICIAN [facility] RBC Count 3.88(L) 4.30 - 5.80 x10E12/L 08/19/2024 5:13 PM HOSPITALIST PHYSICIAN [facility] Hemoglobin 11.5(L) 13.3 - 17.5 g/dL 08/19/2024 5:13 PM [facility] Hematocrit 35.6(L) 38.7 - 51.1 % 08/19/2024 5:13 PM [facility] MCV 91.8 80.0 - 98.0 fL 08/19/2024 5:13 PM [facility] MCH 29.6 26.7 - 33.6 pg 08/19/2024 5:13 PM [facility] MCHC 32.3 31.7 - 36.3 g/dL 08/19/2024 5:13 PM [facility] RDW-CV 16.6(H) 11.3 - 14.8 % 08/19/2024 5:13 PM [facility] Platelet Count 41(L) 150 - 420 x10E9/L 08/19/2024 5:13 PM [facility] MPV 12.2(H) 7.8 - 11.4 fL 08/19/2024 5:13 PM [facility] Neutrophil % 56.5 41.0 - 74.0 % 08/19/2024 5:13 PM [facility] Lymphocyte % 25.9 17.0 - 47.0 % 08/19/2024 5:13 PM [facility] Monocyte % 13.2(H) 3.0 - 11.0 % 08/19/2024 5:13 PM [facility] Eosinophil % 2.8 0.0 - 7.0 % 08/19/2024 5:13 PM [facility] Basophil % 1.3 0.0 - 1.6 % 08/19/2024 5:13 PM [facility] Immature Granulocytes % 0.3 0.0 - 1.0 % 08/19/2024 5:13 PM [facility] Neutrophil Absolute 1.79 1.60 - 7.50 x10E9/L 08/19/2024 5:13 PM [facility] Lymphocyte Absolute 0.82(L) 1.00 - 4.40 x10E9/L 08/19/2024 5:13 PM [facility] Monocyte Absolute 0.42 0.15 - 1.00 x10E9/L 08/19/2024 5:13 PM [facility] Eosinophil Absolute 0.09 0.00 - 0.60 x10E9/L 08/19/2024 5:13 PM [facility] Basophil Absolute 0.04 0.00 - 0.13 x10E9/L 08/19/2024 5:13 PM [facility] Blood BLOOD SPECIMEN / Unknown Venipuncture / Unknown 08/19/2024 4:28 PM HOSPITALIST PHYSICIAN 08/19/2024 4:38 PM HOSPITALIST PHYSICIAN Ashly Joy PA-C LAB - HEMATOL OGY ORDERABLES [facility] [address] [place] [address], [facility] [phone] * (ABNORMAL) PT-INR [facility] (06/08/2024 1:33 PM HOSPITALIST PHYSICIAN) Only the most recent of34 resultswithin the time period is included. PT 15.1(H) 12.1 - 14.8 Seconds 06/08/2024 2:22 PM [facility] INR 1.2 See Comment 06/08/2024 2:22 PM [facility] Comment:The suggested therap eutic range for standard coumadin (warfarin) therapy is an INR of 2.0-3.0. For high-risk patients (Mechanical Mitral Valve Prosthesis, etc.), the suggested prophylactic therapeutic range is an INR of 2.5-3.5. Blood BLOOD SPECIMEN / Unknown Lab Venipuncture / Unknown 06/08/2024 1:33 PM HOSPITALIST PHYSICIAN 06/08/2024 1:40 PM HOSPITALIST PHYSICIAN Deloris Ferris LEAD JAVA PROGRAMMER-CHIEF [employer]UVENILE PROBATION OFFICER LAB - COAGU LATION ORDERABLES [facility] [address] [place] [address], [place] [phone] * ALPHA FETOPROTEIN BLOOD TUMOR MARKER (06/08/2024 1:33 PM HOSPITALIST PHYSICIAN) Only the most recent of11 resultswithin the time period is included. Alpha-Fetoprote in Tumor Marker 3.7 <=8.3 ng/mL 06/08/2024 2:44 PM [facility] Comment: AFP values will vary depending on testing procedure used. Results are not comparable across different methods. AFP values obtained by [facility] using an Conner Alinity Immunoassay. Blood BLOOD SPECIMEN / Unknown Lab Venipuncture / Unknown 06/08/2024 1:33 PM HOSPITALIST PHYSICIAN 06/08/2024 1:49 PM HOSPITALIST PHYSICIAN Deloris Sofya Ferris LEAD JAVA PROGRAMMER-CHIEF [employer]UV[employer]ILE PROBATION OFFICER LAB - CHEMI STRY ORDERABLES [facility] [address] [place] [address], [facility] [phone] * (ABNORMAL) COMPREHENSIVE METABOLIC PANEL (06/08/2024 1:33 PM HOSPITALIST PHYSICIAN) Only the most recent of31 resultswithin the time period is included. BUN 23 7 - 26 mg/dL 06/08/2024 2:25 PM [facility] Creatinine 1.42(H) 0.71 - 1.16 mg/dL 06/08/2024 2:25 PM [facility] Sodium 138 136 - 145 mmol/L 06/08/2024 2:25 PM [facility] Potassium 4.3 3.5 - 4.5 mmol/L 06/08/2024 2:25 PM [facility] Chloride 106 98 - 107 mmol/L 06/08/2024 2:25 PM [facility] CO2 24 22 - 29 mmol/L 06/08/2024 2:25 PM [facility] Glucose 96 70 - 99 mg/dL 06/08/2024 2:25 PM [facility] Calcium 9.5 8.4 - 10.2 mg/dL 06/08/2024 2:25 PM [facility] Protein Total 7.6 6.0 - 8.3 g/dL 06/08/2024 2:25 PM [facility] Albumin 3.2(L) 3.4 - 5.0 g/dL 06/08/2024 2:25 PM [facility] Bilirubin Total 2.0(H) 0.2 - 1.2 mg/dL 06/08/2024 2:25 PM [facility] Alkaline Phosphatase 106 40 - 150 U/L 06/08/2024 2:25 PM [facility] ALT 25 5 - 55 U/L 06/08/2024 2:25 PM [facility] AST 42(H) 5 - 34 U/L 06/08/2024 2:25 PM [facility] Anion Gap 8 6 - 16 06/08/2024 2:25 PM [facility] BUN/Creatinine Ratio 16 7 - 23 06/08/2024 2:25 PM [facility] Osmolality Calculated 290 275 - 295 mOsm/kg 06/08/2024 2:25 PM [facility] Albumin/Globulin Ratio 0.7(L) 1.1 - 2.3 06/08/2024 2:25 PM [facility] eGFR by CKD-EPI 56(L) >=90 mL/min/1.7 3 m2 06/08/2024 2:25 PM [facility] Blood BLOOD SPECIMEN / Unknown Lab Venipuncture / Unknown 06/08/2024 1:33 PM HOSPITALIST PHYSICIAN 06/08/2024 1:49 PM HOSPITALIST PHYSICIAN Deloris Ferris LEAD JAVA PROGRAMMER-CHIEF JUVENILE PROBATION OFFICER LAB - CHEMI STRY ORDERABLES [facility] [address] [place] [address], [facility] [phone] * US ABDOMEN LIMITED (06/08/2024 12:22 PM HOSPITALIST PHYSICIAN) Only the most recent of11 resultswithin the time period is included. Anatomical Region Laterality Modality Abdomen Ultrasound 06/08/2024 2:24 PM HOSPITALIST PHYSICIAN Impressions 06/08/2024 5:06 PM HOSPITALIST PHYSICIAN IMPRESSION: Liver Visualization Score A: No or minimal limitations. US-1 Negative. Repeat surveillance US in 6 months. Patent hepatic vasculature. 1.Hepatic cirrhosis with sequela of portal hypertension including splenomegaly and ascites. No discrete hepatic lesion. 2.Cholelithiasis without evidence of acute cholecystitis. Report drafted by Shamika Dexter MD > Dictated by Shamika Dexter MD (Lacing Cutter) 06/08/2024 2:24 Freddy REYES MD have personally reviewed and interpreted this examination/study. > Interpreting Provider: Freddy Ramesh MD on 06/08/2024 5:06 PM Narrative 06/08/2024 5:06 PM HOSPITALIST PHYSICIAN PROCEDURE: US ABDOMEN LIMITED, DATE/TIME OF EXAM: 06/08/2024 12:31 PM, LOCATION [facility] INDICATION: K70.31: Alcoholic cirrhosis of liver with ascites (HCC) ADDITIONAL CLINICAL INFORMATION: Ordering Provider Reason For Exam: HCC screening Technologist Note: Additional: COMPARISON: Abdomen ultrasound from 09/12/2023 FINDINGS: Liver Visualization Score: No or minimal limitations in liver visualization Liver Morphology: The liver has a coarse echotexture and nodular surface. Liver Observations: None. Main Portal Vein: Color Doppler evaluation demonstrates patency of the main portal vein. Hepatic Veins: Color Doppler evaluation demonstrates patency of the hepatic veins. Bile Ducts: Common bile duct was not well-visualized. No intrahepatic biliary dilation. Gallbladder: A gallstone is seen within the gallbladder without pericholecystic fluid. Sonographic Hernandez's sign is negative. Ascites: Small volume ascites is present. Spleen: The spleen measures 17.2 cm in length. Pancreas: The pancreas is obscured by overlying bowel gas. Right Kidney: The right kidney measures 10.1 cm in length. Limited views of the right kidney reveal no evidence of nephrolithiasis or hydronephrosis. No discrete mass identified. Procedure Note Romelia Ramesh MD - 06/08/2024 PROCEDURE: US ABDOMEN LIMITED, DATE/TIME OF EXAM: 06/08/2024 12:31 PM, LOCATION [facility] INDICATION: K70.31: Alcoholic cirrhosis of liver with ascites (HCC) ADDITIONAL CLINICAL INFORMATION: Ordering Provider Reason For Exam: HCC screening Technologist Note: Additional: COMPARISON: Abdomen ultrasound from 09/12/2023 FINDINGS: Liver Visualization Score: No or minimal limitations in liver visualization Liver Morphology: The liver has a coarse echotexture and nodular surface. Liver Observations: None. Main Portal Vein: Color Doppler evaluation demonstrates patency of the main portal vein. Hepatic Veins: Color Doppler evaluation demonstrates patency of the hepatic veins. Bile Ducts: Common bile duct was not well-visualized. No intrahepatic biliarydilation. Gallbladder: A gallstone is seen within the gallbladder without pericholecysticfluid. Sonographic Hernandez's sign is negative. Ascites: Small volume ascites is present. Spleen: The spleen measures 17.2 cm in length. Pancreas: The pancreas is obscured by overlying bowel gas. Right Kidney: The right kidney measures 10.1 cm in length. Limited views of the right kidney reveal no evidence of nephrolithiasis or hydronephrosis. No discrete mass identified. IMPRESSION: Liver Visualization Score A: No or minimal limitations. US-1 Negative. Repeat surveillance US in 6 months. Patent hepatic vasculature. 1.Hepatic cirrhosis with sequela of portal hypertension including splenomegaly and ascites. No discrete hepatic lesion. 2.Cholelithiasis without evidence of acute cholecystitis. Report drafted by Shamika Dexter MD > Dictated by Shamika Dexter MD (Lacing Cutter) 06/08/2024 2:24 PM IFreddy MD have personally reviewed and interpreted this examination/study. > Interpreting Provider: Freddy Ramesh MD on 06/08/2024 5:06 PM Deloris Ferris LEAD JAVA PROGRAMMER-CHIEF JUVENILE [employer]OBATION OFFICER US ORDERABL ES * (ABNORMAL) HEMOGLOBIN A1C [IN-HOUSE TEST] (09/12/2023 2:34 PM HOSPITALIST PHYSICIAN) Only the most recent of2 resultswithin the time period is included. Hemoglobin A1c 6.0(H) <=5.6 % 09/12/2023 3:54 PM HOSPITALIST PHYSICIAN [facility] Estimated Average Glucose 126 mg/dL 09/12/2023 3:54 PM [facility] Comment: HbA1c Interpretation: Normal : < 5.7% Pre-diabetes: 5.7-6.4% Diabetes: Equal to or greater than 6.5% Test results diagnostic of diabetes should be repeated for confirmation. Treatment target values recommended by ADA and other clinical organizations should be used to evaluate metabolic control in patients. Reference: [place] [employer], Standards of Care in Diabetes -2020 In patients 70 years and older consider HbA1c target range of 7.0-7.5% (Reference: Jitendra Cash et al. JAMDA. 2012) The [place] assay for the measurement of HbA1c is a National Glycohemoglobin Standardization Program (NGSP) certified method. Blood BLOOD SPECIMEN WITH EDTA / Unknown Lab Venipuncture / Unknown 09/12/2023 2:34 PM HOSPITALIST PHYSICIAN 09/12/2023 2:50 PM HOSPITALIST PHYSICIAN Perfecto Contreras PA-C LAB - METERS SUPERINTENDENT RY ORDERABLES [address] [address], [place] [phone] * PROSTATE SPECIFIC ANTIGEN SCREEN (09/12/2023 2:34 PM HOSPITALIST PHYSICIAN) PSA Total 0.5 0.0 - 4.0 ng/mL 09/12/2023 3:37 PM HOSPITALIST PHYSICIAN [facility] Blood BLOOD SPECIMEN / Unknown Lab Venipuncture / Unknown 09/12/2023 2:34 PM HOSPITALIST PHYSICIAN 09/12/2023 2:50 PM HOSPITALIST PHYSICIAN Perfecto Contreras PA-C LAB - METERS SUPERINTENDENT RY ORDERABLES Performing Organization Address [facility] Co de Phone Number [address] [address], [place] [phone] * FOLATE (09/12/2023 2:34 PM HOSPITALIST PHYSICIAN) Only the most recent of2 resultswithin the time period is included. Folate 12.9 7.0 - 31.4 ng/mL 09/12/2023 3:51 PM HOSPITALIST PHYSICIAN [facility] Blood BLOOD SPECIMEN / Unknown Lab Venipuncture / Unknown 09/12/2023 2:34 PM HOSPITALIST PHYSICIAN 09/12/2023 2:50 PM HOSPITALIST PHYSICIAN Perfecto Contreras PA-C LAB - METERS SUPERINTENDENT RY ORDERABLES Performing Organization Address [facility]/ZIP Co de Phone Number [address] [address], [place] [phone] * VITAMIN B12 (09/12/2023 2:34 PM HOSPITALIST PHYSICIAN) Only the most recent of3 resultswithin the time period is included. Vitamin B12 [phone] - 816 pg/mL 09/12/2023 3:51 PM [facility] Blood BLOOD SPECIMEN / Unknown Lab Venipuncture / Unknown 09/12/2023 2:34 PM HOSPITALIST PHYSICIAN 09/12/2023 2:50 PM HOSPITALIST PHYSICIAN Perfecto Contreras PA-C LAB - METERS SUPERINTENDENT RY ORDERABLES [address] [address], [facility] [phone] * TSH (09/12/2023 2:34 PM HOSPITALIST PHYSICIAN) TSH 2.527 0.350 - 4.940 uIU/mL 09/12/2023 3:51 PM [facility] Blood BLOOD SPECIMEN / Unknown Lab Venipuncture / Unknown 09/12/2023 2:34 PM HOSPITALIST PHYSICIAN 09/12/2023 2:50 PM HOSPITALIST PHYSICIAN Perfecto Contreras PA-C LAB - METERS SUPERINTENDENT RY ORDERABLES Performing Organization Address City/[facility]/ZIP Co de Phone Number [address] [address], [place] [phone] * LIPID PROFILE (09/12/2023 2:34 PM HOSPITALIST PHYSICIAN) Only the most recent of4 resultswithin the time period is included. Cholesterol Total 160 <200 mg/dL 09/12/2023 3:19 PM [facility] HDL 59 >40 mg/dL 09/12/2023 3:19 PM [facility] Comment: ATP III Classification of HDL Cholesterol: <40 mg/dL: Considered a major risk factor. >60 mg/dL: Considered a negative risk factor. LDL Calculated 89 <100 mg/dL 09/12/2023 3:19 PM [facility] Comment: ATP III Classification of LDL Cholesterol: <100 mg/dL: Optimal 100 - 129 mg/dL: Near Optimal/Above Optimal 130 - 159 mg/dL: Borderline High 160 - 189 mg/dL: High >190 mg/dL: Very High Triglycerides 60 <150 mg/dL 09/12/2023 3:19 PM [facility] Comment: ATP III Classification of Triglycerides: <150 mg/dL: Normal 150 - 199 mg/dL: Borderline High 200 - 400 mg/dL: High >500 mg/dL: Very High Blood BLOOD SPECIMEN / Unknown Lab Venipuncture / Unknown 09/12/2023 2:34 PM HOSPITALIST PHYSICIAN 09/12/2023 2:50 PM HOSPITALIST PHYSICIAN Perfecto Contreras PA-C LAB - METERS SUPERINTENDENT RY ORDERABLES Performing Organization Address [facility]/ZIP Co de Phone Number [address] [address], [facility] [phone] * PTH INTACT W/O CALCIUM (01/31/2023 11:17 AM CDT) PTH Intact 30.8 8.0 - 77.0 pg/mL 01/31/2023 12:26 PM CDT [facility] Blood BLOOD SPECIMEN / Unknown Lab Venipuncture / Unknown 01/31/2023 11:17 AM CDT 01/31/2023 11:51 AM CDT Teofilo Weinstein MD LAB - CHEMISTRY CINDA RIED Performing Organization Address [facility] Co de Phone Number [address] [address], [facility] [phone] * (ABNORMAL) URINALYSIS REFLEX TO MICROSCOPIC NO CULTURE (01/31/2023 11:17 AM CDT) Only the most recent of3 resultswithin the time period is included. Color UA Colorless(A ) Straw, Yellow 01/31/2023 12:09 PM CDT [facility] Clarity UA Clear Clear 01/31/2023 12:09 PM CDT [facility] Specific [place] UA 1.005 1.005 - 1.030 01/31/2023 12:09 PM T [facility] pH UA 6.0 5.0 - 8.0 pH 01/31/2023 12:09 PM CDT [facility] Protein UA Negative Negative 01/31/2023 12:09 PM T [facility] Glucose UA Negative Negative 01/31/2023 12:09 PM T [facility] Ketone UA Negative Negative 01/31/2023 12:09 PM T [facility] Bilirubin UA Negative Negative 01/31/2023 12:09 PM T [facility] Blood UA Negative Negative 01/31/2023 12:09 PM [facility] Nitrite UA Negative Negative 01/31/2023 12:09 PM [facility] Leukocyte Esterase Negative Negative 01/31/2023 12:09 PM [facility] Urobilinogen UA Negative Negative mg/dL 01/31/2023 12:09 PM [facility] RBC UA 0-2 None Seen, 0-2, 3-5 /HPF 01/31/2023 12:09 PM [facility] WBC UA 0-5 None Seen, 0-5 /HPF 01/31/2023 12:09 PM [facility] Squamous Epithelial Cells UA None Seen None Seen, 0-2, 3-5 /HPF 01/31/2023 12:09 PM [facility] Urine URINE SPECIMEN OBTAINED BY CLEAN CATCH PROCEDURE / Unknown Collection / Unknown 01/31/2023 11:17 AM CDT 01/31/2023 11:51 AM CDT Narrative [facility] - 01/31/2023 12:09 PM CDT Teofilo Weinstein MD LAB - URINALYSIS ORD ERABLES [facility] [address] [place] [phone], [facility] [phone] * (ABNORMAL) VITAMIN D 25-HYDROXY (01/31/2023 11:17 AM CDT) Vitamin D, 25 Hydroxy 18.0(L) 30.0 - 80.0 ng/mL 01/31/2023 12:40 PM [facility] Comment: The recommendations for 25-Hydroxy Vitamin D clinical decision points are as follows: Deficient: <20.0 ng/mL Insufficient: 20.0 - 29.9 ng/mL Sufficient: 30.0 - 100.0 ng/mL Potential Toxicity: >100 ng/mL Reference: The Endocrine Society Clinical Practice Guidelines. 2011 If the 25-Hydroxy Vitamin D results are inconsitent with clinical evidence, it is recommended that follow-up testing using a method such as LC/MS/MS be performed to confirm the result. Blood BLOOD SPECIMEN / Unknown Lab Venipuncture / Unknown 01/31/2023 11:17 AM CDT 01/31/2023 11:51 AM CDT Teofilo Weinstein MD LAB - CHEMISTRY CINDA REID Performing Organization Address City/[facility]/ZIP Co de Phone Number [address] [address], [facility] [phone] * PHOSPHORUS BLOOD (01/31/2023 11:17 AM CDT) Only the most recent of8 resultswithin the time period is included. Phosphorus 3.0 2.8 - 5.1 mg/dL 01/31/2023 12:23 PM CDT [facility] Blood BLOOD SPECIMEN / Unknown Lab Venipuncture / Unknown 01/31/2023 11:17 AM CDT 01/31/2023 11:51 AM CDT Teofilo Weinstein MD LAB - CHEMISTRY CINDA REID Performing Organization Address City/[facility] Co de Phone Number [address] [address], [facility] [phone] * MRI ABDOMEN WWO CONTRAST (09/01/2022 9:50 AM HOSPITALIST PHYSICIAN) Only the most recent of2 resultswithin the time period is included. Anatomical Region Laterality Modality Abdomen Magnetic Resonan ce 09/03/2022 9:53 AM HOSPITALIST PHYSICIAN Impressions 09/03/2022 10:29 AM HOSPITALIST PHYSICIAN Impression: 1.Hepatic cirrhosis. 2.No arterially enhancing observations concerning for hepatocellular carcinoma. 3.Small volume ascites. 4.Normal gallbladder. Report dictated by Lesly Rees MD (vice president of communications). I, Darshan Gama MD have personally reviewed and interpreted this examination/study. > Interpreting Provider: Darshan Gama MD on 09/03/2022 10:29 AM Narrative 09/03/2022 10:29 AM HOSPITALIST PHYSICIAN PROCEDURE: MRI ABDOMEN WWO CONTRAST, DATE/TIME OF EXAM: 09/01/2022 9:51 AM, LOCATION [facility] INDICATION: K70.31: Alcoholic cirrhosis of liver with ascites (CMS/HCC) ADDITIONAL CLINICAL INFORMATION: Ordering Provider Reason For Exam: alcohol cirrhosis. ? PVT on US COMPARISON: MRI abdomen 09/22/2018. TECHNIQUE: MRI of the abdomen and pelvis was performed prior to and following the uneventful administration of 20 mL of Multihance intravenous gadolinium contrast according to standard protocol. Findings: Lower Chest: Mild subsegmental atelectasis in the right lower lobe. Hepatobiliary system Liver morphology: Surface nodularity of the liver is consistent with hepatic cirrhosis. Steatosis: None. Varices: Esophageal and perisplenic varices, varices in the gastrohepatic ligament, and small splenorenal shunt. Spleen: Enlarged measuring 16 cm. Ascites: Small ascites. Focal liver observations No arterially enhancing observations concerning for hepatocellular carcinoma. Hepatic vasculature Portal and hepatic veins: Patent. Arterial anatomy: Accessory left hepatic artery arising from the left gastric artery. Gallbladder and bile ducts Gallbladder: Normal. Bile ducts: Nondilated. Retroperitoneum Pancreas: Normal. Adrenals: Normal. Kidneys: Normal. Lymph nodes: No lymphadenopathy. Gastrointestinal: Imaged bowel and mesentery are normal. Other findings: Bilateral gynecomastia. Degenerative changes and levoscoliosis of the lumbar spine. Procedure Note Darshan Gama MD - 09/03/2022 PROCEDURE: MRI ABDOMEN WWO CONTRAST, DATE/TIME OF EXAM: 09/01/2022 9:51AM, LOCATION [facility] INDICATION: K70.31: Alcoholic cirrhosis of liver with ascites (CMS/HCC) ADDITIONAL CLINICAL INFORMATION: Ordering Provider Reason For Exam: alcohol cirrhosis. ? PVT on US COMPARISON: MRI abdomen 09/22/2018. TECHNIQUE: MRI of the abdomen and pelvis was performed prior to and following the uneventful administration of 20 mL of Multihanceintravenous gadolinium contrast according to standard protocol. Findings: Lower Chest: Mild subsegmental atelectasis in the right lower lobe. Hepatobiliary system Liver morphology: Surface nodularity of the liver is consistent with hepatic cirrhosis. Steatosis: None. Varices: Esophageal and perisplenic varices, varices in thegastrohepatic ligament, and small splenorenal shunt. Spleen: Enlarged measuring 16 cm. Ascites: Small ascites. Focal liver observations No arterially enhancing observations concerning for hepatocellular carcinoma. Hepatic vasculature Portal and hepatic veins: Patent. Arterial anatomy: Accessory left hepatic artery arising from the left gastric artery. Gallbladder and bile ducts Gallbladder: Normal. Bile ducts: Nondilated. Retroperitoneum Pancreas: Normal. Adrenals: Normal. Kidneys: Normal. Lymph nodes: No lymphadenopathy. Gastrointestinal: Imaged bowel and mesentery are normal. Other findings: Bilateral gynecomastia. Degenerative changes and levoscoliosis of the lumbar spine. Impression: 1.Hepatic cirrhosis. 2.No arterially enhancing observations concerning for hepatocellular carcinoma. 3.Small volume ascites. 4.Normal gallbladder. Report dictated by Lesly Rees MD (vice president of communications). I, Darshan Gama MD have personally reviewed and interpreted this examination/study. > Interpreting Provider: Darshan Gama MD on 09/03/2022 10:29 AM Deloris Cowart Ferris LEAD JAVA PROGRAMMER-CHIEF JUVENILE PROBATION OFFICER MR ORDERABL ES * (ABNORMAL) BASIC METABOLIC PANEL (CALCIUM TOTAL) (08/31/2022 11:13 AM HOSPITALIST PHYSICIAN) Only the most recent of20 resultswithin the time period is included. BUN 21 7 - 26 mg/dL 08/31/2022 12:12 PM [facility] Creatinine 1.79(H) 0.71 - 1.16 mg/dL 08/31/2022 12:12 PM [facility] Sodium 140 136 - 145 mmol/L 08/31/2022 12:12 PM [facility] Potassium 4.2 3.5 - 4.5 mmol/L 08/31/2022 12:12 PM [facility] Chloride 107 98 - 107 mmol/L 08/31/2022 12:12 PM [facility] CO2 25 22 - 29 mmol/L 08/31/2022 12:12 PM [facility] Glucose 118(H) 70 - 115 mg/dL 08/31/2022 12:12 PM [facility] Calcium 9.2 8.4 - 10.2 mg/dL 08/31/2022 12:12 PM [facility] Anion Gap 12 8 - 18 08/31/2022 12:12 PM [facility] BUN/Creatinine Ratio 12 7 - 23 08/31/2022 12:12 PM [facility] Osmolality Calculated 294 270 - 300 mOsm/kg 08/31/2022 12:12 PM [facility] eGFR by CKD-EPI 43(L) >=90 mL/min/1.7 3 m2 08/31/2022 12:12 PM [facility] Blood BLOOD SPECIMEN / Unknown Lab Venipuncture / Unknown 08/31/2022 11:13 AM HOSPITALIST PHYSICIAN 08/31/2022 11:35 AM HOSPITALIST PHYSICIAN Deloris Ferris APRNRAMIREZ LAB - CHEMI STRY ORDERABLES [address] [address], [facility] [phone] * TSH REFLEX FREE T4 (08/31/2022 11:02 AM HOSPITALIST PHYSICIAN) TSH 2.634 0.350 - 4.940 uIU/mL 08/31/2022 12:26 PM [facility] Blood BLOOD SPECIMEN / Unknown Lab Venipuncture / Unknown 08/31/2022 11:02 AM HOSPITALIST PHYSICIAN 08/31/2022 11:35 AM HOSPITALIST PHYSICIAN Perfecto Contreras PA-C LAB - METERS SUPERINTENDENT RY ORDERABLES Performing Organization Address City/[facility]/ZIP Co de Phone Number [address] [address], [place] [phone] * PHOSPHATIDYLETHANOL (PETH) (08/21/2022 10:37 AM HOSPITALIST PHYSICIAN) PEth 16:0/18.1 (POPEth) <10 ng/mL 08/23/2022 3:35 PM HOSPITALIST PHYSICIAN [facility] ([facility]) Comment: INTERPRETIVE INFORMATION:Phosphatidylethanol (PEth), Whole Blood Phosphatidylethanol (PEth) homologues Result Interpretation PEth 16:0/18:1 (POPEth) Less than 10 ng/mL............Not detected Less than 20 ng/mL............Abstinence or light alcohol consumption 20 - 200 ng/mL................Moderate alcohol consumption Greater than 200 ng/mL........Heavy alcohol consumption or chronic alcohol use PEth 16:0/18:2 (PLPEth).......Reference ranges are not well established. (Reference: Rahul Joiner and Kaity Jack 2018 J. Forensic Sci) Phosphatidylethanol (PEth) is a group of phospholipids formed in the presence of ethanol, phospholipase D and phosphatidylcholine. PEth is known to be a direct alcohol biomarker. The predominant PEth homologues are PEth 16:0/18:1 (POPEth) and PEth 16:0/18:2 (PLPEth), which account for 37-46% and 26-28% of the total PEth homologues, respectively. PEth is incorporated into the phospholipid membrane of red blood cells and has a general half-life of 4-10 days and a window of detection of 2-4 weeks. However, the window of detection is longer in individuals who chronically or excessively consume alcohol. The limit of quantification is 10 ng/mL. Serial monitoring of PEth may be helpful in monitoring alcohol abstinence over time. PEth results should be interpreted in the context of the patient's clinical and behavioral history. Patients with advanced liver disease may have falsely elevated PEth concentrations (Evelyne MAJANO et al 2018, Alcoholism Clinical & Experimental Research). Test developed and characteristics determined by [facility]. See Compliance Statement B: [employer] PEth 16:0/18.2 (PLPEth) <10 ng/mL 08/23/2022 3:35 PM HOSPITALIST PHYSICIAN [facility] ([facility]) Comment: Performed By: [facility] [address] [place] [id number] Promotion Specialist: Francisco De Los Santos MD, PhD Blood BLOOD SPECIMEN / Unknown Lab Venipuncture / Unknown 08/21/2022 10:37 AM HOSPITALIST PHYSICIAN 08/21/2022 10:53 AM HOSPITALIST PHYSICIAN Deloris Ferris LEAD JAVA PROGRAMMER-CHIEF JUVENILE PROBATION OFFICER LAB - CHEMI STRY ORDERABLES [facility] ([facility]) [address] [place] [address], [facility] * EGD (11/25/2020 11:18 AM CDT) Report Endoscopy POC Endoscopy Department Report __ _ Patient Name: Rhett Garner Procedure Date: 11/25/2020 11:18 AM Date of : 1960 Classification: Outpatient Gender: Male Ethnicity: Not or Race: White __ _ Providers: Jarvis Ernst (Fellow) Referring MD: Iam Sherman (Referring MD) Procedure: Upper GI endoscopy Indications: Follow-up of esophageal varices Medications: Monitored Anesthesia Care Description of Procedure: Pre-Anesthesia Assessment: - Prior to the procedure, a History and Physical was performed, and patient medications and allergies were reviewed. The patient's tolerance of previous anesthesia was also reviewed. The risks and benefits of the procedure and the sedation options and risks were discussed with the patient. All questions were answered, and informed consent was obtained. Prior Anticoagulants: The patient has taken no previous anticoagulant or antiplatelet agents. ASA Grade Assessment: III - A patient with severe systemic disease. After reviewing the risks and benefits, the patient was deemed in satisfactory condition to undergo the procedure. After obtaining informed consent, the endoscope was passed under direct vision. Throughout the procedure, the patient's blood pressure, pulse, and oxygen saturations were monitored continuously. The [id number] was introduced through the mouth, and advanced to the second part of duodenum. The upper GI endoscopy was accomplished without difficulty. The patient tolerated the procedure well. Findings: Esophagogastric landmarks were identified: the Z-line was found at 38 cm, the gastroesophageal junction was found at 38 cm and the site of hiatal narrowing was found at 39 cm from the incisors. Grade I varices were found in the lower third of the esophagus. LA Grade C (one or more mucosal breaks continuous between tops of 2 or more mucosal folds, less than 75% circumference) esophagitis with no bleeding was found. Mild portal hypertensive gastropathy was found in the entire examined stomach. The cardia and gastric fundus were normal on retroflexion. The examined duodenum was normal. Estimated Blood Loss: Estimated blood loss was minimal. Complications: No immediate complications. Estimated blood loss: Minimal. Impression: - Grade I esophageal varices. - LA Grade C esophagitis. - Mild portal hypertensive gastropathy. - Normal examined duodenum. - No specimens collected. Recommendation: - Patient has a contact number available for emergencies. The signs and symptoms of potential delayed complications were discussed with the patient. Return to normal activities tomorrow. Written discharge instructions were provided to the patient. - Resume previous diet. - Continue present medications. - Use Prilosec (omeprazole) 40 mg PO BID. - Repeat upper endoscopy in 1 year for surveillance. - Return to liver clinic as previously scheduled. Attending Participation: I was present and participated during the entire procedure, including non-monahan portions. Procedure Code(s): --- Professional --- 73593, Esophagogastroduode noscopy, flexible, transoral; diagnostic, including collection of specimen(s) by brushing or washing, when performed (separate procedure) Diagnosis Code(s): --- Professional --- I85.00, Esophageal varices without bleeding K20.9, Esophagitis, unspecified K76.6, Portal hypertension K31.89, Other diseases of stomach and duodenum CPT copyright 2019 [employer]. All rights reserved. The codes documented in this report are preliminary and upon icd 9 coder review may be revised to meet current compliance requirements. Julio Cesar Leonard, 11/25/2020 11:47:26 AM Note Initiated On: 11/25/2020 11:18 AM Number of Addenda: 0 [facility] [address] [place] [address] [facility] 11/25/2020 11:1 8 AM CDT Julio Cesar Leonard MD GI PROCEDURE O RDERABLES [facility] * PATHOLOGY TISSUE (10/07/2020 10:27 AM HOSPITALIST PHYSICIAN) Only the most recent of3 resultswithin the time period is included. Case Report Surgical Pathology Report Case: [id number] Authorizing Provider: Julio Cesar Leonard, Collected: 10/07/2020 10:27 AM Ordering Location: [facility] Received: 10/07/2020 11:24 AM Pathologist: Dalia Morales MD Specimen: Duodenum, duodenal nodule bx 10/10/2020 2:18 PM CDT [facility] Final Diagnosis Small intestine, duodenum, biopsy: - Nodular small intestine mucosa with mild reactive changes - No increase in intraepithelial lymphocytes 10/10/2020 2:18 PM CDT [facility] Microscopic Description and Comment Microscopic examination substantiates the final diagnosis. 10/10/2020 2:18 PM CDT [facility] Clinical History The patient is a 60-year-old male with history of esophageal varices, presents for surveillance. Procedure / operative findings: upper GI endoscopy - mucosal changes suspicious for Rai's esophagus, large esophageal varices (banded), few gastric polyps and mucosal nodule in duodenum (biopsied). 10/10/2020 2:18 PM CDT [facility] Gross Description The requisition and specimen(s) are labeled with the patient's name, Rhett Garner. Received in formalin, specimen A , are 3 pink-keller tissue fragments measuring 0.1-0.3 cm in greatest dimension and 0.4 x 0.2 x 0.1 cm in aggregate. The specimen is submitted in toto in cassette A1. OW 10/10/2020 2:18 PM CDT [facility] Disclaimer The performance characteristics of all immunohistochemical and indirect immunofluorescence stains (if any) cited in this report were determined by the Histopathology Laboratory of [facility]. Some of these tests were developed by our own laboratory and have not been cleared or approved by the US Food and Drug Administration. The FDA does not require this test to go through premarket FDA review. These tests are used for clinical purposes. They should not be regarded as investigational or for research. This laboratory is certified under the Clinical Laboratory Improvement Amendments (CLIA) as qualified to perform high complexity clinical laboratory testing. This case has been personally reviewed and interpreted by the attending (teaching) pathologist. 10/10/2020 2:18 PM [facility] Embedded Images 10/10/2020 2:18 PM [facility] Biopsy, NOS PART OF DUODENUM / Unknown 10/07/2020 10:27 AM HOSPITALIST PHYSICIAN 10/07/2020 11:24 AM HOSPITALIST PHYSICIAN Comment:Pre-op diagnosis: K70.31 Alcoholic cirrhosis of liver with ascites I85.10 Secondary esophageal varices without bleeding Julio Cesar Leonard MD LAB - PATHOLOG Y/CYTOLOGY ORDERABLES [facility] [address] [phone] * EGD (10/07/2020 10:06 AM HOSPITALIST PHYSICIAN) Report Endoscopy POC Endoscopy Department Report __ _ Patient Name: Rhett Garner Procedure Date: 10/07/2020 10:06 AM Date of : 1960 Classification: Outpatient Gender: Male Ethnicity: Not or Race: White __ _ Providers: Brenda Ernst (Fellow) Referring MD: Iam Sherman (Referring MD) Procedure: Upper GI endoscopy Indications: Follow-up of esophageal varices Medications: Monitored Anesthesia Care Description of Procedure: Pre-Anesthesia Assessment: - Prior to the procedure, a History and Physical was performed, and patient medications and allergies were reviewed. The patient's tolerance of previous anesthesia was also reviewed. The risks and benefits of the procedure and the sedation options and risks were discussed with the patient. All questions were answered, and informed consent was obtained. Prior Anticoagulants: The patient has taken no previous anticoagulant or antiplatelet agents. ASA Grade Assessment: IV - A patient with severe systemic disease that is a constant threat to life. After reviewing the risks and benefits, the patient was deemed in satisfactory condition to undergo the procedure. After obtaining informed consent, the endoscope was passed under direct vision. Throughout the procedure, the patient's blood pressure, pulse, and oxygen saturations were monitored continuously. The [id number] was introduced through the mouth, and advanced to the second part of duodenum. The upper GI endoscopy was accomplished without difficulty. The patient tolerated the procedure well. Findings: Esophagogastric landmarks were identified: the Z-line was found at 37 cm, the gastroesophageal junction was found at 39 cm and the site of hiatal narrowing was found at 40 cm from the incisors. There were esophageal mucosal changes suspicious for short-segment Rai's esophagus present in the lower third of the esophagus. The maximum longitudinal extent of these mucosal changes was 2 cm in length. Could not biopsy due to concerns for underlying esophageal varices. Large (> 5 mm) varices were found in the lower third of the esophagus. Three bands were successfully placed with incomplete eradication of varices. There was no bleeding during the procedure. A few sessile polyps with no bleeding and no stigmata of recent bleeding were found in the gastric fundus. Appears to be fundic gland polyps. The cardia and gastric fundus were normal on retroflexion. No gastric varices. A single 8 mm mucosal nodule with a localized distribution was found in the duodenal bulb. Biopsies were taken with a cold forceps for histology. The examined duodenum was normal. Estimated Blood Loss: Estimated blood loss: none. Complications: No immediate complications. Impression: - Esophagogastric landmarks identified. - Esophageal mucosal changes suspicious for short-segment Rai's esophagus. - Large (> 5 mm) esophageal varices. Incompletely eradicated. Banded. - A few gastric polyps. - Mucosal nodule found in the duodenum. Biopsied. - Normal examined duodenum. Recommendation: - Discharge patient to home (ambulatory). - Clear liquid diet today. Full liquid diet tomorrow. Mechanical soft diet for 5 days. - Continue present medications. - Repeat upper endoscopy in 4-8 weeks for surveillance. - Discontinue Netoprolol, start Nadolol 40 mg daily. Attending Participation: I was present and participated during the entire procedure from insertion to removal of the endoscope. Procedure Code(s): --- Professional --- 47841, Esophagogastroduode noscopy, flexible, transoral; with band ligation of esophageal/gastric varices 44948, Esophagogastroduode noscopy, flexible, transoral; with biopsy, single or multiple Diagnosis Code(s): --- Professional --- K22.8, Other specified diseases of esophagus I85.00, Esophageal varices without bleeding K31.7, Polyp of stomach and duodenum K31.89, Other diseases of stomach and duodenum CPT copyright 2019 [employer]. All rights reserved. The codes documented in this report are preliminary and upon icd 9 coder review may be revised to meet current compliance requirements. Julio Cesar Leonard, 10/07/2020 10:56:08 AM Note Initiated On: 10/07/2020 10:06 AM Number of Addenda: [id number] [place] [address] PROVATION 10/07/2020 10:0 6 AM HOSPITALIST PHYSICIAN Julio Cesar Leonard MD GI PROCEDURE O RDERABLES [facility] [employer]ATION * CARDIAC EKG ORDER (03/18/2020 5:46 AM CDT) Only the most recent of4 resultswithin the time period is included. Narrative 03/18/2020 5:46 AM CDT Ordered by an unspecified provider. Scanned Document CARDIAC SERVICES ORD ERABLES * LAB MISC TEST (12/01/2018 3:23 PM CDT) Blood BLOOD SPECIMEN / Unknown Lab Venipuncture / Unknown 12/01/2018 3:23 PM CDT 12/01/2018 3:27 PM CDT Julio Cesar Leonard MD LAB SEND OUT [facility] REF LAB NON INTERF [address] * DRUG SCREEN TOX URINE PANEL (12/01/2018 3:23 PM CDT) Only the most recent of2 resultswithin the time period is included. [facility] Amphetamines Screen Urine Negative Negative: < 1000 ng/mL 12/01/2018 4:05 PM [facility] Barbiturates Screen Urine Negative Negative: < 200 ng/mL 12/01/2018 4:05 PM [facility] Benzodiazepine Screen Urine Negative Negative: < 200 ng/mL 12/01/2018 4:05 PM [facility] Opiates Urine Negative Negative: < 300 ng/mL 12/01/2018 4:05 PM [facility] Cocaine Metabolites Urine Negative Negative: < 300 ng/mL 12/01/2018 4:05 PM [facility] Phencyclidine Screen Urine Negative Negative: < 25 ng/ml 12/01/2018 4:05 PM [facility] Cannabinoids Screen Urine Negative Negative: <50 ng/mL 12/01/2018 4:05 PM [facility] Methadone Screen Urine Negative Negative: < 300 ng/mL 12/01/2018 4:05 PM [facility] Urine URINE / Unknown Collection / Unknown 12/01/2018 3:23 PM CDT 12/01/2018 3:27 PM CDT Narrative [facility] - 12/01/2018 4:05 PM CDT The Urine Toxicology Screening Panel does not screen for Propoxyphene, Meprobamate, Carisoprodol, Trazodone, xdpj-ozl-fgwiqev medications and/or volatiles (Acetone, Isopropanol, Methanol or Ethylene Glycol). Ethanol, Salicylate, Acetaminophen, Tricyclic Antidepressants and several therapeutic drugs may be individually assayed in serum or plasma specimen. Toxicology testing by the [facility] is an aid to medical diagnosis and treatment of patients. No documented chain of custody was maintained. Results are intended to be used for clinical purposes only. Julio Cesar Leonard MD LAB - URINE CH EMISTRY ORDERABLES Performing Organization Address City/[facility]/ZIP Co de Phone Number [address] [phone] * [id number] BLOOD (12/01/2018 12:56 PM CDT) Only the most recent of2 resultswithin the time period is included. Lwjxb-[id number] ypsin 161 90 - 200 mg/dL 12/01/2018 2:34 PM CDT [facility] Blood BLOOD SPECIMEN / Unknown Lab Venipuncture / Unknown 12/01/2018 12:56 PM CDT 12/01/2018 1:15 PM CDT Julio Cesar Leonard MD LAB - CHEMISTR Y ORDERABLES Performing Organization Address City/[facility]/ZIP Co de Phone Number [address] [phone] * NICOTINE + METABOLITES BLOOD (12/01/2018 12:56 PM CDT) Only the most recent of3 resultswithin the time period is included. Nicotine None Detected ng/mL 12/03/2018 2:11 PM CDT [facility] ([facility]) Comment: This test was developed and its performance characteristics determined by [facility]. It has not been cleared or approved by the Food and Drug Administration. Nicotine levels greater than 2.0 are consistent with the use of tobacco or tobacco cessation products. Cotinine None Detected ng/mL 12/03/2018 2:11 PM CDT [facility] Comment: This test was developed and its performance characteristics determined [facility]. It has not been cleared or approved by the Food and Drug Administration. Cotinine levels greater than 20.0 are consistent with the use of tobacco or tobacco cessation products. Blood BLOOD SPECIMEN / Unknown Lab Venipuncture / Unknown 12/01/2018 12:56 PM CDT 12/01/2018 1:15 PM CDT Narrative [facility] ([facility]) - 12/03/2018 2:11 PM CDT Performed at: - [address] [id number] Warehouse Operations Manager: Felix Alvarez MD, Phone: [phone] Julio Cesar Leonard MD LAB - CHEMISTR Y ORDERABLES [facility]) [address] [place] [address] * ALCOHOL ETHYL BLOOD (12/01/2018 12:56 PM CDT) Only the most recent of4 resultswithin the time period is included. Interpretation Ethanol None Detected None Detected mg/dL 12/01/2018 2:32 PM CDT [facility] Comment: Ethanol levels less than 10 mg/dL are resulted as None detected . Blood BLOOD SPECIMEN / Unknown Lab Venipuncture / Unknown 12/01/2018 12:56 PM CDT 12/01/2018 1:15 PM CDT Julio Cesar Leonard MD LAB - CHEMISTR Y ORDERABLES [address] [phone] * ENDOSCOPY, COLON, DIAGNOSTIC (11/28/2018 1:53 PM [...] and oxygen saturations were monitored continuously. The [id number] was introduced through the anus and advanced [...] malignant neoplasm of colon CPT copyright 2016 [employer]. All rights reserved. The codes documented in this report are preliminary and upon icd 9 coder review may be revised to meet current compliance requirements. Julio Cesar Leonard, 11/28/2018 2:31:42 PM Note Initiated On: 11/28/2018 1:53 PM Number of Addenda: 0 [facility] [address] [place] [address] [facility] [employer] 11/28/2018 1:53 PM CDT Julio Cesar Leonard MD GI PROCEDURE O RDERABLES [facility] [employer] * EGD (11/28/2018 1:44 PM CDT) Report Endoscopy POC Endoscopy Department Report _ Patient Name: Rhett Garner Procedure Date: 11/28/2018 1:44 PM Date of : 1960 Classification: Outpatient Gender: Male Ethnicity: Not or Race: White _ Providers: Julio Cesar Leonard Referring MD: Procedure: Upper GI endoscopy Indications: Follow-up of esophageal varices Medications: Monitored Anesthesia Care Description of Procedure: After obtaining informed consent, the endoscope was passed under direct vision. Throughout the procedure, the patient's blood pressure, pulse, and oxygen saturations were monitored continuously. The GIF-[id number] was introduced through the mouth, and advanced to the third part of duodenum. The upper GI endoscopy was accomplished without difficulty. The patient tolerated the procedure well. Findings: Portal hypertensive gastropathy was found in the stomach. The examined duodenum was normal. Estimated blood loss: none. Estimated Blood Loss: Estimated blood loss: none. Complications: No immediate complications. Impression: - Portal hypertensive gastropathy. - Normal examined duodenum. - No specimens collected. Recommendation: - Discharge patient to home (with escort). Attending Participation: I personally performed the entire procedure. Procedure Code(s): --- Professional --- 55946, Esophagogastrodu odenoscopy, flexible, transoral; diagnostic, including collection of specimen(s) by brushing or washing, when performed (separate procedure) Diagnosis Code(s): --- Professional --- K76.6, Portal hypertension K31.89, Other diseases of stomach and duodenum I85.00, Esophageal varices without bleeding CPT copyright 2016 [employer]. All rights reserved. The codes documented in this report are preliminary and upon icd 9 coder review may be revised to meet current compliance requirements. Julio Cesar Leonard, 11/28/2018 2:28:16 PM Note Initiated On: 11/28/2018 1:44 PM Number of Addenda: 0 [facility] [address] [place] [address] [facility] [employer] 11/28/2018 1:44 PM CDT Benja Sauceda MD GI PROCEDURE JAELYNA DIANELYS [facility] [employer] * BONE DENSITY AXIAL SKELETON(1OR MORE SITES)[id number] (11/10/2018 9:45 AM CDT) Anatomical Region Laterality Modality Mammography 11/10/2018 1:41 PM CDT Narrative 11/10/2018 1:56 PM CDT Examination: Dual energy x-ray absorptiometry of the lumbar spine and hip. Clinical Indication: 58-year-old gentleman with end-stage liver disease presented today for evaluation before transplantation. Findings: Detailed data from the exam is sent separately to the ordering physician and is also available on [employer], the Radiology Department's computerized picture archive system SUMMARY: No prior study available for comparison. BONE MINERAL DENSITY (BMD) lumbar spine (L1-4): Normal; T-score 3.0. BONE MINERAL DENSITY (BMD) left hip: Normal; T-score -0.5. FRAX 10 year fracture risk Was not calculated because all T score values for spine/hip/femoral neck at or above -1.0. Definitions: T-score = Standard Deviation Normal: A value for bone mineral density(BMD) within 1 standard deviation of the young adult reference mean. (T-score at or above -1) Low bone mass(osteopenia): A value for bone mineral density(BMD) more than 1 standard deviation below the young adult mean, but less than 2.5 standard deviations below the young adult mean. ( T-score between -1.1 and -2.4) Osteoporosis: A value for bone mineral density 2.5 standard deviations or more below the young adult mean. ( T-score at or below -2.5) Severe osteoporosis: Osteoporosis + the presence of one or more fragility fractures. Please note that T-score values are important in determining increased risk for fractures. The T-score represents the standard deviation above or below the mean bone mineral density for young adults. With each -1 standard deviation decrease in bone mineral density, the risk for fracture doubles exponentially. A T-score of -1 will double the risk , and -2 will be 4 times the risk. As a rule of thumb, a T-score of -1 to -2.5 indicates increasing degrees of osteopenia. This report was approved by Carlos Marcano on 11/10/2018 1:42 PM . I, Dr. HONG ENG D.O. have personally reviewed and interpreted this examination/study. This report was electronically signed by HONG ENG D.O. on 11/10/2018 1:56 PM . Procedure Note Hong Eng, DO - 11/10/2018 Examination: Dual energy x-ray absorptiometry of the lumbar spine andhip. Clinical Indication: 58-year-old gentleman with end-stage liver disease presented today for evaluation before transplantation. Findings: Detailed data from the exam is sent separately to the ordering physician and is also available on [employer], the Radiology Department's computerized picture archive system SUMMARY: No prior study available for comparison. BONE MINERAL DENSITY (BMD) lumbar spine (L1-4): Normal; T-score 3.0. BONE MINERAL DENSITY (BMD) left hip: Normal; T-score -0.5. FRAX 10 year fracture risk Was not calculated because all T score values for spine/hip/femoral neck at or above -1.0. Definitions: T-score = Standard Deviation Normal: A value for bone mineral density(BMD) within 1 standarddeviation of the young adult reference mean. (T-score at or above -1) Low bone mass(osteopenia): A value for bone mineral density(BMD) morethan 1 standard deviation below the young adult mean, but less than 2.5 standard deviations below the young adult mean. ( T-score between -1.1and -2.4) Osteoporosis: A value for bone mineral density 2.5 standard deviationsor more below the young adult mean. ( T-score at or below -2.5) Severe osteoporosis: Osteoporosis + the presence of one or morefragility fractures. Please note that T-score values are important in determining increased risk for fractures. The T-score represents the standard deviation aboveor below the mean bone mineral density for young adults. With each -1 standard deviation decrease in bone mineral density, the risk forfracture doubles exponentially. A T-score of -1 will double the risk , and -2will be 4 times the risk. As a rule of thumb, a T-score of -1 to -2.5indicates increasing degrees of osteopenia. This report was approved by Carlos Marcano on 11/10/2018 1:42 PM . IDr. HONG D.O. have personally reviewed and interpreted this examination/study. This report was electronically signed by HONG ENG D.O. on11/10/2018 1:56 PM . Julio Cesar Leonard MD DEXA ORDERABLE S * ECHO STRESS COLOR FLOW AND DOPPLER (11/04/2018 8:14 AM CDT) Anatomical Region Laterality Modality Ultrasound 11/04/2018 8:14 AM CDT Narrative Procedure Note Jesus Man MD - 11/05/2018 Julio Cesar Leonard MD ECHOCARDIOGRAP HY RADIANT * QUANTIFERON-TB GOLD PLUS 4-TUBE (11/04/2018 7:33 AM CDT) [facility] QuantiFERON Criteria Comment 11/07/2018 5:09 PM CDT [facility] ([facility]) Comment: The QuantiFERON-TB Gold Plus result is determined by subtracting the Nil value from either TB antigen (Ag) tube. The mitogen tube serves as a control for the test. QuantiFERON TB1 Ag Value 0.02 IU/mL 11/07/2018 5:09 PM CDT [facility] ([facility]) QuantiFERON TB2 Ag Value 0.02 IU/mL 11/07/2018 5:09 PM CDT [facility] ([facility]) QuantiFERON Nil Value 0.03 IU/mL 11/07/2018 5:09 PM CDT [facility] ([facility]) QuantiFERON Mitogen Value >10.00 IU/mL 11/07/2018 5:09 PM CDT [facility] ([facility]) QuantiFERON-TB Gold Plus Negative Negative 11/07/2018 5:09 PM CDT [facility] ([facility]) Comment: The specimen received for QuantiFERON testing was incubated by the ordering institution. Specific procedures outlined in our Directory of Services and in the package insert for the QuantiFERON Gold (In Tube) test must be followed to enable for proper stimulation of cells for the production of interferon gamma. Blood BLOOD SPECIMEN / Unknown Lab Venipuncture / Unknown 11/04/2018 7:33 AM CDT 11/04/2018 7:59 AM CDT Narrative [facility] ([facility]) - 11/07/2018 5:09 PM CDT Performed at: [address] [place] [id number] Warehouse Operations Manager: Wilder Jean PhD, Phone: [phone] Julio Cesar Leonard MD LAB - CHEMISTR Y ORDERABLES [facility] ([facility]) [address] [place] [address] * MITOCHONDRIAL ANTIBODY SCREEN (11/04/2018 7:33 AM CDT) Only the most recent of2 resultswithin the time period is included. Mitochondrial M2 Antibody 5.4 0.0 - 20.0 Units 11/05/2018 12:03 PM CDT [facility] Comment: Mitochondrial M2 Antibody Numeric Result Interpretation: <20.1 Units: Negative 20.1 - 24.9 Units: Equivocal >24.9 Units: Positive Blood BLOOD SPECIMEN / Unknown Lab Venipuncture / Unknown 11/04/2018 7:33 AM CDT 11/04/2018 7:58 AM CDT Julio Cesar Leonard MD LAB - CHEMISTR Y ORDERABLES Performing Organization Address [facility] Co de Phone Number [address] [phone] * SMOOTH MUSCLE ANTIBODY (11/04/2018 7:33 AM CDT) Only the most recent of2 resultswithin the time period is included. F-Actin Antibody IgG 14.4 0.0 - 19.9 Units 11/05/2018 12:03 PM CDT [facility] Comment: F-Actin Antibody Numeric Result Interpretation: <20.0 Units: Negative 20.0 - 30.0 Units: Weak Positive >30.0 Units: Moderate to Strong Positive Blood BLOOD SPECIMEN / Unknown Lab Venipuncture / Unknown 11/04/2018 7:33 AM CDT 11/04/2018 7:58 AM CDT Julio Cesar Leonard MD LAB - SEROLOGY ORDERABLES Performing Organization Address City/[facility]/ZIP Co de Phone Number [address] [phone] * HEPATITIS B SURFACE ANTIBODY (11/04/2018 7:33 AM CDT) Only the most recent of2 resultswithin the time period is included. Hepatitis B Virus Surface Antibody Non-react tyson Non-react tyson 11/04/2018 9:12 AM CDT [facility] Comment: < 8 mIU/mL Hepatitis B surface Antibody (HBsAb). Nonreactive for HBsAb - individual is considered not immune to Hepatitis B Virus infection. Hepatitis B Surface Antibody Quantitative 0.0 <8.0 mIU/mL 11/04/2018 9:12 AM CDT [facility] Comment: Hepatitis B Surface Antibody Numeric Result Interpretation: Nonreactive: <8.0 mIU/mL Indeterminate: 8.0 - 12.0 mIU/mL Reactive: >12.0 mIU/mL Blood BLOOD SPECIMEN / Unknown Lab Venipuncture / Unknown 11/04/2018 7:33 AM CDT 11/04/2018 7:58 AM CDT Julio Cesar Leonard MD LAB - CHEMISTR Y ORDERABLES Performing Organization Address [facility] Co de Phone Number [address] [phone] * HEPATITIS B CORE ANTIBODY (11/04/2018 7:33 AM CDT) Only the most recent of2 resultswithin the time period is included. Pathologist [facility] HBc Antibody Total Non-reacti ve Non-reacti ve 11/04/2018 9:18 AM CDT [facility] Blood BLOOD SPECIMEN / Unknown Lab Venipuncture / Unknown 11/04/2018 7:33 AM CDT 11/04/2018 7:58 AM CDT Julio Cesar Leonard MD LAB - CHEMISTR Y ORDERABLES Performing Organization Address [facility] Co de Phone Number [address] [phone] * HEPATITIS B SURFACE ANTIGEN W RFLX CONFIRMATION (11/04/2018 7:33 AM CDT) Only the most recent of2 resultswithin the time period is included. Hepatitis B Virus Surface Antigen Non-reacti ve Non-reacti ve 11/04/2018 12:54 PM CDT [facility] Blood BLOOD SPECIMEN / Unknown Lab Venipuncture / Unknown 11/04/2018 7:33 AM CDT 11/04/2018 7:58 AM CDT Julio Cesar Leonard MD LAB - CHEMISTR Y ORDERABLES Performing Organization Address City/[facility] Co de Phone Number [address] [phone] * (ABNORMAL) HEPATITIS A ANTIBODY (11/04/2018 7:33 AM CDT) Only the most recent of2 resultswithin the time period is included. [facility] Hepatitis A Virus Antibody Total Positive(A ) Negative 11/05/2018 6:21 AM CDT [facility] ([facility]) Blood BLOOD SPECIMEN / Unknown Lab Venipuncture / Unknown 11/04/2018 7:33 AM CDT 11/04/2018 8:01 AM CDT Narrative [facility] ([facility]) - 11/05/2018 6:21 AM CDT Performed at: 01 - [facility] [address] [place], [place] [id number] Warehouse Operations Manager: Wilder Jean PhD, Phone: [phone] Julio Cesar Leonard MD LAB - CHEMISTR Y ORDERABLES Performing Organization Address City/[facility] Co de Phone Number [facility] ([facility]) [address] [id number] * ENDOTRACHEAL TUBE NOTE (10/29/2018 11:02 AM CDT) Narrative Sahil Medeiros MD - 10/29/2018 11:02 AM CDT Prabhakar Parsons DO 10/15/2018 9:46 AM Endotracheal Tube Placement: Patient Location: OR. Intubation Event Date/Time: 10/15/2018 9:21 AM Procedure: intubation (53906). Procedure Section: Sedation: under general anesthesia. Indications for Airway Management: anesthesia Pretreatment: 100% O2. Induction: standard IV Patient Position: sniffing and supine Mask Ventilation: easy. Blade Type: Wilber Blade Size: 4 Laryngoscopy View: grade 1 (full cords) Intubation Adjuncts: stylet Device: endotracheal tube Placement: oral Tube type: cuff - inflated Tube Size (MM): 8 Depth of Insertion (CM): 22 Measured From: lips Cuff Inflated With: air Number of Attempts: 1. Placement Verified By: direct visualization, bilateral breath sounds, chest auscultation and CO2 monitor Tube secured with: adhesive tape. Difficult Airway? No. Procedure Start Time: 10/15/2018 9:21 AM. Staff Section Anesthesia Provider: PRABHAKAR PARSONS, Performed the procedure Provider #1: SAHIL MEDEIROS. Sahil Medeiros MD GENERAL ANESTHESI A ORDERABLES * LAB RESULTS ORDER (10/27/2018 2:53 PM CDT) Narrative 10/27/2018 2:53 PM CDT Ordered by an unspecified provider. Scanned Document LAB - THERAPEUTIC DR UG MONITORING ORDERABLES * APHERESIS/TRANSFUSION ORDER (10/27/2018 2:53 PM CDT) Narrative 10/27/2018 2:53 PM CDT Ordered by an unspecified provider. Scanned Document NURSING - VITAL SIGN S AND ASSESSMENT * ECHO COMPLETE W BUBBLE STUDY (10/24/2018 11:09 AM CDT) Anatomical Region Laterality Modality Color Flow Doppl er 10/24/2018 11:0 9 AM CDT Narrative Procedure Note Robyn Crowell MD - 10/24/2018 Brittany Stubbs MD ECHOCARDIOGRAPHY RAD IANT * (ABNORMAL) DIFFERENTIAL MANUAL (10/24/2018 5:31 AM CDT) Only the most recent of3 resultswithin the time period is included. WBC (corrected for NRBC) 2.3 10 3/uL 10/24/2018 7:31 AM CDT [facility] Total Cell Count 100 10/25/19 19 7:31 AM [facility] Neutrophils Absolute Manual 1.36(L) 1.60 - 7.00 10 3/uL 10/24/2018 7:31 AM [facility] Comment:(BANDS+SEGS) x WBC = NEUT # (ANC) Lymphocyte Absolute Manual 0.51(L) 0.80 - 2.90 10 3/uL 10/24/2018 7:31 AM [facility] Monocytes Absolute Manual 0.41 0.14 - 0.66 10 3/uL 10/24/2018 7:31 AM [facility] Eosinophils Absolute Manual 0.02 0.00 - 0.22 10 3/uL 10/24/2018 7:31 AM [facility] Neutrophil % Manual 59 30 - 60 % 10/24/2018 7:31 AM [facility] Lymphocyte % Manual 22 20 - 45 % 10/24/2018 7:31 AM [facility] Monocytes % Manual 18(H) 2 - 10 % 10/24/2018 7:31 AM [facility] Eosinophils % Manual 1 1 - 6 % 10/24/2018 7:31 AM [facility] Platelet Estimate Decreased (A) Adequate 10/24/2018 7:31 AM [facility] Anisocytosis 1+(A) None 10/24/2018 7:31 AM [facility] Blood BLOOD SPECIMEN / Unknown Lab Venipuncture / Unknown 10/24/2018 5:31 AM CDT 10/24/2018 6:01 AM CDT Hilary Vanegas MD LAB - HEMATOLOGY ORD ERABLES [address] [phone] * (ABNORMAL) HEPATIC FUNCTION PANEL (10/24/2018 5:31 AM CDT) Only the most recent of9 resultswithin the time period is included. Protein Total 5.3(L) 6.0 - 8.3 g/dL 019 6:31 AM [facility] Albumin 2.8(L) 3.4 - 5.0 g/dL 10/24/2018 6:31 AM [facility] Bilirubin Total 3.6(H) 0.2 - 1.2 mg/dL 09/27 6:31 AM [facility] Bilirubin Conjugated 1.1(H) 0.0 - 0.5 mg/dL 10/24/2018 6:31 AM [facility] Bilirubin Unconjugated 2.5 Unconjugated Bilirubin is a calculated value: Reference ranges have not been established. mg/dL 10/24/2018 6:31 AM [facility] Alkaline Phosphatase 50 40 - 150 Units/L 10/24/2018 6:31 AM [facility] ALT 10 0 - 55 Units/L 10/24/2018 6:31 AM [facility] AST 25 5 - 34 Units/L 10/24/2018 6:31 AM [facility] Albumin/Globulin Ratio 1.1 1.1 - 2.3 10/24/2018 6:31 AM [facility] Blood BLOOD SPECIMEN / Unknown Lab Venipuncture / Unknown 10/24/2018 5:31 AM CDT 10/24/2018 6:01 AM CDT Hilary Vanegas MD LAB - CHEMISTRY [facility] [address] [phone] * MAGNESIUM BLOOD (10/24/2018 5:31 AM CDT) Only the most recent of11 resultswithin the time period is included. Magnesium 1.6 1.6 - 2.6 mg/dL 10/24/2018 6:31 AM T [facility] Blood BLOOD SPECIMEN / Unknown Lab Venipuncture / Unknown 10/24/2018 5:31 AM CDT 10/24/2018 6:01 AM CDT Hilary Vanegas MD LAB - CHEMISTRY [facility] [address] [phone] * LAB MISC TEST (NOT BLOOD) (10/23/2018 11:11 AM CDT) Test Name 10/31/2018 4:08 PM CDT [facility] REF LAB NON INTERF Test Result 10/31/2018 4:08 PM CDT [facility] REF [facility] NON INTERF Comment Ref Lab 9 4:08 PM CDT [facility] REF LAB NON INTERF Other URINE / Unknown Collection / Unknown 10/23/2018 11:11 AM CDT 10/23/2018 11:11 AM CDT Brittany Stubbs MD LAB - BODY FLUID ORD ERABLES [facility] REF LAB NON INTERF [address] * XR CHEST 2VW (10/22/2018 6:05 PM CDT) Only the most recent of2 resultswithin the time period is included. Anatomical Region Laterality Modality Chest Radiographic Earline ging 10/23/2018 8:11 AM CDT Impressions 10/23/2018 9:22 AM CDT IMPRESSION: Small left pleural effusion. Dictated by Gina Mao MD (vice president of communications). This report was approved by Gina Mao on 10/23/2018 8:49 AM . I, Dr. NED ISAACS have personally reviewed and interpreted this examination/study. This report was electronically signed by NED ISAACS on 10/23/2018 9:22 AM . Narrative 10/23/2018 9:22 AM CDT EXAMINATION: XR CHEST 2VW HISTORY: transplant pre-op COMPARISON: 10/20/2018 FINDINGS: There is a small left pleural effusion, new. The right lung is clear. There is no focal consolidation or pneumothorax. The cardiomediastinal silhouette is normal. The visible bony thorax is intact. Procedure Note Ned Isaacs MD - 10/23/2018 EXAMINATION: XR CHEST 2VW HISTORY: transplant pre-op COMPARISON: 10/20/2018 FINDINGS: There is a small left pleural effusion, new. The right lung is clear. There is no focal consolidation or pneumothorax. The cardiomediastinal silhouette is normal. The visible bony thorax is intact. IMPRESSION: Small left pleural effusion. Dictated by Gina Mao MD (vice president of communications). This report was approved by Gina Mao on 10/23/2018 8:[address] NED Smyth have personally reviewed and interpreted this examination/study. This report was electronically signed by NED ISAACS on 10/23/2018 9:22 AM . Brittany Stubbs MD DIAGNOSTIC IMAGING O RDERABLES * XR PANOREX (10/22/2018 6:05 PM CDT) Anatomical Region Laterality Modality Head Radiographic Earline ging 10/23/2018 7:45 AM CDT Impressions 10/23/2018 11:51 AM CDT Impression: There is no evidence of periodontal disease or periapical abscess. Dictated by Deon Wilson MD (vice president of communications) Libra, Dr. TIANNA BOOTH have personally reviewed and interpreted this examination/study. This report was electronically signed by TIANNA BOOTH on 10/23/2018 11:51 AM . Narrative 10/23/2018 11:51 AM CDT Exam: XR PANOREX Date: 10/22/2018 6:43 PM History: liver transplant pre-op Findings: Multiple teeth are missing. There are multiple dental restorations. There is no periodontal disease or periapical abscess. The mandible and temporomandibular joints are intact. Procedure Note Tianna Booth DO - 10/23/2018 Exam: XR PANOREX Date: 10/22/2018 6:43 PM History: liver transplant pre-op Findings: Multiple teeth are missing. There are multiple dental restorations.There is no periodontal disease or periapical abscess. The mandible and temporomandibular joints are intact. Impression: There is no evidence of periodontal disease or periapical abscess. Dictated by Deon Wilson MD (vice president of communications) Dr. TIANNA Smyth have personally reviewed and interpreted this examination/study. This report was electronically signed by TIANNA BOOTH on 10/23/2018 11:51 AM . Brittany Stubbs MD DIAGNOSTIC IMAGING O RDERABLES * TRANSFUSE RED BLOOD CELL LEUKOREDUCED UNIT(S) (10/22/2018 12:22 PM CDT) Brittany Stubbs MD NURSING - BLOOD PROD TRANSFUSION * PREPARE (CROSSMATCH) RBC UNIT(S), 1 Units (10/22/2018 8:41 AM CDT) Only the most recent of2 resultswithin the time period is included. Unit Description LR Red Cells [facility] Unit ABO A [facility] Unit Rh POS [facility] Product Code RL1 [facility] Unit Donor # [id number] [facility] Unit Status transfused [facility] Product Number [id number] [facility] B LOOD [facility] LAB Blood Type Barcode 6200 [facility] Blood Bank BLOOD SPECIMEN / Unknown 10/22/2018 8:41 AM CDT 10/22/2018 8:41 AM CDT Brittany Stubbs MD LAB - BLOOD BANK ORD ERABLES Performing Organization Address City/[facility]/ZIP Co de Phone Number [facility] [address] * TYPE + SCREEN PANEL (10/22/2018 8:21 AM CDT) Only the most recent of3 resultswithin the time period is included. Antibody Screen NEG 9 9:34 AM CDT [facility] ABO Rh A POS 10/22/2018 9:34 AM CDT [facility] Blood Bank BLOOD SPECIMEN / Unknown Lab Venipuncture / Unknown 10/22/2018 8:21 AM CDT 10/22/2018 8:40 AM CDT Brittany Stubbs MD LAB - BLOOD BANK ORD ERABLES Performing Organization Address City[facility]/ZIP Co de Phone Number [facility] [address] * STRONGYLOIDES ANTIBODY IGG (10/22/2018 6:01 AM CDT) Strongyloides Antibody IgG 0.1 <=0.9 IV 10/25/2018 12:36 AM CDT [facility] ([facility]) Comment: INTERPRETIVE INFORMATION: Strongyloides Ab, IgG by DIANA 0.9 IV or less....... Negative - No significant level of Strongyloides IgG antibody detected. 1.0 IV................Equivocal - The Strongyloides IgG antibody result is borderline and therefore inconclusive. Recommend retesting the patient in 2-4 weeks, if clinically indicated. 1.1 IV or greater ... Positive - IgG antibodies to Strongyloides detected, which may suggest current or past infection. False-positive results may occur with prior exposure to other helminth infections. Testing low-prevalence populations may also result in false-positive results. Performed by [facility], [address] [place] [address] [email or web address], Fidel Parr MD, Lab. Director Blood BLOOD SPECIMEN / Unknown Lab Venipuncture / Unknown 10/22/2018 6:01 AM CDT 10/22/2018 7:09 AM CDT Brittany Stubbs MD LAB - SEROLOGY ORDER RADHA [facility]) [address] [place] [address], [facility] * DELPHINE BLOOD SCREEN W/REFLEX TITER (10/22/2018 6:01 AM CDT) DELPHINE Negative 10/23/2018 5:09 PM CDT [facility] ([facility]) Comment: Negative <1:80 Borderline 1:80 Positive >1:80 Blood BLOOD SPECIMEN / Unknown Lab Venipuncture / Unknown 10/22/2018 6:01 AM CDT 10/22/2018 7:09 AM CDT Narrative [facility] ([facility]) - 10/23/2018 5:09 PM CDT Performed at: [address] [place] [id number] Warehouse Operations Manager: Wilder Jean PhD, Phone: [phone] Brittany Stubbs MD LAB - CHEMISTRY [facility] Performing Organization Address [facility] Co de Phone Number [facility] ([facility]) [address] [place] [address], [place] * FARZAD-BENNETT VIRUS AB TO EARLY AG IGG (10/22/2018 6:01 AM CDT) Pathologist [facility] Farzad-Bennett Virus Early Antigen Antibody IgG <9.0 0.0 - 8.9 U/mL 10/23/2018 2:14 PM CDT [facility] ([facility]) Comment: Negative < 9.0 Equivocal 9.0 - 10.9 Positive >10.9 Blood BLOOD SPECIMEN / Unknown Lab Venipuncture / Unknown 10/22/2018 6:01 AM CDT 10/22/2018 7:09 AM CDT Narrative [facility] ([facility]) - 10/23/2018 2:14 PM CDT Performed at: [address] [place], [place] [id number] [place], [place] [id number] Warehouse Operations Manager: Wilder Jean PhD, Phone: [phone] Brittany Stubbs MD LAB - CHEMISTRY [facility] Performing Organization Address [facility] de Phone Number [facility]) [address] [place] [address] * SYPHILIS ANTIBODY CASCADING REFLEX (10/22/2018 5:59 AM CDT) [facility] Treponema pallidum Antibody Non-react tyson Non-react tyson 10/22/2018 8:34 AM CDT [facility] Comment: No Laboratory evidence of syphilis infection. Note: Circulating antibodies may be low or undetectable in early infection. If recent exposure is suspected, re-draw sample in 2-4 weeks and repeat testing. Blood BLOOD SPECIMEN / Unknown Lab Venipuncture / Unknown 10/22/2018 5:59 AM CDT 10/22/2018 7:08 AM CDT Brittany Stubbs MD LAB - SEROLOGY ORDER RADHA [address] [phone] * PSA FREE (10/22/2018 5:59 AM CDT) Pathologist [facility] PSA Free <0.10 0.00 - 0.50 ng/mL 10/22/2018 8:40 AM CDT [facility] Blood BLOOD SPECIMEN / Unknown Lab Venipuncture / Unknown 10/22/2018 5:59 AM CDT 10/22/2018 7:07 AM CDT Brittany Stubbs MD LAB - CHEMISTRY [facility] Performing Organization Address City/[facility]/ZIP Co de Phone Number [address] [phone] * CYTOMEGALOVIRUS ANTIBODY IGG BLOOD (10/22/2018 5:59 AM CDT) [facility] Cytomegalovirus Antibody IgG <0.60 0.00 - 0.59 U/mL 10/24/2018 6:16 AM CDT [facility] ([facility]) Comment: Negative <0.60 Equivocal 0.60 - 0.69 Positive >0.69 Blood BLOOD SPECIMEN / Unknown Lab Venipuncture / Unknown 10/22/2018 5:59 AM CDT 10/22/2018 7:08 AM CDT Narrative [facility] ([facility]) - 10/24/2018 6:16 AM CDT Performed at: 01 - [facility] [address] [place], [place] [id number] Warehouse Operations Manager: Wilder Jean PhD, Phone: [phone] Brittany Stubbs MD LAB - CHEMISTRY [facility] ([facility]) [address] [place] [address] * RUBEOLA ANTIBODY IGG (10/22/2018 5:59 AM CDT) Pathologist [facility] Measles (Rubeola) Antibody IgG >300.0 Immune >29.9 AU/mL 10/23/2018 3:10 PM CDT [facility] ([facility]) Comment: Negative <25.0 Equivocal 25.0 - 29.9 Positive >29.9 Presence of antibodies to Rubeola is presumptive evidence of immunity except when acute infection is suspected. Blood BLOOD SPECIMEN / Unknown Lab Venipuncture / Unknown 10/22/2018 5:59 AM CDT 10/22/2018 7:08 AM CDT Narrative [facility] ([facility]) - 10/23/2018 3:10 PM CDT Performed at: [address] [place] [id number] Warehouse Operations Manager: Wilder Jean PhD, Phone: [phone] Brittany Stubbs MD LAB - CHEMISTRY [facility] Performing Organization Address [facility] de Phone Number [facility] ([facility]) [address] [place] [address] * VARICELLA ZOSTER ANTIBODY IGG (10/22/2018 5:59 AM CDT) [facility] Varicella zoster Virus Antibody IgG 3858 Immune >165 index 10/23/2018 3:10 PM CDT [facility] ([facility]) Comment: Negative <135 Equivocal 135 - 165 Positive >165 A positive result generally indicates exposure to the pathogen or administration of specific immunoglobulins, but it is not indication of active infection or stage of disease. Blood BLOOD SPECIMEN / Unknown Lab Venipuncture / Unknown 10/22/2018 5:59 AM CDT 10/22/2018 7:09 AM CDT Narrative [facility] ([facility]) - 10/23/2018 3:10 PM CDT Performed at: [address] [place] [id number] Warehouse Operations Manager: Wilder Jean PhD, Phone: [phone] Brittany Stubbs MD LAB - CHEMISTRY [facility] Performing Organization Address [facility] de Phone Number [facility] ([facility]) [address] [place] [address], [facility] * (ABNORMAL) TRANSFERRIN (10/22/2018 5:59 AM CDT) Transferrin 120(L) 174 - 382 mg/dL 10/22/2018 9:27 AM CDT [facility] Transferrin Saturation % 21 16 - 50 % 10/22/2018 9:27 AM CDT [facility] Blood BLOOD SPECIMEN / Unknown Lab Venipuncture / Unknown 10/22/2018 5:59 AM CDT 10/22/2018 7:08 AM CDT Brittany Stubbs MD LAB - CHEMISTRY [facility] [address] [phone] * TOXOPLASMA GONDII ANTIBODY IGG (10/22/2018 5:59 AM CDT) Pathologist [facility] Toxoplasma gondii Antibody IgG Quantitative <3.0 0.0 - 7.1 IU/mL 10/23/2018 7:20 AM CDT [facility] ([facility]) Comment: Negative <7.2 Equivocal 7.2 - 8.7 Positive >8.7 Blood BLOOD SPECIMEN / Unknown Lab Venipuncture / Unknown 10/22/2018 5:59 AM CDT 10/22/2018 7:08 AM CDT Narrative [facility] ([facility]) - 10/23/2018 7:20 AM CDT Performed at: - [facility] [address] [place], [place] [id number] Warehouse Operations Manager: Wilder Jean PhD, Phone: [phone] Brittany Stubbs MD LAB - CHEMISTRY [facility] ([facility]) [address] [place] [address] * (ABNORMAL) IRON BLOOD (10/22/2018 5:59 AM CDT) Iron 32(L) 50 - 175 mcg/dL 10/22/2018 9:27 AM CDT [facility] Blood BLOOD SPECIMEN / Unknown Lab Venipuncture / Unknown 10/22/2018 5:59 AM CDT 10/22/2018 7:08 AM CDT Brittany Stubbs MD LAB - CHEMISTRY [facility] RE[facility] [address] [place] [address] * (ABNORMAL) CBC W/O DIFFERENTIAL (10/21/2018 2:48 PM CDT) Only the most recent of6 resultswithin the time period is included. WBC 4.4 3.5 - 10.5 10 3/uL 10/21/2018 3:56 PM [facility] RBC 2.27(L) 4.30 - 5.70 10 6/uL 10/21/2018 3:56 PM [facility] Hemoglobin 7.3(L) 13.5 - 17.5 g/dL 10/21/2018 3:56 PM [facility] Hematocrit 22.1(L) 39.0 - 50.0 % 10/21/2018 3:56 PM [facility] MCV 97.4(H) 81.0 - 97.0 fL 10/21/2018 3:56 PM [facility] MCH 32.2 28.0 - 34.0 pg 10/21/2018 3:56 PM [facility] MCHC 33.0 32.0 - 36.0 g/dL 10/21/2018 3:56 PM [facility] Platelet Count 103(L) 150 - 400 10 3/uL 10/21/2018 3:56 PM [facility] RDW-SD 52.0(H) 36.0 - 50.0 fL 10/21/2018 3:56 PM [facility] RDW-CV 15.1(H) 11.2 - 14.8 % 10/21/2018 3:56 PM [facility] MPV 8.7(L) 9.3 - 12.8 fL 10/21/2018 3:56 PM [facility] nRBC Absolute 0.00 0 10 3/uL 10/21/2018 3:56 PM [facility] nRBC Auto 0.0 0 /100 WBC 10/21/2018 3:56 PM CDT [facility] Blood BLOOD SPECIMEN / Unknown Lab Venipuncture / Unknown 10/21/2018 2:48 PM CDT 10/21/2018 3:43 PM CDT Brittany Stubbs MD LAB - HEMATOLOGY ORD ERABLES [facility] [address] [phone] * TRANSFUSE RED BLOOD CELL LEUKOREDUCED UNIT(S) (10/20/2018 2:27 PM CDT) Perfecto Miner MD NURSING - BLOOD PROD TRANSFUSION * XR ABDOMEN KUB PORTABLE (10/20/2018 9:09 AM CDT) Only the most recent of6 resultswithin the time period is included. Anatomical Region Laterality Modality Radiographic Earline ging 10/20/2018 9:13 AM CDT Impressions 10/20/2018 2:03 PM CDT IMPRESSION: Resolution of prior gaseous distention of the bowel without evidence of bowel obstruction. Dictated by Deon Wilson MD (vice president of communications). I, Dr. TIANNA BOOTH have personally reviewed and interpreted this examination/study. This report was electronically signed by TIANNA BOOTH on 10/20/2018 2:03 PM . Narrative 10/20/2018 2:03 PM CDT EXAMINATION: XR ABDOMEN KUB PORTABLE HISTORY: K70.31: Alcoholic cirrhosis of liver with ascites FINDINGS: Comparison is made with an abdominal radiograph from 10/19/2018 Diffuse abdominal ascites is seen. An enteric tube overlies the stomach with tip terminating near the gastric pylorus/antrum. Skin adriana overlie the lower abdomen. A surgical drain loops in the lower mid abdomen with tip overlying the sacrum. There are no dilated bowel loops. No pathological calcification is seen. The visible osseous structures are intact. Procedure Note Tianna Booth DO - 10/20/2018 EXAMINATION: XR ABDOMEN KUB PORTABLE HISTORY: K70.31: Alcoholic cirrhosis of liver with ascites FINDINGS: Comparison is made with an abdominal radiograph from 10/19/2018 Diffuse abdominal ascites is seen. An enteric tube overlies the stomach with tip terminating near the gastric pylorus/antrum. Skin staplesoverlie the lower abdomen. A surgical drain loops in the lower mid abdomen with tip overlying the sacrum. There are no dilated bowel loops. No pathological calcification is seen. The visible osseous structures are intact. IMPRESSION: Resolution of prior gaseous distention of the bowel without evidence of bowel obstruction. Dictated by Deon Wilson MD (vice president of communications). Dr. TIANNA Smyth have personally reviewed and interpreted this examination/study. This report was electronically signed by TIANNA BOOTH on 10/20/2018 2:03 PM . Hilary Vanegas MD DIAGNOSTIC IMAGING O RDERABLES * XR CHEST 1VW PORTABLE (10/20/2018 4:29 AM CDT) Only the most recent of2 resultswithin the time period is included. Anatomical Region Laterality Modality Chest Radiographic Earline ging 10/20/2018 8:22 AM CDT Impressions 10/20/2018 1:42 PM CDT IMPRESSION: Left basilar atelectasis. Dictated by Gina Mao MD (vice president of communications). Dr. TIANNA Smyth have personally reviewed and interpreted this examination/study. This report was electronically signed by TIANNA BOOTH on 10/20/2018 1:42 PM . Narrative 10/20/2018 1:42 PM CDT EXAMINATION: XR CHEST 1VW PORTABLE HISTORY: nausea, vomiting s/p NGT placement COMPARISON: Chest radiograph dated 09/10/2018 FINDINGS: An enteric tube courses into the stomach with the tip not imaged. There is left basilar atelectasis. There is no focal consolidation, pleural effusion, or pneumothorax. The cardiomediastinal silhouette is normal. Right humerus surgical fixation is partially imaged. Procedure Note Tianna Booth DO - 10/20/2018 EXAMINATION: XR CHEST 1VW PORTABLE HISTORY: nausea, vomiting s/p NGT placement COMPARISON: Chest radiograph dated 09/10/2018 FINDINGS: An enteric tube courses into the stomach with the tip not imaged. There is left basilar atelectasis. There is no focal consolidation, pleural effusion, or pneumothorax. The cardiomediastinal silhouette is normal. Right humerus surgical fixation is partially imaged. IMPRESSION: Left basilar atelectasis. Dictated by Gina Mao MD (vice president of communications). I, Dr. TIANNA BOOTH have personally reviewed and interpreted this examination/study. This report was electronically signed by TIANNA BOOTH on 10/20/2018 1:42 PM . Hilary Vanegas MD DIAGNOSTIC IMAGING O RDERABLES * TRANSFUSE RED BLOOD CELL LEUKOREDUCED UNIT(S) (10/19/2018 10:10 AM CDT) Willa Meier MD NURSING - BLOOD UT OD TRANSFUSION * CULTURE FLUID+GRAM STAIN (10/18/2018 3:33 PM CDT) Only the most recent of4 resultswithin the time period is included. Culture No growth JACOB 10/26/2018 3:06 PM CDT [facility] MICRO[facility] Gram Stain Rare Polymorphonuclear cells 10/26/2018 3:06 PM CDT [facility] Gram Stain Heavy Red blood cells 10/26/2018 3:06 PM CDT [facility]CRO[facility] Gram Stain No organisms seen 019 3:06 PM CDT [facility]CRO[facility] Fluid BODY FLUID SPECIMEN / Unknown Collection / Unknown 10/18/2018 3:33 PM CDT 10/18/2018 6:06 PM CDT Brooklynn Awad MD LAB - MICROBIOL OGY ORDERABLES [facility] MICROBIOLOGY [address] [place] [address], [facility] [phone] * CULTURE ANAEROBE (10/18/2018 3:33 PM CDT) Only the most recent of3 resultswithin the time period is included. Culture No anaerobic organisms isolated JACOB 10/24/2018 11:57 AM CDT [facility]CRO[facility] Microbiology HEMATOMA / Unknown Collection / Unknown 10/18/2018 3:33 PM CDT 10/18/2018 6:06 PM CDT Brooklynn Awad MD LAB - MICROBIOL OGY ORDERABLES Performing Organization Address [facility] Co de Phone Number [facility] MICRO[facility] [address] [place] [address], [facility] [phone] * SODIUM URINE RANDOM (10/17/2018 3:22 PM CDT) Sodium Urine <20 Not Established mmol/L 10/17/2018 4:06 PM CDT [facility] Urine URINE SPECIMEN OBTAINED BY CLEAN CATCH PROCEDURE / Unknown Collection / Unknown 10/17/2018 3:22 PM CDT 10/17/2018 3:31 PM CDT Julio Cesar Loenard MD LAB - URINE CH EMISTRY ORDERABLES Performing Organization Address [facility] [place] [place] [address], [facility] [phone] * OSMOLALITY URINE (10/17/2018 3:22 PM CDT) Osmolality Urine 399 50 - 1,200 mOsm/kg 10/17/2018 4:36 PM CDT [facility] Comment:Confirmed by repeat analysis. Urine URINE SPECIMEN OBTAINED BY CLEAN CATCH PROCEDURE / Unknown Collection / Unknown 10/17/2018 3:22 PM CDT 10/17/2018 3:31 PM CDT Julio Cesar Leonard MD LAB - URINE CH EMISTRY ORDERABLES Performing Organization Address [facility] [place] [place] [address], [facility] [phone] * CREATININE URINE RANDOM (10/17/2018 3:22 PM CDT) Creatinine Urine 117 Not Established mg/dL 10/17/2018 4:14 PM CDT [facility] Comment: Result obtained by dilution. Urine URINE SPECIMEN OBTAINED BY CLEAN CATCH PROCEDURE / Unknown Collection / Unknown 10/17/2018 3:22 PM CDT 10/17/2018 3:31 PM CDT Julio Cesar Leonard MD LAB - URINE CH EMISTRY ORDERABLES Performing Organization Address [facility]/ZIP Co de Phone Number [address] [phone] * OSMOLALITY BLOOD (10/17/2018 9:53 AM CDT) Osmolality 272 270 - 300 mOsm/kg 10/17/2018 12:05 PM CDT [facility] Comment:Confirmed by repeat analysis. Blood BLOOD SPECIMEN / Unknown Lab Venipuncture / Unknown 10/17/2018 9:53 AM CDT 10/17/2018 10:30 AM CDT Julio Cesar Leonard MD LAB - CHEMISTR Y ORDERABLES Performing Organization Address [facility]/ZIP Co de Phone Number [address] [phone] * XR ABDOMEN KUB (10/16/2018 7:10 PM CDT) Only the most recent of4 resultswithin the time period is included. Anatomical Region Laterality Modality Abdomen Radiographic Earline ging 10/17/2018 8:10 AM CDT Impressions 10/17/2018 8:20 AM CDT IMPRESSION: No evidence of bowel obstruction. Dictated by Gina Mao MD (vice president of communications). I, Dr. TIANNA BOOTH have personally reviewed and interpreted this examination/study. This report was electronically signed by TIANNA BOOTH on 10/17/2018 8:20 AM . Narrative 10/17/2018 8:20 AM CDT EXAMINATION: XR ABDOMEN KUB HISTORY: abdominal distension in the setting of hernia. Concern for SBO COMPARISON: Chest radiograph dated 10/16/2018 FINDINGS: A drain enters from the right lateral abdomen and terminates overlying the pelvis. Midline skin adriana are again seen. There are no dilated bowel loops. No pathological calcification is seen. The visible osseous structures are intact. Pneumoperitoneum cannot be excluded on the basis of supine radiographs. Procedure Note Tianna Booth, DO - 10/17/2018 EXAMINATION: XR ABDOMEN KUB HISTORY: abdominal distension in the setting of hernia. Concern for SBO COMPARISON: Chest radiograph dated 10/16/2018 FINDINGS: A drain enters from the right lateral abdomen and terminates overlyingthe pelvis. Midline skin adriana are again seen. There are no dilated bowel loops. No pathological calcification is seen. The visible osseous structures are intact. Pneumoperitoneum cannot be excluded on the basisof supine radiographs. IMPRESSION: No evidence of bowel obstruction. Dictated by Gina Mao MD (vice president of communications). I, Dr. TIANNA BOOTH have personally reviewed and interpreted this examination/study. This report was electronically signed by TIANNA BOOTH on 10/17/2018 8:20 AM . Morales Bazzi MD DIAGNOSTIC IMAGING O RDERABLES * (ABNORMAL) CELL COUNT W DIFFERENTIAL FLUID (10/15/2018 1:45 AM CDT) Only the most recent of2 resultswithin the time period is included. Color Fluid Yellow(A) Colorless, Straw 10/15/2018 2:25 AM [facility] Clarity Fluid Hazy(A) Clear 10/15/2018 2:25 AM [facility] Volume Fluid 2.0 mL 10/15/2018 2:25 AM [facility] WBC Fluid 172 Reference Range Not Established /uL 10/15/2018 2:25 AM [facility] RBC Fluid 2,000 Reference Range Not Established /uL 10/15/2018 2:25 AM [facility] Differential Manual Differential to follow. 10/15/2018 2:25 AM [facility] Fluid (Ascities) Collection / Unknown 10/15/2018 1:45 AM CDT 10/15/2018 2:03 AM CDT Narrative [facility] - 10/15/2018 2:25 AM CDT No established reference range for WBC and RBC body fluid count. Armani Cooney DO LAB - BODY FLUID ORDERABLES [facility] [address] [place] [address] * DIFFERENTIAL MANUAL FLUID (10/15/2018 1:45 AM CDT) Only the most recent of2 resultswithin the time period is included. Segs % Fluid 3 % 10/15/2018 3:25 AM CDT [facility] Lymphocytes % Fluid 54 % 10/15/2018 3:25 AM CDT [facility] Monocytes % Fluid 21 % 019 3:25 AM CDT [facility] Macrophages % Fluid 14 % 10/15/2018 3:25 AM CDT [facility] Mesothelials % Fluid 8 % 10/15/2018 3:25 AM CDT [facility] Fluid (Ascities) Collection / Unknown 10/15/2018 1:45 AM CDT 10/15/2018 2:03 AM CDT Armani Cooney DO LAB - BODY FLUID ORDERABLES [facility] [address] [place], [place] [id number] [place] [address] * CULTURE URINE (10/15/2018 12:28 AM CDT) Only the most recent of2 resultswithin the time period is included. Culture Urine <10,000 CFU/mL urogenital delmi JACOB 10/16/2018 9:10 AM CDT [facility]CRO[facility] Urine URINE SPECIMEN OBTAINED BY CLEAN CATCH PROCEDURE / Unknown Collection / Unknown 10/15/2018 12:28 AM CDT 10/15/2018 12:35 AM CDT Armani Cooney DO LAB - MICROBIOLO GY ORDERABLES [facility] MICRO[facility]OLOG[facility] [address] [place] [address], [facility] [phone] * CULTURE BLOOD (10/15/2018 12:25 AM CDT) Only the most recent of4 resultswithin the time period is included. Culture No growth day 5 JACOB 10/20/2018 5:00 AM CDT [facility]CROBIOLOG[facility] Blood PERIPHERAL BLOOD / Unknown Lab Venipuncture / Unknown 10/15/2018 12:25 AM CDT 10/15/2018 12:40 AM CDT Armani Cooney DO LAB - MICROBIOLO GY ORDERABLES [facility]CROBIOLOG[facility] [address] [place] [address], [facility] [phone] * LACTIC ACID BLOOD (10/15/2018 12:25 AM CDT) Only the most recent of4 resultswithin the time period is included. Lactic Acid-Stat 1.1 0.5 - 2.2 mmol/L 10/15/2018 12:55 AM CDT [facility] Blood BLOOD SPECIMEN / Unknown Lab Venipuncture / Unknown 10/15/2018 12:25 AM CDT 10/15/2018 12:38 AM CDT Armani Cooney DO LAB - CHEMISTRY ORDERABLES Performing Organization Address [facility]/[place] [address], [facility] [phone] * PTT [facility] (10/15/2018 12:24 AM CDT) Only the most recent of2 resultswithin the time period is included. APTT 36.8 23.0 - 38.4 Seconds 10/15/2018 12:55 AM CDT [facility] Comment: Suggested therapeutic range for full dose I.V. heparin therapy for venous thromboembolism is 66.0-91.0 seconds. Blood BLOOD SPECIMEN / Unknown Lab Venipuncture / Unknown 10/15/2018 12:24 AM CDT 10/15/2018 12:38 AM CDT Armani Cooney DO LAB - COAGULATIO N ORDERABLES Performing Organization Address City/[facility]/[place] [address], [facility] [phone] * EGD (10/03/2018 10:56 AM HOSPITALIST PHYSICIAN) Report Endoscopy POC Endoscopy Department Report _ Patient Name: Rhett Garner Procedure Date: 10/03/2018 10:56 AM Date of : 1960 Classification: Outpatient Gender: Male _ Providers: Julio Cesar Leonard Referring MD: Julio Cesar Leonard (Referring MD) Procedure: Upper GI endoscopy Indications: Cirrhosis with suspected esophageal varices Medications: Monitored Anesthesia Care Description of Procedure: After obtaining informed consent, the endoscope was passed under direct vision. Throughout the procedure, the patient's blood pressure, pulse, and oxygen saturations were monitored continuously. The GIF-H190 was introduced through the mouth, and advanced to the third part of duodenum. The upper GI endoscopy was accomplished without difficulty. The patient tolerated the procedure well. Findings: The Z-line was irregular and was found 39 cm from the incisors. Large (> 5 mm) varices were found in the lower third of the esophagus. Estimated blood loss: none. Three bands were successfully placed with complete eradication, resulting in deflation of varices. There was no bleeding during the procedure. Three bands were successfully placed with complete eradication, resulting in deflation of varices. There was no bleeding during the procedure. LA Grade B (one or more mucosal breaks greater than 5 mm, not extending between the tops of two mucosal folds) esophagitis with no bleeding was found. A medium-sized hiatal hernia was present. Mild portal hypertensive gastropathy was found in the stomach. The third portion of the duodenum was normal. The esophagus was normal. The stomach was normal. The examined duodenum was normal. Estimated Blood Loss: Estimated blood loss: none. Complications: No immediate complications. Impression: - Z-line irregular, 39 cm from the incisors. - Large (> 5 mm) esophageal varices. Completely eradicated. Banded. - LA Grade B esophagitis. - Medium-sized hiatal hernia. - Portal hypertensive gastropathy. - Normal third portion of the duodenum. - Normal esophagus. - Normal stomach. - Normal examined duodenum. - No specimens collected. Recommendation: - Repeat upper endoscopy in 2 months for surveillance. - Use a proton pump inhibitor PO daily. Attending Participation: I personally performed the entire procedure. Procedure Code(s): --- Professional --- 16104, Esophagogastroduo denoscopy, flexible, transoral; with band ligation of esophageal/gastri c varices Diagnosis Code(s): --- Professional --- K22.8, Other specified diseases of esophagus K74.60, Unspecified cirrhosis of liver I85.10, Secondary esophageal varices without bleeding K20.9, Esophagitis, unspecified K44.9, Diaphragmatic hernia without obstruction or gangrene K76.6, Portal hypertension K31.89, Other diseases of stomach and duodenum CPT copyright 2016 [employer]. All rights reserved. The codes documented in this report are preliminary and upon icd 9 coder review may be revised to meet current compliance requirements. Julio Cesar Leonard, 10/03/2018 12:39:02 PM Note Initiated On: 10/03/2018 10:56 AM Number of Addenda: 0 [facility] [address] [place] [address] [facility] 10/03/2018 10:5 6 AM HOSPITALIST PHYSICIAN Julio Cesar Leonard MD GI PROCEDURE O RDERABLES [facility] * (ABNORMAL) GLUCOSE - POINT OF CARE (09/19/2018 11:58 AM HOSPITALIST PHYSICIAN) Only the most recent of14 resultswithin the time period is included. Glucose WB/POC 154(H) 70 - 115 mg/dL 09/19/2018 12:44 PM HOSPITALIST PHYSICIAN [facility] Specimen Type Arterial/C apillary 09/19/2018 12:44 PM HOSPITALIST PHYSICIAN [facility] Blood BLOOD SPECIMEN / Unknown 09/19/2018 11:58 AM HOSPITALIST PHYSICIAN 09/19/2018 12:44 PM HOSPITALIST PHYSICIAN Narrative [facility] - 09/19/2018 12:44 PM HOSPITALIST PHYSICIAN [employer] Worker: DADA CASTANON Jose Kimbrough MD LAB - POIN OF [facility] ORDERABLES [address] [phone] * FL UGI W SM BOWEL FOLLOW THRU (09/17/2018 7:28 PM HOSPITALIST PHYSICIAN) Anatomical Region Laterality Modality Abdomen Radiographic Earline ging 09/17/2018 7:29 PM HOSPITALIST PHYSICIAN Impressions 09/18/2018 12:53 PM HOSPITALIST PHYSICIAN Impression: Distended proximal loops of ileum with nondilated distal loops is seen. There is normal transit time through the bowel. Findings are consistent with a partial small bowel obstruction. Findings were discussed with Dr. Spence by Dr. Rice at 7:37 PM on 09/17/2018. Dictated by Vivian Rice MD (vice president of communications). Small bowel follow-through I, Dr. TIANNA BOOTH have personally reviewed and interpreted this examination/study. This report was electronically signed by TIANNA BOOTH on 09/18/2018 12:53 PM . Narrative 09/18/2018 12:53 PM HOSPITALIST PHYSICIAN EXAMINATION: Small bowel series HISTORY: SBO PROCEDURE: The patient was given water-soluble contrast and serial radiographs were obtained at 15 to 30 minute intervals. FINDINGS: Comparison is made with concurrent CT abdomen pelvis. The community outreach worker radiograph multiple gas-distended loops of bowel are seen which appear to be . This appearance is consistent with history of obstruction. A nasogastric tube terminates at the gastroesophageal junction on the community outreach worker radiograph and was subsequently advanced. The stomach appears normal. There is normal transit through the proximal bowel. Multiple dilated loops of bowel are seen in the left mid abdomen which converge into nondistended loops of bowel in the right hemiabdomen. At 30 minutes the contrast appears to have moved past the point of obstruction and opacifies the distal ileum. At 45 minutes the contrast is seen in the colon and rectum. Procedure Note Tianna Booth, DO - 09/18/2018 EXAMINATION: Small bowel series HISTORY: SBO PROCEDURE: The patient was given water-soluble contrast and serial radiographs were obtained at 15 to 30 minute intervals. FINDINGS: Comparison is made with concurrent CT abdomen pelvis. The community outreach worker radiograph multiple gas-distended loops of bowel are seenwhich appear to be . This appearance is consistent with history of obstruction. A nasogastric tube terminates at the gastroesophageal junction on the community outreach worker radiograph and was subsequently advanced. The stomach appears normal. There is normal transit through the proximal bowel. Multiple dilated loops of bowel are seen in the left mid abdomen which converge into nondistended loops of bowel in the righthemiabdomen. At 30 minutes the contrast appears to have moved past the point of obstruction and opacifies the distal ileum. At 45 minutes the contrastis seen in the colon and rectum. Impression: Distended proximal loops of ileum with nondilated distal loops is seen. There is normal transit time through the bowel. Findings are consistent with a partial small bowel obstruction. Findings were discussed with Dr. Spence by Dr. Rice at 7:37 PM on 09/17/2018. Dictated by Vivian Rice MD (vice president of communications). Small bowel follow-through I, Dr. TIANNA BOOTH have personally reviewed and interpreted this examination/study. This report was electronically signed by TIANNA BOOTH on 09/18/2018 12:53 PM . Shailesh Falk MD FLUOROSCOPY ORD ERABLES * CT ABDOMEN PELVIS W CONTRAST (09/16/2018 2:50 PM HOSPITALIST PHYSICIAN) Only the most recent of2 resultswithin the time period is included. Anatomical Region Laterality Modality Abdomen, Pelvis Computed Tomogra phy 09/16/2018 2:54 PM HOSPITALIST PHYSICIAN Impressions 09/16/2018 3:56 PM HOSPITALIST PHYSICIAN IMPRESSION: 1. Dilated loops of small bowel in [...] splenomegaly, and numerous perigastric and paraesophageal varices. These findings were discussed with Dr. Barraza by Dr. Lanier at 3:00 PM on 09/16/2017. Dictated by Rodríguez Lanier DO (vice president of communications). I, Dr. MYA CHAUHAN M.D. have personally reviewed and interpreted this examination/study. This report was electronically signed by MYA CHAUHAN M.D. on 09/16/2018 3:56 PM . Narrative 09/16/2018 3:56 PM HOSPITALIST PHYSICIAN EXAMINATION: Computed tomography (CT) of the abdomen and pelvis with contrast HISTORY: Small bowel obstruction. Concern for incarcerated hernia. TECHNIQUE: CT of the abdomen and pelvis was performed following the uneventful administration of 100 mL of Isovue 370 intravenous contrast according to standard protocol. FINDINGS: Comparison is made with a study from 09/08/2017. Mild bilateral dependent atelectasis is present. Otherwise no focal consolidation is seen in the visible lung bases. The heart size is normal without pericardial effusion. The liver has a nodular surface, consistent with hepatic cirrhosis. Heterogeneous areas of attenuation relate to transient hepatic attenuation difference (KARIN). No additional observations are identified on this single phase CT. The portal vein remains dilated. Multiple perigastric, perisplenic, and periesophageal varices are unchanged. The intrahepatic and extrahepatic bile ducts are nondilated. The spleen is enlarged measuring 15.8 cm in craniocaudal dimension. The pancreas and adrenal glands are normal. The kidneys enhance symmetrically. There is no evidence of renal calculus or hydronephrosis. The distal esophagus and stomach appear normal. The proximal small bowel remains dilated with multiple air-fluid levels fecalized contents. There is a transition point to decompressed ileum in the right lower quadrant at the site of previously seen transition point in the right lower quadrant (series 3, image 120 and series 4, image 26). There is no pneumatosis or pneumoperitoneum. The distal small bowel and the colon are decompressed. A large paraumbilical hernia containing loculated ascites and part of a loop of of small bowel is present. No evidence of incarcerated hernia. The appendix is not seen. Moderate volume ascites is unchanged. There is no abdominal lymphadenopathy. The aorta is normal in course and caliber. The urinary bladder is distended with fluid and appears normal. The prostate is normal in size. There is no pelvic lymphadenopathy. Bone windows demonstrate no suspicious lytic or blastic lesions. The visible osseous structures are intact. Multilevel degenerative changes are noted in the spine. Procedure Note Mya Chauhan MD - 09/16/2018 EXAMINATION: Computed tomography (CT) of the abdomen and pelvis with contrast HISTORY: Small bowel obstruction. Concern for incarcerated hernia. TECHNIQUE: CT of the abdomen and pelvis was performed following the uneventful administration of 100 mL of Isovue 370 intravenous contrast according to standard protocol. FINDINGS: Comparison is made with a study from 09/08/2017. Mild bilateral dependent atelectasis is present. Otherwise no focal consolidation is seen in the visible lung bases. The heart size isnormal without pericardial effusion. The liver has a nodular surface, consistent with hepatic cirrhosis. Heterogeneous areas of attenuation relate to transient hepaticattenuation difference (KARIN). No additional observations are identified on this single phase CT. The portal vein remains dilated. Multiple perigastric, perisplenic, and periesophageal varices are unchanged. The intrahepatic and extrahepatic bile ducts are nondilated. The spleen is enlarged measuring 15.8 cm in craniocaudal dimension. The pancreas and adrenal glands are normal. The kidneys enhance symmetrically. There is noevidence of renal calculus or hydronephrosis. The distal esophagus and stomach appear normal. The proximal small bowel remains dilated with multiple air-fluid levels fecalized contents.There is a transition point to decompressed ileum in the right lower quadrantat the site of previously seen transition point in the right lower quadrant (series 3, image 120 and series 4, image 26). There is no pneumatosis or pneumoperitoneum. The distal small bowel and the colon are decompressed. A large paraumbilical hernia containing loculated ascites and part of a loop of of small bowel is present. No evidence of incarcerated hernia.The appendix is not seen. Moderate volume ascites is unchanged. There is no abdominal lymphadenopathy. The aorta is normal in course and caliber. The urinary bladder is distended with fluid and appears normal. The prostate is normal in size. There is no pelvic lymphadenopathy. Bone windows demonstrate no suspicious lytic or blastic lesions. The visible osseous structures are intact. Multilevel degenerative changesare noted in the spine. IMPRESSION: 1. Dilated loops of small bowel in the midabdomen with a point of transition in the right lower quadrant with fecalization is indicativeof a high-grade obstruction, nearly identical in appearance [...] splenomegaly, and numerous perigastric and paraesophageal varices. These findings were discussed with Dr. Barraza by Dr. Lanier at 3:00 PMon 09/16/2017. Dictated by Rodríguez Lanier DO (vice president of communications). I, Dr. MYA CHAUHAN M.D. have personally reviewed and interpreted this examination/study. This report was electronically signed by MYA CHAUHAN M.D. on 09/16/2018 3:56 PM . Sherin Vines MD CT ORDERABLES * (ABNORMAL) URINALYSIS W/MICROSCOPIC NO CULTURE (09/16/2018 12:29 PM HOSPITALIST PHYSICIAN) Only the most recent of2 resultswithin the time period is included. Color UA Netta(A) Straw, Yellow, Colorless 09/16/2018 12:48 PM HOSPITALIST PHYSICIAN [facility] Clarity UA Clear Clear, Slt Cloudy 09/16/2018 12:48 PM HOSPITALIST PHYSICIAN [facility] Specific [place] UA 1.024 1.005 - 1.030 09/16/2018 12:48 PM HOSPITALIST PHYSICIAN [facility] pH UA 5.0 5.0 - 8.0 pH 09/16/2018 12:48 PM HOSPITALIST PHYSICIAN [facility] Protein UA Negative Negative mg/dL 09/16/2018 12:48 PM HOSPITALIST PHYSICIAN [facility] Glucose UA Negative Negative mg/dL 09/16/2018 12:48 PM [facility] Ketone UA Negative Negative mg/dL 09/16/2018 12:48 PM [facility] Bilirubin UA Negative Negative mg/dL 09/16/2018 12:48 PM [facility] Comment: Urine Bilirubin result confirmed by manual Ictotest. Blood UA Negative Negative 09/16/2018 12:48 PM [facility] Nitrite UA Negative Negative 09/16/2018 12:48 PM [facility] Leukocyte Esterase Negative Negative 09/16/2018 12:48 PM [facility] Urobilinogen UA 4.0(A) Negative mg/dL 09/16/2018 12:48 PM [facility] RBC UA 0-2 None Seen, 0-2, 3-5 /HPF 09/16/2018 12:48 PM [facility] WBC UA 0-5 None Seen, 0-5 /HPF 09/16/2018 12:48 PM [facility] Bacteria UA 2+(A) None, Trace /HPF 09/16/2018 12:48 PM [facility] Squamous Epithelial Cells UA None Seen None Seen, 0-2 /HPF 09/16/2018 12:48 PM [facility] Mucus UA 4+(A) None, 1+ /LPF 09/16/2018 12:48 PM [facility] Urine URINE SPECIMEN OBTAINED BY CLEAN CATCH PROCEDURE / Unknown Collection / Unknown 09/16/2018 12:29 PM HOSPITALIST PHYSICIAN 09/16/2018 12:36 PM HOSPITALIST PHYSICIAN Sherin Vines MD LAB - URINALY SIS ORDERABLES Performing Organization Address City/State/[facility] Co de Phone Number [facility] [address] [place] [address] * XR ABD OBSTRUCTION SERIES 2VW (09/16/2018 10:19 AM HOSPITALIST PHYSICIAN) Anatomical Region Laterality Modality Abdomen Radiographic Earline ging 09/16/2018 10:2 5 AM HOSPITALIST PHYSICIAN Impressions 09/16/2018 1:26 PM HOSPITALIST PHYSICIAN IMPRESSION: Distended small bowel is concerning for partial small bowel obstruction. Dictated by Franklin Zazueta MD (vice president of communications). This report was approved by Franklin Zazueta on 09/16/2018 1:[address] MYA Smyth M.D. have personally reviewed and interpreted this examination/study. This report was electronically signed by MYA CHAUHAN M.D. on 09/16/2018 1:26 PM . Narrative 09/16/2018 1:26 PM HOSPITALIST PHYSICIAN EXAMINATION: XR ABD OBSTR SERIES HISTORY: Eval obstruction- Recent SBO, now with N/V, constipation and AbdP COMPARISON: Comparison is made with a study from 09/10/2018. FINDINGS: There is distention of small bowel. Gas is seen in nondistended colon and rectum. Air-fluid levels are seen on the upright view. No free air is seen on the decubitus view. There are no pathologic calcifications. Osseous structures are intact. Procedure Note Mya Chauhan MD - 09/16/2018 EXAMINATION: XR ABD OBSTR SERIES HISTORY: Eval obstruction- Recent SBO, now with N/V, constipation andAbdP COMPARISON: Comparison is made with a study from 09/10/2018. FINDINGS: There is distention of small bowel. Gas is seen in nondistended colonand rectum. Air-fluid levels are seen on the upright view. No free air isseen on the decubitus view. There are no pathologic calcifications. Osseous structures are intact. IMPRESSION: Distended small bowel is concerning for partial small bowel obstruction. Dictated by Franklin Zazueta MD (vice president of communications). This report was approved by Franklin Zazueta on 09/16/2018 1:[address] MYA Smyth M.D. have personally reviewed and interpreted this examination/study. This report was electronically signed by MYA CHAUHAN M.D. on 09/16/2018 1:26 PM . Sherin Vines MD DIAGNOSTIC IM AGING ORDERABLES * (ABNORMAL) LIPASE BLOOD (09/16/2018 9:36 AM HOSPITALIST PHYSICIAN) Only the most recent of2 resultswithin the time period is included. Lipase 104(H) 8 - 78 Units/L 09/16/2018 10:05 AM HOSPITALIST PHYSICIAN [facility] Blood BLOOD SPECIMEN / Unknown Venipuncture / Unknown 09/16/2018 9:36 AM HOSPITALIST PHYSICIAN 09/16/2018 9:46 AM HOSPITALIST PHYSICIAN Sherin Vines MD LAB - METERS SUPERINTENDENT RY ORDERABLES [address] [phone] * AMMONIA (09/16/2018 6:17 AM HOSPITALIST PHYSICIAN) Only the most recent of2 resultswithin the time period is included. Ammonia 35 11 - 64 umol/L 09/16/2018 6:37 AM HOSPITALIST PHYSICIAN [facility] Blood BLOOD SPECIMEN / Unknown Venipuncture / Unknown 09/16/2018 6:17 AM HOSPITALIST PHYSICIAN 09/16/2018 6:27 AM HOSPITALIST PHYSICIAN Nabila Dodd MD LAB - CHEMISTRY ORDKirti REID Performing Organization Address City/[facility]/ZIP Co de Phone Number [address] [phone] * ED PARACENTESIS (09/16/2018 2:20 AM HOSPITALIST PHYSICIAN) Narrative Ayaan Marin MD - 09/16/2018 2:20 AM HOSPITALIST PHYSICIAN Sherin Vines MD 09/08/2018 9:38 PM Paracentesis Date/Time: 09/08/2018 9:38 PM Performed by: SHERIN VINES Authorized by: AYAAN MARIN V Consent: Consent given by: Patient Risks discussed: Bleeding, bowel perforation and pain Pre-procedure details: Procedure purpose: Diagnostic Preparation: Patient was prepped and draped in usual sterile fashion Anesthesia (see MAR for exact dosages): Anesthesia method: Local infiltration Local anesthetic: Lidocaine 1% w/o epi Procedure details: Needle gauge: 18 Ultrasound guidance: yes Puncture site: L lower quadrant Fluid removed amount: 40 mL Fluid appearance: Netta Dressing: Adhesive bandage and 4x4 sterile gauze Post-procedure details: Patient tolerance of procedure: Tolerated well, no immediate complications Ayaan Marin MD PROCEDURE/MINOR SURG ICAL ORDERABLES * (ABNORMAL) BILIRUBIN DIRECT (09/10/2018 9:14 AM HOSPITALIST PHYSICIAN) Pathologist [facility] Bilirubin Conjugated 1.1(H) 0.0 - 0.5 mg/dL 09/10/2018 9:41 AM [facility] Bilirubin Unconjugated 2.3 Unconjugated Bilirubin is a calculated value: Reference ranges have not been established. mg/dL 09/10/2018 9:41 AM [facility] Blood BLOOD SPECIMEN / Unknown Lab Venipuncture / Unknown 09/10/2018 9:14 AM HOSPITALIST PHYSICIAN 09/10/2018 9:25 AM HOSPITALIST PHYSICIAN Ozzie Marquez MD LAB - CHEMISTRY ORDE JEANETTE [address] [phone] * EKG 12-LEAD (09/10/2018 8:39 AM HOSPITALIST PHYSICIAN) Only the most recent of2 resultswithin the time period is included. [facility] Ventricular Rate 93 BPM [facility] MUSE Atrial Rate 93 BPM [facility] MUSE P-R Interval 164 ms [facility] MUSE QRS Duration ms 94 ms [facility] MUSE Q-T Interval ms 368 ms [facility] MUSE QTC Calculation (Bezet) 457 ms [facility] MUSE Calculated P Bixby 38 degrees [facility] MUSE Calculated R Bixby -9 degrees [facility] MUSE Calculated T Bixby 14 degrees [facility] MUSE Interpretation EKG NORMAL SINUS RHYTHM WITH SINUS ARRHYTHMIA NORMAL ECG WHEN COMPARED WITH ECG OF 04-MAR-2017 10:39, SINUS RHYTHM HAS REPLACED ATRIAL FIBRILLATION Confirmed by Katelyn MENA, JOSE ([id number]), field map editor Toñito Sanderson ([id number]) on 10/28/2018 9:19:30 PM [facility] MUSE 09/10/2018 8:39 AM HOSPITALIST PHYSICIAN 10/28/2018 9:19 PM CDT Ozzie Marquez MD ECG ORDERABLES [facility] MUSE * PROTEIN BODY FLUID ([facility] ONLY) (09/08/2018 9:43 PM HOSPITALIST PHYSICIAN) [facility] Protein Fluid 2.7 Not Established For Fluids g/dL 09/08/2018 10:05 PM [facility] Comment: The reference range and other method performance specifications have not been established for this fluid. The test result must be integrated into the clinical context for interpretation. Fluid PERITONEAL FLUID / Unknown Collection / Unknown 09/08/2018 9:43 PM HOSPITALIST PHYSICIAN 09/08/2018 9:46 PM HOSPITALIST PHYSICIAN Sherin Vines MD LAB - BODY FL UID ORDERABLES Performing Organization Address [facility] Co de Phone Number [address] [phone] * LD BODY FLUID ([facility] ONLY) (09/08/2018 9:43 PM HOSPITALIST PHYSICIAN) [facility] LD Fluid 148 Not Established For Fluids Units/L 09/08/2018 10:05 PM [facility] Comment: The reference range and other method performance specifications have not been established for this fluid. The test result must be integrated into the clinical context for interpretation. Fluid PERITONEAL FLUID / Unknown Collection / Unknown 09/08/2018 9:43 PM HOSPITALIST PHYSICIAN 09/08/2018 9:46 PM HOSPITALIST PHYSICIAN Sherin Vines MD LAB - BODY FL UID ORDERABLES Performing Organization Address [facility] de Phone Number [address] [phone] * GLUCOSE BODY FLUID ([facility] ONLY) (09/08/2018 9:43 PM HOSPITALIST PHYSICIAN) [facility] Glucose Fluid 105 Not Established For Fluids mg/dL 09/08/2018 10:05 PM [facility] Comment: The reference range and other method performance specifications have not been established for this fluid. The test result must be integrated into the clinical context for interpretation. Fluid PERITONEAL FLUID / Unknown Collection / Unknown 09/08/2018 9:43 PM HOSPITALIST PHYSICIAN 09/08/2018 9:46 PM HOSPITALIST PHYSICIAN Sherin Vines MD LAB - BODY FL UID ORDERABLES Performing Organization Address [facility] Co de Phone Number [address] [phone] * TROPONIN I (09/08/2018 5:26 PM HOSPITALIST PHYSICIAN) Pathologist [facility] Troponin I 0.014 <0.032 ng/mL 09/08/2018 5:51 PM HOSPITALIST PHYSICIAN [facility] Blood BLOOD SPECIMEN / Unknown Venipuncture / Unknown 09/08/2018 5:26 PM HOSPITALIST PHYSICIAN 09/08/2018 5:26 PM HOSPITALIST PHYSICIAN Sherin Vines MD LAB - METERS SUPERINTENDENT RY ORDERABLES [address] [phone] * HIV-1 HIV-2 ANTIGEN/ANTIBODY (09/08/2018 11:34 AM HOSPITALIST PHYSICIAN) [facility] HIV Antigen/Antibod y 1 & 2 Non-reacti ve Non-react tyson 09/08/2018 12:17 PM [facility] Comment: Neither HIV-1 p24 Antigen nor HIV-1/HIV-2 Antibodies are detected. Blood BLOOD SPECIMEN / Unknown Venipuncture / Unknown 09/08/2018 11:34 AM HOSPITALIST PHYSICIAN 09/08/2018 11:37 AM HOSPITALIST PHYSICIAN Ayaan Marin MD LAB - HEMATOLOGY ORD ERABLES [address] [phone] * HEPATITIS C AB SCREEN RFLX NAAT QUANT (09/08/2018 11:34 AM HOSPITALIST PHYSICIAN) [facility] Hepatitis C Antibody Non-react tyson Non-reac tive 09/08/2018 12:17 PM HOSPITALIST PHYSICIAN [facility] Comment: Hepatitis C Antibody screen indicates no serologic evidence of past or current infection with Hepatitis C Virus. Patients with unexplained liver disease who are immunocompromised or suspected of having acute Hepatitis C infection may benefit from Nucleic Acid Test (CRYSTAL) for Hepatitis C Viral RNA to confirm Hepatitis C status. Blood BLOOD SPECIMEN / Unknown Venipuncture / Unknown 09/08/2018 11:34 AM HOSPITALIST PHYSICIAN 09/08/2018 11:37 AM HOSPITALIST PHYSICIAN Ayaan Marin MD LAB - CHEMISTRY [facility] [address] [phone] * (ABNORMAL) PT-INR (08/18/2018 8:50 AM HOSPITALIST PHYSICIAN) Pathologist [facility] INR 1.2(H) [facility] Comment: Reference Range 0.9-1.1 Moderate-intensity Warfarin Therapy 2.0-3.0 Higher-intensity Warfarin Therapy 3.0-4.0 PT 12.2(H) 9.0 - 11.5 sec [facility] Comment: For more information on this test, go to: http://education.Unii/faq/QWT774 REPORT COMMENT: FASTING:YES AN UPDATE OR CORRECTION HAS BEEN MADE TO NAME Test Performed at: [facility] [address] [place] [address] JOSE BABIN DO,MPH 08/18/2018 8:50 AM HOSPITALIST PHYSICIAN 08/18/2018 8:52 AM HOSPITALIST PHYSICIAN Julio Cesar Leonard MD LAB - COAGULAT ION ORDERABLES Performing Organization Address City/[facility]/ZIP Co de Phone Number [facility] [address] [place] [address] * (ABNORMAL) VITAMIN D 25-HYDROXY D2+D3 BY TANDEM MASS (02/21/2017 8:59 AM CDT) Vitamin D, 25 Hydroxy Total 21(L) 30 - 100 ng/mL [facility] ([facility]) Comment: 25-OHD3 indicates both endogenous production and supplementation. 25-OHD2 is an indicator of exogenous sources, such as diet or supplementation. Therapy is based on measurement of Total 25-OHD, with levels <20 ng/mL indicative of Vitamin D deficiency, while levels between 20 ng/mL and 30 ng/mL suggest insufficiency. Optimal levels are > or = 30 ng/mL. Vitamin D, 25 Hydroxy D3 21 See Below ng/mL [facility] ([facility]) Comment:Reference Range: Not established Vitamin D, 25 Hydroxy D2 <4 See Below ng/mL [facility] ([facility]) Comment: Reference Range: Not established Test Performed at: [facility] [address] [address] ALONDRA YANES MD,AP 02/21/2017 8:59 AM CDT 02/21/2017 8:59 AM CDT Monserrat Diggs MD LAB - CHEMISTRY OR DERABLES Performing Organization Address City/[facility]/ZIP Co de Phone Number [facility] ([facility]) * FOLATE RBC (02/21/2017 8:59 AM CDT) Pathologist [facility] RBC Folate 621 >280 ng/mL RBC [facility] ([facility]) Comment: Test Performed at: [facility] [place] [address] JOSE BABIN DO,MPH 02/21/2017 8:59 AM CDT 02/21/2017 8:59 AM CDT Monserrat Diggs MD LAB - CHEMISTRY OR DERABLES Performing Organization Address [facility] de Phone Number [facility] ([facility]) * (ABNORMAL) PLATELET ESTIMATION (03/14/2015 10:30 AM CDT) [facility] Platelet Estimate DECREASED (A) ADEQUATE [facility] ([facility]) Comment: REPORT COMMENT: IS PATIENT ON HEPARIN, ARGATROBAN OR DABIGATRAN?->N Test Performed at: [place] [address] JOSE BABIN DO,MPH 03/14/2015 10:3 0 AM CDT 03/14/2015 10:32 AM CDT Zachery Morris MD LAB - HEMATOLOGY ORD ERABLES Performing Organization Address [facility] Co de Phone Number [facility] ([facility]) * [id number] BLOOD PHENOTYPING PANEL (03/14/2015 10:30 AM CDT) [facility] Axxvh-2-Dohbhleqz in Phenotype SEE NOTE [facility] ([facility]) Comment: THIS PATIENT'S [id number] PHENOTYPE IS PI*MM. 90% of normal individuals have the MM phenotype, with normal quantitative AAT levels. Many phenotypic patterns have been described, including deficiency states with F, S, Z, or other alleles. As a general estimation, compared to M allele of 100% of normal L-2-Ovojanzksem protein, the S allele produces approximately 60% and the Z allele 20%. For example, an MS phenotype would have about 80% of normal U-9-Tzluwifksdp protein level, a 50% contribution from the M allele and 30% from the S allele. A ZZ phenotype would have about 20% of normal levels. The F allele has normal F-1-Cdqjiaiufuh levels, but the kinetics of elastase inhibition is not as efficient as an M allele product; F alleles should be considered functionally mildly deficient. REPORT COMMENT: IS PATIENT ON HEPARIN, ARGATROBAN OR DABIGATRAN?->N Test Performed at: [facility] [address] [place] [address] NII PIERRE MD PHD Blood specimen (specimen) BLOOD SPECIMEN / Unknown 03/14/2015 10:30 AM CDT 03/14/2015 10:32 AM CDT Zachery Morris MD LAB - CHEMISTRY [facility] ([facility]) * CERULOPLASMIN (03/14/2015 10:30 AM CDT) Ceruloplasmin 31 18 - 36 mg/dL [facility] ([facility]) Comment: REPORT COMMENT: IS PATIENT ON HEPARIN, ARGATROBAN OR DABIGATRAN?->N Test Performed at: [facility] [place] [address] [place] [address] JOSE BABIN DO,MPH Blood specimen (specimen) BLOOD SPECIMEN / Unknown 03/14/2015 10:30 AM CDT 03/14/2015 10:32 AM CDT Zachery Morris MD LAB - CHEMISTRY [facility] Performing Organization Address City/[facility] de Phone Number [facility] ([facility]) * HEPATITIS C ANTIBODY (03/14/2015 10:30 AM CDT) Hepatitis C Antibody NON-REACTI VE NON-REACT TYSON [facility] ([facility]) Signal/Cutoff 0.04 <1.00 [facility] ([facility]) Comment: Test Performed at: [facility] [address] [facility] [place] [address] JOSE BABIN DO,MPH Blood specimen (specimen) BLOOD SPECIMEN / Unknown 03/14/2015 10:30 AM CDT 03/14/2015 10:32 AM CDT Zachery Morris MD LAB - CHEMISTRY [facility] Performing Organization Address [facility] Phone Number [facility] ([facility]) * FERRITIN (03/14/2015 10:30 AM CDT) Pathologist [facility] Ferritin 67 20 - 380 ng/mL [facility] ([facility]) Comment: REPORT COMMENT: IS PATIENT ON HEPARIN, ARGATROBAN OR DABIGATRAN?->N Test Performed at: [facility] [employer] [facility] [place] [address] JOSE BABIN DO,MPH Blood specimen (specimen) BLOOD SPECIMEN / Unknown 03/14/2015 10:30 AM CDT 03/14/2015 10:32 AM CDT Zachery Morris MD LAB - CHEMISTRY [facility] Performing Organization Address [facility] Phone Number [facility] ([facility]) * CT ABDOMEN MULTI PHASE W CONT (01/24/2015 12:55 PM CDT) Anatomical Region Laterality Modality Other Impressions 01/27/2015 4:29 PM CDT Impression: 1. Hepatic cirrhosis and sequela of portal hypertension including moderate sized paraesophageal varices. 2. No suspicious arterial enhancing liver lesion identified. 3. Circumferential gallbladder wall thickening may be secondary to liver disease. Correlation for signs of cholecystitis is recommended. Report dictated by Anthony Aguillon M.D. (resident). I, Dr. BLADIMIR ORTIZ M.D. have personally reviewed and interpreted this examination/study. This report was electronically signed by BLADIMIR ORTIZ M.D. on 01/27/2015 4:29 PM . Narrative 01/27/2015 4:29 PM CDT Computed tomography (CT) of the abdomen three-phase liver protocol with contrast Comparison: None History: Cirrhosis Technique: Multiplanar CT images of the abdomen were obtained following the administration of 150 mL Omnipaque 350 intravenous contrast according to three- phase liver CT protocol. Findings: The lung bases are clear. The visualized portion of the heart and mediastinum are unremarkable. Hepatic surface nodularity is consistent with chronic hepatic disease. No discrete liver lesion is present. No intrahepatic or extrahepatic biliary ductal dilatation is seen. Accessory left hepatic artery is present. The portal vein is enlarged but patent. Moderate sized paraesophageal and smaller submucosal esophageal varices are present. Trace perihepatic and perisplenic ascites is present. Subcentimeter rosita hepatis lymph nodes are present. Circumferential gallbladder wall thickening may be secondary to liver disease. The spleen is enlarged, measuring 15.5 cm in craniocaudal dimension. The pancreas is normal. The kidneys enhance symmetrically and demonstrate no evidence of renal stone or hydronephrosis. The adrenal glands are normal. There is no free intraperitoneal air. The visualized loops of bowel are normal in caliber without evidence of obstruction. An umbilical hernia contains ascitic fluid. The remaining vascular structures are patent. No acute osseous abnormality is seen. Multilevel degenerative changes are present. Procedure Note Bladimir Ortiz MD - 10/26/2017 Computed tomography (CT) of the abdomen three-phase liver protocol withcontrast Comparison: None History: Cirrhosis Technique: Multiplanar CT images of the abdomen were obtained followingthe administration of 150 mL Omnipaque 350 intravenous contrast accordingto three- phase liver CT protocol. Findings: The lung bases are clear. The visualized portion of the heart andmediastinum are unremarkable. Hepatic surface nodularity is consistent with chronic hepatic disease. Nodiscrete liver lesion is present. No intrahepatic or extrahepatic biliary ductal dilatation is seen.Accessory left hepatic artery is present. The portal vein is enlarged butpatent. Moderate sized paraesophageal and smaller submucosal esophagealvarices are present. Trace perihepatic and perisplenic ascites is present. Subcentimeter rosita hepatis lymphnodes are present. Circumferential gallbladder wall thickening may be secondary to liverdisease. The spleen is enlarged, measuring 15.5 cm in craniocaudaldimension. The pancreas is normal. The kidneys enhance symmetrically anddemonstrate no evidence of renal stone or hydronephrosis. The adrenal glands are normal. There is no free intraperitoneal air. The visualized loops of bowel arenormal in caliber without evidence of obstruction. An umbilical herniacontains ascitic fluid. The remaining vascular structures are patent. No acute osseous abnormality is seen. Multilevel degenerative changes arepresent. IMPRESSION Impression: 1. Hepatic cirrhosis and sequela of portal hypertension including moderatesized paraesophageal varices. 2. No suspicious arterial enhancing liver lesion identified. 3. Circumferential gallbladder wall thickening may be secondary to liverdisease. Correlation for signs of cholecystitis is recommended. Report dictated by Anthony Aguillon M.D. (resident). I, Dr. BLADIMIR ORTIZ M.D. have personally reviewed and interpreted thisexamination/study. This report was electronically signed by BLADIMIR ORTIZ M.D. on 01/27/20154:29 PM . Zachery Morris MD CT ORDERABLES * CREATININE BLOOD - POCT (IP) [facility] (01/24/2015 12:40 PM CDT) Creatinine POCT 0.66 0.3 - 1.3 mg/dL [facility] eGFR POCT 60 60 ml/min [facility] 01/24/2015 12:4 0 PM CDT Zachery Morris MD LAB - POINT OF CARE ORDERABLES [facility] Care Teams Financial Aid Relationship Specialty Start Date End Date Barron Adan MD [address] [place] [address] PCP - General Internal Medicine 08/31/24 Jt Collins, LEAD JAVA PROGRAMMER-CHIEF [employer] [address] [place], [place] [id number] Nurse Practitioner 06/03/24
[2024-10-10 15:19] VITALS: BP 117/89; PULSE 69; RESP 18; TEMP 36.4; O2SAT 99
--- OUTSIDE RECORDS SUMMARY | 2024-10-10 17:54 | XMS_ITS | Referral Summary ---
Author Organization [facility] Address [address] [facility] [place] [address] Care Team Providers Care Cane Weigher Helper Name Role Phone Jt Collins APRN-[facility] Unavailable [phone] Barron Adan MD Primary Care Provider [phone] Source Comments [facility],non-owned Affiliates and Associated Physician Practices is amultiple site organization consisting of ambulatory clinics and hospital sitesin [place], [place], [place] and [place]. This disclosure is being madepursuant to the Care Everywhere program and may not contain all information available regarding this patient. Last updated 18.[facility] Encounters Date Type Department Care Team Description 09/30/2024 9:30 AM AUTOMOTIVE SALES EXECUTIVE - 09/30/2024 11:59 PM [facility] Hospital Encounter [facility] OT [address] [place] [address] Florian Barlow MD Pisciotto, Erica D, OT Discharge Disposition: Home or Self Care 09/16/2024 9:15 AM AUTOMOTIVE SALES EXECUTIVE - 09/16/2024 11:59 PM [facility] Hospital Encounter [facility] OT [address] [place] [address] Florian Barlow MD Pisciotto, Erica D, OT Discharge Disposition: Home or Self Care 08/31/2024 4:00 PM AUTOMOTIVE SALES EXECUTIVE - 08/31/2024 11:59 PM AUTOMOTIVE SALES EXECUTIVE Hospital Encounter [facility] OT [address] [place] [phone] Florian Barlow MD Pisciotto, Erica D, OT Discharge Disposition: Home or Self Care 08/31/2024 2:17 PM AUTOMOTIVE SALES EXECUTIVE - 08/31/2024 3:59 PM AUTOMOTIVE SALES EXECUTIVE Hospital Encounter [facility] DIAGNOSTIC RAD OP [address] [place] [phone] Florian Barlow MD Discharge Disposition: Home or Self Care 08/31/2024 Travel 08/31/2024 Orders Only [facility] - General Surgery [address] [place] [phone] Florian Barlow MD Laceration of left index finger without foreign body without damage to nail, subsequent encounter ; Left hand pain 08/31/2024 2:00 PM AUTOMOTIVE SALES EXECUTIVE Office Visit [facility] - Plastic Surgery [address] [place] [phone] Devon Payne MD Mailey, Brian A, MD Closed dislocation finger, proximal interphalangeal joint, traumatic (Primary Dx); Laceration of left index finger without foreign body without damage to nail, subsequent encounter 08/21/2024 Telephone [facility] - Internal Medicine [address] [facility] [place] [address] Mariel Alcocer Referral Consult Request 08/20/2024 Patient Outreach [facility] - Care Coordination [address] [place] [address] Melba Monsalve, GUM MACHINE FILLER [facility] Follow-up 08/20/2024 Patient Outreach [facility] - Care Coordination [address] [place] [address] Rama London, GUM MACHINE FILLER UC Follow-up 08/20/2024 Telephone [facility] - Internal Medicine [address] [phone] Devon Payne MD Appointment; Reminder Call 08/19/2024 Travel 08/19/2024 1:36 PM AUTOMOTIVE SALES EXECUTIVE - 08/19/2024 6:04 PM [facility] Emergency [facility] EMERGENCY DEPARTMENT [address] [place] [address] Laceration of left index finger without foreign [...] 90 tablet 3 03/23/2024 Active HYDROcodone-acetami nophen ([place]) 5-325 MG tabletIndications:P ain of left hand [...] the GI and hepatology clinic here at [facility]. He was recently at a local ER [...] Marker 3.250 PSA Free <0.10 03/14/2015 10:30 [id number] 162 10/22/2018 06:01 DELPHINE Negative 03/14/2015 10:30 [...] It is the impression of this social work program coordinator that Rhett Garner has several positive factors for Liver transplant candidacy including knowledge of illness, sufficient insurance coverage, stable financial situation for post transplant needs, no concerns regarding current substance abuse, adequate support system, and appropriate discharge plan. Plan: link trainer maintenance worker to provide supportive services as needed. Patient appears to be a reasonable candidate for transplant from a psychosocial perspective, pending: -Random ETOH/nicotine/drug screens until time of transplant. -Patient must complete 8 weeks of documented relapse prevention with monthly attendance until time of transplant. Psychiatric Consult Recommended: No Transplant Dental Assistant: Hilary Yoder LMSW PT: (11/04/18) Assessment: Pt [...] has stabilized. Will f/u with pt per [place] Nutrition Frailty Free score of 2. Does [...] Comments Blood Pressure 104/67 08/31/2024 2:36 PM AUTOMOTIVE SALES EXECUTIVE Pulse 87 08/31/2024 2:36 PM AUTOMOTIVE SALES EXECUTIVE Temperature 36.2 C (97.2 F) 08/31/2024 2:36 PM AUTOMOTIVE SALES EXECUTIVE Respiratory Rate 18 08/19/2024 5:58 PM AUTOMOTIVE SALES EXECUTIVE Oxygen Saturation 96% 08/31/2024 2:36 PM AUTOMOTIVE SALES EXECUTIVE Inhaled Oxygen Concentration - - Weight 118.9 kg (262 lb 3.2 oz) 08/31/2024 2:36 PM AUTOMOTIVE SALES EXECUTIVE Height 188 cm (6' 2 ) 08/31/2024 2:36 PM AUTOMOTIVE SALES EXECUTIVE Body Mass Index 33.66 08/31/2024 2:36 PM AUTOMOTIVE SALES EXECUTIVE Functional Status Functional Status Response Date of [...] Info) Description 10/15/2024 9:30 AM CDT Appointment [facility] OT [address] [place] [address] Estee Jordan, OT 12/07/2024 11:00 AM CDT Appointment [facility] [address] [place] [address] Deloris Ferris, GLASS CUT OFF TENDER-STATOR TESTER [address] [facility] [address] [place] [address] 12/07/2024 12:00 PM CDT Appointment [facility] LAB OP DRAW STATION [address] [place] [address] Deloris Ferris, GLASS CUT OFF TENDER-STATOR TESTER [address] [facility] [address] [place] [address] 12/07/2024 2:00 PM CDT Office Visit [facility] - GI [address] [place] [phone] Deloris Ferris, GLASS CUT OFF TENDER-STATOR TESTER [address] [place] [address] [address] [place] [address] 12/15/2024 3:00 PM CDT Office Visit [facility] - Internal Medicine [address] [place] [address] [address] [place] [phone] Devon Payne MD [address] [place] [address] [place] [phone] 01/21/2025 10:00 AM CDT Office Visit [facility] - Nephrology [address] [place] [phone] Teofilo Weinstein MD [address] [place] [address] [address] DIV OF NEPHROLOGY [place], [place] [phone] Goals Goal Patient Goal Type Associated Problems [...] 3VW OR MORE Routine 08/31/2024 2:25 PM AUTOMOTIVE SALES EXECUTIVE Laceration of left index finger without foreign body without damage to nail, subsequent encounter Left hand pain CBC W AUTO DIFFERENTIAL STAT 08/19/2024 4:28 PM AUTOMOTIVE SALES EXECUTIVE XR HAND LEFT 3VW OR MORE STAT 08/19/2024 8:19 AM AUTOMOTIVE SALES EXECUTIVE Pain of left hand COMPREHENSIVE METABOLIC PANEL Routine 06/08/2024 1:33 PM AUTOMOTIVE SALES EXECUTIVE Alcoholic cirrhosis of liver with ascites (HCC) LIPID PROFILE Routine 09/12/2023 2:34 PM AUTOMOTIVE SALES EXECUTIVE Alcoholic cirrhosis, unspecified whether ascites present (HCC) Special screening for malignant neoplasm of prostate Fatigue, unspecified type Hyperglycemia ENDOSCOPY, COLON, DIAGNOSTIC Routine 11/28/2018 1:53 PM CDT HEPATITIS C AB SCREEN RFLX NAAT QUANT STAT 09/08/2018 11:34 AM AUTOMOTIVE SALES EXECUTIVE HIV-1 HIV-2 ANTIGEN/ANTIBODY STAT 09/08/2018 11:34 AM AUTOMOTIVE SALES EXECUTIVE from Last 3 Months or Most Recently Relevant to Health Maintenance Results * XR Hand Left 3Vw or More (08/31/2024 2:25 PM AUTOMOTIVE SALES EXECUTIVE) Only the most recent of2 resultswithin the time period is included. Anatomical Region Laterality Modality Wrist / Hand Digital Radiogra phy 09/01/2024 2:32 PM AUTOMOTIVE SALES EXECUTIVE Impressions 09/01/2024 2:35 PM AUTOMOTIVE SALES EXECUTIVE IMPRESSION: Satisfactory interval reduction of the dislocation at the level of the second PIP joint with the second proximal phalanx and middle phalanx appearing anatomically aligned on the present study. No obvious abnormal soft tissue gas seen on the present study. > Interpreting Provider: Dino Ozuna MD on 09/01/2024 2:35 PM Narrative 09/01/2024 2:35 PM AUTOMOTIVE SALES EXECUTIVE PROCEDURE: XR HAND LEFT 3VW OR MORE [...] CBC W AUTO DIFFERENTIAL (08/19/2024 4:28 PM AUTOMOTIVE SALES EXECUTIVE) WBC 3.2(L) 4.0 - 10.7 x10E9/L 08/19/2024 5:13 PM AUTOMOTIVE SALES EXECUTIVE [facility] RBC Count 3.88(L) 4.30 - 5.80 x10E12/L 08/19/2024 5:13 PM AUTOMOTIVE SALES EXECUTIVE [facility] Hemoglobin 11.5(L) 13.3 - 17.5 g/dL 08/19/2024 5:13 PM [facility] Hematocrit 35.6(L) 38.7 - 51.1 % 08/19/2024 5:13 PM [facility] MCV 91.8 80.0 - 98.0 fL 08/19/2024 5:13 PM [facility] MCH 29.6 26.7 - 33.6 pg 08/19/2024 5:13 PM [facility] MCHC 32.3 31.7 - 36.3 g/dL 08/19/2024 5:13 PM [facility] RDW-CV 16.6(H) 11.3 - 14.8 % 08/19/2024 5:13 PM [facility] Platelet Count 41(L) 150 - 420 x10E9/L 08/19/2024 5:13 PM [facility] MPV 12.2(H) 7.8 - 11.4 fL 08/19/2024 5:13 PM [facility] Neutrophil % 56.5 41.0 - 74.0 % 08/19/2024 5:13 PM [facility] Lymphocyte % 25.9 17.0 - 47.0 % 08/19/2024 5:13 PM [facility] Monocyte % 13.2(H) 3.0 - 11.0 % 08/19/2024 5:13 PM [facility] Eosinophil % 2.8 0.0 - 7.0 % 08/19/2024 5:13 PM [facility] Basophil % 1.3 0.0 - 1.6 % 08/19/2024 5:13 PM [facility] Immature Granulocytes % 0.3 0.0 - 1.0 % 08/19/2024 5:13 PM [facility] Neutrophil Absolute 1.79 1.60 - 7.50 x10E9/L 08/19/2024 5:13 PM [facility] Lymphocyte Absolute 0.82(L) 1.00 - 4.40 x10E9/L 08/19/2024 5:13 PM [facility] Monocyte Absolute 0.42 0.15 - 1.00 x10E9/L 08/19/2024 5:13 PM [facility] Eosinophil Absolute 0.09 0.00 - 0.60 x10E9/L 08/19/2024 5:13 PM [facility] Basophil Absolute 0.04 0.00 - 0.13 x10E9/L 08/19/2024 5:13 PM [facility] Blood BLOOD SPECIMEN / Unknown Venipuncture / Unknown 08/19/2024 4:28 PM AUTOMOTIVE SALES EXECUTIVE 08/19/2024 4:38 PM AUTOMOTIVE SALES EXECUTIVE Ashly Joy PA-C LAB - HEMATOL OGY ORDERABLES [facility] [address] [place] [address], [facility] [phone] * (ABNORMAL) COMPREHENSIVE METABOLIC PANEL (06/08/2024 1:33 PM AUTOMOTIVE SALES EXECUTIVE) BUN 23 7 - 26 mg/dL 06/08/2024 2:25 PM [facility] Creatinine 1.42(H) 0.71 - 1.16 mg/dL 06/08/2024 2:25 PM [facility] Sodium 138 136 - 145 mmol/L 06/08/2024 2:25 PM [facility] Potassium 4.3 3.5 - 4.5 mmol/L 06/08/2024 2:25 PM [facility] Chloride 106 98 - 107 mmol/L 06/08/2024 2:25 PM [facility] CO2 24 22 - 29 mmol/L 06/08/2024 2:25 PM [facility] Glucose 96 70 - 99 mg/dL 06/08/2024 2:25 PM [facility] Calcium 9.5 8.4 - 10.2 mg/dL 06/08/2024 2:25 PM [facility] Protein Total 7.6 6.0 - 8.3 g/dL 06/08/2024 2:25 PM [facility] Albumin 3.2(L) 3.4 - 5.0 g/dL 06/08/2024 2:25 PM [facility] Bilirubin Total 2.0(H) 0.2 - 1.2 mg/dL 06/08/2024 2:25 PM AUTOMOTIVE SALES EXECUTIVE [facility] Alkaline Phosphatase 106 40 - 150 U/L 06/08/2024 2:25 PM [facility] ALT 25 5 - 55 U/L 06/08/2024 2:25 PM [facility] AST 42(H) 5 - 34 U/L 06/08/2024 2:25 PM [facility] Anion Gap 8 6 - 16 06/08/2024 2:25 PM [facility] BUN/Creatinine Ratio 16 7 - 23 06/08/2024 2:25 PM [facility] Osmolality Calculated 290 275 - 295 mOsm/kg 06/08/2024 2:25 PM [facility] Albumin/Globulin Ratio 0.7(L) 1.1 - 2.3 06/08/2024 2:25 PM [facility] eGFR by CKD-EPI 56(L) >=90 mL/min/1.7 3 m2 06/08/2024 2:25 PM [facility] Blood BLOOD SPECIMEN / Unknown Lab Venipuncture / Unknown 06/08/2024 1:33 PM AUTOMOTIVE SALES EXECUTIVE 06/08/2024 1:49 PM [facility] Deloris Ferris GLASS CUT OFF TENDER-STATOR TESTER LAB - CHEMI STRY ORDERABLES [facility] [address] [place] [phone], [facility] [phone] * LIPID PROFILE (09/12/2023 2:34 PM AUTOMOTIVE SALES EXECUTIVE) Cholesterol Total 160 <200 mg/dL 09/12/2023 3:19 PM [facility] HDL 59 >40 mg/dL 09/12/2023 3:19 PM [facility] Comment: ATP III Classification of HDL Cholesterol: <40 mg/dL: Considered a major risk factor. >60 mg/dL: Considered a negative risk factor. LDL Calculated 89 <100 mg/dL 09/12/2023 3:19 PM [facility] Comment: ATP III Classification of LDL Cholesterol: <100 mg/dL: Optimal 100 - 129 mg/dL: Near Optimal/Above Optimal 130 - 159 mg/dL: Borderline High 160 - 189 mg/dL: High >190 mg/dL: Very High Triglycerides 60 <150 mg/dL 09/12/2023 3:19 PM AUTOMOTIVE SALES EXECUTIVE [facility] Comment: ATP III Classification of Triglycerides: <150 mg/dL: Normal 150 - 199 mg/dL: Borderline High 200 - 400 mg/dL: High >500 mg/dL: Very High Blood BLOOD SPECIMEN / Unknown Lab Venipuncture / Unknown 09/12/2023 2:34 PM AUTOMOTIVE SALES EXECUTIVE 09/12/2023 2:50 PM AUTOMOTIVE SALES EXECUTIVE Perfecto Contreras PA-C LAB - LOG SORTER RY ORDERABLES [facility] [address] [place] [address], [facility] [phone] * ENDOSCOPY, COLON, DIAGNOSTIC (11/28/2018 1:53 PM [...] and oxygen saturations were monitored continuously. The CF-HA593M was introduced through the anus and advanced [...] malignant neoplasm of colon CPT copyright 2016 [employer]. All rights reserved. The codes documented in this report are preliminary and upon hydraulic press operator review may be revised to meet current compliance requirements. Julio Cesar Leonard, 11/28/2018 2:31:42 PM Note Initiated On: 11/28/2018 1:53 PM Number of Addenda: 0 [facility] [address] [place] [address] [facility] 11/28/2018 1:53 PM CDT Julio Cesar Leonard MD GI PROCEDURE O RDERABLES [facility] * HIV-1 HIV-2 ANTIGEN/ANTIBODY (09/08/2018 11:34 AM AUTOMOTIVE SALES EXECUTIVE) HIV Antigen/Antibod y 1 & 2 Non-reacti ve Non-react ttius 09/08/2018 12:17 PM AUTOMOTIVE SALES EXECUTIVE [facility] Comment: Neither HIV-1 p24 Antigen nor HIV-1/HIV-2 Antibodies are detected. Blood BLOOD SPECIMEN / Unknown Venipuncture / Unknown 09/08/2018 11:34 AM AUTOMOTIVE SALES EXECUTIVE 09/08/2018 11:37 AM AUTOMOTIVE SALES EXECUTIVE Maureen Wilcox MD LAB - HEMATOLOGY [facility] [address] [phone] * HEPATITIS C AB SCREEN RFLX NAAT QUANT (09/08/2018 11:34 AM AUTOMOTIVE SALES EXECUTIVE) Hepatitis C Antibody Non-react titus Non-reac tive 09/08/2018 12:17 PM AUTOMOTIVE SALES EXECUTIVE [facility] Comment: Hepatitis C Antibody screen indicates no serologic evidence of past or current infection with Hepatitis C Virus. Patients with unexplained liver disease who are immunocompromised or suspected of having acute Hepatitis C infection may benefit from Nucleic Acid Test (CRYSTAL) for Hepatitis C Viral RNA to confirm Hepatitis C status. Blood BLOOD SPECIMEN / Unknown Venipuncture / Unknown 09/08/2018 11:34 AM AUTOMOTIVE SALES EXECUTIVE 09/08/2018 11:37 AM AUTOMOTIVE SALES EXECUTIVE Maureen Wilcox MD LAB - CHEMISTRY [facility] [address] [phone] from Last 3 Months or Most Recently [...] 4:13 AM 09/13/2018 7:07 PM Care Teams Cane Weigher Helper Relationship Specialty Start Date End Date Barron Adan MD [address] [place] [address] PCP - General Internal Medicine 08/31/24 Jt Collins, GLASS CUT OFF TENDER-STATOR TESTER [address] [place] [address] Nurse Practitioner 06/03/24
--- OUTSIDE RECORDS SUMMARY | 2024-10-10 17:54 | XMS_ITS | Patient Health Summary ---
Author Organization [facility] Address [address] [place] [address] Care Team Providers Care Filter Tank Operator Name Role Phone Jt Collins APRN-CARE CONSULTANT Unavailable [phone] Barron Adan MD Primary Care Provider [phone] Note from [facility],non-owned Affiliates and Associated Physician Practices is amultiple site organization consisting of ambulatory clinics and hospital sitesin [place], [place], [place] and [place]. This disclosure is being madepursuant to the Care Everywhere program and may not contain all information available regarding this patient. Last updated 18.[facility] Allergies No known active allergies Medications * [...] DAY 3 refills by 03/23/2025 * HYDROcodone-acetaminophen ([place]) 5-325 MG tablet(Started 08/19/2024) Take 1 (one) [...] Comments Blood Pressure 104/67 08/31/2024 2:36 PM MICROBIOLOGY DIRECTOR Pulse 87 08/31/2024 2:36 PM MICROBIOLOGY DIRECTOR Temperature 36.2 C (97.2 F) 08/31/2024 2:36 PM MICROBIOLOGY DIRECTOR Respiratory Rate 18 08/19/2024 5:58 PM MICROBIOLOGY DIRECTOR Oxygen Saturation 96% 08/31/2024 2:36 PM MICROBIOLOGY DIRECTOR Inhaled Oxygen Concentration - - Weight 118.9 kg (262 lb 3.2 oz) 08/31/2024 2:36 PM MICROBIOLOGY DIRECTOR Height 188 cm (6' 2 ) 08/31/2024 2:36 PM MICROBIOLOGY DIRECTOR Body Mass Index 33.66 08/31/2024 2:36 PM MICROBIOLOGY DIRECTOR Procedures * XR HAND LEFT 3VW OR [...] cirrhosis of liver with ascites (HCC) * [facility] ED EGD FLEX TRANSORAL DX(Performed 11/25/2020) Performed [...] (HCC), Secondary esophageal varices withoutbleeding (HCC) * [facility] ED EGD FLEX TRANSORAL DX(Performed 10/07/2020) Performed [...] cirrhosis, unspecified whether ascites present (HCC) * [id number]-2-EKGUOENILDU BLOOD(Performed 12/01/2018) Performed for Pre-transplant evaluation for [...] * CBC W AUTO DIFFERENTIAL(Performed 02/21/2017) * [id number] BLOOD PHENOTYPING PANEL(Performed 03/14/2015) * MITOCHONDRIAL ANTIBODY SCREEN(Performed 03/14/2015) * [id number]-9-[id number] BLOOD(Performed 03/14/2015) * CERULOPLASMIN(Performed 03/14/2015) * HEPATITIS [...] Left 3Vw or More (08/31/2024 2:25 PM MICROBIOLOGY DIRECTOR) Only the most recent of2 resultswithin the time period is included. Anatomical Region Laterality Modality Wrist / Hand Digital Radiogra phy 09/01/2024 2:32 PM MICROBIOLOGY DIRECTOR Impressions 09/01/2024 2:35 PM MICROBIOLOGY DIRECTOR IMPRESSION: Satisfactory interval reduction of the dislocation at the level of the second PIP joint with the second proximal phalanx and middle phalanx appearing anatomically aligned on the present study. No obvious abnormal soft tissue gas seen on the present study. > Interpreting Provider: Bladimir Ozuna MD on 09/01/2024 2:35 PM Narrative 09/01/2024 2:35 PM MICROBIOLOGY DIRECTOR PROCEDURE: XR HAND LEFT 3VW OR MORE [...] CBC W AUTO DIFFERENTIAL (08/19/2024 4:28 PM MICROBIOLOGY DIRECTOR) Only the most recent of38 resultswithin the time period is included. WBC 3.2(L) 4.0 - 10.7 x10E9/L 08/19/2024 5:13 PM MICROBIOLOGY DIRECTOR [facility] RBC Count 3.88(L) 4.30 - 5.80 x10E12/L 08/19/2024 5:13 PM MICROBIOLOGY DIRECTOR [facility] Hemoglobin 11.5(L) 13.3 - 17.5 g/dL 08/19/2024 5:[address] [facility] Hematocrit 35.6(L) 38.7 - 51.1 % 08/19/2024 5:13 PM [facility] MCV 91.8 80.0 - 98.0 fL 08/19/2024 5:13 PM [facility] MCH 29.6 26.7 - 33.6 pg 08/19/2024 5:13 PM [facility] MCHC 32.3 31.7 - 36.3 g/dL 08/19/2024 5:13 PM [facility] RDW-CV 16.6(H) 11.3 - 14.8 % 08/19/2024 5:13 PM [facility] Platelet Count 41(L) 150 - 420 x10E9/L 08/19/2024 5:13 PM [facility] MPV 12.2(H) 7.8 - 11.4 fL 08/19/2024 5:13 PM [facility] Neutrophil % 56.5 41.0 - 74.0 % 08/19/2024 5:13 PM [facility] Lymphocyte % 25.9 17.0 - 47.0 % 08/19/2024 5:13 PM [facility] Monocyte % 13.2(H) 3.0 - 11.0 % 08/19/2024 5:13 PM [facility] Eosinophil % 2.8 0.0 - 7.0 % 08/19/2024 5:13 PM [facility] Basophil % 1.3 0.0 - 1.6 % 08/19/2024 5:13 PM [facility] Immature Granulocytes % 0.3 0.0 - 1.0 % 08/19/2024 5:13 PM [facility] Neutrophil Absolute 1.79 1.60 - 7.50 x10E9/L 08/19/2024 5:13 PM [facility] Lymphocyte Absolute 0.82(L) 1.00 - 4.40 x10E9/L 08/19/2024 5:13 PM [facility] Monocyte Absolute 0.42 0.15 - 1.00 x10E9/L 08/19/2024 5:13 PM [facility] Eosinophil Absolute 0.09 0.00 - 0.60 x10E9/L 08/19/2024 5:13 PM [facility] Basophil Absolute 0.04 0.00 - 0.13 x10E9/L 08/19/2024 5:13 PM [facility] Blood BLOOD SPECIMEN / Unknown Venipuncture / Unknown 08/19/2024 4:28 PM MICROBIOLOGY DIRECTOR 08/19/2024 4:38 PM MICROBIOLOGY DIRECTOR Ashly Joy PA-C LAB - HEMATOL OGY ORDERABLES [facility] [address] [place] [address], [facility] [phone] * (ABNORMAL) PT-INR [facility] (06/08/2024 1:33 PM MICROBIOLOGY DIRECTOR) Only the most recent of34 resultswithin the time period is included. PT 15.1(H) 12.1 - 14.8 Seconds 06/08/2024 2:22 PM [facility] INR 1.2 See Comment 06/08/2024 2:22 PM [facility] Comment:The suggested therap eutic range for standard coumadin (warfarin) therapy is an INR of 2.0-3.0. For high-risk patients (Mechanical Mitral Valve Prosthesis, etc.), the suggested prophylactic therapeutic range is an INR of 2.5-3.5. Blood BLOOD SPECIMEN / Unknown Lab Venipuncture / Unknown 06/08/2024 1:33 PM MICROBIOLOGY DIRECTOR 06/08/2024 1:40 PM MICROBIOLOGY DIRECTOR Deloris Ferris PHOTOGRAPHIC EDITOR-CARE CONSULTANT LAB - COAGU LATION ORDERABLES [facility] [address] [place] [address], [place] [phone] * ALPHA FETOPROTEIN BLOOD TUMOR MARKER (06/08/2024 1:33 PM MICROBIOLOGY DIRECTOR) Only the most recent of11 resultswithin the time period is included. Alpha-Fetoprote in Tumor Marker 3.7 <=8.3 ng/mL 06/08/2024 2:44 PM [facility] Comment: AFP values will vary depending on testing procedure used. Results are not comparable across different methods. AFP values obtained by [facility] using an Conner Alinity Immunoassay. Blood BLOOD SPECIMEN / Unknown Lab Venipuncture / Unknown 06/08/2024 1:33 PM MICROBIOLOGY DIRECTOR 06/08/2024 1:49 PM MICROBIOLOGY DIRECTOR Deloris Sofya Ferris PHOTOGRAPHIC EDITOR-CARE CONSULTANT LAB - CHEMI STRY ORDERABLES [facility] [address] [place] [address], [facility] [phone] * (ABNORMAL) COMPREHENSIVE METABOLIC PANEL (06/08/2024 1:33 PM MICROBIOLOGY DIRECTOR) Only the most recent of31 resultswithin the time period is included. BUN 23 7 - 26 mg/dL 06/08/2024 2:25 PM [facility] Creatinine 1.42(H) 0.71 - 1.16 mg/dL 06/08/2024 2:25 PM [facility] Sodium 138 136 - 145 mmol/L 06/08/2024 2:25 PM [facility] Potassium 4.3 3.5 - 4.5 mmol/L 06/08/2024 2:25 PM [facility] Chloride 106 98 - 107 mmol/L 06/08/2024 2:25 PM [facility] CO2 24 22 - 29 mmol/L 06/08/2024 2:25 PM [facility] Glucose 96 70 - 99 mg/dL 06/08/2024 2:25 PM [facility] Calcium 9.5 8.4 - 10.2 mg/dL 06/08/2024 2:25 PM [facility] Protein Total 7.6 6.0 - 8.3 g/dL 06/08/2024 2:25 PM [facility] Albumin 3.2(L) 3.4 - 5.0 g/dL 06/08/2024 2:25 PM [facility] Bilirubin Total 2.0(H) 0.2 - 1.2 mg/dL 06/08/2024 2:25 PM [facility] Alkaline Phosphatase 106 40 - 150 U/L 06/08/2024 2:25 PM [facility] ALT 25 5 - 55 U/L 06/08/2024 2:25 PM [facility] AST 42(H) 5 - 34 U/L 06/08/2024 2:25 PM [facility] Anion Gap 8 6 - 16 06/08/2024 2:25 PM [facility] BUN/Creatinine Ratio 16 7 - 23 06/08/2024 2:25 PM [facility] Osmolality Calculated 290 275 - 295 mOsm/kg 06/08/2024 2:25 PM [facility] Albumin/Globulin Ratio 0.7(L) 1.1 - 2.3 06/08/2024 2:25 PM [facility] eGFR by CKD-EPI 56(L) >=90 mL/min/1.7 3 m2 06/08/2024 2:25 PM [facility] Blood BLOOD SPECIMEN / Unknown Lab Venipuncture / Unknown 06/08/2024 1:33 PM MICROBIOLOGY DIRECTOR 06/08/2024 1:49 PM MICROBIOLOGY DIRECTOR Deloris Ferris PHOTOGRAPHIC EDITOR-CARE CONSULTANT LAB - CHEMI STRY ORDERABLES [facility] [address] [place] [address], [facility] [phone] * US ABDOMEN LIMITED (06/08/2024 12:22 PM MICROBIOLOGY DIRECTOR) Only the most recent of11 resultswithin the time period is included. Anatomical Region Laterality Modality Abdomen Ultrasound 06/08/2024 2:24 PM MICROBIOLOGY DIRECTOR Impressions 06/08/2024 5:06 PM MICROBIOLOGY DIRECTOR IMPRESSION: Liver Visualization Score A: No or minimal limitations. US-1 Negative. Repeat surveillance US in 6 months. Patent hepatic vasculature. 1.Hepatic cirrhosis with sequela of portal hypertension including splenomegaly and ascites. No discrete hepatic lesion. 2.Cholelithiasis without evidence of acute cholecystitis. Report drafted by Shamika Dexter MD > Dictated by Shamika Dexter MD (Dining Room Coordinator) 06/08/2024 2:24 Freddy REYES MD have personally reviewed and interpreted this examination/study. > Interpreting Provider: Freddy Ramesh MD on 06/08/2024 5:06 PM Narrative 06/08/2024 5:06 PM MICROBIOLOGY DIRECTOR PROCEDURE: US ABDOMEN LIMITED, DATE/TIME OF EXAM: 06/08/2024 12:31 PM, LOCATION [facility] INDICATION: K70.31: Alcoholic cirrhosis of liver with [...] No discrete mass identified. Procedure Note Romelia Ramseh MD - 06/08/2024 PROCEDURE: US ABDOMEN LIMITED, DATE/TIME OF EXAM: 06/08/2024 12:31 PM, LOCATION [facility] INDICATION: K70.31: Alcoholic cirrhosis of liver with [...] by Shamika Dexter MD > Dictated by Shamkia Dexter MD (Dining Room Coordinator) 06/08/2024 2:24 PM IFreddy MD have personally reviewed and interpreted this examination/study. > Interpreting Provider: Freddy Ramesh MD on 06/08/2024 5:06 PM Deloris Ferris PHOTOGRAPHIC EDITOR-CARE CONSULTANT US ORDERABL ES * (ABNORMAL) HEMOGLOBIN A1C [IN-HOUSE TEST] (09/12/2023 2:34 PM MICROBIOLOGY DIRECTOR) Only the most recent of2 resultswithin the time period is included. Hemoglobin A1c 6.0(H) <=5.6 % 09/12/2023 3:54 PM MICROBIOLOGY DIRECTOR [facility] Estimated Average Glucose 126 mg/dL 09/12/2023 3:54 PM [facility] Comment: HbA1c Interpretation: Normal : < 5.7% Pre-diabetes: 5.7-6.4% Diabetes: Equal to or greater than 6.5% Test results diagnostic of diabetes should be repeated for confirmation. Treatment target values recommended by ADA and other clinical organizations should be used to evaluate metabolic control in patients. Reference: [place] [employer], Standards of Care in Diabetes -2020 In patients 70 years and older consider HbA1c target range of 7.0-7.5% (Reference: Jitednra Cash et al. JAMDA. 2012) The Sebia assay for the measurement of HbA1c is a National Glycohemoglobin Standardization Program (NGSP) certified method. Blood BLOOD SPECIMEN WITH EDTA / Unknown Lab Venipuncture / Unknown 09/12/2023 2:34 PM MICROBIOLOGY DIRECTOR 09/12/2023 2:50 PM MICROBIOLOGY DIRECTOR Perfecto Contreras PA-C LAB - BASE PLY HAND RY ORDERABLES [address] [address], [place] [phone] * PROSTATE SPECIFIC ANTIGEN SCREEN (09/12/2023 2:34 PM MICROBIOLOGY DIRECTOR) PSA Total 0.5 0.0 - 4.0 ng/mL 09/12/2023 3:37 PM MICROBIOLOGY DIRECTOR [facility] Blood BLOOD SPECIMEN / Unknown Lab Venipuncture / Unknown 09/12/2023 2:34 PM MICROBIOLOGY DIRECTOR 09/12/2023 2:50 PM MICROBIOLOGY DIRECTOR Perfecto Contreras PA-C LAB - BASE PLY HAND RY ORDERABLES Performing Organization Address [facility] Co de Phone Number [address] [address], [place] [phone] * FOLATE (09/12/2023 2:34 PM MICROBIOLOGY DIRECTOR) Only the most recent of2 resultswithin the time period is included. Folate 12.9 7.0 - 31.4 ng/mL 09/12/2023 3:51 PM MICROBIOLOGY DIRECTOR [facility] Blood BLOOD SPECIMEN / Unknown Lab Venipuncture / Unknown 09/12/2023 2:34 PM MICROBIOLOGY DIRECTOR 09/12/2023 2:50 PM MICROBIOLOGY DIRECTOR Perfecto Contreras PA-C LAB - BASE PLY HAND RY ORDERABLES Performing Organization Address City/[facility]/ZIP Co de Phone Number [address] [address], [place] [phone] * VITAMIN B12 (09/12/2023 2:34 PM MICROBIOLOGY DIRECTOR) Only the most recent of3 resultswithin the time period is included. Vitamin B12 694 213 - 816 pg/mL 09/12/2023 3:[address] [facility] Blood BLOOD SPECIMEN / Unknown Lab Venipuncture / Unknown 09/12/2023 2:34 PM MICROBIOLOGY DIRECTOR 09/12/2023 2:50 PM MICROBIOLOGY DIRECTOR Perfecto Contreras PA-C LAB - BASE PLY HAND RY ORDERABLES [address] [address], [facility] [phone] * TSH (09/12/2023 2:34 PM MICROBIOLOGY DIRECTOR) TSH 2.527 0.350 - 4.940 uIU/mL 09/12/2023 3:51 PM [facility] Blood BLOOD SPECIMEN / Unknown Lab Venipuncture / Unknown 09/12/2023 2:34 PM MICROBIOLOGY DIRECTOR 09/12/2023 2:50 PM MICROBIOLOGY DIRECTOR Perfecto Contreras PA-C LAB - BASE PLY HAND RY ORDERABLES Performing Organization Address City/[facility]/ZIP Co de Phone Number [address] [address], [place] [phone] * LIPID PROFILE (09/12/2023 2:34 PM MICROBIOLOGY DIRECTOR) Only the most recent of4 resultswithin the time period is included. Cholesterol Total 160 <200 mg/dL 09/12/2023 3:19 PM [facility] HDL 59 >40 mg/dL 09/12/2023 3:19 PM [facility] Comment: ATP III Classification of HDL Cholesterol: <40 mg/dL: Considered a major risk factor. >60 mg/dL: Considered a negative risk factor. LDL Calculated 89 <100 mg/dL 09/12/2023 3:19 PM [facility] Comment: ATP III Classification of LDL Cholesterol: <100 mg/dL: Optimal 100 - 129 mg/dL: Near Optimal/Above Optimal 130 - 159 mg/dL: Borderline High 160 - 189 mg/dL: High >190 mg/dL: Very High Triglycerides 60 <150 mg/dL 09/12/2023 3:19 PM [facility] Comment: ATP III Classification of Triglycerides: <150 mg/dL: Normal 150 - 199 mg/dL: Borderline High 200 - 400 mg/dL: High >500 mg/dL: Very High Blood BLOOD SPECIMEN / Unknown Lab Venipuncture / Unknown 09/12/2023 2:34 PM MICROBIOLOGY DIRECTOR 09/12/2023 2:50 PM MICROBIOLOGY DIRECTOR Perfecto Contreras PA-C LAB - BASE PLY HAND RY ORDERABLES Performing Organization Address [facility]/ZIP Co de Phone Number [address] [address], [facility] [phone] * PTH INTACT W/O CALCIUM (01/31/2023 11:17 AM CDT) PTH Intact 30.8 8.0 - 77.0 pg/mL 01/31/2023 12:26 PM CDT [facility] Blood BLOOD SPECIMEN / Unknown Lab Venipuncture / Unknown 01/31/2023 11:17 AM CDT 01/31/2023 11:51 AM CDT Teofilo Weinstein MD LAB - CHEMISTRY CINDA REID Performing Organization Address [facility] Co de Phone Number [address] [address], [facility] [phone] * (ABNORMAL) URINALYSIS REFLEX TO MICROSCOPIC NO CULTURE (01/31/2023 11:17 AM CDT) Only the most recent of3 resultswithin the time period is included. Color UA Colorless(A ) Straw, Yellow 01/31/2023 12:09 PM CDT [facility] Clarity UA Clear Clear 01/31/2023 12:09 PM CDT [facility] Specific [place] UA 1.005 1.005 - 1.030 01/31/2023 12:09 PM T [facility] pH UA 6.0 5.0 - 8.0 pH 01/31/2023 12:09 PM CDT [facility] Protein UA Negative Negative 01/31/2023 12:09 PM T [facility] Glucose UA Negative Negative 01/31/2023 12:09 PM T [facility] Ketone UA Negative Negative 01/31/2023 12:09 PM T [facility] Bilirubin UA Negative Negative 01/31/2023 12:09 PM T [facility] Blood UA Negative Negative 01/31/2023 12:09 PM [...] AM CDT 01/31/2023 11:51 AM CDT Narrative [facility] - 01/31/2023 12:09 PM CDT Teofilo Weinstein MD LAB - URINALYSIS ORD ERABLES [facility] [address] [place] [address], [facility] [phone] * (ABNORMAL) VITAMIN D 25-HYDROXY (01/31/2023 11:17 [...] - CHEMISTRY CINDA REID Performing Organization Address City/[facility]/ZIP Co de Phone Number [address] [address], [facility] [phone] * PHOSPHORUS BLOOD (01/31/2023 11:17 AM CDT) Only the most recent of8 resultswithin the time period is included. Phosphorus 3.0 2.8 - 5.1 mg/dL 01/31/2023 12:23 PM CDT [facility] Blood BLOOD SPECIMEN / Unknown Lab Venipuncture / Unknown 01/31/2023 11:17 AM CDT 01/31/2023 11:51 AM CDT Teofilo Weinstein MD LAB - CHEMISTRY CINDA REID Performing Organization Address City/[facility] Co de Phone Number [address] [address], [facility] [phone] * MRI ABDOMEN WWO CONTRAST (09/01/2022 9:50 AM MICROBIOLOGY DIRECTOR) Only the most recent of2 resultswithin the time period is included. Anatomical Region Laterality Modality Abdomen Magnetic Resonan ce 09/03/2022 9:53 AM MICROBIOLOGY DIRECTOR Impressions 09/03/2022 10:29 AM MICROBIOLOGY DIRECTOR Impression: 1.Hepatic cirrhosis. 2.No arterially enhancing observations concerning for hepatocellular carcinoma. 3.Small volume ascites. 4.Normal gallbladder. Report dictated by Lesly Rees MD (echocardiography radiology technologist). I, Darshan Gama MD have personally reviewed and interpreted this examination/study. > Interpreting Provider: Darshan Gama MD on 09/03/2022 10:29 AM Narrative 09/03/2022 10:29 AM MICROBIOLOGY DIRECTOR PROCEDURE: MRI ABDOMEN WWO CONTRAST, DATE/TIME OF EXAM: 09/01/2022 9:51 AM, LOCATION [facility] INDICATION: K70.31: Alcoholic cirrhosis of liver with [...] CONTRAST, DATE/TIME OF EXAM: 09/01/2022 9:51AM, LOCATION [facility] INDICATION: K70.31: Alcoholic cirrhosis of liver with [...] gallbladder. Report dictated by Lesly Rees MD (echocardiography radiology technologist). I, Darshan Gama MD have personally reviewed and interpreted this examination/study. > Interpreting Provider: Darshan Gama MD on 09/03/2022 10:29 AM Deloris Cowart Ferris PHOTOGRAPHIC EDITOR-CARE CONSULTANT MR ORDERABL ES * (ABNORMAL) BASIC METABOLIC PANEL (CALCIUM TOTAL) (08/31/2022 11:13 AM MICROBIOLOGY DIRECTOR) Only the most recent of20 resultswithin the time period is included. BUN 21 7 - 26 mg/dL 08/31/2022 12:12 PM [facility] Creatinine 1.79(H) 0.71 - 1.16 mg/dL 08/31/2022 12:12 PM [facility] Sodium 140 136 - 145 mmol/L 08/31/2022 12:12 PM [facility] Potassium 4.2 3.5 - 4.5 mmol/L 08/31/2022 12:12 PM [facility] Chloride 107 98 - 107 mmol/L 08/31/2022 12:12 PM [facility] CO2 25 22 - 29 mmol/L 08/31/2022 12:12 PM [facility] Glucose 118(H) 70 - 115 mg/dL 08/31/2022 12:12 PM [facility] Calcium 9.2 8.4 - 10.2 mg/dL 08/31/2022 12:12 PM [facility] Anion Gap 12 8 - 18 08/31/2022 12:[address] [facility] BUN/Creatinine Ratio 12 7 - 23 08/31/2022 12:12 PM [facility] Osmolality Calculated 294 270 - 300 mOsm/kg 08/31/2022 12:12 PM [facility] eGFR by CKD-EPI 43(L) >=90 mL/min/1.7 3 m2 08/31/2022 12:12 PM [facility] Blood BLOOD SPECIMEN / Unknown Lab Venipuncture / Unknown 08/31/2022 11:13 AM MICROBIOLOGY DIRECTOR 08/31/2022 11:35 AM MICROBIOLOGY DIRECTOR Deloris Ferris APRNRAMIREZ LAB - CHEMI STRY ORDERABLES [address] [address], [facility] [phone] * TSH REFLEX FREE T4 (08/31/2022 11:02 AM MICROBIOLOGY DIRECTOR) TSH 2.634 0.350 - 4.940 uIU/mL 08/31/2022 12:26 PM [facility] Blood BLOOD SPECIMEN / Unknown Lab Venipuncture / Unknown 08/31/2022 11:02 AM MICROBIOLOGY DIRECTOR 08/31/2022 11:35 AM MICROBIOLOGY DIRECTOR Perfecto Contreras PA-C LAB - BASE PLY HAND RY ORDERABLES Performing Organization Address City/[facility]/ZIP Co de Phone Number [address] [address], [place] [phone] * PHOSPHATIDYLETHANOL (PETH) (08/21/2022 10:37 AM MICROBIOLOGY DIRECTOR) PEth 16:0/18.1 (POPEth) <10 ng/mL 08/23/2022 3:35 PM MICROBIOLOGY DIRECTOR [employer] [facility] ([facility]) Comment: INTERPRETIVE INFORMATION:Phosphatidylethanol (PEth), Whole Blood Phosphatidylethanol [...] Research). Test developed and characteristics determined by [employer]. See Compliance Statement B: [employer]AM[employer]/CS PEth 16:0/18.2 (PLPEth) <10 ng/mL 08/23/2022 3:35 PM MICROBIOLOGY DIRECTOR [employer] ([facility]) Comment: Performed By: [employer] [address] [place] [id number] Property Preservation Specialist: Francisco De Los Santos MD, PhD Blood BLOOD SPECIMEN / Unknown Lab Venipuncture / Unknown 08/21/2022 10:37 AM MICROBIOLOGY DIRECTOR 08/21/2022 10:53 AM MICROBIOLOGY DIRECTOR Deloris Ferris PHOTOGRAPHIC EDITOR-CARE CONSULTANT LAB - CHEMI STRY ORDERABLES [employer] ([facility]) [address] [place] [address], [facility] * EGD (11/25/2020 11:18 AM CDT) [...] non-monahan portions. Procedure Code(s): --- Professional --- 31400, Esophagogastroduode noscopy, flexible, transoral; diagnostic, including collection of specimen(s) by brushing or washing, when performed (separate procedure) Diagnosis Code(s): --- Professional --- I85.00, Esophageal varices without bleeding K20.9, Esophagitis, unspecified K76.6, Portal hypertension K31.89, Other diseases of stomach and duodenum CPT copyright 2019 [employer]. All rights reserved. The codes documented in this report are preliminary and upon bleacher operator review may be revised to meet current compliance requirements. Julio Cesar Leonard, 11/25/2020 11:47:26 AM Note Initiated On: 11/25/2020 11:18 AM Number of Addenda: 0 [facility] [address] [place] [address] [facility]OVATION 11/25/2020 11:1 8 AM CDT Julio Cesar Leonard MD GI PROCEDURE O RDERABLES [facility]ATION * PATHOLOGY TISSUE (10/07/2020 10:27 AM MICROBIOLOGY DIRECTOR) Only the most recent of3 resultswithin the time period is included. Case Report Surgical Pathology Report Case: [id number] Authorizing Provider: Julio Cesar Leonard, Collected: 10/07/2020 10:27 AM Ordering Location: [facility] ENDOSCOPY Received: 10/07/2020 11:24 AM Pathologist: Dalia [...] in duodenum (biopsied). 10/10/2020 2:18 PM CDT [facility] Gross Description The requisition and [...] were determined by the Histopathology Laboratory of [facility]. Some of these tests were developed by [...] the attending (teaching) pathologist. 10/10/2020 2:18 PM [facility] Embedded Images 10/10/2020 2:18 PM [facility] Biopsy, NOS PART OF DUODENUM / Unknown 10/07/2020 10:27 AM MICROBIOLOGY DIRECTOR 10/07/2020 11:24 AM MICROBIOLOGY DIRECTOR Comment:Pre-op diagnosis: K70.31 Alcoholic cirrhosis of liver with ascites I85.10 Secondary esophageal varices without bleeding Julio Cesar Leonard MD LAB - PATHOLOG Y/CYTOLOGY ORDERABLES [facility] [address] [phone] * EGD (10/07/2020 10:06 AM MICROBIOLOGY DIRECTOR) Report Endoscopy POC Endoscopy Department Report __ [...] and oxygen saturations were monitored continuously. The [id number] was introduced through the mouth, and advanced [...] the endoscope. Procedure Code(s): --- Professional --- 45793, Esophagogastroduode noscopy, flexible, transoral; with band ligation of esophageal/gastric varices 13731, Esophagogastroduode noscopy, flexible, transoral; with biopsy, single or multiple Diagnosis Code(s): --- Professional --- K22.8, Other specified diseases of esophagus I85.00, Esophageal varices without bleeding K31.7, Polyp of stomach and duodenum K31.89, Other diseases of stomach and duodenum CPT copyright 2019 [employer]. All rights reserved. The codes documented in this report are preliminary and upon bleacher operator review may be revised to meet current compliance requirements. Julio Cesar Leonard, 10/07/2020 10:56:08 AM Note Initiated On: 10/07/2020 10:06 AM Number of Addenda: [id number] [place] [address] [employer]ATION 10/07/2020 10:0 6 AM MICROBIOLOGY DIRECTOR Julio Cesar Leonard MD GI PROCEDURE O RDERABLES [facility] [employer]ATION * CARDIAC EKG ORDER (03/18/2020 5:46 [...] Julio Cesar Leonard MD LAB SEND OUT [facility] REF LAB NON INTERF [address] * DRUG SCREEN TOX URINE PANEL (12/01/2018 3:23 PM CDT) Only the most recent of2 resultswithin the time period is included. [facility] Amphetamines Screen Urine Negative Negative: < 1000 [...] PM CDT 12/01/2018 3:27 PM CDT Narrative [facility] - 12/01/2018 4:05 PM CDT The Urine Toxicology Screening Panel does not screen for Propoxyphene, Meprobamate, Carisoprodol, Trazodone, wuna-hwz-ujcvyyr medications and/or volatiles (Acetone, Isopropanol, Methanol or Ethylene Glycol). Ethanol, Salicylate, Acetaminophen, Tricyclic Antidepressants and several therapeutic drugs may be individually assayed in serum or plasma specimen. Toxicology testing by the [facility] is an aid to medical diagnosis and treatment of patients. No documented chain of custody was maintained. Results are intended to be used for clinical purposes only. Julio Cesar Leonard MD LAB - URINE CH EMISTRY ORDERABLES Performing Organization Address City/[facility]/ZIP Co de Phone Number [address] [phone] * [id number] BLOOD (12/01/2018 12:56 PM CDT) Only the most recent of2 resultswithin the time period is included. Ccpvh-[id number] ypsin 161 90 - 200 mg/dL 12/01/2018 2:34 PM CDT [facility] Blood BLOOD SPECIMEN / Unknown Lab Venipuncture / Unknown 12/01/2018 12:56 PM CDT 12/01/2018 1:15 PM CDT Julio Cesar Leonard MD LAB - CHEMISTR Y ORDERABLES Performing Organization Address City/[facility]/ZIP Co de Phone Number [address] [phone] * NICOTINE + METABOLITES BLOOD (12/01/2018 12:56 PM CDT) Only the most recent of3 resultswithin the time period is included. Nicotine None Detected ng/mL 12/03/2018 2:11 PM CDT [facility] ([facility]) Comment: This test was developed and its performance characteristics determined by [facility]. It has not been cleared or approved by the Food and Drug Administration. Nicotine levels greater than 2.0 are consistent with the use of tobacco or tobacco cessation products. Cotinine None Detected ng/mL 12/03/2018 2:11 PM CDT [facility]) Comment: This test was developed and its performance characteristics determined [facility]. It has not been cleared or approved by the Food and Drug Administration. Cotinine levels greater than 20.0 are consistent with the use of tobacco or tobacco cessation products. Blood BLOOD SPECIMEN / Unknown Lab Venipuncture / Unknown 12/01/2018 12:56 PM CDT 12/01/2018 1:15 PM CDT Narrative [facility] ([facility]) - 12/03/2018 2:11 PM CDT Performed at: - [address] [id number] [employer] Operator: Felix Alvarez MD, Phone: [phone] Julio Cesar Leonard MD LAB - CHEMISTR Y ORDERABLES [facility]) [address] [place] [address] * ALCOHOL ETHYL BLOOD (12/01/2018 12:56 PM CDT) Only the most recent of4 resultswithin the time period is included. Interpretation Ethanol None Detected None Detected mg/dL 12/01/2018 2:32 PM CDT [facility] Comment: Ethanol levels less than 10 mg/dL are resulted as None detected . Blood BLOOD SPECIMEN / Unknown Lab Venipuncture / Unknown 12/01/2018 12:56 PM CDT 12/01/2018 1:15 PM CDT Julio Cesar Leonard MD LAB - CHEMISTR Y ORDERABLES [address] [phone] * ENDOSCOPY, COLON, DIAGNOSTIC (11/28/2018 1:53 PM [...] and oxygen saturations were monitored continuously. The [id number] was introduced through the anus and advanced [...] malignant neoplasm of colon CPT copyright 2016 [employer]. All rights reserved. The codes documented in this report are preliminary and upon bleacher operator review may be revised to meet current compliance requirements. Julio Cesar Leonard, 11/28/2018 2:31:42 PM Note Initiated On: 11/28/2018 1:53 PM Number of Addenda: 0 [facility] [address] [place] [address] [facility] [employer] 11/28/2018 1:53 PM CDT Julio Cesar Leonard MD GI PROCEDURE O RDERABLES [facility] [employer] * EGD (11/28/2018 1:44 PM CDT) [...] entire procedure. Procedure Code(s): --- Professional --- 65015, Esophagogastrodu odenoscopy, flexible, transoral; diagnostic, including collection of specimen(s) by brushing or washing, when performed (separate procedure) Diagnosis Code(s): --- Professional --- K76.6, Portal hypertension K31.89, Other diseases of stomach and duodenum I85.00, Esophageal varices without bleeding CPT copyright 2016 [employer]. All rights reserved. The codes documented in this report are preliminary and upon bleacher operator review may be revised to meet current compliance requirements. Julio Cesar Leonard, 11/28/2018 2:28:16 PM Note Initiated On: 11/28/2018 1:44 PM Number of Addenda: 0 [facility] [address] [place] [address] [facility] [employer] 11/28/2018 1:44 PM CDT Benja Sauceda MD GI PROCEDURE JAELYNA DIANELYS [facility] [employer] * BONE DENSITY AXIAL SKELETON(1OR MORE SITES)[id number] (11/10/2018 9:45 AM CDT) Anatomical Region Laterality Modality Mammography 11/10/2018 1:41 PM CDT Narrative 11/10/2018 1:56 PM CDT Examination: Dual energy x-ray absorptiometry of the lumbar spine and hip. Clinical Indication: 58-year-old gentleman with end-stage liver disease presented today for evaluation before transplantation. Findings: Detailed data from the exam is sent separately to the ordering physician and is also available on Mail[employer], the Radiology Department's computerized picture archive system [...] ordering physician and is also available on [employer], the Radiology Department's computerized picture archive system [...] GOLD PLUS 4-TUBE (11/04/2018 7:33 AM CDT) [facility] QuantiFERON Criteria Comment 11/07/2018 5:09 PM CDT [facility] ([facility]) Comment: The QuantiFERON-TB Gold Plus result is determined by subtracting the Nil value from either TB antigen (Ag) tube. The mitogen tube serves as a control for the test. QuantiFERON TB1 Ag Value 0.02 IU/mL 11/07/2018 5:09 PM CDT [facility] ([facility]) QuantiFERON TB2 Ag Value 0.02 IU/mL 11/07/2018 5:09 PM CDT [facility] ([facility]) QuantiFERON Nil Value 0.03 IU/mL 11/07/2018 5:09 PM CDT [facility] ([facility]) QuantiFERON Mitogen Value >10.00 IU/mL 11/07/2018 5:09 PM CDT [facility] ([facility]) QuantiFERON-TB Gold Plus Negative Negative 11/07/2018 5:09 PM CDT [facility] ([facility]) Comment: The specimen received for QuantiFERON testing [...] CDT 11/04/2018 7:59 AM CDT Narrative [facility] ([facility]) - 11/07/2018 5:09 PM CDT Performed at: [address] [place] [id number] [employer] Operator: Wilder Jean PhD, Phone: [phone] Julio Cesar Leonard MD LAB - CHEMISTR Y ORDERABLES [facility] ([facility]) [address] [place] [address] * MITOCHONDRIAL ANTIBODY SCREEN (11/04/2018 7:33 AM CDT) Only the most recent of2 resultswithin the time period is included. Mitochondrial M2 Antibody 5.4 0.0 - 20.0 Units 11/05/2018 12:03 PM CDT [facility] Comment: Mitochondrial M2 Antibody Numeric Result Interpretation: <20.1 Units: Negative 20.1 - 24.9 Units: Equivocal >24.9 Units: Positive Blood BLOOD SPECIMEN / Unknown Lab Venipuncture / Unknown 11/04/2018 7:33 AM CDT 11/04/2018 7:58 AM CDT Julio Cesar Leonard MD LAB - CHEMISTR Y ORDERABLES Performing Organization Address [facility] Co de Phone Number [address] [phone] * SMOOTH MUSCLE ANTIBODY (11/04/2018 7:33 AM CDT) Only the most recent of2 resultswithin the time period is included. F-Actin Antibody IgG 14.4 0.0 - 19.9 Units 11/05/2018 12:03 PM CDT [facility] Comment: F-Actin Antibody Numeric Result Interpretation: <20.0 Units: Negative 20.0 - 30.0 Units: Weak Positive >30.0 Units: Moderate to Strong Positive Blood BLOOD SPECIMEN / Unknown Lab Venipuncture / Unknown 11/04/2018 7:33 AM CDT 11/04/2018 7:58 AM CDT Julio Cesar Leonard MD LAB - SEROLOGY ORDERABLES Performing Organization Address City/[facility]/ZIP Co de Phone Number [address] [phone] * HEPATITIS B SURFACE ANTIBODY (11/04/2018 7:33 AM CDT) Only the most recent of2 resultswithin the time period is included. Hepatitis B Virus Surface Antibody Non-react tyson Non-react tyson 11/04/2018 9:12 AM CDT [facility] Comment: < 8 mIU/mL Hepatitis B surface Antibody (HBsAb). Nonreactive for HBsAb - individual is considered not immune to Hepatitis B Virus infection. Hepatitis B Surface Antibody Quantitative 0.0 <8.0 mIU/mL 11/04/2018 9:12 AM CDT [facility] Comment: Hepatitis B Surface Antibody Numeric Result Interpretation: Nonreactive: <8.0 mIU/mL Indeterminate: 8.0 - 12.0 mIU/mL Reactive: >12.0 mIU/mL Blood BLOOD SPECIMEN / Unknown Lab Venipuncture / Unknown 11/04/2018 7:33 AM CDT 11/04/2018 7:58 AM CDT Julio Cesar Leonard MD LAB - CHEMISTR Y ORDERABLES Performing Organization Address [facility] Co de Phone Number [address] [phone] * HEPATITIS B CORE ANTIBODY (11/04/2018 7:33 AM CDT) Only the most recent of2 resultswithin the time period is included. Pathologist [facility] HBc Antibody Total Non-reacti ve Non-reacti ve 11/04/2018 9:18 AM CDT [facility] Blood BLOOD SPECIMEN / Unknown Lab Venipuncture / Unknown 11/04/2018 7:33 AM CDT 11/04/2018 7:58 AM CDT Julio Cesar Leonard MD LAB - CHEMISTR Y ORDERABLES Performing Organization Address [facility] Co de Phone Number [address] [phone] * HEPATITIS B SURFACE ANTIGEN W RFLX CONFIRMATION (11/04/2018 7:33 AM CDT) Only the most recent of2 resultswithin the time period is included. Hepatitis B Virus Surface Antigen Non-reacti ve Non-reacti ve 11/04/2018 12:54 PM CDT [facility] Blood BLOOD SPECIMEN / Unknown Lab Venipuncture / Unknown 11/04/2018 7:33 AM CDT 11/04/2018 7:58 AM CDT Julio Cesar Leonard MD LAB - CHEMISTR Y ORDERABLES Performing Organization Address City/[facility] Co de Phone Number [address] [phone] * (ABNORMAL) HEPATITIS A ANTIBODY (11/04/2018 7:33 AM CDT) Only the most recent of2 resultswithin the time period is included. [facility] Hepatitis A Virus Antibody Total Positive(A ) Negative 11/05/2018 6:21 AM CDT [facility] ([facility]) Blood BLOOD SPECIMEN / Unknown Lab Venipuncture / Unknown 11/04/2018 7:33 AM CDT 11/04/2018 8:01 AM CDT Narrative [facility] ([facility]) - 11/05/2018 6:21 AM CDT Performed at: 01 - [facility] [address] [place], [place] [id number] [employer] Operator: Wilder Jean PhD, Phone: [phone] Julio Cesar Leonard MD LAB - CHEMISTR Y ORDERABLES Performing Organization Address City/[facility] Co de Phone Number [facility] ([facility]) [address] [place] [id number] * ENDOTRACHEAL TUBE NOTE (10/29/2018 11:02 AM CDT) Narrative Sahil Medeiros MD - 10/29/2018 11:02 AM CDT Prabhakar Parsons DO 10/15/2018 9:46 AM Endotracheal Tube Placement: Patient Location: OR. Intubation Event Date/Time: 10/15/2018 9:21 AM Procedure: intubation (32620). Procedure Section: Sedation: under general anesthesia. Indications [...] 2.3 10 3/uL 10/24/2018 7:31 AM CDT [facility] Total Cell Count 100 10/25/19 [...] Vanegas MD LAB - HEMATOLOGY ORD ERABLES [address] [phone] * (ABNORMAL) HEPATIC FUNCTION PANEL (10/24/2018 5:31 AM CDT) Only the most recent of9 resultswithin the time period is included. Protein Total 5.3(L) 6.0 - 8.3 g/dL 019 6:31 AM [facility] Albumin 2.8(L) 3.4 - 5.0 g/dL 10/24/2018 6:[address] [facility] Bilirubin Total 3.6(H) 0.2 - 1.2 mg/dL [...] 40 - 150 Units/L 10/24/2018 6:[address] [facility] ALT 10 0 - 55 Units/L 10/24/2018 [...] Vanegas MD LAB - CHEMISTRY [facility]DA RE[facility] [address] [phone] * MAGNESIUM BLOOD (10/24/2018 5:31 AM CDT) Only the most recent of11 resultswithin the time period is included. Magnesium 1.6 1.6 - 2.6 mg/dL 10/24/2018 6:31 AM T [facility] Blood BLOOD SPECIMEN / Unknown Lab Venipuncture / Unknown 10/24/2018 5:31 AM CDT 10/24/2018 6:01 AM CDT Hilary Vanegas MD LAB - CHEMISTRY [facility] [address] [phone] * LAB MISC TEST (NOT BLOOD) (10/23/2018 11:11 AM CDT) Test Name 10/31/2018 4:08 PM CDT [facility] REF LAB NON INTERF Test Result 10/31/2018 4:08 PM CDT [facility] REF LAB NON INTERF Comment Ref Lab 9 4:08 PM CDT [facility] REF LAB NON INTERF Other URINE / Unknown Collection / Unknown 10/23/2018 11:11 AM CDT 10/23/2018 11:11 AM CDT Brittany Stubbs MD LAB - BODY FLUID ORD ERABLES [facility] REF LAB NON INTERF [address] * XR CHEST 2VW (10/22/2018 6:05 PM CDT) Only the most recent of2 resultswithin the time period is included. Anatomical Region Laterality Modality Chest Radiographic Earline ging 10/23/2018 8:11 AM CDT Impressions 10/23/2018 9:22 AM CDT IMPRESSION: Small left pleural effusion. Dictated by Gina Mao MD (echocardiography radiology technologist). This report was approved by Gina Mao [...] pleural effusion. Dictated by Gina Mao MD (echocardiography radiology technologist). This report was approved by Gina Mao [...] periapical abscess. Dictated by Deon Wilson MD (echocardiography radiology technologist) Libra, Dr. TIANNA BOOTH have personally reviewed [...] periapical abscess. Dictated by Deon Wilson MD (echocardiography radiology technologist) Dr. TIANNA Smyth have personally reviewed and [...] is included. Unit Description LR Red Cells [facility] BLOOD BANK LAB Unit ABO A [facility] B[facility]OD [facility] LAB Unit Rh POS [facility] LAB Product Code RL1 [facility] BLO OD BANK LAB Unit Donor # [id number] [facility] B[facility]OD [facility] LAB Unit Status transfused [facility] B[facility] OD BANK LAB Product Number [id number] [facility] B LOOD BANK LAB Blood Type Barcode 6200 [facility] BLOOD BANK LAB Blood Bank BLOOD SPECIMEN / Unknown 10/22/2018 8:41 AM CDT 10/22/2018 8:41 AM CDT Brittany Stubbs MD LAB - BLOOD BANK ORD ERABLES Performing Organization Address City/[facility]/ZIP Co de Phone Number [facility] BLOOD [facility]ANK LAB [address] * TYPE + SCREEN PANEL (10/22/2018 8:21 AM CDT) Only the most recent of3 resultswithin the time period is included. Antibody Screen NEG 9 9:34 AM CDT [facility] BLOOD BANK LAB ABO Rh A POS 10/22/2018 9:34 AM CDT [facility] BLOOD BANK LAB Blood Bank BLOOD SPECIMEN / Unknown Lab Venipuncture / Unknown 10/22/2018 8:21 AM CDT 10/22/2018 8:40 AM CDT Brittany Stubbs MD LAB - BLOOD BANK ORD ERABLES Performing Organization Address City/[facility]/ZIP Co de Phone Number [facility] BLOOD BANK LAB [address] * STRONGYLOIDES ANTIBODY IGG (10/22/2018 6:01 AM CDT) Strongyloides Antibody IgG 0.1 <=0.9 IV 10/25/2018 12:36 AM CDT [employer] ([facility]) Comment: INTERPRETIVE INFORMATION: Strongyloides Ab, IgG by [...] also result in false-positive results. Performed by [employer], [address] [place] [address] [email or web address], Fidel Parr MD, Lab. Director Blood BLOOD SPECIMEN / Unknown Lab Venipuncture / Unknown 10/22/2018 6:01 AM CDT 10/22/2018 7:09 AM CDT Brittany Stubbs MD LAB - SEROLOGY ORDER RADHA [facility] [employer] [facility]) [address] [place] [address], [facility] * DELPHINE BLOOD SCREEN W/REFLEX TITER (10/22/2018 6:01 AM CDT) DELPHINE Negative 10/23/2018 5:09 PM CDT [facility] ([facility]) Comment: Negative <1:80 Borderline 1:80 Positive >1:80 Blood BLOOD SPECIMEN / Unknown Lab Venipuncture / Unknown 10/22/2018 6:01 AM CDT 10/22/2018 7:09 AM CDT Narrative [facility] ([facility]) - 10/23/2018 5:09 PM CDT Performed at: [address] [place] [id number] [employer] Operator: Wilder Jean PhD, Phone: [phone] Brittany Stubbs MD LAB - CHEMISTRY [facility] RE[facility] Performing Organization Address [facility] Co de Phone Number [facility] ([facility]) [address] [place] [address], [place] * FARZAD-BENNETT VIRUS AB TO EARLY AG IGG (10/22/2018 6:01 AM CDT) Pathologist [facility] Farzad-Bennett Virus Early Antigen Antibody IgG <9.0 0.0 - 8.9 U/mL 10/23/2018 2:14 PM CDT [facility] ([facility]) Comment: Negative < 9.0 Equivocal 9.0 - 10.9 Positive >10.9 Blood BLOOD SPECIMEN / Unknown Lab Venipuncture / Unknown 10/22/2018 6:01 AM CDT 10/22/2018 7:09 AM CDT Narrative [facility] ([facility]) - 10/23/2018 2:14 PM CDT Performed at: [address] [place], [place] [id number] [place], [place] [id number] [employer] Operator: Wilder Jean PhD, Phone: [phone] Brittany Stubbs MD LAB - CHEMISTRY [facility] REID Performing Organization Address [facility] de Phone Number [facility]) [address] [place] [address] * SYPHILIS ANTIBODY CASCADING REFLEX (10/22/2018 5:59 AM CDT) [facility] Treponema pallidum Antibody Non-react tyson Non-react tyson 10/22/2018 8:34 AM CDT [facility] Comment: No Laboratory evidence of syphilis infection. Note: Circulating antibodies may be low or undetectable in early infection. If recent exposure is suspected, re-draw sample in 2-4 weeks and repeat testing. Blood BLOOD SPECIMEN / Unknown Lab Venipuncture / Unknown 10/22/2018 5:59 AM CDT 10/22/2018 7:08 AM CDT Brittany Stubbs MD LAB - SEROLOGY ORDER RADHA [address] [phone] * PSA FREE (10/22/2018 5:59 AM CDT) Pathologist [facility] PSA Free <0.10 0.00 - 0.50 ng/mL 10/22/2018 8:40 AM CDT [facility] Blood BLOOD SPECIMEN / Unknown Lab Venipuncture / Unknown 10/22/2018 5:59 AM CDT 10/22/2018 7:07 AM CDT Brittany Stubbs MD LAB - CHEMISTRY [facility] RE[facility] Performing Organization Address City/[facility]/ZIP Co de Phone Number [address] [phone] * CYTOMEGALOVIRUS ANTIBODY IGG BLOOD (10/22/2018 5:59 AM CDT) [facility] Cytomegalovirus Antibody IgG <0.60 0.00 - 0.59 U/mL 10/24/2018 6:16 AM CDT [facility] ([facility]) Comment: Negative <0.60 Equivocal 0.60 - 0.69 Positive >0.69 Blood BLOOD SPECIMEN / Unknown Lab Venipuncture / Unknown 10/22/2018 5:59 AM CDT 10/22/2018 7:08 AM CDT Narrative [facility] ([facility]) - 10/24/2018 6:16 AM CDT Performed at: 01 - [facility] [address] [place], [place] [id number] [employer] Operator: Wilder Jean PhD, Phone: [phone] Brittany Stubbs MD LAB - CHEMISTRY C[facility] RE[facility] ([facility]) [address] [place] [address] * RUBEOLA ANTIBODY IGG (10/22/2018 5:59 AM CDT) Pathologist [facility] Measles (Rubeola) Antibody IgG >300.0 Immune >29.9 AU/mL 10/23/2018 3:10 PM CDT [facility] ([facility]) Comment: Negative <25.0 Equivocal 25.0 - 29.9 Positive >29.9 Presence of antibodies to Rubeola is presumptive evidence of immunity except when acute infection is suspected. Blood BLOOD SPECIMEN / Unknown Lab Venipuncture / Unknown 10/22/2018 5:59 AM CDT 10/22/2018 7:08 AM CDT Narrative [facility] ([facility]) - 10/23/2018 3:10 PM CDT Performed at: [address] [place] [id number] [employer] Operator: Wilder Jean PhD, Phone: [phone] Brittany Stubbs MD LAB - CHEMISTRY CINDA REID Performing Organization Address [facility] de Phone Number [facility] ([facility]) [address] [place] [address] * VARICELLA ZOSTER ANTIBODY IGG (10/22/2018 5:59 AM CDT) [facility] Varicella zoster Virus Antibody IgG 3858 Immune >165 index 10/23/2018 3:10 PM CDT [facility] ([facility]) Comment: Negative <135 Equivocal 135 - 165 Positive >165 A positive result generally indicates exposure to the pathogen or administration of specific immunoglobulins, but it is not indication of active infection or stage of disease. Blood BLOOD SPECIMEN / Unknown Lab Venipuncture / Unknown 10/22/2018 5:59 AM CDT 10/22/2018 7:09 AM CDT Narrative [facility] ([facility]) - 10/23/2018 3:10 PM CDT Performed at: [address] [place] [id number] [employer] Operator: Wilder Jean PhD, Phone: [phone] Brittany Stubbs MD LAB - CHEMISTRY CINDA REID Performing Organization Address [facility] de Phone Number [facility] [facility] ([facility]) [address] [place] [address], [facility] * (ABNORMAL) TRANSFERRIN (10/22/2018 5:59 AM CDT) Transferrin 120(L) 174 - 382 mg/dL 10/22/2018 9:27 AM CDT [facility] Transferrin Saturation % 21 16 - 50 % 10/22/2018 9:27 AM CDT [facility] Blood BLOOD SPECIMEN / Unknown Lab Venipuncture / Unknown 10/22/2018 5:59 AM CDT 10/22/2018 7:08 AM CDT Brittany Stubbs MD LAB - CHEMISTRY CINDA REID [address] [phone] * TOXOPLASMA GONDII ANTIBODY IGG (10/22/2018 5:59 AM CDT) Pathologist [facility] Toxoplasma gondii Antibody IgG Quantitative <3.0 0.0 - 7.1 IU/mL 10/23/2018 7:20 AM CDT [facility] ([facility]) Comment: Negative <7.2 Equivocal 7.2 - 8.7 Positive >8.7 Blood BLOOD SPECIMEN / Unknown Lab Venipuncture / Unknown 10/22/2018 5:59 AM CDT 10/22/2018 7:08 AM CDT Narrative [facility] ([facility]) - 10/23/2018 7:20 AM CDT Performed at: - [facility] [address] [place], [place] [id number] [employer] Operator: Wilder Jean PhD, Phone: [phone] Brittany Stubbs MD LAB - CHEMISTRY CINDA REID [facility] ([facility]) [address] [place] [address] * (ABNORMAL) IRON BLOOD (10/22/2018 5:59 AM CDT) Iron 32(L) 50 - 175 mcg/dL 10/22/2018 9:27 AM CDT [facility] Blood BLOOD SPECIMEN / Unknown Lab Venipuncture / Unknown 10/22/2018 5:59 AM CDT 10/22/2018 7:08 AM CDT Brittany Stubbs MD LAB - CHEMISTRY CINDA REID [facility] [address] [place] [address] * (ABNORMAL) CBC W/O DIFFERENTIAL (10/21/2018 2:48 [...] 0 /100 WBC 10/21/2018 3:56 PM CDT [facility] Blood BLOOD SPECIMEN / Unknown Lab Venipuncture / Unknown 10/21/2018 2:48 PM CDT 10/21/2018 3:43 PM CDT Brittany Stubbs MD LAB - HEMATOLOGY ORD ERABLES [facility] [address] [phone] * TRANSFUSE RED BLOOD CELL LEUKOREDUCED UNIT(S) [...] bowel obstruction. Dictated by Deon Wilson MD (echocardiography radiology technologist). I, Dr. TIANNA BOOTH have personally reviewed [...] bowel obstruction. Dictated by Deon Wilson MD (echocardiography radiology technologist). Dr. TIANNA Smyth have personally reviewed and [...] basilar atelectasis. Dictated by Gina Mao MD (echocardiography radiology technologist). Dr. TIANNA Smyth have personally reviewed and [...] basilar atelectasis. Dictated by Gina Mao MD (echocardiography radiology technologist). I, Dr. TIANNA BOOTH have personally reviewed and interpreted this examination/study. This report was electronically signed by TIANNA BOOTH on 10/20/2018 1:42 PM . Hilary Vanegas MD DIAGNOSTIC IMAGING O RDERABLES * TRANSFUSE RED BLOOD CELL LEUKOREDUCED UNIT(S) (10/19/2018 10:10 AM CDT) Willa Meier MD NURSING - BLOOD ME OD TRANSFUSION * CULTURE FLUID+GRAM STAIN (10/18/2018 3:33 PM CDT) Only the most recent of4 resultswithin the time period is included. Culture No growth JACOB 10/26/2018 3:06 PM CDT [facility] Gram Stain Rare Polymorphonuclear cells 10/26/2018 3:06 PM CDT [facility] Gram Stain Heavy Red blood cells 10/26/2018 3:06 PM CDT [facility] Gram Stain No organisms seen 019 3:06 PM CDT [facility] Fluid BODY FLUID SPECIMEN / Unknown Collection / Unknown 10/18/2018 3:33 PM CDT 10/18/2018 6:06 PM CDT Brooklynn Awad MD LAB - MICROBIOL OGY ORDERABLES [facility] [address] [place] [address], [facility] [phone] * CULTURE ANAEROBE (10/18/2018 3:33 PM CDT) Only the most recent of3 resultswithin the time period is included. Culture No anaerobic organisms isolated JACOB 10/24/2018 11:57 AM CDT [facility] Microbiology HEMATOMA / Unknown Collection / Unknown 10/18/2018 3:33 PM CDT 10/18/2018 6:06 PM CDT Brooklynn Awad MD LAB - MICROBIOL OGY ORDERABLES Performing Organization Address [facility] Co de Phone Number [facility] MICRO[facility]OLOG[facility] [address] [place] [address], [facility] [phone] * SODIUM URINE RANDOM (10/17/2018 3:22 PM CDT) Sodium Urine <20 Not Established mmol/L 10/17/2018 4:06 PM CDT [facility] Urine URINE SPECIMEN OBTAINED BY CLEAN CATCH PROCEDURE / Unknown Collection / Unknown 10/17/2018 3:22 PM CDT 10/17/2018 3:31 PM CDT Julio Cesar Leonard MD LAB - URINE CH EMISTRY ORDERABLES Performing Organization Address [facility] [place] [address], [facility] [phone] * OSMOLALITY URINE (10/17/2018 3:22 PM CDT) Osmolality Urine 399 50 - 1,200 mOsm/kg 10/17/2018 4:36 PM CDT [facility] Comment:Confirmed by repeat analysis. Urine URINE SPECIMEN OBTAINED BY CLEAN CATCH PROCEDURE / Unknown Collection / Unknown 10/17/2018 3:22 PM CDT 10/17/2018 3:31 PM CDT Julio Cesar Leonard MD LAB - URINE CH EMISTRY ORDERABLES Performing Organization Address [facility] [place] [address], [facility] [phone] * CREATININE URINE RANDOM (10/17/2018 3:22 PM CDT) Creatinine Urine 117 Not Established mg/dL 10/17/2018 4:14 PM CDT [facility] Comment: Result obtained by dilution. Urine URINE SPECIMEN OBTAINED BY CLEAN CATCH PROCEDURE / Unknown Collection / Unknown 10/17/2018 3:22 PM CDT 10/17/2018 3:31 PM CDT Julio Cesar Leonard MD LAB - URINE CH EMISTRY ORDERABLES Performing Organization Address City/[facility]/ZIP Co de Phone Number [address] [phone] * OSMOLALITY BLOOD (10/17/2018 9:53 AM CDT) Osmolality 272 270 - 300 mOsm/kg 10/17/2018 12:05 PM CDT [facility] Comment:Confirmed by repeat analysis. Blood BLOOD SPECIMEN / Unknown Lab Venipuncture / Unknown 10/17/2018 9:53 AM CDT 10/17/2018 10:30 AM CDT Julio Cesar Leonard MD LAB - CHEMISTR Y ORDERABLES Performing Organization Address [facility]/ZIP Co de Phone Number [address] [phone] * XR ABDOMEN KUB (10/16/2018 7:10 PM CDT) Only the most recent of4 resultswithin the time period is included. Anatomical Region Laterality Modality Abdomen Radiographic Earline ging 10/17/2018 8:10 AM CDT Impressions 10/17/2018 8:20 AM CDT IMPRESSION: No evidence of bowel obstruction. Dictated by Gina Mao MD (echocardiography radiology technologist). I, Dr. TIANNA BOOTH have personally reviewed [...] bowel obstruction. Dictated by Gina Mao MD (echocardiography radiology technologist). I, Dr. TIANNA BOOTH have personally reviewed [...] AM CDT 10/15/2018 2:03 AM CDT Narrative [facility] - 10/15/2018 2:25 AM CDT No established reference range for WBC and RBC body fluid count. Armani Cooney DO LAB - BODY FLUID ORDERABLES [facility] [address] [place] [address] * DIFFERENTIAL MANUAL FLUID (10/15/2018 1:45 AM CDT) Only the most recent of2 resultswithin the time period is included. Segs % Fluid 3 % 10/15/2018 3:25 AM CDT [facility] Lymphocytes % Fluid 54 % 10/15/2018 3:25 AM CDT [facility] Monocytes % Fluid 21 % 019 3:25 AM CDT [facility] Macrophages % Fluid 14 % 10/15/2018 3:25 AM CDT [facility] Mesothelials % Fluid 8 % 10/15/2018 3:25 AM CDT [facility] Fluid (Ascities) Collection / Unknown 10/15/2018 1:45 AM CDT 10/15/2018 2:03 AM CDT Armani Cooney DO LAB - BODY FLUID ORDERABLES [facility] [address] [place], [place] [address] [place] [address] * CULTURE URINE (10/15/2018 12:28 AM CDT) Only the most recent of2 resultswithin the time period is included. Culture Urine <10,000 CFU/mL urogenital delmi JACOB 10/16/2018 9:10 AM CDT [facility] Urine URINE SPECIMEN OBTAINED BY CLEAN CATCH PROCEDURE / Unknown Collection / Unknown 10/15/2018 12:28 AM CDT 10/15/2018 12:35 AM CDT Armani Cooney DO LAB - MICROBIOLO GY ORDERABLES [facility] [address] [place] [address], [facility] [phone] * CULTURE BLOOD (10/15/2018 12:25 AM CDT) Only the most recent of4 resultswithin the time period is included. Culture No growth day 5 JACOB 10/20/2018 5:00 AM CDT [facility] Blood PERIPHERAL BLOOD / Unknown Lab Venipuncture / Unknown 10/15/2018 12:25 AM CDT 10/15/2018 12:40 AM CDT Armani Cooney DO LAB - MICROBIOLO GY ORDERABLES [facility] [address] [place] [address], [facility] [phone] * LACTIC ACID BLOOD (10/15/2018 12:25 AM CDT) Only the most recent of4 resultswithin the time period is included. Lactic Acid-Stat 1.1 0.5 - 2.2 mmol/L 10/15/2018 12:55 AM CDT [facility] Blood BLOOD SPECIMEN / Unknown Lab Venipuncture / Unknown 10/15/2018 12:25 AM CDT 10/15/2018 12:38 AM CDT Armani Cooney DO LAB - CHEMISTRY ORDERABLES Performing Organization Address [facility]/[place] [address], [facility] [phone] * PTT [facility] (10/15/2018 12:24 AM CDT) Only the most recent of2 resultswithin the time period is included. APTT 36.8 23.0 - 38.4 Seconds 10/15/2018 12:55 AM CDT [facility] Comment: Suggested therapeutic range for full dose I.V. heparin therapy for venous thromboembolism is 66.0-91.0 seconds. Blood BLOOD SPECIMEN / Unknown Lab Venipuncture / Unknown 10/15/2018 12:24 AM CDT 10/15/2018 12:38 AM CDT Armani Cooney DO LAB - COAGULATIO N ORDERABLES Performing Organization Address City/[facility]/[place] [address], [facility] [phone] * EGD (10/03/2018 10:56 AM MICROBIOLOGY DIRECTOR) Report Endoscopy POC Endoscopy Department Report _ [...] entire procedure. Procedure Code(s): --- Professional --- 50083, Esophagogastroduo denoscopy, flexible, transoral; with band ligation of esophageal/gastri c varices Diagnosis Code(s): --- Professional --- K22.8, Other specified diseases of esophagus K74.60, Unspecified cirrhosis of liver I85.10, Secondary esophageal varices without bleeding K20.9, Esophagitis, unspecified K44.9, Diaphragmatic hernia without obstruction or gangrene K76.6, Portal hypertension K31.89, Other diseases of stomach and duodenum CPT copyright 2016 [employer]. All rights reserved. The codes documented in this report are preliminary and upon bleacher operator review may be revised to meet current compliance requirements. Julio Cesar Leonard, 10/03/2018 12:39:02 PM Note Initiated On: 10/03/2018 10:56 AM Number of Addenda: 0 [facility] [address] [place] [address] [facility] [employer] 10/03/2018 10:5 6 AM MICROBIOLOGY DIRECTOR Julio Cesar Leonard MD GI PROCEDURE O RDERABLES [facility] [employer] * (ABNORMAL) GLUCOSE - POINT OF CARE (09/19/2018 11:58 AM MICROBIOLOGY DIRECTOR) Only the most recent of14 resultswithin the time period is included. Glucose WB/POC 154(H) 70 - 115 mg/dL 09/19/2018 12:44 PM MICROBIOLOGY DIRECTOR [facility] Specimen Type Arterial/C apillary 09/19/2018 12:44 PM MICROBIOLOGY DIRECTOR [facility] Blood BLOOD SPECIMEN / Unknown 09/19/2018 11:58 AM MICROBIOLOGY DIRECTOR 09/19/2018 12:44 PM MICROBIOLOGY DIRECTOR Narrative [facility] - 09/19/2018 12:44 PM MICROBIOLOGY DIRECTOR Saturation Diver: DADA CASTANON Jose Kimbrough MD LAB - POIN [facility] ORDERABLES [address] [phone] * FL UGI W SM BOWEL FOLLOW THRU (09/17/2018 7:28 PM MICROBIOLOGY DIRECTOR) Anatomical Region Laterality Modality Abdomen Radiographic Earline ging 09/17/2018 7:29 PM MICROBIOLOGY DIRECTOR Impressions 09/18/2018 12:53 PM MICROBIOLOGY DIRECTOR Impression: Distended proximal loops of ileum with nondilated distal loops is seen. There is normal transit time through the bowel. Findings are consistent with a partial small bowel obstruction. Findings were discussed with Dr. Spence by Dr. Rice at 7:37 PM on 09/17/2018. Dictated by Vivian Rice MD (echocardiography radiology technologist). Small bowel follow-through I, Dr. TIANNA BOOTH have personally reviewed and interpreted this examination/study. This report was electronically signed by TIANNA BOOTH on 09/18/2018 12:53 PM . Narrative 09/18/2018 12:53 PM MICROBIOLOGY DIRECTOR EXAMINATION: Small bowel series HISTORY: SBO PROCEDURE: The patient was given water-soluble contrast and serial radiographs were obtained at 15 to 30 minute intervals. FINDINGS: Comparison is made with concurrent CT abdomen pelvis. The refractory mixer radiograph multiple gas-distended loops of bowel are seen which appear to be . This appearance is consistent with history of obstruction. A nasogastric tube terminates at the gastroesophageal junction on the refractory mixer radiograph and was subsequently advanced. The stomach [...] made with concurrent CT abdomen pelvis. The refractory mixer radiograph multiple gas-distended loops of bowel are seenwhich appear to be . This appearance is consistent with history of obstruction. A nasogastric tube terminates at the gastroesophageal junction on the refractory mixer radiograph and was subsequently advanced. The stomach [...] on 09/17/2018. Dictated by Vivian Rice MD (echocardiography radiology technologist). Small bowel follow-through I, Dr. TIANNA BOOTH have personally reviewed and interpreted this examination/study. This report was electronically signed by TIANNA BOOTH on 09/18/2018 12:53 PM . Shailesh Falk MD FLUOROSCOPY ORD ERABLES * CT ABDOMEN PELVIS W CONTRAST (09/16/2018 2:50 PM MICROBIOLOGY DIRECTOR) Only the most recent of2 resultswithin the time period is included. Anatomical Region Laterality Modality Abdomen, Pelvis Computed Tomogra phy 09/16/2018 2:54 PM MICROBIOLOGY DIRECTOR Impressions 09/16/2018 3:56 PM MICROBIOLOGY DIRECTOR IMPRESSION: 1. Dilated loops of small bowel [...] on 09/16/2017. Dictated by Rodríguez Lanier DO (echocardiography radiology technologist). I, Dr. MYA CHAUHAN M.D. have personally reviewed and interpreted this examination/study. This report was electronically signed by MYA CHAUHAN M.D. on 09/16/2018 3:56 PM . Narrative 09/16/2018 3:56 PM MICROBIOLOGY DIRECTOR EXAMINATION: Computed tomography (CT) of the abdomen [...] PMon 09/16/2017. Dictated by Rodríguez Lanier DO (echocardiography radiology technologist). I, Dr. MYA CHAUHAN M.D. have personally reviewed and interpreted this examination/study. This report was electronically signed by MYA CHAUHAN M.D. on 09/16/2018 3:56 PM . Sherin Vines MD CT ORDERABLES * (ABNORMAL) URINALYSIS W/MICROSCOPIC NO CULTURE (09/16/2018 12:29 PM MICROBIOLOGY DIRECTOR) Only the most recent of2 resultswithin the time period is included. Color UA Netta(A) Straw, Yellow, Colorless 09/16/2018 12:48 PM MICROBIOLOGY DIRECTOR [facility] Clarity UA Clear Clear, Slt Cloudy 09/16/2018 12:48 PM MICROBIOLOGY DIRECTOR [facility] Specific [place] UA 1.024 1.005 - 1.030 09/16/2018 12:48 PM MICROBIOLOGY DIRECTOR [facility] pH UA 5.0 5.0 - 8.0 pH 09/16/2018 12:48 PM MICROBIOLOGY DIRECTOR [facility] Protein UA Negative Negative mg/dL 09/16/2018 12:48 PM MICROBIOLOGY DIRECTOR [facility] Glucose UA Negative Negative mg/dL 09/16/2018 12:[address] [facility] Ketone UA Negative Negative mg/dL 09/16/2018 12:48 PM [facility] Bilirubin UA Negative Negative mg/dL 09/16/2018 12:48 PM [facility] Comment: Urine Bilirubin result confirmed by manual Ictotest. Blood UA Negative Negative 09/16/2018 12:48 PM [facility] Nitrite UA Negative Negative 09/16/2018 12:48 PM [facility] Leukocyte Esterase Negative Negative 09/16/2018 12:48 PM [facility] Urobilinogen UA 4.0(A) Negative mg/dL 09/16/2018 12:48 PM [facility] RBC UA 0-2 None Seen, 0-2, 3-5 /HPF 09/16/2018 12:48 PM [facility] WBC UA 0-5 None Seen, 0-5 /HPF 09/16/2018 12:48 PM [facility] Bacteria UA 2+(A) None, Trace /HPF 09/16/2018 12:48 PM [facility] Squamous Epithelial Cells UA None Seen None Seen, 0-2 /HPF 09/16/2018 12:48 PM [facility] Mucus UA 4+(A) None, 1+ /LPF 09/16/2018 12:48 PM [facility] Urine URINE SPECIMEN OBTAINED BY CLEAN CATCH PROCEDURE / Unknown Collection / Unknown 09/16/2018 12:29 PM MICROBIOLOGY DIRECTOR 09/16/2018 12:36 PM MICROBIOLOGY DIRECTOR Sherin Vines MD LAB - URINALY SIS ORDERABLES Performing Organization Address City/State/[facility] Co de Phone Number [facility] [address] [place] [address] * XR ABD OBSTRUCTION SERIES 2VW (09/16/2018 10:19 AM MICROBIOLOGY DIRECTOR) Anatomical Region Laterality Modality Abdomen Radiographic Earline ging 09/16/2018 10:2 5 AM MICROBIOLOGY DIRECTOR Impressions 09/16/2018 1:26 PM MICROBIOLOGY DIRECTOR IMPRESSION: Distended small bowel is concerning for partial small bowel obstruction. Dictated by Franklin Zazueta MD (echocardiography radiology technologist). This report was approved by Franklin Zazueta on 09/16/2018 1:[address] MYA Smyth M.D. have personally reviewed and interpreted this examination/study. This report was electronically signed by MYA CHAUHAN M.D. on 09/16/2018 1:26 PM . Narrative 09/16/2018 1:26 PM MICROBIOLOGY DIRECTOR EXAMINATION: XR ABD OBSTR SERIES HISTORY: Eval [...] bowel obstruction. Dictated by Franklin Zazueta MD (echocardiography radiology technologist). This report was approved by Franklin Zazueta on 09/16/2018 1:[address] MYA Smyth M.D. have personally reviewed and interpreted this examination/study. This report was electronically signed by MYA CHAUHAN M.D. on 09/16/2018 1:26 PM . Sherin Vines MD DIAGNOSTIC IM AGING ORDERABLES * (ABNORMAL) LIPASE BLOOD (09/16/2018 9:36 AM MICROBIOLOGY DIRECTOR) Only the most recent of2 resultswithin the time period is included. Lipase 104(H) 8 - 78 Units/L 09/16/2018 10:05 AM MICROBIOLOGY DIRECTOR [facility] Blood BLOOD SPECIMEN / Unknown Venipuncture / Unknown 09/16/2018 9:36 AM MICROBIOLOGY DIRECTOR 09/16/2018 9:46 AM MICROBIOLOGY DIRECTOR Sherin Vines MD LAB - BASE PLY HAND RY ORDERABLES [address] [phone] * AMMONIA (09/16/2018 6:17 AM MICROBIOLOGY DIRECTOR) Only the most recent of2 resultswithin the time period is included. Ammonia 35 11 - 64 umol/L 09/16/2018 6:37 AM MICROBIOLOGY DIRECTOR [facility] Blood BLOOD SPECIMEN / Unknown Venipuncture / Unknown 09/16/2018 6:17 AM MICROBIOLOGY DIRECTOR 09/16/2018 6:27 AM MICROBIOLOGY DIRECTOR Nabila Dodd MD LAB - CHEMISTRY ORDKirti REID Performing Organization Address City/[facility]/ZIP Co de Phone Number [address] [phone] * ED PARACENTESIS (09/16/2018 2:20 AM MICROBIOLOGY DIRECTOR) Narrative Ayaan Marin MD - 09/16/2018 2:20 AM MICROBIOLOGY DIRECTOR Sherin Vines MD 09/08/2018 9:38 PM Paracentesis [...] * (ABNORMAL) BILIRUBIN DIRECT (09/10/2018 9:14 AM MICROBIOLOGY DIRECTOR) Pathologist [facility] Bilirubin Conjugated 1.1(H) 0.0 - 0.5 mg/dL 09/10/2018 9:[address] [facility] Bilirubin Unconjugated 2.3 Unconjugated Bilirubin is a calculated value: Reference ranges have not been established. mg/dL 09/10/2018 9:41 AM [facility] Blood BLOOD SPECIMEN / Unknown Lab Venipuncture / Unknown 09/10/2018 9:14 AM MICROBIOLOGY DIRECTOR 09/10/2018 9:25 AM MICROBIOLOGY DIRECTOR Ozzie Marquez MD LAB - CHEMISTRY ORDE JEANETTE [address] [phone] * EKG 12-LEAD (09/10/2018 8:39 AM MICROBIOLOGY DIRECTOR) Only the most recent of2 resultswithin the time period is included. [facility] Ventricular Rate 93 BPM [facility] MUSE Atrial Rate 93 BPM [facility] MUSE P-R Interval 164 ms [facility] MUSE QRS Duration ms 94 ms [facility] MUSE Q-T Interval ms 368 ms [facility] MUSE QTC Calculation (Bezet) 457 ms [facility] MUSE Calculated P [place] 38 degrees [facility] MUSE Calculated R [place] -9 degrees [facility] MUSE Calculated T [place] 14 degrees [facility] MUSE Interpretation EKG NORMAL SINUS RHYTHM WITH SINUS ARRHYTHMIA NORMAL ECG WHEN COMPARED WITH ECG OF 04-MAR-2017 10:39, SINUS RHYTHM HAS REPLACED ATRIAL FIBRILLATION Confirmed by Katelyn MENA, JOSE ([id number]), features editor Toñito Sanderson ([id number]) on 10/28/2018 9:19:30 PM [facility] MUSE 09/10/2018 8:39 AM MICROBIOLOGY DIRECTOR 10/28/2018 9:19 PM CDT Ozzie Marquez MD ECG ORDERABLES [facility] MUSE * PROTEIN BODY FLUID ([facility] ONLY) (09/08/2018 9:43 PM MICROBIOLOGY DIRECTOR) [facility] Protein Fluid 2.7 Not Established For Fluids g/dL 09/08/2018 10:05 PM [facility] Comment: The reference range and other method performance specifications have not been established for this fluid. The test result must be integrated into the clinical context for interpretation. Fluid PERITONEAL FLUID / Unknown Collection / Unknown 09/08/2018 9:43 PM MICROBIOLOGY DIRECTOR 09/08/2018 9:46 PM MICROBIOLOGY DIRECTOR Sherin Vines MD LAB - BODY FL UID ORDERABLES Performing Organization Address [facility] Co de Phone Number [address] [phone] * LD BODY FLUID ([facility] ONLY) (09/08/2018 9:43 PM MICROBIOLOGY DIRECTOR) [facility] LD Fluid 148 Not Established For Fluids Units/L 09/08/2018 10:05 PM [facility] Comment: The reference range and other method performance specifications have not been established for this fluid. The test result must be integrated into the clinical context for interpretation. Fluid PERITONEAL FLUID / Unknown Collection / Unknown 09/08/2018 9:43 PM MICROBIOLOGY DIRECTOR 09/08/2018 9:46 PM MICROBIOLOGY DIRECTOR Sherin Vines MD LAB - BODY FL UID ORDERABLES Performing Organization Address [facility] de Phone Number [address] [phone] * GLUCOSE BODY FLUID ([facility] ONLY) (09/08/2018 9:43 PM MICROBIOLOGY DIRECTOR) [facility] Glucose Fluid 105 Not Established For Fluids mg/dL 09/08/2018 10:05 PM [facility] Comment: The reference range and other method performance specifications have not been established for this fluid. The test result must be integrated into the clinical context for interpretation. Fluid PERITONEAL FLUID / Unknown Collection / Unknown 09/08/2018 9:43 PM MICROBIOLOGY DIRECTOR 09/08/2018 9:46 PM MICROBIOLOGY DIRECTOR Sherin Vines MD LAB - BODY FL UID ORDERABLES Performing Organization Address [facility] Co de Phone Number [phone] [address] [phone] * TROPONIN I (09/08/2018 5:26 PM MICROBIOLOGY DIRECTOR) Pathologist [facility] Troponin I 0.014 <0.032 ng/mL 09/08/2018 5:51 PM MICROBIOLOGY DIRECTOR [facility] Blood BLOOD SPECIMEN / Unknown Venipuncture / Unknown 09/08/2018 5:26 PM MICROBIOLOGY DIRECTOR 09/08/2018 5:26 PM MICROBIOLOGY DIRECTOR Sherin Vines MD LAB - BASE PLY HAND RY ORDERABLES [address] [phone] * HIV-1 HIV-2 ANTIGEN/ANTIBODY (09/08/2018 11:34 AM MICROBIOLOGY DIRECTOR) [facility] HIV Antigen/Antibod y 1 & 2 Non-reacti ve Non-react tyson 09/08/2018 12:17 PM [facility] Comment: Neither HIV-1 p24 Antigen nor HIV-1/HIV-2 Antibodies are detected. Blood BLOOD SPECIMEN / Unknown Venipuncture / Unknown 09/08/2018 11:34 AM MICROBIOLOGY DIRECTOR 09/08/2018 11:37 AM MICROBIOLOGY DIRECTOR Ayaan Marin MD LAB - HEMATOLOGY ORD ERABLES [address] [phone] * HEPATITIS C AB SCREEN RFLX NAAT QUANT (09/08/2018 11:34 AM MICROBIOLOGY DIRECTOR) [facility] Hepatitis C Antibody Non-react tyson Non-reac tive 09/08/2018 12:17 PM MICROBIOLOGY DIRECTOR [facility] Comment: Hepatitis C Antibody screen indicates no serologic evidence of past or current infection with Hepatitis C Virus. Patients with unexplained liver disease who are immunocompromised or suspected of having acute Hepatitis C infection may benefit from Nucleic Acid Test (CRYSTAL) for Hepatitis C Viral RNA to confirm Hepatitis C status. Blood BLOOD SPECIMEN / Unknown Venipuncture / Unknown 09/08/2018 11:34 AM MICROBIOLOGY DIRECTOR 09/08/2018 11:37 AM MICROBIOLOGY DIRECTOR Ayaan Marin MD LAB - CHEMISTRY [facility] [address] [phone] * (ABNORMAL) PT-INR (08/18/2018 8:50 AM MICROBIOLOGY DIRECTOR) Pathologist [facility] INR 1.2(H) [facility] Comment: Reference Range 0.9-1.1 Moderate-intensity Warfarin Therapy 2.0-3.0 Higher-intensity Warfarin Therapy 3.0-4.0 PT 12.2(H) 9.0 - 11.5 sec [facility] Comment: For more information on this test, go to: http://education.CoachBase/faq/RTX939 REPORT COMMENT: FASTING:YES AN UPDATE OR CORRECTION HAS BEEN MADE TO NAME Test Performed at: [employer] [address] [place] [address] JOSE BABIN DO,MPH 08/18/2018 8:50 AM MICROBIOLOGY DIRECTOR 08/18/2018 8:52 AM MICROBIOLOGY DIRECTOR Julio Cesar Leonard MD LAB - COAGULAT ION ORDERABLES Performing Organization Address City/[facility]/ZIP Co de Phone Number [facility] [address] [place] [address] * (ABNORMAL) VITAMIN D 25-HYDROXY D2+D3 BY TANDEM MASS (02/21/2017 8:59 AM CDT) Vitamin D, 25 Hydroxy Total 21(L) 30 - 100 ng/mL [facility] ([facility]) Comment: 25-OHD3 indicates both endogenous production and [...] Hydroxy D3 21 See Below ng/mL [facility] ([facility]) Comment:Reference Range: Not established Vitamin D, 25 Hydroxy D2 <4 See Below ng/mL [facility] ([facility]) Comment: Reference Range: Not established Test Performed at: [facility] [address] [address] ALONDRA YANES MD,AP 02/21/2017 8:59 AM CDT 02/21/2017 8:59 AM CDT Monserrat Diggs MD LAB - CHEMISTRY OR DERABLES Performing Organization Address City/[facility]/ZIP Co de Phone Number [facility] ([facility]) * FOLATE RBC (02/21/2017 8:59 AM CDT) Pathologist [facility] RBC Folate 621 >280 ng/mL RBC [facility] ([facility]) Comment: Test Performed at: [employer] [facility] [place] [address] JOSE BABIN DO,MPH 02/21/2017 8:59 AM CDT 02/21/2017 8:59 AM CDT Monserrat Diggs MD LAB - CHEMISTRY OR DERABLES Performing Organization Address [facility] de Phone Number [facility] ([facility]) * (ABNORMAL) PLATELET ESTIMATION (03/14/2015 10:30 AM CDT) [facility] Platelet Estimate DECREASED (A) ADEQUATE [facility] ([facility]) Comment: REPORT COMMENT: IS PATIENT ON HEPARIN, ARGATROBAN OR DABIGATRAN?->N Test Performed at: [place] [address] JOSE BABIN DO,MPH 03/14/2015 10:3 0 AM CDT 03/14/2015 10:32 AM CDT Zachery Morris MD LAB - HEMATOLOGY ORD ERABLES Performing Organization Address [facility] Co de Phone Number [facility] ([facility]) * [id number]-4-[id number] BLOOD PHENOTYPING PANEL (03/14/2015 10:30 AM CDT) [facility] Zhjhk-1-Zdblkpldl in Phenotype SEE NOTE [facility] ([facility]) Comment: THIS PATIENT'S HWDCU-1-HEBYQBCUHWD PHENOTYPE IS PI*MM. 90% of normal individuals have the MM phenotype, with normal quantitative AAT levels. Many phenotypic patterns have been described, including deficiency states with F, S, Z, or other alleles. As a general estimation, compared to M allele of 100% of normal V-9-Axybvjzwxrl protein, the S allele produces approximately 60% and the Z allele 20%. For example, an MS phenotype would have about 80% of normal C-9-Tprqzbggubb protein level, a 50% contribution from the M allele and 30% from the S allele. A ZZ phenotype would have about 20% of normal levels. The F allele has normal H-5-Qxfrmkjdqyj levels, but the kinetics of elastase inhibition is not as efficient as an M allele product; F alleles should be considered functionally mildly deficient. REPORT COMMENT: IS PATIENT ON HEPARIN, ARGATROBAN OR DABIGATRAN?->N Test Performed at: [employer] [facility] [address] [place] [address] NII PIERRE MD PHD Blood specimen (specimen) BLOOD SPECIMEN / Unknown 03/14/2015 10:30 AM CDT 03/14/2015 10:32 AM CDT Zachery Morris MD LAB - CHEMISTRY [facility] ([facility]) * CERULOPLASMIN (03/14/2015 10:30 AM CDT) Ceruloplasmin 31 18 - 36 mg/dL [facility] ([facility]) Comment: REPORT COMMENT: IS PATIENT ON HEPARIN, ARGATROBAN OR DABIGATRAN?->N Test Performed at: [facility] [place] [address] [place] [address] JOSE BABIN DO,MPH Blood specimen (specimen) BLOOD SPECIMEN / Unknown 03/14/2015 10:30 AM CDT 03/14/2015 10:32 AM CDT Zachery Morris MD LAB - CHEMISTRY [facility] Performing Organization Address City/[facility] de Phone Number [facility] ([facility]) * HEPATITIS C ANTIBODY (03/14/2015 10:30 AM CDT) Hepatitis C Antibody NON-REACTI VE NON-REACT TYSON [facility] ([facility]) Signal/Cutoff 0.04 <1.00 [facility] ([facility]) Comment: Test Performed at: [employer] [id number] [facility] [place] [address] JOSE BABIN DO,MPH Blood specimen (specimen) BLOOD SPECIMEN / Unknown 03/14/2015 10:30 AM CDT 03/14/2015 10:32 AM CDT Zachery Morris MD LAB - CHEMISTRY [facility] Performing Organization Address [facility] Phone Number [facility] ([facility]) * FERRITIN (03/14/2015 10:30 AM CDT) Pathologist [facility] Ferritin 67 20 - 380 ng/mL [facility] ([facility]) Comment: REPORT COMMENT: IS PATIENT ON HEPARIN, ARGATROBAN OR DABIGATRAN?->N Test Performed at: [employer] [facility] [place] [address] JOSE BABIN DO,MPH Blood specimen (specimen) BLOOD SPECIMEN / Unknown 03/14/2015 10:30 AM CDT 03/14/2015 10:32 AM CDT Zachery Morris MD LAB - CHEMISTRY [facility] Performing Organization Address [facility] Phone Number [facility] ([facility]) * CT ABDOMEN MULTI PHASE W CONT [...] ORDERABLES * CREATININE BLOOD - POCT (IP) [facility] (01/24/2015 12:40 PM CDT) Creatinine POCT 0.66 0.3 - 1.3 mg/dL [facility] eGFR POCT 60 60 ml/min [facility] 01/24/2015 12:4 0 PM CDT Zachery Morris MD LAB - POINT OF CARE ORDERABLES [facility] Care Teams Filter Tank Operator Relationship Specialty Start Date End Date Barron Adan MD [address] [place] [address] PCP - General Internal Medicine 08/31/24 Jt Collins, PHOTOGRAPHIC EDITOR-CARE CONSULTANT [address] [place], [place] [id number] Nurse Practitioner 06/03/24
--- OUTSIDE RECORDS SUMMARY | 2024-10-10 17:54 | XMS_ITS | Clinical Summary ---
Author Organization [facility] Address [address] [place] [address] Care Team Providers Care Cellular Phone Repairer Name Role Phone Jt Collins APRN-ABSORPTION OPERATOR Unavailable [phone] Barron Adan MD Primary Care Provider [phone] Source Comments [facility],non-owned Affiliates and Associated Physician Practices is amultiple site organization consisting of ambulatory clinics and hospital sitesin [place], [place], [place]. This disclosure is being madepursuant to the Care Everywhere program and may not contain all information available regarding this patient. Last updated 18.[facility] Allergies No known active allergies Medications * [...] 90 tablet 3 03/23/2024 Active HYDROcodone-acetami nophen ([place]) 5-325 MG tabletIndications:P ain of left hand [...] the GI and hepatology clinic here at [facility]. He was recently at a local [...] Marker 3.250 PSA Free <0.10 03/14/2015 10:30 Qazxa-1-[id number] 162 10/22/2018 06:01 DELPHINE Negative 03/14/2015 10:30 [...] is the impression of this social and human services assistant that Rhett Baconzane has several positive factors for Liver transplant candidacy including knowledge of illness, sufficient insurance coverage, stable financial situation for post transplant needs, no concerns regarding current substance abuse, adequate support system, and appropriate discharge plan. Plan: painting worker to provide supportive services as needed. Patient appears to be a reasonable candidate for transplant from a psychosocial perspective, pending: -Random ETOH/nicotine/drug screens until time of transplant. -Patient must complete 8 weeks of documented relapse prevention with monthly attendance until time of transplant. Psychiatric Consult Recommended: No Transplant Demolition Engineer: Hilary Yoder LMSW PT: (11/04/18) Assessment: Pt [...] has stabilized. Will f/u with pt per [place] Nutrition Frailty Free score of 2. Does [...] Department Care Team Description 09/30/2024 9:30 AM PRODUCE SERVICE TEAM MEMBER - 09/30/2024 11:59 PM PRODUCE SERVICE TEAM MEMBER Hospital Encounter [facility] OT [address] [place] [address] Florian Barlow MD Pisciotto, Erica D, OT Discharge Disposition: Home or Self Care 09/16/2024 9:15 AM PRODUCE SERVICE TEAM MEMBER - 09/16/2024 11:59 PM PRODUCE SERVICE TEAM MEMBER Hospital Encounter [facility] OT [address] [place] [address] Florian Barlow MD Pisciotto, Erica D, OT Discharge Disposition: Home or Self Care 08/31/2024 4:00 PM PRODUCE SERVICE TEAM MEMBER - 08/31/2024 11:59 PM PRODUCE SERVICE TEAM MEMBER Hospital Encounter [facility] OT [address] [place] [address] Florian Barlow MD Pisciotto, Erica D, OT Discharge Disposition: Home or Self Care 08/31/2024 2:17 PM PRODUCE SERVICE TEAM MEMBER - 08/31/2024 3:59 PM PRODUCE SERVICE TEAM MEMBER Hospital Encounter [facility] DIAGNOSTIC RAD OP [address] [place] [address] Florian Barlow MD Discharge Disposition: Home or Self Care 08/31/2024 2:00 PM PRODUCE SERVICE TEAM MEMBER Office Visit [facility] - Plastic Surgery [address] [place] [address], [place] [address] Devon Payne MD Mailey, Brian A, MD Closed dislocation finger, proximal interphalangeal joint, traumatic (Primary Dx); Laceration of left index finger without foreign body without damage to nail, subsequent encounter 08/31/2024 Travel 08/31/2024 Orders Only [facility] - General Surgery [address] [place] [address], [place] [address] Florian Barlow MD Laceration of left index finger without foreign body without damage to nail, subsequent encounter ; Left hand pain 08/21/2024 Telephone [facility] - Internal Medicine [address] [facility] [place] [address] [place] [address] Mariel Alcocer Referral Consult Request 08/20/2024 Patient Outreach [facility] - Care Coordination [address] [place] [phone] Melba Monsalve RN ER Follow-up 08/20/2024 Patient Outreach [facility] - Care Coordination [address] [place] [address] Rama London RN ER Follow-up 08/20/2024 Telephone [facility] - Internal Medicine [address] [facility] [address] [place] [phone] Devon Payne MD Appointment; Reminder Call 08/19/2024 1:36 PM PRODUCE SERVICE TEAM MEMBER - 08/19/2024 6:04 PM [facility] Emergency [facility] EMERGENCY DEPARTMENT [address] [place] [address] Laceration of left index finger without foreign [...] Comments Blood Pressure 104/67 08/31/2024 2:36 PM PRODUCE SERVICE TEAM MEMBER Pulse 87 08/31/2024 2:36 PM PRODUCE SERVICE TEAM MEMBER Temperature 36.2 C (97.2 F) 08/31/2024 2:36 PM PRODUCE SERVICE TEAM MEMBER Respiratory Rate 18 08/19/2024 5:58 PM PRODUCE SERVICE TEAM MEMBER Oxygen Saturation 96% 08/31/2024 2:36 PM PRODUCE SERVICE TEAM MEMBER Inhaled Oxygen Concentration - - Weight 118.9 kg (262 lb 3.2 oz) 08/31/2024 2:36 PM PRODUCE SERVICE TEAM MEMBER Height 188 cm (6' 2 ) 08/31/2024 2:36 PM PRODUCE SERVICE TEAM MEMBER Body Mass Index 33.66 08/31/2024 2:36 PM PRODUCE SERVICE TEAM MEMBER Plan of Treatment Upcoming Encounters Date Type Department Care Team (Late st Contact Info) Description 10/15/2024 9:30 AM CDT Appointment [facility] OT [address] [place] [phone] Estee Jordan, OT 12/07/2024 11:00 AM CDT Appointment [facility] [address] [place] [phone] Deloris Ferris, REVENUE FIELD AUDITOR-ABSORPTION OPERATOR [address] [place] [address] [place] [address] 12/07/2024 12:00 PM CDT Appointment [facility] LAB OP DRAW STATION [address] [place] [address] Deloris Ferris, REVENUE FIELD AUDITOR-ABSORPTION OPERATOR [address] [place] [address] [place] [address] 12/07/2024 2:00 PM CDT Office Visit [facility] - GI [address] [place] [address], [place] [phone] Deloris Ferris, REVENUE FIELD AUDITOR-ABSORPTION OPERATOR [address] [place] [address] [place] [address] 12/15/2024 3:00 PM CDT Office Visit [facility] - Internal Medicine [address] [facility] [address] [place] [phone] [place] [address] [place] [address] [address] [place] [address] 01/21/2025 10:00 AM CDT Office Visit [facility] - Nephrology [address] [place] [address], [place] [address] Teofilo Weinstein MD [address] [place] [address] [address] DIV OF NEPHROLOGY [place], [place] [id number] Health Maintenance Due Date Last Done Comments [...] 3VW OR MORE Routine 08/31/2024 2:25 PM PRODUCE SERVICE TEAM MEMBER Laceration of left index finger without foreign body without damage to nail, subsequent encounter Left hand pain CBC W AUTO DIFFERENTIAL STAT 08/19/2024 4:28 PM PRODUCE SERVICE TEAM MEMBER XR HAND LEFT 3VW OR MORE STAT 08/19/2024 8:19 AM PRODUCE SERVICE TEAM MEMBER Pain of left hand COMPREHENSIVE METABOLIC PANEL Routine 06/08/2024 1:33 PM PRODUCE SERVICE TEAM MEMBER Alcoholic cirrhosis of liver with ascites (HCC) LIPID PROFILE Routine 09/12/2023 2:34 PM PRODUCE SERVICE TEAM MEMBER Alcoholic cirrhosis, unspecified whether ascites present (HCC) Special screening for malignant neoplasm of prostate Fatigue, unspecified type Hyperglycemia ENDOSCOPY, COLON, DIAGNOSTIC Routine 11/28/2018 1:53 PM CDT HEPATITIS C AB SCREEN RFLX NAAT QUANT STAT 09/08/2018 11:34 AM PRODUCE SERVICE TEAM MEMBER HIV-1 HIV-2 ANTIGEN/ANTIBODY STAT 09/08/2018 11:34 AM PRODUCE SERVICE TEAM MEMBER from Last 3 Months or Most Recently Relevant to Health Maintenance Results * XR Hand Left 3Vw or More (08/31/2024 2:25 PM PRODUCE SERVICE TEAM MEMBER) Only the most recent of2 resultswithin the time period is included. Anatomical Region Laterality Modality Wrist / Hand Digital Radiogra phy 09/01/2024 2:32 PM PRODUCE SERVICE TEAM MEMBER Impressions 09/01/2024 2:35 PM PRODUCE SERVICE TEAM MEMBER IMPRESSION: Satisfactory interval reduction of the dislocation at the level of the second PIP joint with the second proximal phalanx and middle phalanx appearing anatomically aligned on the present study. No obvious abnormal soft tissue gas seen on the present study. > Interpreting Provider: Dino Ozuna MD on 09/01/2024 2:35 PM Narrative 09/01/2024 2:35 PM PRODUCE SERVICE TEAM MEMBER PROCEDURE: XR HAND LEFT 3VW OR MORE [...] CBC W AUTO DIFFERENTIAL (08/19/2024 4:28 PM PRODUCE SERVICE TEAM MEMBER) WBC 3.2(L) 4.0 - 10.7 x10E9/L 08/19/2024 5:13 PM [facility] RBC Count 3.88(L) 4.30 - 5.80 x10E12/L 08/19/2024 5:13 PM [facility] Hemoglobin 11.5(L) 13.3 - 17.5 g/dL 08/19/2024 5:13 PM [facility] Hematocrit 35.6(L) 38.7 - 51.1 % 08/19/2024 5:13 PM [facility] MCV 91.8 80.0 - 98.0 fL 08/19/2024 5:13 PM [facility] MCH 29.6 26.7 - 33.6 pg 08/19/2024 5:13 PM [facility] MCHC 32.3 31.7 - 36.3 g/dL 08/19/2024 5:13 PM [facility] RDW-CV 16.6(H) 11.3 - 14.8 % 08/19/2024 5:13 PM [facility] Platelet Count 41(L) 150 - 420 x10E9/L 08/19/2024 5:13 PM [facility] MPV 12.2(H) 7.8 - 11.4 fL 08/19/2024 5:13 PM [facility] Neutrophil % 56.5 41.0 - 74.0 % 08/19/2024 5:13 PM [facility] Lymphocyte % 25.9 17.0 - 47.0 % 08/19/2024 5:13 PM [facility] Monocyte % 13.2(H) 3.0 - 11.0 % 08/19/2024 5:13 PM [facility] Eosinophil % 2.8 0.0 - 7.0 % 08/19/2024 5:13 PM [facility] Basophil % 1.3 0.0 - 1.6 % 08/19/2024 5:13 PM [facility] Immature Granulocytes % 0.3 0.0 - 1.0 % 08/19/2024 5:13 PM [facility] Neutrophil Absolute 1.79 1.60 - 7.50 x10E9/L 08/19/2024 5:13 PM [facility] Lymphocyte Absolute 0.82(L) 1.00 - 4.40 x10E9/L 08/19/2024 5:13 PM [facility] Monocyte Absolute 0.42 0.15 - 1.00 x10E9/L 08/19/2024 5:13 PM [facility] Eosinophil Absolute 0.09 0.00 - 0.60 x10E9/L 08/19/2024 5:13 PM [facility] Basophil Absolute 0.04 0.00 - 0.13 x10E9/L 08/19/2024 5:13 PM [facility] Blood BLOOD SPECIMEN / Unknown Venipuncture / Unknown 08/19/2024 4:28 PM PRODUCE SERVICE TEAM MEMBER 08/19/2024 4:38 PM PRODUCE SERVICE TEAM MEMBER Ashly Joy PA-C LAB - HEMATOL OGY ORDERABLES [facility] [address] [place] [address], [facility] [phone] * (ABNORMAL) COMPREHENSIVE METABOLIC PANEL (06/08/2024 1:33 PM PRODUCE SERVICE TEAM MEMBER) BUN 23 7 - 26 mg/dL 06/08/2024 2:25 PM [facility] Creatinine 1.42(H) 0.71 - 1.16 mg/dL 06/08/2024 2:25 PM [facility] Sodium 138 136 - 145 mmol/L 06/08/2024 2:25 PM [facility] Potassium 4.3 3.5 - 4.5 mmol/L 06/08/2024 2:25 PM [facility] Chloride 106 98 - 107 mmol/L 06/08/2024 2:25 PM [facility] CO2 24 22 - 29 mmol/L 06/08/2024 2:25 PM [facility] Glucose 96 70 - 99 mg/dL 06/08/2024 2:25 PM [facility] Calcium 9.5 8.4 - 10.2 mg/dL 06/08/2024 2:25 PM [facility] Protein Total 7.6 6.0 - 8.3 g/dL 06/08/2024 2:25 PM [facility] Albumin 3.2(L) 3.4 - 5.0 g/dL 06/08/2024 2:25 PM [facility] Bilirubin Total 2.0(H) 0.2 - 1.2 mg/dL 06/08/2024 2:25 PM [facility] Alkaline Phosphatase 106 40 - 150 U/L 06/08/2024 2:25 PM [facility] ALT 25 5 - 55 U/L 06/08/2024 2:25 PM [facility] AST 42(H) 5 - 34 U/L 06/08/2024 2:25 PM [facility] Anion Gap 8 6 - 16 06/08/2024 2:25 PM [facility] BUN/Creatinine Ratio 16 7 - 23 06/08/2024 2:25 PM [facility] Osmolality Calculated 290 275 - 295 mOsm/kg 06/08/2024 2:25 PM [facility] Albumin/Globulin Ratio 0.7(L) 1.1 - 2.3 06/08/2024 2:25 PM [facility] eGFR by CKD-EPI 56(L) >=90 mL/min/1.7 3 m2 06/08/2024 2:25 PM [facility] Blood BLOOD SPECIMEN / Unknown Lab Venipuncture / Unknown 06/08/2024 1:33 PM PRODUCE SERVICE TEAM MEMBER 06/08/2024 1:49 PM [facility] Deloris Ferris REVENUE FIELD AUDITOR-ABSORPTION OPERATOR LAB - CHEMI STRY ORDERABLES [facility] [address] [place] [address], [facility] [phone] * LIPID PROFILE (09/12/2023 2:34 PM PRODUCE SERVICE TEAM MEMBER) Cholesterol Total 160 <200 mg/dL 09/12/2023 3:19 PM [facility] HDL 59 >40 mg/dL 09/12/2023 3:19 PM [facility] Comment: ATP III Classification of HDL Cholesterol: <40 mg/dL: Considered a major risk factor. >60 mg/dL: Considered a negative risk factor. LDL Calculated 89 <100 mg/dL 09/12/2023 3:19 PM [facility] Comment: ATP III Classification of LDL Cholesterol: <100 mg/dL: Optimal 100 - 129 mg/dL: Near Optimal/Above Optimal 130 - 159 mg/dL: Borderline High 160 - 189 mg/dL: High >190 mg/dL: Very High Triglycerides 60 <150 mg/dL 09/12/2023 3:19 PM [facility] Comment: ATP III Classification of Triglycerides: <150 mg/dL: Normal 150 - 199 mg/dL: Borderline High 200 - 400 mg/dL: High >500 mg/dL: Very High Blood BLOOD SPECIMEN / Unknown Lab Venipuncture / Unknown 09/12/2023 2:34 PM PRODUCE SERVICE TEAM MEMBER 09/12/2023 2:50 PM PRODUCE SERVICE TEAM MEMBER Perfecto Contreras PA-C LAB - GAME PRESERVE MANAGER RY ORDERABLES [place] [id number] [place] [address], [facility] [phone] * ENDOSCOPY, COLON, DIAGNOSTIC (11/28/2018 1:53 PM [...] and oxygen saturations were monitored continuously. The CF-OD773P was introduced through the anus and advanced [...] malignant neoplasm of colon CPT copyright 2016 [employer]. All rights reserved. The codes documented in this report are preliminary and upon civil engineering intern review may be revised to meet current compliance requirements. Julio Cesar Leonard, 11/28/2018 2:31:42 PM Note Initiated On: 11/28/2018 1:53 PM Number of Addenda: [address] 11/28/2018 1:53 PM CDT Julio Cesar Leonard MD GI PROCEDURE O RDERABLES Performing Organization Address [facility] de Phone Number [facility] * HIV-1 HIV-2 ANTIGEN/ANTIBODY (09/08/2018 11:34 AM PRODUCE SERVICE TEAM MEMBER) HIV Antigen/Antibod y 1 & 2 Non-reacti ve Non-react titus 09/08/2018 12:17 PM PRODUCE SERVICE TEAM MEMBER [facility] Comment: Neither HIV-1 p24 Antigen nor HIV-1/HIV-2 Antibodies are detected. Blood BLOOD SPECIMEN / Unknown Venipuncture / Unknown 09/08/2018 11:34 AM PRODUCE SERVICE TEAM MEMBER 09/08/2018 11:37 AM PRODUCE SERVICE TEAM MEMBER Maureen Wilcox MD LAB - HEMATOLOGY ORD ERABLES Performing Organization Address [facility] [place] [address], [place] [phone] * HEPATITIS C AB SCREEN RFLX NAAT QUANT (09/08/2018 11:34 AM PRODUCE SERVICE TEAM MEMBER) Hepatitis C Antibody Non-react titus Non-reac tive 09/08/2018 12:17 PM PRODUCE SERVICE TEAM MEMBER [facility] Comment: Hepatitis C Antibody screen indicates no serologic evidence of past or current infection with Hepatitis C Virus. Patients with unexplained liver disease who are immunocompromised or suspected of having acute Hepatitis C infection may benefit from Nucleic Acid Test (CRYSTAL) for Hepatitis C Viral RNA to confirm Hepatitis C status. Blood BLOOD SPECIMEN / Unknown Venipuncture / Unknown 09/08/2018 11:34 AM PRODUCE SERVICE TEAM MEMBER 09/08/2018 11:37 AM PRODUCE SERVICE TEAM MEMBER Maureen Wilcox MD LAB - CHEMISTRY CINDA [facility] Organization Address City/State/ZIP Co de Phone Number [facility] [address] [phone] from Last 3 Months or Most Recently [...] 4:13 AM 09/13/2018 7:07 PM Care Teams Cellular Phone Repairer Relationship Specialty Start Date End Date Barron Adan MD [address] [place] [address] PCP - General Internal Medicine 08/31/24 Jt Collins, [place]-ABSORPTION OPERATOR [address] [place] [address] Nurse Practitioner 06/03/24
--- NOTE | 2024-10-10 17:57 | ED_ITS ---
HPI - Extremity Injury (Upper) General Chief Complaint: Extremity Injury, Upper Stated Complaint: FALL, L HAND,ARM INJURY Time Seen by Provider: 10/10/24 16:57 Source: patient Mode of arrival: ambulatory Limitations: no limitations History of Present Illness HPI narrative: This is a 64 year old male that presents to the ER for a fall today with left hand injury. Reports he has had some toes amputated and this causes him to lose his balance. He tripped on an uneven sidewalk and fell. Caught himself with his left hand. Reports bruising, pain, and decreased ROM to the left 5th finger. Related Data Home Medications ?Medication ?Instructions ?Recorded ?Confirmed ?Last Taken ?Type omeprazole 20 mg capsule,delayed 40 mg PO BID 08/19/19 09/10/24 02/15/23 History release thiamine HCl (vitamin B1) 250 mg 250 mg PO DAILY 08/19/19 09/10/24 02/15/23 History tablet nadolol 20 mg tablet 40 mg PO DAILY 08/09/21 09/10/24 02/15/23 History furosemide 40 mg tablet 40 mg PO DAILY 08/29/22 09/10/24 02/15/23 History spironolactone 100 mg tablet 100 mg PO DAILY 08/29/22 09/10/24 02/15/23 History ciprofloxacin HCl 500 mg tablet 500 mg PO DAILY 09/04/23 09/10/24 Unknown History Allergies Allergy/AdvReac Type Severity Reaction Status Date / Time No Known Allergies Allergy Unknown Verified 10/10/24 15:14 Review of Systems Review of Systems: CONSTITUTIONAL: Denies fever SKIN: Reports laceration MUSCULOSKELETAL: Reports joint pain, and myalgia. NEUROLOGIC: Denies numbness All systems reviewed & are unremarkable except as noted in HPI and below PMFSH Past Medical History Medical History (Updated 10/10/24 @ 18:49 by Jessica Adhikari PA-C) BMI 29.0-29.9,adult Chronic hyponatremia Thrombocytopenia Chronic anemia Chronic kidney disease, stage 3 Neuropathy Necrotizing fasciitis of ankle and foot Gastroesophageal reflux disease Paroxysmal atrial fibrillation Alcoholic cirrhosis of liver He has abstained from alcohol since July 2020. Essential hypertension Surgical History Surgical History (Reviewed 02/14/24 @ 10:23 by Sonya Erwin [facility]) Status post transmetatarsal amputation of left foot Amputation of toe of left foot History of surgery on arm (2012) ORIF right humerus fracture. History of ventral hernia repair (11/2013) Subsequent abdominal wall exploration with drainage of a seroma at the same site in 03/2014. History of surgery on wrist Family History Family History (Updated 09/10/24 @ 14:30 by ANICETO Gant) Mother Hypertension Family history of diabetes mellitus in first degree relative Diabetes mellitus Father Family history of pancreatic cancer Sibling Diabetes mellitus Heart disease Social History Social History (Updated 09/10/24 @ 14:30 by ANICETO Gant) Social History: Surrogate medical decision maker: Shawna Garner, daughter. Code status: Full code. Smoking status: Never smoker Second hand tobacco smoke exposure: Yes Alcohol intake: current Drinks per week: 5 Alcohol use details: History of heavy alcohol use, now rare alcohol use in moderation. Substance use: current Substance use type: marijuana Other substance usage details: EDIBLES, SMOKES MARIJUANA Last use: 02/14/23 Do You Feel Safe in your Home?: Yes Lack of Transportation: No Lack of Food: Never True Current Housing: I Have Housing Concerned About Future Housing: No Difficulty Paying Gas/Electric Bills: No Difficulty Paying for Meds: No Currently Unemployed: No Education: High School Diploma/GED Difficulty w/ Childcare or Family Care: No Living arrangements: alone Additional living arrangements comments: Lives alone in [place]. Occupation/Education: retired Additional occupation/education comments: [employer]. Gender identity (if verbalized by the patient): Male Spiritual care concerns: No Exam Narrative: GENERAL: Well-appearing, well-nourished, and in no acute distress. HEAD: Normocephalic, atraumatic. EYES: EOMI. EXTREMITIES: Normal range of motion, except decreased active ROM in the left 5th finger with edema and bruising. 1.5cm linear laceration into subcutaneous tissue to the left 5th finger middle phalanx SKIN: Warm, dry, no rash. NEURO: No focal deficits. Alert and oriented x3. PSYCH: Normal mood and affect Course Course Emergency Course: patient updated on workup and agrees with plan of care Vital Signs Vital signs: Vital Signs Temperature 97.6 F 10/10/24 15:19 Pulse Rate 69 10/10/24 15:19 Respiratory Rate 18 10/10/24 15:19 Blood Pressure 117/89 10/10/24 15:19 Pulse Oximetry 99 10/10/24 15:19 Oxygen Delivery Room Air 10/10/24 15:19 Temperature 97.6 F 10/10/24 15:19 Pulse Rate 69 10/10/24 15:19 Respiratory Rate 18 10/10/24 15:19 Blood Pressure 117/89 10/10/24 15:19 Pulse Oximetry 99 10/10/24 15:19 Oxygen Delivery Room Air 10/10/24 15:19 Procedures Laceration Laceration 1: Date: 10/10/24 Time: 18:52 Site: hand Side (If applicable): left Size (cm): 1.5 Description: linear Depth: simple, single layer Local Anesthetic: lidocaine 1% Amount of anesthesia used (mL): 2 Pre-repair: wound explored and irrigated extensively ====== Skin Level ====== Skin layer closed with: nylon Size (cm): 4-0 Number of sutures: 3 Technique: simple, interrupted ====== Subcutaneous Layer ====== ====== Muscle Layer ====== ====== Tendon Layer ====== Orthopedic Splinting/Casting Injury #1: Splinting/Casting Date: 10/10/24 Splinting/Casting Time: 18:54 Side: left Upper Extremity Immobilizer: finger (other) Pre-Procedure Neuro Vascular Exam: normal Post-Procedure Neuro Vascular Exam: normal MDM - Extremity Injury (Upper) MDM Narrative Medical decision making narrative: Patient presents to the emergency department after a fall today with left 5th finger injury. Patient is neurovascularly intact. Left hand x-ray shows minimally displaced, mildly angulated intra-articular fracture of the proximal aspect of the left 5th proximal phalanx. He also sustained a laceration over the middle phalanx. His wound was thoroughly irrigated and closed with sutures. He is up-to-date on tetanus vaccination. Given a dose of Ancef. Will be started on prophylactic antibiotics. Placed in a finger splint. He reports he has a hand surgeon that he sees. Will follow up with them in clinic. He was given warnings to return to the ER Differential Diagnosis Differential diagnosis: Likely finger sprain, dislocation of finger and other (finger fracture, laceration) Imaging Data Radiologist's impression: ITS Impressions Hand X-Ray 10/10/24 16:50 IMPRESSION: Minimally displaced, mildly impacted and angulated, intra-articular fracture of the proximal aspect of left fifth proximal phalanx. Critical Care Time Critical Care Time Critical Care Time: No Discharge Plan Discharge Clinical Impression: Laceration Finger fracture, left Qualifiers: Encounter type: initial encounter Finger: little finger Fracture type: closed Phalanx: proximal Fracture alignment: displaced Qualified Code(s): S62.617A - Displaced fracture of proximal phalanx of left little finger, initial encounter for closed fracture Patient Disposition: Home, Self-Care Condition: Stable Instructions: Antibiotic Form, Care For Your Stitches (ED), Laceration (ED), Finger Fracture (ED) Additional Instructions: Return to the emergency department if you experience fever, redness or swelling of your wound, abnormal drainage from your wound, or any other symptoms that are concerning to you. Apply antibiotic ointment daily. Do not soak the wound. Clean with mild soap and water daily. Wear your splint. Ice and elevate. Take oral antibiotic as prescribed. Pain medication as needed Follow-up with your hand surgeon Patient Language: Algerian Prescriptions: New cephalexin 500 mg capsule 500 mg PO Q8H 5 Days Qty: 15 0RF hydrocodone-acetaminophen 5-325 mg tablet 1 tablet PO Q8H PRN (Reason: pain) Qty: 20 0RF No Action omeprazole 20 mg capsule,delayed release(DR/EC) 40 mg PO BID thiamine HCl (vitamin B1) 250 mg tablet 250 mg PO DAILY spironolactone 100 mg tablet 100 mg PO DAILY furosemide 40 mg tablet 40 mg PO DAILY nadolol 20 mg tablet 40 mg PO DAILY ciprofloxacin HCl 500 mg tablet 500 mg PO DAILY gabapentin 300 mg capsule 900 mg PO TID Qty: 810 1RF cyclobenzaprine 5 mg tablet See Rx Instructions .ROUTE .COMPLEX Qty: 30 1RF Dose Instruction: TAKE 1 TABLET BY MOUTH EVERY DAY AT BEDTIME NEEDED FOR MUSCLE SPASM Rx Instructions: TAKE 1 TABLET BY MOUTH EVERY DAY AT BEDTIME NEEDED FOR MUSCLE SPASM Follow-up/Referrals: Jt Collins APRN [Primary Care Provider] -
[2024-10-10] MEDS: LIDOCAINE 1% LOCAL INJ 10 ML VIAL INFILTRATE (18:14)
[2024-10-10] MEDS: HYDROcodone/acetaminophen (*CRX) 5-325 MG TABLET 1 TAB PO (18:16)
[2024-10-10] MEDS: ceFAZolin SODIUM 1 GM VIAL IM (18:54)
== END 2024-10-10 19:02 | disposition home or self-care (01) ==
PROVIDERS: Emergency Provider Physician Assistant; PCP Nurse Practitioner
DX: S62.617A Displaced fracture of proximal phalanx of left little finger, initial encounter for closed fracture (principal); S61.217A Laceration without foreign body of left little finger without damage to nail, initial encounter; I48.0 Paroxysmal atrial fibrillation; E87.1 Hypo-osmolality and hyponatremia; I12.9 Hypertensive chronic kidney disease with stage 1 through stage 4 chronic kidney disease, or unspecified chronic kidney disease; N18.30 Chronic kidney disease, stage 3 unspecified; K70.30 Alcoholic cirrhosis of liver without ascites; D64.9 Anemia, unspecified; G62.9 Polyneuropathy, unspecified; K21.9 Gastro-esophageal reflux disease without esophagitis; Z89.432 Acquired absence of left foot; Z77.22 Contact with and (suspected) exposure to environmental tobacco smoke (acute) (chronic); Z79.899 Other long term (current) drug therapy; W01.0XXA Fall on same level from slipping, tripping and stumbling without subsequent striking against object, initial encounter
CPT/HCPCS: 12001; 29130; 73130; 96372; 99284; A9270; J0690; J2003